=== PATIENT | female | born 1970 | race Caucasian/White ===

== ENCOUNTER 2017-06-21 05:43 | Inpatient (IN) | payer OTHER, SELFPAY ==
[2017-06-21] VITALS (49 sets, daily range): BP systolic 82–171; BP diastolic 50–74; PULSE 49–83; RESP 9–23; TEMP 34.2–38.3; O2SAT 79–100; BMI 31.5; BMI 29.4; BMI 29.5
[2017-06-21] MEDS: Etomidate 20 MG/10 ML Vial IV (05:49)
[2017-06-21] MEDS: Rocuronium Bromide 50 MG/5 ML Vial 100 MG IV (05:49)
[2017-06-21] MEDS: Atropine Sulfate 1 MG/10 ML Syringe 0.5 MG IV (05:58)
[2017-06-21] MEDS: 0.9% Normal Saline 1,000 ML 999 ML IV (06:02)
--- NOTE | 2017-06-21 06:03 | EKG12_ITS ---
Test Reason : BRADYCARDIA Blood Pressure : / mmHG Vent. Rate : 058 BPM Atrial Rate : 057 BPM P-R Int : 000 ms QRS Dur : 158 ms QT Int : 530 ms P-R-T Axes : 000 125 -02 degrees QTc Int : 520 ms Atrial fibrillation Right bundle branch block Left posterior fascicular block Bifascicular block Abnormal ECG Confirmed by ALONZO JEREZ, GERRY ([id number]), news video editor MARYAN AMBRIZ ([id number]) on 06/24/2017 3:31:26 PM Referred By: CLARENCE Confirmed By:GERRY ROSADO MD
[2017-06-21] MEDS: 0.9% Normal Saline 1,000 ML 1000 ML IV ×3 (06:17→06:57)
--- NOTE | 2017-06-21 06:20 | RAD_ITS ---
STUDY: X-RAY CHEST REASON FOR EXAM: Female, 47 years old. Endotracheal tube placement. Respiratory distress TECHNIQUE: Single AP portable view of the chest. COMPARISON: June 03, 2017 FINDINGS: Hemodialysis catheter is seen on the right side its tip is at the cavoatrial junction. Endotracheal tube is seen its tip is 4 cm superior to the suki. An NG tube is seen its tip is below the diaphragm is in good position. Patchy airspace opacities are seen in the right and left lungs are unchanged since the previous study suggesting pneumonia. There is no demonstrated pleural abnormality. Normal size heart. Normal mediastinum and demarcus. Normal visualized pulmonary arteries. Normal visualized aortic arch and descending thoracic aorta. Normal visualized thoracic spine. Normal visualized ribs, clavicles, and shoulders. There is no demonstrated abnormality of the visualized soft tissue structures of the upper abdomen. RAD/Chest 1 View (Portable) IMPRESSION: Stable bilateral patchy pneumonia. Electronically Signed: Jose Antonio Paredes MD at 7:23 EST Tel , Service support ,
[2017-06-21 06:36] LABS: Bedside Glucose > 500 mg/dL (70-110)
[2017-06-21 06:40] LABS: International Normalized Ratio 1.8; Prothrombin Time (Protime)PT. 19.9 SECONDS (11.7-14.9)
[2017-06-21 06:41] LABS: Partial Thromboplast Time 40.8 Seconds (24.1-36.2)
[2017-06-21 06:48] LABS: Hematocrit 31.4 % (37-47); Hemoglobin 9.3 g/dl (12.0-15.0); Mean Corp Hgb Conc 29.6 g/gl (32-36); Mean Corpuscular Hgb 31.1 pg (27.0-32.0); Mean Platelet Vol. 13.4 fl (6.2-12.0); Platelet Count 143 K/mm3 (150-450); Red Blood Count 2.99 M/mm3 (4.2-5.4); White Blood Count 11.9 K/mm3 (4.4-11.0)
[2017-06-21 06:49] LABS: Differential Indicated MANUAL DIFF; POSITIVE COUNT NO; POSITIVE DIFFERENTIAL NO; POSITIVE MORPHOLOGY YES
[2017-06-21 06:50] LABS: Base Excess -16 mmol/L (-2 to +2); Bicarbonate 13.6 mmol/L (22-26); Blood Gas Specimen Type ART; FI02 100; Mode A-C; O2 Delivery Device Vent; PEEP 5; PO2 155 mmHG (75-100); RR 14; SITE R Brachial; SO2 98 % (95-99); Time Given 630; Total Carbon Dioxide 15 mmol/L; Vt 450; pCO2 45.3 mmHg (35-45); pH 7.09 (7.35-7.45)
[2017-06-21] MEDS: Sodium Polystyrene Sulfonate 15 GM/60 ML UDC 30 GM PO (06:57)
[2017-06-21] MEDS: Calcium Chloride 1 GM/10 ML Syringe IV ×2 (06:57→07:19)
[2017-06-21] MEDS: Albuterol 2.5 MG/3 ML VIAL.NEB. INHALATION ×6 (07:01→23:17)
[2017-06-21 07:05] LABS: ALB/GLOB Ratio 0.5 RATIO (0.9-2.4); AST(SGOT) 127 U/L (15-37); Alanine Aminotransfer ALT/SGPT 73 U/L (13-56); Albumin, Serum 2.6 g/dL (3.2-5.0); Alkaline Phosphatase 535 U/L (45-117); Anion Gap 22 (5-15); BUN 50 mg/dL (7-18); BUN/Creat Ratio 6.8 RATIO (10-20); Chloride 91 mmol/L (98-107); Creatinine, Serum 7.39 mg/dL (0.55-1.02); EST Glomerular Filtration Rate 6 mL/min (>60); Est Glom Filt Rate - Afr Amer 8 mL/min (>60); Estimated Creatinine Clearance 9.49 ml/min; Globulin 4.9 g/dL (2.2-4.2); Glucose 694 mg/dL (70-110); Lactic Acid 12.6 mmol/L (0.4-2.0); Magnesium 3.5 mg/dL (1.6-2.6); Potassium 9.1 mmol/L (3.5-5.1); Protein, Total 7.5 g/dL (6.4-8.2); Sodium Level 128 mmol/L (136-145)
--- NOTE | 2017-06-21 07:06 | ED.RN ---
POTASSIUM 9.1 GLUCOSE 694 PHOS 13 [id number] CALL[address] LAB. DR LIMA AWARE
[2017-06-21] MEDS: 0.9% Normal Saline 1,000 ML 150 ML IV (07:19)
--- NOTE | 2017-06-21 07:20 | NURSING ---
VERSED STARTED AT 0637 AM. NOT COMING ACROSS IN THE COMPUTER TO SCAN.
--- NOTE | 2017-06-21 07:21 | ED.RN ---
Pacing stopped at 0711 by .
[2017-06-21 07:22] LABS: Anisocytosis 1+; Eosinophil 1 % (0-5); Hypochromasia 1+; Lymphocyte 16 % (19-41); Metamyelocyte 4 % (0-1); Monocyte 7 % (0-10); Neutrophil-Band 2 % (0-5); Neutrophil-Segmented 70 % (47-70); Nucleated Red Bld Cells,Manual 2 % (0-5); Polychromasia 1+; Total Cells Counted 100 (MANUAL DIFF)
[2017-06-21 07:23] LABS: Platelet Estimate SLT (ADEQ); Platelet Morphology LARGE
[2017-06-21 07:25] LABS: Absolute Neutrophil Count 8.6 X10^3/uL (2.0-7.7); Absolute Nucleated RBC Count 0.57 10^3/uL (0-5); NRBC Flagged by Analyzer 4.8 % (0-5)
--- NOTE | 2017-06-21 07:47 | ED.VISSUMM ---
- ER Visit Summary Date of Service: 06/21/17 Chief Complaint: Unresponsive History of Present Illness: The patient is a 47 F brought in by EMS for an unresponsive episode. The patient could not provide history, and so it was obtained from EMS and later her . The patient has a history of end-stage renal disease and is on hemodialysis Saturday, Saturday, and Saturday. Her last dialysis was Saturday. She had a fistula placed on Saturday. She missed dialysis on Saturday because she was not feeling well. was uneventful, but this morning she was very weak and had difficulty breathing. Her was unable to check her sugar. According to EMS, the patient's blood sugar read high. She had an altered mental status and was confused. She was hypoxic, and they had trouble obtaining an IV. They placed an IO and they were bagging the patient on arrival. The patient made some mumbling sounds, but I could not get any other information out of her on arrival. Physical Examination: Vital signs unremarkable except for hypothermia at 95? and bradycardia in the 50s with occasional pauses on the monitor. GCS was 10. Head and neck atraumatic. Airway intact. Coarse breath sounds bilaterally. Abdomen soft. Extremities grossly atraumatic. Skin appears slightly pale. Test Results: EKG showed signs of hyperkalemia with flattened T waves and wide QRS complexes. The rate was 58. White count 11.9, hemoglobin 9.3, and platelets 143. Sodium 128, potassium 9.1, chloride 91, CO2 15, anion gap 22, glucose 694, BUN 50, creatinine 7.93. Total bilirubin 1.1, alk phos 535, ALT 73, AST 127. INR 1.8 and PTT 40.8. Troponin normal. Lactate 12.6. Ketones negative. [place] 13. Mag 3.5. PH was 7.09, CO2 45.3, O2 155. Blood cultures and urine culture pending. Chest x-ray showed a patchy pneumonia and an endotracheal tube in good position. Emergency Department Course and Treatment: Patient arrived to the emergency department by EMS and immediately was taken to the resuscitation bay. She was hypoxic and had poor mentation. IV access was obtained. RSI was performed. She was treated with etomidate and rocuronium. She was intubated. First attempt with the Glidescope failed. Second attempt with direct visualization failed because the 7.5 tube was too big. Third attempt with the 7.0 tube was successful. She had good breath sounds and color change on capnography. Patient was placed on a ventilator. She did have some transient hypoxia. Her left lung was diminished, and so the endotracheal tube was removed about 3-4 cm. We had good breath sounds afterwards and a chest x-ray was taken that showed fluid overload and possible patchy infiltrates bilaterally. Endotracheal tube was in good position. Patient had IV access and fluid resuscitation was performed. She became hypotensive with a map in the mid 50s. Her heart rate was in the 50s as well with occasional pauses. The monitor appeared to show narrow complexes. She was given atropine with no effect. She was externally paced while awaiting results and while continuing resuscitation. A preliminary result from the lab was called and her potassium was 9. We obtained an EKG. This showed a wide QRS complex with flattened T waves, not quite sinusoidal. She was treated with calcium chloride, bicarb, Kayexalate, albuterol, insulin. I spoke with Dr. Jessica from nephrology. He is arranging for someone to come down to assess her for dialysis. I also spoke with Dr. Small, fiber technologist, and he is coming to evaluate the patient. We continued fluid resuscitation. She was started on cefepime. Blood cultures are pending. Her Versed sedation was changed to fentanyl. She was placed on an insulin drip. Dr. Small made some adjustments to her ventilator settings. Her blood pressure has improved to around 120 systolic. Heart rate about 60. She did not require further pacing. Her rhythm strip improved and showed sinus rhythm with a better QRS complex and T-wave morphology. According the sepsis guidelines, the patient had 30mL/kg normal saline. Cultures are pending. She was started on cefepime for pneumonia coverage. Hospitalist is at the bedside evaluating the patient for admission. is at the bedside. He was updated. The patient is full code. Treatment Plan: As above Disposition: Admission to ICU Impression: 1. Hypoxic respiratory failure 2. Hyperkalemia 3. Hyperglycemia 4. Pneumonia 5. Septic shock 6. End-stage renal disease This note was generated with ebridgeation software. It may contain incorrect words, spelling, and punctuation that were not noted in review of the chart prior to signing ED Disposition - Plan for ED Patient: Chief Complaint: Hyperglycemia Referrals: Town Doctor,Out of [Primary Care Provider] -
--- NOTE | 2017-06-21 08:00 | ED.DCSUM_ITS ---
- ER Visit Summary Date of Service: 06/21/17 Chief Complaint: Unresponsive History of Present Illness: The patient is a 47 F brought in by EMS for an unresponsive episode. The patient could not provide history, and so it was obtained from EMS and later her . The patient has a history of end- stage renal disease and is on hemodialysis Saturday, Saturday, and Saturday. Her last dialysis was Saturday. She had a fistula placed on Saturday. She missed dialysis on Saturday because she was not feeling well. was uneventful , but this morning she was very weak and had difficulty breathing. Her was unable to check her sugar. According to EMS, the patient's blood sugar read high. She had an altered mental status and was confused. She was hypoxic , and they had trouble obtaining an IV. They placed an IO and they were bagging the patient on arrival. The patient made some mumbling sounds, but I could not get any other information out of her on arrival. Physical Examination: Vital signs unremarkable except for hypothermia at 95? and bradycardia in the 50s with occasional pauses on the monitor. GCS was 10. Head and neck atraumatic. Airway intact. Coarse breath sounds bilaterally. Abdomen soft. Extremities grossly atraumatic. Skin appears slightly pale. Test Results: EKG showed signs of hyperkalemia with flattened T waves and wide QRS complexes. The rate was 58. White count 11.9, hemoglobin 9.3, and platelets 143. Sodium 128, potassium 9.1 , chloride 91, CO2 15, anion gap 22, glucose 694, BUN 50, creatinine 7.93. Total bilirubin 1.1, alk phos 535, ALT 73, AST 127. INR 1.8 and PTT 40.8. Troponin normal. Lactate 12.6. Ketones negative. [place] 13. Mag 3.5. PH was 7.09, CO2 45.3, O2 155. Blood cultures and urine culture pending. Chest x-ray showed a patchy pneumonia and an endotracheal tube in good position. Emergency Department Course and Treatment: Patient arrived to the emergency department by EMS and immediately was taken to the resuscitation bay. She was hypoxic and had poor mentation. IV access was obtained. RSI was performed. She was treated with etomidate and rocuronium. She was intubated. First attempt with the Glidescope failed. Second attempt with direct visualization failed because the 7.5 tube was too big. Third attempt with the 7.0 tube was successful. She had good breath sounds and color change on capnography. Patient was placed on a ventilator. She did have some transient hypoxia. Her left lung was diminished, and so the endotracheal tube was removed about 3-4 cm. We had good breath sounds afterwards and a chest x-ray was taken that showed fluid overload and possible patchy infiltrates bilaterally. Endotracheal tube was in good position. Patient had IV access and fluid resuscitation was performed. She became hypotensive with a map in the mid 50s. Her heart rate was in the 50s as well with occasional pauses. The monitor appeared to show narrow complexes. She was given atropine with no effect. She was externally paced while awaiting results and while continuing resuscitation. A preliminary result from the lab was called and her potassium was 9. We obtained an EKG. This showed a wide QRS complex with flattened T waves, not quite sinusoidal. She was treated with calcium chloride, bicarb, Kayexalate, albuterol, insulin. I spoke with Dr. Jessica from nephrology. He is arranging for someone to come down to assess her for dialysis. I also spoke with Dr. Small, drawer in [employer], and he is coming to evaluate the patient. We continued fluid resuscitation. She was started on cefepime. Blood cultures are pending. Her Versed sedation was changed to fentanyl. She was placed on an insulin drip. Dr. Small made some adjustments to her ventilator settings. Her blood pressure has improved to around 120 systolic. Heart rate about 60. She did not require further pacing. Her rhythm strip improved and showed sinus rhythm with a better QRS complex and T-wave morphology. According the sepsis guidelines, the patient had 30mL/kg normal saline. Cultures are pending. She was started on cefepime for pneumonia coverage. Hospitalist is at the bedside evaluating the patient for admission. is at the bedside. He was updated. The patient is full code. Treatment Plan: As above Disposition: Admission to ICU Impression: 1. Hypoxic respiratory failure 2. Hyperkalemia 3. Hyperglycemia 4. Pneumonia 5. Septic shock 6. End-stage renal disease This note was generated with DECAation software. It may contain incorrect words, spelling, and punctuation that were not noted in review of the chart prior to signing ED Disposition - Plan for ED Patient: Chief Complaint: Hyperglycemia Referrals: Town Doctor,Out of [Primary Care Provider] -
--- NOTE | 2017-06-21 08:01 | PCM.CON.CC ---
Reason for Consult Date of Consultation: 06/21/17 Reason for Consultation: Respiratory failure/metabolic encephalopathy History of Present Illness: The patient is a 47-year-old female, with a history as outlined below, who presented to the emergency department on the morning of June 21 after being found in an encephalopathic state by her . She does have a history of end-stage renal disease, for which she receives hemodialysis on Saturday/Saturday/Saturday. Her reports that this past Saturday she underwent fistula creation at [facility]. Shortly thereafter she began to feel ill and fatigued. She subsequently missed her Saturday dialysis session. He notes that upon awakening her this morning, she was quite lethargic and speaking in a nonsensical manner. The patient was recently admitted to the hospital May 17 through June 03 with DKA, respiratory failure and encephalopathy. On presentation to the emergency department, the patient was noted to be afebrile, bradycardic but hemodynamically stable. She was initially documented to be saturating 79% on room air. Initial laboratory evaluation revealed elevated white blood cell count to 12,000. INR was noted to be 1.8. Initial arterial blood gas revealed a pH of 7.09 with a corresponding PCO2 of 45. Chemistry profile was notable for a sodium of 128, potassium of 9.1, chloride of 91, serum bicarbonate of 15 and a creatinine of 7.39. The patient's glucose was significantly elevated to 694. Serum lactate was elevated to 12.6 and phosphorus was elevated to 13. Serum acetone level was negative. MRSA screen was negative. Initial plain film chest x-ray revealed patchy airspace opacities bilaterally. Given her an encephalopathic state on presentation to the ED, she was emergently intubated. The patient did receive supplemental IV fluids and was started on an insulin drip. The patient also became bradycardic. She did have EKG changes consisting of wide complex QRS. She was also started on antibiotics and subsequently transferred to the medical intensive care unit for ongoing management. Past Medical History Past Medical History (Chronic Problems): Chronic Problems End stage renal disease on dialysis (Chronic) Polyclonal gammopathy (Chronic) PAF (paroxysmal atrial fibrillation) (Chronic) Glaucoma (Chronic) Depression (Chronic) Hyperuricemia (Chronic) Hypertension (Chronic) DM type 1 (diabetes mellitus, type 1) (Chronic) Anemia (Chronic) Allergies Penicillins [PCN] Allergy (Verified 12/31/16 05:13) Hives Home Medications: Ambulatory Orders Medication Instructions Recorded Albuterol Inhaler [Ventolin Hfa] 2 puff INHALATION Q4H PRN PRN 10/28/16 Allopurinol [Zyloprim] 200 mg PO DAILY 10/28/16 Amlodipine [Norvasc] 10 mg PO DAILY 10/28/16 B Complex with Vitamin C 1 each PO DAILY 10/28/16 [B-Complex Plus Vitamin C] Calcium Acetate 667 mg PO TID 10/28/16 Docusate Sodium [Colace] 100 mg PO DAILY 10/28/16 Ergocalciferol [Vitamin D] 50,000 unit PO Q7D 10/28/16 Fluticasone 0.05% [Flonase Nasal 1 spray NASAL DAILY 10/28/16 [place]] Gabapentin [Neurontin] 100 mg PO QHS 10/28/16 Insulin Aspart [Novolog Flexpen] See Protocol SC TIDCM 10/28/16 Latanoprost 0.005% [Xalatan 1 drop EACH EYE QHS 10/28/16 Opthalmic] Levothyroxine [Synthroid] 50 mcg PO DAILY 10/28/16 Multivitamin/Iron/Folic Acid 1 each PO DAILY 10/28/16 [Centrum Adults Tablet] ProMETHAzine [Phenergan] 25 mg PO Q4H PRN PRN 10/28/16 Venlafaxine XR [Effexor Xr] 150 mg PO DAILY 10/28/16 Insulin Glargine [Lantus SoloStar 10 units SC QHS 05/17/17 Pen] Sevelamer Carbonate [Renvela] 800 mg PO TID 05/17/17 Metoprolol Tartrate [Lopressor 25 mg PO BID #60 tab 06/03/17 (beta dutch)] Vancomcyin 125 MG/ 5 ML Susp 125 mg PO Q6 #24 po.syringe 06/03/17 [Vancomycin 125mg/5mL Susp] Surgical History: hysterectomy, - - PD catheter placement, tunneled dialysis catheter placement Smoking Status: Never smoker - *Family History Maternal History Items: - - unable to obtain as pt is confused Review of Systems Unable to obtain accurate/complete ROS d/t: Due to current intubation and mechanical ventilation status Patient Problems: Active and Suspected Problems Hyperphosphatemia (Acute) Lactic acidosis (Acute) Abnormal LFTs (Acute) Metabolic acidosis (Acute) Objective: The patient's most recent lab work, culture data and imaging studies have all been personally reviewed. Blood cultures are pending. Rapid influenza screen was negative. Surface echocardiogram dated April 2017 revealed normal LV size and function with an ejection fraction of 50%. There was evidence of moderate pulmonary hypertension with a pulmonary artery systolic pressure estimated to be 64 mmHg. - Physical Exam General: - - Intubated and mechanically ventilated. Currently tolerating assist control without dyssynchrony noted. HEENT: Atraumatic, PERRLA, Normocephalic Oral: Moist Mucosa, No Gingival or Mucosal Lesions/ Ulcerations, - - Endotracheal and OG tubes in place Neck: Supple, No Nodes, Trachea Midline Lungs: No wheeze, Diminished, Rales, Rhonchi, - - Chest wall catheter in place. Cardiovascular: Normal S1, Normal S2, No murmurs, Irregular Rate Abdomen: Bowel Sounds Present, Soft, Non Tender, Obese Extremities: No clubbing, No cyanosis, No edema Skin: No rashes, No breakdown Musculoskeletal: No Muscle Wasting Lymphatic: No Cervical, Supraclavicular, or Inguinal Adenopathy Neurological: - - Nonfocal examination Vital Signs Temp Pulse Resp BP Pulse Ox 95.1 F L 68 18 128/65 H 100 06/21/17 07:39 06/21/17 07:40 06/21/17 07:40 06/21/17 07:39 06/21/17 07:40 Oxygen Delivery Method Mechanical Ventilator Weight: 207 lb 3.752 oz Body Mass Index (BMI) 31.5 Finger Stick Blood Glucose 600 Intake and Output for Last 24 Hours 06/19/17 06/20/17 06/21/17 23:59 23:59 23:59 Output Total 800 / 800 Balance -800 / -800 Microbiology Past 72 Hours 06/21/17 07:30 Influenza Types A,B Direct FA (BRIGIDO) - Final Mucosa - Nasopharyngeal Laboratory Tests Past 24 Hrs 06/21/17 06/21/17 06/21/17 06:00 06:00 06:00 WBC 11.9 H RBC 2.99 L Hgb 9.3 L Hct 31.4 L MCV 105.0 H MCH 31.1 MCHC 29.6 L RDW 19.0 H RDW Differential 72.0 H Plt Count 143 L MPV 13.4 H Neut % (Auto) Not Reportable Absolute Neuts (auto) 8.6 H Absolute Lymphs (auto) 1.90 Total Counted 100 Neutrophils % (Manual) 70 Band Neutrophils % 2 Lymphocytes % (Manual) 16 L Monocytes % (Manual) 7 Eosinophils % (Manual) 1 Metamyelocytes % 4 H Nucleated RBC % 4.8 Nucleated RBCs/100 WBC 2 Diff Path Review May foll Platelet Estimate SLT Plt Morphology Comment LARGE Polychromasia 1+ Hypochromasia 1+ Anisocytosis 1+ Absolute Retic 0.57 PT 19.9 H INR 1.8 APTT 40.8 H Specimen Type Sample Site pH Bicarbonate Actual POC Total CO2 Base Excess O2 Saturation O2 % ABG pCO2 ABG pO2 Respiration Rate O2 Delivery Device Vent Mode Tidal Volume POC PEEP Blood Gas Notified Whom Blood Gas Notified Time Sodium 128 L Potassium 9.1 H* Chloride 91 L Carbon Dioxide 15.0 L Anion Gap 22 H BUN 50 H Creatinine 7.39 H Estim Creat Clear Calc 9.49 Est GFR (MDRD) Af Amer 8 L Est GFR (MDRD) Non-Af 6 L BUN/Creatinine Ratio 6.8 L Glucose 694 H* Lactic Acid Calcium 9.0 Phosphorus 13.0 H* Magnesium 3.5 H Total Bilirubin 1.10 H AST 127 H ALT 73 H Alkaline Phosphatase 535 H Troponin I < 0.02 Total Protein 7.5 Albumin 2.6 L Globulin 4.9 H Albumin/Globulin Ratio 0.5 L Acetone Level 06/21/17 06/21/17 06/21/17 06:00 06:00 06:39 WBC RBC Hgb Hct MCV MCH MCHC RDW RDW Differential Plt Count MPV Neut % (Auto) Absolute Neuts (auto) Absolute Lymphs (auto) Total Counted Neutrophils % (Manual) Band Neutrophils % Lymphocytes % (Manual) Monocytes % (Manual) Eosinophils % (Manual) Metamyelocytes % Nucleated RBC % Nucleated RBCs/100 WBC Diff Path Review Platelet Estimate Plt Morphology Comment Polychromasia Hypochromasia Anisocytosis Absolute Retic PT INR APTT Specimen Type ART Sample Site R Brachial pH 7.09 L* Bicarbonate Actual 13.6 L POC Total CO2 15 Base Excess -16 L O2 Saturation 98 O2 % 100 ABG pCO2 45.3 H ABG pO2 155 H Respiration Rate 14 O2 Delivery Device Vent Vent Mode A-C Tidal Volume 450 POC PEEP 5 Blood Gas Notified Whom ED MD Blood Gas Notified Time 630 Sodium Potassium Chloride Carbon Dioxide Anion Gap BUN Creatinine Estim Creat Clear Calc Est GFR (MDRD) Af Amer Est GFR (MDRD) Non-Af BUN/Creatinine Ratio Glucose Lactic Acid 12.6 H* Calcium Phosphorus Magnesium Total Bilirubin AST ALT Alkaline Phosphatase Troponin I Total Protein Albumin Globulin Albumin/Globulin Ratio Acetone Level NEGATIVE POC Glucose 06/21/17 05:51 POC Glucose > 500 H* Clinical Impression(s) from Imaging Studies Chest X-Ray 06/21/17 06:20 IMPRESSION: Stable bilateral patchy pneumonia. Electronically Signed: Jose Antonio Paredes MD at 7:23 EST Tel , Service support , Assessment/Plan Active and Suspected Problems Hyperphosphatemia (Acute) Lactic acidosis (Acute) Abnormal LFTs (Acute) Metabolic acidosis (Acute) RECOMMENDATIONS: 1. Agree with broad-spectrum antibiotics pending infectious workup. 2. Discontinue serum bicarbonate infusion 3. Continue mechanical ventilatory support. Repeat arterial blood gas. 4. Check TSH and ammonia levels 5. Start subcutaneous heparin and Pepcid for prophylaxis 6. Continue insulin drip for now 7. Repeat serum lactate level 8. Nephrology consultation for emergent dialysis 9. Hold sedating medications IMPRESSIONS: 1. Acute hypoxemic and hypercarbic respiratory failure Concern for potential aspiration event in conjunction with #2 is likely inciting factors. Continue mechanical ventilatory support with augmentation of minute ventilation. Agree with broad-spectrum antibiotics, pending infectious workup. Wean FiO2 to maintain oxygen saturations at or above 90%. Limit sedating medications as tolerated. Plan for daily paired spontaneous awakening and breathing trials. 2. Encephalopathy likely metabolic in nature The patient did reportedly missed a dialysis session this week. In addition, she has a known history of hypothyroidism, so a TSH level will be checked. We will also plan to check serum ammonia level. 3. Severe sepsis As above, concern for aspiration event. Antibiotics will be continued. Trend serum lactate level. The patient has been adequately volume resuscitated. Continuous fluid infusion can be discontinued. 4. End-stage renal disease on hemodialysis/hyperkalemia Consultation placed to nephrology for emergent hemodialysis. Monitor metabolic derangements closely. 5. Severe hyperglycemia/uncontrolled type 1 diabetes mellitus The patient was started on an insulin drip in the emergency department. This will be continued, pending improvement in the patient's serum glucose levels. 6. Anion gap metabolic acidosis secondary to lactic acidemia Continue to trend serum lactate level. Anticipate improvement following hemodialysis and stabilization of the patient's hemodynamics. 7. Hyponatremia/hypochloremia/hyperphosphatemia Recheck BMP and phosphate levels status post hemodialysis completion. 8. Anemia/hypertension/hyperlipidemia/recurrent C. difficile colitis/hypothyroidism Complicates care, management, recovery and prognosis. Continue home Synthroid regimen. Will ask nutrition for tube feed recommendations. TIME: 50 minutes of critical care time, independent of procedures, was spent addressing the patient's acute respiratory failure, metabolic encephalopathy, severe sepsis, hyperkalemia due to end-stage renal disease, severe hyperglycemia, anion gap metabolic acidosis, hyponatremia, review of all data and collaboration with the care team. ([id number]) Code Visit [id number]: [id number] Critical care first hour
[2017-06-21 08:11] LABS: Bedside Glucose > 500 mg/dL (70-110)
--- NOTE | 2017-06-21 08:12 | RAD_ITS ---
STUDY: X-RAY CHEST REASON FOR EXAM: Female, 47 years old. Patient was found unresponsive. Elevated blood sugar. TECHNIQUE: Single AP portable view of the chest. COMPARISON: Comparison is made with prior examination of the liver and this morning at 6:32 AM. FINDINGS: A right sided temporary dialysis catheter is seen. The tip is in the right atrium. An endotracheal tube is in situ. The tip is at 3.5 cm proximal to the suki. An enteric gastric tube is seen with tip below the left hemidiaphragm. Since prior examination, there has been progressive airspace disease in the right hemithorax as well as in the left upper lobe. This may represent superimposed pulmonary edema on bilateral patchy infiltrates. There is no demonstrated pleural abnormality. There is borderline cardiomegaly. Normal mediastinum and demarcus. Normal visualized pulmonary arteries. Normal visualized aortic arch and descending thoracic aorta. Normal visualized thoracic spine. Normal visualized ribs, clavicles, and shoulders. There is no demonstrated abnormality of the visualized soft tissue structures of the upper abdomen. RAD/Chest 1 View (Portable) IMPRESSION: Progressive bilateral airspace disease worse in the right hemithorax. Follow-up is recommended. Electronically Signed: Thuan Benton MD at 8:58 EST Tel [phone], Service support ,
--- NOTE | 2017-06-21 08:35 | HP.PCM_ITS ---
Problem List (1) Acute respiratory failure with hypoxia Status: Acute (2) Anemia Status: Chronic (3) Hyperkalemia Status: Acute (4) Hyponatremia Status: Acute (5) Metabolic encephalopathy Status: Acute (6) PAF (paroxysmal atrial fibrillation) Status: Chronic (7) Polyclonal gammopathy Status: Chronic (8) Severe sepsis Status: Acute (9) DM type 1 (diabetes mellitus, type 1) Status: Chronic Qualifiers: Diabetes mellitus complication status: with ketoacidosis Diabetes mellitus complication detail: without coma Qualified Code(s): E10.10 - Type 1 diabetes mellitus with ketoacidosis without coma (10) Depression Status: Chronic (11) End stage renal disease on dialysis Status: Chronic (12) Glaucoma Status: Chronic (13) Hypertension Status: Chronic (14) Hyperuricemia Status: Chronic (15) Hyperphosphatemia Status: Acute (16) Lactic acidosis Status: Acute (17) Abnormal LFTs Status: Acute History of Present Illness Date of Admission: 06/21/17 Chief Complaint: lethargy/hypothermia/altered mental status The patient is a 47 year old F with a past medical history of diabetes mellitus type 1, end-stage renal disease on hemodialysis, hypertension, paroxysmal atrial fibrillation, 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 Her tell me that she had been doing well since DC and that she drove herself to dialysis on Saturday. She had an AV fistula placed this week and did not feel well after the procedure. She did not go to dialysis on Sat because she did not feel well. She laid in bed most of the day on Sat and except to get up and go to the BR. She had nausea on 06/20 and may have vomited. When he got up to go to work today she was very lethargic and he tried to help her get out of bed but she fell right back and mental status was altered. He called 911 and she was brought to the hospital. Vital signs at presentation to the hospital were temp 96.3, heart rate 49, blood pressure 122/62, respiratory rate 10 and she was 79% saturated on room air. She was intubated by Dr. Banegas in the ER. EKG showed wide QRS complexes with NS ST and T wave changes. She was treated with insulin, calcium and bicarb. Significant lab included potassium 9.1, serum bicarb 15, glucose 694, lactic acid 12.6, phosphorus 13, AST of 127, ALT of 73, alkaline phosphatase of 535 and a bilirubin of 1.1. She has had a prior cholecystectomy. Troponin was less than 0.02. ABG showed a pH of 7.09, PO2 of 155 and PCO2 of 453 on a 100% by 2. PT is 19.9 and Coumadin was not prescribed at her last DC from the hospital. White blood cell count was 11.9 with a hemoglobin of 9.3 and platelets of 143,000. There are 4 metamyelocytes and 70% neutrophils. Chest x-ray shows infiltrates but this may still be resolving from the recent admission. She is being admitted to the hospital with severe sepsis with lactic acidosis, respiratory failure with hypoxemia and metabolic encephalopathy likely due to PNA. She has a PCN allergy but tolerated Cefepime at the last admission. Past Medical History Past Medical History (Chronic Problems): Chronic Problems End stage renal disease on dialysis (Chronic) Polyclonal gammopathy (Chronic) PAF (paroxysmal atrial fibrillation) (Chronic) Glaucoma (Chronic) Depression (Chronic) Hyperuricemia (Chronic) Hypertension (Chronic) DM type 1 (diabetes mellitus, type 1) (Chronic) Anemia (Chronic) Allergies Penicillins [PCN] Allergy (Verified 12/31/16 05:13) Hives Home Medications: Ambulatory Orders Medication Instructions Recorded Albuterol Inhaler [Ventolin Hfa] 2 puff INHALATION Q4H PRN PRN 10/28/16 Allopurinol [Zyloprim] 200 mg PO DAILY 10/28/16 Amlodipine [Norvasc] 10 mg PO DAILY 10/28/16 B Complex with Vitamin C 1 each PO DAILY 10/28/16 [B-Complex Plus Vitamin C] Calcium Acetate 667 mg PO TID 10/28/16 Docusate Sodium [Colace] 100 mg PO DAILY 10/28/16 Ergocalciferol [Vitamin D] 50,000 unit PO Q7D 10/28/16 Fluticasone 0.05% [Flonase Nasal 1 spray NASAL DAILY 10/28/16 [place]] Gabapentin [Neurontin] 100 mg PO QHS 10/28/16 Insulin Aspart [Novolog Flexpen] See Protocol SC TIDCM 10/28/16 Latanoprost 0.005% [Xalatan 1 drop EACH EYE QHS 10/28/16 Opthalmic] Levothyroxine [Synthroid] 50 mcg PO DAILY 10/28/16 Multivitamin/Iron/Folic Acid 1 each PO DAILY 10/28/16 [Centrum Adults Tablet] ProMETHAzine [Phenergan] 25 mg PO Q4H PRN PRN 10/28/16 Venlafaxine XR [Effexor Xr] 150 mg PO DAILY 10/28/16 Insulin Glargine [Lantus SoloStar 10 units SC QHS 05/17/17 Pen] Sevelamer Carbonate [Renvela] 800 mg PO TID 05/17/17 Metoprolol Tartrate [Lopressor 25 mg PO BID #60 tab 06/03/17 (beta dutch)] Vancomcyin 125 MG/ 5 ML Susp 125 mg PO Q6 #24 po.syringe 06/03/17 [Vancomycin 125mg/5mL Susp] Surgical History: cholecystectomy, hysterectomy, - - PD catheter placement, tunneled dialysis catheter placement. AV fistula 06/08/17 Psychiatric History: Depression Lives: Spouse/ Significant Other Smoking Status: Never smoker Tobacco Use: Non-smoker Alcohol: None Drugs: None - *Family History Maternal History Items: - - unable to obtain as pt is confused Review of Systems Constitutional: Reports: Malaise, Weakness Gastrointestinal: Reports: Nausea Neurological: Reports: Confusion, - - somnolence Unable to obtain accurate/complete ROS d/t: intubated and sedated. VTE Information - Inpt Only VTE Present on Admission: No VTE Mechan Device Prophylaxis: SCD's, Knee High PRAVEEN Hose VTE Pharm Prophylaxis ordered?: Yes Patient Problems: Active and Suspected Problems Hyperphosphatemia (Acute) Lactic acidosis (Acute) Abnormal LFTs (Acute) Metabolic acidosis (Acute) - Physical Exam General: - - sedated on a ventilator HEENT: Atraumatic, PERRLA, Normocephalic, - - alopecia Oral: Dry Mucosa Neck: Supple, Trachea Midline Lungs: Clear to auscultation Cardiovascular: Regular rate, Regular Rhythm, Normal S1, Normal S2, No murmurs, No rub noted, No Gallop Abdomen: Soft, Non-Distended, Hypoactive Bowel Sounds, Obese Extremities: No clubbing, No cyanosis, No edema Skin: No rashes, No breakdown Vital Signs Temp Pulse Resp BP Pulse Ox 95.1 F L 68 18 128/65 H 100 06/21/17 07:39 06/21/17 07:40 06/21/17 07:40 06/21/17 07:39 06/21/17 07:40 Oxygen Delivery Method Mechanical Ventilator Weight: 207 lb 3.752 oz Body Mass Index (BMI) 31.5 Finger Stick Blood Glucose 600 Intake and Output for Last 24 Hours 06/19/17 06/20/17 06/21/17 23:59 23:59 23:59 Output Total 800 / 800 Balance -800 / -800 Microbiology Past 72 Hours 06/21/17 07:30 Influenza Types A,B Direct FA (BRIGIDO) - Final Mucosa - Nasopharyngeal Laboratory Tests Past 24 Hrs 06/21/17 06/21/17 06/21/17 06:00 06:00 06:00 WBC 11.9 H RBC 2.99 L Hgb 9.3 L Hct 31.4 L MCV 105.0 H MCH 31.1 MCHC 29.6 L RDW 19.0 H RDW Differential 72.0 H Plt Count 143 L MPV 13.4 H Neut % (Auto) Not Reportable Absolute Neuts (auto) 8.6 H Absolute Lymphs (auto) 1.90 Total Counted 100 Neutrophils % (Manual) 70 Band Neutrophils % 2 Lymphocytes % (Manual) 16 L Monocytes % (Manual) 7 Eosinophils % (Manual) 1 Metamyelocytes % 4 H Nucleated RBC % 4.8 Nucleated RBCs/100 WBC 2 Diff Path Review May foll Platelet Estimate SLT Plt Morphology Comment LARGE Polychromasia 1+ Hypochromasia 1+ Anisocytosis 1+ Absolute Retic 0.57 PT 19.9 H INR 1.8 APTT 40.8 H Specimen Type Sample Site pH Bicarbonate Actual POC Total CO2 Base Excess O2 Saturation O2 % ABG pCO2 ABG pO2 Respiration Rate O2 Delivery Device Vent Mode Tidal Volume POC PEEP Blood Gas Notified Whom Blood Gas Notified Time Sodium 128 L Potassium 9.1 H* Chloride 91 L Carbon Dioxide 15.0 L Anion Gap 22 H BUN 50 H Creatinine 7.39 H Estim Creat Clear Calc 9.49 Est GFR (MDRD) Af Amer 8 L Est GFR (MDRD) Non-Af 6 L BUN/Creatinine Ratio 6.8 L Glucose 694 H* Lactic Acid Calcium 9.0 Phosphorus 13.0 H* Magnesium 3.5 H Total Bilirubin 1.10 H AST 127 H ALT 73 H Alkaline Phosphatase 535 H Troponin I < 0.02 Total Protein 7.5 Albumin 2.6 L Globulin 4.9 H Albumin/Globulin Ratio 0.5 L Acetone Level 06/21/17 06/21/17 06/21/17 06:00 06:00 06:39 WBC RBC Hgb Hct MCV MCH MCHC RDW RDW Differential Plt Count MPV Neut % (Auto) Absolute Neuts (auto) Absolute Lymphs (auto) Total Counted Neutrophils % (Manual) Band Neutrophils % Lymphocytes % (Manual) Monocytes % (Manual) Eosinophils % (Manual) Metamyelocytes % Nucleated RBC % Nucleated RBCs/100 WBC Diff Path Review Platelet Estimate Plt Morphology Comment Polychromasia Hypochromasia Anisocytosis Absolute Retic PT INR APTT Specimen Type ART Sample Site R Brachial pH 7.09 L* Bicarbonate Actual 13.6 L POC Total CO2 15 Base Excess -16 L O2 Saturation 98 O2 % 100 ABG pCO2 45.3 H ABG pO2 155 H Respiration Rate 14 O2 Delivery Device Vent Vent Mode A-C Tidal Volume 450 POC PEEP 5 Blood Gas Notified Whom ED MD Blood Gas Notified Time 630 Sodium Potassium Chloride Carbon Dioxide Anion Gap BUN Creatinine Estim Creat Clear Calc Est GFR (MDRD) Af Amer Est GFR (MDRD) Non-Af BUN/Creatinine Ratio Glucose Lactic Acid 12.6 H* Calcium Phosphorus Magnesium Total Bilirubin AST ALT Alkaline Phosphatase Troponin I Total Protein Albumin Globulin Albumin/Globulin Ratio Acetone Level NEGATIVE POC Glucose 06/21/17 06/21/17 08:06 05:51 POC Glucose > 500 H* > 500 H* Assessment/Plan Active and Suspected Problems Hyperphosphatemia (Acute) Lactic acidosis (Acute) Abnormal LFTs (Acute) Metabolic acidosis (Acute) Impressions 1. acute respiratory failure with hypoxemia and borderline hypercarbia 2. severe sepsis - possible aspiration 3. severe lactic acidosis 4. hyperkalemia 5. Hyperphosphatemia 6. DM I with uncontrolled blood sugars 7. ESRD on HD 8. metabolic encephalopathy 9. anemia of CRF 10. hx HTN 11. HLD 12. hx of recurrent episodes of C DIFF admit to the ICU Cefepime and IV Flagyl for suspected aspiration Continuous insulin infusion BMP, MAG, Phos every 4 hours Recheck ABG at 0930 HD today - discussed with Dr. Andrade Has been non-compliant with diet at home, drinking large amounts of Edward D which is orange juice. Code Visit Inpatient E&M: 97561 Init Hosp L3
--- NOTE | 2017-06-21 08:50 | NURSING ---
Pt to ICU bed 3 from ER. Unable to hang IV ATB at this time d/t pt will be getting dialysis.
--- NOTE | 2017-06-21 09:30 | NURSING ---
Pacer pad from ED was placed underneath tunneled dialysis catheter drsg, right next to tunneled dialysis catheter insertion site. 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
[2017-06-21] MEDS: Chlorhexidine 15 ML PO ×2 (10:00→22:08)
[2017-06-21 10:28] LABS: Reflex Lactate? Y
[2017-06-21] MEDS: fentaNYL 100 MCG/2 ML Ampul 50 MCG IV ×2 (10:30→15:35)
[2017-06-21 10:37] LABS: Anion Gap 17 (5-15); BUN 48 mg/dL (7-18); BUN/Creat Ratio 7.1 RATIO (10-20); Chloride 98 mmol/L (98-107); Creatinine, Serum 6.78 mg/dL (0.55-1.02); EST Glomerular Filtration Rate 7 mL/min (>60); Est Glom Filt Rate - Afr Amer 8 mL/min (>60); Estimated Creatinine Clearance 10.35 ml/min; Glucose 484 mg/dL (70-110); Phosphorus 9.9 mg/dL (2.5-4.9); Potassium 6.4 mmol/L (3.5-5.1); Sodium Level 133 mmol/L (136-145)
[2017-06-21 10:37] LABS: Lactic Acid 8.5 mmol/L (0.4-2.0)
[2017-06-21 10:51] LABS: Bedside Glucose 479 mg/dL (70-110)
[2017-06-21 10:51] LABS: Bedside Glucose 256 mg/dL (70-110)
[2017-06-21 10:55] LABS: Allen Test POS; Base Excess 1 mmol/L (-2 to +2); Bicarbonate 26.4 mmol/L (22-26); Blood Gas Specimen Type ART; FI02 60; Mode A-C; O2 Delivery Device Vent; PEEP 5; PO2 153 mmHG (75-100); RR 16; SITE R Radial; SO2 99 % (95-99); Time Given 1049; Total Carbon Dioxide 28 mmol/L; Vt 500; pCO2 49.2 mmHg (35-45); pH 7.34 (7.35-7.45)
[2017-06-21 11:27] LABS: M R Staph aureus DNA By PCR Negative (Negative); Probe Check PASS; Specimen Processing Control PASS
--- NOTE | 2017-06-21 13:10 | PCM.CONS.R ---
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 Had her last session of dialysis Saturday. And to stay she had the AV fistula placed. Next day Saturday, she feels tired and she did go to her regular hemodialysis session. He spent Saturday and in bed. Patient woke up today confused and was not able to get out of bed. Patient husbands brought her here to the emergency room where she was found to have severe hyperkalemia potassium 9 along with a QRS widening EKG. also was found to have hypoxemia, hyperglycemia and metabolic acidosis with high lactic acid. Patient was intubated in the emergency room. I was called about this patient for urgent dialysis. Seen now during her hemodialysis session. Repeated potassium during dialysis showed potassium down to 6.4. Review of systems: Not obtainable due to the patient condition. Currently intubated] - Allergies Allergies: Allergies Penicillins [PCN] Allergy (Verified 12/31/16 05:13) Hives - Current Medications Current Medications: Current Medications Albuterol Sulfate (Ventolin Aerosols) 2.5 mg INHALATION Q2H PRN PRN PRN Reason: WHEEZING Albuterol Sulfate (Ventolin Aerosols) 2.5 mg INHALATION Q4H.RT [place] Allopurinol (Zyloprim) 200 mg NG DAILYCM [place] Calcium Acetate (Phoslo Gel Cap) 667 mg NG TIDCM [place] Chlorhexidine Gluconate () 15 ml PO BID [place] Cholecalciferol (Vitamin D) 1,000 unit NG DAILY [place] Dextrose (D50w Syringe) 0 gm IV X1 PRN; Protocol PRN Reason: Hypoglycemia Famotidine (Pepcid) 20 mg GT BID [place] Heparin Sodium (Porcine) () 5,000 units SC Q8 [place] Insulin Aspart 100 unit/ (Sodium Chloride) 100 mls @ 9.4 mls/hr CONT INF .[id number] [place]; 0.1 UNITS/KG/HR PRN Reason: Protocol Last Admin: 06/21/17 08:01 Dose: 9.4 mls/hr Fentanyl () 100 mls @ 2.5 mls/hr IV .Q40H [place] Last Admin: 06/21/17 08:01 Dose: 2.5 mls/hr Cefepime HCl 1 gm/ Sodium (Chloride) 50 mls @ 100 mls/hr IV X1 ONE Stop: 06/21/17 14:29 Metronidazole (Flagyl) 500 mg in 100 mls @ 100 mls/hr IV Q8 [place] Sodium Chloride () 250 mls @ 15 mls/hr IV .[id number] PRN PRN Reason: SALINE FLUSH Sodium Chloride () 250 mls @ 15 mls/hr IV .[id number] PRN PRN Reason: SALINE FLUSH Cefepime HCl 0.5 gm/ Sodium (Chloride) 50 mls @ 100 mls/hr IV Q24H [facility] Latanoprost (Xalatan Opthalmic) 1 drop EACH EYE QHS [facility] Levothyroxine Sodium (Synthroid) 50 mcg NG DAILY@0600 [place] Metoprolol Tartrate (Lopressor (Beta [place])) 25 mg NG BID [facility] Non-Formulary Medication (Sevelamer Carbonate) 800 mg NG TID [place] Ondansetron HCl (Zofran) 4 mg IV Q8H PRN PRN PRN Reason: Nausea Sodium Chloride () 5 - 30 ml IV UD PRN PRN Reason: SALINE FLUSH Venlafaxine HCl (Effexor) 75 mg NG BID [place] - Past Medical History Past Medical History (Chronic Problems): Chronic Problems End stage renal disease on dialysis (Chronic) Polyclonal gammopathy (Chronic) PAF (paroxysmal atrial fibrillation) (Chronic) Glaucoma (Chronic) Depression (Chronic) Hyperuricemia (Chronic) Hypertension (Chronic) DM type 1 (diabetes mellitus, type 1) (Chronic) Anemia (Chronic) - Past Surgical History Surgical History: hysterectomy, - - PD catheter placement, tunneled dialysis catheter placement - Social History Smoking Status: Never smoker Alcohol: None Drugs: None - Family History Maternal History Items: - - unable to obtain as pt is confused Patient Problems: Active and Suspected Problems Hyperphosphatemia (Acute) Lactic acidosis (Acute) Abnormal LFTs (Acute) Metabolic acidosis (Acute) - Physical Exam General: - - Intubated HEENT: Atraumatic Oral: Moist Mucosa Neck: Supple, No JVD, - - E-tube in place Lungs: Clear to auscultation, - - Equal air entry Cardiovascular: Regular rate, Regular Rhythm, Normal S1, Normal S2 Abdomen: Bowel Sounds Present, Soft Extremities: No clubbing, No cyanosis, No edema Skin: No rashes Lymphatic: No Cervical, Supraclavicular, or Inguinal Adenopathy Neurological: - - She is intubated. Pupils are reactive to light Psych/Mental Status: - - Intubated Vital Signs Temp Pulse Resp BP Pulse Ox 93.5 F L 64 19 H 121/66 H 100 06/21/17 08:38 06/21/17 10:12 06/21/17 10:12 06/21/17 08:38 06/21/17 10:12 Oxygen Delivery Method Mechanical Ventilator Weight: 94 kg Laboratory Tests Past 24 Hrs 06/21/17 06/21/17 06/21/17 09:20 09:20 09:20 Specimen Type Sample Site pH Bicarbonate Actual POC Total CO2 Base Excess O2 Saturation O2 % ABG pCO2 ABG pO2 Iam Test Respiration Rate O2 Delivery Device Vent Mode Tidal Volume POC PEEP Blood Gas Notified Whom Blood Gas Notified Time Sodium 133 L Potassium 6.4 H* Chloride 98 Carbon Dioxide 18.0 L Anion Gap 17 H BUN 48 H Creatinine 6.78 H Estim Creat Clear Calc 10.35 Est GFR (MDRD) Af Amer 8 L Est GFR (MDRD) Non-Af 7 L BUN/Creatinine Ratio 7.1 L Glucose 484 H* Lactic Acid Calcium 10.0 Phosphorus 9.9 H* Magnesium 3.0 H Troponin I 0.02 TSH 13.30 H MRSA (PCR) 06/21/17 06/21/17 06/21/17 09:30 09:40 10:48 Specimen Type ART Sample Site R Radial pH 7.34 L Bicarbonate Actual 26.4 H POC Total CO2 28 Base Excess 1 O2 Saturation 99 O2 % 60 ABG pCO2 49.2 H ABG pO2 153 H Iam Test POS Respiration Rate 16 O2 Delivery Device Vent Vent Mode A-C Tidal Volume 500 POC PEEP 5 Blood Gas Notified Whom ICU Blood Gas Notified Time 1049 Sodium Potassium Chloride Carbon Dioxide Anion Gap BUN Creatinine Estim Creat Clear Calc Est GFR (MDRD) Af Amer Est GFR (MDRD) Non-Af BUN/Creatinine Ratio Glucose Lactic Acid 8.5 H* Calcium Phosphorus Magnesium Troponin I TSH MRSA (PCR) Negative POC Glucose 06/21/17 06/21/17 06/21/17 10:34 09:19 08:06 POC Glucose 256 H 479 H* > 500 H* Assessment/Plan Active and Suspected Problems Hyperphosphatemia (Acute) Lactic acidosis (Acute) Abnormal LFTs (Acute) Metabolic acidosis (Acute) 1-end-stage renal disease patient. On Saturday hemodialysis schedule. Hemodialysis access right IJ tunneled catheter. Patient missed HD session on 06/19 Patient is being dialyzed this morning for hyperkalemia. Blood flow 400, dialysate flow 600, ultrafiltration 1.5 m I will reevaluate the patient for dialysis tomorrow. Please check BMP after dialysis Dose medications for GFR < 10 ml/min/1.7 m2 2-hyperkalemia: most probably due to hyperglycemia with shifting along with missing hemodialysis session. Patient presented with potassium 9 with EKG changes. Patient received calcium gluconate and insulin along with bicarb drip. patient is being dialyzed for one K bath for 1 hour and then 2K for the rest of treatment. Potassium is trending down. BMP after hemodialysis session. 3-gap metabolic acidosis with lactic acidosis. Should improve with hemodialysis. Patient is being dialyzed with bicarb 37. Check BMP after dialysis. 4-acute change in mental status. Multifactorial. This includes sepsis and missing hemodialysis session. Patient is being treated with antibiotics for pneumonia. Please dose cefepime for end-stage renal disease patient. 5-acute hypoxemic respiratory failure. Intubated. management as per the ICU team. 6-hyperglycemia. Patient is on insulin drip. Will defer the management to the ICU team I will continue to follow. Please do not hesitate to call me with any questions or concern Declan Tomas MD [phone]
[2017-06-21 13:16] LABS: Bedside Glucose 148 mg/dL (70-110)
[2017-06-21 13:16] LABS: Bedside Glucose 76 mg/dL (70-110)
--- NOTE | 2017-06-21 13:22 | CON.PCM_ITS ---
Problem List (1) Metabolic acidosis Status: Acute (2) Lactic acidosis Status: Acute (3) End stage renal disease on dialysis Status: Chronic (4) Hyperkalemia Status: Acute Consultation - Renal PCP/ Referring MD: Requesting physician: [] Primary care physician: Out [facility] - History of Present Illness History of Present Illness: The patient is a 47 year old F 47 year old F with a past medical history of diabetes mellitus type 1, end-stage renal disease on hemodialysis on Saturday hemodialysis schedule at [facility], hypertension, paroxysmal atrial fibrillation, 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 Had her last session of dialysis Saturday. And to stay she had the AV fistula placed. Next day Saturday, she feels tired and she did go to her regular hemodialysis session. He spent Saturday and in bed. Patient woke up today confused and was not able to get out of bed. Patient husbands brought her here to the emergency room where she was found to have severe hyperkalemia potassium 9 along with a QRS widening EKG. also was found to have hypoxemia, hyperglycemia and metabolic acidosis with high lactic acid. Patient was intubated in the emergency room. I was called about this patient for urgent dialysis. Seen now during her hemodialysis session. Repeated potassium during dialysis showed potassium down to 6.4. Review of systems: Not obtainable due to the patient condition. Currently intubated] - Allergies Allergies: Allergies Penicillins [PCN] Allergy (Verified 12/31/16 05:13) Hives - Current Medications Current Medications: Current Medications Albuterol Sulfate (Ventolin Aerosols) 2.5 mg INHALATION Q2H PRN PRN PRN Reason: WHEEZING Albuterol Sulfate (Ventolin Aerosols) 2.5 mg INHALATION Q4H.RT [place] Allopurinol (Zyloprim) 200 mg NG DAILYCM [place] Calcium Acetate (Phoslo Gel Cap) 667 mg NG TIDCM [place] Chlorhexidine Gluconate () 15 ml PO BID [place] Cholecalciferol (Vitamin D) 1,000 unit NG DAILY [place] Dextrose (D50w Syringe) 0 gm IV X1 PRN; Protocol PRN Reason: Hypoglycemia Famotidine (Pepcid) 20 mg GT BID [place] Heparin Sodium (Porcine) () 5,000 units SC Q8 [place] Insulin Aspart 100 unit/ (Sodium Chloride) 100 mls @ 9.4 mls/hr CONT INF .[id number] [place]; 0.1 UNITS/KG/HR PRN Reason: Protocol Last Admin: 06/21/17 08:01 Dose: 9.4 mls/hr Fentanyl () 100 mls @ 2.5 mls/hr IV .Q40H [place] Last Admin: 06/21/17 08:01 Dose: 2.5 mls/hr Cefepime HCl 1 gm/ Sodium (Chloride) 50 mls @ 100 mls/hr IV X1 ONE Stop: 06/21/17 14:29 Metronidazole (Flagyl) 500 mg in 100 mls @ 100 mls/hr IV Q8 [place] Sodium Chloride () 250 mls @ 15 mls/hr IV .[id number] PRN PRN Reason: SALINE FLUSH Sodium Chloride () 250 mls @ 15 mls/hr IV .[id number] PRN PRN Reason: SALINE FLUSH Cefepime HCl 0.5 gm/ Sodium (Chloride) 50 mls @ 100 mls/hr IV Q24H [facility] Latanoprost (Xalatan Opthalmic) 1 drop EACH EYE QHS [facility] Levothyroxine Sodium (Synthroid) 50 mcg NG DAILY@0600 [place] Metoprolol Tartrate (Lopressor (Beta Antony)) 25 mg NG BID [facility] Non-Formulary Medication (Sevelamer Carbonate) 800 mg NG TID [place] Ondansetron HCl (Zofran) 4 mg IV Q8H PRN PRN PRN Reason: Nausea Sodium Chloride () 5 - 30 ml IV UD PRN PRN Reason: SALINE FLUSH Venlafaxine HCl (Effexor) 75 mg NG BID [place] - Past Medical History Past Medical History (Chronic Problems): Chronic Problems End stage renal disease on dialysis (Chronic) Polyclonal gammopathy (Chronic) PAF (paroxysmal atrial fibrillation) (Chronic) Glaucoma (Chronic) Depression (Chronic) Hyperuricemia (Chronic) Hypertension (Chronic) DM type 1 (diabetes mellitus, type 1) (Chronic) Anemia (Chronic) - Past Surgical History Surgical History: hysterectomy, - - PD catheter placement, tunneled dialysis catheter placement - Social History Smoking Status: Never smoker Alcohol: None Drugs: None - Family History Maternal History Items: - - unable to obtain as pt is confused Patient Problems: Active and Suspected Problems Hyperphosphatemia (Acute) Lactic acidosis (Acute) Abnormal LFTs (Acute) Metabolic acidosis (Acute) - Physical Exam General: - - Intubated HEENT: Atraumatic Oral: Moist Mucosa Neck: Supple, No JVD, - - E-tube in place Lungs: Clear to auscultation, - - Equal air entry Cardiovascular: Regular rate, Regular Rhythm, Normal S1, Normal S2 Abdomen: Bowel Sounds Present, Soft Extremities: No clubbing, No cyanosis, No edema Skin: No rashes Lymphatic: No Cervical, Supraclavicular, or Inguinal Adenopathy Neurological: - - She is intubated. Pupils are reactive to light Psych/Mental Status: - - Intubated Vital Signs Temp Pulse Resp BP Pulse Ox 93.5 F L 64 19 H 121/66 H 100 06/21/17 08:38 06/21/17 10:12 06/21/17 10:12 06/21/17 08:38 06/21/17 10:12 Oxygen Delivery Method Mechanical Ventilator Weight: 94 kg Laboratory Tests Past 24 Hrs 06/21/17 06/21/17 06/21/17 09:20 09:20 09:20 Specimen Type Sample Site pH Bicarbonate Actual POC Total CO2 Base Excess O2 Saturation O2 % ABG pCO2 ABG pO2 Iam Test Respiration Rate O2 Delivery Device Vent Mode Tidal Volume POC PEEP Blood Gas Notified Whom Blood Gas Notified Time Sodium 133 L Potassium 6.4 H* Chloride 98 Carbon Dioxide 18.0 L Anion Gap 17 H BUN 48 H Creatinine 6.78 H Estim Creat Clear Calc 10.35 Est GFR (MDRD) Af Amer 8 L Est GFR (MDRD) Non-Af 7 L BUN/Creatinine Ratio 7.1 L Glucose 484 H* Lactic Acid Calcium 10.0 Phosphorus 9.9 H* Magnesium 3.0 H Troponin I 0.02 TSH 13.30 H MRSA (PCR) 06/21/17 06/21/17 06/21/17 09:30 09:40 10:48 Specimen Type ART Sample Site R Radial pH 7.34 L Bicarbonate Actual 26.4 H POC Total CO2 28 Base Excess 1 O2 Saturation 99 O2 % 60 ABG pCO2 49.2 H ABG pO2 153 H Iam Test POS Respiration Rate 16 O2 Delivery Device Vent Vent Mode A-C Tidal Volume 500 POC PEEP 5 Blood Gas Notified Whom ICU Blood Gas Notified Time 1049 Sodium Potassium Chloride Carbon Dioxide Anion Gap BUN Creatinine Estim Creat Clear Calc Est GFR (MDRD) Af Amer Est GFR (MDRD) Non-Af BUN/Creatinine Ratio Glucose Lactic Acid 8.5 H* Calcium Phosphorus Magnesium Troponin I TSH MRSA (PCR) Negative POC Glucose 06/21/17 06/21/17 06/21/17 10:34 09:19 08:06 POC Glucose 256 H 479 H* > 500 H* Assessment/Plan Active and Suspected Problems Hyperphosphatemia (Acute) Lactic acidosis (Acute) Abnormal LFTs (Acute) Metabolic acidosis (Acute) 1-end-stage renal disease patient. On Saturday hemodialysis schedule. Hemodialysis access right IJ tunneled catheter. Patient missed HD session on 06/19 Patient is being dialyzed this morning for hyperkalemia. Blood flow 400, dialysate flow 600, ultrafiltration 1.5 m I will reevaluate the patient for dialysis tomorrow. Please check BMP after dialysis Dose medications for GFR < 10 ml/min/1.7 m2 2-hyperkalemia: most probably due to hyperglycemia with shifting along with missing hemodialysis session. Patient presented with potassium 9 with EKG changes. Patient received calcium gluconate and insulin along with bicarb drip. patient is being dialyzed for one K bath for 1 hour and then 2K for the rest of treatment. Potassium is trending down. BMP after hemodialysis session. 3-gap metabolic acidosis with lactic acidosis. Should improve with hemodialysis. Patient is being dialyzed with bicarb 37. Check BMP after dialysis. 4-acute change in mental status. Multifactorial. This includes sepsis and missing hemodialysis session. Patient is being treated with antibiotics for pneumonia. Please dose cefepime for end-stage renal disease patient. 5-acute hypoxemic respiratory failure. Intubated. management as per the ICU team. 6-hyperglycemia. Patient is on insulin drip. Will defer the management to the ICU team I will continue to follow. Please do not hesitate to call me with any questions or concern Declan Tomas MD [phone]
[2017-06-21 13:39] LABS: Reflex Lactate? Y
--- NOTE | 2017-06-21 13:44 | DIALYSIS ---
Hemodialysis x 4 hours today. First hour of tx was with 1K+ bath and remainder was ran with a 2K+. Pt tolerated tx well. UF -1000mL. Report to ATUL Castelan
[2017-06-21] MEDS: Phytonadione (Vit K) 10 MG/ML Ampul SC (13:53)
[2017-06-21] MEDS: Venlafaxine HCl 75 MG Tablet NG ×2 (13:54→22:09)
[2017-06-21] MEDS: Famotidine 20 MG Tablet GT ×2 (13:55→22:11)
[2017-06-21] MEDS: Levothyroxine 50 MCG Tablet NG (13:55)
[2017-06-21] MEDS: Allopurinol 100 MG Tablet 200 MG NG (13:55)
[2017-06-21] MEDS: 0.9% NaCl Peripheral Flush Adult/Peds IV ×2 (13:59→14:00)
[2017-06-21] MEDS: Heparin Injection 5,000 UNITS/ML Syringe 5000 UNITS SC ×2 (14:21→22:10)
[2017-06-21 14:56] LABS: Bedside Glucose 75 mg/dL (70-110)
[2017-06-21 15:00] LABS: Bedside Glucose 92 mg/dL (70-110)
[2017-06-21 15:27] LABS: Pathologist Review Reviewed
[2017-06-21 15:35] LABS: GGTP 111 U/L (5-55)
[2017-06-21 15:43] LABS: T4 Free Direct 0.77 ng/dL (0.76-1.46)
[2017-06-21 16:06] LABS: Bedside Glucose 109 mg/dL (70-110)
[2017-06-21 16:36] LABS: Lactic Acid 2.3 mmol/L (0.4-2.0)
[2017-06-21 16:37] LABS: Anion Gap 9 (5-15); BUN 16 mg/dL (7-18); BUN/Creat Ratio 5.5 RATIO (10-20); Calcium,Total 7.8 mg/dL (8.5-10.1); Chloride 96 mmol/L (98-107); EST Glomerular Filtration Rate 19 mL/min (>60); Est Glom Filt Rate - Afr Amer 22 mL/min (>60); Estimated Creatinine Clearance 23.32 ml/min; Glucose 106 mg/dL (74-106); Potassium 4.4 mmol/L (3.5-5.1); Sodium Level 134 mmol/L (136-145)
[2017-06-21] MEDS: Calcium Acetate 667 MG Capsule NG (17:29)
[2017-06-21] MEDS: Propofol 10MG/Ml 1,000 MG/100 ML Bottle 2.559 MG CONT INF (17:32)
[2017-06-21 19:01] LABS: Bedside Glucose 154 mg/dL (70-110)
[2017-06-21 20:15] LABS: Bedside Glucose 164 mg/dL (70-110)
[2017-06-21 20:48] LABS: Magnesium 2.1 mg/dL (1.6-2.6); Phosphorus 4.7 mg/dL (2.5-4.9)
[2017-06-21 21:16] LABS: CPK Total, Creatine Kinase 28 U/L (26-192)
[2017-06-21 21:16] LABS: Anion Gap 11 (5-15); BUN 18 mg/dL (7-18); BUN/Creat Ratio 5.7 RATIO (10-20); Calcium,Total 7.8 mg/dL (8.5-10.1); Chloride 97 mmol/L (98-107); Creatinine, Serum 3.18 mg/dL (0.55-1.02); EST Glomerular Filtration Rate 17 mL/min (>60); Est Glom Filt Rate - Afr Amer 20 mL/min (>60); Estimated Creatinine Clearance 21.27 ml/min; Glucose 163 mg/dL (74-106); Phosphorus 4.3 mg/dL (2.5-4.9); Potassium 4.6 mmol/L (3.5-5.1); Sodium Level 134 mmol/L (136-145); Triglycerides 92 mg/dL
[2017-06-21] MEDS: Latanoprost 0.005% 1 Bottle 1 DRP EACH EYE (22:11)
[2017-06-21 22:46] LABS: Bedside Glucose 164 mg/dL (70-110)
[2017-06-22] VITALS (35 sets, daily range): BP systolic 135–164; BP diastolic 54–82; PULSE 65–86; RESP 12–20; TEMP 37.1–37.9; O2SAT 91–100
[2017-06-22] MEDS: 0.9% NaCl Peripheral Flush Adult/Peds IV ×2 (01:38→13:06)
[2017-06-22] MEDS: Propofol 10MG/Ml 1,000 MG/100 ML Bottle 2.559 MG CONT INF (01:38)
[2017-06-22 01:41] LABS: Bedside Glucose 141 mg/dL (70-110)
[2017-06-22] MEDS: Albuterol 2.5 MG/3 ML VIAL.NEB. INHALATION ×2 (02:52→06:58)
[2017-06-22] MEDS: CHLORHEXIDINE GLUC 2% CLOTH 1 EACH TOWELETTE TOPICAL (03:44)
--- NOTE | 2017-06-22 03:56 | NURSING ---
Left kendall I/O removed by this nurse 06/22/17, covered with 2x2 and tape. Karen Brock RN
[2017-06-22 04:55] LABS: International Normalized Ratio 1.6; Prothrombin Time (Protime)PT. 18.4 SECONDS (11.7-14.9)
--- NOTE | 2017-06-22 05:10 | PN_ITS ---
Subjective: The patient was seen and examined at the bedside this morning. Events from the last 24 hours have been reviewed. The patient is currently febrile. T-max has been 100.9?F. The patient is currently hemodynamically stable and tolerating CPAP with an FiO2 of 30%. She tolerated hemodialysis yesterday with 1 L of fluid removed. INR was noted be 1.6 this morning. Serum lactate has improved significantly. The patient continues to have elevated transaminases and alkaline phosphatase. GGT was checked yesterday and found to be elevated to 111. Ammonia was also increased to 59. Although TSH was increased to 13, free T4 level was normal. The patient did pass her spontaneous breathing trial this morning. She is currently alert and appropriately interactive. Objective: The patient's most recent lab work, culture data and imaging studies have all been personally reviewed. C. difficile and rapid influenza screens were both negative. Blood cultures are pending. Surface echocardiogram dated April 2017 revealed normal LV size and function with an ejection fraction of 50%. There was evidence of moderate pulmonary hypertension with a pulmonary artery systolic pressure estimated to be 64 mmHg. General: - - Remains intubated and mechanically ventilated. Currently tolerating CPAP without issue. HEENT: Atraumatic, PERRLA, Normocephalic Oral: Moist Mucosa, No Gingival or Mucosal Lesions/ Ulcerations, - - Endotracheal and OG tubes remain in place. Neck: Supple, No Nodes, Trachea Midline Lungs: No rhonchi, No wheeze, Diminished, Rales Cardiovascular: Regular rate, Regular Rhythm, Normal S1, Normal S2, Murmur Abdomen: Bowel Sounds Present, Soft, Non Tender Extremities: No clubbing, No cyanosis, No edema Skin: - - No significant change from previous. Musculoskeletal: No Tenderness to Palpation of Joints or Extremities, No Muscle Wasting Lymphatic: No Cervical, Supraclavicular, or Inguinal Adenopathy Neurological: - - No focal neurological deficits. Moves all extremities spontaneously. Alert and following commands appropriately. Vital Signs Temp Pulse Resp BP Pulse Ox 100.3 F H 69 16 151/63 H 98 06/22/17 04:00 06/22/17 04:00 06/22/17 04:00 06/22/17 04:00 06/22/17 04:00 Oxygen Delivery Method Mechanical Ventilator Weight: 188 lb 0.869 oz Body Mass Index (BMI) 29.4 Intake and Output for Last 24 Hours 06/20/17 06/21/17 06/22/17 23:59 23:59 23:59 Intake Total 561.2 / 561.2 346 / 346 Output Total 1000 / 1800 Balance -438.8 / -1238.8 321 / 321 Labs (Last 48 Hours) 06/21/17 06/21/17 06/21/17 08:06 09:19 09:20 WBC RBC Hgb Hct MCV MCH MCHC RDW RDW Differential Plt Count Neut % (Auto) Absolute Neuts (auto) Total Counted PT INR Specimen Type Sample Site pH Bicarbonate Actual POC Total CO2 Base Excess O2 Saturation O2 % ABG pCO2 ABG pO2 Iam Test Respiration Rate O2 Delivery Device Vent Mode Tidal Volume POC PEEP Blood Gas Notified Whom Blood Gas Notified Time Sodium 133 L Potassium 6.4 H* Chloride 98 Carbon Dioxide 18.0 L Anion Gap 17 H BUN 48 H Creatinine 6.78 H Estim Creat Clear Calc 10.35 Est GFR (MDRD) Af Amer 8 L Est GFR (MDRD) Non-Af 7 L BUN/Creatinine Ratio 7.1 L Glucose 484 H* Lactic Acid Calcium 10.0 Phosphorus 9.9 H* Magnesium 3.0 H Total Bilirubin GGT AST ALT Alkaline Phosphatase Ammonia Total Creatine Kinase Troponin I Total Protein Albumin Triglycerides TSH Free T4 MRSA (PCR) POC Glucose > 500 H* 479 H* 06/21/17 06/21/17 06/21/17 09:20 09:20 09:30 WBC RBC Hgb Hct MCV MCH MCHC RDW RDW Differential Plt Count Neut % (Auto) Absolute Neuts (auto) Total Counted PT INR Specimen Type Sample Site pH Bicarbonate Actual POC Total CO2 Base Excess O2 Saturation O2 % ABG pCO2 ABG pO2 Iam Test Respiration Rate O2 Delivery Device Vent Mode Tidal Volume POC PEEP Blood Gas Notified Whom Blood Gas Notified Time Sodium Potassium Chloride Carbon Dioxide Anion Gap BUN Creatinine Estim Creat Clear Calc Est GFR (MDRD) Af Amer Est GFR (MDRD) Non-Af BUN/Creatinine Ratio Glucose Lactic Acid 8.5 H* Calcium Phosphorus Magnesium Total Bilirubin GGT AST ALT Alkaline Phosphatase Ammonia Total Creatine Kinase Troponin I 0.02 Total Protein Albumin Triglycerides TSH 13.30 H Free T4 MRSA (PCR) POC Glucose 06/21/17 06/21/17 06/21/17 09:40 10:34 10:48 WBC RBC Hgb Hct MCV MCH MCHC RDW RDW Differential Plt Count Neut % (Auto) Absolute Neuts (auto) Total Counted PT INR Specimen Type ART Sample Site R Radial pH 7.34 L Bicarbonate Actual 26.4 H POC Total CO2 28 Base Excess 1 O2 Saturation 99 O2 % 60 ABG pCO2 49.2 H ABG pO2 153 H Iam Test POS Respiration Rate 16 O2 Delivery Device Vent Vent Mode A-C Tidal Volume 500 POC PEEP 5 Blood Gas Notified Whom ICU MD Blood Gas Notified Time 1049 Sodium Potassium Chloride Carbon Dioxide Anion Gap BUN Creatinine Estim Creat Clear Calc Est GFR (MDRD) Af Amer Est GFR (MDRD) Non-Af BUN/Creatinine Ratio Glucose Lactic Acid Calcium Phosphorus Magnesium Total Bilirubin GGT AST ALT Alkaline Phosphatase Ammonia Total Creatine Kinase Troponin I Total Protein Albumin Triglycerides TSH Free T4 MRSA (PCR) Negative POC Glucose 256 H 06/21/17 06/21/17 06/21/17 11:46 13:09 13:43 WBC RBC Hgb Hct MCV MCH MCHC RDW RDW Differential Plt Count Neut % (Auto) Absolute Neuts (auto) Total Counted PT INR Specimen Type Sample Site pH Bicarbonate Actual POC Total CO2 Base Excess O2 Saturation O2 % ABG pCO2 ABG pO2 Iam Test Respiration Rate O2 Delivery Device Vent Mode Tidal Volume POC PEEP Blood Gas Notified Whom Blood Gas Notified Time Sodium Potassium Chloride Carbon Dioxide Anion Gap BUN Creatinine Estim Creat Clear Calc Est GFR (MDRD) Af Amer Est GFR (MDRD) Non-Af BUN/Creatinine Ratio Glucose Lactic Acid Calcium Phosphorus Magnesium Total Bilirubin GGT AST ALT Alkaline Phosphatase Ammonia Total Creatine Kinase Troponin I Total Protein Albumin Triglycerides TSH Free T4 MRSA (PCR) POC Glucose 148 H 76 75 06/21/17 06/21/17 06/21/17 13:45 13:45 13:45 WBC RBC Hgb Hct MCV MCH MCHC RDW RDW Differential Plt Count Neut % (Auto) Absolute Neuts (auto) Total Counted PT INR Specimen Type Sample Site pH Bicarbonate Actual POC Total CO2 Base Excess O2 Saturation O2 % ABG pCO2 ABG pO2 Iam Test Respiration Rate O2 Delivery Device Vent Mode Tidal Volume POC PEEP Blood Gas Notified Whom Blood Gas Notified Time Sodium Potassium Chloride Carbon Dioxide Anion Gap BUN Creatinine Estim Creat Clear Calc Est GFR (MDRD) Af Amer Est GFR (MDRD) Non-Af BUN/Creatinine Ratio Glucose Lactic Acid Calcium Phosphorus Magnesium Total Bilirubin GGT AST ALT Alkaline Phosphatase Ammonia 59.0 H Total Creatine Kinase Troponin I 0.04 Total Protein Albumin Triglycerides TSH Free T4 0.77 MRSA (PCR) POC Glucose 06/21/17 06/21/17 06/21/17 13:45 14:53 15:40 WBC RBC Hgb Hct MCV MCH MCHC RDW RDW Differential Plt Count Neut % (Auto) Absolute Neuts (auto) Total Counted PT INR Specimen Type Sample Site pH Bicarbonate Actual POC Total CO2 Base Excess O2 Saturation O2 % ABG pCO2 ABG pO2 Iam Test Respiration Rate O2 Delivery Device Vent Mode Tidal Volume POC PEEP Blood Gas Notified Whom Blood Gas Notified Time Sodium Potassium Chloride Carbon Dioxide Anion Gap BUN Creatinine Estim Creat Clear Calc Est GFR (MDRD) Af Amer Est GFR (MDRD) Non-Af BUN/Creatinine Ratio Glucose Lactic Acid 2.3 H Calcium Phosphorus Magnesium Total Bilirubin GGT 111 H AST ALT Alkaline Phosphatase Ammonia Total Creatine Kinase Troponin I Total Protein Albumin Triglycerides TSH Free T4 MRSA (PCR) POC Glucose 92 06/21/17 06/21/17 06/21/17 15:45 15:45 15:48 WBC RBC Hgb Hct MCV MCH MCHC RDW RDW Differential Plt Count Neut % (Auto) Absolute Neuts (auto) Total Counted PT INR Specimen Type Sample Site pH Bicarbonate Actual POC Total CO2 Base Excess O2 Saturation O2 % ABG pCO2 ABG pO2 Iam Test Respiration Rate O2 Delivery Device Vent Mode Tidal Volume POC PEEP Blood Gas Notified Whom Blood Gas Notified Time Sodium 134 L Potassium 4.4 Chloride 96 L Carbon Dioxide 29.0 Anion Gap 9 BUN 16 Creatinine 2.90 H Estim Creat Clear Calc 23.32 Est GFR (MDRD) Af Amer 22 L Est GFR (MDRD) Non-Af 19 L BUN/Creatinine Ratio 5.5 L Glucose 106 Lactic Acid Calcium 7.8 L Phosphorus 4.7 Magnesium 2.1 Total Bilirubin GGT AST ALT Alkaline Phosphatase Ammonia Total Creatine Kinase Troponin I Total Protein Albumin Triglycerides TSH Free T4 MRSA (PCR) POC Glucose 109 06/21/17 06/21/17 06/21/17 17:32 19:25 20:20 WBC RBC Hgb Hct MCV MCH MCHC RDW RDW Differential Plt Count Neut % (Auto) Absolute Neuts (auto) Total Counted PT INR Specimen Type Sample Site pH Bicarbonate Actual POC Total CO2 Base Excess O2 Saturation O2 % ABG pCO2 ABG pO2 Iam Test Respiration Rate O2 Delivery Device Vent Mode Tidal Volume POC PEEP Blood Gas Notified Whom Blood Gas Notified Time Sodium Potassium Chloride Carbon Dioxide Anion Gap BUN Creatinine Estim Creat Clear Calc Est GFR (MDRD) Af Amer Est GFR (MDRD) Non-Af BUN/Creatinine Ratio Glucose Lactic Acid Calcium Phosphorus Magnesium Total Bilirubin GGT AST ALT Alkaline Phosphatase Ammonia Total Creatine Kinase 28 Troponin I Total Protein Albumin Triglycerides TSH Free T4 MRSA (PCR) POC Glucose 154 H 164 H 06/21/17 06/21/17 06/21/17 20:30 20:30 22:05 WBC RBC Hgb Hct MCV MCH MCHC RDW RDW Differential Plt Count Neut % (Auto) Absolute Neuts (auto) Total Counted PT INR Specimen Type Sample Site pH Bicarbonate Actual POC Total CO2 Base Excess O2 Saturation O2 % ABG pCO2 ABG pO2 Iam Test Respiration Rate O2 Delivery Device Vent Mode Tidal Volume POC PEEP Blood Gas Notified Whom Blood Gas Notified Time Sodium 134 L Potassium 4.6 Chloride 97 L Carbon Dioxide 26.0 Anion Gap 11 BUN 18 Creatinine 3.18 H Estim Creat Clear Calc 21.27 Est GFR (MDRD) Af Amer 20 L Est GFR (MDRD) Non-Af 17 L BUN/Creatinine Ratio 5.7 L Glucose 163 H Lactic Acid Calcium 7.8 L Phosphorus 4.3 Magnesium 2.0 Total Bilirubin GGT AST ALT Alkaline Phosphatase Ammonia Total Creatine Kinase Troponin I 0.07 H Total Protein Albumin Triglycerides 92 TSH Free T4 MRSA (PCR) POC Glucose 164 H 06/22/17 06/22/17 06/22/17 01:32 04:30 04:30 WBC Pending RBC Pending Hgb Pending Hct Pending MCV Pending MCH Pending MCHC Pending RDW Pending RDW Differential Pending Plt Count Pending Neut % (Auto) Pending Absolute Neuts (auto) Pending Total Counted Pending PT Pending INR Pending Specimen Type Sample Site pH Bicarbonate Actual POC Total CO2 Base Excess O2 Saturation O2 % ABG pCO2 ABG pO2 Iam Test Respiration Rate O2 Delivery Device Vent Mode Tidal Volume POC PEEP Blood Gas Notified Whom Blood Gas Notified Time Sodium Potassium Chloride Carbon Dioxide Anion Gap BUN Creatinine Estim Creat Clear Calc Est GFR (MDRD) Af Amer Est GFR (MDRD) Non-Af BUN/Creatinine Ratio Glucose Lactic Acid Calcium Phosphorus Magnesium Total Bilirubin GGT AST ALT Alkaline Phosphatase Ammonia Total Creatine Kinase Troponin I Total Protein Albumin Triglycerides TSH Free T4 MRSA (PCR) POC Glucose 141 H 06/22/17 04:30 WBC RBC Hgb Hct MCV MCH MCHC RDW RDW Differential Plt Count Neut % (Auto) Absolute Neuts (auto) Total Counted PT INR Specimen Type Sample Site pH Bicarbonate Actual POC Total CO2 Base Excess O2 Saturation O2 % ABG pCO2 ABG pO2 Iam Test Respiration Rate O2 Delivery Device Vent Mode Tidal Volume POC PEEP Blood Gas Notified Whom Blood Gas Notified Time Sodium Pending Potassium Pending Chloride Pending Carbon Dioxide Pending Anion Gap Pending BUN Pending Creatinine Pending Estim Creat Clear Calc Est GFR (MDRD) Af Amer Pending Est GFR (MDRD) Non-Af Pending BUN/Creatinine Ratio Pending Glucose Pending Lactic Acid Calcium Pending Phosphorus Magnesium Pending Total Bilirubin Pending GGT AST Pending ALT Pending Alkaline Phosphatase Pending Ammonia Total Creatine Kinase Troponin I Total Protein Pending Albumin Pending Triglycerides TSH Free T4 MRSA (PCR) POC Glucose Microbiology 06/21/17 21:25 Stool C. difficile DNA Amplification - Final Clinical Impression(s) from Imaging Studies Chest X-Ray 06/21/17 06:20 IMPRESSION: Stable bilateral patchy pneumonia. Electronically Signed: Jose Antonio Paredes MD at 7:23 EST Tel , Service support , Chest X-Ray 06/21/17 08:12 IMPRESSION: Progressive bilateral airspace disease worse in the right hemithorax. Follow-up is recommended. Electronically Signed: Thuan Benton MD at 8:58 EST Tel [phone], Service support , Assessment/Plan Active and Suspected Problems Hyperphosphatemia (Acute) Lactic acidosis (Acute) Abnormal LFTs (Acute) Metabolic acidosis (Acute) RECOMMENDATIONS: 1. Proceed with a trial of extubation this morning. Once extubated, wean supplemental oxygen to maintain saturations at or above 90%. 2. Following extubation, perform bedside swallow evaluation. 3. Patient continues to have low-grade fevers. MRSA screen was negative. Will continue broad antibiotics for now. 4. Continue subcutaneous heparin and Pepcid for prophylaxis 5. Continue Accu-Cheks and sliding scale insulin coverage 6. Ongoing hemodialysis per nephrology recommendations 7. Consider obtaining abdominal imaging, given elevated transaminases and GGT. IMPRESSIONS: 1. Acute hypoxemic and hypercarbic respiratory failure Concern for potential aspiration event in conjunction with #2 as likely inciting factors. She is a candidate for a trial of extubation this morning. Continue broad-spectrum antibiotics, pending infectious workup. Wean FiO2 to maintain oxygen saturations at or above 90%. Once extubated, encourage incentive spirometer use and mobilize patient as tolerated. 2. Encephalopathy likely metabolic in nature Improved. The patient did reportedly missed a dialysis session this week. In addition, she has a known history of hypothyroidism. Although TSH was elevated , free T4 level is within normal limits. 3. Severe sepsis As above, concern for aspiration event. Antibiotics will be continued. The patient has been adequately volume resuscitated. 4. End-stage renal disease on hemodialysis/hyperkalemia Ongoing hemodialysis per nephrology recommendations. 5. Severe hyperglycemia/uncontrolled type 1 diabetes mellitus Continue basal insulin and sliding scale coverage. 6. Anion gap metabolic acidosis secondary to lactic acidemia Resolved following hemodialysis and stabilization of the patient's hemodynamics. 7. Anemia/hypertension/hyperlipidemia/recurrent C. difficile colitis/ hypothyroidism Complicates care, management, recovery and prognosis. Continue home Synthroid regimen. Will ask nutrition for tube feed recommendations. TIME: 40 minutes of critical care time, independent of procedures, was spent addressing the patient's acute respiratory failure, metabolic encephalopathy, severe sepsis, hyperkalemia due to end-stage renal disease, severe hyperglycemia , anion gap metabolic acidosis, hyponatremia, review of all data and collaboration with the care team. ([id number]) Code Visit [id number]: [id number] Critical care first hour
[2017-06-22 05:11] LABS: ALB/GLOB Ratio 0.5 RATIO (0.9-2.4); AST(SGOT) 486 U/L (15-37); Alanine Aminotransfer ALT/SGPT 162 U/L (13-56); Alkaline Phosphatase 613 U/L (45-117); Anion Gap 9 (5-15); BUN 18 mg/dL (7-18); BUN/Creat Ratio 5.2 RATIO (10-20); Calcium,Total 7.7 mg/dL (8.5-10.1); Chloride 96 mmol/L (98-107); Creatinine, Serum 3.46 mg/dL (0.55-1.02); EST Glomerular Filtration Rate 15 mL/min (>60); Est Glom Filt Rate - Afr Amer 18 mL/min (>60); Estimated Creatinine Clearance 19.55 ml/min; Globulin 3.7 g/dL (2.2-4.2); Glucose 82 mg/dL (74-106); Protein, Total 5.7 g/dL (6.4-8.2); Sodium Level 133 mmol/L (136-145)
[2017-06-22 05:31] LABS: Absolute Lymphocyte Count 1.45 X10^3/ul (0.83-4.51); Basophil# 0.02 X10^3/uL; Basophil% 0.2 % (0-1); Eosinophils% 3.7 % (0-5); Hematocrit 25.4 % (37-47); Lymphocyte # 1.45 X10^3/ul (4.0); Lymphocyte % 17.7 % (19-41); Mean Corp Hgb Conc 31.5 g/gl (32-36); Mean Corpuscular Hgb 30.8 pg (27.0-32.0); Mean Corpuscular Volume 97.7 fL (81-99); Mean Platelet Vol. 11.6 fl (6.2-12.0); Monocyte# 0.44 X10^3/uL; Monocyte% 5.4 % (0-10); Neutrophil # 5.96 X10^3/uL (2.7-7.7); Neutrophil % 72.6 % (47-70); Platelet Count 107 K/mm3 (150-450); RBC Distribution Width CV 20.7 % (11.6-14.6); RBC Distribution Width SD 72.6 fl (35.1-43.9); White Blood Count 8.2 K/mm3 (4.4-11.0)
[2017-06-22 05:32] LABS: Differential Indicated SCAN CRITERIA MET; POSITIVE COUNT NO; POSITIVE DIFFERENTIAL NO; POSITIVE MORPHOLOGY YES
[2017-06-22 05:35] LABS: Anisocytosis 2+; Hypochromasia 1+
[2017-06-22 05:36] LABS: Macrocytosis 1+; Microcytosis 1+; Polychromasia RARE
[2017-06-22 05:38] LABS: Tear Drop Cell RARE
[2017-06-22] MEDS: Heparin Injection 5,000 UNITS/ML Syringe 5000 UNITS SC ×3 (06:09→21:21)
[2017-06-22] MEDS: Levothyroxine 50 MCG Tablet NG (06:09)
[2017-06-22 06:31] LABS: Bedside Glucose 81 mg/dL (70-110)
--- NOTE | 2017-06-22 07:35 | PN_ITS ---
Patient Problems: Active and Suspected Problems Hyperphosphatemia (Acute) Lactic acidosis (Acute) Abnormal LFTs (Acute) Metabolic acidosis (Acute) Subjective: Day #2 cefepime and Flagyl Admitted to the intensive care unit on 06/20/2017 with acute combined respiratory failure and marked electrolyte abnormalities secondary to noncompliance with diet and with follow-up in the dialysis unit. She was intubated and placed on mechanical ventilation in the emergency room. She was started on antibiotics for suspected aspiration. She underwent hemodialysis. T-max is 100.9?F. Current temp is 100.2. She was extubated this morning and is currently 99% on a 2 L nasal cannula. Fluid balance since admission is -671. White blood cell count is 8.2 with 73% neutrophils. Hemoglobin is 8.0 and the platelet count is 107,000. PT remains prolonged at 18.4 despite vitamin K on 06/20/2017. Potassium today is 4.0 with a serum sodium of 133. BUN is 18 with a creatinine of 3.46. Free T4 was within normal limits and TSH was increased. I suspect she is not taking her medications appropriately. AST is 486 today and the ALT is 162. Alkaline phosphatase is up to 613 and bilirubin is within normal limits. She has had cholecystectomy in the past. Blood sugars are well controlled and the continuous insulin infusion has been discontinued. She is now on a q. 4 hour sliding scale. She is alert and appropriate today. Recognizes me from her last admission. Wants to go home already. Stressed to her that we know to do a lot of education with her so this does not happen again. - Physical Exam General: Alert, Oriented x3, Cooperative, No apparent distress, Well developed, Well nourished HEENT: Atraumatic, PERRLA, EOMI Oral: Dry Mucosa Neck: Supple, Trachea Midline Lungs: Clear to auscultation Cardiovascular: Regular rate, Regular Rhythm, Normal S1, Normal S2, No murmurs, No rub noted, No Gallop Abdomen: Bowel Sounds Present, Soft, Non Tender, Non-Distended Extremities: No clubbing, No cyanosis, No edema Skin: No rashes, No breakdown Neurological: Cranial nerves II-XII grossly intact, Neuro grossly intact Psych/Mental Status: Normal Affect, Appropriate Vital Signs Temp Pulse Resp BP Pulse Ox 100.2 F H 81 14 146/63 H 99 06/22/17 05:42 02/03/18 06:59 06/22/17 06:59 06/22/17 05:42 06/22/17 06:59 Oxygen Flow Rate 2 Oxygen Delivery Method Nasal Cannula Weight: 188 lb 14.978 oz Body Mass Index (BMI) 29.4 Intake and Output for Last 24 Hours 06/20/17 06/21/17 06/22/17 23:59 23:59 23:59 Intake Total 561.2 / 561.2 613 / 613 Output Total 1000 / 1800 45 / 45 Balance -438.8 / -1238.8 568 / 568 Microbiology Past 72 Hours 06/21/17 21:25 C. difficile DNA Amplification - Final Stool Laboratory Tests Past 24 Hrs 06/21/17 06/21/17 06/21/17 09:20 09:20 09:20 WBC RBC Hgb Hct MCV MCH MCHC RDW RDW Differential Plt Count MPV Immature Gran % (Auto) Neut % (Auto) Lymph % (Auto) Hubbard % (Auto) Eos % (Auto) Baso % (Auto) Absolute Neuts (auto) Absolute Lymphs (auto) Total Counted Polychromasia Hypochromasia Anisocytosis Microcytosis Macrocytosis Tear Drop Cells PT INR Specimen Type Sample Site pH Bicarbonate Actual POC Total CO2 Base Excess O2 Saturation O2 % ABG pCO2 ABG pO2 Iam Test Respiration Rate O2 Delivery Device Vent Mode Tidal Volume POC PEEP Blood Gas Notified Whom Blood Gas Notified Time Sodium 133 L Potassium 6.4 H* Chloride 98 Carbon Dioxide 18.0 L Anion Gap 17 H BUN 48 H Creatinine 6.78 H Estim Creat Clear Calc 10.35 Est GFR (MDRD) Af Amer 8 L Est GFR (MDRD) Non-Af 7 L BUN/Creatinine Ratio 7.1 L Glucose 484 H* Lactic Acid Calcium 10.0 Phosphorus 9.9 H* Magnesium 3.0 H Total Bilirubin GGT AST ALT Alkaline Phosphatase Ammonia Total Creatine Kinase Troponin I 0.02 Total Protein Albumin Globulin Albumin/Globulin Ratio Triglycerides TSH 13.30 H Free T4 MRSA (PCR) 06/21/17 06/21/17 06/21/17 09:30 09:40 10:48 WBC RBC Hgb Hct MCV MCH MCHC RDW RDW Differential Plt Count MPV Immature Gran % (Auto) Neut % (Auto) Lymph % (Auto) Hubbard % (Auto) Eos % (Auto) Baso % (Auto) Absolute Neuts (auto) Absolute Lymphs (auto) Total Counted Polychromasia Hypochromasia Anisocytosis Microcytosis Macrocytosis Tear Drop Cells PT INR Specimen Type ART Sample Site R Radial pH 7.34 L Bicarbonate Actual 26.4 H POC Total CO2 28 Base Excess 1 O2 Saturation 99 O2 % 60 ABG pCO2 49.2 H ABG pO2 153 H Iam Test POS Respiration Rate 16 O2 Delivery Device Vent Vent Mode A-C Tidal Volume 500 POC PEEP 5 Blood Gas Notified Whom ICU MD Blood Gas Notified Time 1049 Sodium Potassium Chloride Carbon Dioxide Anion Gap BUN Creatinine Estim Creat Clear Calc Est GFR (MDRD) Af Amer Est GFR (MDRD) Non-Af BUN/Creatinine Ratio Glucose Lactic Acid 8.5 H* Calcium Phosphorus Magnesium Total Bilirubin GGT AST ALT Alkaline Phosphatase Ammonia Total Creatine Kinase Troponin I Total Protein Albumin Globulin Albumin/Globulin Ratio Triglycerides TSH Free T4 MRSA (PCR) Negative 06/21/17 06/21/17 06/21/17 13:45 13:45 13:45 WBC RBC Hgb Hct MCV MCH MCHC RDW RDW Differential Plt Count MPV Immature Gran % (Auto) Neut % (Auto) Lymph % (Auto) Hubbard % (Auto) Eos % (Auto) Baso % (Auto) Absolute Neuts (auto) Absolute Lymphs (auto) Total Counted Polychromasia Hypochromasia Anisocytosis Microcytosis Macrocytosis Tear Drop Cells PT INR Specimen Type Sample Site pH Bicarbonate Actual POC Total CO2 Base Excess O2 Saturation O2 % ABG pCO2 ABG pO2 Iam Test Respiration Rate O2 Delivery Device Vent Mode Tidal Volume POC PEEP Blood Gas Notified Whom Blood Gas Notified Time Sodium Potassium Chloride Carbon Dioxide Anion Gap BUN Creatinine Estim Creat Clear Calc Est GFR (MDRD) Af Amer Est GFR (MDRD) Non-Af BUN/Creatinine Ratio Glucose Lactic Acid Calcium Phosphorus Magnesium Total Bilirubin GGT AST ALT Alkaline Phosphatase Ammonia 59.0 H Total Creatine Kinase Troponin I 0.04 Total Protein Albumin Globulin Albumin/Globulin Ratio Triglycerides TSH Free T4 0.77 MRSA (PCR) 06/21/17 06/21/17 06/21/17 13:45 15:40 15:45 WBC RBC Hgb Hct MCV MCH MCHC RDW RDW Differential Plt Count MPV Immature Gran % (Auto) Neut % (Auto) Lymph % (Auto) Hubbard % (Auto) Eos % (Auto) Baso % (Auto) Absolute Neuts (auto) Absolute Lymphs (auto) Total Counted Polychromasia Hypochromasia Anisocytosis Microcytosis Macrocytosis Tear Drop Cells PT INR Specimen Type Sample Site pH Bicarbonate Actual POC Total CO2 Base Excess O2 Saturation O2 % ABG pCO2 ABG pO2 Iam Test Respiration Rate O2 Delivery Device Vent Mode Tidal Volume POC PEEP Blood Gas Notified Whom Blood Gas Notified Time Sodium Potassium Chloride Carbon Dioxide Anion Gap BUN Creatinine Estim Creat Clear Calc Est GFR (MDRD) Af Amer Est GFR (MDRD) Non-Af BUN/Creatinine Ratio Glucose Lactic Acid 2.3 H Calcium Phosphorus 4.7 Magnesium 2.1 Total Bilirubin GGT 111 H AST ALT Alkaline Phosphatase Ammonia Total Creatine Kinase Troponin I Total Protein Albumin Globulin Albumin/Globulin Ratio Triglycerides TSH Free T4 MRSA (PCR) 06/21/17 06/21/17 06/21/17 15:45 20:20 20:30 WBC RBC Hgb Hct MCV MCH MCHC RDW RDW Differential Plt Count MPV Immature Gran % (Auto) Neut % (Auto) Lymph % (Auto) Hubbard % (Auto) Eos % (Auto) Baso % (Auto) Absolute Neuts (auto) Absolute Lymphs (auto) Total Counted Polychromasia Hypochromasia Anisocytosis Microcytosis Macrocytosis Tear Drop Cells PT INR Specimen Type Sample Site pH Bicarbonate Actual POC Total CO2 Base Excess O2 Saturation O2 % ABG pCO2 ABG pO2 Iam Test Respiration Rate O2 Delivery Device Vent Mode Tidal Volume POC PEEP Blood Gas Notified Whom Blood Gas Notified Time Sodium 134 L 134 L Potassium 4.4 4.6 Chloride 96 L 97 L Carbon Dioxide 29.0 26.0 Anion Gap 9 11 BUN 16 18 Creatinine 2.90 H 3.18 H Estim Creat Clear Calc 23.32 21.27 Est GFR (MDRD) Af Amer 22 L 20 L Est GFR (MDRD) Non-Af 19 L 17 L BUN/Creatinine Ratio 5.5 L 5.7 L Glucose 106 163 H Lactic Acid Calcium 7.8 L 7.8 L Phosphorus 4.3 Magnesium 2.0 Total Bilirubin GGT AST ALT Alkaline Phosphatase Ammonia Total Creatine Kinase 28 Troponin I Total Protein Albumin Globulin Albumin/Globulin Ratio Triglycerides 92 TSH Free T4 MRSA (PCR) 06/21/17 06/22/17 06/22/17 20:30 04:30 04:30 WBC 8.2 RBC 2.60 L Hgb 8.0 L Hct 25.4 L MCV 97.7 MCH 30.8 MCHC 31.5 L RDW 20.7 H RDW Differential 72.6 H Plt Count 107 L MPV 11.6 Immature Gran % (Auto) 0.400 Neut % (Auto) 72.6 H Lymph % (Auto) 17.7 L Hubbard % (Auto) 5.4 Eos % (Auto) 3.7 Baso % (Auto) 0.2 Absolute Neuts (auto) 6.0 Absolute Lymphs (auto) 1.45 Total Counted Not Reportable Polychromasia RARE Hypochromasia 1+ Anisocytosis 2+ Microcytosis 1+ Macrocytosis 1+ Tear Drop Cells RARE PT 18.4 H INR 1.6 Specimen Type Sample Site pH Bicarbonate Actual POC Total CO2 Base Excess O2 Saturation O2 % ABG pCO2 ABG pO2 Iam Test Respiration Rate O2 Delivery Device Vent Mode Tidal Volume POC PEEP Blood Gas Notified Whom Blood Gas Notified Time Sodium Potassium Chloride Carbon Dioxide Anion Gap BUN Creatinine Estim Creat Clear Calc Est GFR (MDRD) Af Amer Est GFR (MDRD) Non-Af BUN/Creatinine Ratio Glucose Lactic Acid Calcium Phosphorus Magnesium Total Bilirubin GGT AST ALT Alkaline Phosphatase Ammonia Total Creatine Kinase Troponin I 0.07 H Total Protein Albumin Globulin Albumin/Globulin Ratio Triglycerides TSH Free T4 MRSA (PCR) 06/22/17 04:30 WBC RBC Hgb Hct MCV MCH MCHC RDW RDW Differential Plt Count MPV Immature Gran % (Auto) Neut % (Auto) Lymph % (Auto) Hubbard % (Auto) Eos % (Auto) Baso % (Auto) Absolute Neuts (auto) Absolute Lymphs (auto) Total Counted Polychromasia Hypochromasia Anisocytosis Microcytosis Macrocytosis Tear Drop Cells PT INR Specimen Type Sample Site pH Bicarbonate Actual POC Total CO2 Base Excess O2 Saturation O2 % ABG pCO2 ABG pO2 Iam Test Respiration Rate O2 Delivery Device Vent Mode Tidal Volume POC PEEP Blood Gas Notified Whom Blood Gas Notified Time Sodium 133 L Potassium 4.0 Chloride 96 L Carbon Dioxide 28.0 Anion Gap 9 BUN 18 Creatinine 3.46 H Estim Creat Clear Calc 19.55 Est GFR (MDRD) Af Amer 18 L Est GFR (MDRD) Non-Af 15 L BUN/Creatinine Ratio 5.2 L Glucose 82 Lactic Acid Calcium 7.7 L Phosphorus Magnesium 2.0 Total Bilirubin 0.90 GGT AST 486 H ALT 162 H Alkaline Phosphatase 613 H Ammonia Total Creatine Kinase Troponin I Total Protein 5.7 L Albumin 2.0 L Globulin 3.7 Albumin/Globulin Ratio 0.5 L Triglycerides TSH Free T4 MRSA (PCR) POC Glucose 06/22/17 06/22/17 06/21/17 06:18 01:32 22:05 POC Glucose 81 141 H 164 H 06/21/17 06/21/17 06/21/17 19:25 17:32 15:48 POC Glucose 164 H 154 H 109 06/21/17 06/21/17 06/21/17 14:53 13:43 13:09 POC Glucose 92 75 76 06/21/17 06/21/17 06/21/17 11:46 10:34 09:19 POC Glucose 148 H 256 H 479 H* 06/21/17 08:06 POC Glucose > 500 H* Assessment/Plan Active and Suspected Problems Hyperphosphatemia (Acute) Lactic acidosis (Acute) Abnormal LFTs (Acute) Metabolic acidosis (Acute) Impressions 1. acute respiratory failure with hypoxemia and borderline hypercarbia 2. severe sepsis - possible aspiration 3. severe lactic acidosis 4. hyperkalemia 5. Hyperphosphatemia 6. DM I with uncontrolled blood sugars 7. ESRD on HD 8. metabolic encephalopathy 9. anemia of CRF 10. hx HTN 11. HLD 12. hx of recurrent episodes of C DIFF 13. Abnormal LFTs - etiology Continue cefepime and await the results of the sputum culture Extubated this a.m. No dialysis scheduled for today, will likely resume her regular dialysis schedule of Saturday If she passes her swallowing evaluation will start a diet. Continue to monitor blood sugars and adjust insulin as needed CT scan of the abd and pelvis with oral contrast only to better evaluate the liver - it is odd that the GGTP is unremarkable? Recheck CMP in the AM and a PT/INR Could she have R heart failure? Pulmonary HTN? Discussed on rounds with Dr. Small If the BS's remain stable and she passes the swallowing eval will DC to PCU this evening or in the AM Code Visit Inpatient E&M: [id number] [facility] Hosp L3
[2017-06-22 08:12] LABS: Phosphorus 4.1 mg/dL (2.5-4.9)
--- NOTE | 2017-06-22 09:42 | CASEMGMT ---
Readmit Note: DC'd on 06/03/17 after tx fpr DKA, resp failure. Pt was going to SNF, then changed mind and was dc'd home. Presently continuing dialysis @ [facility] MWF 1st shift. Call to [facility] notified of admission to hospital. Pt states she was using walker at home, but was independent in ADL. Pharm: MARJAN Arriola. was in room- voiced concerns that pt drives herself to dialysis [facility] while he works. Recommended pt and contact [facility] social media assistant for information on transportation assistance. Will continue to follow and assist with dc planning. Keiko HOPEN RN ACM
[2017-06-22] MEDS: Venlafaxine HCl 75 MG Tablet NG (10:24)
[2017-06-22] MEDS: Metoprolol Tartrate 25 MG Tablet NG (10:24)
[2017-06-22] MEDS: Allopurinol 100 MG Tablet 200 MG NG (10:24)
[2017-06-22] MEDS: Calcium Acetate 667 MG Capsule NG ×3 (10:24→18:05)
[2017-06-22] MEDS: Famotidine 20 MG Tablet GT (10:25)
[2017-06-22 10:31] LABS: Bedside Glucose 135 mg/dL (70-110)
[2017-06-22 16:31] LABS: Bedside Glucose 188 mg/dL (70-110)
--- NOTE | 2017-06-22 16:41 | CT_ITS ---
STUDY: CT ABDOMEN AND PELVIS WITHOUT CONTRAST REASON FOR EXAM: Female, 47 years old. Abnormal LFTs RADIATION DOSAGE (If Supplied By Facility): CTDIvol = ( ) mGy, DLP = ( 832.38 ) mGycm TECHNIQUE: Transaxial images were obtained from the dome of the diaphragm to the symphysis pubis with oral contrast, and without intravenous contrast. Sagittal and coronal images were reconstructed. Individualized dose optimization techniques were used for this CT. COMPARISON: Previous study of October 28, 2016 FINDINGS: There is right lower lobe and right middle lobe atelectasis. There is a pleural-based focus of consolidation of the right lower lobe measuring 3.9 x 2.8 cm. There is a small right-sided effusion. Cardiomegaly is present. There is no pericardial effusion. Normal liver. There are surgical clips in the gallbladder fossa consistent with a prior cholecystectomy. There is mild splenomegaly. Normal pancreas. Normal bilateral adrenal glands. Bilateral renal vascular calcifications are present. Normal visualized stomach. Normal small intestine. There is diffuse colonic wall thickening. There is non-visualization of the appendix. There are calcified plaques of the abdominal aorta and iliac arteries. Normal inferior vena cava. There are numerous scattered retroperitoneal/periaortic nodes measuring up to 1.1 cm in short axis. A Gresham catheter is present within a decompressed urinary bladder. There is absence of the uterus consistent with a prior hysterectomy. There is diffuse subcutaneous edema consistent with anasarca. There are severe degenerative changes with disc space narrowing and reactive sclerosis of the endplates at the L5-S1 level. CT/Abdomen/Pel W ORAL Cont Only IMPRESSION: 1. Right middle and lower lobe atelectasis. Pleural-based consolidation of the right lower lobe measuring 3.9 x 2.8 cm. 2. Small right-sided pleural effusion. 3. Cardiomegaly. 4. Status post cholecystectomy and hysterectomy. 5. Mild splenomegaly. 6. There is diffuse colonic wall thickening which may represent colitis. 7. Retroperitoneal/periaortic adenopathy. 8. Gresham catheter present within a decompressed urinary bladder. 9. Diffuse subcutaneous edema consistent with anasarca. Electronically Signed: Wilfredo Srinivasan MD at 21:38 EST , Service support ,
--- NOTE | 2017-06-22 20:45 | NURSING ---
Pt leaving floor with this RN to CT
--- NOTE | 2017-06-22 21:10 | NURSING ---
Pt returning to floor with this RN from CT
[2017-06-22] MEDS: Venlafaxine HCl 75 MG Tablet PO (21:21)
[2017-06-22] MEDS: Metoprolol Tartrate 25 MG Tablet PO (21:21)
[2017-06-22] MEDS: Latanoprost 0.005% 1 Bottle 1 DRP EACH EYE (21:22)
[2017-06-22] MEDS: SEVELAMER CARBONATE 800 MG TABLET PO (21:22)
[2017-06-22] MEDS: Famotidine 20 MG Tablet PO (21:22)
[2017-06-22 21:56] LABS: Bedside Glucose 181 mg/dL (70-110)
[2017-06-23] VITALS (20 sets, daily range): BP systolic 132–162; BP diastolic 58–72; PULSE 61–80; RESP 12–18; TEMP 36.4–37.1; O2SAT 91–99
--- NOTE | 2017-06-23 05:07 | PN_ITS ---
Subjective: The patient was seen and examined at the bedside this morning. Events from the last 24 hours have been reviewed. The patient is currently afebrile, hemodynamically stable and maintaining appropriate oxygen saturations on 1 L/ min via nasal cannula. She has done remarkably well following extubation yesterday. She denies the presence of shortness of breath. She has been tolerant of a diet thus far. She is in good spirits this morning. Objective: The patient's most recent lab work, culture data and imaging studies have all been personally reviewed. C. difficile and rapid influenza screens were both negative. Blood cultures are pending. Surface echocardiogram dated April 2017 revealed normal LV size and function with an ejection fraction of 50%. There was evidence of moderate pulmonary hypertension with a pulmonary artery systolic pressure estimated to be [address] abdomen obtained yesterday revealed evidence of a pleural-based consolidation in the right lower lobe. There was an associated small pleural effusion. General: Alert, Oriented x3, Cooperative, No apparent distress HEENT: Atraumatic, PERRLA, Normocephalic Oral: Moist Mucosa, No Gingival or Mucosal Lesions/ Ulcerations Neck: Supple, No Nodes, Trachea Midline Lungs: No rhonchi, No wheeze, Diminished, Rales Cardiovascular: Regular rate, Regular Rhythm, Normal S1, Normal S2, No murmurs, No rub noted, No Gallop Abdomen: Bowel Sounds Present, Soft, Non Tender, Non-Distended Extremities: No clubbing, No cyanosis, No edema, - - Left upper extremity fistula in place Skin: - - No significant change from previous Musculoskeletal: No Tenderness to Palpation of Joints or Extremities Lymphatic: No Cervical, Supraclavicular, or Inguinal Adenopathy Neurological: Neuro grossly intact Psych/Mental Status: Normal Affect, Appropriate Vital Signs Temp Pulse Resp BP Pulse Ox 98.8 F 68 18 143/63 H 97 06/23/17 04:00 06/23/17 04:00 06/23/17 04:00 06/23/17 04:00 06/23/17 04:00 Oxygen Flow Rate 2 Oxygen Delivery Method Nasal Cannula Weight: 188 lb 14.978 oz Body Mass Index (BMI) 29.4 Intake and Output for Last 24 Hours 06/21/17 06/22/17 06/23/17 23:59 23:59 23:59 Intake Total 561.2 / 561.2 1666 / 1666 Output Total 1000 / 1800 105 / 105 Balance -438.8 / -1238.8 1561 / 1561 Labs (Last 48 Hours) 06/21/17 06/21/17 06/21/17 08:06 09:19 09:20 WBC RBC Hgb Hct MCV MCH MCHC RDW RDW Differential Plt Count MPV Immature Gran % (Auto) Neut % (Auto) Lymph % (Auto) Cameron % (Auto) Eos % (Auto) Baso % (Auto) Absolute Neuts (auto) Absolute Lymphs (auto) Total Counted Polychromasia Hypochromasia Anisocytosis Microcytosis Macrocytosis Tear Drop Cells PT INR Specimen Type Sample Site pH Bicarbonate Actual POC Total CO2 Base Excess O2 Saturation O2 % ABG pCO2 ABG pO2 Iam Test Respiration Rate O2 Delivery Device Vent Mode Tidal Volume POC PEEP Blood Gas Notified Whom Blood Gas Notified Time Sodium 133 L Potassium 6.4 H* Chloride 98 Carbon Dioxide 18.0 L Anion Gap 17 H BUN 48 H Creatinine 6.78 H Estim Creat Clear Calc 10.35 Est GFR (MDRD) Af Amer 8 L Est GFR (MDRD) Non-Af 7 L BUN/Creatinine Ratio 7.1 L Glucose 484 H* Lactic Acid Calcium 10.0 Phosphorus 9.9 H* Magnesium 3.0 H Total Bilirubin GGT AST ALT Alkaline Phosphatase Ammonia Total Creatine Kinase Troponin I Total Protein Albumin Globulin Albumin/Globulin Ratio Triglycerides TSH Free T4 MRSA (PCR) POC Glucose > 500 H* 479 H* 06/21/17 06/21/17 06/21/17 09:20 09:20 09:30 WBC RBC Hgb Hct MCV MCH MCHC RDW RDW Differential Plt Count MPV Immature Gran % (Auto) Neut % (Auto) Lymph % (Auto) Cameron % (Auto) Eos % (Auto) Baso % (Auto) Absolute Neuts (auto) Absolute Lymphs (auto) Total Counted Polychromasia Hypochromasia Anisocytosis Microcytosis Macrocytosis Tear Drop Cells PT INR Specimen Type Sample Site pH Bicarbonate Actual POC Total CO2 Base Excess O2 Saturation O2 % ABG pCO2 ABG pO2 Iam Test Respiration Rate O2 Delivery Device Vent Mode Tidal Volume POC PEEP Blood Gas Notified Whom Blood Gas Notified Time Sodium Potassium Chloride Carbon Dioxide Anion Gap BUN Creatinine Estim Creat Clear Calc Est GFR (MDRD) Af Amer Est GFR (MDRD) Non-Af BUN/Creatinine Ratio Glucose Lactic Acid 8.5 H* Calcium Phosphorus Magnesium Total Bilirubin GGT AST ALT Alkaline Phosphatase Ammonia Total Creatine Kinase Troponin I 0.02 Total Protein Albumin Globulin Albumin/Globulin Ratio Triglycerides TSH 13.30 H Free T4 MRSA (PCR) POC Glucose 06/21/17 06/21/17 06/21/17 09:40 10:34 10:48 WBC RBC Hgb Hct MCV MCH MCHC RDW RDW Differential Plt Count MPV Immature Gran % (Auto) Neut % (Auto) Lymph % (Auto) Cameron % (Auto) Eos % (Auto) Baso % (Auto) Absolute Neuts (auto) Absolute Lymphs (auto) Total Counted Polychromasia Hypochromasia Anisocytosis Microcytosis Macrocytosis Tear Drop Cells PT INR Specimen Type ART Sample Site R Radial pH 7.34 L Bicarbonate Actual 26.4 H POC Total CO2 28 Base Excess 1 O2 Saturation 99 O2 % 60 ABG pCO2 49.2 H ABG pO2 153 H Iam Test POS Respiration Rate 16 O2 Delivery Device Vent Vent Mode A-C Tidal Volume 500 POC PEEP 5 Blood Gas Notified Whom ICU MD Blood Gas Notified Time 1049 Sodium Potassium Chloride Carbon Dioxide Anion Gap BUN Creatinine Estim Creat Clear Calc Est GFR (MDRD) Af Amer Est GFR (MDRD) Non-Af BUN/Creatinine Ratio Glucose Lactic Acid Calcium Phosphorus Magnesium Total Bilirubin GGT AST ALT Alkaline Phosphatase Ammonia Total Creatine Kinase Troponin I Total Protein Albumin Globulin Albumin/Globulin Ratio Triglycerides TSH Free T4 MRSA (PCR) Negative POC Glucose 256 H 06/21/17 06/21/17 06/21/17 11:46 13:09 13:43 WBC RBC Hgb Hct MCV MCH MCHC RDW RDW Differential Plt Count MPV Immature Gran % (Auto) Neut % (Auto) Lymph % (Auto) Cameron % (Auto) Eos % (Auto) Baso % (Auto) Absolute Neuts (auto) Absolute Lymphs (auto) Total Counted Polychromasia Hypochromasia Anisocytosis Microcytosis Macrocytosis Tear Drop Cells PT INR Specimen Type Sample Site pH Bicarbonate Actual POC Total CO2 Base Excess O2 Saturation O2 % ABG pCO2 ABG pO2 Iam Test Respiration Rate O2 Delivery Device Vent Mode Tidal Volume POC PEEP Blood Gas Notified Whom Blood Gas Notified Time Sodium Potassium Chloride Carbon Dioxide Anion Gap BUN Creatinine Estim Creat Clear Calc Est GFR (MDRD) Af Amer Est GFR (MDRD) Non-Af BUN/Creatinine Ratio Glucose Lactic Acid Calcium Phosphorus Magnesium Total Bilirubin GGT AST ALT Alkaline Phosphatase Ammonia Total Creatine Kinase Troponin I Total Protein Albumin Globulin Albumin/Globulin Ratio Triglycerides TSH Free T4 MRSA (PCR) POC Glucose 148 H 76 75 06/21/17 06/21/17 06/21/17 13:45 13:45 13:45 WBC RBC Hgb Hct MCV MCH MCHC RDW RDW Differential Plt Count MPV Immature Gran % (Auto) Neut % (Auto) Lymph % (Auto) Cameron % (Auto) Eos % (Auto) Baso % (Auto) Absolute Neuts (auto) Absolute Lymphs (auto) Total Counted Polychromasia Hypochromasia Anisocytosis Microcytosis Macrocytosis Tear Drop Cells PT INR Specimen Type Sample Site pH Bicarbonate Actual POC Total CO2 Base Excess O2 Saturation O2 % ABG pCO2 ABG pO2 Iam Test Respiration Rate O2 Delivery Device Vent Mode Tidal Volume POC PEEP Blood Gas Notified Whom Blood Gas Notified Time Sodium Potassium Chloride Carbon Dioxide Anion Gap BUN Creatinine Estim Creat Clear Calc Est GFR (MDRD) Af Amer Est GFR (MDRD) Non-Af BUN/Creatinine Ratio Glucose Lactic Acid Calcium Phosphorus Magnesium Total Bilirubin GGT AST ALT Alkaline Phosphatase Ammonia 59.0 H Total Creatine Kinase Troponin I 0.04 Total Protein Albumin Globulin Albumin/Globulin Ratio Triglycerides TSH Free T4 0.77 MRSA (PCR) POC Glucose 06/21/17 06/21/17 06/21/17 13:45 14:53 15:40 WBC RBC Hgb Hct MCV MCH MCHC RDW RDW Differential Plt Count MPV Immature Gran % (Auto) Neut % (Auto) Lymph % (Auto) Cameron % (Auto) Eos % (Auto) Baso % (Auto) Absolute Neuts (auto) Absolute Lymphs (auto) Total Counted Polychromasia Hypochromasia Anisocytosis Microcytosis Macrocytosis Tear Drop Cells PT INR Specimen Type Sample Site pH Bicarbonate Actual POC Total CO2 Base Excess O2 Saturation O2 % ABG pCO2 ABG pO2 Iam Test Respiration Rate O2 Delivery Device Vent Mode Tidal Volume POC PEEP Blood Gas Notified Whom Blood Gas Notified Time Sodium Potassium Chloride Carbon Dioxide Anion Gap BUN Creatinine Estim Creat Clear Calc Est GFR (MDRD) Af Amer Est GFR (MDRD) Non-Af BUN/Creatinine Ratio Glucose Lactic Acid 2.3 H Calcium Phosphorus Magnesium Total Bilirubin GGT 111 H AST ALT Alkaline Phosphatase Ammonia Total Creatine Kinase Troponin I Total Protein Albumin Globulin Albumin/Globulin Ratio Triglycerides TSH Free T4 MRSA (PCR) POC Glucose 92 06/21/17 06/21/17 06/21/17 15:45 15:45 15:48 WBC RBC Hgb Hct MCV MCH MCHC RDW RDW Differential Plt Count MPV Immature Gran % (Auto) Neut % (Auto) Lymph % (Auto) Cameron % (Auto) Eos % (Auto) Baso % (Auto) Absolute Neuts (auto) Absolute Lymphs (auto) Total Counted Polychromasia Hypochromasia Anisocytosis Microcytosis Macrocytosis Tear Drop Cells PT INR Specimen Type Sample Site pH Bicarbonate Actual POC Total CO2 Base Excess O2 Saturation O2 % ABG pCO2 ABG pO2 Iam Test Respiration Rate O2 Delivery Device Vent Mode Tidal Volume POC PEEP Blood Gas Notified Whom Blood Gas Notified Time Sodium 134 L Potassium 4.4 Chloride 96 L Carbon Dioxide 29.0 Anion Gap 9 BUN 16 Creatinine 2.90 H Estim Creat Clear Calc 23.32 Est GFR (MDRD) Af Amer 22 L Est GFR (MDRD) Non-Af 19 L BUN/Creatinine Ratio 5.5 L Glucose 106 Lactic Acid Calcium 7.8 L Phosphorus 4.7 Magnesium 2.1 Total Bilirubin GGT AST ALT Alkaline Phosphatase Ammonia Total Creatine Kinase Troponin I Total Protein Albumin Globulin Albumin/Globulin Ratio Triglycerides TSH Free T4 MRSA (PCR) POC Glucose 109 06/21/17 06/21/17 06/21/17 17:32 19:25 20:20 WBC RBC Hgb Hct MCV MCH MCHC RDW RDW Differential Plt Count MPV Immature Gran % (Auto) Neut % (Auto) Lymph % (Auto) Cameron % (Auto) Eos % (Auto) Baso % (Auto) Absolute Neuts (auto) Absolute Lymphs (auto) Total Counted Polychromasia Hypochromasia Anisocytosis Microcytosis Macrocytosis Tear Drop Cells PT INR Specimen Type Sample Site pH Bicarbonate Actual POC Total CO2 Base Excess O2 Saturation O2 % ABG pCO2 ABG pO2 Iam Test Respiration Rate O2 Delivery Device Vent Mode Tidal Volume POC PEEP Blood Gas Notified Whom Blood Gas Notified Time Sodium Potassium Chloride Carbon Dioxide Anion Gap BUN Creatinine Estim Creat Clear Calc Est GFR (MDRD) Af Amer Est GFR (MDRD) Non-Af BUN/Creatinine Ratio Glucose Lactic Acid Calcium Phosphorus Magnesium Total Bilirubin GGT AST ALT Alkaline Phosphatase Ammonia Total Creatine Kinase 28 Troponin I Total Protein Albumin Globulin Albumin/Globulin Ratio Triglycerides TSH Free T4 MRSA (PCR) POC Glucose 154 H 164 H 06/21/17 06/21/17 06/21/17 20:30 20:30 22:05 WBC RBC Hgb Hct MCV MCH MCHC RDW RDW Differential Plt Count MPV Immature Gran % (Auto) Neut % (Auto) Lymph % (Auto) Cameron % (Auto) Eos % (Auto) Baso % (Auto) Absolute Neuts (auto) Absolute Lymphs (auto) Total Counted Polychromasia Hypochromasia Anisocytosis Microcytosis Macrocytosis Tear Drop Cells PT INR Specimen Type Sample Site pH Bicarbonate Actual POC Total CO2 Base Excess O2 Saturation O2 % ABG pCO2 ABG pO2 Iam Test Respiration Rate O2 Delivery Device Vent Mode Tidal Volume POC PEEP Blood Gas Notified Whom Blood Gas Notified Time Sodium 134 L Potassium 4.6 Chloride 97 L Carbon Dioxide 26.0 Anion Gap 11 BUN 18 Creatinine 3.18 H Estim Creat Clear Calc 21.27 Est GFR (MDRD) Af Amer 20 L Est GFR (MDRD) Non-Af 17 L BUN/Creatinine Ratio 5.7 L Glucose 163 H Lactic Acid Calcium 7.8 L Phosphorus 4.3 Magnesium 2.0 Total Bilirubin GGT AST ALT Alkaline Phosphatase Ammonia Total Creatine Kinase Troponin I 0.07 H Total Protein Albumin Globulin Albumin/Globulin Ratio Triglycerides 92 TSH Free T4 MRSA (PCR) POC Glucose 164 H 06/22/17 06/22/17 06/22/17 01:32 04:30 04:30 WBC 8.2 RBC 2.60 L Hgb 8.0 L Hct 25.4 L MCV 97.7 MCH 30.8 MCHC 31.5 L RDW 20.7 H RDW Differential 72.6 H Plt Count 107 L MPV 11.6 Immature Gran % (Auto) 0.400 Neut % (Auto) 72.6 H Lymph % (Auto) 17.7 L Cameron % (Auto) 5.4 Eos % (Auto) 3.7 Baso % (Auto) 0.2 Absolute Neuts (auto) 6.0 Absolute Lymphs (auto) 1.45 Total Counted Not Reportable Polychromasia RARE Hypochromasia 1+ Anisocytosis 2+ Microcytosis 1+ Macrocytosis 1+ Tear Drop Cells RARE PT 18.4 H INR 1.6 Specimen Type Sample Site pH Bicarbonate Actual POC Total CO2 Base Excess O2 Saturation O2 % ABG pCO2 ABG pO2 Iam Test Respiration Rate O2 Delivery Device Vent Mode Tidal Volume POC PEEP Blood Gas Notified Whom Blood Gas Notified Time Sodium Potassium Chloride Carbon Dioxide Anion Gap BUN Creatinine Estim Creat Clear Calc Est GFR (MDRD) Af Amer Est GFR (MDRD) Non-Af BUN/Creatinine Ratio Glucose Lactic Acid Calcium Phosphorus Magnesium Total Bilirubin GGT AST ALT Alkaline Phosphatase Ammonia Total Creatine Kinase Troponin I Total Protein Albumin Globulin Albumin/Globulin Ratio Triglycerides TSH Free T4 MRSA (PCR) POC Glucose 141 H 06/22/17 06/22/17 06/22/17 04:30 04:30 06:18 WBC RBC Hgb Hct MCV MCH MCHC RDW RDW Differential Plt Count MPV Immature Gran % (Auto) Neut % (Auto) Lymph % (Auto) Cameron % (Auto) Eos % (Auto) Baso % (Auto) Absolute Neuts (auto) Absolute Lymphs (auto) Total Counted Polychromasia Hypochromasia Anisocytosis Microcytosis Macrocytosis Tear Drop Cells PT INR Specimen Type Sample Site pH Bicarbonate Actual POC Total CO2 Base Excess O2 Saturation O2 % ABG pCO2 ABG pO2 Iam Test Respiration Rate O2 Delivery Device Vent Mode Tidal Volume POC PEEP Blood Gas Notified Whom Blood Gas Notified Time Sodium 133 L Potassium 4.0 Chloride 96 L Carbon Dioxide 28.0 Anion Gap 9 BUN 18 Creatinine 3.46 H Estim Creat Clear Calc 19.55 Est GFR (MDRD) Af Amer 18 L Est GFR (MDRD) Non-Af 15 L BUN/Creatinine Ratio 5.2 L Glucose 82 Lactic Acid Calcium 7.7 L Phosphorus 4.1 Magnesium 2.0 Total Bilirubin 0.90 GGT AST 486 H ALT 162 H Alkaline Phosphatase 613 H Ammonia Total Creatine Kinase Troponin I Total Protein 5.7 L Albumin 2.0 L Globulin 3.7 Albumin/Globulin Ratio 0.5 L Triglycerides TSH Free T4 MRSA (PCR) POC Glucose 81 06/22/17 06/22/17 06/22/17 10:27 16:07 21:18 WBC RBC Hgb Hct MCV MCH MCHC RDW RDW Differential Plt Count MPV Immature Gran % (Auto) Neut % (Auto) Lymph % (Auto) Cameron % (Auto) Eos % (Auto) Baso % (Auto) Absolute Neuts (auto) Absolute Lymphs (auto) Total Counted Polychromasia Hypochromasia Anisocytosis Microcytosis Macrocytosis Tear Drop Cells PT INR Specimen Type Sample Site pH Bicarbonate Actual POC Total CO2 Base Excess O2 Saturation O2 % ABG pCO2 ABG pO2 Iam Test Respiration Rate O2 Delivery Device Vent Mode Tidal Volume POC PEEP Blood Gas Notified Whom Blood Gas Notified Time Sodium Potassium Chloride Carbon Dioxide Anion Gap BUN Creatinine Estim Creat Clear Calc Est GFR (MDRD) Af Amer Est GFR (MDRD) Non-Af BUN/Creatinine Ratio Glucose Lactic Acid Calcium Phosphorus Magnesium Total Bilirubin GGT AST ALT Alkaline Phosphatase Ammonia Total Creatine Kinase Troponin I Total Protein Albumin Globulin Albumin/Globulin Ratio Triglycerides TSH Free T4 MRSA (PCR) POC Glucose 135 H 188 H 181 H Microbiology 06/21/17 21:25 Stool C. difficile DNA Amplification - Final Clinical Impression(s) from Imaging Studies Chest X-Ray 06/21/17 06:20 IMPRESSION: Stable bilateral patchy pneumonia. Electronically Signed: Jose Antonio Paredes MD at 7:23 EST Tel , Service support , Chest X-Ray 06/21/17 08:12 IMPRESSION: Progressive bilateral airspace disease worse in the right hemithorax. Follow-up is recommended. Electronically Signed: Thuan Benton MD at 8:58 EST Tel [phone], Service support , Abdomen CT 06/22/17 16:41 IMPRESSION: 1. Right middle and lower lobe atelectasis. Pleural-based consolidation of the right lower lobe measuring 3.9 x 2.8 cm. 2. Small right-sided pleural effusion. 3. Cardiomegaly. 4. Status post cholecystectomy and hysterectomy. 5. Mild splenomegaly. 6. There is diffuse colonic wall thickening which may represent colitis. 7. Retroperitoneal/periaortic adenopathy. 8. [place] catheter present within a decompressed urinary bladder. 9. Diffuse subcutaneous edema consistent with anasarca. Electronically Signed: Wilfredo Srinivasan MD at 21:38 EST , Service support , Assessment/Plan Active and Suspected Problems Hyperphosphatemia (Acute) Lactic acidosis (Acute) Abnormal LFTs (Acute) Metabolic acidosis (Acute) RECOMMENDATIONS: 1. Wean supplemental oxygen to maintain saturations at or above 90%. 2. Recommend completing an empiric 7 day course of antibiotics given consolidation noted on CT scan 3. Continue subcutaneous heparin and Pepcid for prophylaxis 4. Continue Accu-Cheks and sliding scale insulin coverage 5. Ongoing hemodialysis per nephrology recommendations 6. Recommended the patient follow-up in the pulmonary medicine clinic so that a repeat CT can be obtained in 6-8 weeks to document resolution of the consolidative process noted on CT abdomen/pelvis. IMPRESSIONS: 1. Acute hypoxemic and hypercarbic respiratory failure Concern for potential aspiration event in conjunction with #2 as likely inciting factors. The patient has done well following extubation. We will continue to wean supplemental oxygen to maintain saturations at or above 90%. Continue to encourage aggressive incentive spirometer use and mobilize patient as tolerated. Follow-up in the pulmonary medicine clinic with plans to repeat chest imaging in 6-8 weeks to document resolution of the right lower lobe consolidation. 2. Encephalopathy likely metabolic in nature Resolved. The patient did reportedly missed a dialysis session this week. In addition, she has a known history of hypothyroidism. Although her TSH was elevated, her free T4 level was within normal limits. 3. Severe sepsis As above, concern for aspiration event. Antibiotics will be continued with plans to complete an empiric 7 day treatment course. Plan for follow-up chest imaging as noted above. 4. End-stage renal disease on hemodialysis Ongoing hemodialysis per nephrology recommendations. 5. Severe hyperglycemia/uncontrolled type 1 diabetes mellitus Continue basal plus sliding scale insulin coverage. 6. Anion gap metabolic acidosis secondary to lactic acidemia Resolved following hemodialysis and stabilization of the patient's hemodynamics. 7. Anemia/hypertension/hyperlipidemia/recurrent C. difficile colitis/ hypothyroidism Complicates care, management, recovery and prognosis. Continue home Synthroid regimen. This note was generated with [employer] software. It may contain incorrect words, spelling, and punctuation that were not noted in checking the note before signing. DISPOSITION: The patient is medically stable for transfer out of the intensive care unit. Code Visit Inpatient E&M: [id number] [facility] Hosp L3
[2017-06-23] MEDS: Heparin Injection 5,000 UNITS/ML Syringe 5000 UNITS SC ×3 (05:22→21:56)
[2017-06-23] MEDS: SEVELAMER CARBONATE 800 MG TABLET PO ×3 (05:23→22:02)
[2017-06-23] MEDS: CHLORHEXIDINE GLUC 2% CLOTH 1 EACH TOWELETTE TOPICAL (05:23)
[2017-06-23] MEDS: Levothyroxine 50 MCG Tablet PO (05:23)
[2017-06-23] MEDS: Calcium Acetate 667 MG Capsule PO ×3 (07:40→16:56)
[2017-06-23] MEDS: Allopurinol 100 MG Tablet 200 MG PO (07:41)
[2017-06-23 07:51] LABS: Bedside Glucose 192 mg/dL (70-110)
--- NOTE | 2017-06-23 08:51 | PN_ITS ---
Patient Problems: Active and Suspected Problems Hyperphosphatemia (Acute) Lactic acidosis (Acute) Abnormal LFTs (Acute) Metabolic acidosis (Acute) Subjective: Cefepime Day #3 47-year-old female with past medical history of diabetes mellitus type 1, end- stage renal disease currently on hemodialysis, hypertension, history of C. difficile enterocolitis and one episode of paroxysmal atrial fibrillation when she was in the hospital and critically ill with no recurrence. She was admitted to the hospital with acute combined respiratory failure due to severe hypocalcemia, hyperphosphatemia and hyperkalemia. She underwent dialysis on Wednesday 06/21 and has been significantly improved. She was extubated 06/22. She had missed dialysis on 06/19 because she was too ill....likely due to the extreme ELYTE abnormalities. She had been drinking large amounts of OJ. LFT's are increased with the exception of the Bili and she has had a cholecystecomy ion the past. She is doing very well. Tells me she really does not know how to read labels and does not know what she should be avoiding. Her BS's are labile.....even in the hospital but she told me they have been mostly controlled at home with an occasional 300. She did not see [facility] because she did not know that she was supposed to call for an appt so [facility] tomorrow will have an appt scheduled for her so that she knows when to show up. She is afebrile. Systolic blood pressures are mildly increased but the diastolics are well within normal limits. She is 91-93% saturated on a 1 L nasal cannula. Blood sugars have all been less than 200 since admission. Clostridium difficile is negative and the influenza swab was negative. Blood cultures have no growth so far and the urine culture is still pending. - Physical Exam General: Alert, Oriented x3, Cooperative, No apparent distress HEENT: Atraumatic, PERRLA, EOMI, Normocephalic Oral: Moist Mucosa Neck: Supple, No JVD, Negative Carotid Bruits, No Nodes, Trachea Midline Lungs: Rales - she had coarse rales in the bases that mostly resolved after a few deep breaths. Encouraged to hit the IS hard today. Cardiovascular: Regular rate, Regular Rhythm, Normal S1, Normal S2, No Gallop Abdomen: Bowel Sounds Present, Soft, Non Tender, Non-Distended Extremities: No clubbing, No cyanosis, No edema Skin: No rashes, No breakdown Neurological: Cranial nerves II-XII grossly intact, Neuro grossly intact Psych/Mental Status: Normal Affect, Appropriate Vital Signs Temp Pulse Resp BP Pulse Ox 98.4 F 77 17 156/59 H 93 06/23/17 07:51 06/23/17 07:51 06/23/17 07:51 06/23/17 07:51 06/23/17 07:54 Oxygen Flow Rate 1 Oxygen Delivery Method Nasal Cannula Weight: 186 lb 15.232 oz Body Mass Index (BMI) 29.4 Intake and Output for Last 24 Hours 06/21/17 06/22/17 06/23/17 23:59 23:59 23:59 Intake Total 561.2 / 561.2 1666 / 1666 66 / 66 Output Total 1000 / 1800 105 / 105 20 Balance -438.8 / -1238.8 1561 / 1561 46 / 46 Microbiology Past 72 Hours 06/21/17 21:25 C. difficile DNA Amplification - Final Stool POC Glucose 06/23/17 06/22/17 06/22/17 07:39 21:18 16:07 POC Glucose 192 H 181 H 188 H 06/22/17 10:27 POC Glucose 135 H Assessment/Plan Active and Suspected Problems Hyperphosphatemia (Acute) Lactic acidosis (Acute) Abnormal LFTs (Acute) Metabolic acidosis (Acute) Impressions 1. acute respiratory failure with hypoxemia and borderline hypercarbia 2. severe sepsis - possible aspiration 3. severe lactic acidosis 4. hyperkalemia 5. Hyperphosphatemia 6. DM I with uncontrolled blood sugars 7. ESRD on HD 8. metabolic encephalopathy 9. anemia of CRF 10. hx HTN 11. HLD 12. hx of recurrent episodes of C DIFF 13. Abnormal LFTs - etiology? CT of the abdomen and the pelvis on 06/22 showed atelectasis in the right lower lobe and right middle lobe. There is a right lower lobe area of consolidation measuring 3.9 x 2.8 cm in the right lower lobe and a small right pleural effusion is noted. Liver appeared normal and there is mild splenomegaly and a normal pancreas. There was diffuse thickening of the colonic wall. There are calcified plaques in the abdominal aorta and iliac arteries. There was diffuse subcutaneous edema consistent with anasarca of the abdominal wall. Etiology of the elevated AST, ALT and AP is still unclear....may have been due to R heart failure with the slow sinusoidal rhythm at admission. Transfer to PCU. HD tomorrow continue teaching regarding appropriate diet Has been c/o of chest pain which sounds musculoskeletal but she is a type I diabetic with neuropathy. will get a EKG now and schedule for an ECHO and a chemical nuclear stress in the AM Probable DC after HD on Saturday Code Visit Inpatient E&M: 13595 [facility] Hosp L2
[2017-06-23] MEDS: Famotidine 20 MG Tablet PO ×2 (09:33→22:03)
[2017-06-23] MEDS: Metoprolol Tartrate 25 MG Tablet PO ×2 (09:33→21:57)
[2017-06-23] MEDS: Venlafaxine HCl 75 MG Tablet PO (09:33)
[2017-06-23] MEDS: Fluticasone 0.05% 1 SPRAY NASAL.SRY NASAL (10:52)
[2017-06-23] MEDS: Vitamin B Comp W-C Capsule 1 CAP PO (10:53)
[2017-06-23] MEDS: amLODIPine 10 MG Tablet PO (10:53)
[2017-06-23] MEDS: Levothyroxine 25 MCG TABLET PO (10:55)
[2017-06-23 12:11] LABS: Bedside Glucose 285 mg/dL (70-110)
[2017-06-23] MEDS: Nepro Liquid 120 ML LIQUID PO ×2 (13:15→17:01)
[2017-06-23] MEDS: 0.9% NaCl Peripheral Flush Adult/Peds IV (13:22)
[2017-06-23 17:26] LABS: Bedside Glucose 211 mg/dL (70-110)
[2017-06-23] MEDS: Gabapentin 100 MG Capsule PO ×2 (22:01→22:24)
[2017-06-23] MEDS: Latanoprost 0.005% 1 Bottle 1 DRP EACH EYE (22:04)
--- NOTE | 2017-06-23 22:14 | ECHOD_ITS ---
Reason For Study: Chest Pain Procedure This was a 2D Doppler, Color Flow transthoracic echocardiogram. Exam performed in department. Left Ventricle Normal LV size. Mild concentric left ventricular hypertrophy. Left ventricular systolic function is normal. The estimated ejection fraction is 60 %. No regional wall motion abnormalities noted. Right Ventricle Normal RV size. Normal systolic function. Atria The left atrium is moderately enlarged. Normal right atrium. Catheter in R atrium. Mitral Valve There is moderate mitral annular calcification. Mild (1+) eccentric mitral valve insufficiency. Tricuspid Valve Normal tricuspid valve. Mild to moderate (1-2+) tricuspid valve insufficiency. Pulmonary artery systolic pressure is 60 mmHg. Moderate pulmonary hypertension. Aortic Valve Trisinus/trileaflet aortic valve. Mild focal aortic valve calcification. Trivial aortic valve insufficiency. Pulmonic Valve Normal pulmonic valve. Mild (1+) pulmonic valve insufficiency. Great Vessels Normal aortic root. The pulmonary artery is normal size. Normal inferior vena cava. Pericardium/Pleural No pericardial effusion. MMode/2D Measurements & Calculations LVIDd: 4.3 cm IVSd: 1.4 cm LVOT diam: 2.0 cm LVIDs: 3.0 cm LVPWd: 1.3 cm LVOT area: 3.3 cm2 RVDd: 4.2 cm FS: 29.4 % Ao root diam: 3.1 cm LAV(MOD-bp): 105.3 ml LA A4 area: 30.6 cm2 LA dimension: 5.1 cm LAV(MOD-bp) Indexed: 53.7 ml/m2 LAV(MOD-sp2): 104.8 ml LAV(MOD-sp4): 105.2 ml RA A4 area: 18.0 cm2 Time Measurements MV dec time: 0.23 sec Doppler Measurements & Calculations MV E max rico: 172.6 cm/sec Lat Peak E' Rico: 12.9 cm/sec Med Peak E' Rico: 7.4 cm/sec MV A max rico: 111.6 cm/sec E/E' lat: 13.4 E/E' med: 23.2 MV E/A: 1.5 MV V2 max: 187.5 cm/sec MV P1/2t max rico: 187.5 cm/sec Ao V2 max: 200.6 cm/sec MV max P.1 mmHg MV P1/2t: 86.4 msec Ao max P.1 mmHg MV V2 mean: 113.9 cm/sec MV dec slope: 635.2 cm/sec2 Ao V2 mean: 127.6 cm/sec MV mean P.8 mmHg MVA(P1/2t): 2.5 cm2 Ao mean P.6 mmHg MV V2 VTI: 50.6 cm Ao V2 VTI: 39.9 cm MVA(VTI): 2.0 cm2 MIRA(I,D): 2.5 cm2 MIRA(V,D): 2.3 cm2 AI max rico: 364.0 cm/sec LV V1 max: 141.0 cm/sec SV(LVOT): 99.3 ml AI max P.0 mmHg LV V1 max P.0 mmHg AI dec slope: 323.6 cm/sec2 LV V1 mean P.6 mmHg AI P1/2t: 329.5 msec LV V1 mean: 86.1 cm/sec LV V1 VTI: 30.5 cm PA V2 max: 134.8 cm/sec TR max rico: 369.2 cm/sec TR max P.6 mmHg Interpretation Summary Normal LV size. Mild concentric left ventricular hypertrophy. Left ventricular systolic function is normal. The estimated ejection fraction is 60 %. There is moderate mitral annular calcification. Mild (1+) eccentric mitral valve insufficiency. Pulmonary artery systolic pressure is 60 mmHg. Moderate pulmonary hypertension. Ordering Physician: Crow Hays Referring Physician: FLORIN MCMANUS DR Performed By: Grupo Blake RCS
[2017-06-23 22:17] LABS: Bedside Glucose 417 mg/dL (70-110)
[2017-06-23 23:36] LABS: Bedside Glucose 419 mg/dL (70-110)
[2017-06-24] VITALS (12 sets, daily range): BP systolic 155–173; BP diastolic 75–85; PULSE 64–78; RESP 16–18; TEMP 36.6–36.7; O2SAT 94–99
[2017-06-24 02:21] LABS: Bedside Glucose 227 mg/dL (70-110)
--- NOTE | 2017-06-24 05:00 | EKG12_ITS ---
Test Reason : MORNING EKG Blood Pressure : / mmHG Vent. Rate : 066 BPM Atrial Rate : 066 BPM P-R Int : 184 ms QRS Dur : 098 ms QT Int : 444 ms P-R-T Axes : 049 010 062 degrees QTc Int : 465 ms Normal sinus rhythm Low voltage QRS (limb leads) Confirmed by ABIMBOLA JEREZ, SID ([id number]), digital editor MARYAN AMBRIZ ([id number]) on 06/26/2017 2:59:57 PM Referred By: ROLANDO Confirmed By:SID DAILY MD
[2017-06-24 05:40] LABS: Absolute Lymphocyte Count 0.98 X10^3/ul (0.83-4.51); Absolute Neutrophil Count 4.1 X10^3/uL (2.0-7.7); Basophil# 0.04 X10^3/uL; Basophil% 0.6 % (0-1); Hematocrit 25.5 % (37-47); Hemoglobin 8.2 g/dl (12.0-15.0); Lymphocyte # 0.98 X10^3/ul (4.0); Lymphocyte % 15.7 % (19-41); Mean Corp Hgb Conc 32.2 g/gl (32-36); Mean Corpuscular Hgb 31.5 pg (27.0-32.0); Mean Corpuscular Volume 98.1 fL (81-99); Mean Platelet Vol. 11.1 fl (6.2-12.0); Monocyte# 0.57 X10^3/uL; Monocyte% 9.1 % (0-10); Neutrophil # 4.14 X10^3/uL (2.7-7.7); Neutrophil % 66.3 % (47-70); Platelet Count 117 K/mm3 (150-450); RBC Distribution Width CV 17.8 % (11.6-14.6); RBC Distribution Width SD 60.3 fl (35.1-43.9); White Blood Count 6.3 K/mm3 (4.4-11.0)
[2017-06-24 05:49] LABS: International Normalized Ratio 1.2; Prothrombin Time (Protime)PT. 14.8 SECONDS (11.7-14.9)
[2017-06-24 05:57] LABS: ALB/GLOB Ratio 0.6 RATIO (0.9-2.4); AST(SGOT) 85 U/L (15-37); Alanine Aminotransfer ALT/SGPT 90 U/L (13-56); Albumin, Serum 2.4 g/dL (3.2-5.0); Alkaline Phosphatase 531 U/L (45-117); Anion Gap 11 (5-15); BUN 34 mg/dL (7-18); BUN/Creat Ratio 5.9 RATIO (10-20); Calcium,Total 8.5 mg/dL (8.5-10.1); Chloride 96 mmol/L (98-107); Cholesterol 61 mg/dL (200); Creatinine, Serum 5.72 mg/dL (0.55-1.02); EST Glomerular Filtration Rate 8 mL/min (>60); Est Glom Filt Rate - Afr Amer 10 mL/min (>60); Estimated Creatinine Clearance 11.82 ml/min; Globulin 4.3 g/dL (2.2-4.2); Glucose 80 mg/dL (74-106); High Density Lipoprotein 30 mg/dL; Phosphorus 6.7 mg/dL (2.5-4.9); Potassium 3.7 mmol/L (3.5-5.1); Protein, Total 6.7 g/dL (6.4-8.2); Sodium Level 135 mmol/L (136-145); Triglycerides 37 mg/dL; Very Low Density Lipoprotein 7 mg/dL (5-40)
[2017-06-24] MEDS: Levothyroxine 75 MCG Tablet PO (06:04)
[2017-06-24 06:07] LABS: POSITIVE COUNT NO; POSITIVE DIFFERENTIAL NO; POSITIVE MORPHOLOGY NO
[2017-06-24] MEDS: Dextrose 50%-Water 25 GM/50 ML DISP.SYRIN IV ×2 (06:26→07:52)
[2017-06-24] MEDS: 0.9% NaCl Peripheral Flush Adult/Peds IV ×3 (06:27→15:36)
[2017-06-24 06:51] LABS: Bedside Glucose 55 mg/dL (70-110)
[2017-06-24 06:51] LABS: Bedside Glucose 123 mg/dL (70-110)
[2017-06-24 06:51] LABS: Bedside Glucose 55 mg/dL (70-110)
[2017-06-24 07:51] LABS: Bedside Glucose 89 mg/dL (70-110)
--- NOTE | 2017-06-24 09:16 | PN_ITS ---
Patient Problems: Active and Suspected Problems Hyperphosphatemia (Acute) Lactic acidosis (Acute) Abnormal LFTs (Acute) Metabolic acidosis (Acute) Subjective: Patient was seen and examined. Patient was extubated on 23 a.m. She is currently afebrile and maintaining oxygen saturations on room air. She remains hemodynamically stable. Patient was NPO after midnight for upcoming stress test /echocardiogram and blood sugar this morning was 55. An amp of D50 was given with recovery of her blood sugar. Objective: Lab work reviewed, hemoglobin is stable and no leukocytosis. BUN is 34 and creatinine 5.72, plans for dialysis later today as patient is on a Saturday schedule. C. difficile and influenza both negative. Blood cultures from 06/21 with NG. Urine culture is pending. CT the abdomen 06/22 revealed evidence of pleural-based consolidation in the right lower lobe and associated small pleural effusion. - Physical Exam General: Alert, Oriented x3, Cooperative, No apparent distress HEENT: Atraumatic, Normocephalic Oral: Moist Mucosa, No Gingival or Mucosal Lesions/ Ulcerations Neck: Supple, No Nodes, Trachea Midline Lungs: No rhonchi, No wheeze, No rales, Diminished Cardiovascular: Regular rate, Regular Rhythm, Normal S1, Normal S2, No murmurs Abdomen: Bowel Sounds Present, Soft, Non Tender, Non-Distended, Obese Extremities: No clubbing, No cyanosis, No edema, - - fistula LUE, dialysis port R chest Skin: No rashes, - - L kendall IO site intact Musculoskeletal: No Tenderness to Palpation of Joints or Extremities Lymphatic: No Cervical, Supraclavicular, or Inguinal Adenopathy Neurological: Cranial nerves II-XII grossly intact, Neuro grossly intact, Motor Exam 5/5 strength throughout Psych/Mental Status: Alert and oriented to time, place, person, mood and affect Vital Signs Temp Pulse Resp BP Pulse Ox 97.9 F 71 16 155/75 H 94 06/24/17 04:14 06/24/17 06:54 06/24/17 04:14 06/24/17 04:14 06/24/17 07:46 Oxygen Flow Rate 1 Oxygen Delivery Method Room Air Weight: 187 lb 9.814 oz Body Mass Index (BMI) 29.4 Intake and Output for Last 24 Hours 06/22/17 06/23/17 06/24/17 23:59 23:59 23:59 Intake Total 1666 / 1666 966 / 966 300 / 300 Output Total 105 / 105 20 / 20 Balance 1561 / 1561 946 / 946 300 / 300 Microbiology Past 72 Hours 06/21/17 21:25 C. difficile DNA Amplification - Final Stool Laboratory Tests Past 24 Hrs 06/24/17 06/24/17 06/24/17 05:10 05:10 05:10 WBC 6.3 RBC 2.60 L Hgb 8.2 L Hct 25.5 L MCV 98.1 MCH 31.5 MCHC 32.2 RDW 17.8 H RDW Differential 60.3 H Plt Count 117 L MPV 11.1 Immature Gran % (Auto) 0.300 Neut % (Auto) 66.3 Lymph % (Auto) 15.7 L [place] % (Auto) 9.1 Eos % (Auto) 8.0 H Baso % (Auto) 0.6 Absolute Neuts (auto) 4.1 Absolute Lymphs (auto) 0.98 Total Counted Not Reportable PT 14.8 INR 1.2 Sodium 135 L Potassium 3.7 Chloride 96 L Carbon Dioxide 28.0 Anion Gap 11 BUN 34 H Creatinine 5.72 H Estim Creat Clear Calc 11.82 Est GFR (MDRD) Af Amer 10 L Est GFR (MDRD) Non-Af 8 L BUN/Creatinine Ratio 5.9 L Glucose 80 Calcium 8.5 Phosphorus 6.7 H Total Bilirubin 0.70 AST 85 H ALT 90 H Alkaline Phosphatase 531 H Total Protein 6.7 Albumin 2.4 L Globulin 4.3 H Albumin/Globulin Ratio 0.6 L Triglycerides 37 Cholesterol 61 LDL Cholesterol 24 VLDL Cholesterol 7 HDL Cholesterol 30 L POC Glucose 06/24/17 06/24/17 06/24/17 07:40 06:42 06:24 POC Glucose 89 123 H 55 L 06/24/17 06/24/17 06/23/17 05:57 02:12 23:30 POC Glucose 55 L 227 H 419 H 06/23/17 06/23/17 06/23/17 21:52 16:49 12:01 POC Glucose 417 H 211 H 285 H Assessment/Plan Active and Suspected Problems Hyperphosphatemia (Acute) Lactic acidosis (Acute) Abnormal LFTs (Acute) Metabolic acidosis (Acute) RECOMMENDATIONS: 1. Wean supplemental oxygen to maintain saturations at or above 90%. 2. Continue empiric antibiotics to complete 7 day course given consolidation noted on CT scan 3. Continue Accu-Cheks and sliding scale insulin coverage, adjust as indicated 4. Ongoing hemodialysis per nephrology recommendations 5. Await stress test/echocardiogram results today 6. Recommended the patient follow-up in the pulmonary medicine clinic so that a repeat CT can be obtained in 6-8 weeks to document resolution of the consolidative process noted on CT abdomen/pelvis. 7. Okay to discharge from pulmonary standpoint, please obtain walking oximetry prior to d/c IMPRESSIONS: 1. Acute hypoxemic and hypercarbic respiratory failure Concern for potential aspiration event in conjunction with #2 as likely inciting factors. The patient has done well following extubation. We will continue to wean supplemental oxygen to maintain saturations at or above 90%. She is doing well on room air. Continue to encourage aggressive incentive spirometer use and mobilize patient as tolerated. Await stress/echo and patient okay to be discharged from pulmonary standpoint today. Follow-up in the pulmonary medicine clinic with plans to repeat chest imaging in 6-8 weeks to document resolution of the right lower lobe consolidation. 2. Encephalopathy likely metabolic in nature Resolved. The patient did reportedly missed a dialysis session this week. In addition, she has a known history of hypothyroidism. Although her TSH was elevated, her free T4 level was within normal limits. 3. Severe sepsis As above, concern for aspiration event. Antibiotics will be continued with plans to complete an empiric 7 day treatment course. Plan for follow-up chest imaging as noted above. 4. End-stage renal disease on hemodialysis Ongoing hemodialysis per nephrology recommendations. 5. Severe hyperglycemia/uncontrolled type 1 diabetes mellitus Continue basal plus sliding scale insulin coverage and adjust as indicated. Patient did have some hypoglycemia this morning, blood sugar was 55 and an amp of D50 was given. The patient was n.p.o. for her nuclear stress test. Continue to closely monitor. 6. Anion gap metabolic acidosis secondary to lactic acidemia Resolved following hemodialysis and stabilization of the patient's hemodynamics. 7. Anemia/hypertension/hyperlipidemia/recurrent C. difficile colitis/ hypothyroidism Complicates care, management, recovery and prognosis. Continue home Synthroid regimen. This note was generated with [employer] software. It may contain incorrect words, spelling, and punctuation that were not noted in checking the note before signing.
[2017-06-24 11:41] LABS: Bedside Glucose 83 mg/dL (70-110)
--- NOTE | 2017-06-24 12:35 | PCM.PN.BLA ---
Progress Note seen on dialysis Access is RIJ TDC BP 125/65 UF 3-4 L as tolerated Breathing appears back to normal stress test this am K levels are on lower side now, using 3 K bath
--- NOTE | 2017-06-24 14:29 | STRESSREP ---
Stress Test Report Pharmacologic myocardial perfusion stress test. 47 year old lady with a history of chest pain. Chronic renal insufficiency and anemia. Stress protocol: Normal sinus rhythm with rate of 71 bpm. Normal intervals and noted resting blood pressure is 130/78 mmHg. 0.4 mg of regadenoson was infused per usual protocol followed by rapid intravenous saline flush injection. Continuous EKG monitoring was performed. The patient maintained sinus rhythm throughout the recording. At rest there were no ST or T-wave changes noted suggest abnormal flow reserve at peak infusion no ST or T-wave changes were noted suggest abnormal flow reserve. No clinical angina was noted. The maximum heart rate attained was 94 bpm which was 54% of maximum predicted heart rate the maximum workload attained was 1 metabolic equivalent. Resting blood pressure is 130/78 with a final blood pressure 132/68. Myocardial perfusion protocol: 11.0 mCi of technetium 99m sestamibi was injected at rest. 0.4 mg regadenoson was infused per usual protocol peak infusion 32.0 mCi of technetium 99m sestamibi was injected. Stress images were obtained. Stress and rest images were reconstructed and compared in the short axis vertical long and horizontal long axis. Gated images were also obtained. Perfusion SPECT analysis: Review of the stress images demonstrate normal uptake of tracer noted in all areas of the myocardium. The resting images similarly demonstrate normal uptake of tracer noted in all areas of the myocardium. No areas of reversibility are noted suggest ischemia no previous infarct is noted. There is mild apical thinning present. Gated SPECT analysis: The gated ejection fraction is 60%. Conclusion: Normal pharmacologic myocardial perfusion stress test. Preserved ejection fraction.
--- NOTE | 2017-06-24 15:17 | PCM.DC ---
- Discharge Diagnoses Current Active Problems: Current Active and Chronic Problems Hyperphosphatemia (Acute) Lactic acidosis (Acute) Abnormal LFTs (Acute) Metabolic acidosis (Acute) Reason(s) for Visit for Discharge Instructions: Lethargy, Shortness of breath You will use the following diet at home:: Calorie/Carbohydrate Controlled (specify 1200, 1400, etc), Cardiac, Renal (restricted protein/sodium) Your food should be the consistency of: Regular Your liquids should be the consistency of: Regular/Thin Discharge Activity: Return to Normal Activity Additional Instructions: No changes to your medications. Keep a log of your blood sugars and try to follow-up with the nurse practitioner in Endocrinology within 2 weeks. Allergies/Adverse Reactions: Allergies Penicillins [PCN] Allergy (Verified 12/31/16 05:13) Hives Medications to take at Discharge Albuterol Inhaler [Ventolin Hfa] 2 puff INHALATION Q4H PRN PRN 10/28/16 Allopurinol [Zyloprim] 200 mg PO DAILY 10/28/16 Amlodipine [Norvasc] 10 mg PO DAILY 10/28/16 B Complex with Vitamin C [B-Complex Plus Vitamin C] 1 each PO DAILY 10/28/16 Calcium Acetate 667 mg PO TID 10/28/16 Docusate Sodium [Colace] 100 mg PO DAILY 10/28/16 Ergocalciferol [Vitamin D] 50,000 unit PO Q7D 10/28/16 Fluticasone 0.05% [Flonase Nasal [place]] 1 spray NASAL DAILY 10/28/16 Gabapentin [Neurontin] 100 mg PO QHS 10/28/16 Latanoprost 0.005% [Xalatan Opthalmic] 1 drop EACH EYE QHS 10/28/16 Levothyroxine [Synthroid] 50 mcg PO DAILY 10/28/16 Multivitamin/Iron/Folic Acid [Centrum Adults Tablet] 1 each PO DAILY 10/28/16 ProMETHAzine [Phenergan] 25 mg PO Q4H PRN PRN 10/28/16 Venlafaxine XR [Effexor Xr] 150 mg PO DAILY 10/28/16 Insulin Glargine [Lantus SoloStar Pen] 10 units SC QHS 05/17/17 Sevelamer Carbonate [Renvela] 800 mg PO TID 05/17/17 Metoprolol Tartrate [Lopressor (beta dutch)] 25 mg PO BID #60 tab 06/03/17 Levofloxacin [Levaquin] 750 mg PO QODAY #3 tab 06/24/17 Levothyroxine [Synthroid] 75 mcg PO DAILY@0600 #30 tab 06/24/17 The following prescriptions were given: Levofloxacin [Levaquin] 750 mg PO QODAY #3 tab Levothyroxine [Synthroid] 75 mcg PO DAILY@0600 #30 tab Primary Care Physician: Jasper Ovalles,Out of [Primary Care Provider] - Please follow up with your Primary Care Physician in: within 2 weeks Please Follow Up With: Nia Cannon MD When: as scheduled for dialysis Please Follow Up With: Iftikhar Miller MD When: 4 weeks Please Follow Up With: Brooklyn Crews, MILLING/POLISHING OPERATOR-C When: within 2 weeks with blood sugar log Proposed Discharge Date: 06/24/17
--- NOTE | 2017-06-24 15:20 | DS.PCM_ITS ---
Discharge Date and Diagnosis Date of Admission: 06/21/17 Date of Discharge: 06/24/17 - Primary Discharge Diagnosis Active and Suspected Problems Hyperphosphatemia (Acute) Lactic acidosis (Acute) Abnormal LFTs (Acute) Metabolic acidosis (Acute) - Secondary Discharge Diagnosis Chronic Problems End stage renal disease on dialysis (Chronic) Polyclonal gammopathy (Chronic) PAF (paroxysmal atrial fibrillation) (Chronic) Glaucoma (Chronic) Depression (Chronic) Hyperuricemia (Chronic) Hypertension (Chronic) DM type 1 (diabetes mellitus, type 1) (Chronic) Anemia (Chronic) Hospital Course and Treatment Imaging Results: 06/24/17 22:16 Nuclear Stress Test - Chemical [NM] Routine Senior Manufacturing Supervisor Senior Health Consultant Operations: None Procedures: 2-D Echocardiogram, Intubation Summary of Care Provided: 47-year-old female with past medical history of diabetes mellitus type 1, end- stage renal disease currently on hemodialysis, hypertension, history of C. difficile enterocolitis admitted to the hospital with acute combined respiratory failure due to severe hypocalcemia, hyperphosphatemia and hyperkalemia. She was inubated and managed in ICU as acute hypoxic/hypercapneic respiratory failure secondary to pneumonia with severe sepsis. Patient was started on antibiotics and discharged to complete 7 days total antibiotics. She underwent dialysis on Wednesday 06/21 and has been significantly improved. She was extubated 06/22/17. She had missed dialysis on 06/19 because she was unwell. LFT's were noted to be increased, history of cholecystecomy. Workup was unrevealing. Blod sugars were fluctuating in the hospital. She was referred to follow-up with endocrinology in the outpatient. At the time of discharge, her BS were around 80s. Patient was off her premeal insulin and she knows to follow- up with a log of her blood sugars Discharge Diet: Low fat/ Low Cholesterol, 2000 Calorie Control Diet, 2000 mg Sodium Diet, Renal Diet Discharge Activity: Return to Normal Activity Home Medications: Medications to take at Discharge Albuterol Inhaler [Ventolin Hfa] 2 puff INHALATION Q4H PRN PRN 10/28/16 Allopurinol [Zyloprim] 200 mg PO DAILY 10/28/16 Amlodipine [Norvasc] 10 mg PO DAILY 10/28/16 B Complex with Vitamin C [B-Complex Plus Vitamin C] 1 each PO DAILY 10/28/16 Calcium Acetate 667 mg PO TID 10/28/16 Docusate Sodium [Colace] 100 mg PO DAILY 10/28/16 Ergocalciferol [Vitamin D] 50,000 unit PO Q7D 10/28/16 Fluticasone 0.05% [Flonase Nasal [place]] 1 spray NASAL DAILY 10/28/16 Gabapentin [Neurontin] 100 mg PO QHS 10/28/16 Latanoprost 0.005% [Xalatan Opthalmic] 1 drop EACH EYE QHS 10/28/16 Levothyroxine [Synthroid] 50 mcg PO DAILY 10/28/16 Multivitamin/Iron/Folic Acid [Centrum Adults Tablet] 1 each PO DAILY 10/28/16 ProMETHAzine [Phenergan] 25 mg PO Q4H PRN PRN 10/28/16 Venlafaxine XR [Effexor Xr] 150 mg PO DAILY 10/28/16 Insulin Glargine [Lantus SoloStar Pen] 10 units SC QHS 05/17/17 Sevelamer Carbonate [Renvela] 800 mg PO TID 05/17/17 Metoprolol Tartrate [Lopressor (beta dutch)] 25 mg PO BID #60 tab 06/03/17 Levofloxacin [Levaquin] 750 mg PO QODAY #3 tab 06/24/17 Levothyroxine [Synthroid] 75 mcg PO DAILY@0600 #30 tab 06/24/17 Following Prescrptions Were Given to Patient: Levofloxacin [Levaquin] 750 mg PO QODAY #3 tab Levothyroxine [Synthroid] 75 mcg PO DAILY@0600 #30 tab Primary Care Physician: Jasper Ovalles,Out of [Primary Care Provider] - Please follow up with your Primary Care Physician in: within 2 weeks Please Follow Up With: Nia Cannon MD When: as scheduled for dialysis Please Follow Up With: Iftikhar Miller MD When: 4 weeks Please Follow Up With: Brooklyn Crews, LIN-C When: within 2 weeks with blood sugar log Disposition: Home Minutes spent on discharge:: 25 Patient Condition:: Stable Meaningful Use Info Meaningful Use Diagnoses (Choose all that apply): None applicable Code Visit Inpatient E&M: 91108 Disch Hosp
--- NOTE | 2017-06-24 15:20 | DCINST_ITS ---
- Discharge Diagnoses Current Active Problems: Current Active and Chronic Problems Hyperphosphatemia (Acute) Lactic acidosis (Acute) Abnormal LFTs (Acute) Metabolic acidosis (Acute) Reason(s) for Visit for Discharge Instructions: Lethargy, Shortness of breath You will use the following diet at home:: Calorie/Carbohydrate Controlled ( specify 1200, 1400, etc), Cardiac, Renal (restricted protein/sodium) Your food should be the consistency of: Regular Your liquids should be the consistency of: Regular/Thin Discharge Activity: Return to Normal Activity Additional Instructions: No changes to your medications. Keep a log of your blood sugars and try to follow-up with the nurse practitioner in Endocrinology within 2 weeks. Allergies/Adverse Reactions: Allergies Penicillins [PCN] Allergy (Verified 12/31/16 05:13) Hives Medications to take at Discharge Albuterol Inhaler [Ventolin Hfa] 2 puff INHALATION Q4H PRN PRN 10/28/16 Allopurinol [Zyloprim] 200 mg PO DAILY 10/28/16 Amlodipine [Norvasc] 10 mg PO DAILY 10/28/16 B Complex with Vitamin C [B-Complex Plus Vitamin C] 1 each PO DAILY 10/28/16 Calcium Acetate 667 mg PO TID 10/28/16 Docusate Sodium [Colace] 100 mg PO DAILY 10/28/16 Ergocalciferol [Vitamin D] 50,000 unit PO Q7D 10/28/16 Fluticasone 0.05% [Flonase Nasal [place]] 1 spray NASAL DAILY 10/28/16 Gabapentin [Neurontin] 100 mg PO QHS 10/28/16 Latanoprost 0.005% [Xalatan Opthalmic] 1 drop EACH EYE QHS 10/28/16 Levothyroxine [Synthroid] 50 mcg PO DAILY 10/28/16 Multivitamin/Iron/Folic Acid [Centrum Adults Tablet] 1 each PO DAILY 10/28/16 ProMETHAzine [Phenergan] 25 mg PO Q4H PRN PRN 10/28/16 Venlafaxine XR [Effexor Xr] 150 mg PO DAILY 10/28/16 Insulin Glargine [Lantus SoloStar Pen] 10 units SC QHS 05/17/17 Sevelamer Carbonate [Renvela] 800 mg PO TID 05/17/17 Metoprolol Tartrate [Lopressor (beta dutch)] 25 mg PO BID #60 tab 06/03/17 Levofloxacin [Levaquin] 750 mg PO QODAY #3 tab 06/24/17 Levothyroxine [Synthroid] 75 mcg PO DAILY@0600 #30 tab 06/24/17 The following prescriptions were given: Levofloxacin [Levaquin] 750 mg PO QODAY #3 tab Levothyroxine [Synthroid] 75 mcg PO DAILY@0600 #30 tab Primary Care Physician: Jasper Ovalles,Out of [Primary Care Provider] - Please follow up with your Primary Care Physician in: within 2 weeks Please Follow Up With: Nia Cannon MD When: as scheduled for dialysis Please Follow Up With: Iftikhar Miller MD When: 4 weeks Please Follow Up With: Brooklyn Crews, ACCOUNTS SPECIALIST-C When: within 2 weeks with blood sugar log Proposed Discharge Date: 06/24/17
[2017-06-24] MEDS: Fluticasone 0.05% 1 SPRAY NASAL.SRY NASAL (15:30)
[2017-06-24] MEDS: Allopurinol 100 MG Tablet 200 MG PO (15:32)
[2017-06-24] MEDS: Venlafaxine XR 150 MG Capsule PO (15:32)
[2017-06-24] MEDS: Metoprolol Tartrate 25 MG Tablet PO (15:33)
[2017-06-24] MEDS: amLODIPine 10 MG Tablet PO (15:34)
[2017-06-24] MEDS: Heparin Injection 5,000 UNITS/ML Syringe 5000 UNITS SC (15:34)
[2017-06-24] MEDS: Multivitamins,Ther W-Minerals Tablet 1 TABLET PO (15:34)
[2017-06-24] MEDS: Heparin 10,000 UNITS/10 ML Vial IV (15:35)
[2017-06-24] MEDS: Famotidine 20 MG Tablet PO (15:36)
[2017-06-24] MEDS: Vitamin B Comp W-C Capsule 1 CAP PO (15:37)
--- NOTE | 2017-06-24 15:54 | DIALYSIS ---
HD x 4.5 hours complete. Tolerated tx well. UF of 3500ml. Used right chest wall catheter. Catheter closed with heparin per fill volume. See tx sheet for more details. Report was given to ATUL Crenshaw.
== END 2017-06-24 16:38 | disposition home or self-care (01) | DRG 871 ==
LOC: ED 07:48 → ICU 08:32 → PCU 06-23 12:45
PROVIDERS: Internal Medicine Critical Care Medicine; Admitting Provider Internal Medicine; Emergency Provider Emergency Medicine; Visit Provider Internal Medicine
DX: A41.9 Sepsis, unspecified organism (principal); J96.01 Acute respiratory failure with hypoxia; G93.41 Metabolic encephalopathy; J18.9 Pneumonia, unspecified organism; J96.02 Acute respiratory failure with hypercapnia; E87.2 Acidosis; I12.0 Hypertensive chronic kidney disease with stage 5 chronic kidney disease or end stage renal disease; N18.6 End stage renal disease; D89.0 Polyclonal hypergammaglobulinemia; E10.22 Type 1 diabetes mellitus with diabetic chronic kidney disease; R65.20 Severe sepsis without septic shock; I48.0 Paroxysmal atrial fibrillation; E87.5 Hyperkalemia; Z99.2 Dependence on renal dialysis; D63.1 Anemia in chronic kidney disease; E78.5 Hyperlipidemia, unspecified; E83.39 Other disorders of phosphorus metabolism; F32.9 Major depressive disorder, single episode, unspecified; H40.9 Unspecified glaucoma; E79.0 Hyperuricemia without signs of inflammatory arthritis and tophaceous disease; R94.5 Abnormal results of liver function studies; E83.51 Hypocalcemia; E03.9 Hypothyroidism, unspecified; E10.65 Type 1 diabetes mellitus with hyperglycemia; Z79.4 Long term (current) use of insulin
CPT/HCPCS: 31500; 31720; 36415; 36600; 51702; 71045; 74176; 78452; 80048; 80053; 80061; 82009; 82140; 82550; 82803; 82962; 82977; 83605; 83735; 84100; 84439; 84443; 84478; 84484; 85025; 85610; 85730; 87040; 87077; 87086; 87088; 87493; 87641; 87804; 90937; 92953; 93005; 93017; 93306; 94002; 94003; 94640; 94660; 95831; 97110; 97116; 97162; 97166; 97802; 99251; 99285; A9500; J7030; J7050; A4216; G0257; G0463; J2785; J3490

== ENCOUNTER 2017-10-16 19:53 | Inpatient (IN) | payer OTHER, SELFPAY ==
[2017-10-16] VITALS (9 sets, daily range): BP systolic 138–193; BP diastolic 82–102; PULSE 60–89; RESP 12–20; TEMP 36.6–36.7; O2SAT 93–100; BMI 29.4; BMI 29.5
[2017-10-16 20:01] LABS: Bedside Glucose 283 mg/dL (70-110)
--- NOTE | 2017-10-16 20:19 | EKG12_ITS ---
Test Reason : CONFUSION/WEAKNESS Blood Pressure : / mmHG Vent. Rate : 077 BPM Atrial Rate : 077 BPM P-R Int : 000 ms QRS Dur : 158 ms QT Int : 484 ms P-R-T Axes : 000 118 030 degrees QTc Int : 547 ms Atrial flutter with variable conduction Right bundle branch block Abnormal ECG Confirmed by MARIAH DIXON ([id number]), editor news MARYAN AMBRIZ ([id number]) on 10/28/2017 5:33:06 PM Referred By: JOSE Confirmed By:MARIAH DIXON
--- NOTE | 2017-10-16 20:19 | CT_ITS ---
STUDY: CT BRAIN WITHOUT CONTRAST REASON FOR EXAM: Female, 47 years old. Altered mental status and weakness. RADIATION DOSAGE (If Supplied By Facility): CTDIvol = ( 44.99 ) mGy, DLP = ( 846.73 ) mGycm TECHNIQUE: Transaxial CT imaging of the brain was performed without administration of intravenous contrast material. Individualized dose optimization techniques were used for this CT. COMPARISON: May 26, 2017 FINDINGS: Normal soft tissue structures. Normal calvarium. Normal size ventricles and extra-axial spaces for the patient's age. Normal white matter tracts of the cerebral hemispheres. Normal basal ganglia and thalami. Normal brainstem. Normal cerebellum. There is no intracranial hemorrhage. There are no findings of an acute ischemic infarction. There is opacification of the left maxillary sinus system with a history of chronic sinusitis. CT/Brain/Head without Contrast IMPRESSION: No acute intracranial process. Electronically Signed: Juanita Freedman MD at 21:50 EDT Tel , Service support ,
--- NOTE | 2017-10-16 20:35 | RAD_ITS ---
STUDY: X-RAY CHEST REASON FOR EXAM: Female, 47 years old. Unable to follow directions. Weakness. TECHNIQUE: AP portable COMPARISON: June 21, 2017 FINDINGS: There is a right-sided dialysis catheter in place with its tip within the expected region of the cavoatrial junction. There is no new focal consolidation visualized. Normal size heart. Normal mediastinum and demarcus. Normal visualized pulmonary arteries. Normal visualized aortic arch and descending thoracic aorta. Normal visualized thoracic spine. Normal visualized ribs, clavicles, and shoulders. There is no demonstrated abnormality of the visualized soft tissue structures of the upper abdomen. RAD/Chest 1 View (Portable) IMPRESSION: No acute cardiopulmonary process. Electronically Signed: Juanita Freedman MD at 21:00 EDT Tel , Service support ,
[2017-10-16 20:45] LABS: Partial Thromboplast Time 45.7 Seconds (24.1-36.2); Prothrombin Time (Protime)PT. 36.1 SECONDS (11.7-14.9)
[2017-10-16 20:46] LABS: Allen Test POS; Base Excess -14 mmol/L (-2 to +2); Bicarbonate 11.9 mmol/L (22-26); Blood Gas Specimen Type ART; O2 Delivery Device Room Air; PO2 82 mmHG (75-100); SITE L Radial; SO2 95 % (95-99); Time Given 2036; Total Carbon Dioxide 13 mmol/L; pCO2 24.1 mmHg (35-45)
[2017-10-16 20:52] LABS: Absolute Lymphocyte Count 1.07 X10^3/ul (0.83-4.51); Basophil# 0.01 X10^3/uL; Basophil% 0.1 % (0-1); Hematocrit 33.7 % (37-47); Hemoglobin 11.3 g/dl (12.0-15.0); Lymphocyte # 1.07 X10^3/ul (4.0); Lymphocyte % 7.9 % (19-41); Mean Corp Hgb Conc 33.5 g/gl (32-36); Mean Corpuscular Hgb 30.5 pg (27.0-32.0); Mean Corpuscular Volume 90.8 fL (81-99); Monocyte# 0.49 X10^3/uL; Monocyte% 3.6 % (0-10); Neutrophil # 12.01 X10^3/uL (2.7-7.7); Neutrophil % 88.2 % (47-70); Platelet Count 154 K/mm3 (150-450); RBC Distribution Width CV 17.1 % (11.6-14.6); RBC Distribution Width SD 56.3 fl (35.1-43.9); Red Blood Count 3.71 M/mm3 (4.2-5.4); White Blood Count 13.6 K/mm3 (4.4-11.0)
[2017-10-16 20:53] LABS: International Normalized Ratio 3.6
[2017-10-16 20:56] LABS: ALB/GLOB Ratio 0.9 RATIO (0.9-2.4); AST(SGOT) 183 U/L (15-37); Alanine Aminotransfer ALT/SGPT 130 U/L (13-56); Albumin, Serum 4.1 g/dL (3.2-5.0); Alkaline Phosphatase 338 U/L (45-117); Anion Gap 25 (5-15); BUN 130 mg/dL (7-18); BUN/Creat Ratio 13.3 RATIO (10-20); Calcium,Total 9.2 mg/dL (8.5-10.1); Chloride 86 mmol/L (98-107); Creatinine, Serum 9.79 mg/dL (0.55-1.02); EST Glomerular Filtration Rate 5 mL/min (>60); Est Glom Filt Rate - Afr Amer 6 mL/min (>60); Estimated Creatinine Clearance 7.17 ml/min; Globulin 4.8 g/dL (2.2-4.2); Glucose 270 mg/dL (74-106); Potassium 7.4 mmol/L (3.5-5.1); Protein, Total 8.9 g/dL (6.4-8.2); Sodium Level 123 mmol/L (136-145)
[2017-10-16 20:58] LABS: Lactic Acid 3.3 mmol/L (0.4-2.0)
[2017-10-16] MEDS: Dextrose 50%-Water 25 GM/50 ML DISP.SYRIN IV (21:01)
[2017-10-16 21:02] LABS: Differential Indicated SCAN CRITERIA MET; POSITIVE COUNT NO; POSITIVE DIFFERENTIAL NO; POSITIVE MORPHOLOGY YES
[2017-10-16] MEDS: Sodium Bicarbonate 8.4% 50 ML Syringe 50 MEQ IV (21:03)
--- NOTE | 2017-10-16 21:04 | ED.RN ---
CRITICAL LAB RESULTS GIVEN TO ATUL JEREZ AWARE.
--- NOTE | 2017-10-16 21:50 | ED.RN ---
PT HAS MULTIPLE BRUISING TO BODY LEFT SHOULDER, ARMS, LEFT BREAST, LEFT FOOT 5TH DIGIT, RIGHT FOOT, ABRASIONS TO RIGHT SIDE OF BODY. PT HAS DARK RED/PURPLE AREA TO RIGHT BUTTOCKS. PT'S SPOUSE REPORTED THAT HE FELT COMFORTABLE LEAVING PT AT HOME AND GOING TO WORK TODAY AFTER PT WAS HAVING PERIODS OF CONFUSION SINCE SATURDAY;AND MISSED DIALYSIS LAST SATURDAY AND THIS Saturday10/14/17. PT'S SPOUSE REPORTED THAT PT WAS FOUND ON THE FLOOR TODAY AFTER HE GOT OFF OF WORK SHE ONLY FELL TWO FEET PER SPOUSE. SPOUSE THEN REPORTED THAT HE PICKED PT UP FROM THE FLOOR AND DRESSED HER BEFORE SQUAD ARRIVED SO SHE WAS PRESENTABLE.
[2017-10-16 21:54] LABS: Bacteria 0 SEEN /hpf (None Seen); Mucous, Urine 0 SEEN /hpf (<or=2+); Red Blood Cells-Urine 0 SEEN /hpf (0-5); Squamous Epithelial Cells - UA 0 SEEN /hpf (5-10); White Blood Cells 0 SEEN /hpf (0-5)
[2017-10-16 22:17] LABS: Color, Urine Yellow (Yellow); Glucose, Dipstick 250 mg/dl (Normal); Ketone-Dipstick 5 mg/dl (Negative); Leukocyte Esterase-Dipstick 25 /ul (Negative); Nitrite-Dipstick Negative (Negative); Occult Blood-Urine 50 /ul (Negative); Protein-Dipstick 500 mg/dl (Negative); Specific Gravity, Urine 1.015 (1.002-1.030); Urine Bilirubin Dipstick 1 mg/dL (Negative); Urine Clarity Sl. Cloudy (Clear); Urine Urobilinogen Normal (Normal)
[2017-10-16 22:24] LABS: Amorphous Sediment 1+
--- NOTE | 2017-10-16 22:28 | HP.PCM_ITS ---
Problem List (1) Metabolic encephalopathy Status: Acute (2) Metabolic acidosis Status: Acute (3) Abnormal LFTs Status: Acute (4) Lactic acidosis Status: Acute (5) End stage renal disease on dialysis Status: Chronic (6) Polyclonal gammopathy Status: Chronic (7) PAF (paroxysmal atrial fibrillation) Status: Chronic (8) Glaucoma Status: Chronic Qualifiers: Glaucoma type: unspecified Laterality: unspecified laterality Qualified Code(s): H40.9 - Unspecified glaucoma (9) Depression Status: Chronic Qualifiers: Depression Type: unspecified Qualified Code(s): F32.9 - Major depressive disorder, single episode, unspecified (10) Hypertension Status: Chronic Qualifiers: Hypertension type: essential hypertension Qualified Code(s): I10 - Essential (primary) hypertension (11) Hyperkalemia Status: Acute (12) DM type 1 (diabetes mellitus, type 1) Status: Chronic Qualifiers: Diabetes mellitus complication status: with unspecified complications Qualified Code(s): E10.8 - Type 1 diabetes mellitus with unspecified complications (13) Anemia Status: Chronic Qualifiers: Chronic kidney disease stage: on chronic dialysis History of Present Illness Date of Admission: 10/16/17 Chief Complaint: Missed HD, Weak, Confused The patient is a 47 y/o F w/ PMHx: ESRD on HD following w/ Dr. Tomas, HTN, HLD , Hypothyroidism, Hx Polyclonal gammopathy, PAF on chronic coumadin therapy, Depression and Anxiety, Diabetes mellitus type I, AOCD, History of Clostridium Difficile Colitis who presents to the [facility] ED on 10/16/17 with history per family present of missing dialysis secondary to the holiday and possibly oversleeping and again on day of ED presentation secondary to worsening status with ongoing lethargy, confusion. Family notes that she reported on Saturday generally feeling fatigued and unwell but no specific cough, congestion, dyspnea, nausea, emesis, abdominal pain or diarrhea at that time in the ED work-up included T 97.8, heart rate 77, BP 199/98, respiratory rate 15, 98% on room air, CBC with W BC 13.6, hemoglobin 11.3, platelet 154 with left shift, INR 3.6, ABG with pH 7.3, bicarb 11.9, PCO2 24.1, PO2 82, CMP with sodium 123, potassium 7.4, chloride 86, carbon dioxide 12, anion gap 25, BUN/creatinine 130/9.79, glucose 270, lactic acid 3.3, total bilirubin 3.70, AST/ALT 183/130, alk phos 338, troponin 0 0.020, UA pending upon admission, blood culture ?2 pending per ED, CT brain with no acute intracranial process, chest x-ray with visualized right- sided dialysis catheter with no new focal consolidation, unremarkable. In the emergency room patient administered normal saline, sodium bicarbonate 50 mEq IV ?1, insulin 5 unit IV ?1, dextrose amp 25 g IV ?1, calcium gluconate 1 g IV ?1, aztreonam 2 g IV ?1, vancomycin 1250 mg IV ?1, kayexelate. ED physician contacted Dr. Miller ICU physician and Dr. Purdy, Nephrology. Past Medical History Past Medical History (Chronic Problems): Chronic Problems End stage renal disease on dialysis (Chronic) Polyclonal gammopathy (Chronic) PAF (paroxysmal atrial fibrillation) (Chronic) Glaucoma (Chronic) Depression (Chronic) Hyperuricemia (Chronic) Hypertension (Chronic) DM type 1 (diabetes mellitus, type 1) (Chronic) Anemia (Chronic) Medical History: Medical History End stage renal disease on dialysis (Chronic) N18.6, Z99.2 Polyclonal gammopathy (Chronic) D89.0 Severe sepsis (Acute) A41.9, R65.20 PAF (paroxysmal atrial fibrillation) (Chronic) I48.0 Glaucoma (Chronic) H40.9 Depression (Chronic) F32.9 Hyperuricemia (Chronic) E79.0 Hypertension (Chronic) I10 Metabolic encephalopathy (Acute) G93.41 Hyperkalemia (Acute) E87.5 Acute respiratory failure with hypoxia (Acute) J96.01 DM type 1 (diabetes mellitus, type 1) (Chronic) E10.9 Hyponatremia (Acute) E87.1 Anemia (Chronic) D64.9 CAP (community acquired pneumonia) (Resolved) J18.9 Clostridium difficile enterocolitis (Resolved) A04.72 DKA (diabetic ketoacidoses) (Resolved) E13.10 Human metapneumovirus pneumonia (Resolved) J12.3 Hypercalcemia (Resolved) E83.52 Hypoglycemia (Resolved) E16.2 Malnutrition (Resolved) E46 Pulmonary edema (Resolved) J81.1 Seizure (Resolved) R56.9 ddue to hypoglycemia Warfarin-induced coagulopathy (Resolved) D68.32, T45.515A Allergies Penicillins [PCN] Allergy (Verified 12/31/16 05:13) Hives Home Medications: Ambulatory Orders Medication Instructions Recorded Albuterol Inhaler [Ventolin Hfa] 2 puff INHALATION Q4H PRN PRN 10/28/16 Allopurinol [Zyloprim] 200 mg PO DAILY 10/28/16 Amlodipine [Norvasc] 10 mg PO DAILY 10/28/16 Calcium Acetate 667 mg PO TID 10/28/16 Docusate Sodium [Colace] 100 mg PO DAILY 10/28/16 Ergocalciferol [Vitamin D] 50,000 unit PO Q7D 10/28/16 Fluticasone 0.05% [Flonase Nasal 1 spray NASAL DAILY 10/28/16 [place]] Gabapentin [Neurontin] 100 mg PO QHS 10/28/16 Latanoprost 0.005% [Xalatan 1 drop EACH EYE QHS 10/28/16 Opthalmic] Levothyroxine [Synthroid] 50 mcg PO DAILY 10/28/16 Multivitamin/Iron/Folic Acid 1 each PO DAILY 10/28/16 [Centrum Adults Tablet] Venlafaxine XR [Effexor Xr] 150 mg PO DAILY 10/28/16 proMETHazine tablet [Phenergan 25 mg PO Q4H PRN PRN 10/28/16 tablet] Insulin Glargine [Lantus SoloStar 10 units SC QHS 05/17/17 Pen] Sevelamer Carbonate [Renvela] 800 mg PO TID 05/17/17 Metoprolol Tartrate [Lopressor 25 mg PO BID #60 tab 06/03/17 (beta dutch)] Levothyroxine [Synthroid] 75 mcg PO DAILY@0600 #30 tab 06/24/17 Surgical History: hysterectomy, - - PD catheter placement, tunneled dialysis catheter placement, AVF 06/08/17. Psychiatric History: Anxiety, Depression [employer] History: No pertinent [employer] history Lives: Spouse/ Significant Other, With Family Smoking Status: Former smoker Tobacco Use: Non-smoker Alcohol: None Drugs: None - *Family History Maternal History Items: No pertinent history Paternal History Items: No pertinent history Review of Systems Constitutional: Reports: Anorexia, Malaise, Weakness, Fatigue. Denies: Chills, Fever, Weight Change HEENT: Denies: Head Aches, Sinus Congestion, Sinus Drainage Cardiovascular: Denies: Chest Pain, Palpitations Respiratory: Denies: Cough, Shortness of breath at rest, Sputum production Gastrointestinal: Denies: Abdominal Pain, Nausea, Vomiting Genitourinary: Denies: Dysuria Musculoskeletal: Denies: Joint Pain, Joint Tenderness Skin: Reports: Skin Changes - ROS given per patient altough confused so additionally given per family present.. Denies: Rash, Wounds Neurological: Reports: Confusion. Denies: Focal weakness, Numbness, Tingling Psychiatric: Reports: Anxiety, Depression. Denies: Homicidal Ideations, Suicidal Ideations Hematologic/ Lymphatic: Reports: Anemia, Easy Bruising, Easy Bleeding VTE Information - Inpt Only VTE Present on Admission: No VTE Mechan Device Prophylaxis: SCD's VTE Pharm Prophylaxis ordered?: Yes Subjective: Seated upright in the ED bed, fatigued, anxious, not oriented. Objective: Physical Examination: General: awake, alert, not oriented, confused, intermittently cooperative, seated upright in the ED bed, mildly agitated. Skin: normal color, turgor, no icterus, cyanosis except occasional very staged ecchymoses to the extremities, posterior coccyx region stage I decubitus ulcer. HEENT: AT/NC, EOM difficult to assess secondary to intermittently following exams but suspect intact, PERRLA, severely dry MM, no carotid bruits or JVD noted. Lungs: Diminished breath sounds bilaterally, greater bilateral bases, poor effort, anxious thus not following inspiratory expiratory effort requests, no rales, ronchi or wheezing. Heart: Regular rate and rhythm; no gallop, rub audible, right upper chest dialysis access in place, no marked erythema. Abdomen: soft, NTTP, ND, mildly hyperactive BS, no HSM. Extremities: no cyanosis, clubbing, or edema. Neurological: patient awake, alert, oriented as noted; cognitive function not baseline intact; pupils equally reactive to light and accomodation; cranial nerves II-XII grossly normal, moving all 4 extremities but extremely limited secondary to generalized complaints of discomfort, weakness, lethargy and anxious, strength severely globally decreased secondary to acute presentation. Psychiatric: affect appears anxious, no acute evidence of depressive feelings. - Physical Exam Vital Signs Temp Pulse Resp BP Pulse Ox 97.8 F 89 16 157/102 H 97 10/16/17 19:55 10/16/17 21:19 10/16/17 21:19 10/16/17 21:19 10/16/17 21:19 Oxygen Delivery Method Room Air Weight: 193 lb 9.054 oz Body Mass Index (BMI) 29.4 Finger Stick Blood Glucose 283 Laboratory Tests Past 24 Hrs 10/16/17 10/16/17 10/16/17 20:10 20:10 20:10 WBC 13.6 H RBC 3.71 L Hgb 11.3 L Hct 33.7 L MCV 90.8 MCH 30.5 MCHC 33.5 RDW 17.1 H RDW Differential 56.3 H Plt Count 154 Immature Gran % (Auto) 0.200 Neut % (Auto) 88.2 H Lymph % (Auto) 7.9 L [place] % (Auto) 3.6 Eos % (Auto) 0.0 Baso % (Auto) 0.1 Absolute Neuts (auto) 12.0 H Absolute Lymphs (auto) 1.07 Total Counted Not Reportable Differential Comment PT 36.1 H INR 3.6 H* APTT 45.7 H Specimen Type Sample Site pH Bicarbonate Actual POC Total CO2 Base Excess O2 Saturation ABG pCO2 ABG pO2 Iam Test O2 Delivery Device Blood Gas Notified Whom Blood Gas Notified Time Sodium 123 L Potassium 7.4 H* Chloride 86 L Carbon Dioxide 12.0 L Anion Gap 25 H BUN 130 H* Creatinine 9.79 H* Estim Creat Clear Calc 7.17 Est GFR (MDRD) Af Amer 6 L Est GFR (MDRD) Non-Af 5 L BUN/Creatinine Ratio 13.3 Glucose 270 H Lactic Acid Calcium 9.2 Total Bilirubin 3.70 H AST 183 H ALT 130 H Alkaline Phosphatase 338 H Troponin I 0.020 Total Protein 8.9 H Albumin 4.1 Globulin 4.8 H Albumin/Globulin Ratio 0.9 Urine Color Urine Clarity Urine pH Ur Specific [place] Urine Protein Urine Glucose (UA) Urine Ketones Urine Occult Blood Urine Nitrite Urine Bilirubin Urine Urobilinogen Ur Leukocyte Esterase Urine RBC Urine WBC Ur Squamous Epith Cells Urine Bacteria Urine Mucus 10/16/17 10/16/17 10/16/17 20:10 20:37 21:50 WBC RBC Hgb Hct MCV MCH MCHC RDW RDW Differential Plt Count Immature Gran % (Auto) Neut % (Auto) Lymph % (Auto) [place] % (Auto) Eos % (Auto) Baso % (Auto) Absolute Neuts (auto) Absolute Lymphs (auto) Total Counted Differential Comment PT INR APTT Specimen Type ART Sample Site L Radial pH 7.30 L Bicarbonate Actual 11.9 L POC Total CO2 13 Base Excess -14 L O2 Saturation 95 ABG pCO2 24.1 L ABG pO2 82 Iam Test POS O2 Delivery Device Room Air Blood Gas Notified Whom ED Blood Gas Notified Time 2035 Sodium Potassium Chloride Carbon Dioxide Anion Gap BUN Creatinine Estim Creat Clear Calc Est GFR (MDRD) Af Amer Est GFR (MDRD) Non-Af BUN/Creatinine Ratio Glucose Lactic Acid 3.3 H Calcium Total Bilirubin AST ALT Alkaline Phosphatase Troponin I Total Protein Albumin Globulin Albumin/Globulin Ratio Urine Color Pending Urine Clarity Pending Urine pH Pending Ur Specific [place] Pending Urine Protein Pending Urine Glucose (UA) Pending Urine Ketones Pending Urine Occult Blood Pending Urine Nitrite Pending Urine Bilirubin Pending Urine Urobilinogen Pending Ur Leukocyte Esterase Pending Urine RBC Pending Urine WBC Pending Ur Squamous Epith Cells Pending Urine Bacteria Pending Urine Mucus Pending POC Glucose 10/16/17 19:58 POC Glucose 283 H Assessment/Plan All Active Problems Metabolic acidosis (Acute) Abnormal LFTs (Acute) Lactic acidosis (Acute) Hyperphosphatemia (Acute) Severe sepsis (Acute) Metabolic encephalopathy (Acute) Hyperkalemia (Acute) Acute respiratory failure with hypoxia (Acute) Hyponatremia (Acute) CAP (community acquired pneumonia) (Resolved) Clostridium difficile enterocolitis (Resolved) DKA (diabetic ketoacidoses) (Resolved) Human metapneumovirus pneumonia (Resolved) Hypercalcemia (Resolved) Hypoglycemia (Resolved) Malnutrition (Resolved) Pulmonary edema (Resolved) Seizure (Resolved) Warfarin-induced coagulopathy (Resolved) The patient is a 47 y/o F w/ PMHx: ESRD on HD following w/ Dr. Tomas, HTN, HLD , Hypothyroidism, Hx Polyclonal gammopathy, PAF on chronic coumadin therapy, Depression and Anxiety, Diabetes mellitus type I, AOCD, History of Clostridium Difficile Colitis who presents to the [facility] ED on 10/16/17 with history per family present of missing dialysis secondary to the holiday and possibly oversleeping and again on day of ED presentation secondary to worsening status with ongoing lethargy, confusion. (1) General malaise, lethargy, lactic acidosis with concern for severe sepsis, Possible Aspiration: Unclear etiology, given lethargy and unsafe oral intake, possible aspiration, current ED chest x-ray with no acute process, urinalysis obtained although HD status with no acute findings, did have loose stool in the emergency room prior to Kayexalate administration with history of Clostridium difficile therefore will obtain stool cultures and C. difficile assay, maintain on IV cefepime and IV Flagyl for possible aspiration, trend lactic acid, repeat CBC in a.m., repeat chest x-ray PA and lateral in a.m. if correction following dialysis would consider de-escalation off antibiotic therapy. ICU physician consulted, pending. (2) Hyperkalemia: Admission potassium 7.4, administered calcium gluconate, dextrose amp, insulin 5 units IV ?1, sodium bicarbonate 50 mg 1 IV ?1 in the emergency room, will repeat serial BMP to assure improvement with pending HD upon admission with the ED physician contacted directly to nephrology to arrange upon admission. (3) Hyponatremia, Hypovolemic, Acute: Patient with recent generalized illness, decreased intake for several days per family report with also missed dialysis, admission sodium 123, will gently hydrate and awaiting dialysis to be arranged upon admission per nephrology who is aware. Repeat BMP in a.m. (4) Supratherapeutic INR: Admission INR 3.6, holding Coumadin, repeat INR in a.m. (5) Elevated liver enzymes, bilirubin: Likely secondary to acute presentation with metabolic encephalopathy, acidosis, missed dialysis, total bilirubin 3.70, AST/ALT 183/130, alk phos 338, will continue hydration, pending dialysis, repeat CMP in a.m. Hepatitis panel pending, if remains elevated consider liver ultrasound if appropriate. (6) Encephalopathy, multifactorial: Patient w/ metabolic with anion gap metabolic acidosis, lactic acidemia, as noted end-stage renal disease on dialysis with Ms. sessions, hyperkalemia, hyponatremia with recent poor oral intake. Continue treatment as noted above #1, #2, #3, #4, (7) ESRD: Admission BUN/Cr 130/9.79, missed MD x 2 sessions, Saturday and Saturday, progressively worsening status, similar to prior presentations, misses HD despite strong recommendation otherwise which has also been portrayed several times to family as well. Nephrology consulted, aware of current acute presentation with pending dialysis upon admission per ED discussion with nephrology. (8) Diabetes mellitus type II: Admission glucose 270, family notes was hypoglycemic at home, given lethargy will maintain n.p.o. status, hold home insulin regimen, Accu checks w/ ISS. (9) AOCD: Admission Hgb 11.3, stable, repeat CBC in AM. (10) Hypothyroidism: Continue home synthroid regimen once oral intake safe. (11) Hypertension: Hold oral regimen until mental status improved, PRN hydralazine in the interim. (12) Hyperlipidemia: Not on agent. (13) Anxiety and Depression: Hold home Effexor regimen given acute presentation and unsafe oral intake, restart once appropriate. (14) DVT Prophylaxis: SCDs, holding coumadin w/ supratherapeutic INR. Code Visit Inpatient E&M: 77802 Init Hosp L3
[2017-10-16] MEDS: Sodium Polystyrene Sulfonate 15 GM/60 ML UDC 30 GM PO (22:53)
[2017-10-17] VITALS (41 sets, daily range): BP systolic 156–201; BP diastolic 65–101; PULSE 60–80; RESP 12–25; TEMP 36.4–36.9; O2SAT 91–100
[2017-10-17] MEDS: 0.9% Normal Saline 1,000 ML 100 ML IV ×2 (00:23→09:42)
[2017-10-17 00:26] LABS: Reflex Lactate? Y
[2017-10-17 00:35] LABS: Bedside Glucose 230 mg/dL (70-110)
[2017-10-17 00:45] LABS: Anion Gap 22 (5-15); BUN 131 mg/dL (7-18); Calcium,Total 8.9 mg/dL (8.5-10.1); Chloride 88 mmol/L (98-107); EST Glomerular Filtration Rate 4 mL/min (>60); Est Glom Filt Rate - Afr Amer 5 mL/min (>60); Estimated Creatinine Clearance 6.95 ml/min; Glucose 228 mg/dL (74-106); Magnesium 2.7 mg/dL (1.6-2.6); Phosphorus 9.9 mg/dL (2.5-4.9); Potassium 6.4 mmol/L (3.5-5.1); Sodium Level 127 mmol/L (136-145)
[2017-10-17 00:48] LABS: Lactic Acid 4.7 mmol/L (0.4-2.0)
[2017-10-17] MEDS: Insulin Lispro 100 UNIT/ML INSULN.PEN SC ×4 (01:01→22:06)
[2017-10-17 01:17] LABS: M R Staph aureus DNA By PCR Negative (Negative); Probe Check PASS; Specimen Processing Control PASS
--- NOTE | 2017-10-17 01:32 | NURSING ---
Unable to adequately complete admission assessment and teaching due to patient's confusion and being unable to comprehend.
[2017-10-17] MEDS: Heparin 10,000 UNITS/10 ML Vial IV (02:20)
[2017-10-17] MEDS: CHLORHEXIDINE GLUC 2% CLOTH 1 EACH TOWELETTE TOPICAL (02:26)
--- NOTE | 2017-10-17 02:34 | DIALYSIS ---
Hd x 2 hours complete. Tolerated tx well. UF of 1000ml. Used right chest wall catheter. Catheter closed with heparin per fill volume. See tx sheet for more details. Report was given to ATUL Connor.
[2017-10-17] MEDS: hydrALAZINE 20 MG/ML Vial 10 MG IV ×3 (02:41→23:45)
[2017-10-17] MEDS: 0.9% NaCl Peripheral Flush Adult/Peds IV ×2 (02:42→23:46)
[2017-10-17 03:33] LABS: Lactic Acid 2.9 mmol/L (0.4-2.0)
[2017-10-17 03:57] LABS: Reflex Lactate? Y
[2017-10-17 04:24] LABS: Absolute Lymphocyte Count 1.44 X10^3/ul (0.83-4.51); Absolute Neutrophil Count 9.3 X10^3/uL (2.0-7.7); Absolute Nucleated RBC Count 0.17 10^3/uL (0-5); Basophil# 0.01 X10^3/uL; Basophil% 0.1 % (0-1); Eosinophil# 0.05 X10^3/uL; Eosinophils% 0.4 % (0-5); Hematocrit 29.2 % (37-47); International Normalized Ratio 3.3; Lymphocyte # 1.44 X10^3/ul (4.0); Lymphocyte % 12.8 % (19-41); Mean Corp Hgb Conc 34.2 g/gl (32-36); Mean Corpuscular Hgb 30.4 pg (27.0-32.0); Mean Corpuscular Volume 88.8 fL (81-99); Mean Platelet Vol. 10.9 fl (6.2-12.0); Monocyte# 0.46 X10^3/uL; Monocyte% 4.1 % (0-10); NRBC Flagged by Analyzer 1.5 % (0-5); Neutrophil # 9.27 X10^3/uL (2.7-7.7); Neutrophil % 82.3 % (47-70); POSITIVE COUNT NO; POSITIVE DIFFERENTIAL NO; POSITIVE MORPHOLOGY NO; Platelet Count 130 K/mm3 (150-450); Prothrombin Time (Protime)PT. 33.4 SECONDS (11.7-14.9); RBC Distribution Width SD 54.6 fl (35.1-43.9); Red Blood Count 3.29 M/mm3 (4.2-5.4); White Blood Count 11.3 K/mm3 (4.4-11.0)
[2017-10-17 04:31] LABS: ALB/GLOB Ratio 0.8 RATIO (0.9-2.4); AST(SGOT) 208 U/L (15-37); Alanine Aminotransfer ALT/SGPT 149 U/L (13-56); Albumin, Serum 3.5 g/dL (3.2-5.0); Alkaline Phosphatase 295 U/L (45-117); Anion Gap 21 (5-15); BUN 85 mg/dL (7-18); BUN/Creat Ratio 12.2 RATIO (10-20); Calcium,Total 8.3 mg/dL (8.5-10.1); Chloride 95 mmol/L (98-107); Creatinine, Serum 6.98 mg/dL (0.55-1.02); EST Glomerular Filtration Rate 7 mL/min (>60); Est Glom Filt Rate - Afr Amer 8 mL/min (>60); Estimated Creatinine Clearance 10.05 ml/min; Globulin 4.4 g/dL (2.2-4.2); Glucose 168 mg/dL (74-106); Potassium 4.5 mmol/L (3.5-5.1); Protein, Total 7.9 g/dL (6.4-8.2); Sodium Level 136 mmol/L (136-145)
[2017-10-17 04:48] LABS: Lactic Acid 2.9 mmol/L (0.4-2.0)
[2017-10-17] MEDS: Heparin Injection (Vial) 5,000 UNIT/ML VIAL 5000 UNIT SC (05:11)
[2017-10-17 05:26] LABS: Bedside Glucose 172 mg/dL (70-110)
--- NOTE | 2017-10-17 05:55 | RAD_ITS ---
STUDY: X-RAY CHEST REASON FOR EXAM: Female, 47 years old. Fever. TECHNIQUE: Single AP portable view of the chest. COMPARISON: Comparison is made with prior examination dated October 16, 2017. FINDINGS: A right-sided double-lumen catheter is seen with the tip in the right atrium. EKG electrodes are seen. Limited inspiratory effort. Increased markings at the right lung base suggestive of a right basilar atelectasis and/or early infiltrate. Follow-up is recommended. There is no demonstrated pleural abnormality. There is mild cardiac enlargement. Normal mediastinum and demarcus. Normal visualized pulmonary arteries. Normal visualized aortic arch and descending thoracic aorta. Normal visualized thoracic spine. Normal visualized ribs, clavicles, and shoulders. There is no demonstrated abnormality of the visualized soft tissue structures of the upper abdomen. RAD/Chest 1 View (Portable) IMPRESSION: Limited inspiratory effort. Increased markings at the right lung base suggesting atelectasis and/or early infiltrate. Follow-up is recommended. Electronically Signed: Thuan Benton MD at 8:19 EDT Tel [phone], Service support ,
[2017-10-17 06:50] LABS: Reflex Lactate? Y
[2017-10-17] MEDS: Ipratropium/Albuterol Sulfate 3 ML AMPUL.NEB INHALATION ×3 (06:58→19:05)
--- NOTE | 2017-10-17 07:02 | CPS ---
Pt not able to perform IS or PEP at this time.
--- NOTE | 2017-10-17 07:33 | PCM.CON.CC ---
Problem List (1) Metabolic acidosis Status: Acute (2) Abnormal LFTs Status: Acute (3) Lactic acidosis Status: Acute (4) End stage renal disease on dialysis Status: Chronic (5) Polyclonal gammopathy Status: Chronic (6) Severe sepsis Status: Acute (7) PAF (paroxysmal atrial fibrillation) Status: Chronic (8) Glaucoma Status: Chronic Qualifiers: Glaucoma type: unspecified Laterality: unspecified laterality Qualified Code(s): H40.9 - Unspecified glaucoma (9) Depression Status: Chronic Qualifiers: Depression Type: unspecified Qualified Code(s): F32.9 - Major depressive disorder, single episode, unspecified (10) Hypertension Status: Chronic Qualifiers: Hypertension type: essential hypertension Qualified Code(s): I10 - Essential (primary) hypertension (11) DM type 1 (diabetes mellitus, type 1) Status: Chronic Qualifiers: Diabetes mellitus complication status: with unspecified complications Qualified Code(s): E10.8 - Type 1 diabetes mellitus with unspecified complications (12) Anemia Status: Chronic Qualifiers: Chronic kidney disease stage: on chronic dialysis Reason for Consult Date of Consultation: 10/17/17 Reason for Consultation: Severe sepsis History of Present Illness: The patient is a 47 year old F with past medical history listed below, who presented to [facility] on 10/16/2017 secondary to worsening lethargy and confusion. History is very limited at this time as patient is not able to answer questions and no family is at the bedside. Reportedly, patient has missed the last 3 hemodialysis sessions and presented with confusion. Patient had reportedly not reported any particular symptoms such as cough, congestion, dyspnea, nausea, vomiting, diarrhea or constipation. In the emergency room, patient was noted to be hypertensive. Patient is on anticoagulation secondary to paroxysmal A. fib and INR was therapeutic at 3.6. Significant hyperkalemia was also noted along with lactic acidosis on presentation. Chest x-ray showed no significant infiltrates. In the emergency room, patient was given a hyperglycemic protocol and empiric antibiotics. Patient was then admitted to the intensive care unit for further monitoring. After arrival to the intensive care unit, patient was noted to have C. difficile positive stools. Patient was given IV Flagyl and CO vancomycin. Patient has remained hypertensive, but no fevers or other hemodynamic instability has been noted. Patient is saturating well on room air. Patient did receive 2 hours of hemodialysis overnight out significant improvement in mental status. Further history is unclear at this time. Past Medical History Past Medical History (Chronic Problems): Chronic Problems End stage renal disease on dialysis (Chronic) Polyclonal gammopathy (Chronic) PAF (paroxysmal atrial fibrillation) (Chronic) Glaucoma (Chronic) Depression (Chronic) Hyperuricemia (Chronic) Hypertension (Chronic) DM type 1 (diabetes mellitus, type 1) (Chronic) Anemia (Chronic) Medical History: Medical History End stage renal disease on dialysis (Chronic) N18.6, Z99.2 Polyclonal gammopathy (Chronic) D89.0 Severe sepsis (Acute) A41.9, R65.20 PAF (paroxysmal atrial fibrillation) (Chronic) I48.0 Glaucoma (Chronic) H40.9 Depression (Chronic) F32.9 Hyperuricemia (Chronic) E79.0 Hypertension (Chronic) I10 Metabolic encephalopathy (Acute) G93.41 Hyperkalemia (Acute) E87.5 Acute respiratory failure with hypoxia (Acute) J96.01 DM type 1 (diabetes mellitus, type 1) (Chronic) E10.9 Hyponatremia (Acute) E87.1 Anemia (Chronic) D64.9 CAP (community acquired pneumonia) (Resolved) J18.9 Clostridium difficile enterocolitis (Resolved) A04.72 DKA (diabetic ketoacidoses) (Resolved) E13.10 Human metapneumovirus pneumonia (Resolved) J12.3 Hypercalcemia (Resolved) E83.52 Hypoglycemia (Resolved) E16.2 Malnutrition (Resolved) E46 Pulmonary edema (Resolved) J81.1 Seizure (Resolved) R56.9 ddue to hypoglycemia Warfarin-induced coagulopathy (Resolved) D68.32, T45.515A Allergies Penicillins [PCN] Allergy (Verified 12/31/16 05:13) Hives Home Medications: Ambulatory Orders Medication Instructions Recorded Albuterol Inhaler [Ventolin Hfa] 2 puff INHALATION Q4H PRN PRN 10/28/16 Allopurinol [Zyloprim] 200 mg PO DAILY 10/28/16 Amlodipine [Norvasc] 10 mg PO DAILY 10/28/16 Calcium Acetate 667 mg PO TID 10/28/16 Docusate Sodium [Colace] 100 mg PO DAILY 10/28/16 Ergocalciferol [Vitamin D] 50,000 unit PO Q7D 10/28/16 Fluticasone 0.05% [Flonase Nasal 1 spray NASAL DAILY 10/28/16 [place]] Gabapentin [Neurontin] 100 mg PO QHS 10/28/16 Latanoprost 0.005% [Xalatan 1 drop EACH EYE QHS 10/28/16 Opthalmic] Levothyroxine [Synthroid] 50 mcg PO DAILY 10/28/16 Multivitamin/Iron/Folic Acid 1 each PO DAILY 10/28/16 [Centrum Adults Tablet] Venlafaxine XR [Effexor Xr] 150 mg PO DAILY 10/28/16 proMETHazine tablet [Phenergan 25 mg PO Q4H PRN PRN 10/28/16 tablet] Insulin Glargine [Lantus SoloStar 10 units SC QHS 05/17/17 Pen] Sevelamer Carbonate [Renvela] 800 mg PO TID 05/17/17 Metoprolol Tartrate [Lopressor 25 mg PO BID #60 tab 06/03/17 (beta dutch)] Levothyroxine [Synthroid] 75 mcg PO DAILY@0600 #30 tab 06/24/17 Surgical History: hysterectomy, - - PD catheter placement, tunneled dialysis catheter placement, AVF 06/08/17. Psychiatric History: Anxiety, Depression GLOVE PAIRER History: No pertinent GLOVE PAIRER history Lives: Spouse/ Significant Other, With Family Smoking Status: Former smoker Tobacco Use: Non-smoker Alcohol: None Drugs: None - *Family History Maternal History Items: No pertinent history Paternal History Items: No pertinent history Review of Systems Unable to obtain accurate/complete ROS d/t: Mental status Objective: All imaging was personally reviewed. Chest x-ray this morning does show a possible right middle lobe infiltrate. Initial chest x-ray was within normal limits. Hemodialysis catheter appears to be in appropriate position. - Physical Exam General: No apparent distress, Confused, Disoriented, Lethargic HEENT: Atraumatic, PERRLA, EOMI, Normocephalic, - - No scleral icterus or injection Oral: Moist Mucosa, No Gingival or Mucosal Lesions/ Ulcerations Neck: Supple, No JVD, No Nodes, Trachea Midline Lungs: No rhonchi, No wheeze, No rales, Diminished, - - Symmetric expansion. No dullness to percussion. Cardiovascular: Normal S1, Normal S2, Irregular Rate, Murmur - 3 out of 6 systolic ejection murmur at left sternal border, No rub noted, No Gallop Abdomen: Bowel Sounds Present, Soft, Non Tender, Non-Distended, Obese Extremities: No clubbing, No cyanosis, Capillary Refill Less than 3 Seconds, Edema Skin: No rashes, No breakdown, - - HD cath is clean, dry and intact. Musculoskeletal: No Tenderness to Palpation of Joints or Extremities Lymphatic: No Cervical, Supraclavicular, or Inguinal Adenopathy Neurological: Cranial nerves II-XII grossly intact, Neuro grossly intact, Motor Exam 5/5 strength throughout Psych/Mental Status: Flat Affect, Depressed Vital Signs Temp Pulse Resp BP Pulse Ox 36.8 C 71 15 176/70 H 94 10/17/17 02:33 10/17/17 07:10 10/17/17 06:59 10/17/17 06:00 10/17/17 06:59 Oxygen Delivery Method Room Air Weight: 85.6 kg Intake and Output for Last 24 Hours 10/15/17 10/16/17 10/17/17 23:59 23:59 23:59 Intake Total 1763 / 1763 Output Total 1000 / 1000 Balance 763 / 763 Microbiology Past 72 Hours 10/17/17 00:48 C. difficile DNA Amplification - Final Stool Toxigenic C. difficile DNA Laboratory Tests Past 24 Hrs 10/16/17 10/16/17 10/16/17 23:45 23:55 23:55 WBC RBC Hgb Hct MCV MCH MCHC RDW RDW Differential Plt Count MPV Immature Gran % (Auto) Neut % (Auto) Lymph % (Auto) [place] % (Auto) Eos % (Auto) Baso % (Auto) Absolute Neuts (auto) Absolute Lymphs (auto) Total Counted Nucleated RBC % Diff Path Review Absolute Retic PT INR Sodium 127 L Potassium 6.4 H* Chloride 88 L Carbon Dioxide 17.0 L Anion Gap 22 H BUN 131 H* Creatinine 10.10 H* Estim Creat Clear Calc 6.95 Est GFR (MDRD) Af Amer 5 L Est GFR (MDRD) Non-Af 4 L BUN/Creatinine Ratio 13.0 Glucose 228 H Lactic Acid 4.7 H* Calcium 8.9 Phosphorus 9.9 H* Magnesium 2.7 H Total Bilirubin AST ALT Alkaline Phosphatase Total Protein Albumin Globulin Albumin/Globulin Ratio Hepatitis A IgM Ab Hepatitis A Ab Total Hep Bs Antigen Hep B Core Total Ab Hep B Core IgM Ab Hepatitis C Comment MRSA (PCR) Negative 10/16/17 10/17/17 10/17/17 23:55 02:45 03:50 WBC RBC Hgb Hct MCV MCH MCHC RDW RDW Differential Plt Count MPV Immature Gran % (Auto) Neut % (Auto) Lymph % (Auto) Valley % (Auto) Eos % (Auto) Baso % (Auto) Absolute Neuts (auto) Absolute Lymphs (auto) Total Counted Nucleated RBC % Diff Path Review Absolute Retic PT 33.4 H INR 3.3 Sodium Potassium Chloride Carbon Dioxide Anion Gap BUN Creatinine Estim Creat Clear Calc Est GFR (MDRD) Af Amer Est GFR (MDRD) Non-Af BUN/Creatinine Ratio Glucose Lactic Acid 2.9 H Calcium Phosphorus Magnesium Total Bilirubin AST ALT Alkaline Phosphatase Total Protein Albumin Globulin Albumin/Globulin Ratio Hepatitis A IgM Ab Pending Hepatitis A Ab Total Pending Hep Bs Antigen Pending Hep B Core Total Ab Pending Hep B Core IgM Ab Pending Hepatitis C Comment Pending MRSA (PCR) 10/17/17 10/17/17 10/17/17 03:50 03:50 04:15 WBC 11.3 H RBC 3.29 L Hgb 10.0 L Hct 29.2 L MCV 88.8 MCH 30.4 MCHC 34.2 RDW 17.0 H RDW Differential 54.6 H Plt Count 130 L MPV 10.9 Immature Gran % (Auto) 0.300 Neut % (Auto) 82.3 H Lymph % (Auto) 12.8 L Valley % (Auto) 4.1 Eos % (Auto) 0.4 Baso % (Auto) 0.1 Absolute Neuts (auto) 9.3 H Absolute Lymphs (auto) 1.44 Total Counted Not Reportable Nucleated RBC % 1.5 Diff Path Review May foll Absolute Retic 0.17 PT INR Sodium 136 Potassium 4.5 Chloride 95 L Carbon Dioxide 20.0 L Anion Gap 21 H BUN 85 H Creatinine 6.98 H Estim Creat Clear Calc 10.05 Est GFR (MDRD) Af Amer 8 L Est GFR (MDRD) Non-Af 7 L BUN/Creatinine Ratio 12.2 Glucose 168 H Lactic Acid 2.9 H Calcium 8.3 L Phosphorus Magnesium Total Bilirubin 2.70 H AST 208 H ALT 149 H Alkaline Phosphatase 295 H Total Protein 7.9 Albumin 3.5 Globulin 4.4 H Albumin/Globulin Ratio 0.8 L Hepatitis A IgM Ab Hepatitis A Ab Total Hep Bs Antigen Hep B Core Total Ab Hep B Core IgM Ab Hepatitis C Comment MRSA (PCR) POC Glucose 10/17/17 10/17/17 05:09 00:19 POC Glucose 172 H 230 H Clinical Impression(s) from Imaging Studies Brain CT 10/16/17 20:19 IMPRESSION: No acute intracranial process. Electronically Signed: Juanita Freedman MD at 21:50 EDT Tel , Service support , Chest X-Ray 10/16/17 20:35 IMPRESSION: No acute cardiopulmonary process. Electronically Signed: Juanita Freedman MD at 21:00 EDT Tel , Service support , Assessment/Plan RECOMMENDATIONS: 1. Continue with C. difficile therapy 2. Dialysis per nephrology 3. Hydralazine and labetalol can be used if blood pressure not improved after hemodialysis 4. Delirium protocol IMPRESSIONS: 1. Severe sepsis secondary to C. difficile colitis Patient presented with severe sepsis and is now found to have C. difficile colitis. Patient has had C. difficile in the past. Some concern for mental status as patient cannot take p.o. vancomycin. Patient is on IV Flagyl and CO vancomycin. Will transition to p.o. vancomycin if patient able to tolerate p.o. in the near future. Continue to monitor for complications. 2. Metabolic encephalopathy secondary to uncontrolled end-stage renal disease With multiple electrolyte abnormalities secondary to missing hemodialysis. Patient did have hemodialysis last night without significant improvement in mental status. Patient is on appropriate antibiotics for severe sepsis. Patient likely to have hemodialysis today, but deferred to nephrology. Continue with delirium protocol. 3. Hyponatremia/hyperkalemia/end-stage renal disease with noncompliance Reportedly to have hemodialysis today. Labs are much improved from her hesitation. Patient does have some elevation of liver enzymes, but this may be secondary to hepatic congestion. We will continue to monitor. 4. Diabetes mellitus type 2 Once sugars are elevated at this time. Will continue to use sliding scale insulin for now given n.p.o. status. 5. Hypertensive urgency She with noncompliance with therapy for end-stage renal disease. High clinical suspicion for volume overload leading to elevated blood pressures. Nephrology is consulted. If patient continues to have difficulties following a full hemodialysis session, initiation of antihypertensives would be indicated. No indication of complications of elevated blood pressure at this time to indicate need for more aggressive therapy. 6. Hyperlipidemia/anxiety/depression/history of noncompliance/paroxysmal A. fib/moderate pulmonary hypertension Complicates care, management, recovery and prognosis. Patient is anticoagulated. Would hold on further Coumadin therapy as patient will likely have decreased clearance given antibiotic therapy. Patient is currently rate controlled. Code Visit Inpatient E&M: 63833 Init Hosp L3
--- NOTE | 2017-10-17 09:25 | CASEMGMT ---
SW participated in ICU rounds this morning. As per Dr. Miller, pt has missed the last three dialysis treatments. As per RN, pt has bruising all over her body. Pt is not able to speak w/SW today, as she is lethargic. SW will speak w/pt when pt is able. SHARLA Aguilar, CUSTOMER ENERGY SPECIALIST
[2017-10-17] MEDS: Menthol/Lanolin/Calamine/Znox 113 GM Tube 1 APPLIC TOPICAL ×4 (09:42→22:06)
--- NOTE | 2017-10-17 10:31 | PCM.PN.HOSP ---
Subjective: CC: Acute mental status change, metabolic derangement Objective: This is a 47-year-old female who missed dialysis and presented with acute encephalopathy from uremia, hyperkalemia , hyperglycemia and diarrhea from C. difficile. She Underwent hemodialysis last night, she is now alert and oriented. Vitals/I&O's: Vital Signs Temp Pulse Resp BP Pulse Ox 98.2 F 68 16 164/78 H 91 10/17/17 08:00 10/17/17 09:00 10/17/17 09:00 10/17/17 09:00 10/17/17 09:00 Oxygen Delivery Method Room Air Weight: 85.6 kg Intake and Output for Last 24 Hours 10/15/17 10/16/17 10/17/17 23:59 23:59 23:59 Intake Total 1763 / 1763 Output Total 1000 / 1000 Balance 763 / 763 General: Alert, Oriented x3 Oral: Moist Mucosa Neck: Supple, No JVD Lungs: Clear to auscultation, No rhonchi, No wheeze, No rales Cardiovascular: Regular rate, Regular Rhythm, Normal S1, Normal S2 Abdomen: Bowel Sounds Present, Soft, Non Tender Extremities: No edema Neurological: Cranial nerves II-XII grossly intact, Motor Exam 5/5 strength throughout Microbiology Past 72 Hours 10/17/17 00:48 Stool Enteric Bacteriology - Final 10/17/17 00:48 Stool C. difficile DNA Amplification - Final Toxigenic C. difficile DNA Laboratory Results 10/16/17 23:45: MRSA (PCR) Negative 10/16/17 23:55: Sodium 127 L, Potassium 6.4 H*, Chloride 88 L, Carbon Dioxide 17.0 L, Anion Gap 22 H, BUN 131 H*, Creatinine 10.10 H*, Estim Creat Clear Calc 6.95, Est GFR (MDRD) Af Amer 5 L, Est GFR (MDRD) Non-Af 4 L, BUN/Creatinine Ratio 13.0, Glucose 228 H, Calcium 8.9, Phosphorus 9.9 H*, Magnesium 2.7 H 10/16/17 23:55: Lactic Acid 4.7 H* 10/16/17 23:55: Hepatitis A IgM Ab Pending, Hepatitis A Ab Total Pending, Hep Bs Antigen Pending, Hep B Core Total Ab Pending, Hep B Core IgM Ab Pending, Hepatitis C Comment Pending 10/17/17 00:19: POC Glucose 230 H 10/17/17 02:45: Lactic Acid 2.9 H 10/17/17 03:50: PT 33.4 H, INR 3.3 10/17/17 03:50: Sodium 136, Potassium 4.5, Chloride 95 L, Carbon Dioxide 20.0 L, Anion Gap 21 H, BUN 85 H, Creatinine 6.98 H, Estim Creat Clear Calc 10.05, Est GFR (MDRD) Af Amer 8 L, Est GFR (MDRD) Non-Af 7 L, BUN/Creatinine Ratio 12.2, Glucose 168 H, Calcium 8.3 L, Total Bilirubin 2.70 H, AST 208 H, ALT 149 H, Alkaline Phosphatase 295 H, Total Protein 7.9, Albumin 3.5, Globulin 4.4 H, Albumin/Globulin Ratio 0.8 L 10/17/17 03:50: WBC 11.3 H, RBC 3.29 L, Hgb 10.0 L, Hct 29.2 L, MCV 88.8, MCH 30.4, MCHC 34.2, RDW 17.0 H, RDW Differential 54.6 H, Plt Count 130 L, MPV 10.9, Immature Gran % (Auto) 0.300, Neut % (Auto) 82.3 H, Lymph % (Auto) 12.8 L, [place] % (Auto) 4.1, Eos % (Auto) 0.4, Baso % (Auto) 0.1, Absolute Neuts (auto) 9.3 H, Absolute Lymphs (auto) 1.44, Total Counted Not Reportable, Nucleated RBC % 1.5, Diff Path Review September foll, Absolute Retic 0.17 10/17/17 04:15: Lactic Acid 2.9 H 10/17/17 05:09: POC Glucose 172 H Current Medications Acetaminophen (Tylenol) 650 mg RECTAL Q4H PRN PRN PRN Reason: fever, pain Al Hydroxide/Mg Hydroxide (Mylanta Ii) 30 ml PO Q6H PRN PRN PRN Reason: Gastric burning Albuterol Sulfate (Ventolin Aerosols) 2.5 mg INHALATION Q2H PRN PRN PRN Reason: dyspnea, wheezing Albuterol/Ipratropium (Duoneb) 3 ml INHALATION Q6HWA.RT [place] Last Admin: 10/17/17 06:58 Dose: 3 ml Calamine/Phenol (Calmoseptine Ointment) 1 applic TOPICAL 4X/DAY [place] PRN Reason: Protocol Last Admin: 10/17/17 09:42 Dose: 1 applicatio Chlorhexidine Gluconate () 1 each TOPICAL DAILY [facility] Last Admin: 10/17/17 02:26 Dose: 1 each Fluticasone Propionate (Flonase Nasal [place]) 1 spray NASAL DAILY [facility] Last Admin: 10/17/17 09:47 Dose: Not Given Heparin Sodium (Porcine) (Heparin Na) 5,000 unit SC Q8 [facility] Last Admin: 10/17/17 05:11 Dose: 5,000 units Heparin Sodium (Porcine) () 2,500 units IV UD PRN PRN Reason: HEPARIN FLUSH Hydralazine HCl (Apresoline Iv) 10 mg IV Q4H PRN PRN PRN Reason: SBP > 160 Last Admin: 10/17/17 07:10 Dose: 10 mg Sodium Chloride () 1,000 mls @ 100 mls/hr IV .Q10H [facility] Last Admin: 10/17/17 09:42 Dose: 100 mls/hr Pantoprazole Sodium 40 mg/ (Sodium Chloride) 110 mls @ 330 mls/hr IV Q12 [facility] Last Admin: 10/17/17 09:43 Dose: 330 mls/hr Sodium Chloride () 250 mls @ 15 mls/hr IV .[id number] PRN PRN Reason: SALINE FLUSH Metronidazole (Flagyl) 500 mg in 100 mls @ 100 mls/hr IV Q12 [facility] Last Admin: 10/17/17 10:13 Dose: 100 mls/hr Vancomycin HCl 500 mg/ Sodium (Chloride) 110 mls @ 440 mls/hr RECTAL Q6H [facility] Last Admin: 10/17/17 05:12 Dose: 440 mls/hr Insulin Human Lispro (Humalog Kwikpen (Bkc)) 0 unit SC Q6 [facility] PRN Reason: Protocol Last Admin: 10/17/17 05:11 Dose: 1 u Latanoprost (Xalatan Opthalmic) 1 drop EACH EYE QHS [facility] Magnesium Hydroxide (Milk Of Magnesia) 30 ml PO DAILY PRN PRN PRN Reason: Constipation Ondansetron HCl (Zofran) 4 mg IV Q8H PRN PRN PRN Reason: NAUSEA Pharmacy Profile Note () 1 each NOTE X1 PRN PRN Reason: NOT SPECIFIED Sodium Chloride () 5 - 30 ml IV UD PRN PRN Reason: SALINE FLUSH Last Admin: 10/17/17 02:42 Dose: 20 ml Sodium Chloride () 10 ml IV UD PRN PRN Reason: Dialysis Catheter Flush Medical Necessity - Tobacco Use Smoking Status: Former smoker Tobacco Use: Non-smoker Assessment/Plan All Active Problems Metabolic acidosis (Acute) Abnormal LFTs (Acute) Lactic acidosis (Acute) Hyperphosphatemia (Acute) Severe sepsis (Acute) Metabolic encephalopathy (Acute) Hyperkalemia (Acute) Acute respiratory failure with hypoxia (Acute) Hyponatremia (Acute) CAP (community acquired pneumonia) (Resolved) Clostridium difficile enterocolitis (Resolved) DKA (diabetic ketoacidoses) (Resolved) Human metapneumovirus pneumonia (Resolved) Hypercalcemia (Resolved) Hypoglycemia (Resolved) Malnutrition (Resolved) Pulmonary edema (Resolved) Seizure (Resolved) Warfarin-induced coagulopathy (Resolved) 1. Acute encephalopathy, metabolic; improving. 2. Severe hyperkalemia due to end-stage renal disease with missed dialysis; has been treated. 3. End-stage renal disease; nephrology consulted for inpatient hemodialysis. 4. DM type II with hyperglycemia 5. acute Hepatitis; vital hepatitis profile was ordered and is pending, would avoid potential hepatotoxic agents. 6. Recurrent C. difficile infection; we will continue on oral vancomycin and discontinue Flagyl for now. 7. Metabolic acidosis secondary to #3, improved with hemodialysis. 8. Hypothyroidism; she is on Synthroid. 9. PAF on chronic Coumadin , INR is 3.3 today, we will dose Coumadin accordingly. Code Visit Inpatient E&M: 18785 Subs Hosp L3
[2017-10-17 11:35] LABS: Bedside Glucose 138 mg/dL (70-110)
--- NOTE | 2017-10-17 14:21 | NURSING ---
HD in progress
[2017-10-17 14:29] LABS: Pathologist Review Reviewed
--- NOTE | 2017-10-17 16:07 | ED.VISSUMM ---
- ER Visit Summary Date of Service: 10/16/17 Chief Complaint: Sick History of Present Illness: The patient is a 47 F who skipped dialysis over the last 2 sessions. Her is with her and provides the history. She was not feeling well and missed dialysis. Today she is very tired and minimally responsive. She has a history of diabetes, hypertension, end-stage renal disease, sepsis, encephalopathy, and acute respiratory failure secondary to hypoxia. Physical Examination: Vital signs unremarkable. Afebrile. GCS is 14. Head and neck atraumatic. Heart regular. Lungs clear. Abdomen soft. Skin appears normal except for sacral decubitus ulcer. She is alert but not oriented. Test Results: EKG showed sinus rhythm at a rate of 77. Chest x-ray unremarkable. CT head unremarkable. White count 13.6. Chemistry panel reflects her end-stage renal disease. Hepatic enzymes elevated. Troponin normal and lactate 3.3. Cultures pending. Potassium was 7.4. Emergency Department Course and Treatment: Patient was placed on a monitor. She was given calcium, dextrose, insulin, bicarb for EKG Is consistent with hyperkalemia. Patient was covered for sepsis with Azactam and vancomycin. Patient had gradual and continuous improvement throughout her stay. I discussed her case with nephrology, critical care, and the hospitalist and she will be admitted to the ICU. Treatment Plan: As above Disposition: Admission Impression: 1. Encephalopathy 2. Hyperkalemia 3. Severe sepsis 4. End-stage renal disease ED summary was not dictated during the patient's stay and it was completed on November 02. This note was generated with Smart [employer] dictation software. It may contain incorrect words, spelling, and punctuation that were not noted in review of the chart prior to signing ED Disposition - Plan for ED Patient: Disposition: Acute Care Hospital [facility] Chief Complaint: Weakness
--- NOTE | 2017-10-17 16:44 | PCM.CONS.R ---
Problem List (1) End stage renal disease on dialysis Status: Chronic Consultation - Renal 10/17/17 PCP/ Referring MD: Requesting physician: ESRD Primary care physician: Out of Town Doctor Reason for Consultation:: ESRD - History of Present Illness History of Present Illness: The patient is a 47 year old F well known to us ESRD on HD MWF schedule last HD was saturday last week access is right IJ TDC. had a left arm AVF which is not ready yet apparently missed dialysis for 5 days in a row came in fairly azotemic and hyperkalemic was dialyzed emergently last night currently she is alert and awake diagnosed with C Diff colitis - Allergies Allergies: Allergies Penicillins [PCN] Allergy (Verified 12/31/16 05:13) Hives - Current Medications Current Medications: Current Medications Acetaminophen (Tylenol) 650 mg RECTAL Q4H PRN PRN PRN Reason: fever, pain Al Hydroxide/Mg Hydroxide (Mylanta Ii) 30 ml PO Q6H PRN PRN PRN Reason: Gastric burning Albuterol Sulfate (Ventolin Aerosols) 2.5 mg INHALATION Q2H PRN PRN PRN Reason: dyspnea, wheezing Albuterol/Ipratropium (Duoneb) 3 ml INHALATION Q6HWA.RT [place] Last Admin: 10/17/17 14:01 Dose: 3 ml Allopurinol (Zyloprim) 200 mg PO DAILYCM [place] Amlodipine Besylate (Norvasc) 10 mg PO DAILY [place] Calamine/Phenol (Calmoseptine Ointment) 1 applic TOPICAL 4X/DAY [place] PRN Reason: Protocol Last Admin: 10/17/17 13:03 Dose: 1 applicatio Calcium Acetate (Phoslo Gel Cap) 667 mg PO TIDCM [facility] Chlorhexidine Gluconate () 1 each TOPICAL DAILY [facility] Last Admin: 10/17/17 02:26 Dose: 1 each Ergocalciferol (Vitamin D) 50,000 unit PO Q7D [facility] Fluticasone Propionate (Flonase Nasal [place]) 1 spray NASAL DAILY [facility] Last Admin: 10/17/17 09:47 Dose: Not Given Gabapentin (Neurontin) 100 mg PO QHS [facility] Heparin Sodium (Porcine) () 2,500 units IV UD PRN PRN Reason: HEPARIN FLUSH Hydralazine HCl (Apresoline Iv) 10 mg IV Q4H PRN PRN PRN Reason: SBP > 160 Last Admin: 10/17/17 07:10 Dose: 10 mg Sodium Chloride () 1,000 mls @ 100 mls/hr IV .Q10H [facility] Last Admin: 10/17/17 09:42 Dose: 100 mls/hr Pantoprazole Sodium 40 mg/ (Sodium Chloride) 110 mls @ 330 mls/hr IV Q12 [facility] Last Admin: 10/17/17 09:43 Dose: 330 mls/hr Sodium Chloride () 250 mls @ 15 mls/hr IV .[id number] PRN PRN Reason: SALINE FLUSH Insulin Detemir (Levemir (Bkc)) 10 units SC QHS [place] Insulin Human Lispro (Humalog Kwikpen (Bkc)) 0 unit SC ACHS [place] PRN Reason: Protocol Latanoprost (Xalatan Opthalmic) 1 drop EACH EYE QHS [facility] Levothyroxine Sodium (Synthroid) 75 mcg PO DAILY@0600 [facility] Magnesium Hydroxide (Milk Of Magnesia) 30 ml PO DAILY PRN PRN PRN Reason: Constipation Metoprolol Tartrate (Lopressor (Beta Antony)) 25 mg PO BID [facility] Ondansetron HCl (Zofran) 4 mg IV Q8H PRN PRN PRN Reason: NAUSEA Sevelamer Carbonate (Renvela) 800 mg PO TIDCM [facility] Sodium Chloride () 5 - 30 ml IV UD PRN PRN Reason: SALINE FLUSH Last Admin: 10/17/17 02:42 Dose: 20 ml Sodium Chloride () 10 ml IV UD PRN PRN Reason: Dialysis Catheter Flush Vancomycin HCl (Vancomycin 125mg/5ml Susp) 125 mg PO Q6 [facility] Last Admin: 10/17/17 13:03 Dose: 125 mg Venlafaxine HCl (Effexor Xr) 150 mg PO DAILY [facility] - Past Medical History Past Medical History (Chronic Problems): Chronic Problems End stage renal disease on dialysis (Chronic) Polyclonal gammopathy (Chronic) PAF (paroxysmal atrial fibrillation) (Chronic) Glaucoma (Chronic) Depression (Chronic) Hyperuricemia (Chronic) Hypertension (Chronic) DM type 1 (diabetes mellitus, type 1) (Chronic) Anemia (Chronic) - Past Surgical History Surgical History: hysterectomy, - - PD catheter placement, tunneled dialysis catheter placement, AVF 06/08/17. - Social History Smoking Status: Former smoker Alcohol: None Drugs: None - Family History Maternal History Items: No pertinent history Paternal History Items: No pertinent history Review of Systems Constitutional: Denies: Chills, Fever, Weight Change HEENT: Denies: Head Aches, Sinus Congestion, Sinus Drainage Cardiovascular: Denies: Chest Pain, Palpitations Respiratory: Denies: Cough, Shortness of breath at rest, Sputum production Gastrointestinal: Denies: Abdominal Pain, Nausea, Vomiting Genitourinary: Denies: Dysuria Musculoskeletal: Denies: Joint Pain, Joint Tenderness Skin: Denies: Rash, Wounds Neurological: Denies: Numbness, Tingling, Focal weakness Psychiatric: Denies: Anxiety, Depression, Homicidal Ideations, Suicidal Ideations Hematologic/ Lymphatic: Denies: Easy Bruising, Easy Bleeding - Physical Exam General: Alert, Oriented x3, Cooperative HEENT: Atraumatic, PERRLA, EOMI, Normocephalic Neck: Supple, No JVD, Negative Carotid Bruits Lungs: Clear to auscultation, Normal air movement Cardiovascular: Regular rate, No murmurs Abdomen: Bowel Sounds Present, Soft, Non Tender Extremities: No edema, Capillary Refill Less than 3 Seconds Skin: No rashes, No breakdown Musculoskeletal: No Tenderness to Palpation of Joints or Extremities Neurological: Cranial nerves II-XII grossly intact Psych/Mental Status: Normal Affect, Appropriate Vital Signs Temp Pulse Resp BP Pulse Ox 98.5 F 68 19 H 186/84 H 96 10/17/17 14:15 10/17/17 15:13 10/17/17 15:00 10/17/17 15:00 10/17/17 15:00 Oxygen Delivery Method Room Air Weight: 85.6 kg Intake and Output for Last 24 Hours 10/15/17 10/16/17 10/17/17 23:59 23:59 23:59 Intake Total 2617 / 2617 Output Total 1000 / 1000 Balance 1617 / 1617 Microbiology Past 72 Hours 10/17/17 00:48 Enteric Bacteriology - Final Stool 10/17/17 00:48 C. difficile DNA Amplification - Final Stool Toxigenic C. difficile DNA Laboratory Tests Past 24 Hrs 10/16/17 10/16/17 10/16/17 23:45 23:55 23:55 WBC RBC Hgb Hct MCV MCH MCHC RDW RDW Differential Plt Count MPV Immature Gran % (Auto) Neut % (Auto) Lymph % (Auto) [place] % (Auto) Eos % (Auto) Baso % (Auto) Absolute Neuts (auto) Absolute Lymphs (auto) Total Counted Nucleated RBC % Diff Path Review Absolute Retic PT INR Sodium 127 L Potassium 6.4 H* Chloride 88 L Carbon Dioxide 17.0 L Anion Gap 22 H BUN 131 H* Creatinine 10.10 H* Estim Creat Clear Calc 6.95 Est GFR (MDRD) Af Amer 5 L Est GFR (MDRD) Non-Af 4 L BUN/Creatinine Ratio 13.0 Glucose 228 H Lactic Acid 4.7 H* Calcium 8.9 Phosphorus 9.9 H* Magnesium 2.7 H Total Bilirubin AST ALT Alkaline Phosphatase Total Protein Albumin Globulin Albumin/Globulin Ratio Hepatitis A IgM Ab Hepatitis A Ab Total Hep Bs Antigen Hep B Core Total Ab Hep B Core IgM Ab Hepatitis C Comment MRSA (PCR) Negative 10/16/17 10/17/17 10/17/17 23:55 02:45 03:50 WBC RBC Hgb Hct MCV MCH MCHC RDW RDW Differential Plt Count MPV Immature Gran % (Auto) Neut % (Auto) Lymph % (Auto) [place] % (Auto) Eos % (Auto) Baso % (Auto) Absolute Neuts (auto) Absolute Lymphs (auto) Total Counted Nucleated RBC % Diff Path Review Absolute Retic PT 33.4 H INR 3.3 Sodium Potassium Chloride Carbon Dioxide Anion Gap BUN Creatinine Estim Creat Clear Calc Est GFR (MDRD) Af Amer Est GFR (MDRD) Non-Af BUN/Creatinine Ratio Glucose Lactic Acid 2.9 H Calcium Phosphorus Magnesium Total Bilirubin AST ALT Alkaline Phosphatase Total Protein Albumin Globulin Albumin/Globulin Ratio Hepatitis A IgM Ab Pending Hepatitis A Ab Total Pending Hep Bs Antigen Pending Hep B Core Total Ab Pending Hep B Core IgM Ab Pending Hepatitis C Comment Pending MRSA (PCR) 10/17/17 10/17/17 10/17/17 03:50 03:50 04:15 WBC 11.3 H RBC 3.29 L Hgb 10.0 L Hct 29.2 L MCV 88.8 MCH 30.4 MCHC 34.2 RDW 17.0 H RDW Differential 54.6 H Plt Count 130 L MPV 10.9 Immature Gran % (Auto) 0.300 Neut % (Auto) 82.3 H Lymph % (Auto) 12.8 L [place] % (Auto) 4.1 Eos % (Auto) 0.4 Baso % (Auto) 0.1 Absolute Neuts (auto) 9.3 H Absolute Lymphs (auto) 1.44 Total Counted Not Reportable Nucleated RBC % 1.5 Diff Path Review Reviewed Absolute Retic 0.17 PT INR Sodium 136 Potassium 4.5 Chloride 95 L Carbon Dioxide 20.0 L Anion Gap 21 H BUN 85 H Creatinine 6.98 H Estim Creat Clear Calc 10.05 Est GFR (MDRD) Af Amer 8 L Est GFR (MDRD) Non-Af 7 L BUN/Creatinine Ratio 12.2 Glucose 168 H Lactic Acid 2.9 H Calcium 8.3 L Phosphorus Magnesium Total Bilirubin 2.70 H AST 208 H ALT 149 H Alkaline Phosphatase 295 H Total Protein 7.9 Albumin 3.5 Globulin 4.4 H Albumin/Globulin Ratio 0.8 L Hepatitis A IgM Ab Hepatitis A Ab Total Hep Bs Antigen Hep B Core Total Ab Hep B Core IgM Ab Hepatitis C Comment MRSA (PCR) POC Glucose 10/17/17 10/17/17 10/17/17 11:15 05:09 00:19 POC Glucose 138 H 172 H 230 H Assessment/Plan All Active Problems Metabolic acidosis (Acute) Abnormal LFTs (Acute) Lactic acidosis (Acute) Hyperphosphatemia (Acute) Severe sepsis (Acute) Metabolic encephalopathy (Acute) Hyperkalemia (Acute) Acute respiratory failure with hypoxia (Acute) Hyponatremia (Acute) CAP (community acquired pneumonia) (Resolved) Clostridium difficile enterocolitis (Resolved) DKA (diabetic ketoacidoses) (Resolved) Human metapneumovirus pneumonia (Resolved) Hypercalcemia (Resolved) Hypoglycemia (Resolved) Malnutrition (Resolved) Pulmonary edema (Resolved) Seizure (Resolved) Warfarin-induced coagulopathy (Resolved) ESRD . HD today. seen on HD. see orders/flowsheets Hyperkalemia. HD as above HTN. usually improved with fluids removal. currently around 165 systolic discussed with staff
--- NOTE | 2017-10-17 16:47 | CON.PCM_ITS ---
Problem List (1) End stage renal disease on dialysis Status: Chronic Consultation - Renal 10/17/17 PCP/ Referring MD: Requesting physician: ESRD Primary care physician: Out of Town Doctor Reason for Consultation:: ESRD - History of Present Illness History of Present Illness: The patient is a 47 year old F well known to us ESRD on HD MWF schedule last HD was saturday last week access is right IJ TDC. had a left arm AVF which is not ready yet apparently missed dialysis for 5 days in a row came in fairly azotemic and hyperkalemic was dialyzed emergently last night currently she is alert and awake diagnosed with C Diff colitis - Allergies Allergies: Allergies Penicillins [PCN] Allergy (Verified 12/31/16 05:13) Hives - Current Medications Current Medications: Current Medications Acetaminophen (Tylenol) 650 mg RECTAL Q4H PRN PRN PRN Reason: fever, pain Al Hydroxide/Mg Hydroxide (Mylanta Ii) 30 ml PO Q6H PRN PRN PRN Reason: Gastric burning Albuterol Sulfate (Ventolin Aerosols) 2.5 mg INHALATION Q2H PRN PRN PRN Reason: dyspnea, wheezing Albuterol/Ipratropium (Duoneb) 3 ml INHALATION Q6HWA.RT [place] Last Admin: 10/17/17 14:01 Dose: 3 ml Allopurinol (Zyloprim) 200 mg PO DAILYCM [place] Amlodipine Besylate (Norvasc) 10 mg PO DAILY [place] Calamine/Phenol (Calmoseptine Ointment) 1 applic TOPICAL 4X/DAY [place] PRN Reason: Protocol Last Admin: 10/17/17 13:03 Dose: 1 applicatio Calcium Acetate (Phoslo Gel Cap) 667 mg PO TIDCM [facility] Chlorhexidine Gluconate () 1 each TOPICAL DAILY [facility] Last Admin: 10/17/17 02:26 Dose: 1 each Ergocalciferol (Vitamin D) 50,000 unit PO Q7D [facility] Fluticasone Propionate (Flonase Nasal [place]) 1 spray NASAL DAILY [facility] Last Admin: 10/17/17 09:47 Dose: Not Given Gabapentin (Neurontin) 100 mg PO QHS [facility] Heparin Sodium (Porcine) () 2,500 units IV UD PRN PRN Reason: HEPARIN FLUSH Hydralazine HCl (Apresoline Iv) 10 mg IV Q4H PRN PRN PRN Reason: SBP > 160 Last Admin: 10/17/17 07:10 Dose: 10 mg Sodium Chloride () 1,000 mls @ 100 mls/hr IV .Q10H [facility] Last Admin: 10/17/17 09:42 Dose: 100 mls/hr Pantoprazole Sodium 40 mg/ (Sodium Chloride) 110 mls @ 330 mls/hr IV Q12 [facility] Last Admin: 10/17/17 09:43 Dose: 330 mls/hr Sodium Chloride () 250 mls @ 15 mls/hr IV .[id number] PRN PRN Reason: SALINE FLUSH Insulin Detemir (Levemir (Bkc)) 10 units SC QHS [place] Insulin Human Lispro (Humalog Kwikpen (Bkc)) 0 unit SC ACHS [place] PRN Reason: Protocol Latanoprost (Xalatan Opthalmic) 1 drop EACH EYE QHS [facility] Levothyroxine Sodium (Synthroid) 75 mcg PO DAILY@0600 [facility] Magnesium Hydroxide (Milk Of Magnesia) 30 ml PO DAILY PRN PRN PRN Reason: Constipation Metoprolol Tartrate (Lopressor (Beta [place])) 25 mg PO BID [facility] Ondansetron HCl (Zofran) 4 mg IV Q8H PRN PRN PRN Reason: NAUSEA Sevelamer Carbonate (Renvela) 800 mg PO TIDCM [facility] Sodium Chloride () 5 - 30 ml IV UD PRN PRN Reason: SALINE FLUSH Last Admin: 10/17/17 02:42 Dose: 20 ml Sodium Chloride () 10 ml IV UD PRN PRN Reason: Dialysis Catheter Flush Vancomycin HCl (Vancomycin 125mg/5ml Susp) 125 mg PO Q6 [facility] Last Admin: 10/17/17 13:03 Dose: 125 mg Venlafaxine HCl (Effexor Xr) 150 mg PO DAILY [facility] - Past Medical History Past Medical History (Chronic Problems): Chronic Problems End stage renal disease on dialysis (Chronic) Polyclonal gammopathy (Chronic) PAF (paroxysmal atrial fibrillation) (Chronic) Glaucoma (Chronic) Depression (Chronic) Hyperuricemia (Chronic) Hypertension (Chronic) DM type 1 (diabetes mellitus, type 1) (Chronic) Anemia (Chronic) - Past Surgical History Surgical History: hysterectomy, - - PD catheter placement, tunneled dialysis catheter placement, AVF 06/08/17. - Social History Smoking Status: Former smoker Alcohol: None Drugs: None - Family History Maternal History Items: No pertinent history Paternal History Items: No pertinent history Review of Systems Constitutional: Denies: Chills, Fever, Weight Change HEENT: Denies: Head Aches, Sinus Congestion, Sinus Drainage Cardiovascular: Denies: Chest Pain, Palpitations Respiratory: Denies: Cough, Shortness of breath at rest, Sputum production Gastrointestinal: Denies: Abdominal Pain, Nausea, Vomiting Genitourinary: Denies: Dysuria Musculoskeletal: Denies: Joint Pain, Joint Tenderness Skin: Denies: Rash, Wounds Neurological: Denies: Numbness, Tingling, Focal weakness Psychiatric: Denies: Anxiety, Depression, Homicidal Ideations, Suicidal Ideations Hematologic/ Lymphatic: Denies: Easy Bruising, Easy Bleeding - Physical Exam General: Alert, Oriented x3, Cooperative HEENT: Atraumatic, PERRLA, EOMI, Normocephalic Neck: Supple, No JVD, Negative Carotid Bruits Lungs: Clear to auscultation, Normal air movement Cardiovascular: Regular rate, No murmurs Abdomen: Bowel Sounds Present, Soft, Non Tender Extremities: No edema, Capillary Refill Less than 3 Seconds Skin: No rashes, No breakdown Musculoskeletal: No Tenderness to Palpation of Joints or Extremities Neurological: Cranial nerves II-XII grossly intact Psych/Mental Status: Normal Affect, Appropriate Vital Signs Temp Pulse Resp BP Pulse Ox 98.5 F 68 19 H 186/84 H 96 10/17/17 14:15 10/17/17 15:13 10/17/17 15:00 10/17/17 15:00 10/17/17 15:00 Oxygen Delivery Method Room Air Weight: 85.6 kg Intake and Output for Last 24 Hours 10/15/17 10/16/17 10/17/17 23:59 23:59 23:59 Intake Total 2617 / 2617 Output Total 1000 / 1000 Balance 1617 / 1617 Microbiology Past 72 Hours 10/17/17 00:48 Enteric Bacteriology - Final Stool 10/17/17 00:48 C. difficile DNA Amplification - Final Stool Toxigenic C. difficile DNA Laboratory Tests Past 24 Hrs 10/16/17 10/16/17 10/16/17 23:45 23:55 23:55 WBC RBC Hgb Hct MCV MCH MCHC RDW RDW Differential Plt Count MPV Immature Gran % (Auto) Neut % (Auto) Lymph % (Auto) [place] % (Auto) Eos % (Auto) Baso % (Auto) Absolute Neuts (auto) Absolute Lymphs (auto) Total Counted Nucleated RBC % Diff Path Review Absolute Retic PT INR Sodium 127 L Potassium 6.4 H* Chloride 88 L Carbon Dioxide 17.0 L Anion Gap 22 H BUN 131 H* Creatinine 10.10 H* Estim Creat Clear Calc 6.95 Est GFR (MDRD) Af Amer 5 L Est GFR (MDRD) Non-Af 4 L BUN/Creatinine Ratio 13.0 Glucose 228 H Lactic Acid 4.7 H* Calcium 8.9 Phosphorus 9.9 H* Magnesium 2.7 H Total Bilirubin AST ALT Alkaline Phosphatase Total Protein Albumin Globulin Albumin/Globulin Ratio Hepatitis A IgM Ab Hepatitis A Ab Total Hep Bs Antigen Hep B Core Total Ab Hep B Core IgM Ab Hepatitis C Comment MRSA (PCR) Negative 10/16/17 10/17/17 10/17/17 23:55 02:45 03:50 WBC RBC Hgb Hct MCV MCH MCHC RDW RDW Differential Plt Count MPV Immature Gran % (Auto) Neut % (Auto) Lymph % (Auto) [place] % (Auto) Eos % (Auto) Baso % (Auto) Absolute Neuts (auto) Absolute Lymphs (auto) Total Counted Nucleated RBC % Diff Path Review Absolute Retic PT 33.4 H INR 3.3 Sodium Potassium Chloride Carbon Dioxide Anion Gap BUN Creatinine Estim Creat Clear Calc Est GFR (MDRD) Af Amer Est GFR (MDRD) Non-Af BUN/Creatinine Ratio Glucose Lactic Acid 2.9 H Calcium Phosphorus Magnesium Total Bilirubin AST ALT Alkaline Phosphatase Total Protein Albumin Globulin Albumin/Globulin Ratio Hepatitis A IgM Ab Pending Hepatitis A Ab Total Pending Hep Bs Antigen Pending Hep B Core Total Ab Pending Hep B Core IgM Ab Pending Hepatitis C Comment Pending MRSA (PCR) 10/17/17 10/17/17 10/17/17 03:50 03:50 04:15 WBC 11.3 H RBC 3.29 L Hgb 10.0 L Hct 29.2 L MCV 88.8 MCH 30.4 MCHC 34.2 RDW 17.0 H RDW Differential 54.6 H Plt Count 130 L MPV 10.9 Immature Gran % (Auto) 0.300 Neut % (Auto) 82.3 H Lymph % (Auto) 12.8 L [place] % (Auto) 4.1 Eos % (Auto) 0.4 Baso % (Auto) 0.1 Absolute Neuts (auto) 9.3 H Absolute Lymphs (auto) 1.44 Total Counted Not Reportable Nucleated RBC % 1.5 Diff Path Review Reviewed Absolute Retic 0.17 PT INR Sodium 136 Potassium 4.5 Chloride 95 L Carbon Dioxide 20.0 L Anion Gap 21 H BUN 85 H Creatinine 6.98 H Estim Creat Clear Calc 10.05 Est GFR (MDRD) Af Amer 8 L Est GFR (MDRD) Non-Af 7 L BUN/Creatinine Ratio 12.2 Glucose 168 H Lactic Acid 2.9 H Calcium 8.3 L Phosphorus Magnesium Total Bilirubin 2.70 H AST 208 H ALT 149 H Alkaline Phosphatase 295 H Total Protein 7.9 Albumin 3.5 Globulin 4.4 H Albumin/Globulin Ratio 0.8 L Hepatitis A IgM Ab Hepatitis A Ab Total Hep Bs Antigen Hep B Core Total Ab Hep B Core IgM Ab Hepatitis C Comment MRSA (PCR) POC Glucose 10/17/17 10/17/17 10/17/17 11:15 05:09 00:19 POC Glucose 138 H 172 H 230 H Assessment/Plan All Active Problems Metabolic acidosis (Acute) Abnormal LFTs (Acute) Lactic acidosis (Acute) Hyperphosphatemia (Acute) Severe sepsis (Acute) Metabolic encephalopathy (Acute) Hyperkalemia (Acute) Acute respiratory failure with hypoxia (Acute) Hyponatremia (Acute) CAP (community acquired pneumonia) (Resolved) Clostridium difficile enterocolitis (Resolved) DKA (diabetic ketoacidoses) (Resolved) Human metapneumovirus pneumonia (Resolved) Hypercalcemia (Resolved) Hypoglycemia (Resolved) Malnutrition (Resolved) Pulmonary edema (Resolved) Seizure (Resolved) Warfarin-induced coagulopathy (Resolved) ESRD . HD today. seen on HD. see orders/flowsheets Hyperkalemia. HD as above HTN. usually improved with fluids removal. currently around 165 systolic discussed with staff
[2017-10-17] MEDS: Acetaminophen 325 MG Tablet 650 MG PO ×2 (17:28→23:45)
[2017-10-17] MEDS: SEVELAMER CARBONATE 800 MG TABLET PO (20:04)
[2017-10-17] MEDS: Gabapentin 100 MG Capsule PO (20:04)
[2017-10-17] MEDS: Calcium Acetate 667 MG Capsule PO (20:04)
[2017-10-17] MEDS: Metoprolol Tartrate 25 MG Tablet PO (20:04)
[2017-10-17] MEDS: Latanoprost 0.005% 1 Bottle 1 DRP EACH EYE (20:05)
[2017-10-17 21:15] LABS: Bedside Glucose 173 mg/dL (70-110)
[2017-10-17 22:21] LABS: Bedside Glucose 220 mg/dL (70-110)
[2017-10-18] VITALS (24 sets, daily range): BP systolic 140–187; BP diastolic 61–80; PULSE 63–79; RESP 16–23; TEMP 36.6–37.1; O2SAT 91–100
[2017-10-18] MEDS: Metoprolol Tartrate 5 MG/5 ML Vial IV (02:38)
[2017-10-18] MEDS: 0.9% NaCl Peripheral Flush Adult/Peds IV ×2 (02:40→04:27)
[2017-10-18] MEDS: hydrALAZINE 20 MG/ML Vial IV (04:26)
[2017-10-18 04:42] LABS: Absolute Lymphocyte Count 0.79 X10^3/ul (0.83-4.51); Absolute Neutrophil Count 6.6 X10^3/uL (2.0-7.7); Basophil# 0.01 X10^3/uL; Basophil% 0.1 % (0-1); Differential Indicated SCAN CRITERIA MET; Eosinophil# 0.04 X10^3/uL; Eosinophils% 0.5 % (0-5); Hematocrit 29.9 % (37-47); Hemoglobin 10.2 g/dl (12.0-15.0); Lymphocyte # 0.79 X10^3/ul (4.0); Lymphocyte % 9.7 % (19-41); Mean Corp Hgb Conc 34.1 g/gl (32-36); Mean Corpuscular Hgb 30.8 pg (27.0-32.0); Mean Corpuscular Volume 90.3 fL (81-99); Monocyte# 0.67 X10^3/uL; Monocyte% 8.2 % (0-10); Neutrophil % 81.3 % (47-70); POSITIVE COUNT NO; POSITIVE DIFFERENTIAL NO; POSITIVE MORPHOLOGY YES; Platelet Count 105 K/mm3 (150-450); RBC Distribution Width CV 18.3 % (11.6-14.6); RBC Distribution Width SD 57.8 fl (35.1-43.9); Red Blood Count 3.31 M/mm3 (4.2-5.4); White Blood Count 8.1 K/mm3 (4.4-11.0)
[2017-10-18 04:43] LABS: Absolute Nucleated RBC Count 0.19 10^3/uL (0-5); NRBC Flagged by Analyzer 2.4 % (0-5)
[2017-10-18 05:04] LABS: Anion Gap 14 (5-15); BUN 41 mg/dL (7-18); BUN/Creat Ratio 9.2 RATIO (10-20); Calcium,Total 8.3 mg/dL (8.5-10.1); Chloride 96 mmol/L (98-107); Creatinine, Serum 4.46 mg/dL (0.55-1.02); EST Glomerular Filtration Rate 11 mL/min (>60); Est Glom Filt Rate - Afr Amer 14 mL/min (>60); Estimated Creatinine Clearance 15.73 ml/min; Glucose 258 mg/dL (74-106); Magnesium 2.2 mg/dL (1.6-2.6); Phosphorus 4.8 mg/dL (2.5-4.9); Potassium 3.7 mmol/L (3.5-5.1); Sodium Level 135 mmol/L (136-145)
[2017-10-18 05:07] LABS: HEPATITIS B SURFACE AG Negative (Negative); Hepatitis A AB, Total Negative (Negative); Hepatitis A IgM Antibody Negative (Negative); Hepatitis B Core AB IgM Negative (Negative); Hepatitis B Core Ab Total Negative (Negative); Hepatitis C Ab <0.1 s/co ratio (0.0-0.9)
[2017-10-18 05:09] LABS: Anisocytosis 1+; Differential Comment SCANNED; Hypochromasia 2+; Target Cells 1+
[2017-10-18] MEDS: Levothyroxine 75 MCG Tablet PO (06:03)
[2017-10-18] MEDS: Acetaminophen 325 MG Tablet 650 MG PO ×2 (06:03→13:17)
--- NOTE | 2017-10-18 06:59 | PCM.PROGNOTE ---
Subjective: Patient reports she has no recollection past last Saturday. Patient is back to her baseline at this point. Nursing reports 1 bowel movement overnight. Patient denies any abdominal pain. - Physical Exam General: Alert, Oriented x3, Cooperative, No apparent distress, Well developed, Well nourished, - - Speaks in full sentences. HEENT: Atraumatic, PERRLA, EOMI, Normocephalic Oral: Moist Mucosa, No Gingival or Mucosal Lesions/ Ulcerations Neck: Supple, No JVD, No Nodes, Trachea Midline Lungs: Clear to auscultation, Normal air movement, No rhonchi, No wheeze, No rales Cardiovascular: Regular rate, Regular Rhythm, Normal S1, Normal S2, Murmur, No rub noted, No Gallop Abdomen: Bowel Sounds Present, Soft, Non Tender, Non-Distended Extremities: No clubbing, No cyanosis, No edema, Capillary Refill Less than 3 Seconds Skin: No rashes, No breakdown Musculoskeletal: No Tenderness to Palpation of Joints or Extremities, No Muscle Wasting Lymphatic: No Cervical, Supraclavicular, or Inguinal Adenopathy Neurological: Cranial nerves II-XII grossly intact, Neuro grossly intact, Motor Exam 5/5 strength throughout Psych/Mental Status: Alert and oriented to time, place, person, mood and affect Vital Signs Temp Pulse Resp BP Pulse Ox 37.1 C 68 20 H 145/66 H 93 10/18/17 04:00 10/18/17 06:00 10/18/17 06:00 10/18/17 06:00 10/18/17 06:00 Oxygen Delivery Method Room Air Weight: 85.8 kg Intake and Output for Last 24 Hours 10/16/17 10/17/17 10/18/17 23:59 23:59 23:59 Intake Total 2617 / 2617 1080 / 1080 Output Total 4200 / 4200 Balance -1583 / -1583 1080 / 1080 Microbiology Past 72 Hours 10/17/17 00:48 Enteric Bacteriology - Final Stool 10/17/17 00:48 C. difficile DNA Amplification - Final Stool Toxigenic C. difficile DNA Laboratory Tests Past 24 Hrs 10/17/17 10/18/17 10/18/17 03:50 04:15 04:15 WBC 8.1 RBC 3.31 L Hgb 10.2 L Hct 29.9 L MCV 90.3 MCH 30.8 MCHC 34.1 RDW 18.3 H RDW Differential 57.8 H Plt Count 105 L Immature Gran % (Auto) 0.200 Neut % (Auto) 81.3 H Lymph % (Auto) 9.7 L [place] % (Auto) 8.2 Eos % (Auto) 0.5 Baso % (Auto) 0.1 Absolute Neuts (auto) 6.6 Absolute Lymphs (auto) 0.79 L Total Counted Not Reportable Nucleated RBC % 2.4 Differential Comment SCANNED Diff Path Review Reviewed September foll Hypochromasia 2+ Anisocytosis 1+ Target Cells 1+ Absolute Retic 0.19 Sodium 135 L Potassium 3.7 Chloride 96 L Carbon Dioxide 25.0 Anion Gap 14 BUN 41 H Creatinine 4.46 H Estim Creat Clear Calc 15.73 Est GFR (MDRD) Af Amer 14 L Est GFR (MDRD) Non-Af 11 L BUN/Creatinine Ratio 9.2 L Glucose 258 H Calcium 8.3 L Phosphorus 4.8 Magnesium 2.2 POC Glucose 10/17/17 10/17/17 10/17/17 22:04 19:57 11:15 POC Glucose 220 H 173 H 138 H Clinical Impression(s) from Imaging Studies Chest X-Ray 10/17/17 05:55 IMPRESSION: Limited inspiratory effort. Increased markings at the right lung base suggesting atelectasis and/or early infiltrate. Follow-up is recommended. Electronically Signed: Thuan Benton MD at 8:19 EDT Tel [phone], Service support , Medical Necessity - Tobacco Use Smoking Status: Former smoker Tobacco Use: Non-smoker Assessment/Plan All Active Problems Metabolic acidosis (Acute) Abnormal LFTs (Acute) Lactic acidosis (Acute) Hyperphosphatemia (Acute) Severe sepsis (Acute) Metabolic encephalopathy (Acute) Hyperkalemia (Acute) Acute respiratory failure with hypoxia (Acute) Hyponatremia (Acute) CAP (community acquired pneumonia) (Resolved) Clostridium difficile enterocolitis (Resolved) DKA (diabetic ketoacidoses) (Resolved) Human metapneumovirus pneumonia (Resolved) Hypercalcemia (Resolved) Hypoglycemia (Resolved) Malnutrition (Resolved) Pulmonary edema (Resolved) Seizure (Resolved) Warfarin-induced coagulopathy (Resolved) RECOMMENDATIONS: 1. Continue with C. difficile therapy 2. Dialysis per nephrology 3. All blood pressure medications have been reinitiated 4. Hemodynamically stable on room air. Will sign off from a critical care perspective IMPRESSIONS: 1. Severe sepsis secondary to C. difficile colitis Patient appears to be responding to therapy for C. difficile colitis. No hemodynamic instability has been noted. Bowel movements are much improved compared to previous. 2. Metabolic encephalopathy secondary to uncontrolled end-stage renal disease RESOLVED > With multiple electrolyte abnormalities secondary to missing hemodialysis. Patient is on appropriate antibiotics for severe sepsis. Patient likely not to have hemodialysis today, but deferred to nephrology. Continue with delirium protocol. 3. Hyponatremia/hyperkalemia/end-stage renal disease with noncompliance Improved after 2 days of hemodialysis. We will continue to monitor. 4. Diabetes mellitus type 2 Once sugars are elevated at this time. Will continue to use sliding scale insulin for now given n.p.o. status. 5. Hypertensive urgency She with noncompliance with therapy for end-stage renal disease. High clinical suspicion for volume overload leading to elevated blood pressures. Nephrology is consulted. If patient continues to have difficulties following a full hemodialysis session, initiation of antihypertensives would be indicated. No indication of complications of elevated blood pressure at this time to indicate need for more aggressive therapy. 6. Hyperlipidemia/anxiety/depression/history of noncompliance/paroxysmal A. fib/moderate pulmonary hypertension Complicates care, management, recovery and prognosis. Patient is anticoagulated. Patient is currently rate controlled. Code Visit Inpatient E&M: 25887 Subs Hosp L2
[2017-10-18] MEDS: Ipratropium/Albuterol Sulfate 3 ML AMPUL.NEB INHALATION (07:09)
[2017-10-18] MEDS: Calcium Acetate 667 MG Capsule PO ×3 (08:12→16:58)
[2017-10-18] MEDS: Insulin Lispro 100 UNIT/ML INSULN.PEN SC ×4 (08:12→22:10)
[2017-10-18] MEDS: SEVELAMER CARBONATE 800 MG TABLET PO ×3 (08:12→16:58)
[2017-10-18] MEDS: Allopurinol 100 MG Tablet 200 MG PO (08:12)
[2017-10-18] MEDS: CHLORHEXIDINE GLUC 2% CLOTH 1 EACH TOWELETTE TOPICAL (08:13)
[2017-10-18] MEDS: Heparin Injection (Vial) 5,000 UNIT/ML VIAL 5000 UNIT IV (08:25)
--- NOTE | 2017-10-18 08:30 | NURSING ---
solar installer pv present in pt room, run begun
--- NOTE | 2017-10-18 11:29 | CASEMGMT ---
Social Work Assessment Referral Date: 10/16/17 Date of Assessment: 10/18/17 Reason for Consult: Compliancy concerns, bruising at various stages of healing Informant: Sylvia Gomez RN Personal Status: Pt presents with pleasant affect as evidenced by smiling and willingness to participate throughout assessment. Pt is alert and oriented x4 and able to participate in completion of assessment. Introduced self and role at [facility]. Pt reports that she lives with her spouse in a two-story home. Bathroom and bedroom are on the second floor. Flight of stair does have two handrails on either side for support. Pt denies recent falls or access issues and claims to be independent with ADL's. Pt does still drive. DME consists of a bsc and walker. Pt reports that she will be using walker at discharge for home going as she will feel more weak, but does not typically use at her baseline. Claims to have dialysis M,W,F at [facility] at [address] She drives herself on [address], but her spouse drives her on [address] as they have one vehicle and have to share. Transportation is a concern. Pt is unemployed and has been for 17-18 years. States that her spouse works FT and claims that they are financially stable. Pt denies having ever applied for disability and denies any additional assistance received. Provided pt with Disability information as well as Medicaid application to see if she and her spouse qualify as pt was not sure of her spouse's monthly income upon questioning. Address concern of bruising and pt states she does not know where they came from, but she must bruise easily. Again, denies falls or injury. States that she does have a little dog who sometimes can play rough with Mommy. Denies any abuse or neglect in the home from spouse and claims to feel safe to return home. Substance Use Hx: Pt denies substance use/abuse hx. Mental Health: Diagnoses: Anxiety Stressors: Transportation, Disease Process SI or HI? No Active Plan? Denies Medications: Xanax Prescribed by: PCP Pt reports hx of anxiety attacks. Was in counseling in the past, but is not presently. States that she takes Xanax PRN if she begins to have a Panic Attack. She utilizes deep breathing techniques with exacerbation of these symptoms and claims that her anxiety is well managed. Declines establishment with counseling at this time, but is made aware of area resources. Resources: Denies utilization of community resources. Intervention: Educated to Medicaid application and transportation assistance if pt and spouse were to qualify. Educated to Disability Benefits and application process for additional assistance. Plan: Home at discharge. EH Miranda, JUNIOR SALES ASSISTANT
[2017-10-18] MEDS: Heparin 10,000 UNITS/10 ML Vial IV (12:20)
[2017-10-18 12:22] LABS: International Normalized Ratio 2.3; Prothrombin Time (Protime)PT. 25.5 SECONDS (11.7-14.9)
--- NOTE | 2017-10-18 12:33 | DIALYSIS ---
HD X 4 HRS ON A 3K BATH. -2600 ML REMOVED C/L OF SOME CRAMPING IN TOES. EPOGEN AND VENOFER GIVEN DURING TREATMENT. DR BHATTI HERE AND SEEN PT. VITALS STABLE POST TREATMENT . REPORT TO SEBASTIÁN POLLARD
[2017-10-18 12:34] LABS: Hep B Surface Antibodies Reactive (.)
--- NOTE | 2017-10-18 12:46 | PCM.PN.REN ---
Subjective: Following for ESRD. I supervised the dialysis. Pt did have some toe cramping towards the end of HD> No CP, SOB or nausea. - Physical Exam General: Alert, Oriented x3 HEENT: Atraumatic Oral: Moist Mucosa Neck: Supple Lungs: Clear to auscultation Cardiovascular: Normal S1, Normal S2, No murmurs Abdomen: Bowel Sounds Present, Soft, Non Tender Extremities: No edema Vital Signs Temp Pulse Resp BP Pulse Ox 98.7 F 74 16 145/66 H 95 10/18/17 04:00 10/18/17 07:09 10/18/17 07:09 10/18/17 06:00 10/18/17 07:09 Oxygen Delivery Method Room Air Weight: 85.8 kg Intake and Output for Last 24 Hours 10/16/17 10/17/17 10/18/17 23:59 23:59 23:59 Intake Total 2617 / 2617 1080 / 1080 Output Total 4200 / 4200 Balance -1583 / -1583 1080 / 1080 Microbiology Past 72 Hours 10/17/17 00:48 Enteric Bacteriology - Final Stool 10/17/17 00:48 C. difficile DNA Amplification - Final Stool Toxigenic C. difficile DNA Laboratory Tests Past 24 Hrs 10/16/17 10/17/17 10/18/17 23:55 03:50 04:15 WBC 8.1 RBC 3.31 L Hgb 10.2 L Hct 29.9 L MCV 90.3 MCH 30.8 MCHC 34.1 RDW 18.3 H RDW Differential 57.8 H Plt Count 105 L Immature Gran % (Auto) 0.200 Neut % (Auto) 81.3 H Lymph % (Auto) 9.7 L [place] % (Auto) 8.2 Eos % (Auto) 0.5 Baso % (Auto) 0.1 Absolute Neuts (auto) 6.6 Absolute Lymphs (auto) 0.79 L Total Counted Not Reportable Nucleated RBC % 2.4 Differential Comment SCANNED Diff Path Review Reviewed May foll Hypochromasia 2+ Anisocytosis 1+ Target Cells 1+ Absolute Retic 0.19 PT INR Sodium Potassium Chloride Carbon Dioxide Anion Gap BUN Creatinine Estim Creat Clear Calc Est GFR (MDRD) Af Amer Est GFR (MDRD) Non-Af BUN/Creatinine Ratio Glucose Calcium Phosphorus Magnesium Hepatitis A IgM Ab Negative Hepatitis A Ab Total Negative Hep Bs Antigen Negative Hep B Core Total Ab Negative Hep B Core IgM Ab Negative Hepatitis C Ab Confirm <0.1 Hepatitis C Comment Comment 10/18/17 10/18/17 04:15 12:00 WBC RBC Hgb Hct MCV MCH MCHC RDW RDW Differential Plt Count Immature Gran % (Auto) Neut % (Auto) Lymph % (Auto) [place] % (Auto) Eos % (Auto) Baso % (Auto) Absolute Neuts (auto) Absolute Lymphs (auto) Total Counted Nucleated RBC % Differential Comment Diff Path Review Hypochromasia Anisocytosis Target Cells Absolute Retic PT 25.5 H INR 2.3 Sodium 135 L Potassium 3.7 Chloride 96 L Carbon Dioxide 25.0 Anion Gap 14 BUN 41 H Creatinine 4.46 H Estim Creat Clear Calc 15.73 Est GFR (MDRD) Af Amer 14 L Est GFR (MDRD) Non-Af 11 L BUN/Creatinine Ratio 9.2 L Glucose 258 H Calcium 8.3 L Phosphorus 4.8 Magnesium 2.2 Hepatitis A IgM Ab Hepatitis A Ab Total Hep Bs Antigen Hep B Core Total Ab Hep B Core IgM Ab Hepatitis C Ab Confirm Hepatitis C Comment POC Glucose 10/17/17 10/17/17 22:04 19:57 POC Glucose 220 H 173 H Medical Necessity - Tobacco Use Smoking Status: Former smoker Tobacco Use: Non-smoker Assessment/Plan All Active Problems Metabolic acidosis (Acute) Abnormal LFTs (Acute) Lactic acidosis (Acute) Hyperphosphatemia (Acute) Severe sepsis (Acute) Metabolic encephalopathy (Acute) Hyperkalemia (Acute) Acute respiratory failure with hypoxia (Acute) Hyponatremia (Acute) CAP (community acquired pneumonia) (Resolved) Clostridium difficile enterocolitis (Resolved) DKA (diabetic ketoacidoses) (Resolved) Human metapneumovirus pneumonia (Resolved) Hypercalcemia (Resolved) Hypoglycemia (Resolved) Malnutrition (Resolved) Pulmonary edema (Resolved) Seizure (Resolved) Warfarin-induced coagulopathy (Resolved) 1. ESRD . HD today. seen on HD. see orders/flowsheets 2. Hyperkalemia. K is back to normal. Continue HD MWF to prevent hyperkalemia. Importance of adhering to dialysis was reemphasized to the patient. 3. HTN. Improved with fluids removal. Continue current BP meds. 4. CKD-mineral bone disease. Continue Phoslo with meals. Check ca/phos and PTH as outpt. 5. Encephalopathy. Clearing. Maybe libertarian from uremia. Better after dialysis. Importance of adhering to dialysis was reemphasized to the patient. 6. C.diff colitis. Treatment as per hospitalist. No current diarrhea. Dispo: OK from renal standpoint to discharged. The pt was instructed to follow up at [facility] after discharge.
[2017-10-18] MEDS: Menthol/Lanolin/Calamine/Znox 113 GM Tube 1 APPLIC TOPICAL ×2 (13:16→22:09)
[2017-10-18] MEDS: Venlafaxine XR 150 MG Capsule PO (13:16)
[2017-10-18] MEDS: Metoprolol Tartrate 25 MG Tablet PO ×2 (13:16→22:15)
[2017-10-18] MEDS: amLODIPine 10 MG Tablet PO (13:16)
[2017-10-18] MEDS: Nepro Liquid 120 ML LIQUID PO ×3 (13:18→22:10)
[2017-10-18 13:46] LABS: Bedside Glucose 229 mg/dL (70-110)
--- NOTE | 2017-10-18 16:15 | PCM.PN.HOSP ---
Subjective: CC: Acute encephalopathy Objective: He is alert and oriented to time place and person, her diarrhea has improved. Vitals/I&O's: Vital Signs Temp Pulse Resp BP Pulse Ox 97.8 F 72 19 H 171/74 H 92 10/18/17 12:00 10/18/17 15:00 10/18/17 12:00 10/18/17 13:16 10/18/17 12:00 Oxygen Delivery Method Room Air Weight: 85.8 kg Intake and Output for Last 24 Hours 10/16/17 10/17/17 10/18/17 23:59 23:59 23:59 Intake Total 2617 / 2617 1280 / 1280 Output Total 4200 / 4200 2600 / 2600 Balance -1583 / -1583 -1320 / -1320 General: Alert, Oriented x3 Oral: Moist Mucosa Neck: Supple, No JVD Lungs: Clear to auscultation Cardiovascular: Regular rate, Normal S1 Abdomen: Bowel Sounds Present, Soft, Non Tender Extremities: No clubbing Neurological: Motor Exam 5/5 strength throughout Microbiology Past 72 Hours 10/17/17 00:48 Stool Enteric Bacteriology - Final 10/17/17 00:48 Stool C. difficile DNA Amplification - Final Toxigenic C. difficile DNA Laboratory Results 10/16/17 23:55: Hepatitis A IgM Ab Negative, Hepatitis A Ab Total Negative, Hep Bs Antigen Negative, Hep B Core Total Ab Negative, Hep B Core IgM Ab Negative, Hepatitis C Ab Confirm <0.1, Hepatitis C Comment Comment 10/17/17 19:57: POC Glucose 173 H 10/17/17 22:04: POC Glucose 220 H 10/18/17 04:15: WBC 8.1, RBC 3.31 L, Hgb 10.2 L, Hct 29.9 L, MCV 90.3, MCH 30.8, MCHC 34.1, RDW 18.3 H, RDW Differential 57.8 H, Plt Count 105 L, Immature Gran % (Auto) 0.200, Neut % (Auto) 81.3 H, Lymph % (Auto) 9.7 L, [place] % (Auto) 8.2, Eos % (Auto) 0.5, Baso % (Auto) 0.1, Absolute Neuts (auto) 6.6, Absolute Lymphs (auto) 0.79 L, Total Counted Not Reportable, Nucleated RBC % 2.4, Differential Comment SCANNED, Diff Path Review May foll, Hypochromasia 2+, Anisocytosis 1+, Target Cells 1+, Absolute Retic 0.19 10/18/17 04:15: Sodium 135 L, Potassium 3.7, Chloride 96 L, Carbon Dioxide 25.0, Anion Gap 14, BUN 41 H, Creatinine 4.46 H, Estim Creat Clear Calc 15.73, Est GFR (MDRD) Af Amer 14 L, Est GFR (MDRD) Non-Af 11 L, BUN/Creatinine Ratio 9.2 L, Glucose 258 H, Calcium 8.3 L, Phosphorus 4.8, Magnesium 2.2 10/18/17 12:00: PT 25.5 H, INR 2.3 10/18/17 13:09: POC Glucose 229 H Current Medications Acetaminophen (Tylenol) 650 mg PO Q6H PRN PRN PRN Reason: PAIN Last Admin: 10/18/17 13:17 Dose: 650 mg Al Hydroxide/Mg Hydroxide (Mylanta Ii) 30 ml PO Q6H PRN PRN PRN Reason: Gastric burning Albuterol Sulfate (Ventolin Aerosols) 2.5 mg INHALATION Q2H PRN PRN PRN Reason: dyspnea, wheezing [facility] Last Admin: 10/18/17 08:12 Dose: 200 mg Amlodipine Besylate (Norvasc) 10 mg PO DAILY [facility] Last Admin: 10/18/17 13:16 Dose: 10 mg Calamine/Phenol (Calmoseptine Ointment) 1 applic TOPICAL 4X/DAY [facility] PRN Reason: Protocol Last Admin: 10/18/17 13:20 Dose: Not Given Calcium Acetate (Phoslo Gel Cap) 667 mg PO TIDCM [facility] Last Admin: 10/18/17 13:28 Dose: 667 mg Ergocalciferol (Vitamin D) 50,000 unit PO Barrett@1000 [facility] Fluticasone Propionate (Flonase Nasal [place]) 1 spray NASAL DAILY [facility] Last Admin: 10/18/17 13:20 Dose: Not Given Gabapentin (Neurontin) 100 mg PO QHS [facility] Last Admin: 10/17/17 20:04 Dose: 100 mg Heparin Sodium (Porcine) () 2,500 units IV UD PRN PRN Reason: HEPARIN FLUSH Hydralazine HCl (Apresoline Iv) 10 mg IV Q4H PRN PRN PRN Reason: SBP > 160 Last Admin: 10/17/17 23:45 Dose: 10 mg Sodium Chloride () 250 mls @ 15 mls/hr IV .[id number] PRN PRN Reason: SALINE FLUSH Insulin Detemir (Levemir (Bk)) 10 units SC QHS [facility] Last Admin: 10/17/17 20:14 Dose: Not Given Insulin Human Lispro (Humalog Kwikpen ([facility])) 0 unit SC ACHS [facility] PRN Reason: Protocol Last Admin: 10/18/17 13:13 Dose: 4 u Latanoprost (Xalatan Opthalmic) 1 drop EACH EYE QHS [facility] Last Admin: 10/17/17 20:05 Dose: 1 drop Levothyroxine Sodium (Synthroid) 75 mcg PO DAILY@0600 [facility] Last Admin: 10/18/17 06:03 Dose: 75 mcg Magnesium Hydroxide (Milk Of Magnesia) 30 ml PO DAILY PRN PRN PRN Reason: Constipation Metoprolol Tartrate (Lopressor (Beta [place])) 25 mg PO BID [facility] Last Admin: 10/18/17 13:16 Dose: 25 mg Nutritional Formula (Nepro Carb Steady) 120 ml PO 4X/DAY [facility] Last Admin: 10/18/17 13:20 Dose: Not Given Ondansetron HCl (Zofran) 4 mg IV Q8H PRN PRN PRN Reason: NAUSEA Pantoprazole Sodium (Protonix) 40 mg PO DAILY [facility] Sevelamer Carbonate (Renvela) 800 mg PO TIDCM [facility] Last Admin: 10/18/17 13:28 Dose: 800 mg Sodium Chloride () 5 - 30 ml IV UD PRN PRN Reason: SALINE FLUSH Last Admin: 10/18/17 04:27 Dose: 10 ml Sodium Chloride () 10 ml IV UD PRN PRN Reason: Dialysis Catheter Flush Vancomycin HCl (Vancomycin 125mg/5ml Susp) 125 mg PO Q6 [facility] Venlafaxine HCl (Effexor Xr) 150 mg PO DAILY [facility] Last Admin: 10/18/17 13:16 Dose: 150 mg Medical Necessity - Tobacco Use Smoking Status: Former smoker Tobacco Use: Non-smoker Assessment/Plan All Active Problems Metabolic acidosis (Acute) Abnormal LFTs (Acute) Lactic acidosis (Acute) Hyperphosphatemia (Acute) Severe sepsis (Acute) Metabolic encephalopathy (Acute) Hyperkalemia (Acute) Acute respiratory failure with hypoxia (Acute) Hyponatremia (Acute) CAP (community acquired pneumonia) (Resolved) Clostridium difficile enterocolitis (Resolved) DKA (diabetic ketoacidoses) (Resolved) Human metapneumovirus pneumonia (Resolved) Hypercalcemia (Resolved) Hypoglycemia (Resolved) Malnutrition (Resolved) Pulmonary edema (Resolved) Seizure (Resolved) Warfarin-induced coagulopathy (Resolved) 1. Acute encephalopathy, metabolic; this has resolved. 2. Severe hyperkalemia due to end-stage renal disease with missed dialysis; it has been treated. 3. End-stage renal disease; she is advised to adhere to her dialysis schedule on [facility]. 4. DM type II with hyperglycemia; increase Levemir to 20 units. 5. acute Hepatitis; vital hepatitis profile was ordered and is pending, would avoid potential hepatotoxic agents. 6. Recurrent C. difficile infection; we will continue on oral vancomycin and discontinue Flagyl for now. 7. Metabolic acidosis secondary to #3, improved with hemodialysis. 8. Hypothyroidism; she is on Synthroid. 9. PAF on chronic Coumadin , INR is 2.3 today, we will restart Coumadin today. Code Visit Inpatient E&M: 38812 Subs Hosp L2
[2017-10-18] MEDS: hydrALAZINE 20 MG/ML Vial 10 MG IV (16:58)
[2017-10-18 17:27] LABS: Bedside Glucose 239 mg/dL (70-110)
[2017-10-18] MEDS: Latanoprost 0.005% 1 Bottle 1 DRP EACH EYE (22:10)
[2017-10-18] MEDS: Gabapentin 100 MG Capsule PO (22:15)
[2017-10-18 22:21] LABS: Bedside Glucose 365 mg/dL (70-110)
[2017-10-19] VITALS (9 sets, daily range): BP systolic 157–179; BP diastolic 74–84; PULSE 67–77; RESP 14–19; TEMP 36.6–37.2; O2SAT 93–95
[2017-10-19] MEDS: hydrALAZINE 20 MG/ML Vial 10 MG IV (04:28)
[2017-10-19] MEDS: 0.9% NaCl Peripheral Flush Adult/Peds IV ×2 (04:28→06:39)
[2017-10-19] MEDS: Levothyroxine 75 MCG Tablet PO (04:31)
[2017-10-19 04:54] LABS: International Normalized Ratio 1.7; Prothrombin Time (Protime)PT. 19.9 SECONDS (11.7-14.9)
[2017-10-19 05:07] LABS: AST(SGOT) 393 U/L (15-37); Alanine Aminotransfer ALT/SGPT 380 U/L (13-56); Alkaline Phosphatase 284 U/L (45-117); Bilirubin, Direct 0.79 mg/dL (0.00-0.30); Globulin 4.3 g/dL (2.2-4.2); Protein, Total 7.3 g/dL (6.4-8.2)
[2017-10-19] MEDS: Dextrose 50%-Water 25 GM/50 ML DISP.SYRIN IV (05:55)
[2017-10-19 06:21] LABS: Bedside Glucose 40 mg/dL (70-110)
[2017-10-19 06:21] LABS: Bedside Glucose 106 mg/dL (70-110)
[2017-10-19] MEDS: SEVELAMER CARBONATE 800 MG TABLET PO ×2 (08:04→11:52)
[2017-10-19] MEDS: Calcium Acetate 667 MG Capsule PO ×2 (08:04→11:52)
[2017-10-19] MEDS: Allopurinol 100 MG Tablet 200 MG PO (08:04)
[2017-10-19] MEDS: Metoprolol Tartrate 25 MG Tablet PO (09:19)
[2017-10-19] MEDS: Pantoprazole Sodium 40 MG Tablet PO (09:19)
[2017-10-19] MEDS: amLODIPine 10 MG Tablet PO (09:19)
[2017-10-19] MEDS: Nepro Liquid 120 ML LIQUID PO (09:19)
[2017-10-19] MEDS: Venlafaxine XR 150 MG Capsule PO (09:19)
--- NOTE | 2017-10-19 09:19 | DS.PCM_ITS ---
Discharge Date and Diagnosis Date of Admission: 10/16/17 Date of Discharge: 10/19/17 - Secondary Discharge Diagnosis Chronic Problems End stage renal disease on dialysis (Chronic) Polyclonal gammopathy (Chronic) PAF (paroxysmal atrial fibrillation) (Chronic) Glaucoma (Chronic) Depression (Chronic) Hyperuricemia (Chronic) Hypertension (Chronic) DM type 1 (diabetes mellitus, type 1) (Chronic) Anemia (Chronic) Hospital Course and Treatment Imaging Results: 10/19/17 07:50 US Gallbladder [Gallbladder] [US] Urgent 10/19/17 08:33 Abdomen Single View [RAD] Stat Chest 1 View [RAD] Stat Skull less than 4 Views [RAD] Stat MRCP Abdomen without Contrast [MRI] Urgent Summary of Care Provided: This is a 47 y/o F past medical history of ESRD on HD ,HTN, HLD, Hypothyroidism , Hx Polyclonal gammopathy, PAF on chronic coumadin therapy, Depression , Anxiety, Diabetes mellitus typeII, History of Clostridium Difficile Colitis who presents to the [facility] ED on 10/16/17 with mental status changes after missing dialysis She was also reported to have watery stools. Found to have severe hyperkalemia that has now resolved after dialysis. Her stool is positive for C. difficile and she was started on oral Vancocin. She has elevated transaminases- cholestatic pattern, she is status post cholecystectomy and MRCP was ordered to evaluate the common bile duct rule out stones or strictures, but patient declined this procedure and states she was to follow with her primary care doctor for this. 1. Acute encephalopathy, metabolic; this has resolved. She is alert and oriented to time place and person at the time of her discharge. 2. Severe hyperkalemia due to end-stage renal disease with missed dialysis; it has been treated. 3. End-stage renal disease; she is advised to adhere to her dialysis schedule on [facility]. 4. DM type II with hyperglycemia; continue on Levemir. 5. acute Hepatitis; viral hepatitis profile is nonreactive. 6. Recurrent C. difficile infection; start on oral Vancocin to complete 14 days of therapy. 7. Metabolic acidosis secondary to #3, improved with hemodialysis. 8. Hypothyroidism; she is on Synthroid. 9. PAF; is in sinus rhythm. 10. Coagulopathy INR is 1.7 today , she reports she does not take any Coumadin at home. This is most likely due to her liver disease, she is to avoid potential hepatotoxic medications. Discharge Activity: Return to Normal Activity Home Medications: Medications to take at Discharge Albuterol Inhaler [Ventolin Hfa] 2 puff INHALATION Q4H PRN PRN 10/28/16 Allopurinol [Zyloprim] 200 mg PO DAILY 10/28/16 Amlodipine [Norvasc] 10 mg PO DAILY 10/28/16 Calcium Acetate 667 mg PO TID 10/28/16 Docusate Sodium [Colace] 100 mg PO DAILY 10/28/16 Ergocalciferol [Vitamin D] 50,000 unit PO Q7D 10/28/16 Fluticasone 0.05% [Flonase Nasal [place]] 1 spray NASAL DAILY 10/28/16 Gabapentin [Neurontin] 100 mg PO QHS 10/28/16 Latanoprost 0.005% [Xalatan Opthalmic] 1 drop EACH EYE QHS 10/28/16 Levothyroxine [Synthroid] 50 mcg PO DAILY 10/28/16 Multivitamin/Iron/Folic Acid [Centrum Adults Tablet] 1 each PO DAILY 10/28/16 Venlafaxine XR [Effexor Xr] 150 mg PO DAILY 10/28/16 proMETHazine tablet [Phenergan tablet] 25 mg PO Q4H PRN PRN 10/28/16 Insulin Glargine [Lantus SoloStar Pen] 10 units SC QHS 05/17/17 Sevelamer Carbonate [Renvela] 800 mg PO TID 05/17/17 Metoprolol Tartrate [Lopressor (beta dutch)] 25 mg PO BID #60 tab 06/03/17 Levothyroxine [Synthroid] 75 mcg PO DAILY@0600 #30 tab 06/24/17 Vancomcyin 125 MG/ 5 ML Susp [Vancomycin 125mg/5mL Susp] 125 mg PO Q6 10 Days po.syringe 10/19/17 Following Prescrptions Were Given to Patient: Vancomcyin 125 MG/ 5 ML Susp [Vancomycin 125mg/5mL Susp] 125 mg PO Q6 10 Days po.syringe Primary Care Physician: J[place] Doctor,Out of [Primary Care Provider] - In 1 Week Medical Necessity - Tobacco Use Smoking Status: Former smoker Tobacco Use: Non-smoker Meaningful Use Info Meaningful Use Diagnoses (Choose all that apply): None applicable Code Visit Inpatient E&M: 21444 Disch Hosp
[2017-10-19] MEDS: Menthol/Lanolin/Calamine/Znox 113 GM Tube 1 APPLIC TOPICAL (09:23)
[2017-10-19 11:15] LABS: Bedside Glucose 213 mg/dL (70-110)
[2017-10-19] MEDS: Insulin Lispro 100 UNIT/ML INSULN.PEN SC (11:52)
[2017-10-30 10:55] LABS: Pathologist Review Reviewed
--- NOTE | 2017-11-02 16:01 | ED.VISSUMM ---
- ER Visit Summary Date of Service: 10/16/17 Chief Complaint: Sick History of Present Illness: The patient is a 47 F who skipped dialysis over the last 2 sessions. Her is with her and provides the history. She was not feeling well and missed dialysis. Today she is very tired and minimally responsive. She has a history of diabetes, hypertension, end-stage renal disease, sepsis, encephalopathy, and acute respiratory failure secondary to hypoxia. Physical Examination: Vital signs unremarkable. Afebrile. GCS is 14. Head and neck atraumatic. Heart regular. Lungs clear. Abdomen soft. Skin appears normal except for sacral decubitus ulcer. She is alert but not oriented. Test Results: EKG showed sinus rhythm at a rate of 77. Chest x-ray unremarkable. CT head unremarkable. White count 13.6. Chemistry panel reflects her end-stage renal disease. Hepatic enzymes elevated. Troponin normal and lactate 3.3. Cultures pending. Potassium was 7.4. Emergency Department Course and Treatment: Patient was placed on a monitor. She was given calcium, dextrose, insulin, bicarb for EKG Is consistent with hyperkalemia. Patient was covered for sepsis with Azactam and vancomycin. Patient had gradual and continuous improvement throughout her stay. I discussed her case with nephrology, critical care, and the hospitalist and she will be admitted to the ICU. Treatment Plan: As above Disposition: Admission Impression: 1. Encephalopathy 2. Hyperkalemia 3. Severe sepsis 4. End-stage renal disease ED summary was not dictated during the patient's stay and it was completed on November 02. This note was generated with [employer] dictation software. It may contain incorrect words, spelling, and punctuation that were not noted in review of the chart prior to signing ED Disposition - Plan for ED Patient: Disposition: Acute Care Hospital [facility] Chief Complaint: Weakness
== END 2017-10-19 12:30 | disposition home or self-care (01) | DRG 871 ==
LOC: ED 21:32 → ICU 22:35
PROVIDERS: Internal Medicine Critical Care Medicine; Admitting Provider Family Medicine; Emergency Provider Emergency Medicine; Visit Provider Internal Medicine
DX: A41.9 Sepsis, unspecified organism (principal); G93.41 Metabolic encephalopathy; N18.6 End stage renal disease; K72.00 Acute and subacute hepatic failure without coma; E87.1 Hypo-osmolality and hyponatremia; A04.71 Enterocolitis due to Clostridium difficile, recurrent; I12.0 Hypertensive chronic kidney disease with stage 5 chronic kidney disease or end stage renal disease; R65.20 Severe sepsis without septic shock; E10.22 Type 1 diabetes mellitus with diabetic chronic kidney disease; I48.0 Paroxysmal atrial fibrillation; D89.0 Polyclonal hypergammaglobulinemia; Z99.2 Dependence on renal dialysis; Z79.4 Long term (current) use of insulin; Z79.899 Other long term (current) drug therapy; Z87.891 Personal history of nicotine dependence; E87.5 Hyperkalemia; E03.9 Hypothyroidism, unspecified; D64.9 Anemia, unspecified; H40.9 Unspecified glaucoma; E79.0 Hyperuricemia without signs of inflammatory arthritis and tophaceous disease; F32.9 Major depressive disorder, single episode, unspecified; I16.0 Hypertensive urgency
CPT/HCPCS: 36600; 70450; 71045; 80048; 80053; 80076; 81001; 82803; 82962; 83605; 83735; 84100; 84484; 85025; 85610; 85730; 86704; 86705; 86706; 86708; 86709; 86803; 87040; 87340; 87449; 87493; 87506; 87641; 90937; 92526; 93005; 94640; 94667; 97162; 97165; 97530; 97802; 99285; J0885; J1756; J7030; J7040; J7050; A4216; G0257; J0610

== ENCOUNTER → 2017-12-20 10:24 | Outpatient (CLI) | payer OTHER, SELFPAY ==
[2017-12-20 11:33] LABS: White Blood Count 4.8 K/mm3 (4.4-11.0)
== END ==
PROVIDERS: Visit Provider Internal Medicine Nephrology
DX: R78.81 Bacteremia (principal); B96.89 Other specified bacterial agents as the cause of diseases classified elsewhere
CPT/HCPCS: 85048

== ENCOUNTER 2018-11-22 13:32 | Inpatient (IN) | payer MEDICARE, OTHER, MEDICAID, SELFPAY ==
[2017-10-16 19:55] VITALS: BMI 29.4
[2018-11-22] VITALS (17 sets, daily range): BP systolic 105–138; BP diastolic 56–81; PULSE 16–54; RESP 12–20; TEMP 35.8–36.7; O2SAT 80–98; BMI 31.3; BMI 29.8; BMI 29.9
--- NOTE | 2018-11-22 13:54 | EKG12_ITS ---
Test Reason : WEAKNESS Blood Pressure : / mmHG Vent. Rate : 049 BPM Atrial Rate : 049 BPM P-R Int : 264 ms QRS Dur : 106 ms QT Int : 494 ms P-R-T Axes : 033 008 020 degrees QTc Int : 446 ms Sinus bradycardia with 1st degree A-V block Otherwise normal ECG Confirmed by ALONZO JEREZ, GERRY ([id number]), food editor ADRIENNE ROACH ([id number]) on 11/25/2018 1:54:48 PM Referred By: DYLAN Confirmed By:GERRY ROSADO MD
--- NOTE | 2018-11-22 13:54 | RAD_ITS ---
STUDY: X-RAY CHEST REASON FOR EXAM: Female, 48 years old. Dyspnea and weakness TECHNIQUE: AP COMPARISON: 10/17/2017 FINDINGS: EKG leads project over the chest. Dialysis catheter has been removed. Lungs are hypoinflated but no airspace consolidation. Mild residual scarring in the left lower lobe. There is no demonstrated pleural abnormality. Normal size heart. Normal mediastinum and demarcus. Normal visualized pulmonary arteries. Normal visualized aortic arch and descending thoracic aorta. No acute bony process. There is no demonstrated abnormality of the visualized soft tissue structures of the upper abdomen. RAD/Chest 1 View (Portable) IMPRESSION: 1. Hypoinflation. No airspace consolidation. Electronically Signed: Virgilio Triplett MD at 14:23 EDT , Service support ,
[2018-11-22 14:17] LABS: Absolute Lymphocyte Count 1.04 X10^3/ul (0.83-4.51); Absolute Neutrophil Count 4.2 X10^3/uL (2.0-7.7); Basophil# 0.02 X10^3/uL; Basophil% 0.3 % (0-1); Eosinophil# 0.12 X10^3/uL; Hematocrit 30.5 % (37-47); Hemoglobin 10.1 g/dl (12.0-15.0); Lymphocyte # 1.04 X10^3/ul (4.0); Lymphocyte % 17.6 % (19-41); Mean Corp Hgb Conc 33.1 g/gl (32-36); Mean Corpuscular Hgb 32.5 pg (27.0-32.0); Mean Corpuscular Volume 98.1 fL (81-99); Mean Platelet Vol. 11.9 fl (6.2-12.0); Monocyte# 0.53 X10^3/uL; Neutrophil # 4.17 X10^3/uL (2.7-7.7); Neutrophil % 70.8 % (47-70); Platelet Count 127 K/mm3 (150-450); RBC Distribution Width CV 14.1 % (11.6-14.6); RBC Distribution Width SD 47.5 fl (35.1-43.9); Red Blood Count 3.11 M/mm3 (4.2-5.4); White Blood Count 5.9 K/mm3 (4.4-11.0)
[2018-11-22 14:19] LABS: POSITIVE COUNT NO; POSITIVE DIFFERENTIAL NO; POSITIVE MORPHOLOGY NO
[2018-11-22 14:35] LABS: Anion Gap 13 (5-15); BUN 77 mg/dL (7-18); Calcium,Total 8.6 mg/dL (8.5-10.1); Chloride 94 mmol/L (98-107); Creatinine, Serum 8.57 mg/dL (0.55-1.02); EST Glomerular Filtration Rate 5 mL/min (>60); Est Glom Filt Rate - Afr Amer 6 mL/min (>60); Estimated Creatinine Clearance 7.22 ml/min; Glucose 73 mg/dL (74-106); Potassium 6.9 mmol/L (3.5-5.1); Sodium Level 130 mmol/L (136-145)
--- NOTE | 2018-11-22 14:57 | NURSING ---
DR BOATENG FOR DR STANLEY PAGEYolanda [id number]
--- NOTE | 2018-11-22 15:06 | PCM.HP.STD ---
Problem List (1) Metabolic acidosis Status: Resolved (2) Abnormal LFTs Status: Resolved (3) Lactic acidosis Status: Resolved (4) Hyperphosphatemia Status: Resolved (5) End stage renal disease on dialysis Status: Chronic (6) Polyclonal gammopathy Status: Chronic (7) Severe sepsis Status: Resolved (8) PAF (paroxysmal atrial fibrillation) Status: Chronic (9) Glaucoma Status: Chronic Qualifiers: Glaucoma type: unspecified Laterality: unspecified laterality Qualified Code(s): H40.9 - Unspecified glaucoma (10) Depression Status: Chronic Qualifiers: Depression Type: unspecified Qualified Code(s): F32.9 - Major depressive disorder, single episode, unspecified (11) Hyperuricemia Status: Chronic (12) Hypertension Status: Chronic Qualifiers: Hypertension type: essential hypertension Qualified Code(s): I10 - Essential (primary) hypertension (13) Metabolic encephalopathy Status: Acute (14) Hyperkalemia Status: Acute (15) Acute respiratory failure with hypoxia Status: Acute (16) DM type 1 (diabetes mellitus, type 1) Status: Chronic Qualifiers: Diabetes mellitus complication status: with unspecified complications (17) Hyponatremia Status: Acute (18) Anemia Status: Chronic Qualifiers: Chronic kidney disease stage: on chronic dialysis History of Present Illness Date of Admission: 11/22/18 Chief Complaint: Shortness of breath The patient is a 48 year old F with past medical history significant end-stage renal disease on hemodialysis on Wednesdays and Fridays who presented with shortness of breath. Patient apparently missed his dialysis on 11/21/2018. She states that she was sick and she was hypoglycemic did not have a good recollection of the events leading to her missing dialysis. She was seen by his sister on the morning of her admission who felt patient looks sick patient was subsequently brought to the emergency department found to be hypokalemic with potassium of 6.9. EGD demonstrated sinus bradycardia with first degree AV block. Patient did receive Kayexalate insulin calcium gluconate in the ED and subsequently admitted to the intensive care unit. Did speak with patient's suppression crew leader for emergency dialysis prior to patient being admitted Past Medical History Past Medical History (Chronic Problems): Chronic Problems End stage renal disease on dialysis (Chronic) Polyclonal gammopathy (Chronic) PAF (paroxysmal atrial fibrillation) (Chronic) Glaucoma (Chronic) Depression (Chronic) Hyperuricemia (Chronic) Hypertension (Chronic) DM type 1 (diabetes mellitus, type 1) (Chronic) Anemia (Chronic) Medical History: Medical History (Last Reviewed 11/22/18 @ 15:53 by Daniel Lawson MD) End stage renal disease on dialysis (Chronic) N18.6, Z99.2 Polyclonal gammopathy (Chronic) D89.0 Severe sepsis (Acute) A41.9, R65.20 PAF (paroxysmal atrial fibrillation) (Chronic) I48.0 Glaucoma (Chronic) H40.9 Depression (Chronic) F32.9 Hyperuricemia (Chronic) E79.0 Hypertension (Chronic) I10 Metabolic encephalopathy (Acute) G93.41 Hyperkalemia (Acute) E87.5 Acute respiratory failure with hypoxia (Acute) J96.01 DM type 1 (diabetes mellitus, type 1) (Chronic) E10.9 Hyponatremia (Acute) E87.1 Anemia (Chronic) D64.9 CAP (community acquired pneumonia) (Resolved) J18.9 Clostridium difficile enterocolitis (Resolved) A04.72 DKA (diabetic ketoacidoses) (Resolved) E13.10 Human metapneumovirus pneumonia (Resolved) J12.3 Hypercalcemia (Resolved) E83.52 Hypoglycemia (Resolved) E16.2 Malnutrition (Resolved) E46 Pulmonary edema (Resolved) J81.1 Seizure (Resolved) R56.9 ddue to hypoglycemia Warfarin-induced coagulopathy (Resolved) D68.32, T45.515A Allergies Penicillins [PCN] Allergy (Verified 11/22/18 13:36) Hives Home Medications: Ambulatory Orders Medication Instructions Recorded Albuterol Inhaler [Ventolin Hfa] 2 puff INHALATION Q4H PRN PRN 10/28/16 Allopurinol [Zyloprim] 200 mg PO DAILY 10/28/16 Amlodipine [Norvasc] 10 mg PO DAILY 10/28/16 Ergocalciferol [Vitamin D] 50,000 unit PO MO 10/28/16 Fluticasone 0.05% [Flonase Nasal 1 spray NASAL DAILY 10/28/16 [place]] Gabapentin [Neurontin] 300 mg PO QHS 10/28/16 Latanoprost 0.005% [Xalatan 1 drop EACH EYE QHS 10/28/16 Opthalmic] Venlafaxine XR [Effexor Xr] 150 mg PO DAILY 10/28/16 Insulin Glargine [Lantus SoloStar 10 units SC QHS 05/17/17 Pen] Sevelamer Carbonate [Renvela] 800 mg PO TID 05/17/17 ALPRAZolam [Xanax] 0.5 mg PO TID PRN PRN 11/22/18 Ascorbic Acid [Vitamin C] 500 mg PO DAILY 11/22/18 Insulin Aspart [Novolog Flexpen 0 units SUBCUT TID 11/22/18 ([facility])] Lisinopril [Prinivil] 10 mg PO DAILY 11/22/18 Ropinirole HCl [Requip] 0.5 mg PO QHS 11/22/18 Vit B Comp No.3/Folic/C/Biotin 1 ea PO DAILY 11/22/18 [Nephro-Reggie Rx Tablet] Surgical History: hysterectomy, - - PD catheter placement, tunneled dialysis catheter placement, AVF 06/08/17. Psychiatric History: Anxiety, Depression PURCHASING/RECEIVING History: No pertinent PURCHASING/RECEIVING history Smoking Status: Current every day smoker - *Family History Paternal History Items: Heart Disease Review of Systems Constitutional: Reports: Anorexia, Malaise, Weakness HEENT: Denies: Head Aches, Sinus Congestion, Sinus Drainage Respiratory: Reports: Shortness of Breath Gastrointestinal: Denies: Abdominal Pain, Hematemesis, Hematochezia, Nausea, Melena, Vomiting Genitourinary: Denies: Dysuria, Frequency, Hematuria, Urgency Musculoskeletal: Denies: Joint Pain, Joint Tenderness Skin: Denies: Rash Neurological: Denies: Focal weakness, Numbness, Tingling Psychiatric: Denies: Homicidal Ideations, Suicidal Ideations Hematologic/ Lymphatic: Denies: Easy Bruising, Easy Bleeding VTE Information - Inpt Only VTE Present on Admission: No VTE Mechan Device Prophylaxis: None VTE Pharm Prophylaxis ordered?: Yes Objective: GENERAL: Patient appears ill looking HEENT: Atraumatic; EYES; Anicteric, Normal Conjunctiva NECK; supple, normal thyroid, . RESPIRATORY: Diminished to auscultation bilaterally, CARDIOVASCULAR: Regular S1 S2, GI: soft, non-tender, normoactive bowel sounds, : No Renal angle tenderness; EXTREMITIES: No edema, no clubbing, MUSCULOSKELETAL: No Joint Tenderness; NEURO: Awake; no lateralizing signs. SKIN: No Rash PSYCH; Normal affect - Physical Exam Vital Signs Temp Pulse Resp BP Pulse Ox 97.7 F L 48 L 20 H 111/56 L 80 11/22/18 13:33 11/22/18 13:33 11/22/18 13:33 11/22/18 13:33 11/22/18 13:33 Oxygen Delivery Method Room Air Weight: 86.6 kg Body Mass Index (BMI) 31.3 Finger Stick Blood Glucose 283 Laboratory Tests Past 24 Hrs 11/22/18 11/22/18 14:00 14:00 WBC 5.9 RBC 3.11 L Hgb 10.1 L Hct 30.5 L MCV 98.1 MCH 32.5 H MCHC 33.1 RDW 14.1 RDW Differential 47.5 H Plt Count 127 L MPV 11.9 Immature Gran % (Auto) 0.300 Neut % (Auto) 70.8 H Lymph % (Auto) 17.6 L [place] % (Auto) 9.0 Eos % (Auto) 2.0 Baso % (Auto) 0.3 Absolute Neuts (auto) 4.2 Absolute Lymphs (auto) 1.04 Total Counted Not Reportable Sodium 130 L Potassium 6.9 H* Chloride 94 L Carbon Dioxide 23.0 Anion Gap 13 BUN 77 H Creatinine 8.57 H* Estim Creat Clear Calc 7.22 Est GFR (MDRD) Af Amer 6 L Est GFR (MDRD) Non-Af 5 L BUN/Creatinine Ratio 9.0 L Glucose 73 L Calcium 8.6 Troponin I < 0.015 Assessment/Plan All Active Problems Metabolic acidosis (Resolved) Abnormal LFTs (Resolved) Lactic acidosis (Resolved) Hyperphosphatemia (Resolved) Severe sepsis (Resolved) Metabolic encephalopathy (Acute) Hyperkalemia (Acute) Acute respiratory failure with hypoxia (Acute) Hyponatremia (Acute) CAP (community acquired pneumonia) (Resolved) Clostridium difficile enterocolitis (Resolved) DKA (diabetic ketoacidoses) (Resolved) Human metapneumovirus pneumonia (Resolved) Hypercalcemia (Resolved) Hypoglycemia (Resolved) Malnutrition (Resolved) Pulmonary edema (Resolved) Seizure (Resolved) Warfarin-induced coagulopathy (Resolved) Patient is a 48-year-old lady with end-stage renal disease secondary to diabetes mellitus type 1 presented with progressive generalized weakness, shortness of breath. Patient was found to be hyperkalemic with potassium of 6.9 1. Hyperkalemia secondary to end-stage renal disease patient did miss her last dialysis. With patient having EKG changes emergency treatment was initiated in the emergency department with calcium gluconate, insulin as well as Kayexalate. Consultation was placed to patient's suppression crew leader Dr. Tomas did speak to him plan is for patient undergo emergency dialysis 2. Diabetes mellitus type 1 with complications including ESRD ; Patient is long-acting insulin as well as her scheduled pre-meal insulin continued in addition to Accu-Cheks before meals and at bedtime with sliding scale coverage 3. End-stage renal disease on hemodialysis schedule Wednesdays and Fridays as stated above she did miss a dialysis on 11/21/2018. Consult has been placed to patient's suppression crew leader for dialysis orders 4. Acute hypoxic respiratory failure secondary to fluid overload patient was placed on supplemental oxygen 5. Anemia secondary to anemia of chronic kidney disease hemoglobin on admission 10.1 monitoring H&H with plans to transfuse if patient becomes symptomatic or hemoglobin falls below 7 6. Hypertension blood pressure stable 7. Hypothyroidism-patient is on levothyroxine home dose continued 8. Depression with anxiety patient is on Effexor in as well as Xanax 9. Peripheral neuropathy patient is on gabapentin 10. Obesity with BMI of 31.3 11. DVT prophylaxis Lovenox Code Visit Inpatient E&M: [id number] Init Hosp L3
--- NOTE | 2018-11-22 15:07 | NURSING ---
ICU HYPERKALEMIA KITTOE
--- NOTE | 2018-11-22 15:12 | NURSING ---
DR CASTANO IN ROOM
--- NOTE | 2018-11-22 15:18 | ED.DCSUM_ITS ---
- ER Visit Summary Date of Service: 11/22/18 Chief Complaint: [Has weakness and nausea and patient missed last 2 dialysis appointments] History of Present Illness: The patient is a 48 F [presents to the emergency department complaint of not feeling well. Patient is not been feeling well for several days. Patient's not sure why she missed her last 2 dialysis appointments. Patient's had intermittent episodes of nausea and vomiting. She denies any diarrhea. Patient denies chest pain or shortness of breath. Per her sister patient's been somewhat more confused. She has history of diabetes, hypertension, and end-stage renal disease.] Physical Examination: [HEENT-PERRLA, EOMI. Cranial nerves II through XII grossly intact. TMs clear. Mucous membranes are dry. No adenopathy. Cardiovascular-regular rate and rhythm without murmur or ectopy Lungs-clear to auscultation, chest wall stable without crepitus or subcu emphysema Abdomen-normoactive bowel sounds, soft, nontender, no rebound or rigidity, no peritoneal signs. Extremities-intact ?4, normal range of motion, normal pulses, atraumatic] Test Results: [EKG obtained on arrival showed a sinus bradycardia with a ventricular rate of 49 bpm with a first-degree AV block. CBC with differential 5.9, hemoglobin 10, hematocrit 30, place 1.7. Chemistry shows sodium 130, potassium 6.9, chloride 94, BUN 77 creatinine 8.57. Troponin is less than 1015. Chest x-ray showed hypoinflation otherwise nothing acute.] Emergency Department Course and Treatment: [Patient was ordered calcium chloride as well as sodium bicarb as well as dextrose and insulin and Kayexalate. I will contact nephrology tape controlled machine stitcher for emergent dialysis.] Treatment Plan: [Admit for emergent dialysis] Disposition: [Admit] Impression: [Acute on chronic renal failure -Hyperkalemia] This note was generated with [employer] dictation software. It may contain incorrect words, spelling, and punctuation that were not noted in review of the chart prior to signing ED Disposition - Plan for ED Patient: Referrals: Elijah Curtis MD [Primary Care Provider] -
--- NOTE | 2018-11-22 15:19 | NURSING ---
PAGED DR BOATENG FOR DR RICHARDSON
--- NOTE | 2018-11-22 15:20 | NURSING ---
ICU 4
[2018-11-22] MEDS: Sodium Polystyrene Sulfonate 15 GM/60 ML UDC 30 GM PO (15:24)
[2018-11-22] MEDS: Dextrose 50%-Water 25 GM/50 ML DISP.SYRIN IV ×2 (15:25→17:20)
--- NOTE | 2018-11-22 15:30 | NURSING ---
DR OSBORNE FOR DR RICHARDSON
[2018-11-22] MEDS: Calcium Chloride 1 GM/10 ML Syringe IV (15:31)
[2018-11-22] MEDS: Sodium Bicarbonate 8.4% 50 ML Syringe 50 MEQ IV (15:38)
[2018-11-22 17:15] LABS: Bedside Glucose 53 mg/dL (70-110)
[2018-11-22 18:01] LABS: Bedside Glucose 147 mg/dL (70-110)
--- NOTE | 2018-11-22 18:26 | PCM.CONS.R ---
Problem List (1) End stage renal disease on dialysis Status: Chronic (2) Hyperkalemia Status: Acute Consultation - Renal PCP/ Referring MD: Requesting physician: [] Primary care physician: Elijah Curtis MD - History of Present Illness History of Present Illness: The patient is a 48 year old F h/o ESRD on MWF. Pt missed Saturday HD session due to low blood sugar. Pt was brought in today for SOB. In ED she was found to have hyperkalemia and bradycardic with HR is 40's. Pt was given kayexalate and IV calcium . Pt was then admitted to ICU I was contacted for urgent HD HD session was arranged. Pt seen during HD session today ROS: 12 systems review is negative[] - Allergies Allergies: Allergies Penicillins [PCN] Allergy (Verified 11/22/18 13:36) Hives - Current Medications Current Medications: Current Medications Acetaminophen (Tylenol) 650 mg PO Q6H PRN PRN PRN Reason: Mild Pain (1-3)/Temp > 100.7 F Al Hydroxide/Mg Hydroxide (Mylanta Ii) 30 ml PO Q6H PRN PRN PRN Reason: Gastric Burning Albuterol Sulfate (Ventolin Aerosols) 2.5 mg INHALATION Q2H PRN PRN PRN Reason: SOB/Wheezing Allopurinol (Zyloprim) 200 mg PO DAILY@0800 [place] Alprazolam (Xanax) 0.5 mg PO TID PRN PRN PRN Reason: ANXIETY Amlodipine Besylate (Norvasc) 10 mg PO DAILY [place] Ascorbic Acid (Vitamin C) 500 mg PO DAILY@0800 [place] Dextrose (D50w Syringe) 0 gm IV X1 PRN; Protocol PRN Reason: Hypoglycemia Last Admin: 11/22/18 17:20 Dose: 50 gm Documented by: Ergocalciferol (Vitamin D) 50,000 unit PO Mo@1000 [place] Fluticasone Propionate (Flonase Nasal [place]) 1 spray NASAL DAILY [place] Gabapentin (Neurontin) 300 mg PO QHS [place] Glucagon () 1 mg IM .X1 PRN PRN Reason: Hypoglycemia Heparin Sodium (Porcine) (Heparin Na) 5,000 unit SC Q8 [place] Sodium Chloride () 250 mls @ 15 mls/hr IV .[id number] PRN PRN Reason: SALINE FLUSH Sodium Chloride () 500 mls @ 15 mls/hr IV .[id number] PRN PRN Reason: SALINE FLUSH Insulin Glargine (Lantus (Bkc)) 10 units SC QHS [facility] Insulin Human Lispro (Humalog Kwikpen ([facility])) 0 unit SC ACHS [facility]; Protocol Last Admin: 11/22/18 17:04 Dose: Not Given Documented by: Latanoprost (Xalatan Opthalmic) 1 drop EACH EYE QHS [facility] Melatonin (Melatonin) 3 mg PO QHS PRN PRN PRN Reason: INSOMNIA Multivit/Ca Carb/B Cmplx/FA/Prenat (Nephrocaps, Renaphro) 1 capsule PO DAILY [facility] Ondansetron HCl (Zofran) 4 mg IV Q8H PRN PRN PRN Reason: NAUSEA/VOMITING Oxycodone HCl (Oxyir) 5 mg PO Q4H PRN PRN PRN Reason: Moderate pain (4-6/10) Pramipexole Dihydrochloride (Mirapex) 0.25 mg PO QHS [facility] Promethazine HCl (Phenergan) 25 mg IM Q6H PRN PRN PRN Reason: Breakthrough Nausea/Vomiting Senna/Docusate Sodium (Senokot-S, [place]-Colace) 2 tablet PO BID PRN PRN PRN Reason: Constipation Sevelamer Carbonate (Renvela) 800 mg PO TIDCM [facility] Sodium Chloride () 10 - 40 ml IV UD PRN PRN Reason: SALINE FLUSH Venlafaxine HCl (Effexor Xr) 150 mg PO DAILY [facility] - Past Medical History Past Medical History (Chronic Problems): Chronic Problems (Last Reviewed 11/22/18 @ 15:53 by Daniel Lawson MD) End stage renal disease on dialysis (Chronic) Polyclonal gammopathy (Chronic) PAF (paroxysmal atrial fibrillation) (Chronic) Glaucoma (Chronic) Depression (Chronic) Hyperuricemia (Chronic) Hypertension (Chronic) DM type 1 (diabetes mellitus, type 1) (Chronic) Anemia (Chronic) - Past Surgical History Surgical History: hysterectomy, - - PD catheter placement, tunneled dialysis catheter placement, AVF 06/08/17. - Social History Smoking Status: Current every day smoker - Family History Maternal History Items: No pertinent history Paternal History Items: Heart Disease - Physical Exam General: Alert, Oriented x3 HEENT: Atraumatic Oral: Moist Mucosa Neck: Supple, No JVD Lungs: Clear to auscultation, Normal air movement, No rhonchi, No wheeze Cardiovascular: Regular rate, Regular Rhythm, Normal S1, Normal S2 Abdomen: Bowel Sounds Present, Soft, Non Tender, Non-Distended Extremities: No clubbing, No cyanosis, No edema Skin: No rashes Musculoskeletal: No Tenderness to Palpation of Joints or Extremities Lymphatic: No Cervical, Supraclavicular, or Inguinal Adenopathy Neurological: Cranial nerves II-XII grossly intact, Neuro grossly intact Psych/Mental Status: Appropriate Vital Signs Temp Pulse Resp BP Pulse Ox 97.0 F L 53 L 12 116/63 96 11/22/18 16:30 11/22/18 16:30 11/22/18 16:30 11/22/18 16:30 11/22/18 16:50 Oxygen Flow Rate (L/min) 2 Oxygen Delivery Method Mechanical Ventilator Weight: 83.9 kg Body Mass Index (BMI) 29.8 Finger Stick Blood Glucose 283 Intake and Output for Last 24 Hours 11/20/18 11/21/18 11/22/18 23:59 23:59 23:59 Intake Total 360 / 360 Balance 360 / 360 Laboratory Tests Past 24 Hrs 11/22/18 11/22/18 14:00 14:00 WBC 5.9 RBC 3.11 L Hgb 10.1 L Hct 30.5 L MCV 98.1 MCH 32.5 H MCHC 33.1 RDW 14.1 RDW Differential 47.5 H Plt Count 127 L MPV 11.9 Immature Gran % (Auto) 0.300 Neut % (Auto) 70.8 H Lymph % (Auto) 17.6 L [place] % (Auto) 9.0 Eos % (Auto) 2.0 Baso % (Auto) 0.3 Absolute Neuts (auto) 4.2 Absolute Lymphs (auto) 1.04 Total Counted Not Reportable Sodium 130 L Potassium 6.9 H* Chloride 94 L Carbon Dioxide 23.0 Anion Gap 13 BUN 77 H Creatinine 8.57 H* Estim Creat Clear Calc 7.22 Est GFR (MDRD) Af Amer 6 L Est GFR (MDRD) Non-Af 5 L BUN/Creatinine Ratio 9.0 L Glucose 73 L Calcium 8.6 Troponin I < 0.015 POC Glucose 11/22/18 11/22/18 17:56 17:09 POC Glucose 147 H 53 L Assessment/Plan All Active Problems (Last Reviewed 11/22/18 @ 15:53 by Daniel Lawson MD) Metabolic acidosis (Resolved) Abnormal LFTs (Resolved) Lactic acidosis (Resolved) Hyperphosphatemia (Resolved) Severe sepsis (Resolved) Metabolic encephalopathy (Acute) Hyperkalemia (Acute) Acute respiratory failure with hypoxia (Acute) Hyponatremia (Acute) CAP (community acquired pneumonia) (Resolved) Clostridium difficile enterocolitis (Resolved) DKA (diabetic ketoacidoses) (Resolved) Human metapneumovirus pneumonia (Resolved) Hypercalcemia (Resolved) Hypoglycemia (Resolved) Malnutrition (Resolved) Pulmonary edema (Resolved) Seizure (Resolved) Warfarin-induced coagulopathy (Resolved) 1- ESRD on MWF HD schedule Pt missed Tuesday 11/21 HD session. Pt presented with hyperkalemia Pt was seen during HD session today in ICU: BQ 400 DQ 600 UF 2L Next HD session 11/24 2- Hyperkalemia: due to missing HD session HD session today with 2 K dialysate check K today after HD Renal team will continue to follow
--- NOTE | 2018-11-22 18:58 | DIALYSIS ---
Hemodialysis x 2 hours with 2K bath; tolerated well. Removed = -2500; pt having liquid diarrhea last hour of treatment. LUAVF needles pulled; stasis complete; DSD applied; +bruit +thrill. Report given.
[2018-11-22] MEDS: SEVELAMER CARBONATE 800 MG TABLET PO (20:04)
[2018-11-22] MEDS: Pramipexole Di-HCl 0.25 MG Tablet PO (21:23)
[2018-11-22] MEDS: Gabapentin 300 MG Capsule PO (21:23)
[2018-11-22] MEDS: Latanoprost 0.005% 1 Bottle 1 DRP EACH EYE (21:24)
[2018-11-22] MEDS: Heparin Injection (Vial) 5,000 UNIT/ML VIAL 5000 UNIT SC (21:24)
[2018-11-22] MEDS: MELATONIN 3 MG TABLET PO (21:25)
[2018-11-22] MEDS: 0.9% NaCl Peripheral Flush Adult/Peds IV (21:27)
[2018-11-22 21:31] LABS: Bedside Glucose 140 mg/dL (70-110)
[2018-11-22 21:50] LABS: Anion Gap 11 (5-15); BUN 50 mg/dL (7-18); BUN/Creat Ratio 8.3 RATIO (10-20); Calcium,Total 8.1 mg/dL (8.5-10.1); Chloride 97 mmol/L (98-107); Creatinine, Serum 6.06 mg/dL (0.55-1.02); EST Glomerular Filtration Rate 8 mL/min (>60); Est Glom Filt Rate - Afr Amer 10 mL/min (>60); Estimated Creatinine Clearance 10.63 ml/min; Glucose 136 mg/dL (74-106); Potassium 4.9 mmol/L (3.5-5.1); Sodium Level 138 mmol/L (136-145)
[2018-11-23] VITALS (18 sets, daily range): BP systolic 110–163; BP diastolic 58–79; PULSE 48–63; RESP 13–20; TEMP 35.8–36.6; O2SAT 92–100
[2018-11-23 04:28] LABS: Absolute Neutrophil Count 4.1 X10^3/uL (2.0-7.7); Basophil# 0.02 X10^3/uL; Basophil% 0.3 % (0-1); Eosinophil# 0.25 X10^3/uL; Eosinophils% 4.2 % (0-5); Hematocrit 28.2 % (37-47); Hemoglobin 9.4 g/dl (12.0-15.0); Lymphocyte % 18.5 % (19-41); Mean Corp Hgb Conc 33.3 g/gl (32-36); Mean Corpuscular Hgb 32.5 pg (27.0-32.0); Mean Corpuscular Volume 97.6 fL (81-99); Mean Platelet Vol. 11.3 fl (6.2-12.0); Monocyte# 0.53 X10^3/uL; Monocyte% 8.9 % (0-10); Neutrophil # 4.05 X10^3/uL (2.7-7.7); Neutrophil % 67.9 % (47-70); Platelet Count 120 K/mm3 (150-450); RBC Distribution Width CV 14.1 % (11.6-14.6); RBC Distribution Width SD 47.2 fl (35.1-43.9); Red Blood Count 2.89 M/mm3 (4.2-5.4)
[2018-11-23 04:31] LABS: POSITIVE COUNT NO; POSITIVE DIFFERENTIAL NO; POSITIVE MORPHOLOGY NO
[2018-11-23 04:37] LABS: Anion Gap 12 (5-15); BUN 55 mg/dL (7-18); BUN/Creat Ratio 8.3 RATIO (10-20); Chloride 97 mmol/L (98-107); Creatinine, Serum 6.62 mg/dL (0.55-1.02); EST Glomerular Filtration Rate 7 mL/min (>60); Est Glom Filt Rate - Afr Amer 9 mL/min (>60); Estimated Creatinine Clearance 9.73 ml/min; Glucose 128 mg/dL (74-106); Magnesium 2.6 mg/dL (1.6-2.6); Potassium 4.5 mmol/L (3.5-5.1); Sodium Level 137 mmol/L (136-145)
[2018-11-23] MEDS: Heparin Injection (Vial) 5,000 UNIT/ML VIAL 5000 UNIT SC ×3 (05:43→22:05)
[2018-11-23 07:00] LABS: Bedside Glucose 101 mg/dL (70-110)
--- NOTE | 2018-11-23 07:07 | PCM.PN.HOSP ---
Subjective: Stool for C. difficile obtained as a result of persistent diarrhea came back positive patient started on p.o. vancomycin. Patient also underwent emergency dialysis Objective: GENERAL: Patient appears ill looking HEENT: Atraumatic; EYES; Anicteric, Normal Conjunctiva NECK; supple, normal thyroid, . RESPIRATORY: Diminished to auscultation bilaterally, CARDIOVASCULAR: Regular S1 S2, GI: soft, non-tender, distended : No Renal angle tenderness; EXTREMITIES: No edema, no clubbing, MUSCULOSKELETAL: No Joint Tenderness; NEURO: Awake; no lateralizing signs. SKIN: No Rash PSYCH; Normal affect Vitals/I&O's: Vital Signs Temp Pulse Resp BP Pulse Ox 97.4 F L 50 L 13 153/79 H 99 11/23/18 04:00 11/23/18 06:00 11/23/18 06:00 11/23/18 06:00 11/23/18 06:00 Oxygen Flow Rate (L/min) 2 Oxygen Delivery Method Nasal Cannula Weight: 80.1 kg Body Mass Index (BMI) 29.8 Finger Stick Blood Glucose 283 Intake and Output for Last 24 Hours 11/21/18 11/22/18 11/23/18 23:59 23:59 23:59 Intake Total 480 / 480 0 / 0 Output Total 5600 / 5600 0 / 0 Balance -5120 / -5120 0 / 0 Microbiology Past 72 Hours 11/22/18 18:15 Stool C. difficile DNA Amplification - Final Toxigenic C. difficile DNA Laboratory Results 11/22/18 14:00: WBC 5.9, RBC 3.11 L, Hgb 10.1 L, Hct 30.5 L, MCV 98.1, MCH 32.5 H, MCHC 33.1, RDW 14.1, RDW Differential 47.5 H, Plt Count 127 L, MPV 11.9, Immature Gran % (Auto) 0.300, Neut % (Auto) 70.8 H, Lymph % (Auto) 17.6 L, [place] % (Auto) 9.0, Eos % (Auto) 2.0, Baso % (Auto) 0.3, Absolute Neuts (auto) 4.2, Absolute Lymphs (auto) 1.04, Total Counted Not Reportable 11/22/18 14:00: Sodium 130 L, Potassium 6.9 H*, Chloride 94 L, Carbon Dioxide 23.0, Anion Gap 13, BUN 77 H, Creatinine 8.57 H*, Estim Creat Clear Calc 7.22, Est GFR (MDRD) Af Amer 6 L, Est GFR (MDRD) Non-Af 5 L, BUN/Creatinine Ratio 9.0 L, Glucose 73 L, Calcium 8.6, Troponin I < 0.015 11/22/18 17:09: POC Glucose 53 L 11/22/18 17:56: POC Glucose 147 H 11/22/18 21:19: POC Glucose 140 H 11/22/18 21:20: Sodium 138, Potassium 4.9, Chloride 97 L, Carbon Dioxide 30.0, Anion Gap 11, BUN 50 H, Creatinine 6.06 H, Estim Creat Clear Calc 10.63, Est GFR (MDRD) Af Amer 10 L, Est GFR (MDRD) Non-Af 8 L, BUN/Creatinine Ratio 8.3 L, Glucose 136 H, Calcium 8.1 L 11/23/18 04:00: Sodium 137, Potassium 4.5, Chloride 97 L, Carbon Dioxide 28.0, Anion Gap 12, BUN 55 H, Creatinine 6.62 H, Estim Creat Clear Calc 9.73, Est GFR (MDRD) Af Amer 9 L, Est GFR (MDRD) Non-Af 7 L, BUN/Creatinine Ratio 8.3 L, Glucose 128 H, Calcium 8.0 L, Magnesium 2.6 11/23/18 04:00: WBC 6.0, RBC 2.89 L, Hgb 9.4 L, Hct 28.2 L, MCV 97.6, MCH 32.5 H, MCHC 33.3, RDW 14.1, RDW Differential 47.2 H, Plt Count 120 L, MPV 11.3, Immature Gran % (Auto) 0.200, Neut % (Auto) 67.9, Lymph % (Auto) 18.5 L, [place] % (Auto) 8.9, Eos % (Auto) 4.2, Baso % (Auto) 0.3, Absolute Neuts (auto) 4.1, Absolute Lymphs (auto) 1.10, Total Counted Not Reportable 11/23/18 06:54: POC Glucose 101 Current Medications Acetaminophen (Tylenol) 650 mg PO Q6H PRN PRN PRN Reason: Mild Pain (1-3)/Temp > 100.7 F Al Hydroxide/Mg Hydroxide (Mylanta Ii) 30 ml PO Q6H PRN PRN PRN Reason: Gastric Burning Albuterol Sulfate (Ventolin Aerosols) 2.5 mg INHALATION Q2H PRN PRN PRN Reason: SOB/Wheezing Allopurinol (Zyloprim) 200 mg PO DAILY@0800 [facility] Alprazolam (Xanax) 0.5 mg PO TID PRN PRN PRN Reason: ANXIETY Amlodipine Besylate (Norvasc) 10 mg PO DAILY [facility] Ascorbic Acid (Vitamin C) 500 mg PO DAILY@0800 [facility] Dextrose (D50w Syringe) 0 gm IV X1 PRN; Protocol PRN Reason: Hypoglycemia Last Admin: 11/22/18 17:20 Dose: 50 gm Documented by: Ergocalciferol (Vitamin D) 50,000 unit PO Mo@1000 [facility] Fluticasone Propionate (Flonase Nasal [place]) 1 spray NASAL DAILY [facility] Gabapentin (Neurontin) 300 mg PO QHS [facility] Last Admin: 11/22/18 21:23 Dose: 300 mg Documented by: Glucagon () 1 mg IM .X1 PRN PRN Reason: Hypoglycemia Heparin Sodium (Porcine) (Heparin Na) 5,000 unit SC Q8 [facility] Last Admin: 11/23/18 05:43 Dose: 5,000 unit Documented by: Sodium Chloride () 250 mls @ 15 mls/hr IV .[id number] PRN PRN Reason: SALINE FLUSH Sodium Chloride () 500 mls @ 15 mls/hr IV .[id number] PRN PRN Reason: SALINE FLUSH Insulin Glargine (Lantus (Bkc)) 10 units SC QHS [facility] Last Admin: 11/22/18 21:24 Dose: Not Given Documented by: Insulin Human Lispro (Humalog Kwikpen (Bk)) 0 unit SC ACHS [facility]; Protocol Last Admin: 11/22/18 21:24 Dose: Not Given Documented by: Latanoprost (Xalatan Opthalmic) 1 drop EACH EYE QHS [facility] Last Admin: 11/22/18 21:24 Dose: 1 drop Documented by: Melatonin (Melatonin) 3 mg PO QHS PRN PRN PRN Reason: INSOMNIA Last Admin: 11/22/18 21:25 Dose: 3 mg Documented by: Multivit/Ca Carb/B Cmplx/FA/Prenat (Nephrocaps, Renaphro) 1 capsule PO DAILY [facility] Ondansetron HCl (Zofran) 4 mg IV Q8H PRN PRN PRN Reason: NAUSEA/VOMITING Oxycodone HCl (Oxyir) 5 mg PO Q4H PRN PRN PRN Reason: Moderate pain (4-6/10) Pramipexole Dihydrochloride (Mirapex) 0.25 mg PO QHS [facility] Last Admin: 11/22/18 21:23 Dose: 0.25 mg Documented by: Promethazine HCl (Phenergan) 25 mg IM Q6H PRN PRN PRN Reason: Breakthrough Nausea/Vomiting Senna/Docusate Sodium (Senokot-S, [place]-Colace) 2 tablet PO BID PRN PRN PRN Reason: Constipation Sevelamer Carbonate (Renvela) 800 mg PO TIDCM [facility] Last Admin: 11/22/18 20:04 Dose: 800 mg Documented by: Sodium Chloride () 10 - 40 ml IV UD PRN PRN Reason: SALINE FLUSH Last Admin: 11/22/18 21:27 Dose: 10 ml Documented by: Vancomycin HCl () 125 mg PO Q6 [facility] Last Admin: 11/23/18 05:43 Dose: 125 mg Documented by: Venlafaxine HCl (Effexor Xr) 150 mg PO DAILY [facility] Medical Necessity - Tobacco Use Smoking Status: Current every day smoker Assessment/Plan All Active Problems (Last Reviewed 11/22/18 @ 15:53 by Daniel Lawson MD) Metabolic acidosis (Resolved) Abnormal LFTs (Resolved) Lactic acidosis (Resolved) Hyperphosphatemia (Resolved) Severe sepsis (Resolved) Metabolic encephalopathy (Acute) Hyperkalemia (Acute) Acute respiratory failure with hypoxia (Acute) Hyponatremia (Acute) CAP (community acquired pneumonia) (Resolved) Clostridium difficile enterocolitis (Resolved) DKA (diabetic ketoacidoses) (Resolved) Human metapneumovirus pneumonia (Resolved) Hypercalcemia (Resolved) Hypoglycemia (Resolved) Malnutrition (Resolved) Pulmonary edema (Resolved) Seizure (Resolved) Warfarin-induced coagulopathy (Resolved) Patient is a 48-year-old lady with end-stage renal disease secondary to diabetes mellitus type 1 presented with progressive generalized weakness, shortness of breath. Patient was found to be hyperkalemic with potassium of 6.9 1. Hyperkalemia secondary to end-stage renal disease patient did miss her last dialysis. With patient having EKG changes emergency treatment was initiated in the emergency department with calcium gluconate, insulin as well as Kayexalate. Consultation was placed to patient's concession worker Dr. Tomas did speak to him plan is for patient undergo emergency dialysis 11/23/2018: Potassium after emergency dialysis 4.5 2. Acute C. difficile colitis patient started on p.o. vancomycin 3. Diabetes mellitus type 1 with complications including ESRD ; Patient is long-acting insulin as well as her scheduled pre-meal insulin continued in addition to Accu-Cheks before meals and at bedtime with sliding scale coverage 4. End-stage renal disease on hemodialysis schedule Wednesdays and Fridays as stated above she did miss a dialysis on 11/21/2018. Consult has been placed to patient's concession worker for dialysis orders 5. Acute hypoxic respiratory failure secondary to fluid overload patient was placed on supplemental oxygen 6. Anemia secondary to anemia of chronic kidney disease hemoglobin on admission 10.1 monitoring H&H with plans to transfuse if patient becomes symptomatic or hemoglobin falls below 7 7. Hypertension blood pressure stable 8. Hypothyroidism-patient is on levothyroxine home dose continued 9. Depression with anxiety patient is on Effexor in as well as Xanax 10. Peripheral neuropathy patient is on gabapentin 11. Obesity with BMI of 31.3 12. DVT prophylaxis brain Code Visit Inpatient E&M: 68224 [facility] L[facility]
--- NOTE | 2018-11-23 07:41 | NURSING ---
report called to MS 3RN, to MS 320 per bed w/ICU staff in attendance
[2018-11-23] MEDS: Allopurinol 100 MG Tablet 200 MG PO (09:40)
[2018-11-23] MEDS: Folic Acid/Vitamin B Comp W-C 1 Capsule 1 CAP PO (09:40)
[2018-11-23] MEDS: Ascorbic Acid 500 MG Tablet PO (09:40)
[2018-11-23] MEDS: SEVELAMER CARBONATE 800 MG TABLET PO ×3 (09:41→16:42)
[2018-11-23] MEDS: Venlafaxine XR 150 MG Capsule PO (09:41)
[2018-11-23] MEDS: Insulin Lispro 100 UNIT/ML INSULN.PEN SC ×3 (11:46→23:08)
[2018-11-23 12:26] LABS: Bedside Glucose 248 mg/dL (70-110)
--- NOTE | 2018-11-23 15:52 | NURSING ---
Telelmonitor alerting on the monitor. HR on Telemonitor states 242. This nurse went back to assess pt, pt up at sink at bathroom washing hands. Pt asymptomatic. This nurse obtained vS including apical Hr at 49 and Hr via Monitor 57. BP 144/72. Sp02 was 88% on RA. Pt had taken her oxygen off. Extension tubing applied to oxygen and educated importance of keeping on continously even going to the bathroom.
--- NOTE | 2018-11-23 16:19 | PCM.PN.REN ---
Subjective: Doing well. No nausea No vomiting. No SOB - Physical Exam General: Alert, Oriented x3 HEENT: Atraumatic Oral: Moist Mucosa Neck: Supple, No JVD Lungs: Clear to auscultation, Normal air movement, No rhonchi, No wheeze Cardiovascular: Regular rate, Regular Rhythm, Normal S1, Normal S2 Abdomen: Bowel Sounds Present, Soft, Non Tender, Non-Distended Extremities: No clubbing, No cyanosis, No edema Skin: No rashes Musculoskeletal: No Tenderness to Palpation of Joints or Extremities Lymphatic: No Cervical, Supraclavicular, or Inguinal Adenopathy Neurological: Cranial nerves II-XII grossly intact, Neuro grossly intact Psych/Mental Status: Normal Affect Vital Signs Temp Pulse Resp BP Pulse Ox 97.9 F 49 L 16 135/78 H 100 11/23/18 09:45 11/23/18 11:35 11/23/18 09:45 11/23/18 09:45 11/23/18 09:45 Oxygen Flow Rate (L/min) 2 Oxygen Delivery Method Nasal Cannula Weight: 80.1 kg Body Mass Index (BMI) 29.8 Finger Stick Blood Glucose 283 Intake and Output for Last 24 Hours 11/21/18 11/22/18 11/23/18 23:59 23:59 23:59 Intake Total 480 / 480 240 / 240 Output Total 5600 / 5600 0 / 0 Balance -5120 / -5120 240 / 240 Microbiology Past 72 Hours 11/22/18 18:15 C. difficile DNA Amplification - Final Stool Toxigenic C. difficile DNA Laboratory Tests Past 24 Hrs 11/22/18 11/23/18 11/23/18 21:20 04:00 04:00 WBC 6.0 RBC 2.89 L Hgb 9.4 L Hct 28.2 L MCV 97.6 MCH 32.5 H MCHC 33.3 RDW 14.1 RDW Differential 47.2 H Plt Count 120 L MPV 11.3 Immature Gran % (Auto) 0.200 Neut % (Auto) 67.9 Lymph % (Auto) 18.5 L [place] % (Auto) 8.9 Eos % (Auto) 4.2 Baso % (Auto) 0.3 Absolute Neuts (auto) 4.1 Absolute Lymphs (auto) 1.10 Total Counted Not Reportable Sodium 138 137 Potassium 4.9 4.5 Chloride 97 L 97 L Carbon Dioxide 30.0 28.0 Anion Gap 11 12 BUN 50 H 55 H Creatinine 6.06 H 6.62 H Estim Creat Clear Calc 10.63 9.73 Est GFR (MDRD) Af Amer 10 L 9 L Est GFR (MDRD) Non-Af 8 L 7 L BUN/Creatinine Ratio 8.3 L 8.3 L Glucose 136 H 128 H Calcium 8.1 L 8.0 L Magnesium 2.6 POC Glucose 11/23/18 11/23/18 11/22/18 11:44 06:54 21:19 POC Glucose 248 H 101 140 H 11/22/18 11/22/18 17:56 17:09 POC Glucose 147 H 53 L Medical Necessity - Tobacco Use Smoking Status: Current every day smoker Assessment/Plan All Active Problems (Last Reviewed 11/22/18 @ 15:53 by Daniel Lawson MD) Metabolic acidosis (Resolved) Abnormal LFTs (Resolved) Lactic acidosis (Resolved) Hyperphosphatemia (Resolved) Severe sepsis (Resolved) Metabolic encephalopathy (Acute) Hyperkalemia (Acute) Acute respiratory failure with hypoxia (Acute) Hyponatremia (Acute) CAP (community acquired pneumonia) (Resolved) Clostridium difficile enterocolitis (Resolved) DKA (diabetic ketoacidoses) (Resolved) Human metapneumovirus pneumonia (Resolved) Hypercalcemia (Resolved) Hypoglycemia (Resolved) Malnutrition (Resolved) Pulmonary edema (Resolved) Seizure (Resolved) Warfarin-induced coagulopathy (Resolved) 1- ESRD on MWF HD schedule Pt missed Tuesday 11/21 HD session. Pt presented with hyperkalemia had HD session 11/22. Next HD session tomorrow Next HD session 11/24 2- Hyperkalemia: due to missing HD session resolved with HD Renal team will continue to follow
[2018-11-23 16:51] LABS: Bedside Glucose 267 mg/dL (70-110)
[2018-11-23 21:56] LABS: Bedside Glucose 478 mg/dL (70-110)
[2018-11-23] MEDS: Latanoprost 0.005% 1 Bottle 1 DRP EACH EYE (22:05)
[2018-11-23] MEDS: Gabapentin 300 MG Capsule PO (22:05)
[2018-11-23] MEDS: Pramipexole Di-HCl 0.25 MG Tablet PO (22:05)
[2018-11-23 22:40] LABS: Glucose 546 mg/dL (74-106)
[2018-11-23] MEDS: Insulin Lispro 100 UNIT/ML INSULN.PEN 7 UNIT SC (23:08)
[2018-11-24] VITALS (7 sets, daily range): BP systolic 132–155; BP diastolic 70–76; PULSE 56–99; RESP 16–18; TEMP 35.9–36.8; O2SAT 95–100
[2018-11-24 01:46] LABS: Bedside Glucose 346 mg/dL (70-110)
[2018-11-24] MEDS: Heparin Injection (Vial) 5,000 UNIT/ML VIAL 5000 UNIT SC (05:17)
[2018-11-24 07:01] LABS: Bedside Glucose 54 mg/dL (70-110)
[2018-11-24 07:20] LABS: Bedside Glucose 89 mg/dL (70-110)
--- NOTE | 2018-11-24 07:24 | NURSING ---
PT'S BLOOD GLUCOSE 54 THIS AM. ASYMPTOMATIC. 4 OZ OF ORANGE JUICE PROVIDED. PT ORDERED BREAKFAST. RECHECKED AFTER 15 MIN. BG 89.
--- NOTE | 2018-11-24 11:28 | PCM.PN.REN ---
Subjective: No new complaints - Physical Exam General: Alert, Oriented x3, Cooperative HEENT: Atraumatic, PERRLA, EOMI, Normocephalic Neck: Supple, No JVD, Negative Carotid Bruits Lungs: Clear to auscultation, Normal air movement Cardiovascular: Regular rate, No murmurs Abdomen: Bowel Sounds Present, Soft, Non Tender Extremities: No edema, Capillary Refill Less than 3 Seconds Skin: No rashes, No breakdown Musculoskeletal: No Tenderness to Palpation of Joints or Extremities Neurological: Cranial nerves II-XII grossly intact Psych/Mental Status: Normal Affect, Appropriate Vital Signs Temp Pulse Resp BP Pulse Ox 96.6 F L 99 18 155/76 H 96 11/24/18 10:40 11/24/18 10:40 11/24/18 10:40 11/24/18 10:40 11/24/18 10:40 Oxygen Flow Rate (L/min) 1 Oxygen Delivery Method Nasal Cannula Weight: 81.6 kg Body Mass Index (BMI) 29.8 Finger Stick Blood Glucose 283 Intake and Output for Last 24 Hours 11/22/18 11/23/18 11/24/18 23:59 23:59 23:59 Intake Total 480 / 480 540 / 1064 748 / 748 Output Total 5600 / 5600 0 / 0 Balance -5120 / -5120 540 / 1064 748 / 748 Microbiology Past 72 Hours 11/22/18 18:15 C. difficile DNA Amplification - Final Stool Toxigenic C. difficile DNA Laboratory Tests Past 24 Hrs 11/23/18 22:05 Glucose 546 H* POC Glucose 11/24/18 11/24/18 11/24/18 07:15 06:47 01:37 POC Glucose 89 54 L 346 H 11/23/18 11/23/18 11/23/18 21:46 16:31 11:44 POC Glucose 478 H* 267 H 248 H Medical Necessity - Tobacco Use Smoking Status: Current every day smoker Assessment/Plan All Active Problems (Last Reviewed 11/22/18 @ 15:53 by Daniel Lawson MD) Metabolic acidosis (Resolved) Abnormal LFTs (Resolved) Lactic acidosis (Resolved) Hyperphosphatemia (Resolved) Severe sepsis (Resolved) Metabolic encephalopathy (Acute) Hyperkalemia (Acute) Acute respiratory failure with hypoxia (Acute) Hyponatremia (Acute) CAP (community acquired pneumonia) (Resolved) Clostridium difficile enterocolitis (Resolved) DKA (diabetic ketoacidoses) (Resolved) Human metapneumovirus pneumonia (Resolved) Hypercalcemia (Resolved) Hypoglycemia (Resolved) Malnutrition (Resolved) Pulmonary edema (Resolved) Seizure (Resolved) Warfarin-induced coagulopathy (Resolved) 1- ESRD on MWF HD schedule Pt missed Tuesday 11/21 HD session. Pt presented with hyperkalemia had HD session 11/22. Seen on dialysis today. See orders/flow sheets. 2- Hyperkalemia: due to missing HD session hyperglycemia resolved with HD Okay to DC home today.
[2018-11-24 11:55] LABS: Bedside Glucose 230 mg/dL (70-110)
--- NOTE | 2018-11-24 12:02 | DCINST_ITS ---
You will use the following diet at home:: Calorie/Carbohydrate Controlled (specify 1200, 1400, etc) - 1800 KENYA Your food should be the consistency of: Regular Your liquids should be the consistency of: Regular/Thin Discharge Activity: Return to Normal Activity Weight Bearing Status: Full weight bearing Allergies/Adverse Reactions: Allergies Penicillins [PCN] Allergy (Verified 11/22/18 13:36) Hives Medications to take at Discharge Albuterol Inhaler [Ventolin Hfa] 2 puff INHALATION Q4H PRN PRN 10/28/16 Allopurinol [Zyloprim] 200 mg PO DAILY 10/28/16 Amlodipine [Norvasc] 10 mg PO DAILY 10/28/16 Ergocalciferol [Vitamin D] 50,000 unit PO MO 10/28/16 Fluticasone 0.05% [Flonase Nasal [place]] 1 spray NASAL DAILY 10/28/16 Gabapentin [Neurontin] 300 mg PO QHS 10/28/16 Latanoprost 0.005% [Xalatan Opthalmic] 1 drop EACH EYE QHS 10/28/16 Venlafaxine XR [Effexor Xr] 187.5 mg PO DAILY 10/28/16 Insulin Glargine [Lantus SoloStar Pen] 7 units SC QHS 05/17/17 Sevelamer Carbonate [Renvela] 800 mg PO TID 05/17/17 ALPRAZolam [Xanax] 0.5 mg PO TID PRN PRN 11/22/18 Ascorbic Acid [Vitamin C] 500 mg PO DAILY 11/22/18 Insulin Aspart [Novolog Flexpen] 0 units SUBCUT TID 11/22/18 Lisinopril [Prinivil] 10 mg PO DAILY 11/22/18 Ropinirole HCl [Requip] 0.5 mg PO QHS 11/22/18 Vit B Comp No.3/Folic/C/Biotin [Nephro-Reggie Rx Tablet] 1 ea PO DAILY 11/22/18 Vancomcyin 125mg/5mL PO Liquid 125 mg PO Q6 #56 po.syringe 11/24/18 The following prescriptions were given: Vancomcyin 125mg/5mL PO Liquid 125 mg PO Q6 #56 po.syringe Transmission Status: Pending to [facility] Primary Care Physician: Curtis,Elijah, MD [Primary Care Provider] - Please follow up with your Primary Care Physician in: IN 2 WEEKS Test Results: Test results from this visit will be discussed in further detail at your follow- up appointment, if applicable.
--- NOTE | 2018-11-24 13:22 | CASEMGMT ---
ATUL CAMPO Assessment. Intro role of CM to patient. Receiving hemodialysis at this time. Pt reticent to answer questions fully. States doesn't need anything for home. PCP: Dr. Elijah Curtis [facility]: [facility] Living Arrangements: pt did not wish to answer DME: walker, raised toilet seat. Pt states there is more, but I've got what I need Hemodialysis: [facility] MWF 6:10 am. Pt states i get a ride but would not state who takes her. DC PLAN: Home. ATUL CAMPO requested pt contact her if concerns re: dc arise. Keiko HOPEN RN ACM
--- NOTE | 2018-11-24 14:18 | CASEMGMT ---
Social Work Note SW received referral for advanced directives. SW met with pt and pt's sister Mulu present in room. Pt gave this worker permission to talk to her in front of her guest and for Mulu to fill out documents while pt tells Mulu what to write. Pt completed advanced directives documents. Original provided to pt, copy provided to Mulu and copy placed on pt's chart. Fe Matta SPOOLER OPERATOR [employer]AT[employer], FAMILY INTERVENTION SPECIALIST
--- NOTE | 2018-11-24 14:20 | DIALYSIS ---
Hemodialysis completed, 4 hours on a 2 K bath. Fluid removed was 5 liters. Patient tolerated well. BP stable throughout. Next HD will be at outpatient center [facility] See dialysis flow sheet for details.
[2018-11-24] MEDS: amLODIPine 10 MG Tablet PO (14:24)
[2018-11-24] MEDS: Folic Acid/Vitamin B Comp W-C 1 Capsule 1 CAP PO (14:25)
[2018-11-24] MEDS: Allopurinol 100 MG Tablet 200 MG PO (14:25)
[2018-11-24] MEDS: Ascorbic Acid 500 MG Tablet PO (14:25)
[2018-11-24] MEDS: SEVELAMER CARBONATE 800 MG TABLET PO (14:25)
[2018-11-24] MEDS: Venlafaxine XR 150 MG Capsule PO (14:25)
[2018-11-24] MEDS: Fluticasone 0.05% 1 SPRAY NASAL.SRY NASAL (14:25)
[2018-11-25 07:21] LABS: Bedside Glucose 37 mg/dL (70-110)
[2018-11-25 07:21] LABS: Bedside Glucose 39 mg/dL (70-110)
--- NOTE | 2018-11-25 14:34 | CASEMGMT ---
Case Management DC F/U Call: DC Date: 11/24/18 DC Dx: Acute C. difficile colitis DC Disposition: Home LACE/STRATA: 02/19 Attempted to call patient cell phone, No answer, VM box not set up yet. Tavia Rodriguez RNCM
--- NOTE | 2018-11-26 18:17 | PCM.DC.SUM ---
Discharge Date and Diagnosis Date of Admission: 11/22/18 Date of Discharge: 11/24/18 - Primary Discharge Diagnosis #1 hyperkalemia secondary to end-stage renal disease with noncompliance with dialysis #2 acute C. difficile colitis #3 diabetes mellitus type 1 #4 end-stage renal disease on hemodialysis secondary to type 1 diabetes #5 acute hypoxia secondary to fluid overload #6 anemia of chronic renal disease #7 essential hypertension - Secondary Discharge Diagnosis Chronic Problems (Last Reviewed 11/22/18 @ 15:53 by Daniel Lawson MD) End stage renal disease on dialysis (Chronic) Polyclonal gammopathy (Chronic) PAF (paroxysmal atrial fibrillation) (Chronic) Glaucoma (Chronic) Depression (Chronic) Hyperuricemia (Chronic) Hypertension (Chronic) DM type 1 (diabetes mellitus, type 1) (Chronic) Anemia (Chronic) Hospital Course and Treatment Operations: None Procedures: Dialysis Summary of Care Provided: The patient is a 48 year old F who was seen in the emergency room at [facility] with a chief complaint of malaise and fatigue. She missed 2 dialysis appointments, work-up in the emergency room included a chemistry profile which showed a sodium of 130, potassium of 6.9, BUN of 77, and a creatinine of 8.57. Chest x-ray showed hypoinflation but no acute disease, CBC showed hemoglobin of 10. Patient required low flow oxygen to maintain her pulse ox above 90. Patient was given calcium chloride, sodium bicarb, dextrose, insulin, and Kayexalate in the emergency room. Patient was admitted to [place] [address] for hyperkalemia, she was seen in consultation by nephrology and underwent dialysis. Patient had diarrhea during her admission and her stool was checked and it resulted positive for C. difficile and she was treated with oral vancomycin. On 11/24/2018, patient was seen and examined: On examination she appeared in good health and spirits. Vital signs as documented. Skin warm and dry and without overt rashes. Neck without JVD. Lungs clear. Heart exam notable for regular rhythm, normal sounds and absence of murmurs, rubs or gallops. Abdomen unremarkable and without evidence of organomegaly, masses, or abdominal aortic enlargement. Extremities nonedematous. Neuro: Cranial nerves II through XII are grossly intact, no focal motor deficits were noted, sensation to light touch and pinprick is intact. Psych: Patient is alert and oriented x3, she does not appear anxious or depressed On 11/24/2018, patient was seen and examined felt to be in stable condition for discharge home - Physical Exam Vital Signs Temp Pulse Resp BP Pulse Ox 98.2 F 64 18 152/76 H 95 11/24/18 14:21 11/24/18 14:21 11/24/18 14:21 11/24/18 14:21 11/24/18 14:21 Oxygen Flow Rate (L/min) 2 Oxygen Delivery Method Room Air Weight: 81.6 kg Body Mass Index (BMI) 29.8 Finger Stick Blood Glucose 283 Intake and Output for Last 24 Hours 11/24/18 11/25/18 11/26/18 23:59 23:59 23:59 Intake Total 748 / 748 Output Total 5000 / 5000 Balance -4252 / -4252 Discharge Activity: Return to Normal Activity Weight Bearing Status: Full weight bearing Home Medications: Medications to take at Discharge Albuterol Inhaler [Ventolin Hfa] 2 puff INHALATION Q4H PRN PRN 10/28/16 Allopurinol [Zyloprim] 200 mg PO DAILY 10/28/16 Amlodipine [Norvasc] 10 mg PO DAILY 10/28/16 Ergocalciferol [Vitamin D] 50,000 unit PO MO 10/28/16 Fluticasone 0.05% [Flonase Nasal [place]] 1 spray NASAL DAILY 10/28/16 Gabapentin [Neurontin] 300 mg PO QHS 10/28/16 Latanoprost 0.005% [Xalatan Opthalmic] 1 drop EACH EYE QHS 10/28/16 Venlafaxine XR [Effexor Xr] 187.5 mg PO DAILY 10/28/16 Insulin Glargine [Lantus SoloStar Pen] 7 units SC QHS 05/17/17 Sevelamer Carbonate [Renvela] 800 mg PO TID 05/17/17 ALPRAZolam [Xanax] 0.5 mg PO TID PRN PRN 11/22/18 Ascorbic Acid [Vitamin C] 500 mg PO DAILY 11/22/18 Insulin Aspart [Novolog Flexpen] 0 units SUBCUT TID 11/22/18 Lisinopril [Prinivil] 10 mg PO DAILY 11/22/18 Ropinirole HCl [Requip] 0.5 mg PO QHS 11/22/18 Vit B Comp No.3/Folic/C/Biotin [Nephro-Reggie Rx Tablet] 1 ea PO DAILY 11/22/18 Vancomcyin 125mg/5mL PO Liquid 125 mg PO Q6 #56 po.syringe 11/24/18 Following Prescrptions Were Given to Patient: Vancomcyin 125mg/5mL PO Liquid 125 mg PO Q6 #56 po.syringe Transmission Status: Received by [facility] Primary Care Physician: Elijah Curtis MD [Primary Care Provider] - Please follow up with your Primary Care Physician in: IN 2 WEEKS Please Follow Up With: Elijah Curtis MD When: 2 weeks Disposition: Home Minutes spent on discharge:: 31 Patient Condition:: Stable Medical Necessity - Tobacco Use Smoking Status: Current every day smoker Meaningful Use Info Meaningful Use Diagnoses (Choose all that apply): None applicable Code Visit Inpatient E&M: 66265 [facility]
== END 2018-11-24 15:21 | disposition home or self-care (01) | DRG 640 ==
LOC: ED 14:58 → ICU 15:26 → MS3 11-23 08:07
PROVIDERS: Hospitalist; Internal Medicine Critical Care Medicine; Admitting Provider Internal Medicine; Emergency Provider Emergency Medicine; Family Provider Family Medicine; PCP Family Medicine; Visit Provider Internal Medicine
DX: E87.5 Hyperkalemia (principal); N18.6 End stage renal disease; A04.72 Enterocolitis due to Clostridium difficile, not specified as recurrent; I12.0 Hypertensive chronic kidney disease with stage 5 chronic kidney disease or end stage renal disease; E87.70 Fluid overload, unspecified; E10.22 Type 1 diabetes mellitus with diabetic chronic kidney disease; D63.1 Anemia in chronic kidney disease; E03.9 Hypothyroidism, unspecified; F41.8 Other specified anxiety disorders; Z99.2 Dependence on renal dialysis; Z79.4 Long term (current) use of insulin; E66.9 Obesity, unspecified; Z68.31 Body mass index [BMI] 31.0-31.9, adult; Z91.15 Patient's noncompliance with renal dialysis; G62.9 Polyneuropathy, unspecified; R09.02 Hypoxemia; D89.0 Polyclonal hypergammaglobulinemia; H40.9 Unspecified glaucoma
CPT/HCPCS: 71045; 80048; 82947; 82962; 83735; 84484; 85025; 87493; 90937; 93005; 97802; 99285; A4216; G0257

== ENCOUNTER 2019-01-05 10:10 | Emergency (ER) | payer MEDICARE, OTHER, MEDICAID, SELFPAY ==
[2018-11-22 16:02] VITALS: BMI 29.8
[2019-01-05 10:15] VITALS: BP 156/78; PULSE 87; RESP 17; TEMP 37.2; O2SAT 94; BMI 33.6
--- NOTE | 2019-01-05 10:16 | ED.DCSUM_ITS ---
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 Narrative: Patient is a 48-year-old type I diabetic who states she took her normal dose of insulin this morning and ate her normal amount of food prior to dialysis. During dialysis she had decreased level conscious. Blood sugar was 41. She was given oral glucose and glucagon. Upon arrival she is arousable. She does admit to falling. She denies hitting her head. She denies headache. She states she does not feel well. Prior similar symptoms: Yes Recent Illness/Hospitalization: Yes - Past Medical History (1) Metabolic encephalopathy Status: Acute (2) DM type 1 (diabetes mellitus, type 1) Status: Chronic (3) Depression Status: Chronic (4) End stage renal disease on dialysis Status: Chronic (5) Hypertension Status: Chronic (6) PAF (paroxysmal atrial fibrillation) Status: Chronic (7) Polyclonal gammopathy Status: Chronic (8) Hyperphosphatemia Status: Resolved Past Medical History - Allergies and Home Meds Allergies/Adverse Reactions: Allergies Penicillins [PCN] Allergy (Verified 01/05/19 10:19) Hives Primary Care Physician: Elijah Curtis MD [Primary Care Provider] - Prior records reviewed: Yes Surgical History: hysterectomy, - - PD catheter placement, tunneled dialysis catheter placement, AVF 06/08/17. Lives: Alone Smoking Status: Current every day smoker Alcohol: None Drugs: None - Family History Paternal Family History: Reports: Heart Disease Maternal Family History: Reports: No pertinent history Review of Systems ROS: Unable to Obtain - Patient requires repeated stimulus. Blood sugar is 62. General: Reports: Malaise Eyes: Denies: Visual changes - bilaterally, Blurred Vision - bilaterally, Diplopia Cardiovascular: Denies: Chest pain Respiratory: Denies: Dyspnea Gastrointestinal: Reports: Nausea Neurological: Reports: Weakness. Denies: Headache, Parasthesia, Numbness Allergy: Denies: Swelling of the mouth, Swelling of the tongue Physical Exam Inital Vital Signs reviewed: Yes General: Well nourished, Well developed, Obese, No Acute Distress, - - Patient is somnolent Head: Normocephalic, Atraumatic. Negative for: Trauma, Tenderness Eyes: Perrl, EOMI, Pale conjunctiva. Negative for: Scleral icterus ENT: Negative for: Moist mucous membranes, No rhinorrhea, TM's clear, Dry mucous membranes, Nasal congestion, Sinus tenderness, - - No clinical evidence of head trauma or basilar skull fracture. Neck: Supple, Nontender, No lymphadenopathy, No JVD Cardiovascular: Regular rate, Regular rhythm, No murmurs, Normal S1, Normal S2 Respiratory: No distress, CTA bilaterally, Chest nontender Abdomen: Soft, Nontender, Nondistended, Normal bowel sounds Skin: Normal color, No rash, No Trauma. Negative for: Cyanosis, Diaphoresis, Jaundice Neurological: Oriented x3, Cranial nerves II-XII grossly intact, Normal Strength, Normal Sensation, Normal DTR. Negative for: Alert Psychological: Normal affect Diagnostic/Tx/Re-eval - Medical Decision Making Suspect patient's change in mental status secondary to hypoglycemia. If her blood sugar improves after D50 and there is no improvement in her mental status will obtain CT of the head with history of fall this past weekend. Patient was reassessed at 1040. She is alert oriented. Since she responded appropriately to D50 will discharge after she eats. Furthermore imaging of her head is not indicated since her level of conscious improved with treatment for hypoglycemia. ED Disposition - Plan for ED Patient: Disposition: Home or Assisted Living Diagnosis: Hypoglycemia due to type 1 diabetes mellitus, Mental status change resolved Instructions: Diabetic Insulin Reaction Referrals: Elijah Curtis MD [Primary Care Provider] - As Needed
[2019-01-05] MEDS: Dextrose 50%-Water 25 GM/50 ML DISP.SYRIN IV (10:27)
[2019-01-05 10:34] VITALS: BP 118/79; PULSE 63; RESP 18; O2SAT 100
[2019-01-05 10:55] VITALS: BP 121/76; PULSE 63; RESP 18; O2SAT 100
[2019-01-05 11:19] VITALS: BP 132/86; PULSE 87; RESP 16; O2SAT 97
[2019-01-05 11:45] LABS: Bedside Glucose 181 mg/dL (70-110)
[2019-01-05 11:45] LABS: Bedside Glucose 62 mg/dL (70-110)
[2019-01-05 12:18] VITALS: BP 140/86; PULSE 76; RESP 18; O2SAT 96
--- NOTE | 2019-01-05 12:20 | NURSING ---
before d/c took the pt's glucose again-180. pt called sister for a ride. pt was a&ox4. able to answer my questions. able to walk to the waiting room. pt was able to eat snacks and drink water. pt able to move all extremities. pt waiting in the waiting room for a ride and let anastasia doss know to keep an eye on her.
[2019-01-05 12:31] LABS: Bedside Glucose 180 mg/dL (70-110)
== END 2019-01-05 12:22 | disposition home or self-care (01) ==
PROVIDERS: Emergency Provider Emergency Medicine; Family Provider Family Medicine; PCP Family Medicine
DX: E10.649 Type 1 diabetes mellitus with hypoglycemia without coma (principal); F32.9 Major depressive disorder, single episode, unspecified; I12.0 Hypertensive chronic kidney disease with stage 5 chronic kidney disease or end stage renal disease; E10.22 Type 1 diabetes mellitus with diabetic chronic kidney disease; N18.6 End stage renal disease; I48.0 Paroxysmal atrial fibrillation; D89.0 Polyclonal hypergammaglobulinemia; E66.9 Obesity, unspecified; F17.200 Nicotine dependence, unspecified, uncomplicated; Z68.33 Body mass index [BMI] 33.0-33.9, adult; Z99.2 Dependence on renal dialysis; Z79.4 Long term (current) use of insulin; Z79.899 Other long term (current) drug therapy
CPT/HCPCS: 82962; 96374; 99285; A4216; J1610

== ENCOUNTER 2019-01-07 07:28 | Observation (INO) | payer MEDICARE, OTHER, MEDICAID, SELFPAY ==
[2019-01-07] VITALS (11 sets, daily range): BP systolic 106–144; BP diastolic 63–86; PULSE 51–99; RESP 14–19; TEMP 35.2–36.8; O2SAT 93–99; BMI 32.4; BMI 30.3
--- NOTE | 2019-01-07 07:42 | ED.VIS.GEN ---
History of Present Illness Chief Complaint: Hypoglycemia Narrative: Patient presenting for evaluation due to altered mental status. EMS was contacted for this patient due to the fact that she missed a dialysis appointment. A family member checked on the patient, and she was noted to have altered mental status. Upon arrival of EMS they did take a blood glucose on the patient and she was noted to have a GGT in the 30s. Patient was given a dose of glucagon as well as oral glucose and was brought immediately to the emergency department. She had minimal improvement in that time. Additional history is somewhat limited due to the fact that the patient is currently still altered. Past Medical History - Allergies and Home Meds Allergies/Adverse Reactions: Allergies Penicillins [PCN] Allergy (Verified 01/05/19 10:19) Fernandez Primary Care Physician: Elijah Curtis MD [Primary Care Provider] - Past Medical History: - - Type 1 diabetes and end-stage renal disease with dialysis Surgical History: hysterectomy, - - PD catheter placement, tunneled dialysis catheter placement, AVF 06/08/17. Smoking Status: Never smoker - Family History Paternal Family History: Reports: Heart Disease Maternal Family History: Reports: No pertinent history Review of Systems ROS: Unable to Obtain - due to AMS Physical Exam Vital Signs/Narrative: Vital Signs Temp Pulse Resp BP Pulse Ox 01/07/19 07:29 95.4 F L 51 L 15 134/63 H 95 Inital Vital Signs reviewed: Yes General: Well nourished, Well developed Head: Normocephalic, Atraumatic Eyes: Perrl, EOMI ENT: Moist mucous membranes Neck: Supple Cardiovascular: Regular rate, Regular rhythm, Murmur - 2/6 systolic Respiratory: No distress, CTA bilaterally Abdomen: Soft, Nontender Extremities: - - multiple superficial abrasions of the legs noted. trace edema. left arm palpable thrill Skin: Normal color, - - cold Neurological: - - Somewhat sedate and confused. Oriented times 1. No apparent lateralizing defecits. Diagnostic/Tx/Re-eval - Medical Decision Making Patient presented for evaluation secondary to altered mental status. She was found to have a blood sugar in the 30s prior to arrival and was given glucagon as well as oral glucose. She was still hypoglycemic upon arrival to the emergency department in the 50s and was given D50, and then was given a meal. She did wake up somewhat while she was in the emergency department, but still is reasonably sedate. Patient had a fall on Saturday, so there was some at least concern for the possibility of intracranial pathology CT brain was obtained which was found to be negative. Patient CBC does not demonstrate evidence of leukocytosis that would indicate infection. Chemistry shows stigmata of her renal disease with elevated BUN and creatinine but no significant electrolyte dyscrasias and no evidence of acidosis or elevated anion gap. I discussed with the patient's daughter who is her power of defense attorney who states that the patient really has been acting abnormally over the course of at least the last week and she is suspicious that she is not taking her medications appropriately. I believe that the patient likely would benefit from admission due to the fact that she has had recurrent hypoglycemic episodes and is still somewhat encephalopathic and we do not have a specific reason for it. Patient was discussed with the hospitalist, the patient will be admitted. ED Disposition - Plan for ED Patient: Disposition: Acute [facility] Diagnosis: Hypoglycemia, Encephalopathy acute
[2019-01-07] MEDS: Dextrose 50%-Water 25 GM/50 ML DISP.SYRIN IV (07:46)
[2019-01-07 07:51] LABS: Absolute Lymphocyte Count 0.84 X10^3/uL (0.83-4.51); Absolute Neutrophil Count 6.8 X10^3/uL (2.0-7.7); Basophil# 0.04 X10^3/uL; Basophil% 0.5 % (0-1); Eosinophil# 0.22 X10^3/uL; Eosinophils% 2.5 % (0-5); Hematocrit 37.9 % (37-47); Hemoglobin 12.6 g/dL (12.0-15.0); Lymphocyte # 0.84 X10^3/ul (4.0); Lymphocyte % 9.7 % (19-41); Mean Corp Hgb Conc 33.2 g/dL (32-36); Mean Corpuscular Hgb 32.4 pg (27.0-32.0); Mean Corpuscular Volume 97.4 fL (81-99); Mean Platelet Vol. 11.7 fl (6.2-12.0); Monocyte# 0.69 X10^3/uL; Monocyte% 7.9 % (0-10); NRBC Flagged by Analyzer 0 % (0-5); Neutrophil # 6.84 X10^3/uL (2.7-7.7); Neutrophil % 78.8 % (47-70); Platelet Count 160 K/mm3 (150-450); RBC Distribution Width CV 13.2 % (11.6-14.6); RBC Distribution Width SD 47.7 fl (35.1-43.9); Red Blood Count 3.89 M/mm3 (4.2-5.4); White Blood Count 8.7 K/mm3 (4.4-11.0)
--- NOTE | 2019-01-07 07:59 | CT_ITS ---
STUDY: CT BRAIN WITHOUT CONTRAST REASON FOR EXAM: Female, 48 years old. Confusion RADIATION DOSAGE (If Supplied By Facility): CTDIvol = ( 44.99 ) mGy, DLP = ( 779.24 ) mGycm TECHNIQUE: Transaxial CT imaging of the brain was performed without administration of intravenous contrast material. Individualized dose optimization techniques were used for this CT. COMPARISON: 10/16/2017 FINDINGS: Normal soft tissue structures. Normal calvarium. Normal size ventricles and extra-axial spaces for the patient's age. Normal white matter tracts of the cerebral hemispheres. Normal basal ganglia and thalami. Normal brainstem. Normal cerebellum. There is no intracranial hemorrhage. There are no findings of an acute ischemic infarction. 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 CT/Brain/Head without Contrast IMPRESSION: No acute intracranial process. 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 Electronically Signed: Dk Parham MD at 9:23 EDT Tel [phone], Service support ,
[2019-01-07 08:03] LABS: Anion Gap 11 (5-15); BUN 53 mg/dL (7-18); BUN/Creat Ratio 7.5 RATIO (10-20); Calcium,Total 8.9 mg/dL (8.5-10.1); Chloride 96 mmol/L (98-107); Creatinine, Serum 7.03 mg/dL (0.55-1.02); EST Glomerular Filtration Rate 7 mL/min (>60); Est Glom Filt Rate - Afr Amer 8 mL/min (>60); Estimated Creatinine Clearance 8.45 ml/min; Glucose 64 mg/dL (74-106); Potassium 4.9 mmol/L (3.5-5.1); Sodium Level 132 mmol/L (136-145)
--- NOTE | 2019-01-07 08:45 | ED.RN ---
MEAL PROVIDED FOR PATIENT.
[2019-01-07 09:55] LABS: Bedside Glucose 250 mg/dL (70-110)
--- NOTE | 2019-01-07 09:57 | NURSING ---
MED SURG KATIE ENCEPHALOPATHY, HYPOGLYCEMIA, ESRD
--- NOTE | 2019-01-07 10:19 | ED.RN ---
UNABLE TO OBTAIN URINE VIA STRAIGHT CATH
--- NOTE | 2019-01-07 10:33 | CM.ED ---
Social Work Consult: Resources Informant: Dr. Guillaume Chief Complaint: Limited resources, patient needing assistance within the home and patient Mulu corrigan lives 30mins from patient and works full-time. Living Situation: Patient lives alone as of 2017 when patient spouse left patient. Patient is now . DME: Walker, that patient sometimes used. ADLs: Patient reporting to be able to care for self most days. Mulu stating that patient falls some at home. Resources: [place] transportation. Supports: Patient Mulu corrigan is main support and Health care POA. Mental Health: Patient with a diagnosis of anxiety. Patient denies any current counseling services. SI or HI: Patient denies. Assessment: Patient lives in a 2-story home and unable to have a 1st floor set up. Mulu voicing concern of patient being able to live alone as patient has been falling more and not been taking medication. Patient in and out of sleep during assessment and stating that it is okay for this social welfare research worker to speak with Mulu. Mulu stating to be interested in helping patient in the home but to also need to work and have an income. Mulu stating to have contact [facility] in the past but was not aware of the [place] Waiver program. This social welfare research worker educating Mulu on the [place] Waiver Program. Patient agreeable to applying for services. Patient/Mulu updated that the Waiver program is through [facility]. This social welfare research worker broaching topic of counseling services, patient stating to not be active. Mulu believes that patient would benefit from counseling services. Patient to be admitted to acute unit. This social welfare research worker communicating that social work will follow up with patient on the unit. Handoff provided to [facility] LISW. Jenelle to follow up with patient on Waiver application as well as possible counseling referral. ALINE Peterson
--- NOTE | 2019-01-07 11:56 | HP.PCM_ITS ---
Problem List (1) Encephalopathy acute Status: Acute History of Present Illness Date of Admission: 01/07/19 Chief Complaint: Confusion The patient is a 48 year old F who was found confused at home today by family. Today is patient's dialysis today and patient did not respond and her sister came in and found the patient confused. EMS contacted blood sugar was noted to be 31. She was given a dose of glucagon as well as oral glucose which did improve her blood sugars. Patient remained to be confused despite that and the hospital service was contacted for admission given the prolonged confusion despite treatment of the hypoglycemia. By the time I saw the patient, the patient was awake and alert x3. States that she is taking her insulin and is currently on Lantus 70 units at night and then 4 units of prandial insulin with meals. Denies taking more insulin then she is told to. Despite her diabetes patient is able to see the numbers and is able to [place] into the insulin pens. Denies having taking any NovoLog this morning. Patient's sister took me aside and states that the patient is not taking her Lantus at home and checks her blood sugar very infrequently at home. The patient sister is also concerned that she is telling her, sister, different things and when she is telling physicians. Patient was also seen in the emergency room on the with confusion and had a blood sugar of 41 at that time. [] Past Medical History Past Medical History (Chronic Problems): Chronic Problems (Last Reviewed 11/22/18 @ 15:53 by Daniel Lawson MD) End stage renal disease on dialysis (Chronic) Polyclonal gammopathy (Chronic) PAF (paroxysmal atrial fibrillation) (Chronic) Glaucoma (Chronic) Depression (Chronic) Hyperuricemia (Chronic) Hypertension (Chronic) DM type 1 (diabetes mellitus, type 1) (Chronic) Anemia (Chronic) Medical History: Medical History (Last Updated 01/07/19 @ 12:03 by Misha Scott DO) End stage renal disease on dialysis (Chronic) N18.6, Z99.2 Polyclonal gammopathy (Chronic) D89.0 PAF (paroxysmal atrial fibrillation) (Chronic) I48.0 Glaucoma (Chronic) H40.9 Depression (Chronic) F32.9 Hyperuricemia (Chronic) E79.0 Hypertension (Chronic) I10 DM type 1 (diabetes mellitus, type 1) (Chronic) E10.9 Hyponatremia (Acute) E87.1 Anemia (Chronic) D64.9 Metabolic encephalopathy G93.41 DKA (diabetic ketoacidoses) E13.10 Hypoglycemia (Resolved) E16.2 Malnutrition (Resolved) E46 Pulmonary edema (Resolved) J81.1 Seizure (Resolved) R56.9 ddue to hypoglycemia Warfarin-induced coagulopathy (Resolved) D68.32, T45.515A Allergies Penicillins [PCN] Allergy (Verified 01/05/19 10:19) Hives Home Medications: Ambulatory Orders Medication Instructions Recorded Albuterol Inhaler [Ventolin Hfa] 2 puff INHALATION Q4H PRN PRN 10/28/16 Allopurinol [Zyloprim] 200 mg PO DAILY 10/28/16 Ergocalciferol [Vitamin D] 50,000 unit PO MO 10/28/16 Fluticasone 0.05% [Flonase Nasal 1 spray NASAL DAILY PRN 10/28/16 [place]] Gabapentin [Neurontin] 300 mg PO QHS 10/28/16 Latanoprost 0.005% [Xalatan 1 drop EACH EYE QHS 10/28/16 Opthalmic] Venlafaxine XR [Effexor Xr] 187.5 mg PO DAILY 10/28/16 Insulin Glargine [Lantus SoloStar 7 units SC QHS 05/17/17 Pen] Sevelamer Carbonate [Renvela] 800 mg PO TID 05/17/17 ALPRAZolam [Xanax] 0.5 mg PO TID PRN PRN 11/22/18 Ascorbic Acid [Vitamin C] 500 mg PO DAILY 11/22/18 Insulin Aspart [Novolog Flexpen] 0 units SUBCUT TID 11/22/18 Ropinirole HCl [Requip] 0.5 mg PO QHS 11/22/18 Vit B Comp No.3/Folic/C/Biotin 1 ea PO DAILY 11/22/18 [Nephro-Reggie Rx Tablet] Surgical History: hysterectomy, - - PD catheter placement, tunneled dialysis catheter placement, AVF 06/08/17. 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 Denies: Abdominal Pain, Nausea, Vomiting Genitourinary: Denies: Dysuria Musculoskeletal: Denies: Joint Pain, Joint Tenderness Skin: Denies: Dryness, Jaundice Neurological: Reports: Confusion. Denies: Focal weakness, Numbness, Tingling Psychiatric: Denies: Anxiety, Depression Endocrine: Denies: Change in Body Habitus, Heat/ Cold Intolerance Hematologic/ Lymphatic: Denies: Easy Bruising, Easy Bleeding, Hx of blood clot Comment: A 10 point review of systems were negative except as mentioned in the history of present illness and the other review of systems. VTE Information - Inpt Only VTE Present on Admission: No VTE Mechan Device Prophylaxis: None VTE Pharm Prophylaxis ordered?: No Reason prophylaxis not ordered:: Procedure Not Indicated Patient Problems: Active and Suspected Problems (Last Reviewed 11/22/18 @ 15:53 by Daniel Lawson MD) Hypoglycemia (Acute) Encephalopathy acute (Acute) - Physical Exam General: Alert, Oriented x3, Cooperative, No apparent distress, - - Appears older than stated age. Afebrile. HEENT: Atraumatic, PERRLA, EOMI, Normocephalic Oral: Moist Mucosa, No Gingival or Mucosal Lesions/ Ulcerations Neck: No Nodes, Thyroid Normal Size and Texture Lungs: Clear to auscultation, Normal air movement, No rhonchi, No wheeze, No rales, Diminished Cardiovascular: Regular rate, Regular Rhythm, Normal S1, Normal S2, No murmurs Abdomen: Bowel Sounds Present, Soft, Non Tender, Non-Distended, No Hepato- splenomegaly Extremities: No edema, No Calf Tenderness Skin: No rashes, - - Abrasion on the philtrum of her lip Musculoskeletal: No Tenderness to Palpation of Joints or Extremities, No Muscle Wasting Neurological: Cranial nerves II-XII grossly intact, Neuro grossly intact, Coordination normal Psych/Mental Status: Normal Affect, Appropriate Vital Signs Temp Pulse Resp BP Pulse Ox 36.6 C 52 L 14 123/66 H 93 01/07/19 11:19 01/07/19 11:31 01/07/19 11:19 01/07/19 11:19 01/07/19 11:19 Oxygen Delivery Method Room Air Weight: 82.7 kg Body Mass Index (BMI) 30.3 Finger Stick Blood Glucose 250 Intake and Output for Last 24 Hours 01/05/19 01/06/19 01/07/19 23:59 23:59 23:59 Intake Total 120 / 120 Balance 120 / 120 Laboratory Tests Past 24 Hrs 01/07/19 01/07/19 07:35 07:35 WBC 8.7 RBC 3.89 L Hgb 12.6 Hct 37.9 MCV 97.4 MCH 32.4 H MCHC 33.2 RDW Std Deviation 47.7 H RDW Coeff of Tegan 13.2 Plt Count 160 MPV 11.7 Immature Gran % (Auto) 0.600 Neut % (Auto) 78.8 H Lymph % (Auto) 9.7 L [place] % (Auto) 7.9 Eos % (Auto) 2.5 Baso % (Auto) 0.5 Absolute Neuts (auto) 6.8 Absolute Lymphs (auto) 0.84 Nucleated RBC % 0 Sodium 132 L Potassium 4.9 Chloride 96 L Carbon Dioxide 25.0 Anion Gap 11 BUN 53 H Creatinine 7.03 H Estim Creat Clear Calc 8.45 Est GFR (MDRD) Af Amer 8 L Est GFR (MDRD) Non-Af 7 L BUN/Creatinine Ratio 7.5 L Glucose 64 L Calcium 8.9 POC Glucose 01/07/19 09:47 POC Glucose 250 H Clinical Impression(s) from Imaging Studies Brain CT 01/07/19 07:59 IMPRESSION: No acute intracranial process. 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 Electronically Signed: Dk Parham MD at 9:23 EDT Tel [phone], Service support , Assessment/Plan All Active Problems (Last Reviewed 11/22/18 @ 15:53 by Daniel Lawson MD) Hypoglycemia (Acute) Encephalopathy acute (Acute) Metabolic acidosis (Resolved) Abnormal LFTs (Resolved) Lactic acidosis (Resolved) Hyperphosphatemia (Resolved) Severe sepsis (Resolved) Metabolic encephalopathy (Acute) Hyperkalemia (Acute) Acute respiratory failure with hypoxia (Acute) Hyponatremia (Acute) CAP (community acquired pneumonia) (Resolved) Clostridium difficile enterocolitis (Resolved) DKA (diabetic ketoacidoses) (Resolved) Human metapneumovirus pneumonia (Resolved) Hypercalcemia (Resolved) Hypoglycemia (Resolved) Malnutrition (Resolved) Pulmonary edema (Resolved) Seizure (Resolved) Warfarin-induced coagulopathy (Resolved) 1. Metabolic encephalopathy * Secondary to hypoglycemia * Delay in complete recovery after proper treatment of hypoglycemia but back to baseline at this time. 2. Hypoglycemia * Iatrogenic in a type I diabetic * Patient denies taking more insulin that she is instructed to do so and states that she is able to see the numbers properly on her pen * Told the patient that we ought to cut back her prandial basal insulin to 4 units rather than 7 and to continue her prandial insulin at the 4 units with meals for now * Recommend patient follow-up with her rubber moulding machine operator in [place] 3. End-stage renal disease * On hemodialysis every Saturday * Discussed with Dr. Tomas about getting dialysis today Patient's sister pulled me outside to discuss concerned that she has. Expressive that the patient will tell her different things which ~positions she is consider the patient is not taking her insulin at home and is concerned that her not doing so seem to hypoglycemia. I started her that the patient is not taking her should actually lead to hyperglycemia and diabetic ketoacidosis and type I diabetic. She has concerns about her competency. I explained to the patient's sister that I have to take the patient's word in regards to what she is doing less we have objective evidence to indicate otherwise. I told her that she is looking to team the patient incompetent and would require different avenues but I do not have anything at this time to to remotely suggest that the patient is incompetent. I did tell her that the patient is certainly permitted to make bad decisions as long as she is not a direct threat to herself or others. Code Visit OBSV E&M: [id number] Initial observation care L3
[2019-01-07 12:11] LABS: Bedside Glucose 289 mg/dL (70-110)
[2019-01-07 12:45] LABS: Hemoglobin A1c 10.1 % (4.2-6.3)
--- NOTE | 2019-01-07 13:33 | CASEMGMT ---
Addendum entered by Matt Pedro 01/07/19 13:48: Pt states she is in the process of moving d/t concerns/issues with the stairs. Addendum entered by Matt Pedro 01/07/19 13:40: Pt gets Dialysis @ [facility]. Chair time is [id number]. Called placed to Alec @ [facility] and referral made. Alec made aware of sister's concerns of medication compliance. Order placed. Original Note: RN CM UTILITY SPRAY OPERATOR CM to room to meet with patient for initial transition planning/care coordination assessment. RN JAHAIRA introduced self and role at [facility]. Pt voices understanding and consents to assessment at this time. Pt resting in bed in no distress at this time. Pt is A/O at this time and answers all questions appropriately. Care providers, pharmacy, and demographics verified/updated at this time. PCP: Dr Elijah Curtis Specialists: Dr Canonn--shield installer, Dr Carlos--Toll Gate Tender in [place]. Preferred Pharmacy: [facility] Retail Insurance: [employer], [employer], [place] [employer] Prescription Benefit: yes Living Will/HPOA: Has both LW and HCPOA, who is her sister, Mulu LNOK: sister, Mulu/AMY, Mother and brother who live in [place] Living Arrangements: Lives alone in 2-story home. has 20 steps to go up to 2nd floor where the bedroom and bathroom is. has been sleeping on the couch recently b/c of having difficulty with the stairs. Has a BSC available that she uses on the ground floor when she is not feeling well. States she is independent with ADL's and home mgmt tasks. Transportation: Gets transportation through [employer]. also helps provide transportation when needed. DME: has the following DME: BSC, grab bar, hand-held shower, walker, and glucometer. States the glucometer works properly and she has all the needed supplies for it. Pt states no need for further DME at this time. HHC/SNF: Has been to [facility] in the past and then had HHC after leaving [facility] but does not remember the name of the agency. Pt declines need for SNF or HHC at discharge. Discussed CCN with pt and pt given [facility] Card. Pt states is agreeable to referral to [facility] and voices appreciation of information. Pt wishes to return home and states has no concerns with going home at time of discharge. Pt states does not smoke or drink ETOH. CM to follow for any discharge planning/needs. Pt voices no further concerns/needs at this time. Advised pt to ask for CM if any further questions/concerns/needs arise. Voices understanding. PLAN: Home w/discharge plans in place. CCN Referral made. Domi RODRIGUEZ RN CM
--- NOTE | 2019-01-07 14:05 | CASEMGMT ---
LW/POA in Summary tab in echart, Mulu Hassan is pt's POA. SHARLA Aguilar
[2019-01-07] MEDS: SEVELAMER CARBONATE 800 MG TABLET PO (16:54)
[2019-01-07] MEDS: Allopurinol 100 MG Tablet 200 MG PO (16:55)
[2019-01-07] MEDS: Folic Acid/Vitamin B Comp W-C 1 Capsule 1 CAP PO (16:55)
[2019-01-07] MEDS: Insulin Lispro 100 UNIT/ML INSULN.PEN SC ×2 (16:58→16:59)
[2019-01-07 17:06] LABS: Bedside Glucose 373 mg/dL (70-110)
--- NOTE | 2019-01-07 21:43 | DIALYSIS ---
Hemodialysis x 4 hours complete. 4 liters fluid removal. Patient tolerated treatment well, stable.
[2019-01-07 23:11] LABS: Bedside Glucose 39 mg/dL (70-110)
[2019-01-07 23:11] LABS: Bedside Glucose 45 mg/dL (70-110)
[2019-01-07] MEDS: Latanoprost 0.005% 1 Bottle 1 DRP EACH EYE (23:18)
[2019-01-07] MEDS: Pramipexole Di-HCl 0.25 MG Tablet PO (23:18)
[2019-01-07] MEDS: Gabapentin 300 MG Capsule PO (23:18)
[2019-01-08] LABS: Bedside Glucose 116 mg/dL (70-110)
[2019-01-08 04:29] VITALS: BP 143/72; PULSE 65; RESP 16; TEMP 36.8; O2SAT 94
[2019-01-08 06:36] LABS: Bedside Glucose 203 mg/dL (70-110)
[2019-01-08] MEDS: 0.9% NaCl Peripheral Flush Adult/Peds IV (07:33)
[2019-01-08 07:46] LABS: Bedside Glucose 255 mg/dL (70-110)
[2019-01-08 08:05] LABS: Bedside Glucose 50 mg/dL (70-110)
[2019-01-08] MEDS: Insulin Lispro 100 UNIT/ML INSULN.PEN SC ×2 (09:06→09:07)
[2019-01-08] MEDS: Ascorbic Acid 500 MG Tablet PO (09:11)
[2019-01-08] MEDS: SEVELAMER CARBONATE 800 MG TABLET PO (09:11)
[2019-01-08] MEDS: Allopurinol 100 MG Tablet 200 MG PO (09:12)
--- NOTE | 2019-01-08 09:31 | PCM.DC ---
- Discharge Diagnoses Current Active Problems: Current Active and Chronic Problems (Last Updated 01/07/19 @ 12:03 by Misha Scott DO) Hypoglycemia (Acute) Encephalopathy acute (Acute) You will use the following diet at home:: Calorie/Carbohydrate Controlled (specify 1200, 1400, etc) - 1800 Your food should be the consistency of: Regular Your liquids should be the consistency of: Regular/Thin Discharge Activity: Return to Normal Activity Allergies/Adverse Reactions: Allergies Penicillins [PCN] Allergy (Verified 01/05/19 10:19) Hives Medications to take at Discharge Albuterol Inhaler [Ventolin Hfa] 2 puff INHALATION Q4H PRN PRN 10/28/16 Allopurinol [Zyloprim] 200 mg PO DAILY 10/28/16 Ergocalciferol [Vitamin D] 50,000 unit PO MO 10/28/16 Fluticasone 0.05% [Flonase Nasal [place]] 1 spray NASAL DAILY PRN 10/28/16 Gabapentin [Neurontin] 300 mg PO QHS 10/28/16 Latanoprost 0.005% [Xalatan Opthalmic] 1 drop EACH EYE QHS 10/28/16 Venlafaxine XR [Effexor Xr] 187.5 mg PO DAILY 10/28/16 Sevelamer Carbonate [Renvela] 800 mg PO TID 05/17/17 ALPRAZolam [Xanax] 0.5 mg PO TID PRN PRN 11/22/18 Ascorbic Acid [Vitamin C] 500 mg PO DAILY 11/22/18 Insulin Aspart [Novolog Flexpen] 0 units SUBCUT TID 11/22/18 Ropinirole HCl [Requip] 0.5 mg PO QHS 11/22/18 Vit B Comp No.3/Folic/C/Biotin [Nephro-Reggie Rx Tablet] 1 ea PO DAILY 11/22/18 Insulin Glargine [Lantus SoloStar Pen] 4 units SUBCUT QHS #0 01/08/19 Primary Care Physician: Elijah Curtis MD [Primary Care Provider] - Within 2 Weeks Test Results: Test results from this visit will be discussed in further detail at your follow-up appointment, if applicable. [facility] When: Every Saturday, Saturday, Saturday Proposed Discharge Date: 01/08/19
--- NOTE | 2019-01-08 09:41 | PCM.DC.SUM ---
Discharge Date and Diagnosis - Problem List Patient Problems: Active and Suspected Problems (Last Updated 01/07/19 @ 12:03 by Misha Scott DO) Hypoglycemia (Acute) Encephalopathy acute (Acute) Date of Admission: 01/07/19 Date of Discharge: 01/08/19 - Primary Discharge Diagnosis Active and Suspected Problems (Last Updated 01/07/19 @ 12:03 by Misha Scott DO) Hypoglycemia (Acute) Encephalopathy acute (Acute) - Secondary Discharge Diagnosis Chronic Problems (Last Updated 01/07/19 @ 12:03 by Misha Scott DO) End stage renal disease on dialysis (Chronic) Polyclonal gammopathy (Chronic) PAF (paroxysmal atrial fibrillation) (Chronic) Glaucoma (Chronic) Depression (Chronic) Hyperuricemia (Chronic) Hypertension (Chronic) DM type 1 (diabetes mellitus, type 1) (Chronic) Anemia (Chronic) Hospital Course and Treatment Imaging Results: Clinical Impression(s) from Imaging Studies Brain CT 01/07/19 07:59 IMPRESSION: No acute intracranial process. 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 Electronically Signed: Dk Parham MD at 9:23 EDT Tel [phone], Service support , Declan Tomas: nephrology Operations: None Procedures: None Summary of Care Provided: The patient is a 48 year old F presents with a change in mental status from home. Patient was to be picked up to go to dialysis by her sister and I was not answering the door. Her sister was able to get in and found patient unresponsive. EMS was called patient was noted to be hypoglycemic. Patient did receive glucagon as well dextrose and blood sugars improved, however mental status did lag behind. By the time the patient was actually brought up to the floor, patient was alert and oriented x3 and was otherwise feeling well. Patient states that she has been compliant with her insulins and is taking 70 units of Lantus and then sliding scale of NovoLog with meals. States that she has not been compliant not taking more than the allotted dose and states that also, she is able to see the numbers on her insulin pens is not having any difficulty reading the numbers. The patient was monitored started on Lantus at 40 units and otherwise did well during her hospitalization. Patient's sister took me out of her room and stated that she is worried that the patient is not taking her insulin though the patient continues to state that she is checking her glucose multiple times per day is giving her insulin as instructed. Patient will be following up with a tape fastener machine operator up in [facility] and but has yet to set up an appointment. Patient is end-stage renal disease and did undergo dialysis on the evening of the . Patient will resume her normal dialysis sessions every Saturday. [] Patient Problems: Active and Suspected Problems (Last Updated 01/07/19 @ 12:03 by Misha Scott DO) Hypoglycemia (Acute) Encephalopathy acute (Acute) - Physical Exam General: Alert, No apparent distress HEENT: Atraumatic, Normocephalic Oral: Moist Mucosa, Ulcerations Present Neck: No Nodes, Thyroid Normal Size and Texture Lungs: Clear to auscultation, Normal air movement, No rhonchi, No wheeze, No rales Cardiovascular: Regular rate, Regular Rhythm, Normal S1, Normal S2, No murmurs Abdomen: Bowel Sounds Present, Soft, Non Tender, Non-Distended, No Hepato-splenomegaly Extremities: No edema, No Calf Tenderness Psych/Mental Status: Normal Affect, Appropriate Vital Signs Temp Pulse Resp BP Pulse Ox 36.8 C 65 16 143/72 H 94 01/08/19 04:29 01/08/19 04:29 01/08/19 04:29 01/08/19 04:29 01/08/19 04:29 Oxygen Delivery Method Room Air Weight: 82.7 kg Body Mass Index (BMI) 30.3 Finger Stick Blood Glucose 250 Intake and Output for Last 24 Hours 01/06/19 01/07/19 01/08/19 23:59 23:59 23:59 Intake Total 600 / 960 420 / 420 Output Total 4000 / 4000 Balance -3400 / -3040 420 / 420 Laboratory Tests Past 24 Hrs 01/07/19 07:35 Hemoglobin A1c 10.1 H POC Glucose 01/08/19 01/08/19 01/07/19 07:42 04:33 23:10 POC Glucose 255 H 203 H 116 H 01/07/19 01/07/19 01/07/19 22:21 21:57 16:52 POC Glucose 45 L 39 L* 373 H 01/07/19 01/07/19 01/07/19 11:47 09:47 07:31 POC Glucose 289 H 250 H 50 L Discharge Diet: 1800 Calorie Control Diet, Renal Diet Discharge Activity: Return to Normal Activity Call your doctor if you observe: - - low blood sugar. Home Medications: Medications to take at Discharge Albuterol Inhaler [Ventolin Hfa] 2 puff INHALATION Q4H PRN PRN 10/28/16 Allopurinol [Zyloprim] 200 mg PO DAILY 10/28/16 Ergocalciferol [Vitamin D] 50,000 unit PO MO 10/28/16 Fluticasone 0.05% [Flonase Nasal [place]] 1 spray NASAL DAILY PRN 10/28/16 Gabapentin [Neurontin] 300 mg PO QHS 10/28/16 Latanoprost 0.005% [Xalatan Opthalmic] 1 drop EACH EYE QHS 10/28/16 Venlafaxine XR [Effexor Xr] 187.5 mg PO DAILY 10/28/16 Sevelamer Carbonate [Renvela] 800 mg PO TID 05/17/17 ALPRAZolam [Xanax] 0.5 mg PO TID PRN PRN 11/22/18 Ascorbic Acid [Vitamin C] 500 mg PO DAILY 11/22/18 Insulin Aspart [Novolog Flexpen] 0 units SUBCUT TID 11/22/18 Ropinirole HCl [Requip] 0.5 mg PO QHS 11/22/18 Vit B Comp No.3/Folic/C/Biotin [Nephro-Reggie Rx Tablet] 1 ea PO DAILY 11/22/18 Insulin Glargine [Lantus SoloStar Pen] 4 units SUBCUT QHS #0 01/08/19 Primary Care Physician: Elijah Curtis MD [Primary Care Provider] - Within 2 Weeks Please Follow Up With: [facility] When: Every Saturday, Saturday, Saturday Disposition: Home Minutes spent on discharge:: 28 Patient Condition:: Good Medical Necessity - Tobacco Use Smoking Status: Never smoker Meaningful Use Info Meaningful Use Diagnoses (Choose all that apply): None applicable Code Visit OBSV E&M: 59474 Observation care discharge
[2019-01-08 10:06] VITALS: BP 142/71; PULSE 74; RESP 18; TEMP 36.7; O2SAT 99
[2019-01-08 11:15] VITALS: BP 142/71; PULSE 74; RESP 18; TEMP 36.7; O2SAT 99
--- NOTE | 2019-01-23 10:07 | CCN.REFER ---
Multiple phone calls made to home and next of Kin [place] with no returned calls. CCN information left on all voicemails.
== END 2019-01-08 09:41 | disposition home or self-care (01) ==
LOC: ED 09:53 → PCU 14:17
PROVIDERS: Emergency Provider Emergency Medicine; Family Provider Family Medicine; PCP Family Medicine
DX: E10.649 Type 1 diabetes mellitus with hypoglycemia without coma (principal); G93.41 Metabolic encephalopathy; Z79.4 Long term (current) use of insulin; I12.0 Hypertensive chronic kidney disease with stage 5 chronic kidney disease or end stage renal disease; E10.22 Type 1 diabetes mellitus with diabetic chronic kidney disease; N18.6 End stage renal disease; Z99.2 Dependence on renal dialysis; D47.2 Monoclonal gammopathy; I48.0 Paroxysmal atrial fibrillation; H40.9 Unspecified glaucoma; F32.9 Major depressive disorder, single episode, unspecified; F41.9 Anxiety disorder, unspecified; D64.89 Other specified anemias; Z79.899 Other long term (current) drug therapy
CPT/HCPCS: 70450; 80048; 82962; 83036; 85025; 90937; 99218; 99285; J7030; A4216; G0257; G0378; J1610

== ENCOUNTER 2019-01-19 06:53 | Emergency (ER) | payer MEDICARE, OTHER, MEDICAID, SELFPAY ==
[2019-01-07 10:55] VITALS: BMI 30.3
[2019-01-19 06:54] VITALS: BP 109/59; PULSE 56; RESP 12; TEMP 36.4; O2SAT 85; BMI 30.7
[2019-01-19 06:57] VITALS: O2SAT 999
--- NOTE | 2019-01-19 07:29 | ED.VISSUMM ---
- ER Visit Summary Date of Service: 01/19/19 Chief Complaint: Lower back pain History of Present Illness: The patient is a 48 F with stage renal disease with dialysis Saturday, Saturday and Saturday. Last run on Saturday was abbreviated. She is supposed to have dialysis today. Patient states the last 3 weeks she has had lower back pain at times it radiates to her legs. She denies any numbness or weakness. She is never had back surgery. Physical Examination: Middle-aged female no acute distress. Vital signs are stable and afebrile. H EENT exam unremarkable. Neck nontender. Lungs clear to auscultation. Heart regular rhythm no murmur. Abdomen is soft. No peritoneal signs. Patient is moving all 4 extremities. They are neurovascularly intact. She has both equal symmetrical director of intelligence strength. Dorsi and plantar flexion are intact. She can lift either leg off the bed. Has negative straight leg raise. No cauda equina. No saddle anesthesia. Normal medial thigh sensation. Back she has no reproducible tenderness to her back. The spine is nontender. There is no signs of trauma. Neurologically she is awake and alert with no focal motor deficits. No loss of sensation in her lower extremities. Test Results: None Emergency Department Course and Treatment: Patient has lower back pain but no physical findings at this time. She complains of leg pain but there is negative straight leg raise bilaterally. There is no weakness or numbness. She will be treated with 2 [place] here. Treatment Plan: Follow-up with her primary care physician. If back pain continues she may need imaging. Disposition: Discharge Impression: Acute musculoskeletal low back pain History of end-stage renal disease dialysis History of type 1 diabetes and hypertension This note was generated with [employer]gle dictation software. It may contain incorrect words, spelling, and punctuation that were not noted in review of the chart prior to signing ED Disposition - Plan for ED Patient: Referrals: Elijah Curtis MD [Primary Care Provider] -
--- NOTE | 2019-01-19 07:32 | ED.DEP ---
ED Disposition - Plan for ED Patient: Disposition: Home or Assisted Living Instructions: BACK PAIN (Acute or Chronic) Referrals: Elijah Curtis MD [Primary Care Provider] - 3-5 Days if not improving Additional Instructions: Follow-up with your primary care physician. If back pain not improving you may need imaging.
[2019-01-19] MEDS: HYDROcodone Bitartrate/Apap 5/325 Tablet PO (07:47)
[2019-01-19 07:55] VITALS: BP 107/68; PULSE 57; RESP 18; O2SAT 95
== END 2019-01-19 07:56 | disposition home or self-care (01) ==
PROVIDERS: Emergency Provider Emergency Medicine; Family Provider Family Medicine; PCP Family Medicine
DX: M54.5 Low back pain (principal); Z99.2 Dependence on renal dialysis; N18.6 End stage renal disease; I12.0 Hypertensive chronic kidney disease with stage 5 chronic kidney disease or end stage renal disease; E10.22 Type 1 diabetes mellitus with diabetic chronic kidney disease; Z79.4 Long term (current) use of insulin; Z79.899 Other long term (current) drug therapy
CPT/HCPCS: 99283

== ENCOUNTER 2019-01-23 18:12 | Inpatient (IN) | payer MEDICARE, OTHER, MEDICAID, SELFPAY ==
[2019-01-23 18:13] VITALS: BP 93/60; PULSE 58; RESP 19; TEMP 36.1; O2SAT 100; BMI 29.2
--- NOTE | 2019-01-23 18:51 | CT_ITS ---
STUDY: CT ABDOMEN AND PELVIS WITHOUT CONTRAST REASON FOR EXAM: Female, 48 years old. Abdominal pain with swelling. Missed dialysis. End-stage renal disease. TECHNIQUE: Transaxial images were obtained from the dome of the diaphragm to the symphysis pubis without oral contrast, and without intravenous contrast. Sagittal and coronal images were reconstructed. Individualized dose optimization techniques were used for this CT. COMPARISON: 06/22/2017 CT abdomen pelvis. FINDINGS: Partially visualized lower chest: faint ground glass attenuation bilateral lung bases. Upper normal heart size. Liver: [No concerning lesions.] Gallbladder and biliary tree: Status post cholecystectomy. No biliary ductal dilation. Pancreas: No pancreatic lesions or inflammation. Spleen: Normal size, no splenic lesions. Adrenal glands: No concerning masses. Kidneys and ureters: Atrophic kidneys bilaterally again demonstrated. No suspicious masses. Bilateral renal cortical calcifications. No hydronephrosis. Bowel: [Noninflamed appendix.] No obstruction or inflammation of the bowel. Urinary bladder: No stones or wall thickening. Decompressed. Reproductive: Status post hysterectomy. No concerning pelvic masses. Ovaries unremarkable. Vascular: No abdominal aortic aneurysm. Dense calcific atherosclerosis. Retroperitoneal and peritoneal spaces: Very large amount of ascites fills and expands the peritoneal cavity, surrounding bowel loops. 2 large compartments are seen, the larger in the left abdomen 26 x 22 x 34 cm TRV X AP X craniocaudad, and the smaller right-sided compartment 11 x 20 x 19 cm. These communicate anteriorly. Only trace fluid layers in the pelvis. No free air or extraluminal air. Osseous: No acute osseous abnormality. Chronic L5-S1 discitis unchanged. Abdominal and pelvic wall: Moderate anasarca. CT/Abdomen/Pelvis without Cont IMPRESSION: Very large amount of ascites fills and expands the peritoneal cavity, most of the fluid is within 2 large compartments as described above. The compartmentalization of the fluid suggests that it could potentially be loculated. Mild interstitial prominence lung bases likely mild edema. Evidence of chronic renal failure. Electronically Signed: Wilfredo Crowe, at 20:20 EDT Tel , Service support ,
--- NOTE | 2019-01-23 18:51 | EKG12_ITS ---
Test Reason : ABD PAIN Blood Pressure : / mmHG Vent. Rate : 055 BPM Atrial Rate : 055 BPM P-R Int : 208 ms QRS Dur : 106 ms QT Int : 492 ms P-R-T Axes : 029 019 076 degrees QTc Int : 470 ms Sinus bradycardia Lateral infarct , age undetermined Abnormal ECG Confirmed by MARIAH DIXON ([id number]), web content editor ADRIENNE ROACH ([id number]) on 01/26/2019 2:19:25 PM Referred By: Roberth Nguyen Confirmed By:MARIAH DIXON
--- NOTE | 2019-01-23 18:52 | RAD_ITS ---
STUDY: X-RAY CHEST REASON FOR EXAM: Female, 48 years old. Short of breath. TECHNIQUE: AP portable upright CXR COMPARISON: 11/22/2018 CXR FINDINGS: No apparent pneumothorax, pneumonia, pleural effusion, or edema. Mild elevation right hemidiaphragm, slightly low lung volumes unchanged. Cardiac silhouette, demarcus and mediastinal contours are within normal limits. No acute osseous abnormality. No evidence of free air under the diaphragm. RAD/Chest 1 View (Portable) IMPRESSION: Negative chest radiograph. Electronically Signed: Wilfredo Crowe, at 19:09 EDT Tel , Service support ,
[2019-01-23] MEDS: Morphine 4 MG/ML Syringe IV (19:33)
[2019-01-23] MEDS: Ondansetron 4 MG/2 ML Vial IV (19:33)
[2019-01-23 19:47] LABS: Absolute Neutrophil Count 5.7 X10^3/uL (2.0-7.7); Basophil# 0.02 X10^3/uL; Basophil% 0.3 % (0-1); Eosinophil# 0.19 X10^3/uL; Eosinophils% 2.6 % (0-5); Hematocrit 39.9 % (37-47); Hemoglobin 13.3 g/dL (12.0-15.0); Lymphocyte % 10.9 % (19-41); Mean Corp Hgb Conc 33.3 g/dL (32-36); Mean Corpuscular Hgb 32.8 pg (27.0-32.0); Mean Corpuscular Volume 98.3 fL (81-99); Mean Platelet Vol. 12.3 fl (6.2-12.0); Monocyte# 0.59 X10^3/uL; NRBC Flagged by Analyzer 0 % (0-5); Neutrophil # 5.72 X10^3/uL (2.7-7.7); Neutrophil % 77.8 % (47-70); Platelet Count 221 K/mm3 (150-450); RBC Distribution Width CV 13.8 % (11.6-14.6); RBC Distribution Width SD 49.8 fl (35.1-43.9); Red Blood Count 4.06 M/mm3 (4.2-5.4); White Blood Count 7.4 K/mm3 (4.4-11.0)
[2019-01-23 20:31] LABS: ALB/GLOB Ratio 0.5 RATIO (0.9-2.4); AST(SGOT) 254 U/L (15-37); Alanine Aminotransfer ALT/SGPT 146 U/L (13-56); Albumin, Serum 2.5 g/dL (3.2-5.0); Alkaline Phosphatase 1476 U/L (45-117); Anion Gap 12 (5-15); BUN 53 mg/dL (7-18); BUN/Creat Ratio 6.2 RATIO (10-20); Calcium,Total 9.2 mg/dL (8.5-10.1); Chloride 96 mmol/L (98-107); Creatinine, Serum 8.57 mg/dL (0.55-1.02); EST Glomerular Filtration Rate 5 mL/min (>60); Est Glom Filt Rate - Afr Amer 6 mL/min (>60); Estimated Creatinine Clearance 7.22 ml/min; Globulin 5.5 g/dL (2.2-4.2); Glucose 211 mg/dL (74-106); Lipase 31 U/L (73-393); Potassium 5.2 mmol/L (3.5-5.1); Sodium Level 133 mmol/L (136-145)
--- NOTE | 2019-01-23 21:15 | ED.DCSUM_ITS ---
- ER Visit Summary Date of Service: 01/23/19 Chief Complaint: Abdominal pain] History of Present Illness: The patient is a 48 F [resents to the emergency room with complaint of abdominal pain that started 2 days ago. Patient states that she is had continuous pain that somewhat diffuse and she complains of abdominal distention. Patient had some dry heaves. She denies any diarrhea. She denies any blood in her stool or black tarry stool. She denies urinary symptoms. She is never had pain like this before. Patient has history of diabetes, hypertension, high cholesterol and end-stage renal disease. Patient missed her dialysis today. Patient states she did not feel well enough to go to dialysis. Patient was called today and told that her potassium was elevated from 2 days ago. She denies any chest pain or shortness of breath. She has had prior cholecystectomy and hysterectomy.] Physical Examination: [HEENT-PERRLA, EOMI. Cranial nerves II through XII grossly intact. TMs clear. Mucous membranes moist. No adenopathy. Cardiovascular-regular rate and rhythm without murmur or ectopy Lungs-clear to auscultation, chest wall stable without crepitus or subcu emphysema Abdomen-normoactive bowel sounds. Patient has diffuse abdominal distention. Patient has diffuse tenderness on palpation. There is no rebound, rigidity,. Signs. Extremities-intact ?4, normal range of motion, normal pulses, atraumatic]. Patient has trace edema both lower extremities but symmetric. Test Results: [CBC with differential obtained showing a 7.4, hemoglobin 13, hematocrit 40, platelets 221. Chemistries unremarkable other than a slightly elevated potassium of 5.2 and a creatinine of 8.57. Total bilirubin was 2.2. Alk phos was 1476. ALT was 146, AST 254, lipase 31. Troponin was less than 0.15. Chest x-ray showed nothing acute. CT scan of the M pelvis showed very large amount of ascites that feels expand the peritoneal cavity most of the fluids within 2 large compartments in the compartmentalization of the fluid suggested could potentially be loculated. Patient also had mild interstitial prominence lung bases likely mild edema. Patient also with some evidence of some chronic renal failure.] Emergency Department Course and Treatment: [She was medicated with morphine and Zofran.] Treatment Plan: [Plan will be to admit patient to hospital for further management of her ascites and to manage her pain. Patient will require dialysis.] Disposition: [Admit] Impression: [Abdominal Elevated liver enzymes pain Ascites Chronic renal failure] This note was generated with [employer] Track dictation software. It may contain incorrect words, spelling, and punctuation that were not noted in review of the chart prior to signing ED Disposition - Plan for ED Patient: Referrals: Elijah Curtis MD [Primary Care Provider] -
--- NOTE | 2019-01-23 21:22 | HP.PCM_ITS ---
Problem List (1) Ascites Status: Acute (2) Hypoglycemia Status: Inactive History of Present Illness Date of Admission: 01/23/19 Chief Complaint: abdominal pain The patient is a 48 year old F with a significant history of end-stage renal disease from diabetes; hypertension; diabetes mellitus who presents emergency department with 2-day history of constant diffuse abdominal pain. Per patient at his last dialysis she began to have abdominal pain. Her abdominal pain is achy type of pain. Her pain is constant. Reportedly in the last week her belly has been distended. Associated with her symptoms is nausea and dry heaving without vomiting. Because of pain in her abdomen patient missed her dialysis. Her dialysis group called and notify her her potassium on her last dialysis was elevated and a repeat potassium should be done. Abdomen and pelvis CT at the emergency department showed very large amount of ascites in 2 compartments and mild interstitial prominence of lung bases. Patient PCP is Dr. Elijah Curtis at [facility]. Past Medical History Past Medical History (Chronic Problems): Chronic Problems (Last Reviewed 01/24/19 @ 02:43 by Roberth Nguyen MD) End stage renal disease on dialysis (Chronic) Polyclonal gammopathy (Chronic) PAF (paroxysmal atrial fibrillation) (Chronic) Glaucoma (Chronic) Depression (Chronic) Hyperuricemia (Chronic) Hypertension (Chronic) DM type 1 (diabetes mellitus, type 1) (Chronic) Anemia (Chronic) Medical History: Medical History (Last Reviewed 01/24/19 @ 02:43 by Roberth Nguyen MD) End stage renal disease on dialysis (Chronic) N18.6, Z99.2 Polyclonal gammopathy (Chronic) D89.0 PAF (paroxysmal atrial fibrillation) (Chronic) I48.0 Glaucoma (Chronic) H40.9 Depression (Chronic) F32.9 Hyperuricemia (Chronic) E79.0 Hypertension (Chronic) I10 DM type 1 (diabetes mellitus, type 1) (Chronic) E10.9 Hyponatremia (Acute) E87.1 Anemia (Chronic) D64.9 Metabolic encephalopathy G93.41 DKA (diabetic ketoacidoses) E13.10 Hypoglycemia (Resolved) E16.2 Malnutrition (Resolved) E46 Pulmonary edema (Resolved) J81.1 Seizure (Resolved) R56.9 ddue to hypoglycemia Warfarin-induced coagulopathy (Resolved) D68.32, T45.515A Allergies Penicillins [PCN] Allergy (Verified 01/23/19 18:12) Hives Home Medications: Ambulatory Orders Medication Instructions Recorded Albuterol Inhaler [Ventolin Hfa] 2 puff INHALATION Q4H PRN PRN 10/28/16 Allopurinol [Zyloprim] 200 mg PO DAILY 10/28/16 Ergocalciferol [Vitamin D] 50,000 unit PO MO 10/28/16 Fluticasone 0.05% [Flonase Nasal 1 spray NASAL DAILY PRN 10/28/16 [place]] Gabapentin [Neurontin] 300 mg PO QHS 10/28/16 Latanoprost 0.005% [Xalatan 1 drop EACH EYE QHS 10/28/16 Opthalmic] Venlafaxine XR [Effexor Xr] 187.5 mg PO DAILY 10/28/16 Sevelamer Carbonate [Renvela] 800 mg PO TID 05/17/17 ALPRAZolam [Xanax] 0.5 mg PO TID PRN PRN 11/22/18 Ascorbic Acid [Vitamin C] 500 mg PO DAILY 11/22/18 Insulin Aspart [Novolog Flexpen] 0 units SUBCUT TID 11/22/18 Ropinirole HCl [Requip] 0.5 mg PO QHS 11/22/18 Vit B Comp No.3/Folic/C/Biotin 1 ea PO DAILY 11/22/18 [Nephro-Reggie Rx Tablet] Insulin Glargine [Lantus SoloStar 4 units SUBCUT QHS #0 01/08/19 Pen] Surgical History: cholecystectomy, hysterectomy, tonsillectomy, - - PD catheter placement, tunneled dialysis catheter placement, AVF 06/08/17. Psychiatric History: Anxiety, Depression [employer] History: No pertinent [employer] history Smoking Status: Former smoker Alcohol: None - *Family History Paternal History Items: Diabetes, Heart Disease Maternal History Items: Cancer - Thyroid cancer and lung cancer, Diabetes, Heart Disease Review of Systems Constitutional: Denies: Chills, Fever HEENT: Denies: Head Aches, Sinus Congestion, Sinus Drainage Cardiovascular: Denies: Chest Pain, Palpitations Respiratory: Denies: Cough, Shortness of breath at rest, Sputum production Gastrointestinal: Reports: Abdominal Pain, Nausea. Denies: Vomiting Genitourinary: Denies: Dysuria Musculoskeletal: Denies: Joint Pain, Joint Tenderness Skin: Denies: Rash, Wounds Neurological: Denies: Numbness, Tingling, Focal weakness Psychiatric: Denies: Anxiety, Depression, Homicidal Ideations, Suicidal Ideations Hematologic/ Lymphatic: Denies: Easy Bruising, Easy Bleeding VTE Information - Inpt Only VTE Present on Admission: No VTE Mechan Device Prophylaxis: SCD's VTE Pharm Prophylaxis ordered?: No Patient Problems: Active and Suspected Problems (Last Reviewed 01/24/19 @ 02:43 by Roberth Nguyen MD) Ascites (Acute) - Physical Exam General: Alert, Oriented x3, Cooperative HEENT: Atraumatic, PERRLA, EOMI, Normocephalic Neck: Supple, No JVD, Negative Carotid Bruits Lungs: Clear to auscultation, Normal air movement Cardiovascular: Regular rate, No murmurs Abdomen: Bowel Sounds Present, Soft, Distended, - - With fluid wave Extremities: No edema, Capillary Refill Less than 3 Seconds Skin: No rashes, No breakdown Musculoskeletal: No Tenderness to Palpation of Joints or Extremities Neurological: Cranial nerves II-XII grossly intact Psych/Mental Status: Normal Affect, Appropriate Vital Signs Temp Pulse Resp BP Pulse Ox 97.0 F L 58 L 19 H 93/60 100 01/23/19 18:13 01/23/19 18:13 01/23/19 18:13 01/23/19 18:13 01/23/19 18:13 Oxygen Delivery Method Room Air Weight: 81 kg Body Mass Index (BMI) 29.2 Finger Stick Blood Glucose 250 Laboratory Tests Past 24 Hrs 01/23/19 01/23/19 19:30 19:30 WBC 7.4 RBC 4.06 L Hgb 13.3 Hct 39.9 MCV 98.3 MCH 32.8 H MCHC 33.3 RDW Std Deviation 49.8 H RDW Coeff of Tegan 13.8 Plt Count 221 MPV 12.3 H Immature Gran % (Auto) 0.400 Neut % (Auto) 77.8 H Lymph % (Auto) 10.9 L [place] % (Auto) 8.0 Eos % (Auto) 2.6 Baso % (Auto) 0.3 Absolute Neuts (auto) 5.7 Absolute Lymphs (auto) 0.80 L Nucleated RBC % 0 Sodium 133 L Potassium 5.2 H Chloride 96 L Carbon Dioxide 25.0 Anion Gap 12 BUN 53 H Creatinine 8.57 H* Estim Creat Clear Calc 7.22 Est GFR (MDRD) Af Amer 6 L Est GFR (MDRD) Non-Af 5 L BUN/Creatinine Ratio 6.2 L Glucose 211 H Calcium 9.2 Total Bilirubin 2.20 H AST 254 H ALT 146 H Alkaline Phosphatase 1476 H Troponin I 0.026 Total Protein 8.0 Albumin 2.5 L Globulin 5.5 H Albumin/Globulin Ratio 0.5 L Lipase 31 L Assessment/Plan All Active Problems (Last Reviewed 01/24/19 @ 02:43 by Roberth Nguyen MD) Hyperphosphatemia (Resolved) Lactic acidosis (Resolved) Abnormal LFTs (Resolved) Metabolic acidosis (Resolved) Encephalopathy acute (Acute) Ascites (Acute) Hyperkalemia (Acute) Acute respiratory failure with hypoxia (Acute) Hyponatremia (Acute) Hypoglycemia (Resolved) Malnutrition (Resolved) Pulmonary edema (Resolved) Seizure (Resolved) Warfarin-induced coagulopathy (Resolved) The patient is a 48 year old F with a significant history of end-stage renal disease from diabetes (dialysis Wednesdays and Fridays); hypertension; diabetes mellitus who presents emergency department with 2-day history of constant diffuse abdominal pain with radiographic findings of ascites and severely elevated liver enzymes. Ascites Etiology is unclear at this time. Abdomen and pelvis CT showed very large amount of ascites in 2 compartments and mild interstitial prominence of lung bases. Will order ultrasound paracentesis with fluid studies including cytology. We will get acute hepatitis panel. Reportedly patient reported that hepatitis B done at that visit this year was unremarkable. Check PT INR Elevated liver enzymes Acute hepatitis panel as above. Consider other studies like CMV and EBV if necessary. Get GGT End-stage renal disease Dialysis Saturday Nephrology consult Calorie controlled and renal diet Home sevelamer continued Diabetes mellitus Presentation her blood glucose was not within goal. She reports taking Lantus as needed at home and not all the time because of episodes of hypoglycemia with Lantus. Hold Lantus for now. On correction scale insulin; continue. Accu-Chek q. before meals and at bedtime. DVT Prophylaxis SCD. Code Visit Inpatient E&M: 17358 Init Hosp L3
[2019-01-23 21:36] VITALS: BP 100/58; PULSE 55; RESP 12; O2SAT 93
--- NOTE | 2019-01-23 22:34 | US_ITS ---
PROCEDURE: Ultrasound guided paracentesis. DATE OF EXAMINATION: January 26, 2019. INDICATION: Female, 48 years old. Ascites. PHYSICIAN: Thuan Benton M.D. TECHNIQUE: The risks, benefits, and alternatives to the procedure were explained to the patient. The specific risks of bleeding, infection, and damage to bowel were detailed and accepted. Witnessed informed consent was obtained. The abdomen was ultrasonographically surveyed. An appropriate pocket of fluid was identified at the right lower quadrant. The skin were cleaned and prepped in the usual sterile fashion. Using ultrasound guidance, the peritoneal cavity was accessed with a 5-Filipino paracentesis needle/catheter system. The trocar was removed. A total of 6020 ml of brown-colored fluid were removed from the peritoneal cavity. A 120 mL sample was sent to the laboratory for analysis. The catheter was removed and a sterile dressing was applied. The procedure was well tolerated. US/Paracentesis with US IMPRESSION: Ultrasound guided paracentesis. Electronically Signed: Thuan Benton, at 11:21 EDT , Service support ,
[2019-01-23 22:53] VITALS: BMI 30.1; BMI 30.2
[2019-01-23 23:17] LABS: GGTP 266 U/L (5-55)
[2019-01-23 23:20] VITALS: BP 90/60; PULSE 60; RESP 16; TEMP 36.6; O2SAT 95
[2019-01-23] MEDS: Insulin Lispro 100 UNIT/ML INSULN.PEN SC (23:23)
[2019-01-23] MEDS: Gabapentin 300 MG Capsule PO (23:25)
[2019-01-23] MEDS: Latanoprost 0.005% 1 Bottle 1 DRP EACH EYE (23:25)
[2019-01-23] MEDS: Pramipexole Di-HCl 0.25 MG Tablet PO (23:25)
[2019-01-23 23:28] VITALS: PULSE 59
[2019-01-23 23:35] LABS: Bedside Glucose 192 mg/dL (70-110)
[2019-01-24] VITALS (13 sets, daily range): BP systolic 92–129; BP diastolic 54–64; PULSE 55–90; RESP 16–20; TEMP 36.4–36.8; O2SAT 94–99
[2019-01-24] MEDS: Ondansetron 4 MG/2 ML Vial IV (04:43)
[2019-01-24] MEDS: 0.9% NaCl Peripheral Flush Adult/Peds IV ×3 (04:44→06:58)
--- NOTE | 2019-01-24 04:45 | NURSING ---
RN CALLED TO ROOM, PATIENT HAVING EMESIS LIGHT BROWN IN COLOR. STATES THROAT IS BURNING . RN GAVE PATIENT JOAQUIM PER JUL. PATIENT STATES SHE HAS BEEN VOMITING LIKE THIS FOR WEEKS AT HOME. WILL MONITOR.
[2019-01-24] MEDS: Morphine 2 MG/ML Syringe IV (05:44)
[2019-01-24 06:13] LABS: Anion Gap 20 (5-15); BUN 58 mg/dL (7-18); BUN/Creat Ratio 6.6 RATIO (10-20); Calcium,Total 9.2 mg/dL (8.5-10.1); Chloride 96 mmol/L (98-107); Creatinine, Serum 8.79 mg/dL (0.55-1.02); EST Glomerular Filtration Rate 5 mL/min (>60); Est Glom Filt Rate - Afr Amer 6 mL/min (>60); Estimated Creatinine Clearance 7.04 ml/min; Glucose 155 mg/dL (74-106); Potassium 5.4 mmol/L (3.5-5.1); Sodium Level 136 mmol/L (136-145)
[2019-01-24 06:42] LABS: International Normalized Ratio 1.3
[2019-01-24] MEDS: proCHLORPERazine 10 MG/2 ML Vial 5 MG IV (06:58)
[2019-01-24 07:10] LABS: Bedside Glucose 203 mg/dL (70-110)
[2019-01-24] MEDS: Allopurinol 100 MG Tablet 200 MG PO (10:32)
[2019-01-24] MEDS: SEVELAMER CARBONATE 800 MG TABLET PO (10:32)
[2019-01-24 11:26] LABS: Bedside Glucose 260 mg/dL (70-110)
[2019-01-24] MEDS: Ondansetron 8 MG Tablet PO ×2 (12:23→21:57)
--- NOTE | 2019-01-24 13:11 | PCM.PROGNOTE ---
<Alex Roberts - Last Filed: 01/24/19 13:11> Patient Problems: Active and Suspected Problems (Last Updated 01/24/19 @ 09:28 by Daniella Donald MD) Ascites (Acute) Subjective: Pt has severe abdominal distention and mild abdominal pain. Currently no nausea. Did have an episode of vomiting this AM. She denies a hx of liver problems. She has never had ascites like this before. She did not have dialysis Saturday because she was not feeling well. Last full dialysis Saturday. Dr. Cannon is her svp marketing. No LE edema. No SOB. - Physical Exam General: Alert, Oriented x3, Cooperative HEENT: Atraumatic, PERRLA, EOMI, Normocephalic Neck: Supple, No JVD, Negative Carotid Bruits Lungs: Clear to auscultation, Normal air movement Cardiovascular: Regular rate, No murmurs Abdomen: Soft, Hypoactive Bowel Sounds, Distended, Tender - diffuse no guarding or rigidity Extremities: No edema, Capillary Refill Less than 3 Seconds Skin: No rashes, No breakdown Musculoskeletal: No Tenderness to Palpation of Joints or Extremities Neurological: Cranial nerves II-XII grossly intact Psych/Mental Status: Normal Affect, Appropriate Vital Signs Temp Pulse Resp BP Pulse Ox 98.1 F 77 18 106/64 97 01/24/19 12:18 01/24/19 12:18 01/24/19 12:18 01/24/19 12:18 01/24/19 12:18 Oxygen Delivery Method Room Air Weight: 181 lb 3.52 oz Body Mass Index (BMI) 30.1 Finger Stick Blood Glucose 250 Intake and Output for Last 24 Hours 01/22/19 01/23/19 01/24/19 23:59 23:59 23:59 Intake Total 200 / 200 Balance 200 / 200 Laboratory Tests Past 24 Hrs 01/23/19 01/23/19 01/23/19 19:30 19:30 19:30 WBC 7.4 RBC 4.06 L Hgb 13.3 Hct 39.9 MCV 98.3 MCH 32.8 H MCHC 33.3 RDW Std Deviation 49.8 H RDW Coeff of Tegan 13.8 Plt Count 221 MPV 12.3 H Immature Gran % (Auto) 0.400 Neut % (Auto) 77.8 H Lymph % (Auto) 10.9 L [place] % (Auto) 8.0 Eos % (Auto) 2.6 Baso % (Auto) 0.3 Absolute Neuts (auto) 5.7 Absolute Lymphs (auto) 0.80 L Nucleated RBC % 0 PT INR Sodium 133 L Potassium 5.2 H Chloride 96 L Carbon Dioxide 25.0 Anion Gap 12 BUN 53 H Creatinine 8.57 H* Estim Creat Clear Calc 7.22 Est GFR (MDRD) Af Amer 6 L Est GFR (MDRD) Non-Af 5 L BUN/Creatinine Ratio 6.2 L Glucose 211 H Calcium 9.2 Total Bilirubin 2.20 H GGT 266 H AST 254 H ALT 146 H Alkaline Phosphatase 1476 H Ammonia Troponin I 0.026 Total Protein 8.0 Albumin 2.5 L Globulin 5.5 H Albumin/Globulin Ratio 0.5 L Lipase 31 L 01/24/19 01/24/19 01/24/19 05:10 06:28 10:26 WBC RBC Hgb Hct MCV MCH MCHC RDW Std Deviation RDW Coeff of Tegan Plt Count MPV Immature Gran % (Auto) Neut % (Auto) Lymph % (Auto) [place] % (Auto) Eos % (Auto) Baso % (Auto) Absolute Neuts (auto) Absolute Lymphs (auto) Nucleated RBC % PT 16.0 H INR 1.3 Sodium 136 Potassium 5.4 H Chloride 96 L Carbon Dioxide 20.0 L Anion Gap 20 H BUN 58 H Creatinine 8.79 H* Estim Creat Clear Calc 7.04 Est GFR (MDRD) Af Amer 6 L Est GFR (MDRD) Non-Af 5 L BUN/Creatinine Ratio 6.6 L Glucose 155 H Calcium 9.2 Total Bilirubin GGT AST ALT Alkaline Phosphatase Ammonia 15.0 Troponin I Total Protein Albumin Globulin Albumin/Globulin Ratio Lipase POC Glucose 01/24/19 01/24/19 01/23/19 11:19 06:57 23:10 POC Glucose 260 H 203 H 192 H Medical Necessity - Tobacco Use Smoking Status: Former smoker Assessment/Plan All Active Problems (Last Updated 01/24/19 @ 09:28 by Daniella Donald MD) Ascites (Acute) 1. Ascites unclear etiology - Large ascites on CT 2 compartments possibly loculated. LFTs abnormal, GGT elevated, unclear why. Hepatitis panel ordered. Also she missed hemodialysis Saturday. Dr. Kassandra Consulted. Cannot have paracentesis until Saturday - fluids ordered. Needs dialysis. Ammonia normal. Recheck CMP in AM. CXR neg. 2. ESRD - as above - last full session Saturday. K elevated. Kayex x 1. Continue renvela. 3. Dmt1 - SSI. Resume lantus at 4. Depression/Anx - venlafaxine, xanax. 5. RLS - mirapex DVT ppx:SCDs DC planning: paracentesis Saturday. This patient was seen by Alex Roberts PA-C under the supervision of Doctor Shabana. <Daniella Donald E - Last Filed: 01/24/19 13:40> - Physical Exam Vital Signs Temp Pulse Resp BP Pulse Ox 98.1 F 77 18 106/64 97 01/24/19 12:18 01/24/19 12:18 01/24/19 12:18 01/24/19 12:18 01/24/19 12:18 Oxygen Delivery Method Room Air Weight: 181 lb 3.52 oz Body Mass Index (BMI) 30.1 Finger Stick Blood Glucose 250 Intake and Output for Last 24 Hours 01/22/19 01/23/19 01/24/19 23:59 23:59 23:59 Intake Total 200 / 200 Balance 200 / 200 Laboratory Tests Past 24 Hrs 01/23/19 01/23/19 01/23/19 19:30 19:30 19:30 WBC 7.4 RBC 4.06 L Hgb 13.3 Hct 39.9 MCV 98.3 MCH 32.8 H MCHC 33.3 RDW Std Deviation 49.8 H RDW Coeff of Tegan 13.8 Plt Count 221 MPV 12.3 H Immature Gran % (Auto) 0.400 Neut % (Auto) 77.8 H Lymph % (Auto) 10.9 L [place] % (Auto) 8.0 Eos % (Auto) 2.6 Baso % (Auto) 0.3 Absolute Neuts (auto) 5.7 Absolute Lymphs (auto) 0.80 L Nucleated RBC % 0 PT INR Sodium 133 L Potassium 5.2 H Chloride 96 L Carbon Dioxide 25.0 Anion Gap 12 BUN 53 H Creatinine 8.57 H* Estim Creat Clear Calc 7.22 Est GFR (MDRD) Af Amer 6 L Est GFR (MDRD) Non-Af 5 L BUN/Creatinine Ratio 6.2 L Glucose 211 H Calcium 9.2 Total Bilirubin 2.20 H GGT 266 H AST 254 H ALT 146 H Alkaline Phosphatase 1476 H Ammonia Troponin I 0.026 Total Protein 8.0 Albumin 2.5 L Globulin 5.5 H Albumin/Globulin Ratio 0.5 L Lipase 31 L 01/24/19 01/24/19 01/24/19 05:10 06:28 10:26 WBC RBC Hgb Hct MCV MCH MCHC RDW Std Deviation RDW Coeff of Tegan Plt Count MPV Immature Gran % (Auto) Neut % (Auto) Lymph % (Auto) [place] % (Auto) Eos % (Auto) Baso % (Auto) Absolute Neuts (auto) Absolute Lymphs (auto) Nucleated RBC % PT 16.0 H INR 1.3 Sodium 136 Potassium 5.4 H Chloride 96 L Carbon Dioxide 20.0 L Anion Gap 20 H BUN 58 H Creatinine 8.79 H* Estim Creat Clear Calc 7.04 Est GFR (MDRD) Af Amer 6 L Est GFR (MDRD) Non-Af 5 L BUN/Creatinine Ratio 6.6 L Glucose 155 H Calcium 9.2 Total Bilirubin GGT AST ALT Alkaline Phosphatase Ammonia 15.0 Troponin I Total Protein Albumin Globulin Albumin/Globulin Ratio Lipase POC Glucose 01/24/19 01/24/19 01/23/19 11:19 06:57 23:10 POC Glucose 260 H 203 H 192 H Assessment/Plan Hospitalist note: I am seeing this patient in conjunction with Alex Roberts. I independently seen and examined the patient. Progress note above, laboratory data and imaging studies reviewed and I concur with the above work-up and treatment plan. This morning, patient mentioned that her abdominal pain improved compared to yesterday but still there and it is mild. She still having significant abdominal distention. She denied drinking alcohol and she denies any past history of liver disease. She was admitted for ascites and this is a new diagnosis and never had a problem like this before. She missed her dialysis yesterday because she was sick. He denied any heart disease, congestive heart failure or history of cancer. She is afebrile, heart rate stable, blood pressure is borderline, pulse ox is 96% on room air. - Physical Exam General: Alert, Oriented x3, Cooperative, No apparent distress, about to fall asleep while talking to the patient. HEENT: Atraumatic, PERRLA, EOMI. Neck: Supple, No JVD, Negative Carotid Bruits, Trachea Midline, Thyroid Normal. Lungs: Diminished breath sounds bilateral, otherwise clear, No rhonchi, No wheeze, No rales. Cardiovascular: Regular rate, Regular Rhythm, Normal S1, Normal S2, PMI Normal. Abdomen: Soft, hypoactive bowel sounds, he usually distended, ascites, no tenderness, no guarding or rigidity. Extremities: No clubbing, No cyanosis, No edema Skin: No rashes, No breakdown Neurological: Cranial nerves are intact, neuro grossly intact Assessment and plan: #1 newly diagnosed ascites: Unclear etiology. She denies history of CHF, liver disease or drinking alcohol. It could be due to ESRD or hepatorenal syndrome. She does have a history of end-stage renal disease and she is on hemodialysis. Her LFTs are abnormal. On the CT scan abdomen, liver size looks normal but no comment on the liver size on the official report but no concerning lesions. Her bilirubin, liver transaminases, alkaline phosphatase and GGT are elevated and they have been elevated in the past as well. Ammonia level is normal. Lipase was normal. Her pro time is 16 and INR was 1.3. Probable early hepatic failure is possible. Plan: Diagnostic and therapeutic paracentesis, ascitic fluid analysis for cell count with differential, glucose, protein, LDH, Gram stain, culture, cytology. #2 elevated LFT: Unclear etiology. All bilirubin, GGT, liver transaminases and alkaline phosphatase are elevated and they were elevated in the past as well. Liver size on the CAT scan looked normal. Patient denied drinking alcohol. Plan for diagnostic paracentesis as above. #3 ESRD: On hemodialysis, she missed her dialysis yesterday because she felt sick. She goes on dialysis on Mondays, Wednesdays and Fridays. Today's potassium is 5.4. 1 dose of Kayexalate given. Nephrology consulted. #4 other chronic medical problems: Stable, continue current medication as above. This note was generated with [employer] dictation software. It may contain incorrect words, spelling, and punctuation that were not noted in checking the note before signing. Code Visit Inpatient E&M: 14825 [facility] Hosp L3
[2019-01-24] MEDS: Sodium Polystyrene Sulfonate 15 GM/60 ML UDC PO (14:05)
[2019-01-24] MEDS: oxyCODONE 5 MG Tablet PO ×2 (16:32→22:55)
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
[2019-01-24 16:41] LABS: Bedside Glucose 234 mg/dL (70-110)
[2019-01-24] MEDS: Lidocaine 5% Patch 1 PATCH TOPICAL (18:51)
--- NOTE | 2019-01-24 19:25 | DIALYSIS ---
Pt tolerated 2hr HD tx with very labile bp's, reolved with NS rinse and no UF. UF Even. See flow record for tx data.
[2019-01-24] MEDS: Latanoprost 0.005% 1 Bottle 1 DRP EACH EYE (22:55)
[2019-01-24] MEDS: Gabapentin 300 MG Capsule PO (22:55)
[2019-01-24] MEDS: Pramipexole Di-HCl 0.25 MG Tablet PO (22:55)
[2019-01-24 23:10] LABS: Bedside Glucose 162 mg/dL (70-110)
[2019-01-25] VITALS (9 sets, daily range): BP systolic 105–123; BP diastolic 65–70; PULSE 88–98; RESP 14–18; TEMP 36.3–36.7; O2SAT 94–100
--- NOTE | 2019-01-25 04:45 | NURSING ---
This RN has assessed patient numerous times throughout night due to nausea and vomiting. Patient refuses to have an IV started to help with nausea. This RN explained to patient how it would allow for nausea medication to be given through IV. This would help alleviate nausea better than by mouth medication she is not able to keep down. This RN explained different types of nausea medication and their routes. This RN explained she could call the Doctor to see if any other routes were an option. Patient refused IV or injection at this time.
[2019-01-25 05:55] LABS: Absolute Lymphocyte Count 0.68 X10^3/uL (0.83-4.51); Absolute Neutrophil Count 7.9 X10^3/uL (2.0-7.7); Basophil# 0.03 X10^3/uL; Basophil% 0.3 % (0-1); Eosinophil# 0.06 X10^3/uL; Eosinophils% 0.6 % (0-5); Hematocrit 39.6 % (37-47); Hemoglobin 13.1 g/dL (12.0-15.0); Lymphocyte # 0.68 X10^3/ul (4.0); Lymphocyte % 7.2 % (19-41); Mean Corp Hgb Conc 33.1 g/dL (32-36); Mean Corpuscular Hgb 31.9 pg (27.0-32.0); Mean Corpuscular Volume 96.4 fL (81-99); Mean Platelet Vol. 11.7 fl (6.2-12.0); Monocyte# 0.71 X10^3/uL; Monocyte% 7.6 % (0-10); NRBC Flagged by Analyzer 0 % (0-5); Neutrophil # 7.86 X10^3/uL (2.7-7.7); Neutrophil % 83.8 % (47-70); Platelet Count 208 K/mm3 (150-450); RBC Distribution Width CV 14.6 % (11.6-14.6); RBC Distribution Width SD 50.3 fl (35.1-43.9); Red Blood Count 4.11 M/mm3 (4.2-5.4); White Blood Count 9.4 K/mm3 (4.4-11.0)
[2019-01-25 06:26] LABS: ALB/GLOB Ratio 0.5 RATIO (0.9-2.4); AST(SGOT) 64 U/L (15-37); Alanine Aminotransfer ALT/SGPT 95 U/L (13-56); Albumin, Serum 2.3 g/dL (3.2-5.0); Alkaline Phosphatase 1430 U/L (45-117); Anion Gap 17 (5-15); BUN 45 mg/dL (7-18); BUN/Creat Ratio 6.1 RATIO (10-20); Calcium,Total 8.7 mg/dL (8.5-10.1); Chloride 93 mmol/L (98-107); Creatinine, Serum 7.41 mg/dL (0.55-1.02); EST Glomerular Filtration Rate 6 mL/min (>60); Est Glom Filt Rate - Afr Amer 8 mL/min (>60); Estimated Creatinine Clearance 8.35 ml/min; Glucose 182 mg/dL (74-106); Potassium 4.7 mmol/L (3.5-5.1); Protein, Total 7.3 g/dL (6.4-8.2); Sodium Level 137 mmol/L (136-145)
[2019-01-25 07:06] LABS: Bedside Glucose 171 mg/dL (70-110)
[2019-01-25] MEDS: proMETHazine 25 MG/ML Syringe 12.5 MG IM (10:11)
[2019-01-25] MEDS: Lidocaine 5% Patch 1 PATCH TOPICAL (10:12)
[2019-01-25 11:09] LABS: International Normalized Ratio 1.4; Prothrombin Time (Protime)PT. 16.7 SECONDS (11.7-14.9)
--- NOTE | 2019-01-25 11:14 | PCM.PROGNOTE ---
<Alex Roberts - Last Filed: 01/25/19 11:14> Patient Problems: Active and Suspected Problems (Last Updated 01/24/19 @ 13:27 by Daniella Donald MD) Ascites (Acute) Subjective: Patient complains of worsening nausea, abdominal distention, abdominal pain, and back pain. She also has some mild SOB, no hypoxia or O2 needs. No cough. No diarrhea. + BM yesterday. No LH/dizziness. - Physical Exam General: Alert, Oriented x3, Cooperative HEENT: Atraumatic, PERRLA, EOMI, Normocephalic Neck: Supple, No JVD, Negative Carotid Bruits Lungs: Clear to auscultation, Normal air movement Cardiovascular: Regular rate, No murmurs Abdomen: Hypoactive Bowel Sounds, Distended, Tender - diffusely tender to light palpation. Extremities: No edema, Capillary Refill Less than 3 Seconds Skin: No rashes, No breakdown Musculoskeletal: No Tenderness to Palpation of Joints or Extremities Neurological: Cranial nerves II-XII grossly intact Psych/Mental Status: Normal Affect, Appropriate, Alert and oriented to time, place, person, mood and affect Vital Signs Temp Pulse Resp BP Pulse Ox 97.4 F L 96 18 123/65 H 100 01/25/19 10:06 01/25/19 10:06 01/25/19 10:06 01/25/19 10:06 01/25/19 10:06 Oxygen Delivery Method Room Air Weight: 181 lb 3.52 oz Body Mass Index (BMI) 30.1 Finger Stick Blood Glucose 250 Intake and Output for Last 24 Hours 01/23/19 01/24/19 01/25/19 23:59 23:59 23:59 Intake Total 540 / 540 30 / 30 Output Total 0 / 0 Balance 540 / 540 30 / 30 Laboratory Tests Past 24 Hrs 01/25/19 01/25/19 01/25/19 05:05 05:05 10:45 WBC 9.4 RBC 4.11 L Hgb 13.1 Hct 39.6 MCV 96.4 MCH 31.9 MCHC 33.1 RDW Std Deviation 50.3 H RDW Coeff of Tegan 14.6 Plt Count 208 MPV 11.7 Immature Gran % (Auto) 0.500 Neut % (Auto) 83.8 H Lymph % (Auto) 7.2 L [place] % (Auto) 7.6 Eos % (Auto) 0.6 Baso % (Auto) 0.3 Absolute Neuts (auto) 7.9 H Absolute Lymphs (auto) 0.68 L Nucleated RBC % 0 PT 16.7 H INR 1.4 Sodium 137 Potassium 4.7 Chloride 93 L Carbon Dioxide 27.0 Anion Gap 17 H BUN 45 H Creatinine 7.41 H* Estim Creat Clear Calc 8.35 Est GFR (MDRD) Af Amer 8 L Est GFR (MDRD) Non-Af 6 L BUN/Creatinine Ratio 6.1 L Glucose 182 H Calcium 8.7 Total Bilirubin 1.40 H AST 64 H ALT 95 H Alkaline Phosphatase 1430 H Total Protein 7.3 Albumin 2.3 L Globulin 5.0 H Albumin/Globulin Ratio 0.5 L POC Glucose 01/25/19 01/24/19 01/24/19 06:58 22:57 16:24 POC Glucose 171 H 162 H 234 H 01/24/19 11:19 POC Glucose 260 H Medical Necessity - Tobacco Use Smoking Status: Former smoker Assessment/Plan All Active Problems (Last Updated 01/24/19 @ 13:27 by Daniella Donald MD) Ascites (Acute) 1. Ascites unclear etiology - ascites is progressing, as are her associated symptoms. Large ascites on CT 2 compartments possibly loculated. LFTs abnormal, GGT elevated, unclear why. Hepatitis panel pending. Also she missed hemodialysis Saturday. Dr. Cannon Consulted. Cannot have paracentesis until Saturday. Partial dialysis last night. BP was low during dialysis. Trend INR prior to paracentesis. LFTs improving. 2. ESRD - as above - continue per direction by Nephrology. 3. Dmt1 - SSI, lantus 4. Depression/Anx - venlafaxine, xanax. 5. RLS - mirapex DVT ppx: SCDs DC planning: paracentesis Saturday. This patient was seen by Alex Roberts PA-C under the supervision of Doctor Shabana. <Daniella Donald - Last Filed: 01/25/19 11:29> - Physical Exam Vital Signs Temp Pulse Resp BP Pulse Ox 97.4 F L 96 18 123/65 H 100 01/25/19 10:06 01/25/19 10:06 01/25/19 10:01/25/19 10:06 01/25/19 10:06 Oxygen Delivery Method Room Air Weight: 181 lb 3.52 oz Body Mass Index (BMI) 30.1 Finger Stick Blood Glucose 250 Intake and Output for Last 24 Hours 01/23/19 01/24/19 01/25/19 23:59 23:59 23:59 Intake Total 540 / 540 30 / 30 Output Total 0 / 0 Balance 540 / 540 30 / 30 Laboratory Tests Past 24 Hrs 01/25/19 01/25/19 01/25/19 05:05 05:05 10:45 WBC 9.4 RBC 4.11 L Hgb 13.1 Hct 39.6 MCV 96.4 MCH 31.9 MCHC 33.1 RDW Std Deviation 50.3 H RDW Coeff of Tegan 14.6 Plt Count 208 MPV 11.7 Immature Gran % (Auto) 0.500 Neut % (Auto) 83.8 H Lymph % (Auto) 7.2 L [place] % (Auto) 7.6 Eos % (Auto) 0.6 Baso % (Auto) 0.3 Absolute Neuts (auto) 7.9 H Absolute Lymphs (auto) 0.68 L Nucleated RBC % 0 PT 16.7 H INR 1.4 Sodium 137 Potassium 4.7 Chloride 93 L Carbon Dioxide 27.0 Anion Gap 17 H BUN 45 H Creatinine 7.41 H* Estim Creat Clear Calc 8.35 Est GFR (MDRD) Af Amer 8 L Est GFR (MDRD) Non-Af 6 L BUN/Creatinine Ratio 6.1 L Glucose 182 H Calcium 8.7 Total Bilirubin 1.40 H AST 64 H ALT 95 H Alkaline Phosphatase 1430 H Total Protein 7.3 Albumin 2.3 L Globulin 5.0 H Albumin/Globulin Ratio 0.5 L POC Glucose 01/25/19 01/24/19 01/24/19 06:58 22:57 16:24 POC Glucose 171 H 162 H 234 H 01/24/19 11:19 POC Glucose 260 H Assessment/Plan Hospitalist note: I am seeing this patient in conjunction with Alex Roberts. I independently seen and examined the patient. Progress note above and laboratory data reviewed and I concur with the above work-up and treatment plan. Today, patient complained of increasing abdominal pain and persistent nausea. She could not sleep last night because of persistent nausea. She reported mild shortness of breath as well but remained on room air. Her vital signs are stable. - Physical Exam General: Alert, Oriented x3, Cooperative, No apparent distress, about to fall asleep while talking to the patient. HEENT: Atraumatic, PERRLA, EOMI. Neck: Supple, No JVD, Negative Carotid Bruits, Trachea Midline, Thyroid Normal. Lungs: Diminished breath sounds bilateral, otherwise clear, No rhonchi, No wheeze, No rales. Cardiovascular: Regular rate, Regular Rhythm, Normal S1, Normal S2, PMI Normal. Abdomen: Soft, hypoactive bowel sounds, hugely distended, ascites, minimal tenderness tenderness, no guarding or rigidity. Extremities: No clubbing, No cyanosis, No edema Skin: No rashes, No breakdown Neurological: Cranial nerves are intact, neuro grossly intact Assessment and plan: #1 newly diagnosed ascites: Unclear etiology. Today, she complained of nausea, abdominal pain and decreased distention. This is likely because of use ascites compressing her intra-abdominal organs. She did not receive any IV pain medications or IV antiemetics because of difficult IV access. She denies history of CHF, liver disease or drinking alcohol. It could be due to ESRD or hepatorenal syndrome. She does have a history of end-stage renal disease and she is on hemodialysis. Her LFTs are abnormal. On the CT scan abdomen, liver size looks normal but no comment on the liver size on the official report but no concerning lesions. Her bilirubin, liver transaminases, alkaline phosphatase and GGT are elevated and they have been elevated in the past as well. Ammonia level is normal. Lipase was normal. Her pro time is 16 and INR was 1.4. Probable early hepatic failure is possible. Plan for diagnostic and therapeutic paracentesis tomorrow. We will try to get peripheral IV access, start IV pain medications and IV antiemetics. #2 elevated LFT: Unclear etiology. All bilirubin, GGT, liver transaminases and alkaline phosphatase are elevated and they were elevated in the past as well. Liver size on the CAT scan looked normal. Patient denied drinking alcohol. Plan for diagnostic paracentesis as above. #3 ESRD: On hemodialysis, she missed her dialysis yesterday because she felt sick. She goes on dialysis on Mondays, Wednesdays and Fridays. Today's potassium is 4.7, improved. 1 dose of Kayexalate given yesterday. Nephrology consulted. #4 other chronic medical problems: Stable, continue current medication as above. This note was generated with [employer] dictation software. It may contain incorrect words, spelling, and punctuation that were not noted in checking the note before signing. Code Visit Inpatient E&M: 97959 Subs Hosp L2
[2019-01-25] MEDS: Morphine 2 MG/ML Syringe IV ×3 (11:20→20:43)
[2019-01-25] MEDS: Ondansetron 4 MG/2 ML Vial IV (11:20)
[2019-01-25] MEDS: 0.9% NaCl Peripheral Flush Adult/Peds IV ×2 (11:23→20:43)
[2019-01-25 11:40] LABS: Bedside Glucose 205 mg/dL (70-110)
[2019-01-25 16:45] LABS: Bedside Glucose 198 mg/dL (70-110)
--- NOTE | 2019-01-25 16:46 | PCM.CONS.R ---
Problem List (1) End stage renal disease on dialysis Status: Chronic Consultation - Renal 01/25/19 PCP/ Referring MD: Requesting physician: ESRD Primary care physician: Elijah Curtis MD Reason for Consultation:: esrd - History of Present Illness History of Present Illness: The patient is a 48 year old F well-known to us. Known history of ESRD on hemodialysis 3 times a week schedule. Admitted to the hospital with nausea, vomiting, abdominal distention. Found to have significant ascites. Scheduled for a ascitic tap tomorrow. I actually saw her on dialysis last week. Clinically she looks significantly worse today compared to last week. Did get dialysis yesterday. - Allergies Allergies: Allergies Penicillins [PCN] Allergy (Verified 01/23/19 18:12) Hives - Current Medications Current Medications: Current Medications Acetaminophen (Tylenol) 650 mg PO Q6H PRN PRN PRN Reason: PAIN Albuterol Sulfate (Ventolin Aerosols) 2.5 mg INHALATION Q2H PRN PRN PRN Reason: sob/wheezing Allopurinol (Zyloprim) 200 mg PO DAILYCM [facility] [place] Last Admin: 01/25/19 10:10 Dose: Not Given Documented by: Alprazolam (Xanax) 0.5 mg PO TID PRN PRN PRN Reason: ANXIETY Dextrose (D50w Syringe) 0 gm IV X1 PRN; Protocol PRN Reason: Hypoglycemia Ergocalciferol (Vitamin D) 50,000 unit PO MO [place] Fluticasone Propionate (Flonase Nasal [place]) 1 spray NASAL DAILY PRN PRN PRN Reason: ALLERGIES Gabapentin (Neurontin) 300 mg PO QHS [facility] [place] Last Admin: 01/24/19 22:55 Dose: 300 mg Documented by: Glucagon () 1 mg IM .X1 PRN PRN Reason: Hypoglycemia Sodium Chloride () 250 mls @ 15 mls/hr IV .[id number] PRN PRN Reason: SALINE FLUSH Insulin Glargine (Lantus (Bkc)) 5 units SC DAILY [facility] [place] Last Admin: 01/25/19 10:10 Dose: Not Given Documented by: Insulin Human Lispro (Humalog Kwikpen (Bkc)) 0 unit SC ACHS [facility] [place]; Protocol Last Admin: 01/25/19 16:17 Dose: Not Given Documented by: Latanoprost (Xalatan Opthalmic) 1 drop EACH EYE QHS [facility] [place] Last Admin: 01/24/19 22:55 Dose: 1 drop Documented by: Lidocaine (Lidoderm Patch) 1 patch TOPICAL DAILY [facility] [place] [place]; Protocol Last Admin: 01/25/19 10:12 Dose: 1 patch Documented by: Morphine Sulfate () 2 mg IV Q3H PRN PRN PRN Reason: Severe Pain (7-10/10) Last Admin: 01/25/19 16:03 Dose: 2 mg Documented by: Ondansetron HCl (Zofran) 4 mg IV Q8H PRN PRN PRN Reason: NAUSEA/VOMITING Last Admin: 01/25/19 11:20 Dose: 4 mg Documented by: Ondansetron HCl (Zofran) 8 mg PO Q8H PRN PRN PRN Reason: NAUSEA/VOMITING Last Admin: 01/24/19 21:57 Dose: 8 mg Documented by: Oxycodone HCl (Oxyir) 5 - 10 mg PO Q6H PRN PRN PRN Reason: SEVERE PAIN (6-10/10) Last Admin: 01/24/19 22:55 Dose: 10 mg Documented by: Pramipexole Dihydrochloride (Mirapex) 0.25 mg PO QHS [facility] [place] Last Admin: 01/24/19 22:55 Dose: 0.25 mg Documented by: Prochlorperazine Edisylate (Compazine Iv) 5 mg IV Q6H PRN PRN PRN Reason: NAUSEA/VOMITING Last Admin: 01/24/19 06:58 Dose: 5 mg Documented by: Sevelamer Carbonate (Renvela) 800 mg PO TIDCM [facility] [place] Last Admin: 01/25/19 16:18 Dose: Not Given Documented by: Sodium Chloride () 10 - 40 ml IV UD PRN PRN Reason: SALINE FLUSH Last Admin: 01/25/19 11:23 Dose: 20 ml Documented by: Venlafaxine HCl 150 mg/ (Venlafaxine HCl 37.5 mg) 187.5 mg PO DAILY [facility] Last Admin: 01/25/19 10:10 Dose: Not Given Documented by: - Past Medical History Past Medical History (Chronic Problems): Chronic Problems (Last Updated 01/24/19 @ 13:27 by Daniella Donald MD) Abnormal LFTs (Chronic) End stage renal disease on dialysis (Chronic) Polyclonal gammopathy (Chronic) PAF (paroxysmal atrial fibrillation) (Chronic) Glaucoma (Chronic) Depression (Chronic) Hyperuricemia (Chronic) Hypertension (Chronic) DM type 1 (diabetes mellitus, type 1) (Chronic) Anemia (Chronic) - Past Surgical History Surgical History: cholecystectomy, hysterectomy, tonsillectomy, - - PD catheter placement, tunneled dialysis catheter placement, AVF 06/08/17. - Social History Smoking Status: Former smoker Alcohol: None - Family History Maternal History Items: Cancer - Thyroid cancer and lung cancer, Diabetes, Heart Disease Paternal History Items: Diabetes, Heart Disease Review of Systems Constitutional: Denies: Chills, Fever, Weight Change HEENT: Denies: Head Aches, Sinus Congestion, Sinus Drainage Cardiovascular: Denies: Chest Pain, Palpitations Respiratory: Denies: Cough, Shortness of breath at rest, Sputum production Gastrointestinal: Reports: Abdominal Pain, Vomiting. Denies: Nausea Genitourinary: Denies: Dysuria Musculoskeletal: Denies: Joint Pain, Joint Tenderness Skin: Denies: Rash, Wounds Neurological: Denies: Numbness, Tingling, Focal weakness Psychiatric: Denies: Anxiety, Depression, Homicidal Ideations, Suicidal Ideations Hematologic/ Lymphatic: Denies: Easy Bruising, Easy Bleeding Patient Problems: Active and Suspected Problems (Last Updated 01/24/19 @ 13:27 by Daniella Donald MD) Ascites (Acute) - Physical Exam General: Alert, Oriented x3, Cooperative HEENT: Atraumatic, PERRLA, EOMI, Normocephalic Neck: Supple, No JVD, Negative Carotid Bruits Lungs: Clear to auscultation, Normal air movement Cardiovascular: Regular rate, No murmurs Abdomen: Distended Extremities: No edema, Capillary Refill Less than 3 Seconds Skin: No rashes, No breakdown Musculoskeletal: No Tenderness to Palpation of Joints or Extremities Neurological: Cranial nerves II-XII grossly intact Psych/Mental Status: Normal Affect, Appropriate Vital Signs Temp Pulse Resp BP Pulse Ox 97.8 F 98 14 107/66 99 01/25/19 15:55 01/25/19 15:55 01/25/19 15:55 01/25/19 15:55 01/25/19 15:55 Oxygen Delivery Method Room Air Weight: 82.2 kg Body Mass Index (BMI) 30.1 Finger Stick Blood Glucose 250 Intake and Output for Last 24 Hours 01/23/19 01/24/19 01/25/19 23:59 23:59 23:59 Intake Total 540 / 540 30 / 30 Output Total 0 / 0 0 / 0 Balance 540 / 540 30 / Laboratory Tests Past 24 Hrs 01/25/19 01/25/19 01/25/19 05:05 05:05 10:45 WBC 9.4 RBC 4.11 L Hgb 13.1 Hct 39.6 MCV 96.4 MCH 31.9 MCHC 33.1 RDW Std Deviation 50.3 H RDW Coeff of Tegan 14.6 Plt Count 208 MPV 11.7 Immature Gran % (Auto) 0.500 Neut % (Auto) 83.8 H Lymph % (Auto) 7.2 L [place] % (Auto) 7.6 Eos % (Auto) 0.6 Baso % (Auto) 0.3 Absolute Neuts (auto) 7.9 H Absolute Lymphs (auto) 0.68 L Nucleated RBC % 0 PT 16.7 H INR 1.4 Sodium 137 Potassium 4.7 Chloride 93 L Carbon Dioxide 27.0 Anion Gap 17 H BUN 45 H Creatinine 7.41 H* Estim Creat Clear Calc 8.35 Est GFR (MDRD) Af Amer 8 L Est GFR (MDRD) Non-Af 6 L BUN/Creatinine Ratio 6.1 L Glucose 182 H Calcium 8.7 Total Bilirubin 1.40 H AST 64 H ALT 95 H Alkaline Phosphatase 1430 H Total Protein 7.3 Albumin 2.3 L Globulin 5.0 H Albumin/Globulin Ratio 0.5 L POC Glucose 01/25/19 01/25/19 01/25/19 16:13 11:33 06:58 POC Glucose 198 H 205 H 171 H 01/24/19 22:57 POC Glucose 162 H Assessment/Plan All Active Problems (Last Updated 01/24/19 @ 13:27 by Daniella Donald MD) Ascites (Acute) ESRD. Hemodialysis tomorrow Hyperkalemia. Improved. Ascites. For ascitic tap tomorrow
[2019-01-25] MEDS: Latanoprost 0.005% 1 Bottle 1 DRP EACH EYE (22:06)
[2019-01-25] MEDS: Gabapentin 300 MG Capsule PO (22:06)
[2019-01-25] MEDS: Pramipexole Di-HCl 0.25 MG Tablet PO (22:06)
[2019-01-25 22:55] LABS: Bedside Glucose 238 mg/dL (70-110)
[2019-01-26] VITALS (13 sets, daily range): BP systolic 85–118; BP diastolic 41–61; PULSE 77–97; RESP 16–18; TEMP 36.6–36.9; O2SAT 90–100
--- NOTE | 2019-01-26 | FLU_PTH ---
PATIENT: KATIUSKA FRAIRE LOC: PCU U#:[id number] AGE/SX: 48/F ROOM: [facility] RE01/23/[address]: Dr. Ariane Manuel MD : 1970 BED: 1 DIS: 01/28/2019 SPEC #: [id number] RECD: 01/26/19 10:23 STATUS: LASHON RECarmelo #: [id number] SOWMYA: 01/26/19 00:[address]: Ariane Manuel DEPT: CYTOLOGY RECD BY: Vinh Valles ENTERED: 01/26/19 11:00 SP TYPE: Fluid OTHR DR: MD Dr. Nia Monahan MD Dr. Timothy Miller, MD Tissues: PARACENTESIS FLUID Procedures: Special Stain Group II Surgery Specimen Level IV Cytospin Fluid HEADER OPERATION: Ultrasound guided right paracentesis PRE-OP DIAGNOSIS: Ascites TISSUE SUBMITTED: Paracentesis fluid for cytology DIAGNOSIS CYTOLOGY Paracentesis fluid for cytology (cytospin and cell block): Negative for malignant cells. AM:donta 01/27/19 CYTOLOGY STUDY Slides are reviewed. CYTOLOGY GROSS Received is 9 ml of brown cloudy fluid labeled with the patient's name and and designated per the requisition as paracentesis. Submitted for cytology preparation including cell block. / CC:cc 01/26/19 TC:5 CPT: 27631, 95817
[2019-01-26 05:45] LABS: Absolute Lymphocyte Count 0.87 X10^3/uL (0.83-4.51); Absolute Neutrophil Count 9.7 X10^3/uL (2.0-7.7); Basophil# 0.03 X10^3/uL; Basophil% 0.3 % (0-1); Eosinophil# 0.08 X10^3/uL; Eosinophils% 0.7 % (0-5); Hematocrit 37.5 % (37-47); Hemoglobin 11.9 g/dL (12.0-15.0); Lymphocyte # 0.87 X10^3/ul (4.0); Lymphocyte % 7.5 % (19-41); Mean Corp Hgb Conc 31.7 g/dL (32-36); Mean Corpuscular Hgb 32.2 pg (27.0-32.0); Mean Corpuscular Volume 101.4 fL (81-99); Mean Platelet Vol. 11.4 fl (6.2-12.0); Monocyte# 0.76 X10^3/uL; Monocyte% 6.6 % (0-10); NRBC Flagged by Analyzer 0.3 % (0-5); Neutrophil # 9.73 X10^3/uL (2.7-7.7); Neutrophil % 84.2 % (47-70); Platelet Count 205 K/mm3 (150-450); RBC Distribution Width CV 14.7 % (11.6-14.6); RBC Distribution Width SD 54.6 fl (35.1-43.9); White Blood Count 11.6 K/mm3 (4.4-11.0)
[2019-01-26 05:54] LABS: International Normalized Ratio 1.5; Prothrombin Time (Protime)PT. 17.8 SECONDS (11.7-14.9)
[2019-01-26 05:55] LABS: Partial Thromboplast Time 45.8 Seconds (24.1-36.2)
[2019-01-26 06:33] LABS: ALB/GLOB Ratio 0.4 RATIO (0.9-2.4); AST(SGOT) 28 U/L (15-37); Alanine Aminotransfer ALT/SGPT 64 U/L (13-56); Albumin, Serum 2.2 g/dL (3.2-5.0); Alkaline Phosphatase 1155 U/L (45-117); Anion Gap 23 (5-15); BUN 64 mg/dL (7-18); BUN/Creat Ratio 7.3 RATIO (10-20); Calcium,Total 9.1 mg/dL (8.5-10.1); Chloride 93 mmol/L (98-107); Creatinine, Serum 8.78 mg/dL (0.55-1.02); EST Glomerular Filtration Rate 5 mL/min (>60); Est Glom Filt Rate - Afr Amer 6 mL/min (>60); Estimated Creatinine Clearance 7.05 ml/min; Globulin 5.1 g/dL (2.2-4.2); Glucose 264 mg/dL (74-106); Potassium 5.4 mmol/L (3.5-5.1); Protein, Total 7.3 g/dL (6.4-8.2); Sodium Level 138 mmol/L (136-145)
[2019-01-26] MEDS: Insulin Lispro 100 UNIT/ML INSULN.PEN SC ×2 (06:49→21:47)
[2019-01-26 06:55] LABS: Bedside Glucose 265 mg/dL (70-110)
[2019-01-26] MEDS: oxyCODONE 5 MG Tablet PO ×2 (08:16→19:19)
[2019-01-26 10:27] LABS: Cytology, Body Fluid / CSF SEE PATHOLOGY REPORT
[2019-01-26 11:00] LABS: Body Fluid Mononuclear WBC # 0.118 10^3/uL; Body Fluid Mononuclear WBC % 4.8 %; Body Fluid Polynuclear WBC % 95.2 %; Body Fluid Total Cells Counted 2.459 10^3/ul (0.000-0.000); Red Cell Count/Body Fluid 0.067 10^6/ul; White Blood Count/Body Fluid 2.458 10^3/uL
[2019-01-26 11:06] LABS: Glucose, Body Fluid 196 mg/dL (40-70)
[2019-01-26 11:09] LABS: LDH,Body Fluid 534 Units/l (Not Establ.); Protein, Body Fluid 5.4 g/dL (Not Establ.)
[2019-01-26 11:20] LABS: Bedside Glucose 80 mg/dL (70-110)
[2019-01-26 11:33] LABS: Auto B Fluid Analyzer BKGD Ct COUNTS W/IN LIMITS (W/IN LIMITS); Source- Body Fluid OTHER
[2019-01-26 11:34] LABS: Appearance/Body Fluid TURBID; Color/Body Fluid YELLOW
--- NOTE | 2019-01-26 12:02 | PN.RENAL_ITS ---
Patient Problems: Active and Suspected Problems (Last Updated 01/24/19 @ 13:27 by Daniella Donald MD) Ascites (Acute) Subjective: Patient is feeling well this morning. She denied nausea vomiting or shortness of breath. Patient had paracentesis earlier today with 6 L of fluid removal - Physical Exam General: Alert, Oriented x3 HEENT: Atraumatic Oral: Moist Mucosa Neck: Supple, No JVD Lungs: Clear to auscultation, Normal air movement, No rhonchi Cardiovascular: Regular rate, Regular Rhythm, Normal S1, Normal S2 Abdomen: Non Tender, Distended Extremities: No clubbing, No cyanosis, Edema - +1 edema of lower extremity Skin: No rashes Musculoskeletal: No Tenderness to Palpation of Joints or Extremities, Muscle Wasting Neurological: Cranial nerves II-XII grossly intact, Neuro grossly intact Psych/Mental Status: Appropriate Vital Signs Temp Pulse Resp BP Pulse Ox 97.9 F 79 18 102/60 92 01/26/19 11:45 01/26/19 11:45 01/26/19 11:45 01/26/19 11:45 01/26/19 11:45 Oxygen Flow Rate (L/min) [9] 3 Oxygen Flow Rate (L/min) [8] 3 Oxygen Flow Rate (L/min) [7] 3 Oxygen Flow Rate (L/min) [6] 3 Oxygen Flow Rate (L/min) [5] 3 Oxygen Flow Rate (L/min) [4] 3 Oxygen Flow Rate (L/min) [3] 3 Oxygen Flow Rate (L/min) [2] 3 Oxygen Delivery Method [10] Room Air Oxygen Delivery Method [9] Nasal Cannula Oxygen Delivery Method [8] Nasal Cannula Oxygen Delivery Method [7] Nasal Cannula Oxygen Delivery Method [6] Nasal Cannula Oxygen Delivery Method [5] Nasal Cannula Oxygen Delivery Method [4] Nasal Cannula Oxygen Delivery Method [3] Nasal Cannula Oxygen Delivery Method [2] Nasal Cannula Oxygen Delivery Method [1 ( Room Air Initial Baseline)] Oxygen Delivery Method Room Air Weight: 82.2 kg Body Mass Index (BMI) 30.1 Finger Stick Blood Glucose 250 Intake and Output for Last 24 Hours 01/24/19 01/25/19 01/26/19 23:59 23:59 23:59 Intake Total 540 / 540 30 / 30 50 / 50 Output Total 0 / 0 0 / 0 6020 / 6020 Balance 540 / 540 30 / 30 -5970 / -5970 Microbiology Past 72 Hours 01/26/19 10:05 Gram Stain - Final Aspirate - Other Laboratory Tests Past 24 Hrs 01/26/19 01/26/19 01/26/19 05:15 05:15 05:15 WBC 11.6 H RBC 3.70 L Hgb 11.9 L Hct 37.5 MCV 101.4 H D MCH 32.2 H MCHC 31.7 L RDW Std Deviation 54.6 H RDW Coeff of Tegan 14.7 H Plt Count 205 MPV 11.4 Immature Gran % (Auto) 0.700 Neut % (Auto) 84.2 H Lymph % (Auto) 7.5 L [place] % (Auto) 6.6 Eos % (Auto) 0.7 Baso % (Auto) 0.3 Absolute Neuts (auto) 9.7 H Absolute Lymphs (auto) 0.87 Nucleated RBC % 0.3 PT 17.8 H INR 1.5 APTT 45.8 H Sodium Potassium Chloride Carbon Dioxide Anion Gap BUN Creatinine Estim Creat Clear Calc Est GFR (MDRD) Af Amer Est GFR (MDRD) Non-Af BUN/Creatinine Ratio Glucose Calcium Total Bilirubin AST ALT Alkaline Phosphatase Total Protein Albumin Globulin Albumin/Globulin Ratio Fluid Source Fluid Color Fluid Appearance Fluid WBC Fluid RBC Fluid Tot Cell Count Fld Polynuclear WBCs # Fld Polynuclear WBCs % Fluid Mononuclear WBCs Fld Mononuclear WBCs % Fl Pathologist Comment Fluid Glucose Fluid Total Protein Fluid LDH Fluid Comment 2 Hepatitis A IgM Ab Pending Hep Bs Antigen Pending Hep B Core IgM Ab Pending Hepatitis C Ab (EIA) Pending Miscellaneous Cytology Miscellaneous Test 01/26/19 01/26/19 01/26/19 05:15 10:05 10:05 WBC RBC Hgb Hct MCV MCH MCHC RDW Std Deviation RDW Coeff of Tegan Plt Count MPV Immature Gran % (Auto) Neut % (Auto) Lymph % (Auto) [place] % (Auto) Eos % (Auto) Baso % (Auto) Absolute Neuts (auto) Absolute Lymphs (auto) Nucleated RBC % PT INR APTT Sodium 138 Potassium 5.4 H Chloride 93 L Carbon Dioxide 22.0 Anion Gap 23 H BUN 64 H Creatinine 8.78 H* Estim Creat Clear Calc 7.05 Est GFR (MDRD) Af Amer 6 L Est GFR (MDRD) Non-Af 5 L BUN/Creatinine Ratio 7.3 L Glucose 264 H Calcium 9.1 Total Bilirubin 1.00 AST 28 ALT 64 H Alkaline Phosphatase 1155 H Total Protein 7.3 Albumin 2.2 L Globulin 5.1 H Albumin/Globulin Ratio 0.4 L Fluid Source Fluid Color Fluid Appearance Fluid WBC Fluid RBC Fluid Tot Cell Count Fld Polynuclear WBCs # Fld Polynuclear WBCs % Fluid Mononuclear WBCs Fld Mononuclear WBCs % Fl Pathologist Comment Fluid Glucose Fluid Total Protein 5.4 Fluid LDH 534 Fluid Comment 2 Hepatitis A IgM Ab Hep Bs Antigen Hep B Core IgM Ab Hepatitis C Ab (EIA) Miscellaneous Cytology Miscellaneous Test Pending 01/26/19 01/26/19 01/26/19 10:05 10:05 10:05 WBC RBC Hgb Hct MCV MCH MCHC RDW Std Deviation RDW Coeff of Tegan Plt Count MPV Immature Gran % (Auto) Neut % (Auto) Lymph % (Auto) [place] % (Auto) Eos % (Auto) Baso % (Auto) Absolute Neuts (auto) Absolute Lymphs (auto) Nucleated RBC % PT INR APTT Sodium Potassium Chloride Carbon Dioxide Anion Gap BUN Creatinine Estim Creat Clear Calc Est GFR (MDRD) Af Amer Est GFR (MDRD) Non-Af BUN/Creatinine Ratio Glucose Calcium Total Bilirubin AST ALT Alkaline Phosphatase Total Protein Albumin Globulin Albumin/Globulin Ratio Fluid Source OTHER Fluid Color YELLOW Fluid Appearance TURBID Fluid WBC 2.458 Fluid RBC 0.067 Fluid Tot Cell Count 2.459 H Fld Polynuclear WBCs # 2.340 Fld Polynuclear WBCs % 95.2 Fluid Mononuclear WBCs 0.118 Fld Mononuclear WBCs % 4.8 Fl Pathologist Comment May follow Fluid Glucose 196 H Fluid Total Protein Fluid LDH Fluid Comment 2 Pending Hepatitis A IgM Ab Hep Bs Antigen Hep B Core IgM Ab Hepatitis C Ab (EIA) Miscellaneous Cytology Pending Miscellaneous Test POC Glucose 01/26/19 01/26/19 01/25/19 11:13 06:38 22:04 POC Glucose 80 265 H 238 H 01/25/19 16:13 POC Glucose 198 H Medical Necessity - Tobacco Use Smoking Status: Former smoker Assessment/Plan All Active Problems (Last Updated 01/24/19 @ 13:27 by Daniella Donald MD) Ascites (Acute) 1-end-stage renal disease on Saturday hemodialysis schedule. Patient goes to [facility]. 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 Last hemodialysis session was last Saturday. Hemodialysis session is arranged for today. Please see order. Hemodialysis access is left upper extremity AV fistula. 2-anemia: Hemoglobin more than 11. No need for KEM. 3-bone mineral disease. Patient is on sevelamer. Will check phosphorus level. Patient has elevated alk phos. we will check PTH and SPEP. 4-hypotension: Patient's blood pressure is relatively low. We will start the patient Midodrine 10 mg 3 times daily to help removing fluid. 5-ascites. New onset. Unclear etiology. Could be from end-stage renal disease and inability to remove fluid due to relatively low blood pressure. We will start Midodrine to help removing fluid and maintaining good blood pressure. Thank you for allowing me to participate in Ms. Galdamez's care. Please call if any question concern at [phone]. Plan of care was discussed with nurse practitioner Alex Roberts. NANNETTE DURHAM MD
[2019-01-26 12:06] LABS: Lymphocytes 5 %; Monocytes 4 %; Neutrophil (Segs) 91 %
[2019-01-26 12:07] LABS: Body Fluid QC Type(s) BF1Q
--- NOTE | 2019-01-26 13:16 | PCM.PROGNOTE ---
<Alex Roberts - Last Filed: 01/26/19 13:16> Patient Problems: Active and Suspected Problems (Last Updated 01/24/19 @ 13:27 by Daniella Donald MD) Ascites (Acute) Subjective: Pt has improvement in nausea and abdominal pain since 6 L paracentesis this AM. No hypotension, no dizziness/LH, or SOB. No fever or chills. - Physical Exam General: Alert, Oriented x3, Cooperative HEENT: Atraumatic, PERRLA, EOMI, Normocephalic Neck: Supple, No JVD, Negative Carotid Bruits Lungs: Clear to auscultation, Normal air movement Cardiovascular: Regular rate, No murmurs Abdomen: Bowel Sounds Present, Soft, Non Tender, Distended, - - + fluid wave shift. Extremities: No edema, Capillary Refill Less than 3 Seconds Skin: No rashes, No breakdown Musculoskeletal: No Tenderness to Palpation of Joints or Extremities Neurological: Cranial nerves II-XII grossly intact Psych/Mental Status: Normal Affect, Appropriate, Alert and oriented to time, place, person, mood and affect Vital Signs Temp Pulse Resp BP Pulse Ox 97.8 F 77 18 105/54 L 94 01/26/19 12:00 01/26/19 12:00 01/26/19 12:00 01/26/19 12:00 01/26/19 12:00 Oxygen Flow Rate (L/min) [9] 3 Oxygen Flow Rate (L/min) [8] 3 Oxygen Flow Rate (L/min) [7] 3 Oxygen Flow Rate (L/min) [6] 3 Oxygen Flow Rate (L/min) [5] 3 Oxygen Flow Rate (L/min) [4] 3 Oxygen Flow Rate (L/min) [3] 3 Oxygen Flow Rate (L/min) [2] 3 Oxygen Delivery Method [10] Room Air Oxygen Delivery Method [9] Nasal Cannula Oxygen Delivery Method [8] Nasal Cannula Oxygen Delivery Method [7] Nasal Cannula Oxygen Delivery Method [6] Nasal Cannula Oxygen Delivery Method [5] Nasal Cannula Oxygen Delivery Method [4] Nasal Cannula Oxygen Delivery Method [3] Nasal Cannula Oxygen Delivery Method [2] Nasal Cannula Oxygen Delivery Method [1 ( Room Air Initial Baseline)] Oxygen Delivery Method Room Air Weight: 181 lb 3.52 oz Body Mass Index (BMI) 30.1 Finger Stick Blood Glucose 250 Intake and Output for Last 24 Hours 01/24/19 01/25/19 01/26/19 23:59 23:59 23:59 Intake Total 540 / 540 30 / 30 50 / 50 Output Total 0 / 0 0 / 0 6020 / 6020 Balance 540 / 540 30 / 30 -5970 / -5970 Microbiology Past 72 Hours 01/26/19 10:05 Gram Stain - Final Aspirate - Other Laboratory Tests Past 24 Hrs 01/26/19 01/26/19 01/26/19 05:15 05:15 05:15 WBC 11.6 H RBC 3.70 L Hgb 11.9 L Hct 37.5 MCV 101.4 H D MCH 32.2 H MCHC 31.7 L RDW Std Deviation 54.6 H RDW Coeff of Tegan 14.7 H Plt Count 205 MPV 11.4 Immature Gran % (Auto) 0.700 Neut % (Auto) 84.2 H Lymph % (Auto) 7.5 L Cowley % (Auto) 6.6 Eos % (Auto) 0.7 Baso % (Auto) 0.3 Absolute Neuts (auto) 9.7 H Absolute Lymphs (auto) 0.87 Nucleated RBC % 0.3 PT 17.8 H INR 1.5 APTT 45.8 H Sodium Potassium Chloride Carbon Dioxide Anion Gap BUN Creatinine Estim Creat Clear Calc Est GFR (MDRD) Af Amer Est GFR (MDRD) Non-Af BUN/Creatinine Ratio Glucose Calcium Total Bilirubin AST ALT Alkaline Phosphatase Total Protein Albumin Globulin Albumin/Globulin Ratio Fluid Source Fluid Color Fluid Appearance Fluid WBC Fluid RBC Fluid Tot Cell Count Fld Polynuclear WBCs # Fld Polynuclear WBCs % Fluid Mononuclear WBCs Fld Mononuclear WBCs % Fluid Neutrophils Fluid Lymphocytes Fluid Monocytes Fl Pathologist Comment Fluid Glucose Fluid Total Protein Fluid LDH Fluid Comment 2 Hepatitis A IgM Ab Pending Hep Bs Antigen Pending Hep B Core IgM Ab Pending Hepatitis C Ab (EIA) Pending Miscellaneous Cytology Miscellaneous Test 01/26/19 01/26/19 01/26/19 05:15 10:05 10:05 WBC RBC Hgb Hct MCV MCH MCHC RDW Std Deviation RDW Coeff of Tegan Plt Count MPV Immature Gran % (Auto) Neut % (Auto) Lymph % (Auto) Cowley % (Auto) Eos % (Auto) Baso % (Auto) Absolute Neuts (auto) Absolute Lymphs (auto) Nucleated RBC % PT INR APTT Sodium 138 Potassium 5.4 H Chloride 93 L Carbon Dioxide 22.0 Anion Gap 23 H BUN 64 H Creatinine 8.78 H* Estim Creat Clear Calc 7.05 Est GFR (MDRD) Af Amer 6 L Est GFR (MDRD) Non-Af 5 L BUN/Creatinine Ratio 7.3 L Glucose 264 H Calcium 9.1 Total Bilirubin 1.00 AST 28 ALT 64 H Alkaline Phosphatase 1155 H Total Protein 7.3 Albumin 2.2 L Globulin 5.1 H Albumin/Globulin Ratio 0.4 L Fluid Source Fluid Color Fluid Appearance Fluid WBC Fluid RBC Fluid Tot Cell Count Fld Polynuclear WBCs # Fld Polynuclear WBCs % Fluid Mononuclear WBCs Fld Mononuclear WBCs % Fluid Neutrophils Fluid Lymphocytes Fluid Monocytes Fl Pathologist Comment Fluid Glucose Fluid Total Protein 5.4 Fluid LDH 534 Fluid Comment 2 Hepatitis A IgM Ab Hep Bs Antigen Hep B Core IgM Ab Hepatitis C Ab (EIA) Miscellaneous Cytology Miscellaneous Test Pending 01/26/19 01/26/19 01/26/19 10:05 10:05 10:05 WBC RBC Hgb Hct MCV MCH MCHC RDW Std Deviation RDW Coeff of Tegan Plt Count MPV Immature Gran % (Auto) Neut % (Auto) Lymph % (Auto) Cowley % (Auto) Eos % (Auto) Baso % (Auto) Absolute Neuts (auto) Absolute Lymphs (auto) Nucleated RBC % PT INR APTT Sodium Potassium Chloride Carbon Dioxide Anion Gap BUN Creatinine Estim Creat Clear Calc Est GFR (MDRD) Af Amer Est GFR (MDRD) Non-Af BUN/Creatinine Ratio Glucose Calcium Total Bilirubin AST ALT Alkaline Phosphatase Total Protein Albumin Globulin Albumin/Globulin Ratio Fluid Source OTHER Fluid Color YELLOW Fluid Appearance TURBID Fluid WBC 2.458 Fluid RBC 0.067 Fluid Tot Cell Count 2.459 H Fld Polynuclear WBCs # 2.340 Fld Polynuclear WBCs % 95.2 Fluid Mononuclear WBCs 0.118 Fld Mononuclear WBCs % 4.8 Fluid Neutrophils 91 Fluid Lymphocytes 5 Fluid Monocytes 4 Fl Pathologist Comment May follow Fluid Glucose 196 H Fluid Total Protein Fluid LDH Fluid Comment 2 SEE COMMENT Hepatitis A IgM Ab Hep Bs Antigen Hep B Core IgM Ab Hepatitis C Ab (EIA) Miscellaneous Cytology Pending Miscellaneous Test POC Glucose 01/26/19 01/26/19 01/25/19 11:13 06:38 22:04 POC Glucose 80 265 H 238 H 01/25/19 16:13 POC Glucose 198 H Medical Necessity - Tobacco Use Smoking Status: Former smoker Assessment/Plan All Active Problems (Last Updated 01/24/19 @ 13:27 by Daniella Donald MD) Ascites (Acute) 1. Ascites unclear etiology - 6L paracentesis, brown fluid. Labs sent. Symptoms improved since. She still has significant ascies. -DCd venlafaxine as it is hepatotoxic -Check PTH -check serum electrophoresis -Corrected calcium mildly elevated at 10.5 (normal 10.1) -Check Phos. -alk phos may be elevated to bone degredation. -hepatitis panel pending. -she has not used any tylenol and has no hx of alcohol use. -differential: CHOW, hepatorenal syndrome, drug induced hepatotoxicity 2. ESRD - as above - continue per direction by Nephrology. 3. Dmt1 - SSI, lantus 4. Depression/Anx - venlafaxine (STOP), xanax. 5. RLS - mirapex DVT ppx: SCDs DC planning: reassess in AM. This patient was seen by Alex Roberts PA-C under the supervision of Doctor Kaleb <Ariane Manuel - Last Filed: 01/26/19 15:13> - Physical Exam Vital Signs Temp Pulse Resp BP Pulse Ox 97.8 F 77 18 105/54 L 94 01/26/19 12:00 01/26/19 12:00 01/26/19 12:00 01/26/19 12:00 01/26/19 12:00 Oxygen Flow Rate (L/min) [9] 3 Oxygen Flow Rate (L/min) [8] 3 Oxygen Flow Rate (L/min) [7] 3 Oxygen Flow Rate (L/min) [6] 3 Oxygen Flow Rate (L/min) [5] 3 Oxygen Flow Rate (L/min) [4] 3 Oxygen Flow Rate (L/min) [3] 3 Oxygen Flow Rate (L/min) [2] 3 Oxygen Delivery Method [10] Room Air Oxygen Delivery Method [9] Nasal Cannula Oxygen Delivery Method [8] Nasal Cannula Oxygen Delivery Method [7] Nasal Cannula Oxygen Delivery Method [6] Nasal Cannula Oxygen Delivery Method [5] Nasal Cannula Oxygen Delivery Method [4] Nasal Cannula Oxygen Delivery Method [3] Nasal Cannula Oxygen Delivery Method [2] Nasal Cannula Oxygen Delivery Method [1 ( Room Air Initial Baseline)] Oxygen Delivery Method Room Air Weight: 181 lb 3.52 oz Body Mass Index (BMI) 30.1 Finger Stick Blood Glucose 250 Intake and Output for Last 24 Hours 01/24/19 01/25/19 01/26/19 23:59 23:59 23:59 Intake Total 540 / 540 30 / 30 50 / 50 Output Total 0 / 0 0 / 0 6020 / 6020 Balance 540 / 540 30 / 30 -5970 / -5970 Microbiology Past 72 Hours 01/26/19 10:05 Gram Stain - Final Aspirate - Other Laboratory Tests Past 24 Hrs 01/26/19 01/26/19 01/26/19 05:15 05:15 05:15 WBC 11.6 H RBC 3.70 L Hgb 11.9 L Hct 37.5 MCV 101.4 H D MCH 32.2 H MCHC 31.7 L RDW Std Deviation 54.6 H RDW Coeff of Tegan 14.7 H Plt Count 205 MPV 11.4 Immature Gran % (Auto) 0.700 Neut % (Auto) 84.2 H Lymph % (Auto) 7.5 L Cowley % (Auto) 6.6 Eos % (Auto) 0.7 Baso % (Auto) 0.3 Absolute Neuts (auto) 9.7 H Absolute Lymphs (auto) 0.87 Nucleated RBC % 0.3 PT 17.8 H INR 1.5 APTT 45.8 H Sodium Potassium Chloride Carbon Dioxide Anion Gap BUN Creatinine Estim Creat Clear Calc Est GFR (MDRD) Af Amer Est GFR (MDRD) Non-Af BUN/Creatinine Ratio Glucose Calcium Total Bilirubin AST ALT Alkaline Phosphatase Total Protein Albumin Globulin Albumin/Globulin Ratio Fluid Source Fluid Color Fluid Appearance Fluid WBC Fluid RBC Fluid Tot Cell Count Fld Polynuclear WBCs # Fld Polynuclear WBCs % Fluid Mononuclear WBCs Fld Mononuclear WBCs % Fluid Neutrophils Fluid Lymphocytes Fluid Monocytes Fl Pathologist Comment Fluid Glucose Fluid Total Protein Fluid LDH Fluid Comment 2 Hepatitis A IgM Ab Pending Hep Bs Antigen Pending Hep B Core IgM Ab Pending Hepatitis C Ab (EIA) Pending Miscellaneous Cytology Miscellaneous Test 01/26/19 01/26/19 01/26/19 05:15 10:05 10:05 WBC RBC Hgb Hct MCV MCH MCHC RDW Std Deviation RDW Coeff of Tegan Plt Count MPV Immature Gran % (Auto) Neut % (Auto) Lymph % (Auto) Cowley % (Auto) Eos % (Auto) Baso % (Auto) Absolute Neuts (auto) Absolute Lymphs (auto) Nucleated RBC % PT INR APTT Sodium 138 Potassium 5.4 H Chloride 93 L Carbon Dioxide 22.0 Anion Gap 23 H BUN 64 H Creatinine 8.78 H* Estim Creat Clear Calc 7.05 Est GFR (MDRD) Af Amer 6 L Est GFR (MDRD) Non-Af 5 L BUN/Creatinine Ratio 7.3 L Glucose 264 H Calcium 9.1 Total Bilirubin 1.00 AST 28 ALT 64 H Alkaline Phosphatase 1155 H Total Protein 7.3 Albumin 2.2 L Globulin 5.1 H Albumin/Globulin Ratio 0.4 L Fluid Source Fluid Color Fluid Appearance Fluid WBC Fluid RBC Fluid Tot Cell Count Fld Polynuclear WBCs # Fld Polynuclear WBCs % Fluid Mononuclear WBCs Fld Mononuclear WBCs % Fluid Neutrophils Fluid Lymphocytes Fluid Monocytes Fl Pathologist Comment Fluid Glucose Fluid Total Protein 5.4 Fluid LDH 534 Fluid Comment 2 Hepatitis A IgM Ab Hep Bs Antigen Hep B Core IgM Ab Hepatitis C Ab (EIA) Miscellaneous Cytology Miscellaneous Test Pending 01/26/19 01/26/19 01/26/19 10:05 10:05 10:05 WBC RBC Hgb Hct MCV MCH MCHC RDW Std Deviation RDW Coeff of Tegan Plt Count MPV Immature Gran % (Auto) Neut % (Auto) Lymph % (Auto) Cowley % (Auto) Eos % (Auto) Baso % (Auto) Absolute Neuts (auto) Absolute Lymphs (auto) Nucleated RBC % PT INR APTT Sodium Potassium Chloride Carbon Dioxide Anion Gap BUN Creatinine Estim Creat Clear Calc Est GFR (MDRD) Af Amer Est GFR (MDRD) Non-Af BUN/Creatinine Ratio Glucose Calcium Total Bilirubin AST ALT Alkaline Phosphatase Total Protein Albumin Globulin Albumin/Globulin Ratio Fluid Source OTHER Fluid Color YELLOW Fluid Appearance TURBID Fluid WBC 2.458 Fluid RBC 0.067 Fluid Tot Cell Count 2.459 H Fld Polynuclear WBCs # 2.340 Fld Polynuclear WBCs % 95.2 Fluid Mononuclear WBCs 0.118 Fld Mononuclear WBCs % 4.8 Fluid Neutrophils 91 Fluid Lymphocytes 5 Fluid Monocytes 4 Fl Pathologist Comment May follow Fluid Glucose 196 H Fluid Total Protein Fluid LDH Fluid Comment 2 SEE COMMENT Hepatitis A IgM Ab Hep Bs Antigen Hep B Core IgM Ab Hepatitis C Ab (EIA) Miscellaneous Cytology Pending Miscellaneous Test POC Glucose 01/26/19 01/26/19 01/26/19 13:52 13:24 11:13 POC Glucose 141 H 43 L* 80 01/26/19 01/25/19 01/25/19 06:38 22:04 16:13 POC Glucose 265 H 238 H 198 H Assessment/Plan Patient seen by Alex Roberts PA-C under my supervision Patient is a 48 y/o female admitted with a complaint of abdominal pain and sudden, worsening abdominal distension. She was found to have massive ascites which was loculated. Patient also noted to have elevated liver enzymes since 2017 which is gradually worsened. No clear cause of elevated liver enzymes has been elucidated. Patient seen and examined. She still complained of abdominal pain. She looked very frail.She denied any fever or chills, nausea or vomiting. Patient again denied ever having used any alcohol, and denies any history of liver problems in her family. She doesn't think her liver enzymes have ever been worked up. REview of systems otherwise negative. o/e: Vital Signs Height 5 ft 5 in Weight: 181 lb 3.52 oz Weight in Pounds 181.2 lbs Pulse Ox 94 Temperature 97.8 F Pulse Rate [10] 81 Pulse Rate [9] 81 Pulse Rate [8] 79 Pulse Rate [7] 79 Pulse Rate [6] 80 Pulse Rate [5] 81 Pulse Rate [4] 81 Pulse Rate [3] 81 Pulse Rate [2] 82 Pulse Rate [1 (Initial 82 Baseline)] Pulse Rate 77 Respiratory Rate [10] 18 Respiratory Rate [9] 16 Respiratory Rate [8] 16 Respiratory Rate [7] 18 Respiratory Rate [6] 18 Respiratory Rate [5] 18 Respiratory Rate [4] 16 Respiratory Rate [3] 18 Respiratory Rate [2] 18 Respiratory Rate [1 (Initial 18 Baseline)] Respiratory Rate 18 Blood Pressure [10] 112/55 Blood Pressure [9] 107/60 Blood Pressure [8] 99/51 Blood Pressure [7] 88/43 Blood Pressure [6] 97/55 Blood Pressure [5] 88/55 Blood Pressure [4] 96/55 Blood Pressure [3] 100/55 Blood Pressure [2] 85/52 Blood Pressure [1 (Initial 89/52 Baseline)] Blood Pressure 105/54 Blood Pressure Position Semi-Fowlers General: Alert, Oriented x3, Cooperative, looks frail HEENT: Atraumatic, PERRLA, EOMI, Normocephalic Neck: Supple, No JVD, Negative Carotid Bruits Lungs: Clear to auscultation, Normal air movement Cardiovascular: Regular rate, No murmurs Abdomen: Bowel Sounds Present, massively distended abdomen, positive fluid thrill Extremities: No edema, Capillary Refill Less than 3 Seconds Skin: No rashes, No breakdown Musculoskeletal: No Tenderness to Palpation of Joints or Extremities Neurological: Cranial nerves II-XII grossly intact Psych/Mental Status: Normal Affect, Appropriate, Alert and oriented to time, place, person, mood and affect Patient is being managed for ascites of unknown etiology. She had paracentesis with drainage of 6L of turbid fluid today. Gram stain of fluid showed 3+ rbcs with 3+ red cell stroma, and no organisms seen. Fluid analysis showed total cell count of 2,459 cells, with 2340 polymorphonuclear cells, and 91% neutrophils and 5% lymphocytes. Fluid albumin is a send out test and is pending; will check SAAG after results are available. Fluid cytology is pending. O/a of elevated neutrophil count, will start IV levaquin (patient allergic to penicillins, so cannot give ceftriaxone); will give IV albumin 25gram once o/a of patient having 6L of fluid removed, to maintain hemodynamic status. Will consult general surgery for their input o/a of the elevated liver enzymes and ascites. Will consider getting a transvaginal USG based on ascitic fluid pathology results. Liver Hepatitis screen results are pending. Will get 2D echo to assess cardiac function. Nephrology consulted for hemodialysis. Rest of management as per Alex Roberts PA-C's note, which I have reviewed and endorsed. Code Visit Inpatient E&M: 08116 Subs Hosp L3
[2019-01-26] MEDS: Dextrose 50%-Water 25 GM/50 ML DISP.SYRIN IV (13:34)
[2019-01-26] MEDS: Midodrine HCl 5 MG Tablet 10 MG PO ×2 (13:41→21:49)
[2019-01-26 14:00] LABS: Bedside Glucose 43 mg/dL (70-110)
[2019-01-26 14:00] LABS: Bedside Glucose 141 mg/dL (70-110)
--- NOTE | 2019-01-26 14:20 | CASEMGMT ---
Patient has a Healthcare POA and Healthcare LW on file at [facility]. Her sister Mulu Patiño is her Healthcare POA. Jenelle MIRELES MSW
--- NOTE | 2019-01-26 14:27 | ECHOD_ITS ---
Reason For Study: DYSPNEA/SOB Procedure This was a 2D Doppler, Color Flow transthoracic echocardiogram. Exam performed portable in patient room. Left Ventricle Normal LV size. Left ventricular systolic function is normal. The estimated ejection fraction is 60 %. Stage 1 diastolic dysfunction. No regional wall motion abnormalities noted. Atria The left atrium is moderately enlarged. Normal right atrium. Mitral Valve There is moderate mitral annular calcification. Mild (1+) eccentric mitral valve insufficiency. Tricuspid Valve Normal tricuspid valve. Aortic Valve Trisinus/trileaflet aortic valve. Mild focal aortic valve calcification. Mild aortic stenosis. Pulmonic Valve Normal pulmonic valve. Great Vessels Normal aortic root. The pulmonary artery is normal size. Normal inferior vena cava. Pericardium/Pleural No pericardial effusion. MMode/2D Measurements & Calculations LVIDd: 4.4 cm IVSd: 0.99 cm LVOT diam: 2.0 cm LVIDs: 2.6 cm LVPWd: 0.96 cm LVOT area: 3.2 cm2 RVDd: 3.6 cm FS: 40.6 % LAV(MOD-bp): 87.2 ml LA A4 area: 26.5 cm2 LA dimension(2D): 4.2 cm LAV(MOD-bp) Indexed: 46.1 ml/m2 LAV(MOD-sp2): 78.7 ml LAV(MOD-sp4): 95.8 ml RA A4 area: 15.0 cm2 Time Measurements MV dec time: 0.38 sec Doppler Measurements & Calculations MV E max rico: 116.7 cm/sec Lat Peak E' Rico: 7.7 cm/sec Med Peak E' Rico: 5.2 cm/sec MV A max rico: 134.7 cm/sec E/E' lat: 15.2 E/E' med: 22.2 MV E/A: 0.87 Ao V2 max: 216.2 cm/sec LV V1 max: 117.0 cm/sec SV(LVOT): 67.6 ml Ao max P.7 mmHg LV V1 max P.5 mmHg Ao V2 mean: 166.2 cm/sec LV V1 mean P.6 mmHg Ao mean P.7 mmHg LV V1 mean: 93.0 cm/sec Ao V2 VTI: 37.8 cm LV V1 VTI: 21.1 cm MIRA(I,D): 1.8 cm2 MIRA(V,D): 1.7 cm2 PA V2 max: 138.6 cm/sec TR max rico: 283.3 cm/sec TR max P.1 mmHg Interpretation Summary Normal LV size. Left ventricular systolic function is normal. The estimated ejection fraction is 60 %. Stage 1 diastolic dysfunction. There is moderate mitral annular calcification. Mild (1+) eccentric mitral valve insufficiency. Ordering Physician: Ariane Manuel Referring Physician: Elijah Curtis Performed By: Lynette Delarosa, LUCÍA, RVT
[2019-01-26] MEDS: Albumin Human 25% (100 mL) 25 GM/100 ML BAG IV (15:52)
[2019-01-26 18:01] LABS: Bedside Glucose 110 mg/dL (70-110)
[2019-01-26] MEDS: 0.9% NaCl IVPB Med Flush (250 mL) 15 ML IV (18:25)
[2019-01-26] MEDS: 0.9% NaCl Peripheral Flush Adult/Peds IV (18:30)
[2019-01-26] MEDS: levoFLOXacin IV 750 MG/150 ML BAG 100 MG IV (18:30)
--- NOTE | 2019-01-26 18:45 | DIALYSIS ---
Hemodialysis x 4 hours complete. UF 2 liters fluid removal. Patient was lethargic prior to treatment and also the beginning of the treatment. With approximately 1.5 hours left in the treatment the patient was awake and alert. Pt tolerated treatment well, stable.
[2019-01-26] MEDS: Pramipexole Di-HCl 0.25 MG Tablet PO (21:49)
[2019-01-26] MEDS: Gabapentin 300 MG Capsule PO (21:50)
[2019-01-26] MEDS: Latanoprost 0.005% 1 Bottle 1 DRP EACH EYE (21:50)
[2019-01-26 22:21] LABS: Bedside Glucose 336 mg/dL (70-110)
[2019-01-26 23:31] LABS: Bedside Glucose 250 mg/dL (70-110)
[2019-01-27] VITALS (10 sets, daily range): BP systolic 110–156; BP diastolic 49–80; PULSE 80–95; RESP 14–20; TEMP 36.6–37.3; O2SAT 87–99
[2019-01-27 02:41] LABS: Bedside Glucose 57 mg/dL (70-110)
[2019-01-27 03:06] LABS: Bedside Glucose 100 mg/dL (70-110)
[2019-01-27 04:07] LABS: HEPATITIS B SURFACE AG Negative (Negative); Hepatitis A IgM Antibody Negative (Negative); Hepatitis B Core AB IgM Negative (Negative)
[2019-01-27 04:41] LABS: Bedside Glucose 133 mg/dL (70-110)
--- NOTE | 2019-01-27 05:55 | US_ITS ---
STUDY: ABDOMINAL ULTRASOUND - RIGHT UPPER QUADRANT REASON FOR VISIT: Female, 48 years old. Hepatomegaly. TECHNIQUE: Ultrasound evaluation of the right upper quadrant was performed with real-time and static treadwell-scale imaging. TECHNICAL QUALITY: Adequate. COMPARISON: None. FINDINGS: Ascites. Liver: The liver measures 14.1 cm. There is normal echogenicity of the liver. The bile ducts are within normal limits. There is hepatic color flow. The direction of portal flow is hepatopetal. There is no demonstrated mass lesion. Gallbladder: The patient is status post cholecystectomy. Common Bile Duct (C.B.D.): The common bile duct measures 1.5 mm. Pancreas: There is nonvisualization of the pancreas due to overlying bowel gas. Right Kidney: There is atrophy of the right kidney. Increased cortical echotexture. The right kidney measures 8.3 cm x 3.9 cm x 4.4 cm. There is thinning of the renal cortex. The right cortex measures 0.7 cm. There is no demonstrated renal mass or cyst. There is no right hydronephrosis. US/Liver IMPRESSION: Right renal atrophy. Ascites. Electronically Signed: Thuan Benton, at 12:54 EDT , Service support ,
[2019-01-27 06:06] LABS: Absolute Lymphocyte Count 0.62 X10^3/uL (0.83-4.51); Absolute Neutrophil Count 6.8 X10^3/uL (2.0-7.7); Basophil# 0.03 X10^3/uL; Basophil% 0.4 % (0-1); Eosinophil# 0.21 X10^3/uL; Eosinophils% 2.5 % (0-5); Hematocrit 35.6 % (37-47); Hemoglobin 11.2 g/dL (12.0-15.0); Lymphocyte # 0.62 X10^3/ul (4.0); Lymphocyte % 7.3 % (19-41); Mean Corp Hgb Conc 31.5 g/dL (32-36); Mean Corpuscular Hgb 32.3 pg (27.0-32.0); Mean Corpuscular Volume 102.6 fL (81-99); Mean Platelet Vol. 11.2 fl (6.2-12.0); Monocyte# 0.76 X10^3/uL; NRBC Flagged by Analyzer 0.4 % (0-5); Neutrophil # 6.82 X10^3/uL (2.7-7.7); Neutrophil % 80.2 % (47-70); Platelet Count 172 K/mm3 (150-450); RBC Distribution Width CV 14.8 % (11.6-14.6); RBC Distribution Width SD 55.1 fl (35.1-43.9); Red Blood Count 3.47 M/mm3 (4.2-5.4); White Blood Count 8.5 K/mm3 (4.4-11.0)
[2019-01-27] MEDS: Midodrine HCl 5 MG Tablet 10 MG PO ×3 (06:31→22:04)
[2019-01-27 06:40] LABS: Bedside Glucose 194 mg/dL (70-110)
[2019-01-27 07:03] LABS: ALB/GLOB Ratio 0.5 RATIO (0.9-2.4); AST(SGOT) 26 U/L (15-37); Alanine Aminotransfer ALT/SGPT 41 U/L (13-56); Albumin, Serum 2.2 g/dL (3.2-5.0); Alkaline Phosphatase 1008 U/L (45-117); Anion Gap 13 (5-15); BUN 38 mg/dL (7-18); BUN/Creat Ratio 6.9 RATIO (10-20); Calcium,Total 8.7 mg/dL (8.5-10.1); Chloride 96 mmol/L (98-107); EST Glomerular Filtration Rate 9 mL/min (>60); Est Glom Filt Rate - Afr Amer 11 mL/min (>60); Estimated Creatinine Clearance 11.26 ml/min; Globulin 4.5 g/dL (2.2-4.2); Glucose 167 mg/dL (74-106); Phosphorus 6.4 mg/dL (2.5-4.9); Potassium 4.3 mmol/L (3.5-5.1); Protein, Total 6.7 g/dL (6.4-8.2); Sodium Level 137 mmol/L (136-145)
--- NOTE | 2019-01-27 07:58 | NURSING ---
spoke with Susana POLLARDcharge lpn nurse- states Dr. Manuel is on PCU seeing pts- updated to clarify am coags since MD order for liver biopsy this am. States she will notify .
[2019-01-27 08:28] LABS: PTHIN 442.2 pg/mL (18.4-80.1)
[2019-01-27 08:33] LABS: International Normalized Ratio 1.5; Prothrombin Time (Protime)PT. 17.8 SECONDS (11.7-14.9)
--- NOTE | 2019-01-27 08:47 | US_ITS ---
STUDY: ULTRASOUND OF THE FEMALE PELVIS - COMPLETE REASON FOR EXAM: Female, 48 years old. Ascites. LMP: The patient is status post hysterectomy. TECHNIQUE: Transvaginal TECHNICAL QUALITY: Adequate. COMPARISON: None. FINDINGS: The patient is status post hysterectomy. The right ovary is non-visualized. The left ovary is non-visualized. Large amount of ascites is seen in the lower abdomen and pelvis. US/Transvaginal Non- IMPRESSION: Large amount of ascites is seen in the lower abdomen and pelvis. Electronically Signed: Thuan Benton, at 15:49 EDT , Service support ,
--- NOTE | 2019-01-27 08:48 | US_ITS ---
PROCEDURE: Ultrasound guided paracentesis. DATE OF EXAMINATION: January 27, 2019. INDICATION: Female, 48 years old. Ascites. PHYSICIAN: Thuan Benton M.D. TECHNIQUE: The risks, benefits, and alternatives to the procedure were explained to the patient. The specific risks of bleeding, infection, and damage to bowel were detailed and accepted. Witnessed informed consent was obtained. The abdomen was ultrasonographically surveyed. An appropriate pocket of fluid was identified at the right and left lower quadrants. The skin were cleaned and prepped in the usual sterile fashion. Using ultrasound guidance, the peritoneal cavity was accessed with a 5-Danish paracentesis needle/catheter system. The trocar was removed. A total of 7600 ml of brown-colored fluid were removed from the peritoneal cavity. The catheter was removed and a sterile dressing was applied. The procedure was well tolerated. US/Paracentesis with US IMPRESSION: Ultrasound guided paracentesis. Electronically Signed: Thuan Benton, at 11:05 EDT , Service support ,
--- NOTE | 2019-01-27 09:09 | PCM.CONS.GEN ---
Reason for Consult Date of Consultation: 01/27/19 Reason for Consultation: Ascites etiology History of Present Illness: The patient is a 48 year old F presented to hospital due to not feeling well since Saturday. Patient did miss her dialysis on Saturday as well. Patient states her she is also had a decreased appetite since Saturday. And her abdomen has been getting larger. Patient had a CT abdomen pelvis which showed mass amount of ascites that was loculated. Patient denies ever having ascites in the past. Dr. Manuel asked me to see the patient to try to help with the etiology of her ascites. Patient has had a history of elevated liver functions which have never been worked up. Patient did have a paracentesis for 6 L of brownish fluid. Patient is currently getting ultrasound of her liver. Initial plan was to do a liver biopsy today. However after talking with Dr. Benton the radiologist he is suspicious for ovarian mass due to the loculated ascites. We will plan for a transvaginal ultrasound today and postpone the liver biopsy. Patient currently denies abdominal pain. Patient cytology from her paracentesis is pending, LDH was 536. Past Medical History Past Medical History (Chronic Problems): Chronic Problems (Last Updated 01/24/19 @ 13:27 by Daniella Donald MD) Abnormal LFTs (Chronic) End stage renal disease on dialysis (Chronic) Polyclonal gammopathy (Chronic) PAF (paroxysmal atrial fibrillation) (Chronic) Glaucoma (Chronic) Depression (Chronic) Hyperuricemia (Chronic) Hypertension (Chronic) DM type 1 (diabetes mellitus, type 1) (Chronic) Anemia (Chronic) Medical History: Medical History (Last Updated 01/24/19 @ 13:27 by Daniella Donald MD) End stage renal disease on dialysis (Chronic) N18.6, Z99.2 Polyclonal gammopathy (Chronic) D89.0 PAF (paroxysmal atrial fibrillation) (Chronic) I48.0 Glaucoma (Chronic) H40.9 Depression (Chronic) F32.9 Hyperuricemia (Chronic) E79.0 Hypertension (Chronic) I10 DM type 1 (diabetes mellitus, type 1) (Chronic) E10.9 Anemia (Chronic) D64.9 Metabolic encephalopathy G93.41 DKA (diabetic ketoacidoses) E13.10 Seizure (Inactive) R56.9 ddue to hypoglycemia Allergies Penicillins [PCN] Allergy (Verified 01/23/19 18:12) Hives Home Medications: Ambulatory Orders Medication Instructions Recorded Albuterol Inhaler [Ventolin Hfa] 2 puff INHALATION Q4H PRN PRN 10/28/16 Allopurinol [Zyloprim] 200 mg PO DAILY 10/28/16 Ergocalciferol [Vitamin D] 50,000 unit PO MO 10/28/16 Fluticasone 0.05% [Flonase Nasal 1 spray NASAL DAILY PRN 10/28/16 [place]] Gabapentin [Neurontin] 300 mg PO QHS 10/28/16 Latanoprost 0.005% [Xalatan 1 drop EACH EYE QHS 10/28/16 Opthalmic] Venlafaxine XR [Effexor Xr] 187.5 mg PO DAILY 10/28/16 Sevelamer Carbonate [Renvela] 800 mg PO TID 05/17/17 ALPRAZolam [Xanax] 0.5 mg PO TID PRN PRN 11/22/18 Ascorbic Acid [Vitamin C] 500 mg PO DAILY 11/22/18 Insulin Aspart [Novolog Flexpen] 0 units SUBCUT TID 11/22/18 Ropinirole HCl [Requip] 0.5 mg PO QHS 11/22/18 Vit B Comp No.3/Folic/C/Biotin 1 ea PO DAILY 11/22/18 [Nephro-Reggie Rx Tablet] Insulin Glargine [Lantus SoloStar 4 units SUBCUT QHS #0 01/08/19 Pen] Surgical History: cholecystectomy, hysterectomy, tonsillectomy, - - PD catheter placement, tunneled dialysis catheter placement, AVF 06/08/17. Psychiatric History: Anxiety, Depression ABSENCE MANAGEMENT CONSULTANT History: No pertinent ABSENCE MANAGEMENT CONSULTANT history Smoking Status: Former smoker Alcohol: None - *Family History Maternal History Items: Cancer - Thyroid cancer and lung cancer, Diabetes, Heart Disease Paternal History Items: Diabetes, Heart Disease Review of Systems Constitutional: Denies: Fever HEENT: Denies: Difficulty Swallowing Cardiovascular: Denies: Chest Pain Gastrointestinal: Denies: Abdominal Pain Patient Problems: Active and Suspected Problems (Last Updated 01/24/19 @ 13:27 by Daniella Donald MD) Ascites (Acute) - Physical Exam General: Alert, Oriented x3, Cooperative, No apparent distress Lungs: Normal air movement Cardiovascular: Regular rate Abdomen: Soft, Distended - Moderate, Tender - Minimal tenderness palpation on the right side of the abdomen, no peritoneal signs Vital Signs Temp Pulse Resp BP Pulse Ox 99.1 F 90 18 110/68 91 01/27/19 03:16 01/27/19 06:54 01/27/19 03:16 01/27/19 03:16 01/27/19 07:04 Oxygen Flow Rate (L/min) [9] 3 Oxygen Flow Rate (L/min) [8] 3 Oxygen Flow Rate (L/min) [7] 3 Oxygen Flow Rate (L/min) [6] 3 Oxygen Flow Rate (L/min) [5] 3 Oxygen Flow Rate (L/min) [4] 3 Oxygen Flow Rate (L/min) [3] 3 Oxygen Flow Rate (L/min) [2] 3 Oxygen Delivery Method [10] Room Air Oxygen Delivery Method [9] Nasal Cannula Oxygen Delivery Method [8] Nasal Cannula Oxygen Delivery Method [7] Nasal Cannula Oxygen Delivery Method [6] Nasal Cannula Oxygen Delivery Method [5] Nasal Cannula Oxygen Delivery Method [4] Nasal Cannula Oxygen Delivery Method [3] Nasal Cannula Oxygen Delivery Method [2] Nasal Cannula Oxygen Delivery Method [1 ( Room Air Initial Baseline)] Oxygen Delivery Method Room Air Weight: 156 lb 8.451 oz Body Mass Index (BMI) 30.1 Finger Stick Blood Glucose 250 Intake and Output for Last 24 Hours 01/25/19 01/26/19 01/27/19 23:59 23:59 23:59 Intake Total 387.25 / 387.25 120 / 120 Output Total 0 / 0 8020 / 8020 0 / 0 Balance -7632.75 / -7632.75 120 / 120 Microbiology Past 72 Hours 01/26/19 10:05 Gram Stain - Final Aspirate - Other Laboratory Tests Past 24 Hrs 01/26/19 01/26/19 01/26/19 10:05 10:05 10:05 WBC RBC Hgb Hct MCV MCH MCHC RDW Std Deviation RDW Coeff of Tegan Plt Count MPV Immature Gran % (Auto) Neut % (Auto) Lymph % (Auto) [place] % (Auto) Eos % (Auto) Baso % (Auto) Absolute Neuts (auto) Absolute Lymphs (auto) Nucleated RBC % PT INR APTT Sodium Potassium Chloride Carbon Dioxide Anion Gap BUN Creatinine Estim Creat Clear Calc Est GFR (MDRD) Af Amer Est GFR (MDRD) Non-Af BUN/Creatinine Ratio Glucose Calcium Phosphorus Total Bilirubin AST ALT Alkaline Phosphatase Total Protein Total Protein (PEP) Albumin Globulin Albumin/Globulin Ratio PTH Intact Fluid Source Fluid Color Fluid Appearance Fluid WBC Fluid RBC Fluid Tot Cell Count Fld Polynuclear WBCs # Fld Polynuclear WBCs % Fluid Mononuclear WBCs Fld Mononuclear WBCs % Fluid Neutrophils Fluid Lymphocytes Fluid Monocytes Fl Pathologist Comment Fluid Glucose 196 H Fluid Total Protein 5.4 Fluid LDH 534 Fluid Comment 2 IgG IgA IgM Albumin (HECTOR) Albumin/Globulin (HECTOR) Dnord-8-Jwmcdoqgp HECTOR Gorbl-8-Epkfrdyip HECTOR Beta-Globulins (HECTOR) Gamma Globulins (HECTOR) HECTOR M-Jermaine RYLAN Screen JUN-1 Antibody SS-A/Ro IgG Antibody SS-B/La IgG Antibody Sm (Stern) Antibody DEVELOPER ADVOCATE Antibody Scl-70 Scleroderma Ab Double Strand DNA Ab Centromere B Antibody Anti-Mitochondrial Ab Anti-Smooth Muscle Ab Miscellaneous Cytology Miscellaneous Test Pending 01/26/19 01/26/19 01/27/19 10:05 10:05 05:35 WBC 8.5 RBC 3.47 L Hgb 11.2 L Hct 35.6 L MCV 102.6 H MCH 32.3 H MCHC 31.5 L RDW Std Deviation 55.1 H RDW Coeff of Tegan 14.8 H Plt Count 172 MPV 11.2 Immature Gran % (Auto) 0.600 Neut % (Auto) 80.2 H Lymph % (Auto) 7.3 L [place] % (Auto) 9.0 Eos % (Auto) 2.5 Baso % (Auto) 0.4 Absolute Neuts (auto) 6.8 Absolute Lymphs (auto) 0.62 L Nucleated RBC % 0.4 PT INR APTT Sodium Potassium Chloride Carbon Dioxide Anion Gap BUN Creatinine Estim Creat Clear Calc Est GFR (MDRD) Af Amer Est GFR (MDRD) Non-Af BUN/Creatinine Ratio Glucose Calcium Phosphorus Total Bilirubin AST ALT Alkaline Phosphatase Total Protein Total Protein (PEP) Albumin Globulin Albumin/Globulin Ratio PTH Intact Fluid Source OTHER Fluid Color YELLOW Fluid Appearance TURBID Fluid WBC 2.458 Fluid RBC 0.067 Fluid Tot Cell Count 2.459 H Fld Polynuclear WBCs # 2.340 Fld Polynuclear WBCs % 95.2 Fluid Mononuclear WBCs 0.118 Fld Mononuclear WBCs % 4.8 Fluid Neutrophils 91 Fluid Lymphocytes 5 Fluid Monocytes 4 Fl Pathologist Comment May follow Fluid Glucose Fluid Total Protein Fluid LDH Fluid Comment 2 SEE COMMENT IgG IgA IgM Albumin (HECTOR) Albumin/Globulin (HECTOR) Upvrx-7-Idrhzlwnq HECTOR Fpghd-1-Nknqrfcgh HECTOR Beta-Globulins (HECTOR) Gamma Globulins (HECTOR) HECTOR M-Jermaine RYLAN Screen JUN-1 Antibody SS-A/Ro IgG Antibody SS-B/La IgG Antibody Sm (Stern) Antibody DEVELOPER ADVOCATE Antibody Scl-70 Scleroderma Ab Double Strand DNA Ab Centromere B Antibody Anti-Mitochondrial Ab Anti-Smooth Muscle Ab Miscellaneous Cytology Pending Miscellaneous Test 01/27/19 01/27/19 01/27/19 05:35 05:35 05:35 WBC RBC Hgb Hct MCV MCH MCHC RDW Std Deviation RDW Coeff of Tegan Plt Count MPV Immature Gran % (Auto) Neut % (Auto) Lymph % (Auto) [place] % (Auto) Eos % (Auto) Baso % (Auto) Absolute Neuts (auto) Absolute Lymphs (auto) Nucleated RBC % PT INR APTT Sodium 137 Potassium 4.3 Chloride 96 L Carbon Dioxide 28.0 Anion Gap 13 BUN 38 H Creatinine 5.50 H Estim Creat Clear Calc 11.26 Est GFR (MDRD) Af Amer 11 L Est GFR (MDRD) Non-Af 9 L BUN/Creatinine Ratio 6.9 L Glucose 167 H Calcium 8.7 Phosphorus 6.4 H Total Bilirubin 0.80 AST 26 ALT 41 Alkaline Phosphatase 1008 H Total Protein 6.7 Total Protein (PEP) Pending Albumin 2.2 L Globulin 4.5 H Albumin/Globulin Ratio 0.5 L PTH Intact 442.2 H Fluid Source Fluid Color Fluid Appearance Fluid WBC Fluid RBC Fluid Tot Cell Count Fld Polynuclear WBCs # Fld Polynuclear WBCs % Fluid Mononuclear WBCs Fld Mononuclear WBCs % Fluid Neutrophils Fluid Lymphocytes Fluid Monocytes Fl Pathologist Comment Fluid Glucose Fluid Total Protein Fluid LDH Fluid Comment 2 IgG Pending IgA Pending IgM Pending Albumin (HECTOR) Pending Albumin/Globulin (HECTOR) Pending Qftkk-0-Cruwykfjx HECTOR Pending Xrpgz-4-Rpopvgomr HECTOR Pending Beta-Globulins (HECTOR) Pending Gamma Globulins (HECTOR) Pending HECTOR M-Jermaine Pending RYLAN Screen JUN-1 Antibody SS-A/Ro IgG Antibody SS-B/La IgG Antibody Sm (Stern) Antibody DEVELOPER ADVOCATE Antibody Scl-70 Scleroderma Ab Double Strand DNA Ab Centromere B Antibody Anti-Mitochondrial Ab Anti-Smooth Muscle Ab Pending Miscellaneous Cytology Miscellaneous Test 01/27/19 01/27/19 05:35 08:12 WBC RBC Hgb Hct MCV MCH MCHC RDW Std Deviation RDW Coeff of Tegan Plt Count MPV Immature Gran % (Auto) Neut % (Auto) Lymph % (Auto) [place] % (Auto) Eos % (Auto) Baso % (Auto) Absolute Neuts (auto) Absolute Lymphs (auto) Nucleated RBC % PT 17.8 H INR 1.5 APTT 48.0 H Sodium Potassium Chloride Carbon Dioxide Anion Gap BUN Creatinine Estim Creat Clear Calc Est GFR (MDRD) Af Amer Est GFR (MDRD) Non-Af BUN/Creatinine Ratio Glucose Calcium Phosphorus Total Bilirubin AST ALT Alkaline Phosphatase Total Protein Total Protein (PEP) Albumin Globulin Albumin/Globulin Ratio PTH Intact Fluid Source Fluid Color Fluid Appearance Fluid WBC Fluid RBC Fluid Tot Cell Count Fld Polynuclear WBCs # Fld Polynuclear WBCs % Fluid Mononuclear WBCs Fld Mononuclear WBCs % Fluid Neutrophils Fluid Lymphocytes Fluid Monocytes Fl Pathologist Comment Fluid Glucose Fluid Total Protein Fluid LDH Fluid Comment 2 IgG IgA IgM Albumin (HECTOR) Albumin/Globulin (HECTOR) Nxkna-0-Zclhmdnhi HECTOR Xcdvk-5-Fowodyjsh HECTOR Beta-Globulins (HECTOR) Gamma Globulins (HECTOR) HECTOR M-Jermaine RYLAN Screen Pending JUN-1 Antibody Pending SS-A/Ro IgG Antibody Pending SS-B/La IgG Antibody Pending Sm (Stern) Antibody Pending DEVELOPER ADVOCATE Antibody Pending Scl-70 Scleroderma Ab Pending Double Strand DNA Ab Pending Centromere B Antibody Pending Anti-Mitochondrial Ab Pending Anti-Smooth Muscle Ab Miscellaneous Cytology Miscellaneous Test POC Glucose 01/27/19 01/27/19 01/27/19 06:35 04:38 03:03 POC Glucose 194 H 133 H 100 01/27/19 01/26/19 01/26/19 02:30 23:23 21:45 POC Glucose 57 L 250 H 336 H 01/26/19 01/26/19 01/26/19 17:56 13:52 13:24 POC Glucose 110 141 H 43 L* 01/26/19 11:13 POC Glucose 80 Assessment/Plan All Active Problems (Last Updated 01/24/19 @ 13:27 by Daniella Donald MD) Ascites (Acute) 48-year-old female with new onset abdominal ascites, unknown etiology 1. Discussed with Dr. Manuel and the patient will plan to get the transvaginal ultrasound, check Ca125, will cancel the liver biopsy for now. Await cytology and labs. Nazia Staples M.D. Pager: [phone] [facility] [address] [place] [address], [facility], [address] [place] [address] Office: [phone] Code Visit Inpatient E&M: 10287 Init Hosp L2
[2019-01-27 09:53] LABS: Hep C Antibodies <0.1 s/co ratio (0.0-0.9)
[2019-01-27] MEDS: Allopurinol 100 MG Tablet 200 MG PO (10:49)
[2019-01-27] MEDS: Lidocaine 5% Patch 1 PATCH TOPICAL (10:49)
--- NOTE | 2019-01-27 11:00 | NURSING ---
[facility] late d/t pt being off unit @ MRI
[2019-01-27 11:45] LABS: Bedside Glucose 266 mg/dL (70-110)
[2019-01-27] MEDS: Insulin Lispro 100 UNIT/ML INSULN.PEN SC ×2 (12:11→22:04)
[2019-01-27] MEDS: Albumin Human 25% (100 mL) 25 GM/100 ML BAG IV (12:12)
[2019-01-27 12:17] LABS: Pathologist Comment/Body Fluid Reviewed
[2019-01-27] MEDS: SEVELAMER CARBONATE 800 MG TABLET PO (12:19)
--- NOTE | 2019-01-27 13:38 | PCM.PN.REN ---
Patient Problems: Active and Suspected Problems (Last Updated 01/24/19 @ 13:27 by Daniella Donald MD) Ascites (Acute) Subjective: Pt tolerated HD session well yesterday Pt had another paracentesis today with 7 L fluid removal Pt has poor appetite No SOB No N/V - Physical Exam General: Alert, Oriented x3 HEENT: Atraumatic Oral: Moist Mucosa Neck: Supple, No JVD Lungs: Clear to auscultation, Normal air movement, No rhonchi, No wheeze Cardiovascular: Regular rate, Regular Rhythm, Normal S1, Normal S2 Abdomen: Bowel Sounds Present, Soft, Non Tender, Non-Distended Extremities: No clubbing, No cyanosis, No edema Musculoskeletal: Cachexia Lymphatic: No Cervical, Supraclavicular, or Inguinal Adenopathy Neurological: Cranial nerves II-XII grossly intact, Neuro grossly intact Psych/Mental Status: Appropriate Vital Signs Temp Pulse Resp BP Pulse Ox 97.9 F 86 20 H 126/49 H 98 01/27/19 10:30 01/27/19 10:30 01/27/19 10:30 01/27/19 10:30 01/27/19 10:30 Oxygen Flow Rate (L/min) [10] 2 Oxygen Flow Rate (L/min) [9] 2 Oxygen Flow Rate (L/min) [8] 2 Oxygen Flow Rate (L/min) [7] 2 Oxygen Flow Rate (L/min) [6] 2 Oxygen Flow Rate (L/min) [5] 2 Oxygen Flow Rate (L/min) [4] 2 Oxygen Flow Rate (L/min) [3] 3 Oxygen Flow Rate (L/min) [2] 2 Oxygen Delivery Method [10] Nasal Cannula Oxygen Delivery Method [9] Nasal Cannula Oxygen Delivery Method [8] Nasal Cannula Oxygen Delivery Method [7] Nasal Cannula Oxygen Delivery Method [6] Nasal Cannula Oxygen Delivery Method [5] Nasal Cannula Oxygen Delivery Method [4] Nasal Cannula Oxygen Delivery Method [3] Nasal Cannula Oxygen Delivery Method [2] Nasal Cannula Oxygen Delivery Method [1 ( Room Air Initial Baseline)] Oxygen Delivery Method Room Air Weight: 71 kg Body Mass Index (BMI) 30.1 Finger Stick Blood Glucose 250 Intake and Output for Last 24 Hours 01/25/19 01/26/19 01/27/19 23:59 23:59 23:59 Intake Total 387.25 / 387.25 460 / 460 Output Total 0 / 0 8020 / 8020 7550 / 7550 Balance -7632.75 / -7632.75 -7090 / -7090 Microbiology Past 72 Hours 01/26/19 10:05 Gram Stain - Final Aspirate - Other Laboratory Tests Past 24 Hrs 01/26/19 01/26/19 01/27/19 05:15 10:05 05:35 WBC 8.5 RBC 3.47 L Hgb 11.2 L Hct 35.6 L MCV 102.6 H MCH 32.3 H MCHC 31.5 L RDW Std Deviation 55.1 H RDW Coeff of Tegan 14.8 H Plt Count 172 MPV 11.2 Immature Gran % (Auto) 0.600 Neut % (Auto) 80.2 H Lymph % (Auto) 7.3 L [place] % (Auto) 9.0 Eos % (Auto) 2.5 Baso % (Auto) 0.4 Absolute Neuts (auto) 6.8 Absolute Lymphs (auto) 0.62 L Nucleated RBC % 0.4 PT INR APTT Sodium Potassium Chloride Carbon Dioxide Anion Gap BUN Creatinine Estim Creat Clear Calc Est GFR (MDRD) Af Amer Est GFR (MDRD) Non-Af BUN/Creatinine Ratio Glucose Calcium Phosphorus Total Bilirubin AST ALT Alkaline Phosphatase Total Protein Total Protein (PEP) Albumin Globulin Albumin/Globulin Ratio CA 125 Antigen PTH Intact Fl Pathologist Comment Reviewed IgG IgA IgM Albumin (HECTOR) Albumin/Globulin (HECTOR) Exikp-9-Irgcjirfg HECTOR Cszch-5-[place]isc HECTOR Beta-Globulins (HECTOR) Gamma Globulins (HECTOR) HECTOR M-Jermaine RYLAN Screen JUN-1 Antibody SS-A/Ro IgG Antibody SS-B/La IgG Antibody Sm (Stern) Antibody ROUTER OPERATOR RADIAL Antibody Scl-70 Scleroderma Ab Double Strand DNA Ab Centromere B Antibody Anti-Mitochondrial Ab Anti-Smooth Muscle Ab Hepatitis A IgM Ab Negative Hep Bs Antigen Negative Hep B Core IgM Ab Negative Hepatitis C Ab (EIA) <0.1 01/27/19 01/27/19 01/27/19 05:35 05:35 05:35 WBC RBC Hgb Hct MCV MCH MCHC RDW Std Deviation RDW Coeff of Tegan Plt Count MPV Immature Gran % (Auto) Neut % (Auto) Lymph % (Auto) [place] % (Auto) Eos % (Auto) Baso % (Auto) Absolute Neuts (auto) Absolute Lymphs (auto) Nucleated RBC % PT INR APTT Sodium 137 Potassium 4.3 Chloride 96 L Carbon Dioxide 28.0 Anion Gap 13 BUN 38 H Creatinine 5.50 H Estim Creat Clear Calc 11.26 Est GFR (MDRD) Af Amer 11 L Est GFR (MDRD) Non-Af 9 L BUN/Creatinine Ratio 6.9 L Glucose 167 H Calcium 8.7 Phosphorus 6.4 H Total Bilirubin 0.80 AST 26 ALT 41 Alkaline Phosphatase 1008 H Total Protein 6.7 Total Protein (PEP) Pending Albumin 2.2 L Globulin 4.5 H Albumin/Globulin Ratio 0.5 L CA 125 Antigen PTH Intact 442.2 H Fl Pathologist Comment IgG Pending IgA Pending IgM Pending Albumin (HECTOR) Pending Albumin/Globulin (HECTOR) Pending Gigbe-8-Bqqqmzlyx HECTOR Pending Lmqwl-8-Kcorluvti HECTOR Pending Beta-Globulins (HECTOR) Pending Gamma Globulins (HECTOR) Pending HECTOR M-Jermaine Pending RYLAN Screen JUN-1 Antibody SS-A/Ro IgG Antibody SS-B/La IgG Antibody Sm (Stern) Antibody ROUTER OPERATOR RADIAL Antibody Scl-70 Scleroderma Ab Double Strand DNA Ab Centromere B Antibody Anti-Mitochondrial Ab Anti-Smooth Muscle Ab Pending Hepatitis A IgM Ab Hep Bs Antigen Hep B Core IgM Ab Hepatitis C Ab (EIA) 01/27/19 01/27/19 01/27/19 05:35 05:35 08:12 WBC RBC Hgb Hct MCV MCH MCHC RDW Std Deviation RDW Coeff of Tegan Plt Count MPV Immature Gran % (Auto) Neut % (Auto) Lymph % (Auto) [place] % (Auto) Eos % (Auto) Baso % (Auto) Absolute Neuts (auto) Absolute Lymphs (auto) Nucleated RBC % PT 17.8 H INR 1.5 APTT 48.0 H Sodium Potassium Chloride Carbon Dioxide Anion Gap BUN Creatinine Estim Creat Clear Calc Est GFR (MDRD) Af Amer Est GFR (MDRD) Non-Af BUN/Creatinine Ratio Glucose Calcium Phosphorus Total Bilirubin AST ALT Alkaline Phosphatase Total Protein Total Protein (PEP) Albumin Globulin Albumin/Globulin Ratio CA 125 Antigen Pending PTH Intact Fl Pathologist Comment IgG IgA IgM Albumin (HECTOR) Albumin/Globulin (HECTOR) Vhnjo-7-Dtplrmusg HECTOR Nvxwi-3-Clduircea HECTOR Beta-Globulins (HECTOR) Gamma Globulins (HECTOR) HECTOR M-Jermaine RYLAN Screen Pending JUN-1 Antibody Pending SS-A/Ro IgG Antibody Pending SS-B/La IgG Antibody Pending Sm (Stern) Antibody Pending ROUTER OPERATOR RADIAL Antibody Pending Scl-70 Scleroderma Ab Pending Double Strand DNA Ab Pending Centromere B Antibody Pending Anti-Mitochondrial Ab Pending Anti-Smooth Muscle Ab Hepatitis A IgM Ab Hep Bs Antigen Hep B Core IgM Ab Hepatitis C Ab (EIA) POC Glucose 01/27/19 01/27/19 01/27/19 11:40 06:35 04:38 POC Glucose 266 H 194 H 133 H 01/27/19 01/27/19 01/26/19 03:03 02:30 23:23 POC Glucose 100 57 L 250 H 01/26/19 01/26/19 01/26/19 21:45 17:56 13:52 POC Glucose 336 H 110 141 H 01/26/19 13:24 POC Glucose 43 L* Medical Necessity - Tobacco Use Smoking Status: Former smoker Assessment/Plan All Active Problems (Last Updated 01/24/19 @ 13:27 by Daniella Donald MD) Ascites (Acute) 1-end-stage renal disease on Saturday hemodialysis schedule. Patient goes to [facility]. is her primary desktop support manager. Last HD session 01/26. No need for HD session today Will arrange for HD session tomorrow if remains inpatient Hemodialysis access is left upper extremity AV fistula. 2-anemia: Hemoglobin more than 11. No need for KEM. 3-bone mineral disease. Patient is on sevelamer. P is 6.4. Will increase sevelamer dose PTH is elevated > 400. Will start calcitriol 0.5 mcg PO daily 4-hypotension:Better with Midodrine. Continue Midodrine 10 mg 3 times daily to help removing fluid. 5-ascites. New onset. Unclear etiology.Pt could have ovarian mass. waiting on transvaginal US Pt had paracentesis X 2 with 13 L fluid removal. follow result of fluid analysis Thank you for allowing me to participate in Ms. Galdamez's care. Please call if any question concern at [phone]. Plan of care was discussed with nurse practitioner Alex Roberts. NANNETTE DURHAM MD
--- NOTE | 2019-01-27 14:43 | PCM.PROGNOTE ---
<Alex Roberts - Last Filed: 01/27/19 14:43> Patient Problems: Active and Suspected Problems (Last Updated 01/24/19 @ 13:27 by Daniella Donald MD) Ascites (Acute) Subjective: Patient underwent a second paracentesis today, which removed 7600 cc of ascites. Since she has a hoarse throat and weak voice. No SOB, abdominal pain, No LH/Dizziness, no increased weakness, no nausea or vomiting. - Physical Exam General: Alert, Oriented x3, Cooperative HEENT: Atraumatic, PERRLA, EOMI, Normocephalic Neck: Supple, No JVD, Negative Carotid Bruits Lungs: Clear to auscultation, Normal air movement Cardiovascular: Regular rate, No murmurs Abdomen: Bowel Sounds Present, Soft, Non Tender Extremities: No edema, Capillary Refill Less than 3 Seconds Skin: No rashes, No breakdown Musculoskeletal: No Tenderness to Palpation of Joints or Extremities Neurological: Cranial nerves II-XII grossly intact Psych/Mental Status: Normal Affect, Appropriate, Alert and oriented to time, place, person, mood and affect Vital Signs Temp Pulse Resp BP Pulse Ox 97.9 F 86 20 H 126/49 H 98 01/27/19 10:30 01/27/19 10:30 01/27/19 10:30 01/27/19 10:30 01/27/19 10:30 Oxygen Flow Rate (L/min) [10] 2 Oxygen Flow Rate (L/min) [9] 2 Oxygen Flow Rate (L/min) [8] 2 Oxygen Flow Rate (L/min) [7] 2 Oxygen Flow Rate (L/min) [6] 2 Oxygen Flow Rate (L/min) [5] 2 Oxygen Flow Rate (L/min) [4] 2 Oxygen Flow Rate (L/min) [3] 3 Oxygen Flow Rate (L/min) [2] 2 Oxygen Delivery Method [10] Nasal Cannula Oxygen Delivery Method [9] Nasal Cannula Oxygen Delivery Method [8] Nasal Cannula Oxygen Delivery Method [7] Nasal Cannula Oxygen Delivery Method [6] Nasal Cannula Oxygen Delivery Method [5] Nasal Cannula Oxygen Delivery Method [4] Nasal Cannula Oxygen Delivery Method [3] Nasal Cannula Oxygen Delivery Method [2] Nasal Cannula Oxygen Delivery Method [1 ( Room Air Initial Baseline)] Oxygen Delivery Method Room Air Weight: 156 lb 8.451 oz Body Mass Index (BMI) 30.1 Finger Stick Blood Glucose 250 Intake and Output for Last 24 Hours 01/25/19 01/26/19 01/27/19 23:59 23:59 23:59 Intake Total 387.25 / 387.25 560 / 560 Output Total 0 / 0 8020 / 8020 7550 / 7550 Balance -7632.75 / -7632.75 -6990 / -6990 Microbiology Past 72 Hours 01/26/19 10:05 Gram Stain - Final Aspirate - Other Laboratory Tests Past 24 Hrs 01/26/19 01/26/19 01/26/19 05:15 10:05 10:05 WBC RBC Hgb Hct MCV MCH MCHC RDW Std Deviation RDW Coeff of Tegan Plt Count MPV Immature Gran % (Auto) Neut % (Auto) Lymph % (Auto) Lassen % (Auto) Eos % (Auto) Baso % (Auto) Absolute Neuts (auto) Absolute Lymphs (auto) Nucleated RBC % PT INR APTT Sodium Potassium Chloride Carbon Dioxide Anion Gap BUN Creatinine Estim Creat Clear Calc Est GFR (MDRD) Af Amer Est GFR (MDRD) Non-Af BUN/Creatinine Ratio Glucose Calcium Phosphorus Total Bilirubin AST ALT Alkaline Phosphatase Total Protein Total Protein (PEP) Albumin Globulin Albumin/Globulin Ratio CA 125 Antigen PTH Intact Fl Pathologist Comment Reviewed IgG IgA IgM Albumin (HECTOR) Albumin/Globulin (HECTOR) Kuytl-5-Mfxqmjrfg HECTOR Jxqbc-3-Grfunrakz HECTOR Beta-Globulins (HECTOR) Gamma Globulins (HECTOR) HECTOR M-Jermaine RYLAN Screen JUN-1 Antibody SS-A/Ro IgG Antibody SS-B/La IgG Antibody Sm (Stern) Antibody MASH FILTER PRESS OPERATOR Antibody Scl-70 Scleroderma Ab Double Strand DNA Ab Centromere B Antibody Anti-Mitochondrial Ab Anti-Smooth Muscle Ab Hepatitis A IgM Ab Negative Hep Bs Antigen Negative Hep B Core IgM Ab Negative Hepatitis C Ab (EIA) <0.1 Miscellaneous Cytology SEE PATHOLOGY REPORT 01/27/19 01/27/19 01/27/19 05:35 05:35 05:35 WBC 8.5 RBC 3.47 L Hgb 11.2 L Hct 35.6 L MCV 102.6 H MCH 32.3 H MCHC 31.5 L RDW Std Deviation 55.1 H RDW Coeff of Tegan 14.8 H Plt Count 172 MPV 11.2 Immature Gran % (Auto) 0.600 Neut % (Auto) 80.2 H Lymph % (Auto) 7.3 L Lassen % (Auto) 9.0 Eos % (Auto) 2.5 Baso % (Auto) 0.4 Absolute Neuts (auto) 6.8 Absolute Lymphs (auto) 0.62 L Nucleated RBC % 0.4 PT INR APTT Sodium 137 Potassium 4.3 Chloride 96 L Carbon Dioxide 28.0 Anion Gap 13 BUN 38 H Creatinine 5.50 H Estim Creat Clear Calc 11.26 Est GFR (MDRD) Af Amer 11 L Est GFR (MDRD) Non-Af 9 L BUN/Creatinine Ratio 6.9 L Glucose 167 H Calcium 8.7 Phosphorus 6.4 H Total Bilirubin 0.80 AST 26 ALT 41 Alkaline Phosphatase 1008 H Total Protein 6.7 Total Protein (PEP) Albumin 2.2 L Globulin 4.5 H Albumin/Globulin Ratio 0.5 L CA 125 Antigen PTH Intact 442.2 H Fl Pathologist Comment IgG IgA IgM Albumin (HECTOR) Albumin/Globulin (HECTOR) Amhlu-9-Wugkqgkuw HECTOR Pjhjw-3-Kvigbgzzf HECTOR Beta-Globulins (HECTOR) Gamma Globulins (HECTOR) HECTOR M-Jermaine RYLAN Screen JUN-1 Antibody SS-A/Ro IgG Antibody SS-B/La IgG Antibody Sm (Stern) Antibody MASH FILTER PRESS OPERATOR Antibody Scl-70 Scleroderma Ab Double Strand DNA Ab Centromere B Antibody Anti-Mitochondrial Ab Anti-Smooth Muscle Ab Hepatitis A IgM Ab Hep Bs Antigen Hep B Core IgM Ab Hepatitis C Ab (EIA) Miscellaneous Cytology 01/27/19 01/27/19 01/27/19 05:35 05:35 05:35 WBC RBC Hgb Hct MCV MCH MCHC RDW Std Deviation RDW Coeff of Tegan Plt Count MPV Immature Gran % (Auto) Neut % (Auto) Lymph % (Auto) Lassen % (Auto) Eos % (Auto) Baso % (Auto) Absolute Neuts (auto) Absolute Lymphs (auto) Nucleated RBC % PT INR APTT Sodium Potassium Chloride Carbon Dioxide Anion Gap BUN Creatinine Estim Creat Clear Calc Est GFR (MDRD) Af Amer Est GFR (MDRD) Non-Af BUN/Creatinine Ratio Glucose Calcium Phosphorus Total Bilirubin AST ALT Alkaline Phosphatase Total Protein Total Protein (PEP) Pending Albumin Globulin Albumin/Globulin Ratio CA 125 Antigen Pending PTH Intact Fl Pathologist Comment IgG Pending IgA Pending IgM Pending Albumin (HECTOR) Pending Albumin/Globulin (HECTOR) Pending Ypzum-0-Kcopihqxk HECTOR Pending Vulpm-3-Rwnosgoqh HECTOR Pending Beta-Globulins (HECTOR) Pending Gamma Globulins (HECTOR) Pending HECTOR M-Jermaine Pending RYLAN Screen Pending JUN-1 Antibody Pending SS-A/Ro IgG Antibody Pending SS-B/La IgG Antibody Pending Sm (Stern) Antibody Pending MASH FILTER PRESS OPERATOR Antibody Pending Scl-70 Scleroderma Ab Pending Double Strand DNA Ab Pending Centromere B Antibody Pending Anti-Mitochondrial Ab Pending Anti-Smooth Muscle Ab Pending Hepatitis A IgM Ab Hep Bs Antigen Hep B Core IgM Ab Hepatitis C Ab (EIA) Miscellaneous Cytology 01/27/19 08:12 WBC RBC Hgb Hct MCV MCH MCHC RDW Std Deviation RDW Coeff of Tegan Plt Count MPV Immature Gran % (Auto) Neut % (Auto) Lymph % (Auto) Lassen % (Auto) Eos % (Auto) Baso % (Auto) Absolute Neuts (auto) Absolute Lymphs (auto) Nucleated RBC % PT 17.8 H INR 1.5 APTT 48.0 H Sodium Potassium Chloride Carbon Dioxide Anion Gap BUN Creatinine Estim Creat Clear Calc Est GFR (MDRD) Af Amer Est GFR (MDRD) Non-Af BUN/Creatinine Ratio Glucose Calcium Phosphorus Total Bilirubin AST ALT Alkaline Phosphatase Total Protein Total Protein (PEP) Albumin Globulin Albumin/Globulin Ratio CA 125 Antigen PTH Intact Fl Pathologist Comment IgG IgA IgM Albumin (HECTOR) Albumin/Globulin (HECTOR) Cxlia-6-Kugrhrevk HECTOR Fbalh-6-Nklwhqrir HECTOR Beta-Globulins (HECTOR) Gamma Globulins (HECTOR) HECTOR M-Jermaine RYLAN Screen JUN-1 Antibody SS-A/Ro IgG Antibody SS-B/La IgG Antibody Sm (Stern) Antibody MASH FILTER PRESS OPERATOR Antibody Scl-70 Scleroderma Ab Double Strand DNA Ab Centromere B Antibody Anti-Mitochondrial Ab Anti-Smooth Muscle Ab Hepatitis A IgM Ab Hep Bs Antigen Hep B Core IgM Ab Hepatitis C Ab (EIA) Miscellaneous Cytology POC Glucose 01/27/19 01/27/19 01/27/19 11:40 06:35 04:38 POC Glucose 266 H 194 H 133 H 01/27/19 01/27/19 01/26/19 03:03 02:30 23:23 POC Glucose 100 57 L 250 H 01/26/19 01/26/19 21:45 17:56 POC Glucose 336 H 110 Medical Necessity - Tobacco Use Smoking Status: Former smoker Assessment/Plan All Active Problems (Last Updated 01/24/19 @ 13:27 by Daniella Donald MD) Ascites (Acute) 1. Ascites unclear etiology - additional 7600cc pulled today after repeat paracentesis. Transvaginal US done - pending. Surgery consulted. Nephrology following. LFTs continue to improve. CA125 ordered. Significantly elevated LDH in fluid. Liver US with right renal atrophy and ascites. Liver bx on hold. Further labs pending. 2. ESRD - as above - continue per direction by Nephrology. 3. Dmt1 - SSI, lantus 4. Depression/Anx - venlafaxine (STOP), xanax. 5. RLS - mirapex DVT ppx: SCDs DC planning: reassess in AM. This patient was seen by Alex Roberts PA-C under the supervision of Doctor Kaleb <Ariane Manuel - Last Filed: 01/27/19 15:22> - Physical Exam Vital Signs Temp Pulse Resp BP Pulse Ox 97.9 F 86 20 H 126/49 H 98 01/27/19 10:30 01/27/19 10:30 01/27/19 10:30 01/27/19 10:30 01/27/19 10:30 Oxygen Flow Rate (L/min) [10] 2 Oxygen Flow Rate (L/min) [9] 2 Oxygen Flow Rate (L/min) [8] 2 Oxygen Flow Rate (L/min) [7] 2 Oxygen Flow Rate (L/min) [6] 2 Oxygen Flow Rate (L/min) [5] 2 Oxygen Flow Rate (L/min) [4] 2 Oxygen Flow Rate (L/min) [3] 3 Oxygen Flow Rate (L/min) [2] 2 Oxygen Delivery Method [10] Nasal Cannula Oxygen Delivery Method [9] Nasal Cannula Oxygen Delivery Method [8] Nasal Cannula Oxygen Delivery Method [7] Nasal Cannula Oxygen Delivery Method [6] Nasal Cannula Oxygen Delivery Method [5] Nasal Cannula Oxygen Delivery Method [4] Nasal Cannula Oxygen Delivery Method [3] Nasal Cannula Oxygen Delivery Method [2] Nasal Cannula Oxygen Delivery Method [1 ( Room Air Initial Baseline)] Oxygen Delivery Method Room Air Weight: 156 lb 8.451 oz Body Mass Index (BMI) 30.1 Finger Stick Blood Glucose 250 Intake and Output for Last 24 Hours 01/25/19 01/26/19 01/27/19 23:59 23:59 23:59 Intake Total 387.25 / 387.25 560 / 560 Output Total 0 / 0 8020 / 8020 7550 / 7550 Balance -7632.75 / -7632.75 -6990 / -6990 Microbiology Past 72 Hours 01/26/19 10:05 Gram Stain - Final Aspirate - Other Laboratory Tests Past 24 Hrs 01/26/19 01/26/19 01/26/19 05:15 10:05 10:05 WBC RBC Hgb Hct MCV MCH MCHC RDW Std Deviation RDW Coeff of Tegan Plt Count MPV Immature Gran % (Auto) Neut % (Auto) Lymph % (Auto) Lassen % (Auto) Eos % (Auto) Baso % (Auto) Absolute Neuts (auto) Absolute Lymphs (auto) Nucleated RBC % PT INR APTT Sodium Potassium Chloride Carbon Dioxide Anion Gap BUN Creatinine Estim Creat Clear Calc Est GFR (MDRD) Af Amer Est GFR (MDRD) Non-Af BUN/Creatinine Ratio Glucose Calcium Phosphorus Total Bilirubin AST ALT Alkaline Phosphatase Total Protein Total Protein (PEP) Albumin Globulin Albumin/Globulin Ratio CA 125 Antigen PTH Intact Fl Pathologist Comment Reviewed IgG IgA IgM Albumin (HECTOR) Albumin/Globulin (HECTOR) Liegq-1-Rdmzzaulp HECTOR Yawxu-6-Sjdnjddtl HECTOR Beta-Globulins (HECTOR) Gamma Globulins (HECTOR) HECTOR M-Jermaine RYLAN Screen JUN-1 Antibody SS-A/Ro IgG Antibody SS-B/La IgG Antibody Sm (Stern) Antibody MASH FILTER PRESS OPERATOR Antibody Scl-70 Scleroderma Ab Double Strand DNA Ab Centromere B Antibody Anti-Mitochondrial Ab Anti-Smooth Muscle Ab Hepatitis A IgM Ab Negative Hep Bs Antigen Negative Hep B Core IgM Ab Negative Hepatitis C Ab (EIA) <0.1 Miscellaneous Cytology SEE PATHOLOGY REPORT 01/27/19 01/27/19 01/27/19 05:35 05:35 05:35 WBC 8.5 RBC 3.47 L Hgb 11.2 L Hct 35.6 L MCV 102.6 H MCH 32.3 H MCHC 31.5 L RDW Std Deviation 55.1 H RDW Coeff of Tegan 14.8 H Plt Count 172 MPV 11.2 Immature Gran % (Auto) 0.600 Neut % (Auto) 80.2 H Lymph % (Auto) 7.3 L Lassen % (Auto) 9.0 Eos % (Auto) 2.5 Baso % (Auto) 0.4 Absolute Neuts (auto) 6.8 Absolute Lymphs (auto) 0.62 L Nucleated RBC % 0.4 PT INR APTT Sodium 137 Potassium 4.3 Chloride 96 L Carbon Dioxide 28.0 Anion Gap 13 BUN 38 H Creatinine 5.50 H Estim Creat Clear Calc 11.26 Est GFR (MDRD) Af Amer 11 L Est GFR (MDRD) Non-Af 9 L BUN/Creatinine Ratio 6.9 L Glucose 167 H Calcium 8.7 Phosphorus 6.4 H Total Bilirubin 0.80 AST 26 ALT 41 Alkaline Phosphatase 1008 H Total Protein 6.7 Total Protein (PEP) Albumin 2.2 L Globulin 4.5 H Albumin/Globulin Ratio 0.5 L CA 125 Antigen PTH Intact 442.2 H Fl Pathologist Comment IgG IgA IgM Albumin (HECTOR) Albumin/Globulin (HECTOR) Lohty-7-Gpdmnzfmc HECTOR Vbpne-0-Jwimancpa HECTOR Beta-Globulins (HECTOR) Gamma Globulins (HECTOR) HECTOR M-Jermaine RYLAN Screen JUN-1 Antibody SS-A/Ro IgG Antibody SS-B/La IgG Antibody Sm (Stern) Antibody MASH FILTER PRESS OPERATOR Antibody Scl-70 Scleroderma Ab Double Strand DNA Ab Centromere B Antibody Anti-Mitochondrial Ab Anti-Smooth Muscle Ab Hepatitis A IgM Ab Hep Bs Antigen Hep B Core IgM Ab Hepatitis C Ab (EIA) Miscellaneous Cytology 01/27/19 01/27/19 01/27/19 05:35 05:35 05:35 WBC RBC Hgb Hct MCV MCH MCHC RDW Std Deviation RDW Coeff of Tegan Plt Count MPV Immature Gran % (Auto) Neut % (Auto) Lymph % (Auto) Lassen % (Auto) Eos % (Auto) Baso % (Auto) Absolute Neuts (auto) Absolute Lymphs (auto) Nucleated RBC % PT INR APTT Sodium Potassium Chloride Carbon Dioxide Anion Gap BUN Creatinine Estim Creat Clear Calc Est GFR (MDRD) Af Amer Est GFR (MDRD) Non-Af BUN/Creatinine Ratio Glucose Calcium Phosphorus Total Bilirubin AST ALT Alkaline Phosphatase Total Protein Total Protein (PEP) Pending Albumin Globulin Albumin/Globulin Ratio CA 125 Antigen Pending PTH Intact Fl Pathologist Comment IgG Pending IgA Pending IgM Pending Albumin (HECTOR) Pending Albumin/Globulin (HECTOR) Pending Mjwxq-4-Wpjgkbmba HECTOR Pending Sxflk-1-Pgpvvbktp HECTOR Pending Beta-Globulins (HECTOR) Pending Gamma Globulins (HECTOR) Pending HECTOR M-Jermaine Pending RYLAN Screen Pending JUN-1 Antibody Pending SS-A/Ro IgG Antibody Pending SS-B/La IgG Antibody Pending Sm (Stern) Antibody Pending MASH FILTER PRESS OPERATOR Antibody Pending Scl-70 Scleroderma Ab Pending Double Strand DNA Ab Pending Centromere B Antibody Pending Anti-Mitochondrial Ab Pending Anti-Smooth Muscle Ab Pending Hepatitis A IgM Ab Hep Bs Antigen Hep B Core IgM Ab Hepatitis C Ab (EIA) Miscellaneous Cytology 01/27/19 08:12 WBC RBC Hgb Hct MCV MCH MCHC RDW Std Deviation RDW Coeff of Tegan Plt Count MPV Immature Gran % (Auto) Neut % (Auto) Lymph % (Auto) Lassen % (Auto) Eos % (Auto) Baso % (Auto) Absolute Neuts (auto) Absolute Lymphs (auto) Nucleated RBC % PT 17.8 H INR 1.5 APTT 48.0 H Sodium Potassium Chloride Carbon Dioxide Anion Gap BUN Creatinine Estim Creat Clear Calc Est GFR (MDRD) Af Amer Est GFR (MDRD) Non-Af BUN/Creatinine Ratio Glucose Calcium Phosphorus Total Bilirubin AST ALT Alkaline Phosphatase Total Protein Total Protein (PEP) Albumin Globulin Albumin/Globulin Ratio CA 125 Antigen PTH Intact Fl Pathologist Comment IgG IgA IgM Albumin (HECTOR) Albumin/Globulin (HECTOR) Xvjai-6-Otcgcpkxl HECTOR Syire-2-Qrswbbeuf HECTOR Beta-Globulins (HECTOR) Gamma Globulins (HECTOR) HECTOR M-Jermaine RYLAN Screen JUN-1 Antibody SS-A/Ro IgG Antibody SS-B/La IgG Antibody Sm (Stern) Antibody MASH FILTER PRESS OPERATOR Antibody Scl-70 Scleroderma Ab Double Strand DNA Ab Centromere B Antibody Anti-Mitochondrial Ab Anti-Smooth Muscle Ab Hepatitis A IgM Ab Hep Bs Antigen Hep B Core IgM Ab Hepatitis C Ab (EIA) Miscellaneous Cytology POC Glucose 01/27/19 01/27/19 01/27/19 11:40 06:35 04:38 POC Glucose 266 H 194 H 133 H 01/27/19 01/27/19 01/26/19 03:03 02:30 23:23 POC Glucose 100 57 L 250 H 01/26/19 01/26/19 21:45 17:56 POC Glucose 336 H 110 Assessment/Plan Patient seen and examined. She was seen after having repeat paracentesis today. Patient went off her liver ultrasound was noted to have reaccumulation of ascitic fluid. She therefore had thoracentesis with drainage of 7.6L. She had no complaints afterwards. Review of systems otherwise negative. She had a transvaginal ultrasound done on account of suspicion of possible ovarian mass. General surgery is on board and nephrology is also on board. Ca1 25 was ordered and is pending. Hepatitis be antigen and hep C antibody are negative. o/e: Vital Signs Height 5 ft 5 in Weight: 156 lb 8.451 oz Weight in Pounds 156.5 lbs Pulse Ox 98 Temperature 97.9 F Pulse Rate [10] 84 Pulse Rate [9] 82 Pulse Rate [8] 82 Pulse Rate [7] 81 Pulse Rate [6] 82 Pulse Rate [5] 81 Pulse Rate [4] 80 Pulse Rate [3] 81 Pulse Rate [2] 81 Pulse Rate [1 (Initial 83 Baseline)] Pulse Rate 86 Respiratory Rate [10] 20 Respiratory Rate [9] 20 Respiratory Rate [8] 18 Respiratory Rate [7] 18 Respiratory Rate [6] 18 Respiratory Rate [5] 16 Respiratory Rate [4] 18 Respiratory Rate [3] 14 Respiratory Rate [2] 16 Respiratory Rate [1 (Initial 18 Baseline)] Respiratory Rate 20 Blood Pressure [10] 133/69 Blood Pressure [9] 133/74 Blood Pressure [8] 136/72 Blood Pressure [7] 142/73 Blood Pressure [6] 132/68 Blood Pressure [5] 127/67 Blood Pressure [4] 132/70 Blood Pressure [3] 127/68 Blood Pressure [2] 131/70 Blood Pressure [1 (Initial 131/68 Baseline)] Blood Pressure 126/49 Blood Pressure Position Semi-Fowlers General: Alert, Oriented x3, Cooperative, looks frail HEENT: Atraumatic, PERRLA, EOMI, Normocephalic Neck: Supple, No JVD, Negative Carotid Bruits Lungs: Clear to auscultation, Normal air movement Cardiovascular: Regular rate, No murmurs Abdomen: Bowel Sounds Present, minimal tenderness, no organomegaly Extremities: No edema, Capillary Refill Less than 3 Seconds Skin: No rashes, No breakdown Musculoskeletal: No Tenderness to Palpation of Joints or Extremities Neurological: Cranial nerves II-XII grossly intact Psych/Mental Status: Normal Affect, Appropriate, Alert and oriented to time, place, person, mood and affect Patient had an additional 7 L of ascitic fluid drained today, making a total of 13.6 L drained since yesterday. Will give another dose of albumin 25 g IV today. Still on IV Levaquin every 48 hours with dialysis. Liver ultrasound done today showed ascites and right renal atrophy. Transvaginal ultrasound ordered and report pending. Ca1 25 antigen ordered and also pending. Work-up for suspected primary biliary cholangitis ordered and is pending. As at now, etiology of ascites is still not clear. WIll await transvaginal USG results. Ascitic album is still pending. Rest of management as per Alex Roberts PA-C's note, which I have reviewed and endorsed. Code Visit Inpatient E&M: 02906 Subs Hosp L3
[2019-01-27] MEDS: Mag Hydrox/Al Hydrox/Simeth 30 ML UDC PO (14:59)
[2019-01-27] MEDS: Pantoprazole Sodium 40 MG Tablet PO (14:59)
[2019-01-27] MEDS: 0.9% NaCl Peripheral Flush Adult/Peds IV ×2 (14:59→17:03)
[2019-01-27] MEDS: Ondansetron 4 MG/2 ML Vial IV (17:03)
[2019-01-27 17:16] LABS: Bedside Glucose 185 mg/dL (70-110)
[2019-01-27] MEDS: Pramipexole Di-HCl 0.25 MG Tablet PO (22:04)
[2019-01-27] MEDS: Latanoprost 0.005% 1 Bottle 1 DRP EACH EYE (22:04)
[2019-01-27] MEDS: Gabapentin 300 MG Capsule PO (22:04)
[2019-01-27 22:15] LABS: Bedside Glucose 329 mg/dL (70-110)
[2019-01-28] VITALS (8 sets, daily range): BP systolic 114–135; BP diastolic 58–72; PULSE 71–98; RESP 15–20; TEMP 36.1–36.7; O2SAT 89–96
[2019-01-28 06:22] LABS: Absolute Neutrophil Count 5.8 X10^3/uL (2.0-7.7); Basophil# 0.04 X10^3/uL; Basophil% 0.5 % (0-1); Eosinophil# 0.26 X10^3/uL; Eosinophils% 3.5 % (0-5); Hematocrit 41.8 % (37-47); Hemoglobin 13.4 g/dL (12.0-15.0); Lymphocyte % 9.3 % (19-41); Mean Corp Hgb Conc 32.1 g/dL (32-36); Mean Corpuscular Hgb 32.5 pg (27.0-32.0); Mean Corpuscular Volume 101.5 fL (81-99); Mean Platelet Vol. 10.1 fl (6.2-12.0); Monocyte# 0.65 X10^3/uL; Monocyte% 8.6 % (0-10); NRBC Flagged by Analyzer 0.4 % (0-5); Neutrophil # 5.82 X10^3/uL (2.7-7.7); Neutrophil % 77.3 % (47-70); Platelet Count 153 K/mm3 (150-450); RBC Distribution Width CV 13.7 % (11.6-14.6); Red Blood Count 4.12 M/mm3 (4.2-5.4); White Blood Count 7.5 K/mm3 (4.4-11.0)
[2019-01-28 06:30] LABS: International Normalized Ratio 1.3; Prothrombin Time (Protime)PT. 15.5 SECONDS (11.7-14.9)
[2019-01-28] MEDS: Ondansetron 4 MG/2 ML Vial IV ×2 (06:38→14:15)
--- NOTE | 2019-01-28 06:42 | PCA ---
01/28/19 0642 weight change discussed with Ai POLLARD
[2019-01-28 06:45] LABS: ALB/GLOB Ratio 0.5 RATIO (0.9-2.4); AST(SGOT) 16 U/L (15-37); Alanine Aminotransfer ALT/SGPT 28 U/L (13-56); Albumin, Serum 2.4 g/dL (3.2-5.0); Alkaline Phosphatase 860 U/L (45-117); Anion Gap 10 (5-15); BUN 50 mg/dL (7-18); BUN/Creat Ratio 6.8 RATIO (10-20); Chloride 97 mmol/L (98-107); Creatinine, Serum 7.38 mg/dL (0.55-1.02); EST Glomerular Filtration Rate 6 mL/min (>60); Est Glom Filt Rate - Afr Amer 8 mL/min (>60); Estimated Creatinine Clearance 8.39 ml/min; Globulin 4.6 g/dL (2.2-4.2); Glucose 104 mg/dL (74-106); Potassium 4.2 mmol/L (3.5-5.1); Sodium Level 137 mmol/L (136-145)
[2019-01-28 06:51] LABS: Bedside Glucose 114 mg/dL (70-110)
[2019-01-28] MEDS: Midodrine HCl 5 MG Tablet 10 MG PO ×2 (06:51→15:19)
[2019-01-28] MEDS: oxyCODONE 5 MG Tablet PO ×2 (09:10→15:21)
[2019-01-28] MEDS: Allopurinol 100 MG Tablet 200 MG PO (09:11)
[2019-01-28] MEDS: Calcitriol 0.25 MCG Capsule 0.5 MCG PO (09:11)
[2019-01-28] MEDS: SEVELAMER CARBONATE 800 MG TABLET 1600 MG PO (09:11)
[2019-01-28] MEDS: Pantoprazole Sodium 40 MG Tablet PO (09:11)
[2019-01-28] MEDS: levoFLOXacin IV 500 MG/100 ML BAG 100 MG IV (09:12)
[2019-01-28] MEDS: Lidocaine 5% Patch 1 PATCH TOPICAL (09:15)
--- NOTE | 2019-01-28 10:19 | DCINST_ITS ---
- Discharge Diagnoses Current Active Problems: Current Active and Chronic Problems (Last Updated 01/24/19 @ 13:27 by Daniella Donald MD) Ascites (Acute) You will use the following diet at home:: Renal (restricted protein/sodium) Your food should be the consistency of: Regular Your liquids should be the consistency of: Regular/Thin Discharge Activity: Return to Normal Activity Instructions: Paracentesis, Understanding Liver Biopsy, Liver Biopsy Allergies/Adverse Reactions: Allergies Penicillins [PCN] Allergy (Verified 01/23/19 18:12) Hives Medications to take at Discharge Albuterol Inhaler [Ventolin Hfa] 2 puff INHALATION Q4H PRN PRN 10/28/16 Allopurinol [Zyloprim] 200 mg PO DAILY 10/28/16 Ergocalciferol [Vitamin D] 50,000 unit PO MO 10/28/16 Fluticasone 0.05% [Flonase Nasal [place]] 1 spray NASAL DAILY PRN 10/28/16 Gabapentin [Neurontin] 300 mg PO QHS 10/28/16 Latanoprost 0.005% [Xalatan Opthalmic] 1 drop EACH EYE QHS 10/28/16 Sevelamer Carbonate [Renvela] 800 mg PO TID 05/17/17 ALPRAZolam [Xanax] 0.5 mg PO TID PRN PRN 11/22/18 Ascorbic Acid [Vitamin C] 500 mg PO DAILY 11/22/18 Insulin Aspart [Novolog Flexpen] 0 units SUBCUT TID 11/22/18 Ropinirole HCl [Requip] 0.5 mg PO QHS 11/22/18 Vit B Comp No.3/Folic/C/Biotin [Nephro-Reggie Rx Tablet] 1 ea PO DAILY 11/22/18 Insulin Glargine [Lantus SoloStar Pen] 4 units SUBCUT QHS #0 01/08/19 Levofloxacin [Levaquin] 500 mg PO Q48H #2 tab 01/28/19 Midodrine HCl [Proamatine] 10 mg PO TID #90 tab 01/28/19 Ondansetron HCl [Zofran] 4 mg PO Q6H PRN PRN #20 tab 01/28/19 Pantoprazole Sodium [Protonix] 40 mg PO DAILY #30 tab 01/28/19 The following prescriptions were given: Levofloxacin [Levaquin] 500 mg PO Q48H #2 tab Transmission Status: Pending to [facility] Midodrine HCl [Proamatine] 10 mg PO TID #90 tab Transmission Status: Pending to [facility] Pantoprazole Sodium [Protonix] 40 mg PO DAILY #30 tab Transmission Status: Pending to [facility] Ondansetron HCl [Zofran] 4 mg PO Q6H PRN PRN #20 tab PRN Reason: Nausea Transmission Status: Pending to [facility] Primary Care Physician: Elijah Curtis MD [Primary Care Provider] - Please follow up with your Primary Care Physician in: 1-2 weeks Test Results: Test results from this visit will be discussed in further detail at your follow- up appointment, if applicable. Please Follow Up With: Bandar Dupree MD When: 1-2 weeks Please Follow Up With: Nia Cannon MD When: as directed Proposed Discharge Date: 01/28/19
--- NOTE | 2019-01-28 12:12 | CASEMGMT ---
This RN CM to room to discuss discharge plan with pt at this time. Pt states no concerns with going home at time of discharge and pt states no further concerns/needs at this time. Pt is currently getting dialysis and states does not have a ride until later today, Anastasiya POLLARD is aware. Klaus POLLARD CM
[2019-01-28 12:17] LABS: Cancer Antigen 125 27.7 U/mL (0.0-38.1)
--- NOTE | 2019-01-28 14:15 | DS.PCM_ITS ---
<Alex Roberts - Last Filed: 01/28/19 14:15> Discharge Date and Diagnosis - Problem List Patient Problems: Active and Suspected Problems (Last Updated 01/24/19 @ 13:27 by Daniella Donald MD) Ascites (Acute) Date of Admission: 01/23/19 Date of Discharge: 01/28/19 - Primary Discharge Diagnosis Active and Suspected Problems (Last Updated 01/24/19 @ 13:27 by Daniella Donald MD) Ascites unclear etiology Abnormal LFTs, unclear etiology ESRD DMt1 Depression and anxiety RLS - Secondary Discharge Diagnosis Chronic Problems (Last Updated 01/24/19 @ 13:27 by Daniella Donald MD) Abnormal LFTs (Chronic) End stage renal disease on dialysis (Chronic) Polyclonal gammopathy (Chronic) PAF (paroxysmal atrial fibrillation) (Chronic) Glaucoma (Chronic) Depression (Chronic) Hyperuricemia (Chronic) Hypertension (Chronic) DM type 1 (diabetes mellitus, type 1) (Chronic) Anemia (Chronic) Hospital Course and Treatment Imaging Results: DIAGNOSTICS: CT/Abdomen/Pelvis without Cont IMPRESSION: Very large amount of ascites fills and expands the peritoneal cavity, most of the fluid is within 2 large compartments as described above. The compartmentalization of the fluid suggests that it could potentially be loculated. Mild interstitial prominence lung bases likely mild edema. Evidence of chronic renal failure. RAD/Chest 1 View (Portable) IMPRESSION: Negative chest radiograph. Echo: Interpretation Summary Normal LV size. Left ventricular systolic function is normal. The estimated ejection fraction is 60 %. Stage 1 diastolic dysfunction. There is moderate mitral annular calcification. Mild (1+) eccentric mitral valve insufficiency. US/Paracentesis with US IMPRESSION: Ultrasound guided paracentesis. 6020 cc of brown fluid removed. Paracentesis #2 7600 cc of brown fluid removed. US/Liver IMPRESSION: Right renal atrophy. Ascites. US/Transvaginal Non- IMPRESSION: Large amount of ascites is seen in the lower abdomen and pelvis. Paracentesis - Path report - no malignant cells Operations: None Procedures: Paracentesis Summary of Care Provided: Hospital Course: The patient is a 48 year old F with pmhx of ESRD, anxiety/depression, RLS, who presented to the ER with c/o diffuse abdominal pain and distention. She had missed her last dialysis due to the pain. She had a CT abdomen showing a large amount of ascites. Her LFTs were markedly elevated, particularly her Alk phos, and GGT was elevated. This was noted to have been present on a prior lab in [facility] 2018, She had no history of any tylenol or alcohol use, she had no hx of hepatitis. There was no liver abnormality reported on the CT. She was admitted for ascites of unclear etiology. Venlafaxine was discontinued as a possible offending agent. Dialysis was partially performed but could not be completed due to hypotension. Midodrine was started. She underwent an initial paracentesis of over 6L of brown fluid. She was given albumin. BP remained controlled. Cytology showed elevated LDH. No malignant cells were seen on path. PTH was also elevated. Ca125 was normal. Albumin was low, Phos was elevated. Protein electrophoresis was sent and is pending. Rheumatic antibodies were sent - pending. Repeat Hepatitis panel sent - pending. She underwent a 2nd paracentesis with >7L removed. Transvaginal US and Liver US were obtained both showing ascites with no other reported abnormalities. Gen surgery did not recommend a liver bx at this time. We advised close follow up with GI - Dr. Dupree 1-2 weeks. She will also need to follow up with nephrology as directed, and with her PCP in 1-2 weeks. She was discharged home in stable condition. She will need to follow up with the results of the above pending labs with her PCP. This patient was seen by Alex Roberts PA-C under the supervision of Dr. Manuel [] Patient Problems: Active and Suspected Problems (Last Updated 01/24/19 @ 13:27 by Daniella Donald MD) Ascites (Acute) - Physical Exam General: Alert, Oriented x3, Cooperative HEENT: Atraumatic, PERRLA, EOMI, Normocephalic Neck: Supple, No JVD, Negative Carotid Bruits Lungs: Clear to auscultation, Normal air movement Cardiovascular: Regular rate, No murmurs Abdomen: Bowel Sounds Present, Soft, Non Tender, Distended - distention markedly decreased Extremities: No edema, Capillary Refill Less than 3 Seconds Skin: No rashes, No breakdown Musculoskeletal: No Tenderness to Palpation of Joints or Extremities Neurological: Cranial nerves II-XII grossly intact Psych/Mental Status: Normal Affect, Appropriate, Alert and oriented to time, place, person, mood and affect Vital Signs Temp Pulse Resp BP Pulse Ox 97.0 F L 93 18 114/67 96 01/28/19 09:15 01/28/19 09:15 01/28/19 09:15 01/28/19 09:15 01/28/19 09:15 Oxygen Flow Rate (L/min) [10] 2 Oxygen Flow Rate (L/min) [9] 2 Oxygen Flow Rate (L/min) [8] 2 Oxygen Flow Rate (L/min) [7] 2 Oxygen Flow Rate (L/min) [6] 2 Oxygen Flow Rate (L/min) [5] 2 Oxygen Flow Rate (L/min) [4] 2 Oxygen Flow Rate (L/min) [3] 3 Oxygen Flow Rate (L/min) [2] 2 Oxygen Delivery Method [10] Nasal Cannula Oxygen Delivery Method [9] Nasal Cannula Oxygen Delivery Method [8] Nasal Cannula Oxygen Delivery Method [7] Nasal Cannula Oxygen Delivery Method [6] Nasal Cannula Oxygen Delivery Method [5] Nasal Cannula Oxygen Delivery Method [4] Nasal Cannula Oxygen Delivery Method [3] Nasal Cannula Oxygen Delivery Method [2] Nasal Cannula Oxygen Delivery Method [1 ( Room Air Initial Baseline)] Oxygen Delivery Method Room Air Weight: 145 lb 4.554 oz Body Mass Index (BMI) 30.1 Finger Stick Blood Glucose 250 Intake and Output for Last 24 Hours 01/26/19 01/27/19 01/28/19 23:59 23:59 23:59 Intake Total 387.25 / 387.25 1240 / 1240 220 / 220 Output Total 8020 / 8020 7550 / 7550 Balance -7632.75 / -7632.75 -6310 / -6310 220 / 220 Microbiology Past 72 Hours 01/26/19 10:05 Gram Stain - Final Fluid - Peritoneal 01/26/19 10:05 Gram Stain - Final Aspirate - Other Laboratory Tests Past 24 Hrs 01/26/19 01/27/19 01/28/19 10:05 05:35 06:00 WBC 7.5 RBC 4.12 L Hgb 13.4 Hct 41.8 MCV 101.5 H MCH 32.5 H MCHC 32.1 RDW Std Deviation 51.0 H RDW Coeff of Tegan 13.7 Plt Count 153 MPV 10.1 Immature Gran % (Auto) 0.800 Neut % (Auto) 77.3 H Lymph % (Auto) 9.3 L [place] % (Auto) 8.6 Eos % (Auto) 3.5 Baso % (Auto) 0.5 Absolute Neuts (auto) 5.8 Absolute Lymphs (auto) 0.70 L Nucleated RBC % 0.4 PT INR Sodium Potassium Chloride Carbon Dioxide Anion Gap BUN Creatinine Estim Creat Clear Calc Est GFR (MDRD) Af Amer Est GFR (MDRD) Non-Af BUN/Creatinine Ratio Glucose Calcium Total Bilirubin AST ALT Alkaline Phosphatase Total Protein Albumin Globulin Albumin/Globulin Ratio CA 125 Antigen 27.7 Miscellaneous Test 01/28/19 01/28/19 06:00 06:00 WBC RBC Hgb Hct MCV MCH MCHC RDW Std Deviation RDW Coeff of Tegan Plt Count MPV Immature Gran % (Auto) Neut % (Auto) Lymph % (Auto) [place] % (Auto) Eos % (Auto) Baso % (Auto) Absolute Neuts (auto) Absolute Lymphs (auto) Nucleated RBC % PT 15.5 H INR 1.3 Sodium 137 Potassium 4.2 Chloride 97 L Carbon Dioxide 30.0 Anion Gap 10 BUN 50 H Creatinine 7.38 H Estim Creat Clear Calc 8.39 Est GFR (MDRD) Af Amer 8 L Est GFR (MDRD) Non-Af 6 L BUN/Creatinine Ratio 6.8 L Glucose 104 Calcium 9.0 Total Bilirubin 0.80 AST 16 ALT 28 Alkaline Phosphatase 860 H Total Protein 7.0 Albumin 2.4 L Globulin 4.6 H Albumin/Globulin Ratio 0.5 L CA 125 Antigen Miscellaneous Test POC Glucose 01/28/19 01/27/19 01/27/19 06:37 21:58 17:08 POC Glucose 114 H 329 H 185 H Discharge Diet: Renal Diet Discharge Activity: Return to Normal Activity Home Medications: Medications to take at Discharge Albuterol Inhaler [Ventolin Hfa] 2 puff INHALATION Q4H PRN PRN 10/28/16 Allopurinol [Zyloprim] 200 mg PO DAILY 10/28/16 Ergocalciferol [Vitamin D] 50,000 unit PO MO 10/28/16 Fluticasone 0.05% [Flonase Nasal [place]] 1 spray NASAL DAILY PRN 10/28/16 Gabapentin [Neurontin] 300 mg PO QHS 10/28/16 Latanoprost 0.005% [Xalatan Opthalmic] 1 drop EACH EYE QHS 10/28/16 Sevelamer Carbonate [Renvela] 800 mg PO TID 05/17/17 ALPRAZolam [Xanax] 0.5 mg PO TID PRN PRN 11/22/18 Ascorbic Acid [Vitamin C] 500 mg PO DAILY 11/22/18 Insulin Aspart [Novolog Flexpen] 0 units SUBCUT TID 11/22/18 Ropinirole HCl [Requip] 0.5 mg PO QHS 11/22/18 Vit B Comp No.3/Folic/C/Biotin [Nephro-Reggie Rx Tablet] 1 ea PO DAILY 11/22/18 Insulin Glargine [Lantus SoloStar Pen] 4 units SUBCUT QHS #0 01/08/19 Levofloxacin [Levaquin] 500 mg PO Q48H #2 tab 01/28/19 Midodrine HCl [Proamatine] 10 mg PO TID #90 tab 01/28/19 Ondansetron HCl [Zofran] 4 mg PO Q6H PRN PRN #20 tab 01/28/19 Pantoprazole Sodium [Protonix] 40 mg PO DAILY #30 tab 01/28/19 Following Prescrptions Were Given to Patient: Levofloxacin [Levaquin] 500 mg PO Q48H #2 tab Transmission Status: Received by [facility] Midodrine HCl [Proamatine] 10 mg PO TID #90 tab Transmission Status: Received by [facility] Pantoprazole Sodium [Protonix] 40 mg PO DAILY #30 tab Transmission Status: Received by [facility] Ondansetron HCl [Zofran] 4 mg PO Q6H PRN PRN #20 tab PRN Reason: Nausea Transmission Status: Received by [facility] Primary Care Physician: Elijah Curtis MD [Primary Care Provider] - Please follow up with your Primary Care Physician in: 1-2 weeks Please Follow Up With: Bandar Dupree MD When: 1-2 weeks Please Follow Up With: Nia Cannon MD When: as directed Please Follow Up With: Elijah Curtis MD Patient Instructions: Paracentesis, Understanding Liver Biopsy, Liver Biopsy Disposition: Home Minutes spent on discharge:: 35 Patient Condition:: Stable Medical Necessity - Tobacco Use Smoking Status: Former smoker Meaningful Use Info Meaningful Use Diagnoses (Choose all that apply): None applicable <Ariane Manuel - Last Filed: 01/28/19 17:05> Discharge Date and Diagnosis - Primary Discharge Diagnosis Active and Suspected Problems (Last Updated 01/24/19 @ 13:27 by Daniella Donald MD) Ascites (Acute) - Secondary Discharge Diagnosis Chronic Problems (Last Updated 01/24/19 @ 13:27 by Daniella Donald MD) Abnormal LFTs (Chronic) End stage renal disease on dialysis (Chronic) Polyclonal gammopathy (Chronic) PAF (paroxysmal atrial fibrillation) (Chronic) Glaucoma (Chronic) Depression (Chronic) Hyperuricemia (Chronic) Hypertension (Chronic) DM type 1 (diabetes mellitus, type 1) (Chronic) Anemia (Chronic) Hospital Course and Treatment Summary of Care Provided: Patient seen by Alex Roberts PA-C under my supervision. The patient is a 48 year old F with a PMH as listed above. She was admitted through the ED on 01/23/2019 with a complaint of constant diffuse abdominal pain for 2 days prior to admission. Symptoms started at her last dialysis. She also noted that her abdomen had become more distended and this worsened. Abdominal distention advocated over just a few days prior to admission. She missed dialysis on account of the abdominal pain. On admission, abdominopelvic CT showed very large amount of ascites which are loculated and mild interstitial prominence of lung bases. She was admitted and managed for massive ascites of unknown etiology. On admission, her LFTs were markedly elevated bili her alkaline phosphatase and GGT with alkaline phosphatase pain over thousand. Initial bilirubin was also elevated at 2.2 but gradually trended down as well as the AST and ALT which were mildly elevated. Review of labs show that patient had elevated LFTs especially the ALP and GGT since 2017. She denied any history of alcohol Tylenol abuse and had no history of hepatitis. Hepatitis screen done was negative. She was started on dialysis but could not complete on account of hypotension and therefore had to be started on Midodrin. Patient had initial paracentesis with drainage of 6 L of turbid fluid on 01/26/2019. She received 25 g of albumin after removal of the 6 L. Ascitic fluid cytology was negative for any malignant cells. However total cell count was over 2400 with polymorphonuclear cell count around 95% and neutrophils are 91%. She was therefore started on IV Levaquin. Of note, patient was allergic to penicillins and so could not take ceftriaxone. SAAG could not be calculated as ascitic albumin was a send out test and this was still pending at time of discharge. Ca1 to 5 was checked and was normal. Liver ultrasound done showed no pathology in the liver was negative for cirrhosis and transvaginal ultrasound done also showed nonvisualized ovaries. Of note, CT abdomen showed normal ovaries. Patient had had an abdominal hysterectomy on account of excessive bleeding and suspicion for endometrial cancer but states that her ovaries were left intact. General surgery was consulted but recommended conservative management for now and did not recommend a liver biopsy at this time. Patient had a repeat thoracentesis on 01/27/2019 with removal of 7.6 L of fluid. Based on persistently elevated ALP and GGT, and absence of any liver pathology, there was a suspicion of primary biliary cholangitis. Rheumatologic panel was sent as well as anti-smooth muscle antibody and night antimitochondrial antibodies. Th abdoulaye were still pending at time of discharge. Patient did improve significantly and wanted to go home. He was discharged home on 01/28/2019. She was given a prescription for p.o. Levaquin every 48 hours with dialysis for 2 more doses. Ascitic fluid culture was done and was pending at time of discharge. She was referred to Dr Huy PINEDO, and advised on close follow up. She is to follow-up with her primary care doctor within 1 week and also to follow-up with GI within 1 to 2 weeks. Patient counseled that she would likely need repeat therapeutic paracentesis if ascites re-accumulates. Patient seen and examined prior to discharge. She had no complaints and felt much better. Review of systems otherwise negative. Labs and vitals reviewed. Home medication reviewed and reconciled. o/e: Vital Signs Height 5 ft 5 in Weight: 145 lb 4.554 oz Weight in Pounds 145.3 lbs Pulse Ox 94 Temperature 97.6 F Pulse Rate [10] 84 Pulse Rate [9] 82 Pulse Rate [8] 82 Pulse Rate [7] 81 Pulse Rate [6] 82 Pulse Rate [5] 81 Pulse Rate [4] 80 Pulse Rate [3] 81 Pulse Rate [2] 81 Pulse Rate [1 (Initial 83 Baseline)] Pulse Rate 87 Respiratory Rate [10] 20 Respiratory Rate [9] 20 Respiratory Rate [8] 18 Respiratory Rate [7] 18 Respiratory Rate [6] 18 Respiratory Rate [5] 16 Respiratory Rate [4] 18 Respiratory Rate [3] 14 Respiratory Rate [2] 16 Respiratory Rate [1 (Initial 18 Baseline)] Respiratory Rate 18 Blood Pressure [10] 133/69 Blood Pressure [9] 133/74 Blood Pressure [8] 136/72 Blood Pressure [7] 142/73 Blood Pressure [6] 132/68 Blood Pressure [5] 127/67 Blood Pressure [4] 132/70 Blood Pressure [3] 127/68 Blood Pressure [2] 131/70 Blood Pressure [1 (Initial 131/68 Baseline)] Blood Pressure 121/64 Blood Pressure Position Sitting []General: Alert, Oriented x3, Cooperative, looks frail HEENT: Atraumatic, PERRLA, EOMI, Normocephalic Neck: Supple, No JVD, Negative Carotid Bruits Lungs: Clear to auscultation, Normal air movement Cardiovascular: Regular rate, No murmurs Abdomen: Bowel Sounds Present, minimal tenderness, no organomegaly; soft, Extremities: No edema, Capillary Refill Less than 3 Seconds Skin: No rashes, No breakdown Musculoskeletal: No Tenderness to Palpation of Joints or Extremities Neurological: Cranial nerves II-XII grossly intact Psych/Mental Status: Normal Affect, Appropriate, Alert and oriented to time, place, person, mood and affect REst of management as per Alex Roberts's note, which I have reviewed and endorsed. - Physical Exam Vital Signs Temp Pulse Resp BP Pulse Ox 97.6 F L 87 18 121/64 H 94 01/28/19 15:15 01/28/19 15:16 01/28/19 15:15 01/28/19 15:15 01/28/19 15:15 Oxygen Flow Rate (L/min) [10] 2 Oxygen Flow Rate (L/min) [9] 2 Oxygen Flow Rate (L/min) [8] 2 Oxygen Flow Rate (L/min) [7] 2 Oxygen Flow Rate (L/min) [6] 2 Oxygen Flow Rate (L/min) [5] 2 Oxygen Flow Rate (L/min) [4] 2 Oxygen Flow Rate (L/min) [3] 3 Oxygen Flow Rate (L/min) [2] 2 Oxygen Delivery Method [10] Nasal Cannula Oxygen Delivery Method [9] Nasal Cannula Oxygen Delivery Method [8] Nasal Cannula Oxygen Delivery Method [7] Nasal Cannula Oxygen Delivery Method [6] Nasal Cannula Oxygen Delivery Method [5] Nasal Cannula Oxygen Delivery Method [4] Nasal Cannula Oxygen Delivery Method [3] Nasal Cannula Oxygen Delivery Method [2] Nasal Cannula Oxygen Delivery Method [1 ( Room Air Initial Baseline)] Oxygen Delivery Method Room Air Weight: 145 lb 4.554 oz Body Mass Index (BMI) 30.1 Finger Stick Blood Glucose 250 Intake and Output for Last 24 Hours 01/26/19 01/27/19 01/28/19 23:59 23:59 23:59 Intake Total 387.25 / 387.25 1240 / 1240 220 / 220 Output Total 8020 / 8020 7550 / 7550 Balance -7632.75 / -7632.75 -6310 / -6310 220 / 220 Microbiology Past 72 Hours 01/26/19 10:05 Gram Stain - Final Fluid - Peritoneal 01/26/19 10:05 Gram Stain - Final Aspirate - Other Laboratory Tests Past 24 Hrs 01/26/19 01/27/19 01/28/19 10:05 05:35 06:00 WBC 7.5 RBC 4.12 L Hgb 13.4 Hct 41.8 MCV 101.5 H MCH 32.5 H MCHC 32.1 RDW Std Deviation 51.0 H RDW Coeff of Tegan 13.7 Plt Count 153 MPV 10.1 Immature Gran % (Auto) 0.800 Neut % (Auto) 77.3 H Lymph % (Auto) 9.3 L [place] % (Auto) 8.6 Eos % (Auto) 3.5 Baso % (Auto) 0.5 Absolute Neuts (auto) 5.8 Absolute Lymphs (auto) 0.70 L Nucleated RBC % 0.4 PT INR Sodium Potassium Chloride Carbon Dioxide Anion Gap BUN Creatinine Estim Creat Clear Calc Est GFR (MDRD) Af Amer Est GFR (MDRD) Non-Af BUN/Creatinine Ratio Glucose Calcium Total Bilirubin AST ALT Alkaline Phosphatase Total Protein Albumin Globulin Albumin/Globulin Ratio CA 125 Antigen 27.7 Miscellaneous Test 01/28/19 01/28/19 06:00 06:00 WBC RBC Hgb Hct MCV MCH MCHC RDW Std Deviation RDW Coeff of Tegan Plt Count MPV Immature Gran % (Auto) Neut % (Auto) Lymph % (Auto) [place] % (Auto) Eos % (Auto) Baso % (Auto) Absolute Neuts (auto) Absolute Lymphs (auto) Nucleated RBC % PT 15.5 H INR 1.3 Sodium 137 Potassium 4.2 Chloride 97 L Carbon Dioxide 30.0 Anion Gap 10 BUN 50 H Creatinine 7.38 H Estim Creat Clear Calc 8.39 Est GFR (MDRD) Af Amer 8 L Est GFR (MDRD) Non-Af 6 L BUN/Creatinine Ratio 6.8 L Glucose 104 Calcium 9.0 Total Bilirubin 0.80 AST 16 ALT 28 Alkaline Phosphatase 860 H Total Protein 7.0 Albumin 2.4 L Globulin 4.6 H Albumin/Globulin Ratio 0.5 L CA 125 Antigen Miscellaneous Test POC Glucose 01/28/19 01/28/19 01/27/19 16:22 06:37 21:58 POC Glucose 180 H 114 H 329 H 01/27/19 17:08 POC Glucose 185 H Code Visit Inpatient E&M: 04382 Disch Hosp
[2019-01-28] MEDS: Morphine 2 MG/ML Syringe IV (14:23)
[2019-01-28] MEDS: 0.9% NaCl Peripheral Flush Adult/Peds IV (14:23)
--- NOTE | 2019-01-28 14:29 | NURSING ---
Read and reviewed SN documentation
--- NOTE | 2019-01-28 15:01 | PN.RENAL_ITS ---
Patient Problems: Active and Suspected Problems (Last Updated 01/24/19 @ 13:27 by Daniella Donald MD) Ascites (Acute) Subjective: Pt had HD session earlier today . she tolerated it well No nausea No vomiting. No SOB - Physical Exam General: Alert, Oriented x3 HEENT: Atraumatic Oral: Moist Mucosa Neck: Supple, No JVD Lungs: Clear to auscultation, Normal air movement, No rhonchi, No wheeze Cardiovascular: Regular rate, Regular Rhythm, Normal S1, Normal S2 Abdomen: Bowel Sounds Present, Soft, Non Tender, Non-Distended Extremities: No clubbing, No cyanosis, No edema Skin: No rashes Musculoskeletal: No Tenderness to Palpation of Joints or Extremities Lymphatic: No Cervical, Supraclavicular, or Inguinal Adenopathy Neurological: Cranial nerves II-XII grossly intact, Neuro grossly intact Psych/Mental Status: Appropriate Vital Signs Temp Pulse Resp BP Pulse Ox 97.0 F L 93 18 114/67 96 01/28/19 09:15 01/28/19 09:15 01/28/19 09:15 01/28/19 09:15 01/28/19 09:15 Oxygen Flow Rate (L/min) [10] 2 Oxygen Flow Rate (L/min) [9] 2 Oxygen Flow Rate (L/min) [8] 2 Oxygen Flow Rate (L/min) [7] 2 Oxygen Flow Rate (L/min) [6] 2 Oxygen Flow Rate (L/min) [5] 2 Oxygen Flow Rate (L/min) [4] 2 Oxygen Flow Rate (L/min) [3] 3 Oxygen Flow Rate (L/min) [2] 2 Oxygen Delivery Method [10] Nasal Cannula Oxygen Delivery Method [9] Nasal Cannula Oxygen Delivery Method [8] Nasal Cannula Oxygen Delivery Method [7] Nasal Cannula Oxygen Delivery Method [6] Nasal Cannula Oxygen Delivery Method [5] Nasal Cannula Oxygen Delivery Method [4] Nasal Cannula Oxygen Delivery Method [3] Nasal Cannula Oxygen Delivery Method [2] Nasal Cannula Oxygen Delivery Method [1 ( Room Air Initial Baseline)] Oxygen Delivery Method Room Air Weight: 65.9 kg Body Mass Index (BMI) 30.1 Finger Stick Blood Glucose 250 Intake and Output for Last 24 Hours 01/26/19 01/27/19 01/28/19 23:59 23:59 23:59 Intake Total 387.25 / 387.25 1240 / 1240 220 / 220 Output Total 8020 / 8020 7550 / 7550 Balance -7632.75 / -7632.75 -6310 / -6310 220 / 220 Microbiology Past 72 Hours 01/26/19 10:05 Gram Stain - Final Fluid - Peritoneal 01/26/19 10:05 Gram Stain - Final Aspirate - Other Laboratory Tests Past 24 Hrs 01/26/19 01/27/19 01/28/19 10:05 05:35 06:00 WBC 7.5 RBC 4.12 L Hgb 13.4 Hct 41.8 MCV 101.5 H MCH 32.5 H MCHC 32.1 RDW Std Deviation 51.0 H RDW Coeff of Tegan 13.7 Plt Count 153 MPV 10.1 Immature Gran % (Auto) 0.800 Neut % (Auto) 77.3 H Lymph % (Auto) 9.3 L [place] % (Auto) 8.6 Eos % (Auto) 3.5 Baso % (Auto) 0.5 Absolute Neuts (auto) 5.8 Absolute Lymphs (auto) 0.70 L Nucleated RBC % 0.4 PT INR Sodium Potassium Chloride Carbon Dioxide Anion Gap BUN Creatinine Estim Creat Clear Calc Est GFR (MDRD) Af Amer Est GFR (MDRD) Non-Af BUN/Creatinine Ratio Glucose Calcium Total Bilirubin AST ALT Alkaline Phosphatase Total Protein Albumin Globulin Albumin/Globulin Ratio CA 125 Antigen 27.7 Miscellaneous Test 01/28/19 01/28/19 06:00 06:00 WBC RBC Hgb Hct MCV MCH MCHC RDW Std Deviation RDW Coeff of Tegan Plt Count MPV Immature Gran % (Auto) Neut % (Auto) Lymph % (Auto) [place] % (Auto) Eos % (Auto) Baso % (Auto) Absolute Neuts (auto) Absolute Lymphs (auto) Nucleated RBC % PT 15.5 H INR 1.3 Sodium 137 Potassium 4.2 Chloride 97 L Carbon Dioxide 30.0 Anion Gap 10 BUN 50 H Creatinine 7.38 H Estim Creat Clear Calc 8.39 Est GFR (MDRD) Af Amer 8 L Est GFR (MDRD) Non-Af 6 L BUN/Creatinine Ratio 6.8 L Glucose 104 Calcium 9.0 Total Bilirubin 0.80 AST 16 ALT 28 Alkaline Phosphatase 860 H Total Protein 7.0 Albumin 2.4 L Globulin 4.6 H Albumin/Globulin Ratio 0.5 L CA 125 Antigen Miscellaneous Test POC Glucose 01/28/19 01/27/19 01/27/19 06:37 21:58 17:08 POC Glucose 114 H 329 H 185 H Medical Necessity - Tobacco Use Smoking Status: Former smoker Assessment/Plan All Active Problems (Last Updated 01/24/19 @ 13:27 by Daniella Donald MD) Ascites (Acute) 1-end-stage renal disease on Saturday hemodialysis schedule. Patient goes to [facility]. 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 Had HD session today. tolerated well Hemodialysis access is left upper extremity AV fistula. 2-anemia: Hemoglobin more than 11. No need for KME. 3-bone mineral disease. Patient is on sevelamer. P is 6.4. Will increase sevelamer dose PTH is elevated > 400. Will start calcitriol 0.5 mcg PO daily 4-hypotension:Better with Midodrine. Continue Midodrine 10 mg 3 times daily to help removing fluid. 5-ascites. New onset. Unclear etiology. Pt had paracentesis X 2 with 13 L fluid removal. Thank you for allowing me to participate in Ms. Galdamez's care. Please call if any question concern at [phone]. Plan of care was discussed with nurse practitioner Alex Roberts. NANNETTE DURHAM MD
[2019-01-28 16:26] LABS: Bedside Glucose 180 mg/dL (70-110)
--- NOTE | 2019-01-28 17:21 | DIALYSIS ---
Pt tolerated 4hr HD tx well, w/ some drop in SBP with UF, resolved w/ NS rinse and 12.5gms albumin IVPB. Net UF even. See flow record for tx data.
--- NOTE | 2019-01-29 13:51 | CASEMGMT ---
Case Management DC F/u Call: DC Date: 01/28/19 DC Diagnosis: Ascites unclear etiology, Abnormal LFTs, unclear etiology, ESRD, DMt1, Depression and anxiety, RLS DC Disposition: Home LACE/STRATA: 01/09 Attempted to call patient Cell number listed in Demographics, no answer and VM box has not been set up yet. Tavia Rodriguez RNCM
[2019-01-29 14:08] LABS: Albumin 2.8 g/dL (2.9-4.4); Alpha-1-Globulins 0.4 g/dL (0.0-0.4); Alpha-2-Globulins 0.8 g/dL (0.4-1.0); Gamma Globulin 1.2 g/dL (0.4-1.8); Immunoglobulin A 283 mg/dL (87-352); Immunoglobulin G 1235 mg/dL (700-1600); Immunoglobulin M 34 mg/dL (26-217); PROEL- TOTAL PROTEIN 5.9 g/dL (6.0-8.5)
[2019-02-02 12:37] LABS: Anti-Smooth Muscle ABS 6 Units (0-19)
[2019-02-02 12:38] LABS: IMMUNOFIXATION RESULT,S Comment: (.)
[2019-02-02 12:55] LABS: ANTINUCLEAR ANTIBODIES DIRECT Negative (Negative); Anti-Mitochondrial AB <20.0 Units (0.0-20.0)
== END 2019-01-28 17:45 | disposition home or self-care (01) | DRG 947 ==
LOC: ED 19:14 → PCU 22:33
PROVIDERS: Hospitalist; Internal Medicine Nephrology; Physician Assistant; Surgery; Admitting Provider Hospitalist; Emergency Provider Emergency Medicine; Family Provider Family Medicine; PCP Family Medicine; Referring Provider Hospitalist; Visit Provider Student in an Organized Health Care Education/Training Program
DX: R18.8 Other ascites (principal); N18.6 End stage renal disease; I12.0 Hypertensive chronic kidney disease with stage 5 chronic kidney disease or end stage renal disease; E10.22 Type 1 diabetes mellitus with diabetic chronic kidney disease; I48.0 Paroxysmal atrial fibrillation; R74.8 Abnormal levels of other serum enzymes; H40.9 Unspecified glaucoma; F32.9 Major depressive disorder, single episode, unspecified; E79.0 Hyperuricemia without signs of inflammatory arthritis and tophaceous disease; F41.9 Anxiety disorder, unspecified; G25.81 Restless legs syndrome; E87.5 Hyperkalemia; D89.0 Polyclonal hypergammaglobulinemia; I95.9 Hypotension, unspecified; D64.9 Anemia, unspecified; Z99.2 Dependence on renal dialysis; Z79.4 Long term (current) use of insulin; Z88.0 Allergy status to penicillin; Z90.710 Acquired absence of both cervix and uterus; Z90.49 Acquired absence of other specified parts of digestive tract
CPT/HCPCS: 36415; 49083; 71045; 74176; 76705; 76830; 80048; 80053; 80074; 82140; 82784; 82945; 82962; 82977; 83516; 83615; 83690; 83970; 84100; 84157; 84165; 84484; 85025; 85610; 85730; 86038; 86225; 86235; 86304; 86334; 87070; 87075; 87205; 88108; 88305; 88313; 89050; 90937; 93005; 93306; 97162; 97165; 97535; 99285; J7030; J7050; P9047; Q9957; A4216; G0257; J2405

== ENCOUNTER 2019-02-16 14:39 | Inpatient (IN) | payer MEDICARE, OTHER, MEDICAID, SELFPAY ==
[2019-01-23 22:53] VITALS: BMI 30.1
[2019-02-16] VITALS (11 sets, daily range): BP systolic 131–199; BP diastolic 79–114; PULSE 86–96; RESP 16–21; TEMP 36.6; O2SAT 92–99; BMI 24.6; BMI 32.1
--- NOTE | 2019-02-16 14:52 | RAD_ITS ---
STUDY: X-RAY CHEST REASON FOR EXAM: Female, 48 years old. Edema TECHNIQUE: Frontal view of the chest COMPARISON: 01/23/2019 FINDINGS: The lungs are clear. There are no pleural effusions. There is no pneumothorax. The heart is normal in size. The visualized osseous structures are within normal limits. RAD/Chest 1 View (Portable) IMPRESSION: No acute thoracic pathology. Electronically Signed: Attila Swartz, at 15:15 EDT Tel , Service support ,
--- NOTE | 2019-02-16 14:53 | EKG12_ITS ---
Test Reason : EDEMA Blood Pressure : / mmHG Vent. Rate : 086 BPM Atrial Rate : 086 BPM P-R Int : 218 ms QRS Dur : 102 ms QT Int : 418 ms P-R-T Axes : 041 -16 108 degrees QTc Int : 500 ms Sinus rhythm with 1st degree A-V block Cannot rule out Anterior infarct (cited on or before 23-JAN-2019) T wave abnormality, consider lateral ischemia Prolonged QT Abnormal ECG Confirmed by ABIMBOLA JEREZ, SID ([id number]), editor school photograph ADRIENNE ROACH ([id number]) on 02/18/2019 12:29:17 PM Referred By: Quynh Diaz Confirmed By:SID DAILY MD
--- NOTE | 2019-02-16 15:15 | ED.DCSUM_ITS ---
History of Present Illness Narrative: 38-year-old female with past medical history of end-stage renal disease, type 1 diabetes, hypertension presents with concern for malaise and edema. Patient states that she has had worsening abdominal edema over the past 2 weeks. States that she was seen at this hospital as well as at [facility]. She is to follow-up with a diamond sawer to have her liver further examined. States that she has missed 2 dialysis appointments. Patient gets dialysis on Saturday and Saturday. Denies any chest pain or shortness of breath. Denies any nausea, vomiting. Patient states that when she was admitted at [facility] her sugar was over 1000. <Rahul Funes - Last Filed: 02/16/19 19:29> <Sacha Banegas - Last Filed: 02/16/19 22:10> Chief Complaint: Edema Past Medical History Prior records reviewed: Yes Past Medical History: - - End-stage renal disease, type 1 diabetes, hypertension Surgical History: cholecystectomy, hysterectomy, tonsillectomy, - - PD catheter placement, tunneled dialysis catheter placement, AVF 06/08/17. Smoking Status: Former smoker - Family History Maternal Family History: Reports: Cancer - Thyroid cancer and lung cancer, Diabetes, Heart Disease Paternal Family History: Reports: Diabetes, Heart Disease <Rahul Funes - Last Filed: 02/16/19 19:29> <Sacha Banegas - Last Filed: 02/16/19 22:10> - Allergies and Home Meds Allergies/Adverse Reactions: Allergies levothyroxine sodium [From Synthroid] Allergy (Verified 02/16/19 15:14) Swelling Penicillins [PCN] Allergy (Verified 02/16/19 14:42) Hives Review of Systems General: Reports: Malaise. Denies: Chills, Fever, Sweats Eyes: Denies: Visual changes - bilaterally, Diplopia ENT: Denies: Rhinorrhea, Sore throat Cardiovascular: Denies: Chest pain, Palpitations Respiratory: Denies: Dyspnea, Cough, Dyspnea on exertion Gastrointestinal: Reports: - - Abdominal swelling. Denies: Abdominal pain, Nausea, Vomiting, Diarrhea, Melena, Hematochezia Genitourinary: Denies: Dysuria, Hematuria, Frequency Musculoskeletal: Denies: Back pain, Extremity Pain Skin: Denies: Rash, Wounds Neurological: Denies: Headache, Weakness, Numbness <Rahul Funes - Last Filed: 02/16/19 19:29> Physical Exam Vital Signs/Narrative: Vital Signs Temp Pulse Resp BP Pulse Ox 02/16/19 14:40 98 F 88 16 154/79 H 96 Inital Vital Signs reviewed: Yes General: Well nourished, Well developed, No Acute Distress Head: Normocephalic, Atraumatic Eyes: Perrl, EOMI ENT: Moist mucous membranes, No rhinorrhea Neck: Supple, Nontender Cardiovascular: Regular rate, Regular rhythm, No murmurs Respiratory: No distress, CTA bilaterally, Chest nontender Abdomen: Soft, Nontender, Nondistended, Normal bowel sounds Back: Nontender, Normal Inspection Extremities: Nontender, No edema Skin: Normal color, No rash, - - Left upper extremity AV fistula with palpable thrill. Neurological: Alert, Oriented x3, Cranial nerves II-XII grossly intact, Normal Strength, Normal Sensation Psychological: Normal affect, Normal Mood <Rahul Funes - Last Filed: 02/16/19 19:29> Diagnostic/Tx/Re-eval Chest X-Ray - ED: 1 View, No Acute Disease - Rhythm Strip Rhythm Strip: Sinus Rhythm Rate: 86 - EKG Initial EKG Interpretation: - - Normal sinus rhythm at 86 bpm. First-degree AV block with ME interval 218 ms. QTc of 500 ms. T wave inversion in lead I, aVL. No evidence of ST elevation or depression. - Medical Decision Making Patient appears well and nontoxic. Vital signs within normal limits. Patient's abdomen is fairly benign on exam. Lab work shows significant hyperkalemia as well as hyperglycemia. Patient was given Kayexalate, insulin, bicarbonate, and calcium gluconate. EKG shows no significant changes. Indeterminate troponin which is at baseline. Spoke with hospitalist who is agreeable with admission. Patient subsequently lost IV access and right femoral triple-lumen central line was placed without difficulty. Patient admitted in stable condition. - Critical Care Time Critical care time (excluding procedures): 30-74 minutes, Discussing w/Patient &/or Family/Martial Arts Instructor, Discussing w/Consultants, Arranging Admission or Transfer, Performing Direct Patient Care at Bedside <Rahul Funes - Last Filed: 02/16/19 19:29> - Medical Decision Making Patient has end-stage renal disease. She has missed her last 2 dialysis sessions. She is being evaluated for abdominal swelling. No other associated symptoms. Patient is resting on exam. Awakens to voice. No acute distress. Lungs clear. Heart regular. Abdomen slightly distended but nontender. Moves all extremities. EKG, labs, chest x-ray, discussed with hospitalist and nephrology. Admit. <Sacha Banegas - Last Filed: 02/16/19 22:10> Procedures Procedure(s): Right femoral triple-lumen placed without difficulty. Sterile procedure followed. Anesthetization done locally with lidocaine. Blood return all ports. Sterile dressing applied. Done under ultrasound guidance. <Rahul Funes - Last Filed: 02/16/19 19:29> ED Disposition <Rahul Funes - Last Filed: 02/16/19 19:29> <Sacha Banegas - Last Filed: 02/16/19 22:10> - Plan for ED Patient: Disposition: Home or Assisted Living Diagnosis: Hyperkalemia, Hyperglycemia, Ascites
--- NOTE | 2019-02-16 15:24 | ED.RN ---
attempt x 2 by this nurse. unsuccessful
[2019-02-16 15:41] LABS: Absolute Lymphocyte Count 0.57 X10^3/uL (0.83-4.51); Absolute Neutrophil Count 4.2 X10^3/uL (2.0-7.7); Basophil# 0.03 X10^3/uL; Basophil% 0.5 % (0-1); Eosinophil# 0.26 X10^3/uL; Eosinophils% 4.7 % (0-5); Hemoglobin 9.1 g/dL (12.0-15.0); Lymphocyte # 0.57 X10^3/ul (4.0); Lymphocyte % 10.3 % (19-41); Mean Corp Hgb Conc 31.4 g/dL (32-36); Mean Corpuscular Hgb 31.4 pg (27.0-32.0); Mean Platelet Vol. 11.4 fl (6.2-12.0); Monocyte% 7.3 % (0-10); NRBC Flagged by Analyzer 0 % (0-5); Neutrophil # 4.21 X10^3/uL (2.7-7.7); Neutrophil % 76.5 % (47-70); POSITIVE DIFFERENTIAL YES; Platelet Count 152 K/mm3 (150-450); RBC Distribution Width CV 12.8 % (11.6-14.6); RBC Distribution Width SD 46.4 fl (35.1-43.9); White Blood Count 5.5 K/mm3 (4.4-11.0)
[2019-02-16 15:42] LABS: Differential Indicated SCAN CRITERIA MET
[2019-02-16 15:57] LABS: Differential Comment SCANNED
[2019-02-16 16:25] LABS: ALB/GLOB Ratio 0.5 RATIO (0.9-2.4); AST(SGOT) 34 U/L (15-37); Alanine Aminotransfer ALT/SGPT 19 U/L (13-56); Albumin, Serum 2.4 g/dL (3.2-5.0); Alkaline Phosphatase 262 U/L (45-117); Anion Gap 11 (5-15); BUN 67 mg/dL (7-18); BUN/Creat Ratio 8.7 RATIO (10-20); Calcium,Total 7.5 mg/dL (8.5-10.1); Chloride 92 mmol/L (98-107); Creatinine, Serum 7.68 mg/dL (0.55-1.02); EST Glomerular Filtration Rate 6 mL/min (>60); Est Glom Filt Rate - Afr Amer 7 mL/min (>60); Estimated Creatinine Clearance 8.06 ml/min; Globulin 4.6 g/dL (2.2-4.2); Glucose 636 mg/dL (74-106); Lipase 211 U/L (73-393); Potassium 7.5 mmol/L (3.5-5.1); Sodium Level 125 mmol/L (136-145)
--- NOTE | 2019-02-16 16:25 | ED.RN ---
CRITICAL LABS PER LAB CALL, MD AND PRIMARY RN AWARE.
--- NOTE | 2019-02-16 16:39 | ED.RN ---
PT WAS RESTING IN BED, PLACED ON KILN FURNITURE CASTER, PULSE OX 71-76% PLACED ON 4L NASAL CANULA, PULSE IMPROVED TO 97%.
[2019-02-16] MEDS: Sodium Polystyrene Sulfonate 15 GM/60 ML UDC 45 GM PO (17:40)
[2019-02-16] MEDS: Calcium Gluconate 1 GM/10 ML Vial IV (17:40)
[2019-02-16] MEDS: Sodium Bicarbonate 8.4% 50 ML Syringe 50 MEQ IV (17:40)
[2019-02-16] MEDS: Insulin Lispro 5 UNIT in Syringe 0 ML 3 UNIT IV (17:40)
[2019-02-16] MEDS: Morphine 2 MG/ML Syringe IV (18:04)
--- NOTE | 2019-02-16 18:07 | PCM.HP.STD ---
Problem List (1) Hyperkalemia Status: Acute (2) Hyperglycemia Status: Acute (3) Ascites Status: Acute Qualifiers: Ascites type: malignant Qualified Code(s): R18.0 - Malignant ascites (4) End stage renal disease on dialysis Status: Chronic (5) PAF (paroxysmal atrial fibrillation) Status: Chronic History of Present Illness Date of Admission: 02/16/19 Chief Complaint: Shortness of breath - 3 days. Abdominal pain- 3 days The patient is a 48 year old F with past medical history of ESRD on hemodialysis, recently admitted and discharged with ascites at the time of unclear etiology on 01/28/19. Since her discharge, patient has been admitted in the [facility] and work-up has shown malignant ascites. We will ask for records from the [facility]. Patient was discharged from the [facility] 5 days ago and her work-up had included ascites and hyperglycemia. Her blood glucose at that time was more than 1000. She missed a dialysis on Saturday because she did not feel well. She comes in with progressive shortness of breath as well as increased abdominal girth. She denied any chest pain but admits to dizziness but no palpitations. Denied any fever or chills. She admits to abdominal pain. Vitals in the ED showed temperature of 98F, heart rate 88, blood pressure 154/79, respiratory rate was 16, SPO2 was 96% on room air. Admitting blood work showed WBC count of 5.5, hemoglobin 9.1, down from 13.4, platelet count was 152, sodium 125, potassium 7.5, chloride 92, bicarbonate 22, BUN 67, creatinine 7.68, glucose 636, AST and ALT is unremarkable, ALP is 262. Ammonia is 17, troponin 0.051, Lipase 211. Admitting chest x-ray showed no acute thoracic pathology. Past Medical History Past Medical History (Chronic Problems): Chronic Problems (Last Updated 01/24/19 @ 13:27 by Daniella Donald MD) Abnormal LFTs (Chronic) End stage renal disease on dialysis (Chronic) Polyclonal gammopathy (Chronic) PAF (paroxysmal atrial fibrillation) (Chronic) Glaucoma (Chronic) Depression (Chronic) Hyperuricemia (Chronic) Hypertension (Chronic) DM type 1 (diabetes mellitus, type 1) (Chronic) Anemia (Chronic) Medical History: Medical History (Last Updated 01/24/19 @ 13:27 by Daniella Donald MD) End stage renal disease on dialysis (Chronic) N18.6, Z99.2 Polyclonal gammopathy (Chronic) D89.0 PAF (paroxysmal atrial fibrillation) (Chronic) I48.0 Glaucoma (Chronic) H40.9 Depression (Chronic) F32.9 Hyperuricemia (Chronic) E79.0 Hypertension (Chronic) I10 DM type 1 (diabetes mellitus, type 1) (Chronic) E10.9 Anemia (Chronic) D64.9 Metabolic encephalopathy G93.41 DKA (diabetic ketoacidoses) E13.10 Seizure (Inactive) R56.9 ddue to hypoglycemia Allergies levothyroxine sodium [From Synthroid] Allergy (Verified 02/16/19 15:14) Swelling Penicillins [PCN] Allergy (Verified 02/16/19 14:42) Hives Home Medications: Ambulatory Orders Medication Instructions Recorded Albuterol Inhaler [Ventolin Hfa] 2 puff INHALATION Q4H PRN PRN 10/28/16 Allopurinol [Zyloprim] 200 mg PO DAILY 10/28/16 Ergocalciferol [Vitamin D] 50,000 unit PO MOWEFR 10/28/16 Fluticasone 0.05% [Flonase Nasal 1 spray NASAL DAILY PRN PRN 10/28/16 Panaca] Gabapentin [Neurontin] 300 mg PO DAILY 10/28/16 Latanoprost 0.005% [Xalatan 1 drop EACH EYE QHS 10/28/16 Opthalmic] Sevelamer Carbonate [Renvela] 3,200 mg PO TID 05/17/17 ALPRAZolam [Xanax] 0.5 mg PO TID PRN PRN 11/22/18 Ascorbic Acid [Vitamin C] 500 mg PO UD 11/22/18 Ropinirole HCl [Requip] 0.5 mg PO QHS 11/22/18 Vit B Comp No.3/Folic/C/Biotin 1 ea PO DAILY 11/22/18 [Nephro-Reggie Rx Tablet] Ondansetron HCl [Zofran] 4 mg PO Q6H PRN PRN #20 tab 01/28/19 Pantoprazole Sodium [Protonix] 40 mg PO DAILY #30 tab 01/28/19 Insulin Glargine [Lantus SoloStar 3 units SUBCUT QHS 02/16/19 Pen] Insulin Lispro [Humalog KwikPen] 2 units SQ TID 02/16/19 Surgical History: cholecystectomy, hysterectomy, tonsillectomy, - - PD catheter placement, tunneled dialysis catheter placement, AVF 06/08/17. Psychiatric History: Anxiety, Depression ORACLE APPLICATION CONSULTANT History: No pertinent ORACLE APPLICATION CONSULTANT history Lives: With Family Smoking Status: Former smoker Tobacco Use: Non-smoker Alcohol: None Drugs: None - *Family History Maternal History Items: Cancer - Thyroid cancer and lung cancer, Diabetes, Heart Disease Paternal History Items: Diabetes, Heart Disease Review of Systems Constitutional: Reports: Anorexia, Malaise, Weakness, Fatigue. Denies: Chills, Fever, Weight Change Eyes: Denies: Blurred vision, Cataracts, Conjunctivae Inflammation, Pain, Redness, Vision Change HEENT: Denies: Difficulty Hearing, Difficulty Swallowing, Head Aches, Hearing Changes, Sinus Congestion, Sinus Drainage, Sore Throat Cardiovascular: Denies: Chest Pain, Claudication, Orthopnea, Palpitations, Paroxysmal Noc. Dyspnea Respiratory: Reports: Shortness of Breath, Shortness of breath upon exertion. Denies: Cough, Hemoptysis, Pleuritic Pain, Shortness of breath at rest, Sputum production Gastrointestinal: Reports: Nausea. Denies: Abdominal Pain, Hematemesis, Hematochezia, Vomiting Genitourinary: Denies: Dysuria, Frequency, Incontinence Gynecological: Denies: Breast symptoms, Excessively long or heavy periods, Vaginal discharge, Vaginal itching Musculoskeletal: Denies: Joint Pain, Joint stiffness, Joint swelling, Joint Tenderness Skin: Denies: Pruritis, Rash, Wounds Neurological: Denies: Difficulty swallowing, Focal weakness, Numbness, Tingling Psychiatric: Denies: Anxiety, Depression, Homicidal Ideations, Suicidal Ideations Hematologic/ Lymphatic: Denies: Easy Bruising, Easy Bleeding VTE Information - Inpt Only VTE Present on Admission: No VTE Pharm Prophylaxis ordered?: Yes Patient Problems: Active and Suspected Problems (Last Updated 01/24/19 @ 13:27 by Daniella Donald MD) Hyperkalemia (Acute) Hyperglycemia (Acute) Ascites (Acute) - Physical Exam General: Alert, Oriented x3, Cooperative, - - Looks fatigued, pale, moderately dehydrated HEENT: Atraumatic, PERRLA, EOMI, Normocephalic Neck: Supple Lungs: Clear to auscultation, Normal air movement Cardiovascular: Regular rate, Regular Rhythm, Normal S1, Normal S2, No murmurs Abdomen: Bowel Sounds Present, Soft, Non Tender, Non-Distended, No Hepato-splenomegaly Extremities: Edema - Bilateral +2 pedal edema Skin: No rashes, - - Dry skin Musculoskeletal: No Tenderness to Palpation of Joints or Extremities Lymphatic: No Cervical, Supraclavicular, or Inguinal Adenopathy Neurological: Cranial nerves II-XII grossly intact, Neuro grossly intact Psych/Mental Status: Normal Affect, Appropriate Vital Signs Temp Pulse Resp BP Pulse Ox 98 F 91 17 154/79 H 97 02/16/19 14:40 02/16/19 16:39 02/16/19 16:39 02/16/19 14:40 02/16/19 16:39 Oxygen Flow Rate (L/min) 2 Oxygen Delivery Method Nasal Cannula Weight: 67.132 kg Body Mass Index (BMI) 24.6 Finger Stick Blood Glucose 250 Laboratory Tests Past 24 Hrs 02/16/19 02/16/19 02/16/19 15:30 15:30 17:25 WBC 5.5 RBC 2.90 L Hgb 9.1 L Hct 29.0 L MCV 100.0 H MCH 31.4 MCHC 31.4 L RDW Std Deviation 46.4 H RDW Coeff of Tegan 12.8 Plt Count 152 MPV 11.4 Immature Gran % (Auto) 0.700 Neut % (Auto) 76.5 H Lymph % (Auto) 10.3 L Fillmore % (Auto) 7.3 Eos % (Auto) 4.7 Baso % (Auto) 0.5 Absolute Neuts (auto) 4.2 Absolute Lymphs (auto) 0.57 L Nucleated RBC % 0 Differential Comment SCANNED Sodium 125 L Potassium 7.5 H* Chloride 92 L Carbon Dioxide 22.0 Anion Gap 11 BUN 67 H Creatinine 7.68 H* Estim Creat Clear Calc 8.06 Est GFR (MDRD) Af Amer 7 L Est GFR (MDRD) Non-Af 6 L BUN/Creatinine Ratio 8.7 L Glucose 636 H* Calcium 7.5 L Total Bilirubin 0.50 AST 34 ALT 19 Alkaline Phosphatase 262 H Ammonia 17.0 Troponin I 0.051 H Total Protein 7.0 Albumin 2.4 L Globulin 4.6 H Albumin/Globulin Ratio 0.5 L Lipase 211 TSH 7.40 H Assessment/Plan All Active Problems (Last Updated 01/24/19 @ 13:27 by Daniella Donald MD) Hyperkalemia (Acute) Hyperglycemia (Acute) Ascites (Acute) 48-year-old female with past medical history of ESRD on hemodialysis, M-W-F, newly diagnosed malignant ascites who comes in with progressive weakness shortness of breath having missed 2 dialysis sessions( Saturday and Saturday). 1. Hyperkalemia secondary to missed dialysis, potassium is 7.5 EKG showed peaked T waves status post calcium gluconate, Kayexalate, bicarbonate in the ED Nephrology consulted, patient will be dialyzed tonight Plan: Admit to ICU, monitor per protocol, repeat BMP after dialysis 2. HHS, DKA in the known type II diabetic We will continue on insulin drip per protocol 3. Possible SBP, patient with penicillin allergy Will give aztreonam 1 g x 1 as she is a dialysis patient Will need to be re-evaluated 4. Newly diagnosed malignant ascites, likely secondary to ovarian CA Recent admission in the hospital showed negative fluid cytology Discharge from [facility] 5 days ago, work-up was positive for malignant ascites Plan: Oncology and gynecology consults, patient may need therapeutic paracentesis on reevaluation in a.m. 5. Hypertension, uncontrolled secondary to missed dialysis, continue to monitor with PRN hydralazine 6. Anxiety disorder, on PRN Xanax 7. Anemia, macrocytic, dropping hemoglobin from 13.4-9.1, Will check FOBT, vitamin B12 and folic acid 8. Elevated TSH, no history of hypothyroidism will check for free T3 and free T4 9. Mild elevation in troponin likely secondary to ESRD, will trend cardiac enzymes 10. DVT prophylaxis with heparin subcu Code Visit Inpatient E&M: [id number] Init Hosp L3
[2019-02-16 18:40] LABS: Bedside Glucose > 500 mg/dL (70-110)
[2019-02-16 20:06] LABS: Anion Gap 10 (5-15); BUN 61 mg/dL (7-18); BUN/Creat Ratio 9.1 RATIO (10-20); Calcium,Total 7.3 mg/dL (8.5-10.1); Chloride 96 mmol/L (98-107); Creatinine, Serum 6.72 mg/dL (0.55-1.02); EST Glomerular Filtration Rate 7 mL/min (>60); Est Glom Filt Rate - Afr Amer 8 mL/min (>60); Estimated Creatinine Clearance 9.21 ml/min; Glucose 592 mg/dL (74-106); Potassium 5.7 mmol/L (3.5-5.1); Sodium Level 129 mmol/L (136-145)
[2019-02-16] MEDS: 0.9% Normal Saline 1,000 ML 75 ML IV (20:10)
[2019-02-16 20:21] LABS: Bedside Glucose > 500 mg/dL (70-110)
[2019-02-16 20:21] LABS: Bedside Glucose 414 mg/dL (70-110)
[2019-02-16 20:59] LABS: Free T3 0.9 pg/mL (2.18-3.98); T4 Free Direct 0.53 ng/dL (0.76-1.46)
[2019-02-16 21:01] LABS: Bedside Glucose 247 mg/dL (70-110)
[2019-02-16 21:27] LABS: Vitamin B12 363 pg/mL (211-911)
[2019-02-16 22:05] LABS: Bedside Glucose 118 mg/dL (70-110)
--- NOTE | 2019-02-16 22:08 | DIALYSIS ---
HD X 3 HRS ON 1K BATH. [id number]. TOLERATED WELL. STASIS AT [facility] +BRUIT AND THRILL DSG AT [facility]. REPORT TO MAGDALENA POLLARD
[2019-02-16] MEDS: Latanoprost 0.005% 1 Bottle 1 DRP EACH EYE (23:26)
[2019-02-16] MEDS: Heparin Injection (Vial) 5,000 UNIT/ML VIAL 5000 UNIT SC (23:26)
[2019-02-16] MEDS: Pramipexole Di-HCl 0.25 MG Tablet PO (23:26)
[2019-02-16 23:34] LABS: Anion Gap 7 (5-15); BUN 35 mg/dL (7-18); BUN/Creat Ratio 7.8 RATIO (10-20); Calcium,Total 7.7 mg/dL (8.5-10.1); Chloride 100 mmol/L (98-107); Creatinine, Serum 4.46 mg/dL (0.55-1.02); EST Glomerular Filtration Rate 11 mL/min (>60); Est Glom Filt Rate - Afr Amer 14 mL/min (>60); Estimated Creatinine Clearance 13.32 ml/min; Glucose 93 mg/dL (74-106); Potassium 4.2 mmol/L (3.5-5.1); Sodium Level 134 mmol/L (136-145)
[2019-02-17] VITALS (20 sets, daily range): BP systolic 103–188; BP diastolic 66–101; PULSE 67–96; RESP 13–17; TEMP 36.6–37.1; O2SAT 93–100
[2019-02-17 02:11] LABS: Bedside Glucose 141 mg/dL (70-110)
[2019-02-17 04:42] LABS: Absolute Lymphocyte Count 0.71 X10^3/uL (0.83-4.51); Absolute Neutrophil Count 3.9 X10^3/uL (2.0-7.7); Basophil# 0.03 X10^3/uL; Basophil% 0.5 % (0-1); Eosinophil# 0.26 X10^3/uL; Eosinophils% 4.7 % (0-5); Hematocrit 24.4 % (37-47); Hemoglobin 8.1 g/dL (12.0-15.0); Lymphocyte # 0.71 X10^3/ul (4.0); Lymphocyte % 12.9 % (19-41); Mean Corp Hgb Conc 33.2 g/dL (32-36); Mean Corpuscular Hgb 31.9 pg (27.0-32.0); Mean Corpuscular Volume 96.1 fL (81-99); Mean Platelet Vol. 11.4 fl (6.2-12.0); Monocyte# 0.53 X10^3/uL; Monocyte% 9.7 % (0-10); NRBC Flagged by Analyzer 0 % (0-5); Neutrophil % 71.1 % (47-70); Platelet Count 160 K/mm3 (150-450); RBC Distribution Width CV 12.8 % (11.6-14.6); RBC Distribution Width SD 44.6 fl (35.1-43.9); Red Blood Count 2.54 M/mm3 (4.2-5.4); White Blood Count 5.5 K/mm3 (4.4-11.0)
[2019-02-17 04:51] LABS: ALB/GLOB Ratio 0.6 RATIO (0.9-2.4); AST(SGOT) 33 U/L (15-37); Alanine Aminotransfer ALT/SGPT 18 U/L (13-56); Albumin, Serum 2.2 g/dL (3.2-5.0); Alkaline Phosphatase 205 U/L (45-117); Anion Gap 8 (5-15); BUN 38 mg/dL (7-18); Calcium,Total 7.3 mg/dL (8.5-10.1); Chloride 100 mmol/L (98-107); Creatinine, Serum 4.76 mg/dL (0.55-1.02); EST Glomerular Filtration Rate 10 mL/min (>60); Est Glom Filt Rate - Afr Amer 13 mL/min (>60); Estimated Creatinine Clearance 12.48 ml/min; Globulin 3.7 g/dL (2.2-4.2); Glucose 165 mg/dL (74-106); Phosphorus 6.8 mg/dL (2.5-4.9); Potassium 5.4 mmol/L (3.5-5.1); Protein, Total 5.9 g/dL (6.4-8.2); Sodium Level 136 mmol/L (136-145)
[2019-02-17] MEDS: Heparin Injection (Vial) 5,000 UNIT/ML VIAL 5000 UNIT SC ×2 (06:23→13:41)
[2019-02-17 07:01] LABS: Bedside Glucose 154 mg/dL (70-110)
--- NOTE | 2019-02-17 07:18 | PN_ITS ---
Patient Problems: Active and Suspected Problems (Last Updated 01/24/19 @ 13:27 by Daniella Donald MD) Hyperkalemia (Acute) Hyperglycemia (Acute) Ascites (Acute) Not verified from [facility] yet Subjective: Patient was seen and examined. She feels much better. She underwent emergent dialysis yesterday with 3.5 L of fluid removed. She denied any dizziness or chest pain or palpitations. Record request from the [facility] is still pending, upon discussion with Dr. Brito and nephrology and retake of history again from patient; Patient apparently did not undergo a second paracentesis in [facility]. Her work-up today included CT scans. No formal diagnosis of malignant ascites. Objective: Physical Exam General: Alert, Oriented x3, Cooperative, - - Looks fatigued but improved from yesterday, pale, moderately dehydrated HEENT: Atraumatic, PERRLA, EOMI, Normocephalic Neck: Supple Lungs: Clear to auscultation, Normal air movement Cardiovascular: Regular rate, Regular Rhythm, Normal S1, Normal S2, No murmurs Abdomen: Bowel Sounds Present, Soft, Non Tender, Non-Distended, No Hepato- splenomegaly Extremities: Edema - Bilateral +1 pedal edema Skin: No rashes, - - Dry skin Musculoskeletal: No Tenderness to Palpation of Joints or Extremities Lymphatic: No Cervical, Supraclavicular, or Inguinal Adenopathy Neurological: Cranial nerves II-XII grossly intact, Neuro grossly intact Psych/Mental Status: Normal Affect, Appropriate Vitals/I&O's: Vital Signs Temp Pulse Resp BP Pulse Ox 98.5 F 88 17 167/86 H 99 02/17/19 00:00 02/17/19 06:00 02/17/19 06:00 02/17/19 06:00 02/17/19 06:00 Oxygen Flow Rate (L/min) 2 Oxygen Delivery Method Nasal Cannula Weight: 84.2 kg Body Mass Index (BMI) 32.1 Finger Stick Blood Glucose 250 Intake and Output for Last 24 Hours 02/15/19 02/16/19 02/17/19 23:59 23:59 23:59 Intake Total 12.21 / 252.21 1365 / 1365 Output Total 3500 / 3500 Balance -3487.79 / -3247.79 1365 / 1365 Laboratory Results 02/16/19 15:30: WBC 5.5, RBC 2.90 L, Hgb 9.1 L, Hct 29.0 L, MCV 100.0 H, MCH 31.4, MCHC 31.4 L, RDW Std Deviation 46.4 H, RDW Coeff of Tegan 12.8, Plt Count 152, MPV 11.4, Immature Gran % (Auto) 0.700, Neut % (Auto) 76.5 H, Lymph % (Auto) 10.3 L, [place] % (Auto) 7.3, Eos % (Auto) 4.7, Baso % (Auto) 0.5, Absolute Neuts (auto) 4.2, Absolute Lymphs (auto) 0.57 L, Nucleated RBC % 0, Differential Comment SCANNED 02/16/19 15:30: Sodium 125 L, Potassium 7.5 H*, Chloride 92 L, Carbon Dioxide 22.0, Anion Gap 11, BUN 67 H, Creatinine 7.68 H*, Estim Creat Clear Calc 8.06, Est GFR (MDRD) Af Amer 7 L, Est GFR (MDRD) Non-Af 6 L, BUN/Creatinine Ratio 8.7 L, Glucose 636 H*, Calcium 7.5 L, Total Bilirubin 0.50, AST 34, ALT 19, Alkaline Phosphatase 262 H, Troponin I 0.051 H, Total Protein 7.0, Albumin 2.4 L, Globulin 4.6 H, Albumin/Globulin Ratio 0.5 L, Lipase 211, TSH 7.40 H 02/16/19 15:30: Vitamin B12 363 02/16/19 17:25: Ammonia 17.0 02/16/19 18:31: POC Glucose > 500 H* 02/16/19 19:09: POC Glucose > 500 H* 02/16/19 19:30: Glucose Cancelled 02/16/19 19:30: Sodium 129 L, Potassium 5.7 H, Chloride 96 L, Carbon Dioxide 23.0, Anion Gap 10, BUN 61 H, Creatinine 6.72 H, Estim Creat Clear Calc 9.21, Est GFR (MDRD) Af Amer 8 L, Est GFR (MDRD) Non-Af 7 L, BUN/Creatinine Ratio 9.1 L, Glucose 592 H*, Calcium 7.3 L 02/16/19 19:30: Folate 12.00, Free T4 0.53 L, Free T3 pg/dL 0.9 L 02/16/19 20:04: POC Glucose 414 H 02/16/19 20:55: POC Glucose 247 H 02/16/19 22:02: POC Glucose 118 H 02/16/19 23:10: Sodium 134 L, Potassium 4.2, Chloride 100, Carbon Dioxide 27.0, Anion Gap 7, BUN 35 H, Creatinine 4.46 H, Estim Creat Clear Calc 13.32, Est GFR (MDRD) Af Amer 14 L, Est GFR (MDRD) Non-Af 11 L, BUN/Creatinine Ratio 7.8 L, Glucose 93, Calcium 7.7 L 02/17/19 02:05: POC Glucose 141 H 02/17/19 04:20: WBC 5.5, RBC 2.54 L, Hgb 8.1 L, Hct 24.4 L, MCV 96.1, MCH 31.9, MCHC 33.2, RDW Std Deviation 44.6 H, RDW Coeff of Tegan 12.8, Plt Count 160, MPV 11.4, Immature Gran % (Auto) 1.100 H, Neut % (Auto) 71.1 H, Lymph % (Auto) 12.9 L, [place] % (Auto) 9.7, Eos % (Auto) 4.7, Baso % (Auto) 0.5, Absolute Neuts (auto) 3.9, Absolute Lymphs (auto) 0.71 L, Nucleated RBC % 0 02/17/19 04:20: Sodium 136, Potassium 5.4 H, Chloride 100, Carbon Dioxide 28.0, Anion Gap 8, BUN 38 H, Creatinine 4.76 H, Estim Creat Clear Calc 12.48, Est GFR (MDRD) Af Amer 13 L, Est GFR (MDRD) Non-Af 10 L, BUN/Creatinine Ratio 8.0 L, Glucose 165 H, Calcium 7.3 L, Total Bilirubin 0.30, AST 33, ALT 18, Alkaline Phosphatase 205 H, Total Protein 5.9 L, Albumin 2.2 L, Globulin 3.7, Albumin/Globulin Ratio 0.6 L 02/17/19 04:20: Phosphorus 6.8 H 02/17/19 06:55: POC Glucose 154 H Current Medications Acetaminophen (Tylenol) 650 mg PO Q6H PRN PRN PRN Reason: Mild Pain (1-3)/Temp > 100.7 F Allopurinol (Zyloprim) 200 mg PO DAILY COUNT INCLUDES THE [facility] Alprazolam (Xanax) 0.5 mg PO TID PRN PRN PRN Reason: ANXIETY Ascorbic Acid (Vitamin C) 500 mg PO UD COUNT INCLUDES THE [facility] Last Admin: 02/16/19 23:50 Dose: Not Given Documented by: Dextrose (D50w Syringe) 0 gm IV X1 PRN; Protocol PRN Reason: Hypoglycemia Fluticasone Propionate (Flonase Nasal [place]) 1 spray NASAL DAILY PRN PRN PRN Reason: ALLERGIES Gabapentin (Neurontin) 300 mg PO DAILY COUNT INCLUDES THE [facility] Glucagon () 1 mg IM .X1 PRN PRN Reason: Hypoglycemia Heparin Sodium (Porcine) (Heparin Na) 5,000 unit SC Q8 COUNT INCLUDES THE [facility] Last Admin: 02/17/19 06:23 Dose: 5,000 unit Documented by: Hydralazine HCl (Apresoline Iv) 5 mg IV Q6H PRN PRN PRN Reason: BLOOD PRESSURE Insulin Human Lispro (Humalog Kwikpen (Bkc)) 0 unit SC ACHS & 3AM COUNT INCLUDES THE [facility]; Protocol Last Admin: 02/17/19 05:26 Dose: Not Given Documented by: Latanoprost (Xalatan Opthalmic) 1 drop EACH EYE QHS COUNT INCLUDES THE [facility] Last Admin: 02/16/19 23:26 Dose: 1 drop Documented by: Multivit/Ca Carb/B Cmplx/FA/Prenat (Nephrocaps, Renaphro) 1 capsule PO DAILY COUNT INCLUDES THE [facility] Ondansetron HCl (Zofran) 4 mg IV Q8H PRN PRN PRN Reason: NAUSEA/VOMITING Pramipexole Dihydrochloride (Mirapex) 0.25 mg PO QHS COUNT INCLUDES THE [facility] Last Admin: 02/16/19 23:26 Dose: 0.25 mg Documented by: Sevelamer Carbonate (Renvela) 3,200 mg PO TIDCM COUNT INCLUDES THE [facility] Sodium Chloride () 5 - 15 ml IV UD PRN PRN Reason: SALINE FLUSH Medical Necessity - Tobacco Use Smoking Status: Former smoker Tobacco Use: Non-smoker Assessment/Plan All Active Problems (Last Updated 01/24/19 @ 13:27 by Daniella Donald MD) Hyperkalemia (Acute) Hyperglycemia (Acute) Ascites (Acute) 48-year-old female with past medical history of ESRD on hemodialysis, M-W-F, ascites of unclear etiology who comes in with progressive weakness shortness of breath having missed 2 dialysis sessions( Saturday and Saturday). 1. Hyperkalemia secondary to missed dialysis, resolved Admitting potassium was 7.5 with EKG changes status post calcium gluconate, Kayexalate, bicarbonate in the ED Status post emergent dialysis, potassium this morning is 5.4 Nephrology consulted Plan: Continue to monitor on the renal diet, repeat blood work in a.m. 2. HHS, DKA in the known type II diabetic, resolved Recent HbA1c was 10.1 on 12/19 Patient with reported brittle blood sugars Plan: We will start patient on Lantus 5 units nightly and continue with medium - high dose insulin sliding scale with blood glucose checks 3. Possible spontaneous bacterial peritonitis, tenderness improved today History of penicillin allergy Received aztreonam 1 g x 1 yesterday Will start on oral cipro from tomorrow(renal dose) for a total of 5 days 4. Ascites, unclear etiology, NO newly diagnosed malignant ascites per discussion with oncology. Formal records from [facility] is still pending. Appreciate gynecology consult. CA-125 ordered, pending results Recent admission in this hospital showed negative fluid cytology Plan: Patient needs urgent GI evaluation, will continue to re-evaluate patient 5. ESRD on HD, catch-up dialysis today, resuming schedule tomorrow 6. Hypertension, remains uncontrolled, will start on metoprolol XL 12.5 mg daily, continue with PRN hydralazine Will continue to monitor blood pressure and up-titrate metoprolol if needed 7. Anxiety disorder, on PRN Xanax 8. Anemia, macrocytic, drop in Hb from 13.4 to 8.1, FOBT is pending, folic acid is normal, vitamin B12 levels are pending, will check iron stores 9. Elevated TSH, low free T3 and free T4 suggestive of hypothyroidism but patient is without symptoms Patient also has reported allergy to levothyroxine, suggest repeating blood work in 4-6 weeks. Will need endocrinology evaluation 10 Mild elevation in troponin likely secondary to ESRD, 11. DVT prophylaxis with heparin subcu Code Visit Inpatient E&M: 88864 Subs Hosp L2
--- NOTE | 2019-02-17 07:46 | CON.PCM_ITS ---
Problem List (1) Hyperkalemia Status: Acute (2) Hyperglycemia Status: Acute (3) Ascites Status: Acute Qualifiers: Ascites type: malignant Qualified Code(s): R18.0 - Malignant ascites Comment: Not verified from [facility] yet (4) End stage renal disease on dialysis Status: Chronic (5) Polyclonal gammopathy Status: Chronic (6) PAF (paroxysmal atrial fibrillation) Status: Chronic (7) Glaucoma Status: Chronic Qualifiers: Glaucoma type: unspecified Laterality: unspecified laterality Qualified Code(s): H40.9 - Unspecified glaucoma (8) Depression Status: Chronic Qualifiers: Depression Type: unspecified Qualified Code(s): F32.9 - Major depressive disorder, single episode, unspecified (9) Hypertension Status: Chronic Qualifiers: Hypertension type: essential hypertension Qualified Code(s): I10 - Essential (primary) hypertension (10) DM type 1 (diabetes mellitus, type 1) Status: Chronic Qualifiers: Diabetes mellitus complication status: with unspecified complications (11) Anemia Status: Chronic Qualifiers: Chronic kidney disease stage: on chronic dialysis Reason for Consult Date of Consultation: 02/17/19 Reason for Consultation: Hyperglycemia, hyperkalemia History of Present Illness: The patient is a 48 year old F, with past medical history listed below, who presented [facility] on 02/16/2019 secondary to worsening abdominal edema and elevated blood sugars. Patient reportedly was recently admitted to [facility] with similar type presentation. Patient reportedly had seen a [employer] operations staff officer and had a paracentesis. There is a variable history on whether ascites was malignant or not. Patient states that she has not heard anything of malignancy. Patient states that she was not feeling well, so administer last 2 hemodialysis appointments. In the ER, patient's physical exam and initial work-up was relatively unremarkable except for an elevated potassium. Patient was given Kayexalate, insulin, bicarbonate and calcium gluconate. Patient did have a right femoral triple-lumen placed secondary to access issues. Patient was admitted to the intensive care unit and did receive hemodialysis overnight. This morning, patient reports that she is much improved compared to previous. Patient feels that she is almost normal. Patient continues to report some abdominal sensation of swelling, but states that she feels better now that her sugars are better controlled. Patient is asking to eat. Patient is a relatively poor historian. Patient is unable to provide much history about the [facility] hospitalization. Patient does follow with Dr. Sevilla at baseline. Patient admits that she does have some difficulty in making it to hemodialysis intermittently. Patient does not make significant amount of urine. Patient is stating that she is completely unaware of any diagnosis of malignancy following tap of her abdomen. Review of systems otherwise negative from a constitutional, HEENT, respiratory, cardiovascular, GI, genitourinary, musculoskeletal, skin, neurologic, psychiatric and hematologic system unless stated above. Past Medical History Past Medical History (Chronic Problems): Chronic Problems (Last Updated 01/24/19 @ 13:27 by Daniella Donald MD) Abnormal LFTs (Chronic) End stage renal disease on dialysis (Chronic) Polyclonal gammopathy (Chronic) PAF (paroxysmal atrial fibrillation) (Chronic) Glaucoma (Chronic) Depression (Chronic) Hyperuricemia (Chronic) Hypertension (Chronic) DM type 1 (diabetes mellitus, type 1) (Chronic) Anemia (Chronic) Medical History: Medical History (Last Updated 01/24/19 @ 13:27 by Daniella Donald MD) End stage renal disease on dialysis (Chronic) N18.6, Z99.2 Polyclonal gammopathy (Chronic) D89.0 PAF (paroxysmal atrial fibrillation) (Chronic) I48.0 Glaucoma (Chronic) H40.9 Depression (Chronic) F32.9 Hyperuricemia (Chronic) E79.0 Hypertension (Chronic) I10 DM type 1 (diabetes mellitus, type 1) (Chronic) E10.9 Anemia (Chronic) D64.9 Metabolic encephalopathy G93.41 DKA (diabetic ketoacidoses) E13.10 Seizure (Inactive) R56.9 ddue to hypoglycemia Allergies levothyroxine sodium [From Synthroid] Allergy (Verified 02/16/19 15:14) Swelling Penicillins [PCN] Allergy (Verified 02/16/19 14:42) Hives Home Medications: Ambulatory Orders Medication Instructions Recorded Albuterol Inhaler [Ventolin Hfa] 2 puff INHALATION Q4H PRN PRN 10/28/16 Allopurinol [Zyloprim] 200 mg PO DAILY 10/28/16 Ergocalciferol [Vitamin D] 50,000 unit PO MOWEFR 10/28/16 Fluticasone 0.05% [Flonase Nasal 1 spray NASAL DAILY PRN PRN 10/28/16 [place]] Gabapentin [Neurontin] 300 mg PO DAILY 10/28/16 Latanoprost 0.005% [Xalatan 1 drop EACH EYE QHS 10/28/16 Opthalmic] Sevelamer Carbonate [Renvela] 3,200 mg PO TID 05/17/17 ALPRAZolam [Xanax] 0.5 mg PO TID PRN PRN 11/22/18 Ascorbic Acid [Vitamin C] 500 mg PO UD 11/22/18 Ropinirole HCl [Requip] 0.5 mg PO QHS 11/22/18 Vit B Comp No.3/Folic/C/Biotin 1 ea PO DAILY 11/22/18 [Nephro-Reggie Rx Tablet] Ondansetron HCl [Zofran] 4 mg PO Q6H PRN PRN #20 tab 01/28/19 Pantoprazole Sodium [Protonix] 40 mg PO DAILY #30 tab 01/28/19 Insulin Glargine [Lantus SoloStar 3 units SUBCUT QHS 02/16/19 Pen] Insulin Lispro [Humalog KwikPen] 2 units SQ TID 02/16/19 Surgical History: cholecystectomy, hysterectomy, tonsillectomy, - - PD catheter placement, tunneled dialysis catheter placement, AVF 06/08/17. 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 AND SAFETY MANAGER History: No pertinent HEALTH AND SAFETY MANAGER history Lives: With Family Smoking Status: Former smoker Tobacco Use: Non-smoker Alcohol: None Drugs: None - *Family History Maternal History Items: Cancer - Thyroid cancer and lung cancer, Diabetes, Heart Disease Paternal History Items: Diabetes, Heart Disease Review of Systems Comment: See HPI Patient Problems: Active and Suspected Problems (Last Updated 01/24/19 @ 13:27 by Daniella Donald MD) Hyperkalemia (Acute) Hyperglycemia (Acute) Ascites (Acute) Not verified from [facility] yet Objective: Chest x-ray was personally reviewed and shows no acute pathology. There is some prominent hilar vasculature noted. - Physical Exam General: Alert, Oriented x3, Cooperative, No apparent distress, Well developed, Well nourished, - - Obese. Slightly pale in appearance. No conversational dyspnea. HEENT: Atraumatic, PERRLA, EOMI, Normocephalic, - - No scleral icterus or injection noted Oral: Moist Mucosa, No Gingival or Mucosal Lesions/ Ulcerations Neck: Supple, No JVD, No Nodes, Trachea Midline Lungs: Clear to auscultation, Normal air movement, No rhonchi, No wheeze, No rales Cardiovascular: Regular rate, Regular Rhythm, Normal S1, Normal S2, No murmurs, No rub noted, No Gallop, - - Propagation of fistular murmur noted at left upper sternal border Abdomen: Bowel Sounds Present, Soft, Non Tender, Distended - Slightly, Obese Extremities: No clubbing, No cyanosis, Edema Skin: No rashes, No breakdown Musculoskeletal: No Tenderness to Palpation of Joints or Extremities, - - Fistula palpated in left upper extremity Lymphatic: No Cervical, Supraclavicular, or Inguinal Adenopathy Neurological: Cranial nerves II-XII grossly intact, Neuro grossly intact, Motor Exam 5/5 strength throughout Psych/Mental Status: Alert and oriented to time, place, person, mood and affect Vital Signs Temp Pulse Resp BP Pulse Ox 36.9 C 88 17 167/86 H 99 02/17/19 00:00 02/17/19 06:00 02/17/19 06:00 02/17/19 06:00 02/17/19 06:00 Oxygen Flow Rate (L/min) 2 Oxygen Delivery Method Nasal Cannula Weight: 84.2 kg Body Mass Index (BMI) 32.1 Finger Stick Blood Glucose 250 Intake and Output for Last 24 Hours 02/15/19 02/16/19 02/17/19 23:59 23:59 23:59 Intake Total 12.21 / 252.21 1365 / 1365 Output Total 3500 / 3500 Balance -3487.79 / -3247.79 1365 / 1365 Laboratory Tests Past 24 Hrs 02/16/19 02/16/19 02/16/19 15:30 15:30 15:30 WBC 5.5 RBC 2.90 L Hgb 9.1 L Hct 29.0 L MCV 100.0 H MCH 31.4 MCHC 31.4 L RDW Std Deviation 46.4 H RDW Coeff of Tegan 12.8 Plt Count 152 MPV 11.4 Immature Gran % (Auto) 0.700 Neut % (Auto) 76.5 H Lymph % (Auto) 10.3 L [place] % (Auto) 7.3 Eos % (Auto) 4.7 Baso % (Auto) 0.5 Absolute Neuts (auto) 4.2 Absolute Lymphs (auto) 0.57 L Nucleated RBC % 0 Differential Comment SCANNED Sodium 125 L Potassium 7.5 H* Chloride 92 L Carbon Dioxide 22.0 Anion Gap 11 BUN 67 H Creatinine 7.68 H* Estim Creat Clear Calc 8.06 Est GFR (MDRD) Af Amer 7 L Est GFR (MDRD) Non-Af 6 L BUN/Creatinine Ratio 8.7 L Glucose 636 H* Calcium 7.5 L Phosphorus Total Bilirubin 0.50 AST 34 ALT 19 Alkaline Phosphatase 262 H Ammonia Troponin I 0.051 H Total Protein 7.0 Albumin 2.4 L Globulin 4.6 H Albumin/Globulin Ratio 0.5 L Lipase 211 Vitamin B12 363 Folate TSH 7.40 H Free T4 Free T3 pg/dL 02/16/19 02/16/19 02/16/19 17:25 19:30 19:30 WBC RBC Hgb Hct MCV MCH MCHC RDW Std Deviation RDW Coeff of Tegan Plt Count MPV Immature Gran % (Auto) Neut % (Auto) Lymph % (Auto) [place] % (Auto) Eos % (Auto) Baso % (Auto) Absolute Neuts (auto) Absolute Lymphs (auto) Nucleated RBC % Differential Comment Sodium 129 L Potassium 5.7 H Chloride 96 L Carbon Dioxide 23.0 Anion Gap 10 BUN 61 H Creatinine 6.72 H Estim Creat Clear Calc 9.21 Est GFR (MDRD) Af Amer 8 L Est GFR (MDRD) Non-Af 7 L BUN/Creatinine Ratio 9.1 L Glucose Cancelled 592 H* Calcium 7.3 L Phosphorus Total Bilirubin AST ALT Alkaline Phosphatase Ammonia 17.0 Troponin I Total Protein Albumin Globulin Albumin/Globulin Ratio Lipase Vitamin B12 Folate TSH Free T4 Free T3 pg/dL 02/16/19 02/16/19 02/17/19 19:30 23:10 04:20 WBC 5.5 RBC 2.54 L Hgb 8.1 L Hct 24.4 L MCV 96.1 MCH 31.9 MCHC 33.2 RDW Std Deviation 44.6 H RDW Coeff of Tegan 12.8 Plt Count 160 MPV 11.4 Immature Gran % (Auto) 1.100 H Neut % (Auto) 71.1 H Lymph % (Auto) 12.9 L [place] % (Auto) 9.7 Eos % (Auto) 4.7 Baso % (Auto) 0.5 Absolute Neuts (auto) 3.9 Absolute Lymphs (auto) 0.71 L Nucleated RBC % 0 Differential Comment Sodium 134 L Potassium 4.2 Chloride 100 Carbon Dioxide 27.0 Anion Gap 7 BUN 35 H Creatinine 4.46 H Estim Creat Clear Calc 13.32 Est GFR (MDRD) Af Amer 14 L Est GFR (MDRD) Non-Af 11 L BUN/Creatinine Ratio 7.8 L Glucose 93 Calcium 7.7 L Phosphorus Total Bilirubin AST ALT Alkaline Phosphatase Ammonia Troponin I Total Protein Albumin Globulin Albumin/Globulin Ratio Lipase Vitamin B12 Folate 12.00 TSH Free T4 0.53 L Free T3 pg/dL 0.9 L 02/17/19 02/17/19 04:20 04:20 WBC RBC Hgb Hct MCV MCH MCHC RDW Std Deviation RDW Coeff of Tegan Plt Count MPV Immature Gran % (Auto) Neut % (Auto) Lymph % (Auto) [place] % (Auto) Eos % (Auto) Baso % (Auto) Absolute Neuts (auto) Absolute Lymphs (auto) Nucleated RBC % Differential Comment Sodium 136 Potassium 5.4 H Chloride 100 Carbon Dioxide 28.0 Anion Gap 8 BUN 38 H Creatinine 4.76 H Estim Creat Clear Calc 12.48 Est GFR (MDRD) Af Amer 13 L Est GFR (MDRD) Non-Af 10 L BUN/Creatinine Ratio 8.0 L Glucose 165 H Calcium 7.3 L Phosphorus 6.8 H Total Bilirubin 0.30 AST 33 ALT 18 Alkaline Phosphatase 205 H Ammonia Troponin I Total Protein 5.9 L Albumin 2.2 L Globulin 3.7 Albumin/Globulin Ratio 0.6 L Lipase Vitamin B12 Folate TSH Free T4 Free T3 pg/dL POC Glucose 02/17/19 02/17/19 02/16/19 06:55 02:05 22:02 POC Glucose 154 H 141 H 118 H 02/16/19 02/16/19 02/16/19 20:55 20:04 19:09 POC Glucose 247 H 414 H > 500 H* 02/16/19 18:31 POC Glucose > 500 H* Clinical Impression(s) from Imaging Studies Chest X-Ray 02/16/19 14:52 IMPRESSION: No acute thoracic pathology. Electronically Signed: Attila Swartz, at 15:15 EDT Tel , Service support , Assessment/Plan Active and Suspected Problems (Last Updated 01/24/19 @ 13:27 by Daniella Donald MD) Hyperkalemia (Acute) Hyperglycemia (Acute) Ascites (Acute) Not verified from [facility] yet RECOMMENDATIONS: 1. Defer to renal on repeat hemodialysis 2. Transition to baseline insulin therapy and p.o. diet 3. Await records from [facility] concerning ascites 4. Likely okay to defer from the intensive care unit from my perspective IMPRESSIONS: 1. Hyperkalemia secondary to end-stage renal disease secondary to missed dialysis Patient did have hemodialysis overnight with improvement in potassium. Patient is somewhat elevated this morning. Would defer to renal on whether repeat hemodialysis would be indicated today. Patient's glucose is much improved. Patient appears to be mentating at baseline. No significant ectopy noted on telemetry. Patient's oxygen status has significantly improved after ablation of hemodialysis indicating probable fluid etiology, possible acute on chronic diastolic CHF. Echocardiogram from 01/26/2019 did show diastolic dysfunction with mild aortic stenosis. 2. HHS and uncontrolled type 2 diabetes mellitus His blood sugars are much controlled at this time. Patient likely had an element of acidosis adding to hyperglycemia. Okay to resume baseline medications from my perspective. Patient can be initiated on a p.o. diet with phosphate binders given end-stage renal disease. 3. Ascites Unclear if patient has malignant ascites versus SBP. Patient just had a paracentesis while admitted at [facility] 5 days ago. Need to confirm test results. Patient does not have any significant leukocytosis, fever or acute abdomen signs or symptoms. Likely okay to discontinue antibiotics from my perspective unless patient develops constitutional symptoms. 4. Hypertension/anxiety/probable anemia of chronic disease/elevated TSH/poor historian Complicates care, management, recovery and prognosis. Likely okay to continue with baseline medications at this time. Clinical suspicion for euthyroid sick syndrome. Would recommend thyroid work-up as an outpatient. Unclear if patient is aware of reported diagnosis from recent hospitalization. Code Visit Inpatient E&M: 83745 Init Hosp L3
--- NOTE | 2019-02-17 08:02 | CON.PCM_ITS ---
Reason for Consult Date of Consultation: 02/17/19 Reason for Consultation: Ascites- rule out ICT SYSTEMS TEST ENGINEER malignancy History of Present Illness: The patient is a 48 year old male G0, P0 who was admitted to [facility] pole medical conditions including end-stage renal disease on dialysis, abnormal electrolytes, anemia, anasarca request was made for ICT SYSTEMS TEST ENGINEER consultation by Dr. Diaz due to abdominal ascites she wanted to rule out ICT SYSTEMS TEST ENGINEER malignancy. Patient reports she had a history of a hysterectomy performed by Dr. Pastora Lopez in 2012 due to heavy bleeding. Patient states she has never had an abnormal Pap smear nor any concerns with ovarian cysts or other gynecological conditions. Patient reports has never had children. Was following up for routine ICT SYSTEMS TEST ENGINEER care until her hysterectomy. Patient denies ever being told that she had ovarian cysts or ovarian cancer or other ICT SYSTEMS TEST ENGINEER malignancies. Patient states she had fluid removed from her abdomen and denies ever being told that it was malignant in nature. Offers no other gynecological concerns today. Past Medical History Past Medical History (Chronic Problems): Chronic Problems (Last Updated 01/24/19 @ 13:27 by Daniella Donald MD) Abnormal LFTs (Chronic) End stage renal disease on dialysis (Chronic) Polyclonal gammopathy (Chronic) PAF (paroxysmal atrial fibrillation) (Chronic) Glaucoma (Chronic) Depression (Chronic) Hyperuricemia (Chronic) Hypertension (Chronic) DM type 1 (diabetes mellitus, type 1) (Chronic) Anemia (Chronic) Medical History: Medical History (Last Updated 01/24/19 @ 13:27 by Daniella Donald MD) End stage renal disease on dialysis (Chronic) N18.6, Z99.2 Polyclonal gammopathy (Chronic) D89.0 PAF (paroxysmal atrial fibrillation) (Chronic) I48.0 Glaucoma (Chronic) H40.9 Depression (Chronic) F32.9 Hyperuricemia (Chronic) E79.0 Hypertension (Chronic) I10 DM type 1 (diabetes mellitus, type 1) (Chronic) E10.9 Anemia (Chronic) D64.9 Metabolic encephalopathy G93.41 DKA (diabetic ketoacidoses) E13.10 Seizure (Inactive) R56.9 ddue to hypoglycemia Allergies levothyroxine sodium [From Synthroid] Allergy (Verified 02/16/19 15:14) Swelling Penicillins [PCN] Allergy (Verified 02/16/19 14:42) Hives Home Medications: Ambulatory Orders Medication Instructions Recorded Albuterol Inhaler [Ventolin Hfa] 2 puff INHALATION Q4H PRN PRN 10/28/16 Allopurinol [Zyloprim] 200 mg PO DAILY 10/28/16 Ergocalciferol [Vitamin D] 50,000 unit PO MOWEFR 10/28/16 Fluticasone 0.05% [Flonase Nasal 1 spray NASAL DAILY PRN PRN 10/28/16 [facility]] Gabapentin [Neurontin] 300 mg PO DAILY 10/28/16 Latanoprost 0.005% [Xalatan 1 drop EACH EYE QHS 10/28/16 Opthalmic] Sevelamer Carbonate [Renvela] 3,200 mg PO TID 05/17/17 ALPRAZolam [Xanax] 0.5 mg PO TID PRN PRN 11/22/18 Ascorbic Acid [Vitamin C] 500 mg PO UD 11/22/18 Ropinirole HCl [Requip] 0.5 mg PO QHS 11/22/18 Vit B Comp No.3/Folic/C/Biotin 1 ea PO DAILY 11/22/18 [Nephro-Reggie Rx Tablet] Ondansetron HCl [Zofran] 4 mg PO Q6H PRN PRN #20 tab 01/28/19 Pantoprazole Sodium [Protonix] 40 mg PO DAILY #30 tab 01/28/19 Insulin Glargine [Lantus SoloStar 3 units SUBCUT QHS 02/16/19 Pen] Insulin Lispro [Humalog KwikPen] 2 units SQ TID 02/16/19 Surgical History: cholecystectomy, hysterectomy, tonsillectomy, - - PD catheter placement, tunneled dialysis catheter placement, AVF 06/08/17. Psychiatric History: Anxiety, Depression ICT SYSTEMS TEST ENGINEER History: No pertinent ICT SYSTEMS TEST ENGINEER history Lives: With Family Smoking Status: Former smoker Tobacco Use: Non-smoker Alcohol: None Drugs: None - *Family History Maternal History Items: Cancer - Thyroid cancer and lung cancer, Diabetes, Heart Disease Paternal History Items: Diabetes, Heart Disease Patient Problems: Active and Suspected Problems (Last Updated 01/24/19 @ 13:27 by Daniella Donald MD) Hyperkalemia (Acute) Hyperglycemia (Acute) Ascites (Acute) Not verified from [facility] yet Subjective: 48-year-old female sitting in bed does not appear to be in any acute distress. - Physical Exam General: Alert, Oriented x3 HEENT: Atraumatic Abdomen: Soft, Non Tender, Obese, - - No guarding, no rebound Vital Signs Temp Pulse Resp BP Pulse Ox 98.5 F 88 17 167/86 H 99 02/17/19 00:00 02/17/19 06:00 02/17/19 06:00 02/17/19 06:00 02/17/19 07:48 Oxygen Flow Rate (L/min) 2 Oxygen Delivery Method Nasal Cannula Weight: 84.2 kg Body Mass Index (BMI) 32.1 Finger Stick Blood Glucose 250 Intake and Output for Last 24 Hours 02/15/19 02/16/19 02/17/19 23:59 23:59 23:59 Intake Total 12.21 / 252.21 1365 / 1365 Output Total 3500 / 3500 Balance -3487.79 / -3247.79 1365 / 1365 Laboratory Tests Past 24 Hrs 02/16/19 02/16/19 02/16/19 15:30 15:30 15:30 WBC 5.5 RBC 2.90 L Hgb 9.1 L Hct 29.0 L MCV 100.0 H MCH 31.4 MCHC 31.4 L RDW Std Deviation 46.4 H RDW Coeff of Tegan 12.8 Plt Count 152 MPV 11.4 Immature Gran % (Auto) 0.700 Neut % (Auto) 76.5 H Lymph % (Auto) 10.3 L Ter[place] % (Auto) 7.3 Eos % (Auto) 4.7 Baso % (Auto) 0.5 Absolute Neuts (auto) 4.2 Absolute Lymphs (auto) 0.57 L Nucleated RBC % 0 Differential Comment SCANNED Sodium 125 L Potassium 7.5 H* Chloride 92 L Carbon Dioxide 22.0 Anion Gap 11 BUN 67 H Creatinine 7.68 H* Estim Creat Clear Calc 8.06 Est GFR (MDRD) Af Amer 7 L Est GFR (MDRD) Non-Af 6 L BUN/Creatinine Ratio 8.7 L Glucose 636 H* Calcium 7.5 L Phosphorus Total Bilirubin 0.50 AST 34 ALT 19 Alkaline Phosphatase 262 H Ammonia Troponin I 0.051 H Total Protein 7.0 Albumin 2.4 L Globulin 4.6 H Albumin/Globulin Ratio 0.5 L Lipase 211 Vitamin B12 363 Folate TSH 7.40 H Free T4 Free T3 pg/dL POC Glucose 02/16/19 02/16/19 02/16/19 17:25 18:31 19:09 WBC RBC Hgb Hct MCV MCH MCHC RDW Std Deviation RDW Coeff of Tegan Plt Count MPV Immature Gran % (Auto) Neut % (Auto) Lymph % (Auto) Terrell % (Auto) Eos % (Auto) Baso % (Auto) Absolute Neuts (auto) Absolute Lymphs (auto) Nucleated RBC % Differential Comment Sodium Potassium Chloride Carbon Dioxide Anion Gap BUN Creatinine Estim Creat Clear Calc Est GFR (MDRD) Af Amer Est GFR (MDRD) Non-Af BUN/Creatinine Ratio Glucose Calcium Phosphorus Total Bilirubin AST ALT Alkaline Phosphatase Ammonia 17.0 Troponin I Total Protein Albumin Globulin Albumin/Globulin Ratio Lipase Vitamin B12 Folate TSH Free T4 Free T3 pg/dL POC Glucose > 500 H* > 500 H* 02/16/19 02/16/19 02/16/19 19:30 19:30 19:30 WBC RBC Hgb Hct MCV MCH MCHC RDW Std Deviation RDW Coeff of Tegan Plt Count MPV Immature Gran % (Auto) Neut % (Auto) Lymph % (Auto) Terrell % (Auto) Eos % (Auto) Baso % (Auto) Absolute Neuts (auto) Absolute Lymphs (auto) Nucleated RBC % Differential Comment Sodium 129 L Potassium 5.7 H Chloride 96 L Carbon Dioxide 23.0 Anion Gap 10 BUN 61 H Creatinine 6.72 H Estim Creat Clear Calc 9.21 Est GFR (MDRD) Af Amer 8 L Est GFR (MDRD) Non-Af 7 L BUN/Creatinine Ratio 9.1 L Glucose Cancelled 592 H* Calcium 7.3 L Phosphorus Total Bilirubin AST ALT Alkaline Phosphatase Ammonia Troponin I Total Protein Albumin Globulin Albumin/Globulin Ratio Lipase Vitamin B12 Folate 12.00 TSH Free T4 0.53 L Free T3 pg/dL 0.9 L POC Glucose 02/16/19 02/16/19 02/16/19 20:04 20:55 22:02 WBC RBC Hgb Hct MCV MCH MCHC RDW Std Deviation RDW Coeff of Tegan Plt Count MPV Immature Gran % (Auto) Neut % (Auto) Lymph % (Auto) Ter[place] % (Auto) Eos % (Auto) Baso % (Auto) Absolute Neuts (auto) Absolute Lymphs (auto) Nucleated RBC % Differential Comment Sodium Potassium Chloride Carbon Dioxide Anion Gap BUN Creatinine Estim Creat Clear Calc Est GFR (MDRD) Af Amer Est GFR (MDRD) Non-Af BUN/Creatinine Ratio Glucose Calcium Phosphorus Total Bilirubin AST ALT Alkaline Phosphatase Ammonia Troponin I Total Protein Albumin Globulin Albumin/Globulin Ratio Lipase Vitamin B12 Folate TSH Free T4 Free T3 pg/dL POC Glucose 414 H 247 H 118 H 02/16/19 02/17/19 02/17/19 23:10 02:05 04:20 WBC 5.5 RBC 2.54 L Hgb 8.1 L Hct 24.4 L MCV 96.1 MCH 31.9 MCHC 33.2 RDW Std Deviation 44.6 H RDW Coeff of Tegan 12.8 Plt Count 160 MPV 11.4 Immature Gran % (Auto) 1.100 H Neut % (Auto) 71.1 H Lymph % (Auto) 12.9 L Terrell % (Auto) 9.7 Eos % (Auto) 4.7 Baso % (Auto) 0.5 Absolute Neuts (auto) 3.9 Absolute Lymphs (auto) 0.71 L Nucleated RBC % 0 Differential Comment Sodium 134 L Potassium 4.2 Chloride 100 Carbon Dioxide 27.0 Anion Gap 7 BUN 35 H Creatinine 4.46 H Estim Creat Clear Calc 13.32 Est GFR (MDRD) Af Amer 14 L Est GFR (MDRD) Non-Af 11 L BUN/Creatinine Ratio 7.8 L Glucose 93 Calcium 7.7 L Phosphorus Total Bilirubin AST ALT Alkaline Phosphatase Ammonia Troponin I Total Protein Albumin Globulin Albumin/Globulin Ratio Lipase Vitamin B12 Folate TSH Free T4 Free T3 pg/dL POC Glucose 141 H 02/17/19 02/17/19 02/17/19 04:20 04:20 06:55 WBC RBC Hgb Hct MCV MCH MCHC RDW Std Deviation RDW Coeff of Tegan Plt Count MPV Immature Gran % (Auto) Neut % (Auto) Lymph % (Auto) [place] % (Auto) Eos % (Auto) Baso % (Auto) Absolute Neuts (auto) Absolute Lymphs (auto) Nucleated RBC % Differential Comment Sodium 136 Potassium 5.4 H Chloride 100 Carbon Dioxide 28.0 Anion Gap 8 BUN 38 H Creatinine 4.76 H Estim Creat Clear Calc 12.48 Est GFR (MDRD) Af Amer 13 L Est GFR (MDRD) Non-Af 10 L BUN/Creatinine Ratio 8.0 L Glucose 165 H Calcium 7.3 L Phosphorus 6.8 H Total Bilirubin 0.30 AST 33 ALT 18 Alkaline Phosphatase 205 H Ammonia Troponin I Total Protein 5.9 L Albumin 2.2 L Globulin 3.7 Albumin/Globulin Ratio 0.6 L Lipase Vitamin B12 Folate TSH Free T4 Free T3 pg/dL POC Glucose 154 H POC Glucose 02/17/19 02/17/19 02/16/19 06:55 02:05 22:02 POC Glucose 154 H 141 H 118 H 02/16/19 02/16/19 02/16/19 20:55 20:04 19:09 POC Glucose 247 H 414 H > 500 H* 02/16/19 18:31 POC Glucose > 500 H* Assessment/Plan All Active Problems (Last Updated 01/24/19 @ 13:27 by Daniella Donald MD) Hyperkalemia (Acute) Hyperglycemia (Acute) Ascites (Acute) 48-year-old female G0, P0 with ascites-rotation for rule out ICT SYSTEMS TEST ENGINEER malignancy 1) reviewing previous imaging. Ultrasound performed on 01/27/2019 shows neither ovary was visualized. Ascites present. CT of the abdomen pelvis performed at [facility] on 01/23/2019 shows moderate anasarca and bilateral ovaries unremarkable. CT Scan done at [facility] on 02/10/2019 which does not make mention of any ovarian abnormalities. 2) unlikely ICT SYSTEMS TEST ENGINEER malignancy based on these findings but will order a Ca125 level. Value below 200u/ml in a premenopausal female is considered normal. 3) follow-up as needed with ICT SYSTEMS TEST ENGINEER as an outpatient 4) anasarca likely not caused by ICT SYSTEMS TEST ENGINEER malignancy-her other medical comorbidities that are likely the cause
[2019-02-17] MEDS: SEVELAMER CARBONATE 800 MG TABLET 3200 MG PO ×3 (08:11→17:30)
[2019-02-17] MEDS: Folic Acid/Vitamin B Comp W-C 1 Capsule 1 CAP PO ×2 (08:12→08:13)
[2019-02-17] MEDS: Allopurinol 100 MG Tablet 200 MG PO (08:12)
[2019-02-17] MEDS: Gabapentin 300 MG Capsule PO (08:13)
[2019-02-17] MEDS: Insulin Lispro 100 UNIT/ML INSULN.PEN SC ×5 (08:17→17:32)
--- NOTE | 2019-02-17 09:44 | CON.PCM_ITS ---
Problem List (1) Hyperkalemia Status: Acute (2) End stage renal disease on dialysis Status: Chronic Consultation - Renal 02/17/19 PCP/ Referring MD: Requesting physician: Dr Diaz Primary care physician: Elijah Curtis MD Reason for Consultation:: ESRD - History of Present Illness History of Present Illness: The patient is a 48 year old F who was admitted with hyperglycemia and hyperkalemia ESRD on HD MWF schedule recently admitted at [facility]. was discharged on . reviewed records from over there. basically got treated for DKA s/p HD overnight has moderate amount of LE edema and abdomen distention - Allergies Allergies: Allergies levothyroxine sodium [From Synthroid] Allergy (Verified 02/16/19 15:14) Swelling Penicillins [PCN] Allergy (Verified 02/16/19 14:42) Hives - Current Medications Current Medications: Current Medications Acetaminophen (Tylenol) 650 mg PO Q6H PRN PRN PRN Reason: Mild Pain (1-3)/Temp > 100.7 F Allopurinol (Zyloprim) 200 mg PO DAILY [facility] Last Admin: 02/17/19 08:12 Dose: 200 mg Documented by: Alprazolam (Xanax) 0.5 mg PO TID PRN PRN PRN Reason: ANXIETY Ascorbic Acid (Vitamin C) 500 mg PO UD [facility] Last Admin: 02/16/19 23:50 Dose: Not Given Documented by: Dextrose (D50w Syringe) 0 gm IV X1 PRN; Protocol PRN Reason: Hypoglycemia Fluticasone Propionate (Flonase Nasal [place]) 1 spray NASAL DAILY PRN PRN PRN Reason: ALLERGIES Gabapentin (Neurontin) 300 mg PO DAILY [facility] Last Admin: 02/17/19 08:13 Dose: 300 mg Documented by: Glucagon () 1 mg IM .X1 PRN PRN Reason: Hypoglycemia Heparin Sodium (Porcine) (Heparin Na) 5,000 unit SC Q8 [facility] Last Admin: 02/17/19 06:23 Dose: 5,000 unit Documented by: Hydralazine HCl (Apresoline Iv) 5 mg IV Q6H PRN PRN PRN Reason: BLOOD PRESSURE Insulin Glargine (Lantus (Bkc)) 5 units SC QHS [place] Insulin Human Lispro (Humalog Kwikpen (Bkc)) 0 unit SC ACHS [facility]; Protocol Insulin Human Lispro (Humalog Kwikpen (Bkc)) 2 unit SC BREAKFAST [place] Insulin Human Lispro (Humalog Kwikpen (Bkc)) 2 unit SC DINNER [place] Insulin Human Lispro (Humalog Kwikpen (Bkc)) 2 unit SC LUNCH [facility] Latanoprost (Xalatan Opthalmic) 1 drop EACH EYE QHS [facility] Last Admin: 02/16/19 23:26 Dose: 1 drop Documented by: Multivit/Ca Carb/B Cmplx/FA/Prenat (Nephrocaps, Renaphro) 1 capsule PO DAILY [facility] Last Admin: 02/17/19 08:13 Dose: 1 capsule Documented by: Ondansetron HCl (Zofran) 4 mg IV Q8H PRN PRN PRN Reason: NAUSEA/VOMITING Pramipexole Dihydrochloride (Mirapex) 0.25 mg PO QHS [facility] Last Admin: 02/16/19 23:26 Dose: 0.25 mg Documented by: Sevelamer Carbonate (Renvela) 3,200 mg PO TIDCM [facility] Last Admin: 02/17/19 08:11 Dose: 3,200 mg Documented by: Sodium Chloride () 5 - 15 ml IV UD PRN PRN Reason: SALINE FLUSH - Past Medical History Past Medical History (Chronic Problems): Chronic Problems (Last Updated 01/24/19 @ 13:27 by Daniella Donald MD) Abnormal LFTs (Chronic) End stage renal disease on dialysis (Chronic) Polyclonal gammopathy (Chronic) PAF (paroxysmal atrial fibrillation) (Chronic) Glaucoma (Chronic) Depression (Chronic) Hyperuricemia (Chronic) Hypertension (Chronic) DM type 1 (diabetes mellitus, type 1) (Chronic) Anemia (Chronic) - Past Surgical History Surgical History: cholecystectomy, hysterectomy, tonsillectomy, - - PD catheter placement, tunneled dialysis catheter placement, AVF 06/08/17. - Social History Smoking Status: Former smoker Alcohol: None Drugs: None - Family History Maternal History Items: Cancer - Thyroid cancer and lung cancer, Diabetes, Heart Disease Paternal History Items: Diabetes, Heart Disease Review of Systems Constitutional: Denies: Chills, Fever, Weight Change HEENT: Denies: Head Aches, Sinus Congestion, Sinus Drainage Cardiovascular: Denies: Chest Pain, Palpitations Respiratory: Denies: Cough, Shortness of breath at rest, Sputum production Gastrointestinal: Denies: Abdominal Pain, Nausea, Vomiting Genitourinary: Denies: Dysuria Musculoskeletal: Denies: Joint Pain, Joint Tenderness Skin: Denies: Rash, Wounds Neurological: Denies: Numbness, Tingling, Focal weakness Psychiatric: Denies: Anxiety, Depression, Homicidal Ideations, Suicidal Ideations Hematologic/ Lymphatic: Denies: Easy Bruising, Easy Bleeding Patient Problems: Active and Suspected Problems (Last Updated 01/24/19 @ 13:27 by Daniella Donald MD) Hyperkalemia (Acute) Hyperglycemia (Acute) Ascites (Acute) Not verified from [facility] yet - Physical Exam General: Alert, Oriented x3, Cooperative HEENT: Atraumatic, PERRLA, EOMI, Normocephalic Neck: Supple, No JVD, Negative Carotid Bruits Lungs: Clear to auscultation, Normal air movement Cardiovascular: Regular rate, No murmurs Abdomen: Soft Extremities: Capillary Refill Less than 3 Seconds, Edema Skin: No rashes, No breakdown Musculoskeletal: No Tenderness to Palpation of Joints or Extremities Neurological: Cranial nerves II-XII grossly intact Psych/Mental Status: Normal Affect, Appropriate Vital Signs Temp Pulse Resp BP Pulse Ox 98.8 F 94 17 153/97 H 100 02/17/19 08:00 02/17/19 09:00 02/17/19 09:00 02/17/19 09:00 02/17/19 09:00 Oxygen Flow Rate (L/min) 2 Oxygen Delivery Method Room Air Weight: 84.2 kg Body Mass Index (BMI) 32.1 Finger Stick Blood Glucose 250 Intake and Output for Last 24 Hours 02/15/19 02/16/19 02/17/19 23:59 23:59 23:59 Intake Total 12.21 / 252.21 1365 / 1365 Output Total 3500 / 3500 Balance -3487.79 / -3247.79 1365 / 1365 Laboratory Tests Past 24 Hrs 02/16/19 02/16/19 02/16/19 15:30 15:30 15:30 WBC 5.5 RBC 2.90 L Hgb 9.1 L Hct 29.0 L MCV 100.0 H MCH 31.4 MCHC 31.4 L RDW Std Deviation 46.4 H RDW Coeff of Tegan 12.8 Plt Count 152 MPV 11.4 Immature Gran % (Auto) 0.700 Neut % (Auto) 76.5 H Lymph % (Auto) 10.3 L [place] % (Auto) 7.3 Eos % (Auto) 4.7 Baso % (Auto) 0.5 Absolute Neuts (auto) 4.2 Absolute Lymphs (auto) 0.57 L Nucleated RBC % 0 Differential Comment SCANNED Sodium 125 L Potassium 7.5 H* Chloride 92 L Carbon Dioxide 22.0 Anion Gap 11 BUN 67 H Creatinine 7.68 H* Estim Creat Clear Calc 8.06 Est GFR (MDRD) Af Amer 7 L Est GFR (MDRD) Non-Af 6 L BUN/Creatinine Ratio 8.7 L Glucose 636 H* Calcium 7.5 L Phosphorus Total Bilirubin 0.50 AST 34 ALT 19 Alkaline Phosphatase 262 H Ammonia Troponin I 0.051 H Total Protein 7.0 Albumin 2.4 L Globulin 4.6 H Albumin/Globulin Ratio 0.5 L Lipase 211 CA 125 Antigen Vitamin B12 363 Folate TSH 7.40 H Free T4 Free T3 pg/dL 02/16/19 02/16/19 02/16/19 17:25 19:30 19:30 WBC RBC Hgb Hct MCV MCH MCHC RDW Std Deviation RDW Coeff of Tegan Plt Count MPV Immature Gran % (Auto) Neut % (Auto) Lymph % (Auto) [place] % (Auto) Eos % (Auto) Baso % (Auto) Absolute Neuts (auto) Absolute Lymphs (auto) Nucleated RBC % Differential Comment Sodium 129 L Potassium 5.7 H Chloride 96 L Carbon Dioxide 23.0 Anion Gap 10 BUN 61 H Creatinine 6.72 H Estim Creat Clear Calc 9.21 Est GFR (MDRD) Af Amer 8 L Est GFR (MDRD) Non-Af 7 L BUN/Creatinine Ratio 9.1 L Glucose Cancelled 592 H* Calcium 7.3 L Phosphorus Total Bilirubin AST ALT Alkaline Phosphatase Ammonia 17.0 Troponin I Total Protein Albumin Globulin Albumin/Globulin Ratio Lipase CA 125 Antigen Vitamin B12 Folate TSH Free T4 Free T3 pg/dL 02/16/19 02/16/19 02/17/19 19:30 23:10 04:20 WBC 5.5 RBC 2.54 L Hgb 8.1 L Hct 24.4 L MCV 96.1 MCH 31.9 MCHC 33.2 RDW Std Deviation 44.6 H RDW Coeff of Tegan 12.8 Plt Count 160 MPV 11.4 Immature Gran % (Auto) 1.100 H Neut % (Auto) 71.1 H Lymph % (Auto) 12.9 L [place] % (Auto) 9.7 Eos % (Auto) 4.7 Baso % (Auto) 0.5 Absolute Neuts (auto) 3.9 Absolute Lymphs (auto) 0.71 L Nucleated RBC % 0 Differential Comment Sodium 134 L Potassium 4.2 Chloride 100 Carbon Dioxide 27.0 Anion Gap 7 BUN 35 H Creatinine 4.46 H Estim Creat Clear Calc 13.32 Est GFR (MDRD) Af Amer 14 L Est GFR (MDRD) Non-Af 11 L BUN/Creatinine Ratio 7.8 L Glucose 93 Calcium 7.7 L Phosphorus Total Bilirubin AST ALT Alkaline Phosphatase Ammonia Troponin I Total Protein Albumin Globulin Albumin/Globulin Ratio Lipase CA 125 Antigen Vitamin B12 Folate 12.00 TSH Free T4 0.53 L Free T3 pg/dL 0.9 L 02/17/19 02/17/19 02/17/19 04:20 04:20 08:20 WBC RBC Hgb Hct MCV MCH MCHC RDW Std Deviation RDW Coeff of Tegan Plt Count MPV Immature Gran % (Auto) Neut % (Auto) Lymph % (Auto) [place] % (Auto) Eos % (Auto) Baso % (Auto) Absolute Neuts (auto) Absolute Lymphs (auto) Nucleated RBC % Differential Comment Sodium 136 Potassium 5.4 H Chloride 100 Carbon Dioxide 28.0 Anion Gap 8 BUN 38 H Creatinine 4.76 H Estim Creat Clear Calc 12.48 Est GFR (MDRD) Af Amer 13 L Est GFR (MDRD) Non-Af 10 L BUN/Creatinine Ratio 8.0 L Glucose 165 H Calcium 7.3 L Phosphorus 6.8 H Total Bilirubin 0.30 AST 33 ALT 18 Alkaline Phosphatase 205 H Ammonia Troponin I Total Protein 5.9 L Albumin 2.2 L Globulin 3.7 Albumin/Globulin Ratio 0.6 L Lipase CA 125 Antigen Pending Vitamin B12 Folate TSH Free T4 Free T3 pg/dL POC Glucose 02/17/19 02/17/19 02/16/19 06:55 02:05 22:02 POC Glucose 154 H 141 H 118 H 02/16/19 02/16/19 02/16/19 20:55 20:04 19:09 POC Glucose 247 H 414 H > 500 H* 02/16/19 18:31 POC Glucose > 500 H* Assessment/Plan All Active Problems (Last Updated 01/24/19 @ 13:27 by Daniella Donald MD) Hyperkalemia (Acute) Hyperglycemia (Acute) Ascites (Acute) ESRD. HD yesterday, will plan for HD today Hyperkalemia. s/p HD. repeat HD today Edema. fluid removal as tolerated ascitis. recently tapped here. cytology negative. there was noted to be loculated effusion on initial CT. repeat paracentesis as needed
[2019-02-17] MEDS: hydrALAZINE 20 MG/ML Vial 5 MG IV ×2 (10:23→17:45)
[2019-02-17] MEDS: Acetaminophen 325 MG Tablet 650 MG PO (10:24)
--- NOTE | 2019-02-17 11:14 | CASEMGMT ---
Case Management Re-Admission Note: Was Admitted on 01/23/19-01/28/19 for Ascites Patient states that she had a F/u appointment with her doctor after being Discharged, however she was ill and was admitted at [facility] x4 days and therefore was not able to attend f/u appointment. States that she did fill her post DC medications and was taking them, denies any issues with the Post DC aftercare instructions, f/u or meds. States that she was attending her HD after hospital DC. RN CM Assessment Introduced role of RN CM to patient.? Patient is alert, oriented and able?to participate in RN CM Assessment. ?Care providers, pharmacy, and demographics verified. Patient getting ready to move from ICU to PCU upon assessment completion, Warm hand off done to PCU JAHAIRA Squires Presentation: Worsening Abd edema over the past 2 weeks. Per ER MD note- has missed dialysis appointments and when admitted at [facility] her sugar was over 1000. Admit Dx: HHS/Hyperkalemia Re-Admit: Yes, see above note Barriers/Issues: Patient denies. Plan: OFFICE SUPPORT ASSOCIATE Consult- Ascites-r/o OFFICE SUPPORT ASSOCIATE malignancy- per consult does not think Anasarca is likely caused by OFFICE SUPPORT ASSOCIATE Malignancy and plan to order Ca125 level PCP: Elijah Curtis Specialists: Nephro- Dr Sevilla, Endo- Dr Rodrigues HD C[facility]: [facility] Days: M/W/F HD Chair time: 6:10am-11:00am Preferred Pharmacy: [facility] Insurance: [facility], [facility], [facility] Rx Benefit:?Yes ?LNOK: Sister Mulu Vance LW/HPOA: Yes [facility] sister Mulu Vance Living Arrangements:?Lives alone in a 2 story home, states she is planning on moving as that was the home with her ex and she has been sleeping on the 1st fl on the couch. 5 steps to enter the home w/hand rails. ADL?s: Independent with ambulation and ADLs. States does use a walker when feeling weak. Transportation: Patient drives, uses [employer] to transport to HD DME: BSC, Walker, Glucometer, Home O2 prn 2L-does not remember DME Company. States has Portable O2 tanks. HHC: Past- cannot recall Agency SNF: Past- cannot recall 2 different facilities in [place] Goal: Home, does not think will have any needs. Denies any questions, concerns, or issues with DC planning at this time. Aware CM remains available for any emerging needs. DC PLAN: Home with no anticipated needs identified at this time. Resumption of HD. Tavia Rodriguez RNCM
[2019-02-17 11:36] LABS: Bedside Glucose 168 mg/dL (70-110)
[2019-02-17 17:46] LABS: Bedside Glucose 400 mg/dL (70-110)
[2019-02-17 22:35] LABS: Bedside Glucose 117 mg/dL (70-110)
[2019-02-17 23:56] LABS: Bedside Glucose 98 mg/dL (70-110)
[2019-02-18] VITALS (8 sets, daily range): BP systolic 133–149; BP diastolic 67–71; PULSE 78–91; RESP 14–18; TEMP 36.1–36.4; O2SAT 82–98
[2019-02-18] MEDS: Latanoprost 0.005% 1 Bottle 1 DRP EACH EYE (00:46)
[2019-02-18] MEDS: Heparin Injection (Vial) 5,000 UNIT/ML VIAL 5000 UNIT SC ×2 (00:46→06:31)
[2019-02-18] MEDS: Pramipexole Di-HCl 0.25 MG Tablet PO (00:46)
[2019-02-18] MEDS: 0.9% NaCl Peripheral Flush Adult/Peds IV ×2 (05:51→05:53)
[2019-02-18 06:07] LABS: Absolute Lymphocyte Count 0.67 X10^3/uL (0.83-4.51); Absolute Neutrophil Count 2.8 X10^3/uL (2.0-7.7); Basophil# 0.02 X10^3/uL; Basophil% 0.5 % (0-1); Eosinophil# 0.23 X10^3/uL; Eosinophils% 5.5 % (0-5); Hematocrit 23.7 % (37-47); Hemoglobin 7.8 g/dL (12.0-15.0); Lymphocyte # 0.67 X10^3/ul (4.0); Lymphocyte % 16.1 % (19-41); Mean Corp Hgb Conc 32.9 g/dL (32-36); Mean Corpuscular Hgb 32.2 pg (27.0-32.0); Mean Corpuscular Volume 97.9 fL (81-99); Monocyte% 9.6 % (0-10); NRBC Flagged by Analyzer 0 % (0-5); Neutrophil # 2.82 X10^3/uL (2.7-7.7); Neutrophil % 67.6 % (47-70); Platelet Count 154 K/mm3 (150-450); RBC Distribution Width CV 12.5 % (11.6-14.6); RBC Distribution Width SD 44.7 fl (35.1-43.9); Red Blood Count 2.42 M/mm3 (4.2-5.4); White Blood Count 4.2 K/mm3 (4.4-11.0)
[2019-02-18 06:21] LABS: Albumin, Serum 1.9 g/dL (3.2-5.0); BUN 32 mg/dL (7-18); BUN/Creat Ratio 7.3 RATIO (10-20); Chloride 98 mmol/L (98-107); Creatinine, Serum 4.36 mg/dL (0.55-1.02); EST Glomerular Filtration Rate 12 mL/min (>60); Est Glom Filt Rate - Afr Amer 14 mL/min (>60); Estimated Creatinine Clearance 13.63 ml/min; Glucose 144 mg/dL (74-106); Phosphorus 6.1 mg/dL (2.5-4.9); Potassium 4.2 mmol/L (3.5-5.1); Sodium Level 135 mmol/L (136-145)
[2019-02-18] MEDS: Insulin Lispro 100 UNIT/ML INSULN.PEN SC ×5 (07:56→17:32)
--- NOTE | 2019-02-18 08:03 | CPS ---
pt placed back on 2 lpm
--- NOTE | 2019-02-18 09:36 | CASEMGMT ---
LW/Medical POA forms scanned into summary tab of stacy, Mulu Patiño is listed as pt's medical POA. SHARLA Aguilar
--- NOTE | 2019-02-18 10:15 | CASEMGMT ---
Addendum entered by Fe Kimball 02/18/19 10:31: Call to Alec at [facility] and she states that they received referral for pt and pt declined their services previously. Klaus POLLARD CM Original Note: This RN CM to room to discuss discharge plan with pt at this time. Pt states has oxygen concentrator and portable tanks at home and states no concerns with going home with increased oxygen need. Pt is unable to remember home oxygen company at this time and states that it was set up through [facility] at some point. Pt declines need for HHC or any other services at discharge at this time. Klaus POLLARD CM
--- NOTE | 2019-02-18 10:20 | PN_ITS ---
Subjective: Patient transferred out of the intensive care unit yesterday. No complications overnight. Patient has been on minimal nasal cannula oxygen, particularly with sleep. Patient was seen on hemodialysis and was reportedly tolerating well. Patient had no complaints during my evaluation. General: Alert, Oriented x3, Cooperative, No apparent distress, Well developed, Well nourished, - - Obese. No conversational dyspnea. HEENT: Atraumatic, PERRLA, EOMI, Normocephalic, - - No scleral icterus or in jection noted. Oral: Moist Mucosa, No Gingival or Mucosal Lesions/ Ulcerations Neck: Supple, No JVD, No Nodes, Trachea Midline Lungs: Clear to auscultation, Normal air movement, No rhonchi, No wheeze, No rales Cardiovascular: Regular rate, Regular Rhythm, Normal S1, Normal S2, No murmurs, No rub noted, No Gallop Abdomen: Bowel Sounds Present, Soft, Non Tender, Non-Distended, Obese Extremities: No clubbing, No cyanosis, Edema Skin: - - No significant change compared to previous Musculoskeletal: No Tenderness to Palpation of Joints or Extremities Lymphatic: No Cervical, Supraclavicular, or Inguinal Adenopathy Neurological: Cranial nerves II-XII grossly intact, Neuro grossly intact, Motor Exam 5/5 strength throughout Psych/Mental Status: Alert and oriented to time, place, person, mood and affect Vital Signs Temp Pulse Resp BP Pulse Ox 36.4 C L 89 18 133/67 H 96 02/18/19 10:00 02/18/19 10:00 02/18/19 10:00 02/18/19 10:00 02/18/19 10:00 Oxygen Flow Rate (L/min) 2 Oxygen Delivery Method Room Air Weight: 83.8 kg Body Mass Index (BMI) 32.1 Finger Stick Blood Glucose 250 Intake and Output for Last 24 Hours 02/16/19 02/17/19 02/18/19 23:59 23:59 23:59 Intake Total 12.21 / 252.21 1725 / 1725 120 / 120 Output Total 3500 / 3500 Balance -3487.79 / -3247.79 1725 / 1725 120 / 120 Labs (Last 48 Hours) 02/16/19 02/16/19 02/16/19 15:30 15:30 15:30 WBC 5.5 RBC 2.90 L Hgb 9.1 L Hct 29.0 L MCV 100.0 H MCH 31.4 MCHC 31.4 L RDW Std Deviation 46.4 H RDW Coeff of Tegan 12.8 Plt Count 152 MPV 11.4 Immature Gran % (Auto) 0.700 Neut % (Auto) 76.5 H Lymph % (Auto) 10.3 L Meagher % (Auto) 7.3 Eos % (Auto) 4.7 Baso % (Auto) 0.5 Absolute Neuts (auto) 4.2 Absolute Lymphs (auto) 0.57 L Nucleated RBC % 0 Differential Comment SCANNED Sodium 125 L Potassium 7.5 H* Chloride 92 L Carbon Dioxide 22.0 Anion Gap 11 BUN 67 H Creatinine 7.68 H* Estim Creat Clear Calc 8.06 Est GFR (MDRD) Af Amer 7 L Est GFR (MDRD) Non-Af 6 L BUN/Creatinine Ratio 8.7 L Glucose 636 H* Calcium 7.5 L Phosphorus Total Bilirubin 0.50 AST 34 ALT 19 Alkaline Phosphatase 262 H Ammonia Troponin I 0.051 H Total Protein 7.0 Albumin 2.4 L Globulin 4.6 H Albumin/Globulin Ratio 0.5 L Lipase 211 CA 125 Antigen Vitamin B12 363 Folate TSH 7.40 H Free T4 Free T3 pg/dL POC Glucose 02/16/19 02/16/19 02/16/19 17:25 18:31 19:09 WBC RBC Hgb Hct MCV MCH MCHC RDW Std Deviation RDW Coeff of Tegan Plt Count MPV Immature Gran % (Auto) Neut % (Auto) Lymph % (Auto) Meagher % (Auto) Eos % (Auto) Baso % (Auto) Absolute Neuts (auto) Absolute Lymphs (auto) Nucleated RBC % Differential Comment Sodium Potassium Chloride Carbon Dioxide Anion Gap BUN Creatinine Estim Creat Clear Calc Est GFR (MDRD) Af Amer Est GFR (MDRD) Non-Af BUN/Creatinine Ratio Glucose Calcium Phosphorus Total Bilirubin AST ALT Alkaline Phosphatase Ammonia 17.0 Troponin I Total Protein Albumin Globulin Albumin/Globulin Ratio Lipase CA 125 Antigen Vitamin B12 Folate TSH Free T4 Free T3 pg/dL POC Glucose > 500 H* > 500 H* 02/16/19 02/16/19 02/16/19 19:30 19:30 19:30 WBC RBC Hgb Hct MCV MCH MCHC RDW Std Deviation RDW Coeff of Tegan Plt Count MPV Immature Gran % (Auto) Neut % (Auto) Lymph % (Auto) Meagher % (Auto) Eos % (Auto) Baso % (Auto) Absolute Neuts (auto) Absolute Lymphs (auto) Nucleated RBC % Differential Comment Sodium 129 L Potassium 5.7 H Chloride 96 L Carbon Dioxide 23.0 Anion Gap 10 BUN 61 H Creatinine 6.72 H Estim Creat Clear Calc 9.21 Est GFR (MDRD) Af Amer 8 L Est GFR (MDRD) Non-Af 7 L BUN/Creatinine Ratio 9.1 L Glucose Cancelled 592 H* Calcium 7.3 L Phosphorus Total Bilirubin AST ALT Alkaline Phosphatase Ammonia Troponin I Total Protein Albumin Globulin Albumin/Globulin Ratio Lipase CA 125 Antigen Vitamin B12 Folate 12.00 TSH Free T4 0.53 L Free T3 pg/dL 0.9 L POC Glucose 02/16/19 02/16/19 02/16/19 20:04 20:55 22:02 WBC RBC Hgb Hct MCV MCH MCHC RDW Std Deviation RDW Coeff of Tegan Plt Count MPV Immature Gran % (Auto) Neut % (Auto) Lymph % (Auto) Meagher % (Auto) Eos % (Auto) Baso % (Auto) Absolute Neuts (auto) Absolute Lymphs (auto) Nucleated RBC % Differential Comment Sodium Potassium Chloride Carbon Dioxide Anion Gap BUN Creatinine Estim Creat Clear Calc Est GFR (MDRD) Af Amer Est GFR (MDRD) Non-Af BUN/Creatinine Ratio Glucose Calcium Phosphorus Total Bilirubin AST ALT Alkaline Phosphatase Ammonia Troponin I Total Protein Albumin Globulin Albumin/Globulin Ratio Lipase CA 125 Antigen Vitamin B12 Folate TSH Free T4 Free T3 pg/dL POC Glucose 414 H 247 H 118 H 02/16/19 02/17/19 02/17/19 23:10 02:05 04:20 WBC 5.5 RBC 2.54 L Hgb 8.1 L Hct 24.4 L MCV 96.1 MCH 31.9 MCHC 33.2 RDW Std Deviation 44.6 H RDW Coeff of Tegan 12.8 Plt Count 160 MPV 11.4 Immature Gran % (Auto) 1.100 H Neut % (Auto) 71.1 H Lymph % (Auto) 12.9 L Meagher % (Auto) 9.7 Eos % (Auto) 4.7 Baso % (Auto) 0.5 Absolute Neuts (auto) 3.9 Absolute Lymphs (auto) 0.71 L Nucleated RBC % 0 Differential Comment Sodium 134 L Potassium 4.2 Chloride 100 Carbon Dioxide 27.0 Anion Gap 7 BUN 35 H Creatinine 4.46 H Estim Creat Clear Calc 13.32 Est GFR (MDRD) Af Amer 14 L Est GFR (MDRD) Non-Af 11 L BUN/Creatinine Ratio 7.8 L Glucose 93 Calcium 7.7 L Phosphorus Total Bilirubin AST ALT Alkaline Phosphatase Ammonia Troponin I Total Protein Albumin Globulin Albumin/Globulin Ratio Lipase CA 125 Antigen Vitamin B12 Folate TSH Free T4 Free T3 pg/dL POC Glucose 141 H 02/17/19 02/17/19 02/17/19 04:20 04:20 06:55 WBC RBC Hgb Hct MCV MCH MCHC RDW Std Deviation RDW Coeff of Tegan Plt Count MPV Immature Gran % (Auto) Neut % (Auto) Lymph % (Auto) Meagher % (Auto) Eos % (Auto) Baso % (Auto) Absolute Neuts (auto) Absolute Lymphs (auto) Nucleated RBC % Differential Comment Sodium 136 Potassium 5.4 H Chloride 100 Carbon Dioxide 28.0 Anion Gap 8 BUN 38 H Creatinine 4.76 H Estim Creat Clear Calc 12.48 Est GFR (MDRD) Af Amer 13 L Est GFR (MDRD) Non-Af 10 L BUN/Creatinine Ratio 8.0 L Glucose 165 H Calcium 7.3 L Phosphorus 6.8 H Total Bilirubin 0.30 AST 33 ALT 18 Alkaline Phosphatase 205 H Ammonia Troponin I Total Protein 5.9 L Albumin 2.2 L Globulin 3.7 Albumin/Globulin Ratio 0.6 L Lipase CA 125 Antigen Vitamin B12 Folate TSH Free T4 Free T3 pg/dL POC Glucose 154 H 02/17/19 02/17/19 02/17/19 08:20 11:28 17:27 WBC RBC Hgb Hct MCV MCH MCHC RDW Std Deviation RDW Coeff of Tegan Plt Count MPV Immature Gran % (Auto) Neut % (Auto) Lymph % (Auto) Meagher % (Auto) Eos % (Auto) Baso % (Auto) Absolute Neuts (auto) Absolute Lymphs (auto) Nucleated RBC % Differential Comment Sodium Potassium Chloride Carbon Dioxide Anion Gap BUN Creatinine Estim Creat Clear Calc Est GFR (MDRD) Af Amer Est GFR (MDRD) Non-Af BUN/Creatinine Ratio Glucose Calcium Phosphorus Total Bilirubin AST ALT Alkaline Phosphatase Ammonia Troponin I Total Protein Albumin Globulin Albumin/Globulin Ratio Lipase CA 125 Antigen Pending Vitamin B12 Folate TSH Free T4 Free T3 pg/dL POC Glucose 168 H 400 H 02/17/19 02/17/19 02/18/19 22:16 23:48 05:50 WBC 4.2 L RBC 2.42 L Hgb 7.8 L Hct 23.7 L MCV 97.9 MCH 32.2 H MCHC 32.9 RDW Std Deviation 44.7 H RDW Coeff of Tegan 12.5 Plt Count 154 MPV 11.0 Immature Gran % (Auto) 0.700 Neut % (Auto) 67.6 Lymph % (Auto) 16.1 L Meagher % (Auto) 9.6 Eos % (Auto) 5.5 H Baso % (Auto) 0.5 Absolute Neuts (auto) 2.8 Absolute Lymphs (auto) 0.67 L Nucleated RBC % 0 Differential Comment Sodium Potassium Chloride Carbon Dioxide Anion Gap BUN Creatinine Estim Creat Clear Calc Est GFR (MDRD) Af Amer Est GFR (MDRD) Non-Af BUN/Creatinine Ratio Glucose Calcium Phosphorus Total Bilirubin AST ALT Alkaline Phosphatase Ammonia Troponin I Total Protein Albumin Globulin Albumin/Globulin Ratio Lipase CA 125 Antigen Vitamin B12 Folate TSH Free T4 Free T3 pg/dL POC Glucose 117 H 98 02/18/19 05:50 WBC RBC Hgb Hct MCV MCH MCHC RDW Std Deviation RDW Coeff of Tegan Plt Count MPV Immature Gran % (Auto) Neut % (Auto) Lymph % (Auto) Meagher % (Auto) Eos % (Auto) Baso % (Auto) Absolute Neuts (auto) Absolute Lymphs (auto) Nucleated RBC % Differential Comment Sodium 135 L Potassium 4.2 Chloride 98 Carbon Dioxide 31.0 Anion Gap BUN 32 H Creatinine 4.36 H Estim Creat Clear Calc 13.63 Est GFR (MDRD) Af Amer 14 L Est GFR (MDRD) Non-Af 12 L BUN/Creatinine Ratio 7.3 L Glucose 144 H Calcium 7.0 L Phosphorus 6.1 H Total Bilirubin AST ALT Alkaline Phosphatase Ammonia Troponin I Total Protein Albumin 1.9 L Globulin Albumin/Globulin Ratio Lipase CA 125 Antigen Vitamin B12 Folate TSH Free T4 Free T3 pg/dL POC Glucose Medical Necessity - Tobacco Use Smoking Status: Former smoker Tobacco Use: Non-smoker Assessment/Plan All Active Problems (Last Updated 01/24/19 @ 13:27 by Daniella Donald MD) Hyperkalemia (Acute) Hyperglycemia (Acute) Ascites (Acute) RECOMMENDATIONS: 1. Defer to renal on hemodialysis schedule 2. Hyperglycemia much improved on current care plan 3. Await records from [facility] concerning ascites 4. We will dynamically stable. Will sign off from a pulmonary/critical care perspective IMPRESSIONS: 1. Hyperkalemia secondary to end-stage renal disease secondary to missed dialysis Patient appears to be much improved today. Patient is receiving hemodialysis and tolerating this well. Potassium and glucose are much improved. No significant ectopy noted. 2. HHS and uncontrolled type 2 diabetes mellitus Patient's blood sugars are much controlled at this time. Patient tolerati ng a p.o. diet. 3. Ascites Unclear if patient has malignant ascites versus SBP. Patient just had a paracentesis while admitted at [facility] 5 days ago. Need to confirm test results. Patient does not have any significant leukocytosis, fever or acute abdomen signs or symptoms. Likely okay to discontinue antibiotics from my perspective unless patient develops constitutional symptoms. 4. Hypertension/anxiety/probable anemia of chronic disease/elevated TSH/poor historian Complicates care, management, recovery and prognosis. Likely okay to continue with baseline medications at this time. Clinical suspicion for euthyroid sick syndrome. Would recommend thyroid work-up as an outpatient. Unclear if patient is aware of reported diagnosis from recent hospitalization. Code Visit Inpatient E&M: 40884 Subs Hosp L2
--- NOTE | 2019-02-18 10:29 | PN.RENAL_ITS ---
Patient Problems: Active and Suspected Problems (Last Updated 01/24/19 @ 13:27 by Dnaiella Donald MD) Hyperkalemia (Acute) Hyperglycemia (Acute) Ascites (Acute) Not verified from [facility] yet Subjective: no new events - Physical Exam General: Alert, Oriented x3, Cooperative HEENT: Atraumatic, PERRLA, EOMI, Normocephalic Neck: Supple, No JVD, Negative Carotid Bruits Lungs: Clear to auscultation, Normal air movement Cardiovascular: Regular rate, No murmurs Abdomen: Bowel Sounds Present, Soft, Non Tender Extremities: No edema, Capillary Refill Less than 3 Seconds Skin: No rashes, No breakdown Musculoskeletal: No Tenderness to Palpation of Joints or Extremities Neurological: Cranial nerves II-XII grossly intact Psych/Mental Status: Normal Affect, Appropriate Vital Signs Temp Pulse Resp BP Pulse Ox 97.6 F L 89 18 133/67 H 96 02/18/19 10:00 02/18/19 10:00 02/18/19 10:00 02/18/19 10:00 02/18/19 10:00 Oxygen Flow Rate (L/min) 2 Oxygen Delivery Method Room Air Weight: 83.8 kg Body Mass Index (BMI) 32.1 Finger Stick Blood Glucose 250 Intake and Output for Last 24 Hours 02/16/19 02/17/19 02/18/19 23:59 23:59 23:59 Intake Total 12.21 / 252.21 1725 / 1725 120 / 120 Output Total 3500 / 3500 Balance -3487.79 / -3247.79 1725 / 1725 120 / 120 Laboratory Tests Past 24 Hrs 02/18/19 02/18/19 05:50 05:50 WBC 4.2 L RBC 2.42 L Hgb 7.8 L Hct 23.7 L MCV 97.9 MCH 32.2 H MCHC 32.9 RDW Std Deviation 44.7 H RDW Coeff of Tegan 12.5 Plt Count 154 MPV 11.0 Immature Gran % (Auto) 0.700 Neut % (Auto) 67.6 Lymph % (Auto) 16.1 L [place] % (Auto) 9.6 Eos % (Auto) 5.5 H Baso % (Auto) 0.5 Absolute Neuts (auto) 2.8 Absolute Lymphs (auto) 0.67 L Nucleated RBC % 0 Sodium 135 L Potassium 4.2 Chloride 98 Carbon Dioxide 31.0 BUN 32 H Creatinine 4.36 H Estim Creat Clear Calc 13.63 Est GFR (MDRD) Af Amer 14 L Est GFR (MDRD) Non-Af 12 L BUN/Creatinine Ratio 7.3 L Glucose 144 H Calcium 7.0 L Phosphorus 6.1 H Albumin 1.9 L POC Glucose 02/17/19 02/17/19 02/17/19 23:48 22:16 17:27 POC Glucose 98 117 H 400 H 02/17/19 11:28 POC Glucose 168 H Medical Necessity - Tobacco Use Smoking Status: Former smoker Tobacco Use: Non-smoker Assessment/Plan All Active Problems (Last Updated 01/24/19 @ 13:27 by Daniella Donald MD) Hyperkalemia (Acute) Hyperglycemia (Acute) Ascites (Acute) ESRD. seen on HD today Hyperkalemia. s/p HD. better Edema. fluid removal as tolerated ascitis. recently tapped here. cytology negative. there was noted to be loculated effusion on initial CT.
--- NOTE | 2019-02-18 10:34 | DCINST_ITS ---
- Discharge Diagnoses Current Active Problems: Current Active and Chronic Problems (Last Updated 01/24/19 @ 13:27 by Daniella Donald MD) Hyperkalemia (Acute) Hyperglycemia (Acute) Ascites (Acute) Not verified from [facility] yet Reason(s) for Visit for Discharge Instructions: Shortness of breath You will use the following diet at home:: Calorie/Carbohydrate Controlled (specify 1200, 1400, etc), Cardiac Your food should be the consistency of: Regular Your liquids should be the consistency of: Regular/Thin Discharge Activity: Return to Normal Activity Additional Instructions: You are advised to continue with dialysis as scheduled. Follow-up with Dr. Dupree within 1 to 2 weeks. Continue to measure her blood glucose. Continue on insulin regimen as described. Follow-up with your primary care doctor within 1 to 2 weeks with a log of your blood sugars. Continue to use your oxygen all the time. Continue to use her incentive spirometer. Allergies/Adverse Reactions: Allergies levothyroxine sodium [From Synthroid] Allergy (Verified 02/16/19 15:14) Swelling Penicillins [PCN] Allergy (Verified 02/16/19 14:42) Hives Medications to take at Discharge Albuterol Inhaler [Ventolin Hfa] 2 puff INHALATION Q4H PRN PRN 10/28/16 Allopurinol [Zyloprim] 200 mg PO DAILY 10/28/16 Ergocalciferol [Vitamin D] 50,000 unit PO MOWEFR 10/28/16 Fluticasone 0.05% [Flonase Nasal [place]] 1 spray NASAL DAILY PRN PRN 10/28/16 Gabapentin [Neurontin] 300 mg PO DAILY 10/28/16 Latanoprost 0.005% [Xalatan Opthalmic] 1 drop EACH EYE QHS 10/28/16 Sevelamer Carbonate [Renvela] 3,200 mg PO TID 05/17/17 ALPRAZolam [Xanax] 0.5 mg PO TID PRN PRN 11/22/18 Ascorbic Acid [Vitamin C] 500 mg PO UD 11/22/18 Ropinirole HCl [Requip] 0.5 mg PO QHS 11/22/18 Vit B Comp No.3/Folic/C/Biotin [Nephro-Reggie Rx Tablet] 1 ea PO DAILY 07/06/19 Ondansetron HCl [Zofran] 4 mg PO Q6H PRN PRN #20 tab 01/28/19 Pantoprazole Sodium [Protonix] 40 mg PO DAILY #30 tab 01/28/19 Insulin Glargine [Lantus SoloStar Pen] 3 units SUBCUT QHS 02/16/19 Insulin Lispro [Humalog KwikPen] 2 units SQ TID 02/16/19 Insulin Glargine [Lantus SoloStar Pen] 5 units SUBCUT QHS #1 pen 02/18/19 Insulin Lispro [Humalog KwikPen] 2 unit SUBCUT BREAKFAST #0 insuln.pen 02/18/19 Insulin Lispro [Humalog KwikPen] 2 unit SUBCUT DINNER insuln.pen 02/18/19 Insulin Lispro [Humalog KwikPen] 2 unit SUBCUT LUNCH insuln.pen 02/18/19 The following prescriptions were given: Insulin Glargine [Lantus SoloStar Pen] 5 units SUBCUT QHS #1 pen Transmission Status: Pending to [facility]/pharmacy #[id number] Primary Care Physician: Elijah Curtis MD [Primary Care Provider] - Please follow up with your Primary Care Physician in: within 1-2 weeks Test Results: Test results from this visit will be discussed in further detail at your follow- up appointment, if applicable. Please Follow Up With: Nia Cannon MD When: as scheduled Please Follow Up With: Bandar Dupree MD When: within 1-2 weeks Please Follow Up With: Joshua Mclean MD When: within 1-2 weeks Proposed Discharge Date: 02/18/19
--- NOTE | 2019-02-18 10:45 | PCM.DC.SUM ---
Discharge Date and Diagnosis Date of Admission: 02/16/19 Date of Discharge: 02/18/19 - Primary Discharge Diagnosis Active and Suspected Problems (Last Updated 01/24/19 @ 13:27 by Daniella Donald MD) Hyperkalemia HHS Probable Spontaneous bacterial peritonitis Fluid overload state from missed dialysis - Secondary Discharge Diagnosis Chronic Problems (Last Updated 01/24/19 @ 13:27 by Daniella Donald MD) Abnormal LFTs (Chronic) End stage renal disease on dialysis (Chronic) Polyclonal gammopathy (Chronic) PAF (paroxysmal atrial fibrillation) (Chronic) Glaucoma (Chronic) Depression (Chronic) Hyperuricemia (Chronic) Hypertension (Chronic) DM type 1 (diabetes mellitus, type 1) (Chronic) Anemia (Chronic) Hospital Course and Treatment Imaging Results: Clinical Impression(s) from Imaging Studies Chest X-Ray 02/16/19 14:52 IMPRESSION: No acute thoracic pathology. Electronically Signed: Attila Swartz, at 15:15 EDT Tel , Service support , None Operations: None Procedures: None Summary of Care Provided: 48-year-old female with past medical history of ESRD on hemodialysis, M-W-F, ascites of unclear etiology who comes in with progressive weakness shortness of breath having missed 2 dialysis sessions( Saturday and Saturday). Patient was found to be hyperkalemic in the emergency department. Potassium was 7.5 with peaked T waves. She received calcium gluconate, Kayexalate, bicarbonate in the emergency department. Patient received emergent dialysis in the ICU. She was also found to be in HHS, with admitting blood sugar more than 700. She was started on insulin drip and transitioned off insulin drip the next day. On admission, patient complained of generalized abdominal tenderness and continuous bronchial peritonitis was suspected. Patient has history of penicillin allergy and received aztreonam 1 g. She was discharged on Cipro to complete 1 week of treatment. Review of records from the [facility] where patient was recently discharged confirmed ascites of unknown origin. No malignancy was found. 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 Gynecology was consulted. Review of records showed no malignancy. Patient's abdominal distention improved with dialysis. Review of previous ascitic fluid albumin and calculation of sac gradient showed less than 1.1. Most likely etiology for patient's ascites will be sided heart failure with cardiac related ascites. Patient's previous 2D echo showed EF of 60%, stage I diastolic dysfunction. Patient does not make urine so fluid removal has to be aggressive through dialysis. Cautioned on oral fluid restriction and low salt diet. I feel there is a large component of noncompliance of this in this patient. She was also referred to telegraph office manager Dr. Dupree. TSH was done on admission there was found to be elevated. T3-T4 were also known. Patient admits to being diagnosed with hypothyroidism before. She however had an adverse reaction to levothyroxine with generalized swelling, hence her documented allergy to levothyroxine. He was referred to the highway patrol pilot for further work-up. Subjective: On the day of discharge, patient was seen and examined. She felt improved. Denied any complaints. Objective: Physical Exam General: Alert, Oriented x3, Cooperative, - appears improved, pale HEENT: Atraumatic, PERRLA, EOMI, Normocephalic Neck: Supple Lungs: Clear to auscultation, Normal air movement Cardiovascular: Regular rate, Regular Rhythm, Normal S1, Normal S2, No murmurs Abdomen: Bowel Sounds Present, Soft, Non Tender, Non-Distended, No Hepato-splenomegaly Extremities: Edema - Bilateral +1 pedal edema Skin: No rashes, - - Dry skin Musculoskeletal: No Tenderness to Palpation of Joints or Extremities Lymphatic: No Cervical, Supraclavicular, or Inguinal Adenopathy Neurological: Cranial nerves II-XII grossly intact, Neuro grossly intact Psych/Mental Status: Normal Affect, Appropriate Vitals/I&O's: - Physical Exam Vital Signs Temp Pulse Resp BP Pulse Ox 97.6 F L 89 18 133/67 H 96 02/18/19 10:02/18/19 10:02/18/19 10:02/18/19 10:02/18/19 10:00 Oxygen Flow Rate (L/min) 2 Oxygen Delivery Method Room Air Weight: 83.8 kg Body Mass Index (BMI) 32.1 Finger Stick Blood Glucose 250 Intake and Output for Last 24 Hours 02/16/19 02/17/19 02/18/19 23:59 23:59 23:59 Intake Total 12.21 / 252.21 1725 / 1725 120 / 120 Output Total 3500 / 3500 Balance -3487.79 / -3247.79 1725 / 1725 120 / 120 Laboratory Tests Past 24 Hrs 02/18/19 02/18/19 05:50 05:50 WBC 4.2 L RBC 2.42 L Hgb 7.8 L Hct 23.7 L MCV 97.9 MCH 32.2 H MCHC 32.9 RDW Std Deviation 44.7 H RDW Coeff of Tegan 12.5 Plt Count 154 MPV 11.0 Immature Gran % (Auto) 0.700 Neut % (Auto) 67.6 Lymph % (Auto) 16.1 L [place] % (Auto) 9.6 Eos % (Auto) 5.5 H Baso % (Auto) 0.5 Absolute Neuts (auto) 2.8 Absolute Lymphs (auto) 0.67 L Nucleated RBC % 0 Sodium 135 L Potassium 4.2 Chloride 98 Carbon Dioxide 31.0 BUN 32 H Creatinine 4.36 H Estim Creat Clear Calc 13.63 Est GFR (MDRD) Af Amer 14 L Est GFR (MDRD) Non-Af 12 L BUN/Creatinine Ratio 7.3 L Glucose 144 H Calcium 7.0 L Phosphorus 6.1 H Albumin 1.9 L POC Glucose 02/17/19 02/17/19 02/17/19 23:48 22:16 17:27 POC Glucose 98 117 H 400 H 02/17/19 11:28 POC Glucose 168 H Discharge Diet: Low fat/ Low Cholesterol, 2000 mg Sodium Diet Discharge Activity: Return to Normal Activity Home Medications: Medications to take at Discharge Albuterol Inhaler [Ventolin Hfa] 2 puff INHALATION Q4H PRN PRN 10/28/16 Allopurinol [Zyloprim] 200 mg PO DAILY 10/28/16 Ergocalciferol [Vitamin D] 50,000 unit PO MOWEFR 10/28/16 Fluticasone 0.05% [Flonase Nasal [place]] 1 spray NASAL DAILY PRN PRN 10/28/16 Gabapentin [Neurontin] 300 mg PO DAILY 10/28/16 Latanoprost 0.005% [Xalatan Opthalmic] 1 drop EACH EYE QHS 10/28/16 Sevelamer Carbonate [Renvela] 3,200 mg PO TID 05/17/17 ALPRAZolam [Xanax] 0.5 mg PO TID PRN PRN 11/22/18 Ascorbic Acid [Vitamin C] 500 mg PO UD 11/22/18 Ropinirole HCl [Requip] 0.5 mg PO QHS 11/22/18 Vit B Comp No.3/Folic/C/Biotin [Nephro-Reggie Rx Tablet] 1 ea PO DAILY 11/22/18 Ondansetron HCl [Zofran] 4 mg PO Q6H PRN PRN #20 tab 01/28/19 Pantoprazole Sodium [Protonix] 40 mg PO DAILY #30 tab 01/28/19 Insulin Glargine [Lantus SoloStar Pen] 3 units SUBCUT QHS 02/16/19 Insulin Lispro [Humalog KwikPen] 2 units SQ TID 02/16/19 Insulin Glargine [Lantus SoloStar Pen] 5 units SUBCUT QHS #1 pen 02/18/19 Insulin Lispro [Humalog KwikPen] 2 unit SUBCUT BREAKFAST #0 insuln.pen 02/18/19 Insulin Lispro [Humalog KwikPen] 2 unit SUBCUT DINNER insuln.pen 02/18/19 Insulin Lispro [Humalog KwikPen] 2 unit SUBCUT LUNCH insuln.pen 02/18/19 Following Prescrptions Were Given to Patient: Insulin Glargine [Lantus SoloStar Pen] 5 units SUBCUT QHS #1 pen Transmission Status: Received by [facility]/pharmacy #[id number] Primary Care Physician: Elijah Curtis MD [Primary Care Provider] - Please follow up with your Primary Care Physician in: within 1-2 weeks Please Follow Up With: Nia Cannon MD When: as scheduled Please Follow Up With: Bandar Dupree MD When: within 1-2 weeks Please Follow Up With: Joshua Mclean MD When: within 1-2 weeks Disposition: Home Minutes spent on discharge:: 40 Patient Condition:: Stable Medical Necessity - Tobacco Use Smoking Status: Former smoker Tobacco Use: Non-smoker Meaningful Use Info Meaningful Use Diagnoses (Choose all that apply): None applicable Code Visit Inpatient E&M: 42994 [facility] Hosp L2
[2019-02-18 11:25] LABS: Bedside Glucose 205 mg/dL (70-110)
--- NOTE | 2019-02-18 11:32 | PHA.DC.MR ---
Pharmacy Service has performed discharge medication reconciliation for this patient. No new medications. The patient's discharge medication list was reviewed for discrepancies and discrepancies were resolved. Home Medications Albuterol Inhaler [Ventolin Hfa] 2 puff INHALATION Q4H PRN PRN 10/28/16 Allopurinol [Zyloprim] 200 mg PO DAILY 10/28/16 Ergocalciferol [Vitamin D] 50,000 unit PO MOWEFR 10/28/16 Fluticasone 0.05% [Flonase Nasal Byron] 1 spray NASAL DAILY PRN PRN 10/28/16 Gabapentin [Neurontin] 300 mg PO DAILY 10/28/16 Latanoprost 0.005% [Xalatan Opthalmic] 1 drop EACH EYE QHS 10/28/16 Sevelamer Carbonate [Renvela] 3,200 mg PO TID 05/17/17 ALPRAZolam [Xanax] 0.5 mg PO TID PRN PRN 11/22/18 Ascorbic Acid [Vitamin C] 500 mg PO UD 11/22/18 Ropinirole HCl [Requip] 0.5 mg PO QHS 11/22/18 Vit B Comp No.3/Folic/C/Biotin [Nephro-Reggie Rx Tablet] 1 ea PO DAILY 11/22/18 Ondansetron HCl [Zofran] 4 mg PO Q6H PRN PRN #20 tab 01/28/19 Pantoprazole Sodium [Protonix] 40 mg PO DAILY #30 tab 01/28/19 Insulin Glargine [Lantus SoloStar Pen] 3 units SUBCUT QHS 02/16/19 Insulin Lispro [Humalog KwikPen] 2 units SQ TID 02/16/19 Insulin Glargine [Lantus SoloStar Pen] 5 units SUBCUT QHS #1 pen 02/18/19 Insulin Lispro [Humalog KwikPen] 2 unit SUBCUT BREAKFAST #0 insuln.pen 02/18/19 Insulin Lispro [Humalog KwikPen] 2 unit SUBCUT DINNER insuln.pen 02/18/19 Insulin Lispro [Humalog KwikPen] 2 unit SUBCUT LUNCH insuln.pen 02/18/19
[2019-02-18] MEDS: Allopurinol 100 MG Tablet 200 MG PO (12:36)
[2019-02-18] MEDS: Gabapentin 300 MG Capsule PO (12:37)
[2019-02-18 12:53] LABS: Cancer Antigen 125 54.2 U/mL (0.0-38.1)
--- NOTE | 2019-02-18 14:14 | DIALYSIS ---
Hemodialysis x 4hrs today. UF -4000mL removed. Pt tolerated tx well. Report to AUTL Adkins. Watts removed stasis achieved dressing applied Pt stable.
[2019-02-18] MEDS: SEVELAMER CARBONATE 800 MG TABLET 3200 MG PO (17:28)
[2019-02-18 17:41] LABS: Bedside Glucose 165 mg/dL (70-110)
--- NOTE | 2019-02-19 13:26 | CASEMGMT ---
ATUL CM Discharge Follow-up Phone Call: ARMAND: Raj Strata: 4 Call Date: 02/19/19 Discharge Date: 02/18/19 Time of Call: 1325 Duration: 0 ? Admitting Diagnosis: Hyperkalemia, Hyperglycemia, Ascites Discharged follow-up call attempted to pt's cell phone. Call went directly to automated message stating voicemail was not available. Nathen Hunt RN
== END 2019-02-18 19:04 | disposition home or self-care (01) | DRG 637 ==
LOC: ED 15:44 → ICU 18:17 → PCU 02-17 10:02
PROVIDERS: Obstetrics & Gynecology; Admitting Provider Internal Medicine; Emergency Provider Emergency Medicine; Family Provider Family Medicine; PCP Family Medicine; Referring Provider Internal Medicine; Visit Provider Internal Medicine
DX: E10.65 Type 1 diabetes mellitus with hyperglycemia (principal); N18.6 End stage renal disease; K65.2 Spontaneous bacterial peritonitis; I12.0 Hypertensive chronic kidney disease with stage 5 chronic kidney disease or end stage renal disease; R18.8 Other ascites; E87.5 Hyperkalemia; E10.22 Type 1 diabetes mellitus with diabetic chronic kidney disease; E87.70 Fluid overload, unspecified; I35.0 Nonrheumatic aortic (valve) stenosis; D89.0 Polyclonal hypergammaglobulinemia; H40.9 Unspecified glaucoma; E79.0 Hyperuricemia without signs of inflammatory arthritis and tophaceous disease; Z79.4 Long term (current) use of insulin; Z87.891 Personal history of nicotine dependence; Z90.710 Acquired absence of both cervix and uterus; Z99.2 Dependence on renal dialysis; Z88.0 Allergy status to penicillin; F32.9 Major depressive disorder, single episode, unspecified
CPT/HCPCS: 36415; 71045; 80048; 80053; 80069; 82140; 82607; 82746; 82962; 83690; 84100; 84439; 84443; 84481; 84484; 85025; 86304; 90937; 93005; 97802; 99285; J7030; A4216; C1751; G0257; J0610

== ENCOUNTER 2019-02-22 18:14 | Emergency (ER) | payer MEDICARE, OTHER, MEDICAID, SELFPAY ==
[2019-02-16 18:38] VITALS: BMI 32.1
[2019-02-22 18:16] VITALS: BP 130/58; PULSE 84; RESP 18; TEMP 36.7; O2SAT 84; BMI 33.5
[2019-02-22 18:20] VITALS: O2SAT 96
--- NOTE | 2019-02-22 18:29 | EKG12_ITS ---
Test Reason : EDEMA Blood Pressure : / mmHG Vent. Rate : 079 BPM Atrial Rate : 079 BPM P-R Int : 200 ms QRS Dur : 090 ms QT Int : 432 ms P-R-T Axes : 037 016 121 degrees QTc Int : 495 ms Normal sinus rhythm Possible Lateral infarct , age undetermined Abnormal ECG Confirmed by MARIAH DIXON ([id number]), city editor MARYAN AMBRIZ ([id number]) on 03/02/2019 3:54:04 PM Referred By: ALEXANDER Confirmed By:MARIAH DIXON
[2019-02-22 18:39] VITALS: O2SAT 97
--- NOTE | 2019-02-22 18:45 | RAD_ITS ---
STUDY: X-RAY CHEST REASON FOR EXAM: Female, 48 years old. Bilateral lower extremity edema. Intermittent shortness of breath. Patient states she has no energy. History of hypertension. Patient has end-stage liver disease and is on dialysis. TECHNIQUE: PA and lateral views of the chest. COMPARISON: Portable AP upright chest x-ray February 16, 2019. FINDINGS: The lungs are under expanded. There are patchy bibasilar densities that most likely reflect atelectasis. Infection is not excluded, however. There is no demonstrated pleural abnormality. There is borderline cardiomegaly. Normal mediastinum and demarcus. Normal visualized pulmonary arteries. There is stable mild atherosclerotic calcification of the aortic arch. Normal visualized thoracic spine. Normal visualized ribs, clavicles, and shoulders. Surgical clips noted in the right upper quadrant of the abdomen. Fluid levels are noted in the stomach as well as segments of nondistended colon in the mid abdomen. RAD/Chest PA and Lateral IMPRESSION: Poor inspiratory effort with patchy bibasilar atelectasis. Borderline cardiac enlargement. No CHF. Electronically Signed: Grady Bermudez MD at 19:00 EDT , Service support ,
[2019-02-22 19:00] LABS: Absolute Lymphocyte Count 0.52 X10^3/uL (0.83-4.51); Absolute Neutrophil Count 3.2 X10^3/uL (2.0-7.7); Basophil# 0.04 X10^3/uL; Basophil% 0.9 % (0-1); Eosinophil# 0.23 X10^3/uL; Eosinophils% 5.3 % (0-5); Hematocrit 24.7 % (37-47); Hemoglobin 7.6 g/dL (12.0-15.0); Lymphocyte # 0.52 X10^3/ul (4.0); Lymphocyte % 12.1 % (19-41); Mean Corp Hgb Conc 30.8 g/dL (32-36); Mean Corpuscular Hgb 31.4 pg (27.0-32.0); Mean Corpuscular Volume 102.1 fL (81-99); Mean Platelet Vol. 11.2 fl (6.2-12.0); Monocyte# 0.32 X10^3/uL; Monocyte% 7.4 % (0-10); NRBC Flagged by Analyzer 0 % (0-5); Neutrophil # 3.16 X10^3/uL (2.7-7.7); Neutrophil % 73.6 % (47-70); POSITIVE DIFFERENTIAL YES; Platelet Count 157 K/mm3 (150-450); Red Blood Count 2.42 M/mm3 (4.2-5.4); White Blood Count 4.3 K/mm3 (4.4-11.0)
--- NOTE | 2019-02-22 19:03 | ED.RN ---
PATIENT DOES NOT URINATE. UNABLE TO GET URINE. DR. MUNOZ NOTIFIED.
[2019-02-22 19:08] LABS: Differential Indicated SCAN CRITERIA MET
[2019-02-22 19:21] LABS: International Normalized Ratio 1.2; Prothrombin Time (Protime)PT. 15.4 SECONDS (11.7-14.9)
[2019-02-22 19:25] LABS: ALB/GLOB Ratio 0.6 RATIO (0.9-2.4); AST(SGOT) 30 U/L (15-37); Alanine Aminotransfer ALT/SGPT 15 U/L (13-56); Albumin, Serum 2.4 g/dL (3.2-5.0); Alkaline Phosphatase 174 U/L (45-117); Anion Gap 11 (5-15); BUN 39 mg/dL (7-18); BUN/Creat Ratio 7.2 RATIO (10-20); Calcium,Total 7.4 mg/dL (8.5-10.1); Chloride 97 mmol/L (98-107); Creatinine, Serum 5.42 mg/dL (0.55-1.02); EST Glomerular Filtration Rate 9 mL/min (>60); Est Glom Filt Rate - Afr Amer 11 mL/min (>60); Estimated Creatinine Clearance 11.42 ml/min; Glucose 499 mg/dL (74-106); Potassium 4.9 mmol/L (3.5-5.1); Protein, Total 6.4 g/dL (6.4-8.2); Sodium Level 135 mmol/L (136-145)
--- NOTE | 2019-02-22 19:26 | ED.RN ---
LAB CALLED WITH CRITICAL LAB RESULTS GLUCOSE 499. DR. MUNOZ MADE AWARE. NO NEW ORDERS AT THIS TIME
[2019-02-22 19:36] LABS: Anisocytosis RARE; Hypochromasia RARE; Macrocytosis RARE; Platelet Estimate ADEQUATE (ADEQ)
--- NOTE | 2019-02-22 19:49 | ED.VIS.GEN ---
History of Present Illness Chief Complaint: Edema Informant: Patient, Family Onset: Today Context: Sudden Onset Timing: Continuous Quality: Malaise, weakness, swelling, decreased appetite Location: Many generalized symptoms Current Severity: Moderate Maximum Severity: Moderate Worsened by: Uncertain Relieved by: Nothing Associated Symptoms: Abdominal distention, and history of hyperglycemia Narrative: Patient is a middle-age woman who was recently admitted discharged in the hospital who has multiple chronic medical problems. She does have end-stage renal disease on hemodialysis Saturday, Saturday and Saturday. She states she was dialyzed on Saturday. She has history of noncompliance. Per family member she has had increased swelling, malaise fatigue and decreased appetite. Review of old records reveals she has an elevated TSH. She has history of Marc's. She complains of subjective fever. Daughter states she is pale. Patient states she has no energy. She denies any urologic symptoms. She denies chest pain or shortness of breath. Family member states she is undergoing malignancy work-up and is scheduled for liver biopsy. Prior similar symptoms: Yes Recent Illness/Hospitalization: Yes - Past Medical History (1) Ascites Status: Acute Comment: Not verified from [facility] yet (2) Abnormal LFTs Status: Chronic (3) Anemia Status: Chronic (4) DM type 1 (diabetes mellitus, type 1) Status: Chronic (5) Depression Status: Chronic (6) End stage renal disease on dialysis Status: Chronic (7) Glaucoma Status: Chronic (8) Hypertension Status: Chronic (9) PAF (paroxysmal atrial fibrillation) Status: Chronic (10) Polyclonal gammopathy Status: Chronic Past Medical History - Allergies and Home Meds Allergies/Adverse Reactions: Allergies levothyroxine sodium [From Synthroid] Allergy (Verified 02/22/19 18:20) Swelling Penicillins [PCN] Allergy (Verified 02/22/19 18:20) Hives Primary Care Physician: Elijah Curtis MD [Primary Care Provider] - Prior records reviewed: Yes Surgical History: cholecystectomy, hysterectomy, tonsillectomy, - - PD catheter placement, tunneled dialysis catheter placement, AVF 06/08/17. Lives: Alone Smoking Status: Former smoker Alcohol: None Drugs: None - Family History Maternal Family History: Reports: Cancer - Thyroid cancer and lung cancer, Diabetes, Heart Disease Paternal Family History: Reports: Diabetes, Heart Disease Review of Systems General: Reports: Chills, Malaise. Denies: Fever, Subjective, Sweats Eyes: Denies: Visual changes - bilaterally, Blurred Vision - bilaterally ENT: Reports: - - Complaint of decreased hearing or ringing in her ears.. Denies: Bilateral ear pain, Rhinorrhea, Sore throat Cardiovascular: Denies: Chest pain, Palpitations Respiratory: Reports: Dyspnea, Dyspnea on exertion. Denies: Cough, Sputum, Orthopnea Gastrointestinal: Reports: Abdominal pain - Distention/fullness, Nausea. Denies: Vomiting, Diarrhea, Constipation, Melena, Hematochezia Genitourinary: Denies: Dysuria, Hematuria, Frequency Musculoskeletal: Reports: Swelling. Denies: Myalgias, Arthralgias, Neck pain, Back pain, Extremity Pain Skin: Denies: Rash, Wounds Neurological: Reports: Weakness. Denies: Headache Psych: Reports: Depression Hematologic: Denies: Easy bruising Allergy: Denies: Uticaria, Swelling of the mouth, Swelling of the tongue Physical Exam Vital Signs/Narrative: Vital Signs Temp Pulse Resp BP Pulse Ox 02/22/19 18:39 97 02/22/19 18:20 96 02/22/19 18:16 98.1 F 84 18 130/58 H 84 Inital Vital Signs reviewed: Yes General: Well developed, - - Appears ill Head: Normocephalic, Atraumatic Eyes: Perrl, EOMI, Pale conjunctiva. Negative for: Scleral icterus ENT: No rhinorrhea, TM's clear. Negative for: Nasal congestion, Sinus tenderness Neck: Supple, Nontender, No lymphadenopathy, No JVD Cardiovascular: Regular rate, Regular rhythm, No murmurs, Normal S1, Normal S2 Respiratory: No distress, Rales - Left lower lobe posteriorly. Negative for: CTA bilaterally, Chest nontender Abdomen: Soft, Nontender, Hypoactive bowel sounds. Negative for: Nondistended, Normal bowel sounds Rectal: Deferred Back: Nontender, Normal Inspection. Negative for: CVA tenderness Extremities: Nontender, Edema - 3+ pitting Skin: No rash, No Trauma, Pallor. Negative for: Cyanosis, Diaphoresis Neurological: Alert, Oriented x3, Cranial nerves II-XII grossly intact, Normal Strength, Normal Sensation Psychological: Depressed Diagnostic/Tx/Re-eval Impressions Chest X-Ray 02/22/19 18:45 IMPRESSION: Poor inspiratory effort with patchy bibasilar atelectasis. Borderline cardiac enlargement. No CHF. Electronically Signed: Grady Bermudez MD at 19:00 EDT , Service support , 02/22/19 18:45 Chest PA and Lateral [RAD] Stat Laboratory Results 02/22/19 02/22/19 02/22/19 18:30 18:30 18:30 WBC 4.3 L RBC 2.42 L Hgb 7.6 L Hct 24.7 L MCV 102.1 H MCH 31.4 MCHC 30.8 L RDW Std Deviation 48.0 H RDW Coeff of Tegan 13.0 Plt Count 157 MPV 11.2 Immature Gran % (Auto) 0.700 Neut % (Auto) 73.6 H Lymph % (Auto) 12.1 L Rankin % (Auto) 7.4 Eos % (Auto) 5.3 H Baso % (Auto) 0.9 Absolute Neuts (auto) 3.2 Absolute Lymphs (auto) 0.52 L Nucleated RBC % 0 Differential Comment SEE COMMENT Diff Path Review May foll Platelet Estimate ADEQUATE Hypochromasia RARE Anisocytosis RARE Macrocytosis RARE PT 15.4 H INR 1.2 Sodium 135 L Potassium 4.9 Chloride 97 L Carbon Dioxide 27.0 Anion Gap 11 BUN 39 H Creatinine 5.42 H Estim Creat Clear Calc 11.42 Est GFR (MDRD) Af Amer 11 L Est GFR (MDRD) Non-Af 9 L BUN/Creatinine Ratio 7.2 L Glucose 499 H* Calcium 7.4 L Total Bilirubin 0.30 AST 30 ALT 15 Alkaline Phosphatase 174 H Troponin I 0.040 B-Natriuretic Peptide Total Protein 6.4 Albumin 2.4 L Globulin 4.0 Albumin/Globulin Ratio 0.6 L TSH 02/22/19 02/22/19 18:30 18:30 WBC RBC Hgb Hct MCV MCH MCHC RDW Std Deviation RDW Coeff of Tegan Plt Count MPV Immature Gran % (Auto) Neut % (Auto) Lymph % (Auto) Rankin % (Auto) Eos % (Auto) Baso % (Auto) Absolute Neuts (auto) Absolute Lymphs (auto) Nucleated RBC % Differential Comment Diff Path Review Platelet Estimate Hypochromasia Anisocytosis Macrocytosis PT INR Sodium Potassium Chloride Carbon Dioxide Anion Gap BUN Creatinine Estim Creat Clear Calc Est GFR (MDRD) Af Amer Est GFR (MDRD) Non-Af BUN/Creatinine Ratio Glucose Calcium Total Bilirubin AST ALT Alkaline Phosphatase Troponin I B-Natriuretic Peptide 2647.8 H Total Protein Albumin Globulin Albumin/Globulin Ratio TSH 5.44 H Reviewed radiologist impression of chest x-ray. I am in agreement. Patient is chronically anemic. INR is normal, which would indicate normal liver function. AST and ALT are normal. Alk phos is slightly elevated. Albumin is low but improved. BNP is 2647 which would indicate her fluid overloaded state secondary to renal disease and probable right heart failure. TSH is improved. He did receive insulin for her elevated blood sugar of 499. - Medical Decision Making With recent admission records were reviewed. Will obtain CBC to assess H&H and white count. Clinically she is anemic with a hemoglobin probably less than 9. With history of end-stage renal disease and electrolyte abnormality will obtain conference of metabolic panel, which will also assess liver enzymes. Will obtain UA. I was informed she makes no urine. UA was canceled. Chest x-ray was obtained. Per review of old records TSH was 7.4 on last admission. Will reassess and she has very vague symptoms and may be secondary to hypothyroidism. With patient and daughter at 2200. They were informed of results. Patient is much more alert. She was informed the only of neurology compared to time of discharge was a blood sugar 499, which was treated with subcu insulin. Plan is to discharge to home keep appointment for dialysis tomorrow and paracentesis scheduled for Saturday. ED Disposition - Plan for ED Patient: Diagnosis: Severe hyperglycemia due to diabetes mellitus, Ascites, Lymphedema, Edema due to hypoalbuminemia Instructions: Lymphedema, Ascites Referrals: Elijah Curtis MD [Primary Care Provider] - 3-5 Days
[2019-02-22] MEDS: Insulin Lispro 100 UNIT/ML INSULN.PEN 6 UNIT SC (19:59)
[2019-02-22 20:03] LABS: Thyroid Stim Hormone (TSH) 5.44 uIU/mL (0.358-3.74)
[2019-02-22 20:04] LABS: BNP,B-Type NATRIURETIC PEPTIDE 2647.8 pg/mL (0-100)
[2019-02-22 21:46] VITALS: BP 143/71; PULSE 73; RESP 20; O2SAT 99
[2019-02-22 22:09] VITALS: BP 153/76; PULSE 80; RESP 19; O2SAT 98
[2019-02-23 12:06] LABS: Pathologist Review Reviewed
== END 2019-02-22 22:16 | disposition home or self-care (01) ==
LOC: ED 18:40
PROVIDERS: Emergency Provider Emergency Medicine; Family Provider Family Medicine; PCP Family Medicine
DX: E10.65 Type 1 diabetes mellitus with hyperglycemia (principal); I12.0 Hypertensive chronic kidney disease with stage 5 chronic kidney disease or end stage renal disease; E10.22 Type 1 diabetes mellitus with diabetic chronic kidney disease; N18.6 End stage renal disease; D63.1 Anemia in chronic kidney disease; R18.8 Other ascites; I89.0 Lymphedema, not elsewhere classified; E88.09 Other disorders of plasma-protein metabolism, not elsewhere classified; I48.0 Paroxysmal atrial fibrillation; F32.9 Major depressive disorder, single episode, unspecified; H40.9 Unspecified glaucoma; D89.0 Polyclonal hypergammaglobulinemia; E06.3 Autoimmune thyroiditis; Z99.2 Dependence on renal dialysis; Z91.15 Patient's noncompliance with renal dialysis; Z79.4 Long term (current) use of insulin; Z79.899 Other long term (current) drug therapy; Z87.891 Personal history of nicotine dependence; R06.02 Shortness of breath
CPT/HCPCS: 71046; 80053; 83880; 84443; 84484; 85025; 85610; 93005; 99285; A4216

== ENCOUNTER → 2019-02-26 13:35 | Outpatient (CLI) | payer OTHER, MEDICARE, MEDICAID, SELFPAY ==
[2019-02-16 18:38] VITALS: BMI 32.1
[2019-02-22 18:16] VITALS: BMI 33.5
--- NOTE | 2019-02-26 13:40 | US_ITS ---
STUDY: ABDOMINAL ULTRASOUND - RIGHT UPPER QUADRANT REASON FOR VISIT: Female, 48 years old check for cycles TECHNIQUE: Ultrasound evaluation of the right upper quadrant was performed with real-time and static treadwell-scale imaging. TECHNICAL QUALITY: Adequate. COMPARISON: None. FINDINGS: Serial occipital and transverse scans of the abdominal cavity were performed as well as real-time sector scanner. An insufficient amount of fluid was noted in the abdominal cavity to warrant a paracentesis. The patient was informed that only small pockets of fluid were seen and elected to wait until Saturday to return for a paracentesis. US/Abdomen Limited IMPRESSION: An insufficient amount of ascites is present to warrant a paracentesis and the patient will return on Saturday for a paracentesis. Electronically Signed: Alfredo Candelaria, at 7:52 EDT Tel , Service support ,
[2019-02-26 14:01] VITALS: BP 108/47; PULSE 57; RESP 18; O2SAT 92
== END ==
PROVIDERS: Family Provider Family Medicine; PCP Family Medicine; Referring Provider Internal Medicine Nephrology; Visit Provider Internal Medicine Nephrology
DX: R18.8 Other ascites (principal); N18.6 End stage renal disease
CPT/HCPCS: 76705

== ENCOUNTER 2019-03-03 13:03 | Observation (INO) | payer MEDICARE, OTHER, MEDICAID, SELFPAY ==
[2019-03-03] VITALS (8 sets, daily range): BP systolic 118–141; BP diastolic 61–101; PULSE 50–58; RESP 17–20; TEMP 36.3–36.6; O2SAT 94–100; BMI 33.4; BMI 35.9
--- NOTE | 2019-03-03 14:37 | EKG12_ITS ---
Test Reason : EDEMA Blood Pressure : / mmHG Vent. Rate : 052 BPM Atrial Rate : 052 BPM P-R Int : 218 ms QRS Dur : 088 ms QT Int : 498 ms P-R-T Axes : 044 005 115 degrees QTc Int : 463 ms Sinus bradycardia with 1st degree A-V block Low voltage QRS Cannot rule out Anterior infarct (cited on or before 23-JAN-2019) T wave abnormality, consider lateral ischemia Abnormal ECG Confirmed by MARIAH DIXON ([id number]), director title BLAYNE RECINOS ([id number]) on 03/06/2019 10:17:23 AM Referred By: CLARENCE Confirmed By:MARIAH DIXON
--- NOTE | 2019-03-03 14:37 | RAD_ITS ---
STUDY: X-RAY CHEST REASON FOR EXAM: Female, 48 years old. Chest pain. TECHNIQUE: Single AP portable view of the chest. COMPARISON: Comparison is made with prior examination February 22, 2019. FINDINGS: EKG electrodes are seen. Limited inspiration. No acute infiltrate is seen. There is no demonstrated pleural abnormality. There is moderate cardiac enlargement. Normal mediastinum and demarcus. Normal visualized pulmonary arteries. Normal visualized aortic arch and descending thoracic aorta. Normal visualized thoracic spine. Normal visualized ribs, clavicles, and shoulders. There is no demonstrated abnormality of the visualized soft tissue structures of the upper abdomen. RAD/Chest 1 View (Portable) IMPRESSION: Cardiomegaly. Limited inspiratory effort. Electronically Signed: Thuan Benton, at 15:52 EDT , Service support ,
[2019-03-03 15:03] LABS: Absolute Lymphocyte Count 0.92 X10^3/uL (0.83-4.51); Absolute Neutrophil Count 4.5 X10^3/uL (2.0-7.7); Basophil# 0.05 X10^3/uL; Basophil% 0.8 % (0-1); Eosinophil# 0.48 X10^3/uL; Eosinophils% 7.3 % (0-5); Hematocrit 30.5 % (37-47); Hemoglobin 9.8 g/dL (12.0-15.0); Lymphocyte # 0.92 X10^3/ul (4.0); Mean Corp Hgb Conc 32.1 g/dL (32-36); Mean Corpuscular Hgb 32.8 pg (27.0-32.0); Mean Platelet Vol. 11.7 fl (6.2-12.0); Monocyte# 0.56 X10^3/uL; Monocyte% 8.5 % (0-10); NRBC Flagged by Analyzer 0.5 % (0-5); Neutrophil # 4.54 X10^3/uL (2.7-7.7); Neutrophil % 68.8 % (47-70); Platelet Count 173 K/mm3 (150-450); RBC Distribution Width CV 16.8 % (11.6-14.6); RBC Distribution Width SD 60.5 fl (35.1-43.9); Red Blood Count 2.99 M/mm3 (4.2-5.4); White Blood Count 6.6 K/mm3 (4.4-11.0)
[2019-03-03] MEDS: fentaNYL 100 MCG/2 ML Ampul 50 MCG IV (15:21)
[2019-03-03 15:53] LABS: Anion Gap 12 (5-15); BUN 52 mg/dL (7-18); BUN/Creat Ratio 7.9 RATIO (10-20); Calcium,Total 7.9 mg/dL (8.5-10.1); Chloride 96 mmol/L (98-107); Creatinine, Serum 6.58 mg/dL (0.55-1.02); EST Glomerular Filtration Rate 7 mL/min (>60); Est Glom Filt Rate - Afr Amer 9 mL/min (>60); Estimated Creatinine Clearance 9.41 ml/min; Glucose 200 mg/dL (74-106); Magnesium 2.2 mg/dL (1.6-2.6); Phosphorus 9.1 mg/dL (2.5-4.9); Potassium 5.7 mmol/L (3.5-5.1); Sodium Level 130 mmol/L (136-145)
--- NOTE | 2019-03-03 16:52 | ED.VISSUMM ---
- ER Visit Summary Date of Service: 03/03/19 Chief Complaint: Weakness History of Present Illness: The patient is a 48 F with generalized weakness. Symptoms have been going on for days. She has a history of end-stage renal disease. She attends dialysis Saturday, Saturday, and Saturday. Her last dialysis was last Saturday. She missed the most recent session. She said that she was too weak to attend dialysis. She reports leg swelling and weight gain. Her legs are causing a lot of pain. Physical Examination: Afebrile and vital signs unremarkable. Patient alert and oriented. No acute distress. Heart regular rate and rhythm. Lungs clear. Abdomen soft and nontender. Extremities are tender bilaterally. She has symmetric edema and stasis changes. Fistula normal. Test Results: EKG showed sinus bradycardia at a rate of 52. No sign of ischemia or infarction pattern. Hemoglobin stable 9.8. Sodium 130, potassium 5.7, troponin normal, magnesium normal, phosphorus 9.1. Chest x-ray showed enlarged cardiac silhouette. Emergency Department Course and Treatment: Patient was placed on a monitor. She was treated with calcium, insulin, dextrose. She had no EKG changes consistent with hyperkalemia. Patient will need dialysis. She has no other findings or symptoms to explain her underlying weakness. I spoke with the hospitalist will admit for further care. Treatment Plan: As above Disposition: Observation Impression: 1. End-stage renal disease 2. Hyperkalemia 3. Peripheral edema This note was generated with [employer] dictation software. It may contain incorrect words, spelling, and punctuation that were not noted in review of the chart prior to signing ED Disposition - Plan for ED Patient: Referrals: Elijah Curtis MD [Primary Care Provider] -
--- NOTE | 2019-03-03 16:58 | NURSING ---
OBS PAINTSIL ESRD, HYPERKALEMIA
--- NOTE | 2019-03-03 17:12 | PCM.HP.STD ---
<Janice Ramos - Last Filed: 03/03/19 18:02> Problem List (1) Hyperkalemia Status: Acute (2) Hyperglycemia Status: Acute (3) Abnormal LFTs Status: Chronic (4) Ascites Status: Chronic Comment: Not verified from [facility] yet (5) End stage renal disease on dialysis Status: Chronic (6) Polyclonal gammopathy Status: Chronic (7) PAF (paroxysmal atrial fibrillation) Status: Chronic (8) Glaucoma Status: Chronic (9) Depression Status: Chronic (10) Hyperuricemia Status: Chronic (11) Hypertension Status: Chronic (12) DM type 1 (diabetes mellitus, type 1) Status: Chronic (13) Anemia Status: Chronic History of Present Illness Date of Admission: 03/03/19 Chief Complaint: lower extremity and abominal swelling, missed dialysis. The patient is a 48 year old F who presents emergency room due to increased lower extremity swelling and abdominal swelling. She reports she missed dialysis on Saturday due to not feeling well. Patient has had recurrent admissions secondary to missed dialysis. Most recently, she was discharged 02/18/19 secondary to fluid overload as a result of missed dialysis. She denies shortness of breath or other current symptoms. Patient drowsy during assessment and continuously falls asleep during questions. Patient has upcoming follow-up with Dr. Dupree, gastroenterology for recurrent ascites. She has a past medical history of ESRD on HD, DM Type 1, depression, anxiety, RLS, GERD, hypothyroidism, gout. Past Medical History Past Medical History (Chronic Problems): Chronic Problems (Last Updated 01/24/19 @ 13:27 by Daniella Donald MD) Abnormal LFTs (Chronic) Ascites (Chronic) Not verified from [facility] yet End stage renal disease on dialysis (Chronic) Polyclonal gammopathy (Chronic) PAF (paroxysmal atrial fibrillation) (Chronic) Glaucoma (Chronic) Depression (Chronic) Hyperuricemia (Chronic) Hypertension (Chronic) DM type 1 (diabetes mellitus, type 1) (Chronic) Anemia (Chronic) Medical History: Medical History (Last Updated 01/24/19 @ 13:27 by Daniella Donald MD) End stage renal disease on dialysis (Chronic) N18.6, Z99.2 Polyclonal gammopathy (Chronic) D89.0 PAF (paroxysmal atrial fibrillation) (Chronic) I48.0 Glaucoma (Chronic) H40.9 Depression (Chronic) F32.9 Hyperuricemia (Chronic) E79.0 Hypertension (Chronic) I10 DM type 1 (diabetes mellitus, type 1) (Chronic) E10.9 Anemia (Chronic) D64.9 Metabolic encephalopathy G93.41 DKA (diabetic ketoacidoses) E13.10 Seizure (Inactive) R56.9 ddue to hypoglycemia Allergies levothyroxine sodium [From Synthroid] Allergy (Verified 03/03/19 13:07) Swelling Penicillins [PCN] Allergy (Verified 03/03/19 13:07) Hives Home Medications: Ambulatory Orders Medication Instructions Recorded Allopurinol [Zyloprim] 200 mg PO DAILY 10/28/16 Gabapentin [Neurontin] 300 mg PO DAILY 10/28/16 Latanoprost 0.005% [Xalatan 1 drop EACH EYE QHS 10/28/16 Opthalmic] Sevelamer Carbonate [Renvela] 3,200 mg PO TIDCM 05/17/17 ALPRAZolam [Xanax] 0.5 mg PO TID PRN PRN 11/22/18 Vit B Comp No.3/Folic/C/Biotin 1 ea PO DAILY 11/22/18 [Nephro-Reggie Rx Tablet] Pantoprazole Sodium [Protonix] 40 mg PO DAILY #30 tab 01/28/19 Insulin Glargine [Lantus SoloStar 3 units SUBCUT QHS 02/16/19 Pen] Insulin Lispro [Humalog KwikPen] 2 units SQ TIDCM 02/16/19 Insulin Lispro [Humalog KwikPen] See Protocol SUBCUT 4X/DAY 03/03/19 Levothyroxine Sodium [Synthroid] 50 mcg PO DAILY 03/03/19 Lidocaine/Prilocaine 1 applic TP UD 03/03/19 [Lidocaine-Prilocaine Cream] Surgical History: cholecystectomy, hysterectomy, tonsillectomy, - - PD catheter placement, tunneled dialysis catheter placement, AVF 06/08/17. 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 Denies: Chest Pain, Palpitations Respiratory: Denies: Cough, Shortness of breath at rest, Sputum production Gastrointestinal: Denies: Abdominal Pain, Nausea, Vomiting Genitourinary: Denies: Dysuria Musculoskeletal: Denies: Joint Pain, Joint Tenderness Skin: Denies: Rash, Wounds Neurological: Denies: Numbness, Tingling, Focal weakness Psychiatric: Denies: Anxiety, Depression, Homicidal Ideations, Suicidal Ideations Hematologic/ Lymphatic: Denies: Easy Bruising, Easy Bleeding VTE Information - Inpt Only VTE Present on Admission: No VTE Mechan Device Prophylaxis: None VTE Pharm Prophylaxis ordered?: Yes - Physical Exam General: Alert, Oriented x3, Cooperative HEENT: Atraumatic, PERRLA, EOMI, Normocephalic Neck: Supple, No JVD, Negative Carotid Bruits Lungs: Clear to auscultation, Diminished Cardiovascular: Regular Rhythm, Normal S1, Normal S2, No murmurs, Bradycardic Abdomen: Bowel Sounds Present, Soft, Non Tender, Distended, Obese Extremities: No clubbing, No cyanosis, Capillary Refill Less than 3 Seconds, - - BLLE, ascites Skin: No rashes, No breakdown, - - Chronic skin changes bilateral lower extremities Musculoskeletal: No Tenderness to Palpation of Joints or Extremities Neurological: Cranial nerves II-XII grossly intact, Neuro grossly intact Psych/Mental Status: Normal Affect, Appropriate Vital Signs Temp Pulse Resp BP Pulse Ox 98 F 51 L 17 140/90 H 99 03/03/19 13:04 03/03/19 16:30 03/03/19 16:30 03/03/19 16:30 03/03/19 16:30 Oxygen Delivery Method Room Air Weight: 201 lb Body Mass Index (BMI) 33.4 Finger Stick Blood Glucose 250 Laboratory Tests Past 24 Hrs 03/03/19 03/03/19 14:55 14:55 WBC 6.6 RBC 2.99 L Hgb 9.8 L Hct 30.5 L MCV 102.0 H MCH 32.8 H MCHC 32.1 RDW Std Deviation 60.5 H RDW Coeff of Tegan 16.8 H Plt Count 173 MPV 11.7 Immature Gran % (Auto) 0.600 Neut % (Auto) 68.8 Lymph % (Auto) 14.0 L [place] % (Auto) 8.5 Eos % (Auto) 7.3 H Baso % (Auto) 0.8 Absolute Neuts (auto) 4.5 Absolute Lymphs (auto) 0.92 Nucleated RBC % 0.5 Sodium 130 L Potassium 5.7 H Chloride 96 L Carbon Dioxide 22.0 Anion Gap 12 BUN 52 H Creatinine 6.58 H Estim Creat Clear Calc 9.41 Est GFR (MDRD) Af Amer 9 L Est GFR (MDRD) Non-Af 7 L BUN/Creatinine Ratio 7.9 L Glucose 200 H Calcium 7.9 L Phosphorus 9.1 H* Magnesium 2.2 Troponin I 0.042 Assessment/Plan All Active Problems (Last Updated 01/24/19 @ 13:27 by Daniella Donald MD) Hyperkalemia (Acute) Hyperglycemia (Acute) 1. Fluid overload secondary to missed dialysis regimen/ESRD with associated hyperkalemia- consult nephrology. Patient received calcium, insulin and dextrose in ER. Trend BMP. 2. Noncompliance with dialysis/follow-up- consult for DC planning. 3. Chronic ascites with history of multiple paracentesis-upcoming follow-up with Dr. Dupree in March. Abdominal ultrasound 02/27/2018 with insufficient amount of ascites for paracentesis. Patient was to return today for repeat attempt. Will repeat US to assess fluid level. 4. DM Type 0-Adph-Hptsl AC at bedtime, sliding scale insulin. Continue home Lantus regimen. 6. Depression/Anxiety-hold as needed Xanax regimen given lethargy. 7. RLS-continue Mirapex regimen. 8. GERD-continue PPI. 9. Hypothyroidism-continue Synthroid regimen. 10. Gout-continue allopurinol regimen. DVT prophylaxis- Heparin sc This patient was seen by DANIEL Garg under the supervision of Dr. Diaz. <Quynh Diaz - Last Filed: 03/03/19 19:29> History of Present Illness The patient is a 48 year old F [] Past Medical History Medical History: Medical History (Last Updated 01/24/19 @ 13:27 by Daniella Donald MD) End stage renal disease on dialysis (Chronic) N18.6, Z99.2 Polyclonal gammopathy (Chronic) D89.0 PAF (paroxysmal atrial fibrillation) (Chronic) I48.0 Glaucoma (Chronic) H40.9 Depression (Chronic) F32.9 Hyperuricemia (Chronic) E79.0 Hypertension (Chronic) I10 DM type 1 (diabetes mellitus, type 1) (Chronic) E10.9 Anemia (Chronic) D64.9 Metabolic encephalopathy G93.41 DKA (diabetic ketoacidoses) E13.10 Seizure (Inactive) R56.9 ddue to hypoglycemia Allergies levothyroxine sodium [From Synthroid] Allergy (Verified 03/03/19 13:07) Swelling Penicillins [PCN] Allergy (Verified 03/03/19 13:07) Hives - Physical Exam Vital Signs Temp Pulse Resp BP Pulse Ox 98 F 50 L 20 H 137/89 H 100 03/03/19 13:04 03/03/19 18:01 03/03/19 17:59 03/03/19 18:01 03/03/19 17:59 Oxygen Flow Rate (L/min) 2 Oxygen Delivery Method Nasal Cannula Weight: 91.172 kg Body Mass Index (BMI) 33.4 Finger Stick Blood Glucose 250 Intake and Output for Last 24 Hours 03/01/19 03/02/19 03/03/19 23:59 23:59 23:59 Intake Total 0.05 / 0.05 Balance 0.05 / 0.05 Laboratory Tests Past 24 Hrs 03/03/19 03/03/19 03/03/19 14:55 14:55 14:55 WBC 6.6 RBC 2.99 L Hgb 9.8 L Hct 30.5 L MCV 102.0 H MCH 32.8 H MCHC 32.1 RDW Std Deviation 60.5 H RDW Coeff of Tegan 16.8 H Plt Count 173 MPV 11.7 Immature Gran % (Auto) 0.600 Neut % (Auto) 68.8 Lymph % (Auto) 14.0 L [place] % (Auto) 8.5 Eos % (Auto) 7.3 H Baso % (Auto) 0.8 Absolute Neuts (auto) 4.5 Absolute Lymphs (auto) 0.92 Nucleated RBC % 0.5 Sodium 130 L Potassium 5.7 H Chloride 96 L Carbon Dioxide 22.0 Anion Gap 12 BUN 52 H Creatinine 6.58 H Estim Creat Clear Calc 9.41 Est GFR (MDRD) Af Amer 9 L Est GFR (MDRD) Non-Af 7 L BUN/Creatinine Ratio 7.9 L Glucose 200 H Calcium 7.9 L Phosphorus 9.1 H* Magnesium 2.2 Total Bilirubin Pending Direct Bilirubin Pending AST Pending ALT Pending Alkaline Phosphatase Pending Troponin I 0.042 Total Protein Pending Albumin Pending Assessment/Plan This patient was seen in conjunction with Janice Ramos NP. I have independently interviewed and examined the patient and reviewed pertinent historical, laboratory, and other data. Please refer to her note for patient's presentation, findings, and recommendations. 48 year-old female with past medical history of ESRD on hemodialysis, admitted with progressive weakness and increased lower extremity and abdominal swelling ongoing for days. Patient admits that she missed her dialysis on Saturday because she was not feeling well. She did not denies any specific symptoms of chest pain. Denies any fever or chills. Vitals were reviewed -stable Physical Exam: Gen: In discomfort, slightly lethargic, pale, not jaundiced, awakes to answer questions, on 2L oxygen CVS:HS I +II, regular, no murmurs RESP: Diminished at lung bases GI: BS present and normal, nontender, no palpable organs EXT:Bilateral shiny edema, pitting, +4 Labs reviewed: BC count of 6.6, hemoglobin 9.8, platelet count 173, sodium 130, potassium 5.7, chloride 96, BUN 52, creatinine 6.58, phosphorus 9.1, magnesium 2.2, LFTs are pending, calcium 7.9, albumin is pending ASSESSMENT: 1. Acute fluid overload secondary to missed dialysis 2. ESRD on hemodialysis-Saturday?Saturday?Saturday 3. Ascites likely secondary to poor fluid removal in dialysis 4. Type I DM 5. Depression/anxiety 6. RLS 7. Hypothyroidism Meds reviewed Plan: Nephrology consult Dialysis tonight Continue rest of meds Code Visit OBSV E&M: [id number] Initial observation care L3
[2019-03-03] MEDS: Dextrose 50%-Water 25 GM/50 ML DISP.SYRIN IV ×3 (17:53→23:37)
[2019-03-03] MEDS: Insulin Lispro 5 UNIT in Syringe 0 ML 3 UNIT IV (17:54)
[2019-03-03] MEDS: Calcium Gluconate 1 GM/10 ML Vial IV (17:58)
[2019-03-03 18:44] LABS: AST(SGOT) 23 U/L (15-37); Alanine Aminotransfer ALT/SGPT 20 U/L (13-56); Albumin, Serum 2.9 g/dL (3.2-5.0); Alkaline Phosphatase 297 U/L (45-117); Bilirubin, Direct 0.34 mg/dL (0.00-0.30); Globulin 4.6 g/dL (2.2-4.2); Protein, Total 7.5 g/dL (6.4-8.2)
[2019-03-03 19:55] LABS: Bedside Glucose 53 mg/dL (70-110)
[2019-03-03 20:11] LABS: Bedside Glucose 62 mg/dL (70-110)
[2019-03-03 20:56] LABS: Bedside Glucose 94 mg/dL (70-110)
--- NOTE | 2019-03-03 22:56 | DIALYSIS ---
HD X 2 HRS ON 2K BATH. [id number] TOLERATED WELL. PT REMAINS SLEEPY STASIS AT [facility] AT SIT[facility]. REPORT TO HERBERT POLLARD
[2019-03-03] MEDS: Heparin Injection (Vial) 5,000 UNIT/ML VIAL 5000 UNIT SC (23:16)
[2019-03-03 23:26] LABS: Bedside Glucose 48 mg/dL (70-110)
[2019-03-04 00:11] LABS: Bedside Glucose 117 mg/dL (70-110)
[2019-03-04 01:20] VITALS: BP 133/67; PULSE 52; RESP 16; TEMP 36.4; O2SAT 100
[2019-03-04 04:39] VITALS: BP 113/49; PULSE 55; RESP 16; TEMP 36.6; O2SAT 94
[2019-03-04 05:53] LABS: Absolute Lymphocyte Count 0.63 X10^3/uL (0.83-4.51); Absolute Neutrophil Count 3.6 X10^3/uL (2.0-7.7); Basophil# 0.03 X10^3/uL; Basophil% 0.6 % (0-1); Eosinophil# 0.32 X10^3/uL; Eosinophils% 6.4 % (0-5); Hematocrit 27.2 % (37-47); Hemoglobin 8.6 g/dL (12.0-15.0); Lymphocyte # 0.63 X10^3/ul (4.0); Lymphocyte % 12.6 % (19-41); Mean Corp Hgb Conc 31.6 g/dL (32-36); Mean Corpuscular Hgb 32.2 pg (27.0-32.0); Mean Corpuscular Volume 101.9 fL (81-99); Mean Platelet Vol. 12.2 fl (6.2-12.0); Monocyte# 0.41 X10^3/uL; Monocyte% 8.2 % (0-10); NRBC Flagged by Analyzer 0 % (0-5); Neutrophil # 3.59 X10^3/uL (2.7-7.7); Neutrophil % 71.6 % (47-70); Platelet Count 129 K/mm3 (150-450); RBC Distribution Width CV 16.6 % (11.6-14.6); RBC Distribution Width SD 60.2 fl (35.1-43.9); Red Blood Count 2.67 M/mm3 (4.2-5.4)
[2019-03-04 06:18] LABS: ALB/GLOB Ratio 0.6 RATIO (0.9-2.4); AST(SGOT) 21 U/L (15-37); Alanine Aminotransfer ALT/SGPT 16 U/L (13-56); Albumin, Serum 2.2 g/dL (3.2-5.0); Alkaline Phosphatase 210 U/L (45-117); Anion Gap 13 (5-15); BUN 41 mg/dL (7-18); BUN/Creat Ratio 7.5 RATIO (10-20); Calcium,Total 7.2 mg/dL (8.5-10.1); Chloride 100 mmol/L (98-107); Creatinine, Serum 5.47 mg/dL (0.55-1.02); EST Glomerular Filtration Rate 9 mL/min (>60); Est Glom Filt Rate - Afr Amer 11 mL/min (>60); Estimated Creatinine Clearance 11.32 ml/min; Globulin 3.7 g/dL (2.2-4.2); Glucose 164 mg/dL (74-106); Potassium 5.4 mmol/L (3.5-5.1); Protein, Total 5.9 g/dL (6.4-8.2); Sodium Level 135 mmol/L (136-145)
[2019-03-04] MEDS: Heparin Injection (Vial) 5,000 UNIT/ML VIAL 5000 UNIT SC ×2 (06:56→13:27)
[2019-03-04 07:00] VITALS: O2SAT 86
[2019-03-04 07:06] LABS: Bedside Glucose 235 mg/dL (70-110)
--- NOTE | 2019-03-04 07:55 | CPS ---
pt placed back on 1.5lpm....nurse aware of change
[2019-03-04 08:01] VITALS: BP 131/57; PULSE 57; RESP 18; TEMP 37; O2SAT 96
[2019-03-04 08:03] VITALS: PULSE 57
--- NOTE | 2019-03-04 10:51 | CASEMGMT ---
LW/POA forms scanned into summary tab of echart. Mulu Sharif is listed as pt's POA. SHARLA Aguilar
--- NOTE | 2019-03-04 12:03 | PCM.CONS.GEN ---
Reason for Consult Date of Consultation: 03/04/19 Reason for Consultation: ESRD History of Present Illness: The patient is a 48 year old F [with a past medical history of end-stage renal disease who presented to the emergency room due to increased lower extremity edema and increased abdominal girth. Apparently the patient missed dialysis on Saturday because she was not feeling well. She has multiple admissions for missing dialysis in the past. Her most recent discharges from February 18 secondary to fluid overload because she missed dialysis. She is seen during dialysis and she denies shortness of breath currently. States her edema improved after dialysis yesterday and today. She denies abdominal pain nausea vomiting chest pain fever chills. She has no other complaints. She has an upcoming follow-up appointment with Dr. Dupree gastroenterology for recurrent ascites. Past Medical History Past Medical History (Chronic Problems): Chronic Problems (Last Updated 01/24/19 @ 13:27 by Daniella Donald MD) Abnormal LFTs (Chronic) Ascites (Chronic) Not verified from [facility] yet End stage renal disease on dialysis (Chronic) Polyclonal gammopathy (Chronic) PAF (paroxysmal atrial fibrillation) (Chronic) Glaucoma (Chronic) Depression (Chronic) Hyperuricemia (Chronic) Hypertension (Chronic) DM type 1 (diabetes mellitus, type 1) (Chronic) Anemia (Chronic) Medical History: Medical History (Last Updated 01/24/19 @ 13:27 by Daniella Donald MD) End stage renal disease on dialysis (Chronic) N18.6, Z99.2 Polyclonal gammopathy (Chronic) D89.0 PAF (paroxysmal atrial fibrillation) (Chronic) I48.0 Glaucoma (Chronic) H40.9 Depression (Chronic) F32.9 Hyperuricemia (Chronic) E79.0 Hypertension (Chronic) I10 DM type 1 (diabetes mellitus, type 1) (Chronic) E10.9 Anemia (Chronic) D64.9 Metabolic encephalopathy G93.41 DKA (diabetic ketoacidoses) E13.10 Seizure (Inactive) R56.9 ddue to hypoglycemia Allergies levothyroxine sodium [From Synthroid] Allergy (Verified 03/03/19 13:07) Swelling Penicillins [PCN] Allergy (Verified 03/03/19 13:07) Hives Home Medications: Ambulatory Orders Medication Instructions Recorded Allopurinol [Zyloprim] 200 mg PO DAILY 10/28/16 Gabapentin [Neurontin] 300 mg PO DAILY 10/28/16 Latanoprost 0.005% [Xalatan 1 drop EACH EYE QHS 10/28/16 Opthalmic] Sevelamer Carbonate [Renvela] 3,200 mg PO TIDCM 05/17/17 ALPRAZolam [Xanax] 0.5 mg PO TID PRN PRN 11/22/18 Vit B Comp No.3/Folic/C/Biotin 1 ea PO DAILY 11/22/18 [Nephro-Reggie Rx Tablet] Pantoprazole Sodium [Protonix] 40 mg PO DAILY #30 tab 01/28/19 Insulin Lispro [Humalog KwikPen] 2 units SQ TIDCM 02/16/19 Insulin Lispro [Humalog KwikPen] See Protocol SUBCUT 4X/DAY 03/03/19 Lidocaine/Prilocaine 1 applic TP UD 03/03/19 [Lidocaine-Prilocaine Cream] Surgical History: cholecystectomy, hysterectomy, tonsillectomy, - - PD catheter placement, tunneled dialysis catheter placement, AVF 06/08/17. 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 - Physical Exam General: Alert, Oriented x3, Cooperative HEENT: Atraumatic, PERRLA, EOMI, Normocephalic Neck: Supple, No JVD, Negative Carotid Bruits Lungs: Clear to auscultation, Normal air movement Cardiovascular: Regular rate, No murmurs Abdomen: Bowel Sounds Present, Soft, Non Tender Extremities: No edema, Capillary Refill Less than 3 Seconds Skin: No rashes, No breakdown Musculoskeletal: No Tenderness to Palpation of Joints or Extremities Neurological: Cranial nerves II-XII grossly intact, - - Left arm AV fistula with needles in. Ascites with obese abdomen nontender. Psych/Mental Status: Normal Affect, Appropriate Vital Signs Temp Pulse Resp BP Pulse Ox 98.6 F 57 L 18 131/57 H 96 03/04/19 08:01 03/04/19 08:03 03/04/19 08:01 03/04/19 08:01 03/04/19 08:01 Oxygen Flow Rate (L/min) 3 Oxygen Delivery Method Nasal Cannula Weight: 94.5 kg Body Mass Index (BMI) 35.9 Finger Stick Blood Glucose 250 Intake and Output for Last 24 Hours 03/02/19 03/03/19 03/04/19 23:59 23:59 23:59 Intake Total 0.05 / 0.05 340 / 340 Output Total 0 / 0 Balance 0.05 / 0.05 340 / 340 Laboratory Tests Past 24 Hrs 03/03/19 03/03/19 03/03/19 14:55 14:55 14:55 WBC 6.6 RBC 2.99 L Hgb 9.8 L Hct 30.5 L MCV 102.0 H MCH 32.8 H MCHC 32.1 RDW Std Deviation 60.5 H RDW Coeff of Tegan 16.8 H Plt Count 173 MPV 11.7 Immature Gran % (Auto) 0.600 Neut % (Auto) 68.8 Lymph % (Auto) 14.0 L [place] % (Auto) 8.5 Eos % (Auto) 7.3 H Baso % (Auto) 0.8 Absolute Neuts (auto) 4.5 Absolute Lymphs (auto) 0.92 Nucleated RBC % 0.5 Sodium 130 L Potassium 5.7 H Chloride 96 L Carbon Dioxide 22.0 Anion Gap 12 BUN 52 H Creatinine 6.58 H Estim Creat Clear Calc 9.41 Est GFR (MDRD) Af Amer 9 L Est GFR (MDRD) Non-Af 7 L BUN/Creatinine Ratio 7.9 L Glucose 200 H Calcium 7.9 L Phosphorus 9.1 H* Magnesium 2.2 Total Bilirubin 0.70 Direct Bilirubin 0.34 H AST 23 ALT 20 Alkaline Phosphatase 297 H Ammonia Troponin I 0.042 Total Protein 7.5 Albumin 2.9 L Globulin 4.6 H Albumin/Globulin Ratio 03/03/19 03/04/19 03/04/19 18:55 05:12 05:12 WBC 5.0 RBC 2.67 L Hgb 8.6 L Hct 27.2 L MCV 101.9 H MCH 32.2 H MCHC 31.6 L RDW Std Deviation 60.2 H RDW Coeff of Tegan 16.6 H Plt Count 129 L MPV 12.2 H Immature Gran % (Auto) 0.600 Neut % (Auto) 71.6 H Lymph % (Auto) 12.6 L [place] % (Auto) 8.2 Eos % (Auto) 6.4 H Baso % (Auto) 0.6 Absolute Neuts (auto) 3.6 Absolute Lymphs (auto) 0.63 L Nucleated RBC % 0 Sodium 135 L Potassium 5.4 H Chloride 100 Carbon Dioxide 22.0 Anion Gap 13 BUN 41 H Creatinine 5.47 H Estim Creat Clear Calc 11.32 Est GFR (MDRD) Af Amer 11 L Est GFR (MDRD) Non-Af 9 L BUN/Creatinine Ratio 7.5 L Glucose 164 H Calcium 7.2 L Phosphorus Magnesium Total Bilirubin 0.70 Direct Bilirubin AST 21 ALT 16 Alkaline Phosphatase 210 H Ammonia 67.0 H Troponin I Total Protein 5.9 L Albumin 2.2 L Globulin 3.7 Albumin/Globulin Ratio 0.6 L POC Glucose 03/04/19 03/04/19 03/03/19 06:54 00:03 23:23 POC Glucose 235 H 117 H 48 L 03/03/19 03/03/19 03/03/19 20:52 20:06 19:42 POC Glucose 94 62 L 53 L Assessment/Plan All Active Problems (Last Updated 01/24/19 @ 13:27 by Daniella Donald MD) Hyperkalemia (Acute) Hyperglycemia (Acute) 1.ESRD?continue Saturday dialysis. Compliance with dialysis treatments reinforced. Seen on dialysis tolerating well 2.anemia start Epogen with HD if prolonged hospital stay 3.CKD MBD? Renvela monitor phosphorus 4. Hyperkalemia?compliance with low potassium diet and dialysis treatment reinforced improving repeat dialysis today 5.LE edema almost resolved.
--- NOTE | 2019-03-04 13:04 | DIALYSIS ---
Hemodialysis tx completed x 4 hours without complications. Pt tolerated tx well, fluid removed 5,000ml using crit-line monitor. Vitals stable throughout tx. Verbal report given to ATUL Vaughan post tx. Next HD tx 03/06/19
[2019-03-04] MEDS: Gabapentin 300 MG Capsule PO (13:25)
[2019-03-04] MEDS: Allopurinol 100 MG Tablet 200 MG PO (13:25)
[2019-03-04] MEDS: SEVELAMER CARBONATE 800 MG TABLET 3200 MG PO (13:26)
[2019-03-04] MEDS: Pantoprazole Sodium 40 MG Tablet PO (13:26)
[2019-03-04 13:36] LABS: Bedside Glucose 368 mg/dL (70-110)
[2019-03-04] MEDS: Insulin Lispro 100 UNIT/ML INSULN.PEN SC ×2 (13:40→13:41)
[2019-03-04 13:43] VITALS: BP 126/49; PULSE 58; RESP 18; TEMP 36.4; O2SAT 96
--- NOTE | 2019-03-04 14:58 | DCINST_ITS ---
You will use the following diet at home:: Calorie/Carbohydrate Controlled (specify 1200, 1400, etc), Renal (restricted protein/sodium) Your food should be the consistency of: Regular Your liquids should be the consistency of: Regular/Thin Discharge Activity: Return to Normal Activity Call your doctor if you observe: Fever of 101 or Higher, Shortness of breath, Dizziness, Fainting spells, Swelling in the ankles, Chest pain, Increased palpitations (irregular heartbeat) Allergies/Adverse Reactions: Allergies levothyroxine sodium [From Synthroid] Allergy (Verified 03/03/19 13:07) Swelling Penicillins [PCN] Allergy (Verified 03/03/19 13:07) Hives Medications to take at Discharge Allopurinol [Zyloprim] 200 mg PO DAILY 10/28/16 Gabapentin [Neurontin] 300 mg PO DAILY 10/28/16 Latanoprost 0.005% [Xalatan Opthalmic] 1 drop EACH EYE QHS 10/28/16 Sevelamer Carbonate [Renvela] 3,200 mg PO TIDCM 05/17/17 ALPRAZolam [Xanax] 0.5 mg PO TID PRN PRN 11/22/18 Vit B Comp No.3/Folic/C/Biotin [Nephro-Reggie Rx Tablet] 1 ea PO DAILY 11/22/18 Pantoprazole Sodium [Protonix] 40 mg PO DAILY #30 tab 01/28/19 Insulin Lispro [Humalog KwikPen] 2 units SQ TIDCM 02/16/19 Insulin Lispro [Humalog KwikPen] See Protocol SUBCUT 4X/DAY 03/03/19 Lidocaine/Prilocaine [Lidocaine-Prilocaine Cream] 1 applic TP UD 03/03/19 Insulin Glargine [Lantus SoloStar Pen] 3 units SUBCUT QHS pen 03/04/19 Primary Care Physician: Elijah Curtis MD [Primary Care Provider] - Please follow up with your Primary Care Physician in: 3-5 days Test Results: Test results from this visit will be discussed in further detail at your follow- up appointment, if applicable. Please Follow Up With: Joshua Mclean MD When: 1-2 weeks
--- NOTE | 2019-03-04 15:33 | DS.PCM_ITS ---
Discharge Date and Diagnosis Date of Admission: 03/03/19 Date of Discharge: 03/04/19 - Secondary Discharge Diagnosis Chronic Problems (Last Updated 01/24/19 @ 13:27 by Daniella Donald MD) Abnormal LFTs (Chronic) Ascites (Chronic) Not verified from [facility] yet End stage renal disease on dialysis (Chronic) Polyclonal gammopathy (Chronic) PAF (paroxysmal atrial fibrillation) (Chronic) Glaucoma (Chronic) Depression (Chronic) Hyperuricemia (Chronic) Hypertension (Chronic) DM type 1 (diabetes mellitus, type 1) (Chronic) Anemia (Chronic) Hospital Course and Treatment Imaging Results: CXR: IMPRESSION: Cardiomegaly. Limited inspiratory effort. Consults: Nephrology Operations: None Procedures: None Summary of Care Provided: Per HPI: The patient is a 48 year old F who presents emergency room due to increased lower extremity swelling and abdominal swelling. She reports she missed dialysis on Saturday due to not feeling well. Patient has had recurrent admissions secondary to missed dialysis. Most recently, she was discharged 02/18/19 secondary to fluid overload as a result of missed dialysis. She denies shortness of breath or other current symptoms. Patient drowsy during assessment and continuously falls asleep during questions. Patient has upcoming follow-up with Dr. Dupree, gastroenterology for recurrent ascites. She has a past medical history of ESRD on HD, DM Type 1, depression, anxiety, RLS, GERD, hypothyroidism, gout. Hospital Course: 1. Acute fluid overload secondary to missed dialysis regimen/ESRD with hyperkalemia chronic [id number] female who has end-stage renal disease as well as ascites presented to the hospital because she missed dialysis on Saturday and became very confused and edematous. She does not recall coming into the ER today on the day of discharge. She had dialysis done last night and then today which is her normal dialysis day and she had 5 L removed. She feels much better today and is alert and oriented to person, place and time. Of note she also had attempted paracentesis a few weeks ago and there is very little fluid that could be removed at that time. She will be discharged home per her request today, since she feels much better. I did discuss with her the risks of mood continually missing dialysis sessions which she states she understands. Her next dialysis will be on Saturday. 2. Type 1 diabetes-there is some confusion as to whether or not she takes Lantus. She was discharged on Lantus and 1 of her recent admissions however she says that it bottoms her out. The issue is that today her blood sugar was in the 300s. So I did discharge her on 3 units of Lantus at night and asked that she follow-up with the cutter operator brick Dr. Mclean as an outpatient. 3. Her other medical diagnoses were evaluated and her home medications were continued where appropriate - Physical Exam General: Alert, Oriented x3, Cooperative, No apparent distress HEENT: Atraumatic, PERRLA, EOMI, Normocephalic Oral: Moist Mucosa Neck: Supple, No JVD Lungs: Clear to auscultation, Normal air movement, No rhonchi, No wheeze, No rales, Diminished Cardiovascular: Regular rate, Regular Rhythm, Normal S1, Normal S2, No murmurs Abdomen: Soft, Non Tender, Non-Distended, No Hepato-splenomegaly Extremities: No edema, Capillary Refill Less than 3 Seconds Skin: No rashes, No breakdown Neurological: Neuro grossly intact, Sensory exam intact to light touch and pain Psych/Mental Status: Normal Affect, Appropriate Vital Signs Temp Pulse Resp BP Pulse Ox 97.5 F L 58 L 18 126/49 H 96 03/04/19 13:43 03/04/19 13:43 03/04/19 13:43 03/04/19 13:43 03/04/19 13:43 Oxygen Flow Rate (L/min) 3 Oxygen Delivery Method Room Air Weight: 208 lb 5.389 oz Body Mass Index (BMI) 35.9 Finger Stick Blood Glucose 250 Intake and Output for Last 24 Hours 03/02/19 03/03/19 03/04/19 23:59 23:59 23:59 Intake Total 0.05 / 0.05 340 / 340 Output Total 5000 / 5000 Balance 0.05 / 0.05 -4660 / -4660 Laboratory Tests Past 24 Hrs 03/03/19 03/03/19 03/03/19 14:55 14:55 18:55 WBC RBC Hgb Hct MCV MCH MCHC RDW Std Deviation RDW Coeff of Tegan Plt Count MPV Immature Gran % (Auto) Neut % (Auto) Lymph % (Auto) [place] % (Auto) Eos % (Auto) Baso % (Auto) Absolute Neuts (auto) Absolute Lymphs (auto) Nucleated RBC % Sodium 130 L Potassium 5.7 H Chloride 96 L Carbon Dioxide 22.0 Anion Gap 12 BUN 52 H Creatinine 6.58 H Estim Creat Clear Calc 9.41 Est GFR (MDRD) Af Amer 9 L Est GFR (MDRD) Non-Af 7 L BUN/Creatinine Ratio 7.9 L Glucose 200 H Calcium 7.9 L Phosphorus 9.1 H* Magnesium 2.2 Total Bilirubin 0.70 Direct Bilirubin 0.34 H AST 23 ALT 20 Alkaline Phosphatase 297 H Ammonia 67.0 H Troponin I 0.042 Total Protein 7.5 Albumin 2.9 L Globulin 4.6 H Albumin/Globulin Ratio 03/04/19 03/04/19 05:12 05:12 WBC 5.0 RBC 2.67 L Hgb 8.6 L Hct 27.2 L MCV 101.9 H MCH 32.2 H MCHC 31.6 L RDW Std Deviation 60.2 H RDW Coeff of Tegan 16.6 H Plt Count 129 L MPV 12.2 H Immature Gran % (Auto) 0.600 Neut % (Auto) 71.6 H Lymph % (Auto) 12.6 L [place] % (Auto) 8.2 Eos % (Auto) 6.4 H Baso % (Auto) 0.6 Absolute Neuts (auto) 3.6 Absolute Lymphs (auto) 0.63 L Nucleated RBC % 0 Sodium 135 L Potassium 5.4 H Chloride 100 Carbon Dioxide 22.0 Anion Gap 13 BUN 41 H Creatinine 5.47 H Estim Creat Clear Calc 11.32 Est GFR (MDRD) Af Amer 11 L Est GFR (MDRD) Non-Af 9 L BUN/Creatinine Ratio 7.5 L Glucose 164 H Calcium 7.2 L Phosphorus Magnesium Total Bilirubin 0.70 Direct Bilirubin AST 21 ALT 16 Alkaline Phosphatase 210 H Ammonia Troponin I Total Protein 5.9 L Albumin 2.2 L Globulin 3.7 Albumin/Globulin Ratio 0.6 L POC Glucose 03/04/19 03/04/19 03/04/19 13:22 06:54 00:03 POC Glucose 368 H 235 H 117 H 03/03/19 03/03/19 03/03/19 23:23 20:52 20:06 POC Glucose 48 L 94 62 L 03/03/19 19:42 POC Glucose 53 L Discharge Activity: Return to Normal Activity Call your doctor if you observe: Fever of 101 or Higher, Shortness of breath, Dizziness, Fainting spells, Swelling in the ankles, Chest pain, Increased palpitations (irregular heartbeat) Home Medications: Medications to take at Discharge Allopurinol [Zyloprim] 200 mg PO DAILY 10/28/16 Gabapentin [Neurontin] 300 mg PO DAILY 10/28/16 Latanoprost 0.005% [Xalatan Opthalmic] 1 drop EACH EYE QHS 10/28/16 Sevelamer Carbonate [Renvela] 3,200 mg PO TIDCM 05/17/17 ALPRAZolam [Xanax] 0.5 mg PO TID PRN PRN 11/22/18 Vit B Comp No.3/Folic/C/Biotin [Nephro-Reggie Rx Tablet] 1 ea PO DAILY 11/22/18 Pantoprazole Sodium [Protonix] 40 mg PO DAILY #30 tab 01/28/19 Insulin Lispro [Humalog KwikPen] 2 units SQ TIDCM 02/16/19 Insulin Lispro [Humalog KwikPen] See Protocol SUBCUT 4X/DAY 03/03/19 Lidocaine/Prilocaine [Lidocaine-Prilocaine Cream] 1 applic TP UD 03/03/19 Insulin Glargine [Lantus SoloStar Pen] 3 units SUBCUT QHS pen 03/04/19 Primary Care Physician: Elijah Curtis MD [Primary Care Provider] - Please follow up with your Primary Care Physician in: 3-5 days Please Follow Up With: Joshua Mclean MD When: 1-2 weeks Disposition: Home Minutes spent on discharge:: 35 Patient Condition:: Stable Medical Necessity - Tobacco Use Smoking Status: Former smoker Meaningful Use Info Meaningful Use Diagnoses (Choose all that apply): None applicable Code Visit OBSV E&M: 47151 Observation care discharge
== END 2019-03-04 16:00 | disposition home or self-care (01) ==
LOC: ED 14:51 → MS2 17:19
PROVIDERS: Nurse Practitioner Family; Admitting Provider Internal Medicine; Emergency Provider Emergency Medicine; Family Provider Family Medicine; PCP Family Medicine; Visit Provider Family Medicine
DX: E87.70 Fluid overload, unspecified (principal); N18.6 End stage renal disease; Z99.2 Dependence on renal dialysis; E10.22 Type 1 diabetes mellitus with diabetic chronic kidney disease; E87.5 Hyperkalemia; R00.1 Bradycardia, unspecified; E10.65 Type 1 diabetes mellitus with hyperglycemia; I48.0 Paroxysmal atrial fibrillation; I48.20 Chronic atrial fibrillation, unspecified; I12.0 Hypertensive chronic kidney disease with stage 5 chronic kidney disease or end stage renal disease; M10.9 Gout, unspecified; G25.81 Restless legs syndrome; F41.9 Anxiety disorder, unspecified; F32.9 Major depressive disorder, single episode, unspecified; K21.9 Gastro-esophageal reflux disease without esophagitis; Z79.899 Other long term (current) drug therapy; Z79.4 Long term (current) use of insulin; Z87.891 Personal history of nicotine dependence; Z91.15 Patient's noncompliance with renal dialysis; E03.9 Hypothyroidism, unspecified
CPT/HCPCS: 36415; 71045; 80048; 80053; 80076; 82140; 82962; 83735; 84100; 84484; 85025; 90937; 93005; 96372; 96374; 96375; 96376; 97802; 99218; 99285; J7030; A4216; G0257; G0378; J0610

== ENCOUNTER 2019-03-11 13:46 | Emergency (ER) | payer MEDICARE, OTHER, MEDICAID, SELFPAY ==
[2019-03-03 18:56] VITALS: BMI 35.9
[2019-03-11 13:52] VITALS: BP 92/59; PULSE 59; RESP 16; TEMP 37; O2SAT 100; BMI 36.8
[2019-03-11 14:11] VITALS: PULSE 50; RESP 18; TEMP 36.6; O2SAT 100
[2019-03-11 14:15] VITALS: BP 108/65; PULSE 51; RESP 16; O2SAT 100
[2019-03-11 14:15] LABS: Bedside Glucose 52 mg/dL (70-110)
--- NOTE | 2019-03-11 14:20 | ED.RN ---
UPON ARRIVAL BLOOD SUGAR WAS 32. ATTEMPTED LINE PER 2 RNS 3 TIMES. LINE ESTABLISHED. GLUCAGON GIVEN PER SQUAD.. PT JUST WAKES UP AND BEGINS TO TALK. BLOOD SUGAR 52. AOOLE JUICE WITH SUGAR TAKEN
--- NOTE | 2019-03-11 14:24 | EKG12_ITS ---
Test Reason : ABNL LABS Blood Pressure : / mmHG Vent. Rate : 050 BPM Atrial Rate : 050 BPM P-R Int : 178 ms QRS Dur : 100 ms QT Int : 566 ms P-R-T Axes : 086 022 125 degrees QTc Int : 516 ms Sinus bradycardia Cannot rule out Anterior infarct , age undetermined T wave abnormality, consider lateral ischemia Abnormal ECG Confirmed by JOSEPH JEREZ, CLAUDIA ([id number]), editor sound MARYAN AMBRIZ ([id number]) on 03/13/2019 1:17:08 PM Referred By: Nia Cannon Confirmed By:SAMSON RUIZ MD
[2019-03-11 15:09] VITALS: PULSE 51; RESP 18; O2SAT 99
[2019-03-11 15:10] LABS: Bedside Glucose 110 mg/dL (70-110)
--- NOTE | 2019-03-11 15:31 | ED.DCSUM_ITS ---
History of Present Illness Chief Complaint: Weakness Informant: Patient Onset: Today - an hour or less PUBLIC HEALTH PHYSICIAN Context: Sudden Onset - while sitting at dialysis Timing: Continuous Quality: shaky, possibly passed out Narrative: Patient was at dialysis when she became very shaky and lightheaded and she think she may have passed out. EMS reports that her blood sugar was around 30. She is an insulin-dependent diabetic. She was given IM glucagon by paramedics, and they thought maybe she was weaker on the right side, but since she was hypoglycemic after discussing with us via medical control, we did not have a prehospital stroke team called. Upon arrival here, the patient started to wake up, she was given some juice to drink, and rechecking her blood sugar it is in the 50s and she states she is feeling much better. She states she did not eat anything this morning but she still took her insulin prior to going to dialysis. Prior similar symptoms: No Recent Illness/Hospitalization: No - Past Medical History (1) Abnormal LFTs Status: Chronic (2) Anemia Status: Chronic (3) DM type 1 (diabetes mellitus, type 1) Status: Chronic (4) Depression Status: Chronic (5) End stage renal disease on dialysis Status: Chronic (6) Glaucoma Status: Chronic (7) Hypertension Status: Chronic (8) Hyperuricemia Status: Chronic (9) PAF (paroxysmal atrial fibrillation) Status: Chronic (10) Polyclonal gammopathy Status: Chronic Past Medical History - Allergies and Home Meds Allergies/Adverse Reactions: Allergies levothyroxine sodium [From Synthroid] Allergy (Verified 03/03/19 13:07) Swelling Penicillins [PCN] Allergy (Verified 03/03/19 13:07) Hives Primary Care Physician: Elijah Curtis MD [Primary Care Provider] - 3-5 Days if not improving Surgical History: cholecystectomy, hysterectomy, tonsillectomy, - - PD catheter placement, tunneled dialysis catheter placement, AVF 06/08/17. Smoking Status: Former smoker - Family History Maternal Family History: Reports: Cancer - Thyroid cancer and lung cancer, Diabetes, Heart Disease Paternal Family History: Reports: Diabetes, Heart Disease Review of Systems General: Reports: Malaise, - - I'm hungry. Denies: Chills, Fever, Sweats Eyes: Denies: Visual changes - bilaterally, Diplopia ENT: Denies: Rhinorrhea, Sore throat Cardiovascular: Denies: Chest pain, Palpitations Respiratory: Denies: Dyspnea, Cough, Dyspnea on exertion Gastrointestinal: Denies: Abdominal pain, Nausea, Vomiting, Diarrhea, Melena, Hematochezia Genitourinary: Denies: Dysuria, Hematuria, Frequency Musculoskeletal: Denies: Back pain, Extremity Pain Skin: Denies: Rash, Wounds Neurological: Denies: Headache, Weakness, Numbness Physical Exam Vital Signs/Narrative: Vital Signs Temp Pulse Pulse Resp BP Pulse Ox 03/11/19 15:09 51 L 18 99 03/11/19 14:15 51 L 16 108/65 100 03/11/19 14:11 98 F 50 L 18 100 03/11/19 13:52 98.6 F 59 L 16 92/59 L 100 Inital Vital Signs reviewed: Yes General: Well nourished, Well developed, No Acute Distress Head: Normocephalic, Atraumatic Eyes: Perrl, EOMI ENT: Moist mucous membranes, No rhinorrhea Neck: Supple, Nontender Cardiovascular: Regular rate, Regular rhythm, No murmurs Respiratory: No distress, CTA bilaterally, Chest nontender Abdomen: Soft, Nontender, Nondistended, Normal bowel sounds Back: Nontender, Normal Inspection Extremities: Nontender, No edema Skin: Normal color, No rash, No Trauma Neurological: Alert, Oriented x3, Cranial nerves II-XII grossly intact, Normal Strength, Normal Sensation, - - NIHSS-0 Psychological: Normal affect, Normal Mood Diagnostic/Tx/Re-eval - Rhythm Strip Rhythm Strip: Sinus Rhythm Rate: 52 Ectopy: None - EKG Initial EKG Interpretation: No Acute Injury Pattern, Sinus Bradycardia - at 50 - Medical Decision Making EKG is unremarkable, patient's neurologic exam is basically normal now that her blood sugar is corrected, so there is no need to call a stroke team. The history is very consistent with this being iatrogenic hypoglycemia due to taking her insulin and not eating enough carbohydrates. Therefore, I maintained a minimal work-up basically with repeating bedside fingerstick glucose checks in the EKG. She ate a meal. We checked her glucose several times and she maintained a good level over 100 and feels back to normal. Discharged home with appropriate precautions and instructions and reasons to return and she is comfortable with that plan. ED Disposition - Plan for ED Patient: Disposition: Home or Assisted Living Diagnosis: Hypoglycemia due to insulin Instructions: Diabetic Insulin Reaction Referrals: Elijah Curtis MD [Primary Care Provider] - 3-5 Days if not improving
[2019-03-11 16:46] LABS: Bedside Glucose 206 mg/dL (70-110)
[2019-03-11 16:55] VITALS: BP 102/59
[2019-03-12 15:51] LABS: Bedside Glucose 32 mg/dL (70-110)
== END 2019-03-11 17:00 | disposition home or self-care (01) ==
PROVIDERS: Emergency Provider Emergency Medicine; Family Provider Family Medicine; PCP Family Medicine
DX: E10.649 Type 1 diabetes mellitus with hypoglycemia without coma (principal); T38.3X5A Adverse effect of insulin and oral hypoglycemic [antidiabetic] drugs, initial encounter; Y92.9 Unspecified place or not applicable; Z79.4 Long term (current) use of insulin; I12.0 Hypertensive chronic kidney disease with stage 5 chronic kidney disease or end stage renal disease; E10.22 Type 1 diabetes mellitus with diabetic chronic kidney disease; N18.6 End stage renal disease; Z99.2 Dependence on renal dialysis; D63.1 Anemia in chronic kidney disease; D89.0 Polyclonal hypergammaglobulinemia; I48.0 Paroxysmal atrial fibrillation; H40.9 Unspecified glaucoma; F32.9 Major depressive disorder, single episode, unspecified; Z79.899 Other long term (current) drug therapy; Z87.891 Personal history of nicotine dependence
CPT/HCPCS: 82962; 93005; 99284; J7030; A4216; J1610

== ENCOUNTER 2019-03-16 05:32 | Observation (INO) | payer MEDICARE, OTHER, MEDICAID, SELFPAY ==
[2019-03-16 05:33] VITALS: BP 110/53; PULSE 59; RESP 16; TEMP 36.9; O2SAT 77; BMI 40.5
[2019-03-16 05:38] VITALS: O2SAT 95
[2019-03-16 05:44] VITALS: O2SAT 97
--- NOTE | 2019-03-16 05:46 | RAD_ITS ---
STUDY: X-RAY CHEST REASON FOR EXAM: Female, 48 years old. Shortness of breath. TECHNIQUE: Single AP portable view of the chest. COMPARISON: March 03, 2019 FINDINGS: Cardiac monitoring leads are present. The lungs are underexpanded with crowding of bronchovascular markings and obscuration of the lung bases. Considering this is similar to the previous study suggests the possibility of restrictive lung disease. There is right basilar airspace consolidation and possible atelectasis. There appears to be peribronchial cuffing at the left lung base. There is no demonstrated pleural abnormality. There is mild cardiac enlargement. There is prominence of the right hilar area suggesting the possibility of lymphadenopathy. There is prominence of the pulmonary hilar arteries without peripheral pulmonary vascular congestion. There is atherosclerotic calcification of the aortic arch with tortuosity. Normal visualized thoracic spine. Normal visualized ribs, clavicles, and shoulders. There is no demonstrated abnormality of the visualized soft tissue structures of the upper abdomen. RAD/Chest 1 View (Portable) IMPRESSION: 1. Expiratory chest radiograph with findings suggestive of a right basilar airspace consolidation and atelectasis. 2. Possible right-sided hilar lymphadenopathy. 3. Mild pulmonary congestion. Electronically Signed: Nai Curtis MD at 6:37 EDT , Service support ,
--- NOTE | 2019-03-16 05:46 | EKG12_ITS ---
Test Reason : SOB Blood Pressure : / mmHG Vent. Rate : 057 BPM Atrial Rate : 057 BPM P-R Int : 210 ms QRS Dur : 086 ms QT Int : 464 ms P-R-T Axes : -06 045 111 degrees QTc Int : 451 ms Sinus bradycardia with 1st degree A-V block Low voltage QRS Cannot rule out Anterior infarct (cited on or before 23-JAN-2019), age undetermined T wave abnormality, consider lateral ischemia Abnormal ECG Confirmed by ALONZO JEREZ, GERRY ([id number]), editor trade journal DANIEL HERZOG ([id number]) on 03/17/2019 10:56:31 AM Referred By: Nia Cannon Confirmed By:GERRY ROSADO MD
--- NOTE | 2019-03-16 05:47 | ED.VIS.GEN ---
History of Present Illness Chief Complaint: Shortness of Breath Narrative: Patient is a 48-year-old female who presents with abdominal distention and shortness of breath. She does have a history of type 1 diabetes and end-stage renal disease on hemodialysis. She did attend dialysis last week Saturday she has not recently missed dialysis. She has noted gradually progressing worsening lower extremity edema. She is also had increased abdominal distention especially since last night. She has felt short of breath at night. She does not use oxygen at home and was hypoxic for EMS. She was placed on a nasal cannula on arrival here to the emergency department. She denies any pain. No fevers congestion rhinorrhea cough vomiting diarrhea. Past Medical History - Allergies and Home Meds Allergies/Adverse Reactions: Allergies levothyroxine sodium [From Synthroid] Allergy (Verified 03/16/19 05:33) Swelling Penicillins [PCN] Allergy (Verified 03/16/19 05:33) Hives Primary Care Physician: Elijah Curtis MD [Primary Care Provider] - Past Medical History: - - End-stage renal disease, type 1 diabetes Surgical History: cholecystectomy, hysterectomy, tonsillectomy, - - PD catheter placement, tunneled dialysis catheter placement, AVF 06/08/17. Smoking Status: Former smoker - Family History Maternal Family History: Reports: Cancer - Thyroid cancer and lung cancer, Diabetes, Heart Disease Paternal Family History: Reports: Diabetes, Heart Disease Review of Systems All systems negative except as indicated General: Denies: Fever Cardiovascular: Denies: Chest pain Respiratory: Reports: Dyspnea. Denies: Cough Gastrointestinal: Denies: Abdominal pain, Nausea, Vomiting, Diarrhea Physical Exam Vital Signs/Narrative: Vital Signs Temp Pulse Resp BP Pulse Ox 03/16/19 05:44 97 03/16/19 05:33 98.4 F 59 L 16 110/53 L 77 Inital Vital Signs reviewed: Yes General: Well nourished, Well developed Head: Normocephalic Eyes: EOMI ENT: Moist mucous membranes Neck: Supple Cardiovascular: Regular rate, Regular rhythm Respiratory: Rales, - - Slightly tachypneic, bilateral rales Abdomen: Soft, - - Distended tympanitic abdomen Skin: Normal color Neurological: Alert Psychological: Normal affect Diagnostic/Tx/Re-eval - Medical Decision Making EKG shows sinus bradycardia with a first-degree AV block at a rate of 57. Normal QRS duration. No peak T waves or other findings of hyperkalemia on EKG. Labs were notable for chronic kidney disease and potassium of 5.7. Chest x-ray did show some mild pulmonary congestion as well as possible hilar lymphadenopathy and possible atelectasis or consolidation. Patient has no infectious symptoms such as cough or fever. No leukocytosis. I do not believe she has pneumonia. Her presentation is most consistent with fluid overload. I believe many of her symptoms will improve with dialysis. Given her hypoxia she will require hospitalization at this point. Patient to be discussed with the hospitalist and admitted. ED Disposition - Plan for ED Patient: Disposition: [facility] Diagnosis: Fluid overload, Hypoxia, Ascites Referrals: Elijah Curtis MD [Primary Care Provider] -
[2019-03-16 06:26] LABS: Absolute Lymphocyte Count 0.89 X10^3/uL (0.83-4.51); Absolute Neutrophil Count 4.9 X10^3/uL (2.0-7.7); Basophil# 0.05 X10^3/uL; Basophil% 0.8 % (0-1); Eosinophil# 0.23 X10^3/uL; Eosinophils% 3.5 % (0-5); Hematocrit 31.7 % (37-47); Hemoglobin 9.6 g/dL (12.0-15.0); Lymphocyte # 0.89 X10^3/ul (4.0); Lymphocyte % 13.5 % (19-41); Mean Corp Hgb Conc 30.3 g/dL (32-36); Mean Corpuscular Hgb 31.7 pg (27.0-32.0); Mean Corpuscular Volume 104.6 fL (81-99); Mean Platelet Vol. 11.2 fl (6.2-12.0); Monocyte# 0.45 X10^3/uL; Monocyte% 6.8 % (0-10); NRBC Flagged by Analyzer 0.3 % (0-5); Neutrophil # 4.89 X10^3/uL (2.7-7.7); Neutrophil % 74.5 % (47-70); Platelet Count 196 K/mm3 (150-450); RBC Distribution Width CV 15.2 % (11.6-14.6); RBC Distribution Width SD 57.9 fl (35.1-43.9); Red Blood Count 3.03 M/mm3 (4.2-5.4); White Blood Count 6.6 K/mm3 (4.4-11.0)
[2019-03-16 06:38] LABS: Anion Gap 9 (5-15); BUN 35 mg/dL (7-18); BUN/Creat Ratio 7.1 RATIO (10-20); Calcium,Total 7.5 mg/dL (8.5-10.1); Chloride 96 mmol/L (98-107); Creatinine, Serum 4.94 mg/dL (0.55-1.02); EST Glomerular Filtration Rate 10 mL/min (>60); Est Glom Filt Rate - Afr Amer 12 mL/min (>60); Estimated Creatinine Clearance 12.53 ml/min; Glucose 301 mg/dL (74-106); Potassium 5.7 mmol/L (3.5-5.1); Sodium Level 132 mmol/L (136-145)
--- NOTE | 2019-03-16 07:45 | HP.PCM_ITS ---
Problem List (1) Shortness of breath Status: Acute History of Present Illness Date of Admission: 03/16/19 Chief Complaint: Shortness of breath The patient is a 48 year old F was seen in the emergency room at [facility] with chief complaint of shortness of breath over the last 48 hours. Patient denies any chest pain, diaphoresis, fever, or chills. She is a chronic dialysis patient. She did not miss her last dialysis treatment-she has her treatments on Saturday, Wednesdays, and Fridays. Work-up in the emergency room included labs which showed hemoglobin of 9.6, creatinine was 4.9, BUN was 35. Patient's potassium was 5.7, glucose was 301. Chest x-ray was performed that showed mild vascular congestion and possible right basilar airspace disease. Patient was felt to be in fluid overload, she required 2 L of oxygen to maintain her pulse ox above 90%. Patient will be placed in observation status on [facility], she will be seen by nephrology and dialyzed today. Past Medical History Past Medical History (Chronic Problems): Chronic Problems (Last Updated 01/24/19 @ 13:27 by Daniella Donald MD) Abnormal LFTs (Chronic) Ascites (Chronic) Not verified from [facility] yet End stage renal disease on dialysis (Chronic) Polyclonal gammopathy (Chronic) PAF (paroxysmal atrial fibrillation) (Chronic) Glaucoma (Chronic) Depression (Chronic) Hyperuricemia (Chronic) Hypertension (Chronic) DM type 1 (diabetes mellitus, type 1) (Chronic) Anemia (Chronic) Medical History: Medical History (Last Updated 01/24/19 @ 13:27 by Daniella Donald MD) End stage renal disease on dialysis (Chronic) N18.6, Z99.2 Polyclonal gammopathy (Chronic) D89.0 PAF (paroxysmal atrial fibrillation) (Chronic) I48.0 Glaucoma (Chronic) H40.9 Depression (Chronic) F32.9 Hyperuricemia (Chronic) E79.0 Hypertension (Chronic) I10 DM type 1 (diabetes mellitus, type 1) (Chronic) E10.9 Anemia (Chronic) D64.9 Metabolic encephalopathy G93.41 DKA (diabetic ketoacidoses) E13.10 Seizure (Inactive) R56.9 ddue to hypoglycemia Allergies levothyroxine sodium [From Synthroid] Allergy (Verified 03/16/19 05:33) Swelling Penicillins [PCN] Allergy (Verified 03/16/19 05:33) Hives Home Medications: Ambulatory Orders Medication Instructions Recorded Allopurinol [Zyloprim] 200 mg PO DAILY 10/28/16 Gabapentin [Neurontin] 300 mg PO DAILY 10/28/16 Latanoprost 0.005% [Xalatan 1 drop EACH EYE QHS 10/28/16 Opthalmic] Sevelamer Carbonate [Renvela] 3,200 mg PO TIDCM 05/17/17 ALPRAZolam [Xanax] 0.5 mg PO TID PRN PRN 11/22/18 Vit B Comp No.3/Folic/C/Biotin 1 ea PO DAILY 11/22/18 [Nephro-Reggie Rx Tablet] Pantoprazole Sodium [Protonix] 40 mg PO DAILY #30 tab 01/28/19 Insulin Lispro [Humalog KwikPen] 2 units SQ TIDCM 02/16/19 Insulin Lispro [Humalog KwikPen] See Protocol SUBCUT 4X/DAY 03/03/19 Lidocaine/Prilocaine 1 applic TP UD 03/03/19 [Lidocaine-Prilocaine Cream] Insulin Glargine [Lantus SoloStar 3 units SUBCUT QHS pen 03/04/19 Pen] Surgical History: cholecystectomy, hysterectomy, tonsillectomy, - - PD catheter placement, tunneled dialysis catheter placement, AVF 06/08/17. 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 Denies: Anorexia, Chills, Fever, Night Sweats, Malaise, Weakness, Weight Change Eyes: Denies: Cataracts, Conjunctivae Inflammation, Eyelid Inflammation, Pain HEENT: Denies: Difficulty Swallowing, Dysphasia, Ear Pain, Eye Pain, Hearing Changes, Nasal bleeding, Nasal Congestion, Post Nasal Drip Cardiovascular: Denies: Chest Pain, Claudication, Chest Pressure, Chest Tightness, Light Headedness, Orthopnea, Palpitations Respiratory: Reports: Shortness of Breath. Denies: Cough, Hemoptysis, Pleuritic Pain, Shortness of breath at rest, Shortness of breath upon exertion, Sputum production Gastrointestinal: Denies: Abdominal Pain, Constipation, Diarrhea, Hematemesis, Hematochezia, Nausea, Melena, Vomiting Genitourinary: Denies: Dysuria, Frequency, Hematuria, Hesitancy, Urgency Gynecological: Denies: Breast symptoms Musculoskeletal: Denies: Back Pain, Foot Pain, Hand Pain, Joint Pain, Joint stiffness, Joint swelling, Joint Tenderness, Leg Pain Skin: Denies: Dryness, Jaundice, Pruritis, Rash Neurological: Denies: Blurred vision, Double vision, Change in Speech, Slurred speech, Difficulty swallowing, Focal weakness, Headaches, Incoordination, Numbness, Tingling Psychiatric: Denies: Anxiety, Depression, Homicidal Ideations, Suicidal Ideation s Endocrine: Denies: Change in Body Habitus, Heat/ Cold Intolerance, Polydipsia, Polyuria Hematologic/ Lymphatic: Denies: Adenopathy, Anemia, Easy Bruising, Easy Bleeding, Petechiae, Purpura VTE Information - Inpt Only VTE Present on Admission: No VTE Mechan Device Prophylaxis: None VTE Pharm Prophylaxis ordered?: No Reason prophylaxis not ordered:: Treatment Not Indicated Patient Problems: Active and Suspected Problems (Last Updated 01/24/19 @ 13:27 by Daniella Donald MD) Fluid overload (Acute) Hypoxia (Acute) Shortness of breath (Acute) - Physical Exam Vitals/I&O's: Vital Signs Temp Pulse Resp BP Pulse Ox 98.4 F 59 L 16 110/53 L 97 03/16/19 05:33 03/16/19 05:33 03/16/19 05:33 03/16/19 05:33 03/16/19 05:44 Oxygen Flow Rate (L/min) 2 Oxygen Delivery Method Nasal Cannula Weight: 110.495 kg Body Mass Index (BMI) 40.5 Finger Stick Blood Glucose 110 General: Alert, Oriented x3, Cooperative, No apparent distress, Well developed, Well nourished HEENT: Atraumatic, PERRLA, EOMI, Normocephalic Oral: Dry Mucosa Neck: Supple, No JVD, Negative Carotid Bruits, Trachea Midline, Thyroid Normal Size and Texture Lungs: Clear to auscultation, Normal air movement, No rhonchi, No wheeze, No rales Cardiovascular: Regular rate, Regular Rhythm, Normal S1, Normal S2, No murmurs, PMI Normal, No rub noted, No Gallop Abdomen: Bowel Sounds Present, Soft, Non Tender, Non-Distended, No hernias noted Extremities: No clubbing, No cyanosis, Capillary Refill Less than 3 Seconds, Edema - Generalized lower leg edema is noted bilaterally Skin: No rashes, No breakdown Musculoskeletal: No Tenderness to Palpation of Joints or Extremities, No Muscle Wasting Neurological: Cranial nerves II-XII grossly intact, Neuro grossly intact, Sensory exam intact to light touch and pain, Coordination normal Psych/Mental Status: Normal Affect, Appropriate, Alert and oriented to time, place, person, mood and affect Laboratory Results 03/16/19 06:20: WBC 6.6, RBC 3.03 L, Hgb 9.6 L, Hct 31.7 L, MCV 104.6 H, MCH 31.7, MCHC 30.3 L, RDW Std Deviation 57.9 H, RDW Coeff of Tegan 15.2 H, Plt Count 196, MPV 11.2, Immature Gran % (Auto) 0.900, Neut % (Auto) 74.5 H, Lymph % (Auto) 13.5 L, [place] % (Auto) 6.8, Eos % (Auto) 3.5, Baso % (Auto) 0.8, Absolute Neuts (auto) 4.9, Absolute Lymphs (auto) 0.89, Nucleated RBC % 0.3 03/16/19 06:20: Sodium 132 L, Potassium 5.7 H, Chloride 96 L, Carbon Dioxide 27.0, Anion Gap 9, BUN 35 H, Creatinine 4.94 H, Estim Creat Clear Calc 12.53, Est GFR (MDRD) Af Amer 12 L, Est GFR (MDRD) Non-Af 10 L, BUN/Creatinine Ratio 7.1 L, Glucose 301 H, Calcium 7.5 L Assessment/Plan All Active Problems (Last Updated 01/24/19 @ 13:27 by Daniella Donald MD) Hyperkalemia (Acute) Hyperglycemia (Acute) Fluid overload (Acute) Hypoxia (Acute) Shortness of breath (Acute) #1 fluid overload secondary to end-stage renal disease-patient will be placed in observation status on [facility], she will be seen by nephrology and undergo dialysis today. She may need to have additional dialysis tomorrow. #2 hypoxia secondary to #1-patient's pulse ox will be monitored #3 type 1 diabetes-blood sugars will be monitored #4 hyperkalemia-patient will undergo dialysis #5 anemia of chronic renal disease Code Visit OBSV E&M: 01292 Initial observation care L3
[2019-03-16 08:00] VITALS: BMI 38.8
[2019-03-16 08:03] VITALS: BP 120/60; PULSE 91; RESP 20; TEMP 37; O2SAT 91
[2019-03-16 08:56] LABS: Bedside Glucose 359 mg/dL (70-110)
[2019-03-16] MEDS: Insulin Lispro 100 UNIT/ML INSULN.PEN SC ×3 (09:32→12:04)
[2019-03-16] MEDS: Pantoprazole Sodium 40 MG Tablet PO (09:40)
[2019-03-16] MEDS: Folic Acid/Vitamin B Comp W-C 1 Capsule 1 CAP PO (09:40)
[2019-03-16] MEDS: Gabapentin 100 MG Capsule 300 MG PO (09:40)
[2019-03-16] MEDS: Allopurinol 100 MG Tablet 200 MG PO (09:40)
[2019-03-16 11:50] LABS: Bedside Glucose 332 mg/dL (70-110)
[2019-03-16] MEDS: SEVELAMER CARBONATE 800 MG TABLET 3200 MG PO ×2 (12:07→19:26)
[2019-03-16] MEDS: Midodrine HCl 5 MG Tablet 10 MG PO (16:13)
--- NOTE | 2019-03-16 17:12 | PCM.CONS.R ---
Problem List (1) Hyperkalemia Status: Acute (2) Fluid overload Status: Acute (3) End stage renal disease on dialysis Status: Chronic Consultation - Renal 03/16/19 PCP/ Referring MD: Requesting physician: [] Primary care physician: Elijah Curtis MD Reason for Consultation:: ESRD - History of Present Illness History of Present Illness: The patient is a 48 year old F well known to us. ESRD on HD MWF schedule. missed several treatments recently. now admitted with dyspnea. seen on HD - Allergies Allergies: Allergies levothyroxine sodium [From Synthroid] Allergy (Verified 03/16/19 05:33) Swelling Penicillins [PCN] Allergy (Verified 03/16/19 05:33) Hives - Current Medications Current Medications: Current Medications Acetaminophen (Tylenol) 650 mg PO Q6H PRN PRN PRN Reason: Pain Score 1-3/Temp > 100.7 F Allopurinol (Zyloprim) 200 mg PO DAILY [facility] Last Admin: 03/16/19 09:40 Dose: 200 mg Documented by: Alprazolam (Xanax) 0.5 mg PO TID PRN PRN PRN Reason: ANXIETY Dextrose (D50w Syringe) 0 gm IV X1 PRN; Protocol PRN Reason: Hypoglycemia Gabapentin (Neurontin) 300 mg PO DAILY [facility] Last Admin: 03/16/19 09:40 Dose: 300 mg Documented by: Glucagon () 1 mg IM .X1 PRN PRN Reason: Hypoglycemia Insulin Glargine (Lantus (Bkc)) 3 units SC QHS [place] Insulin Human Lispro (Humalog Kwikpen (Bkc)) 2 unit SC TIDCM [place] Last Admin: 03/16/19 12:04 Dose: 2 u Documented by: Insulin Human Lispro (Humalog Kwikpen (Bkc)) 0 unit SC ACHS [facility]; Protocol Last Admin: 03/16/19 12:04 Dose: 12 u Documented by: Latanoprost (Xalatan Opthalmic) 1 drop EACH EYE QHS [facility] Multivit/Ca Carb/B Cmplx/FA/Prenat (Nephrocaps, Renaphro) 1 capsule PO DAILY [facility] Last Admin: 03/16/19 09:40 Dose: 1 capsule Documented by: Ondansetron HCl (Zofran) 4 mg IV Q8H PRN PRN PRN Reason: NAUSEA/VOMITING Pantoprazole Sodium (Protonix) 40 mg PO DAILY [facility] Last Admin: 03/16/19 09:40 Dose: 40 mg Documented by: Sevelamer Carbonate (Renvela) 3,200 mg PO TIDCM [facility] Last Admin: 03/16/19 12:07 Dose: 3,200 mg Documented by: - Past Medical History Past Medical History (Chronic Problems): Chronic Problems (Last Updated 01/24/19 @ 13:27 by Daniella Donald MD) Abnormal LFTs (Chronic) Ascites (Chronic) Not verified from [facility] yet End stage renal disease on dialysis (Chronic) Polyclonal gammopathy (Chronic) PAF (paroxysmal atrial fibrillation) (Chronic) Glaucoma (Chronic) Depression (Chronic) Hyperuricemia (Chronic) Hypertension (Chronic) DM type 1 (diabetes mellitus, type 1) (Chronic) Anemia (Chronic) - Past Surgical History Surgical History: cholecystectomy, hysterectomy, tonsillectomy, - - PD catheter placement, tunneled dialysis catheter placement, AVF 06/08/17. - Social History Smoking Status: Former smoker Alcohol: None Drugs: None - Family History Maternal History Items: No pertinent history Paternal History Items: Heart Disease Review of Systems Unable to obtain accurate/complete ROS d/t: drowsiness Patient Problems: Active and Suspected Problems (Last Updated 01/24/19 @ 13:27 by Daniella Donald MD) Fluid overload (Acute) Hypoxia (Acute) Shortness of breath (Acute) - Physical Exam Vitals/I&O's: Vital Signs Temp Pulse Resp BP Pulse Ox 98.6 F 91 20 H 120/60 91 03/16/19 08:03 03/16/19 08:03 03/16/19 08:03 03/16/19 08:03 03/16/19 08:03 Oxygen Flow Rate (L/min) 2 Oxygen Delivery Method Nasal Cannula Weight: 105.8 kg Body Mass Index (BMI) 38.8 Finger Stick Blood Glucose 110 General: Lethargic HEENT: Atraumatic, PERRLA, EOMI, Normocephalic Neck: Supple, No JVD, Negative Carotid Bruits Lungs: Normal air movement, Short of Breath Cardiovascular: Regular rate, No murmurs Abdomen: Distended Extremities: Capillary Refill Less than 3 Seconds, Edema Skin: No rashes, No breakdown Musculoskeletal: No Tenderness to Palpation of Joints or Extremities Laboratory Results 03/16/19 06:20: WBC 6.6, RBC 3.03 L, Hgb 9.6 L, Hct 31.7 L, MCV 104.6 H, MCH 31.7, MCHC 30.3 L, RDW Std Deviation 57.9 H, RDW Coeff of Tegan 15.2 H, Plt Count 196, MPV 11.2, Immature Gran % (Auto) 0.900, Neut % (Auto) 74.5 H, Lymph % (Auto) 13.5 L, [place] % (Auto) 6.8, Eos % (Auto) 3.5, Baso % (Auto) 0.8, Absolute Neuts (auto) 4.9, Absolute Lymphs (auto) 0.89, Nucleated RBC % 0.3 03/16/19 06:20: Sodium 132 L, Potassium 5.7 H, Chloride 96 L, Carbon Dioxide 27.0, Anion Gap 9, BUN 35 H, Creatinine 4.94 H, Estim Creat Clear Calc 12.53, Est GFR (MDRD) Af Amer 12 L, Est GFR (MDRD) Non-Af 10 L, BUN/Creatinine Ratio 7.1 L, Glucose 301 H, Calcium 7.5 L 03/16/19 08:48: POC Glucose 359 H 03/16/19 11:47: POC Glucose 332 H Current Medications Acetaminophen (Tylenol) 650 mg PO Q6H PRN PRN PRN Reason: Pain Score 1-3/Temp > 100.7 F Allopurinol (Zyloprim) 200 mg PO DAILY [facility] Last Admin: 03/16/19 09:40 Dose: 200 mg Documented by: Alprazolam (Xanax) 0.5 mg PO TID PRN PRN PRN Reason: ANXIETY Dextrose (D50w Syringe) 0 gm IV X1 PRN; Protocol PRN Reason: Hypoglycemia Gabapentin (Neurontin) 300 mg PO DAILY [facility] Last Admin: 03/16/19 09:40 Dose: 300 mg Documented by: Glucagon () 1 mg IM .X1 PRN PRN Reason: Hypoglycemia Insulin Glargine (Lantus (Bk)) 3 units SC QHS [facility] Insulin Human Lispro (Humalog Kwikpen ([facility])) 2 unit SC TIDCM [facility] Last Admin: 03/16/19 12:04 Dose: 2 u Documented by: Insulin Human Lispro (Humalog Kwikpen (Bkc)) 0 unit SC ACHS [facility]; Protocol Last Admin: 03/16/19 12:04 Dose: 12 u Documented by: Latanoprost (Xalatan Opthalmic) 1 drop EACH EYE QHS [facility] Multivit/Ca Carb/B Cmplx/FA/Prenat (Nephrocaps, Renaphro) 1 capsule PO DAILY [facility] Last Admin: 03/16/19 09:40 Dose: 1 capsule Documented by: Ondansetron HCl (Zofran) 4 mg IV Q8H PRN PRN PRN Reason: NAUSEA/VOMITING Pantoprazole Sodium (Protonix) 40 mg PO DAILY [facility] Last Admin: 03/16/19 09:40 Dose: 40 mg Documented by: Sevelamer Carbonate (Renvela) 3,200 mg PO TIDCM [facility] Last Admin: 03/16/19 12:07 Dose: 3,200 mg Documented by: Assessment/Plan All Active Problems (Last Updated 01/24/19 @ 13:27 by Daniella Donald MD) Hyperkalemia (Acute) Hyperglycemia (Acute) Fluid overload (Acute) Hypoxia (Acute) Shortness of breath (Acute) ESRD. seen on HD today. see orders/flowsheets Hyperkalemia. HD today on 2 K bath dyspnea. as per admission weights she is almost 30 kg above EDW. has massive ascitis and edema. has not been to dialysis treatments recently.
[2019-03-16] MEDS: Dextrose 50%-Water 25 GM/50 ML DISP.SYRIN IV (19:41)
[2019-03-16 20:13] LABS: Glucose 38 mg/dL (74-106)
[2019-03-16 20:31] LABS: Bedside Glucose 34 mg/dL (70-110)
[2019-03-16 20:31] LABS: Bedside Glucose 35 mg/dL (70-110)
[2019-03-16 20:31] LABS: Bedside Glucose 92 mg/dL (70-110)
[2019-03-16 20:31] LABS: Bedside Glucose 23 mg/dL (70-110)
[2019-03-16 20:33] VITALS: BP 125/53; PULSE 60; RESP 18; TEMP 36.4; O2SAT 100
[2019-03-16] MEDS: Latanoprost 0.005% 1 Bottle 1 DRP EACH EYE (23:08)
--- NOTE | 2019-03-16 23:19 | NURSING ---
ACCUCHECK 67 PT REPORTS NO SYMPTOMS WILL GIVE MEAL
[2019-03-16 23:26] LABS: Bedside Glucose 67 mg/dL (70-110)
[2019-03-16 23:56] LABS: Bedside Glucose 80 mg/dL (70-110)
[2019-03-17] MEDS: Dextrose 50%-Water 25 GM/50 ML DISP.SYRIN IV (00:35)
[2019-03-17] MEDS: 0.9% Saline Lock 10 ML Syringe IV ×2 (00:40→04:31)
[2019-03-17] MEDS: Ondansetron 4 MG/2 ML Vial IV (04:31)
[2019-03-17 04:34] VITALS: BP 112/66; PULSE 61; RESP 16; TEMP 36.9; O2SAT 94
[2019-03-17 04:46] LABS: Bedside Glucose 127 mg/dL (70-110)
[2019-03-17 07:07] LABS: Anion Gap 7 (5-15); BUN 27 mg/dL (7-18); Calcium,Total 7.3 mg/dL (8.5-10.1); Chloride 99 mmol/L (98-107); Creatinine, Serum 3.84 mg/dL (0.55-1.02); EST Glomerular Filtration Rate 13 mL/min (>60); Est Glom Filt Rate - Afr Amer 16 mL/min (>60); Estimated Creatinine Clearance 16.12 ml/min; Glucose 151 mg/dL (74-106); Potassium 5.2 mmol/L (3.5-5.1); Sodium Level 134 mmol/L (136-145)
[2019-03-17 07:57] VITALS: BP 135/66; PULSE 58; RESP 18; TEMP 36.7; O2SAT 91
[2019-03-17 07:59] VITALS: O2SAT 88; O2SAT 95; O2SAT 96
[2019-03-17] MEDS: Folic Acid/Vitamin B Comp W-C 1 Capsule 1 CAP PO (08:13)
[2019-03-17] MEDS: SEVELAMER CARBONATE 800 MG TABLET 3200 MG PO ×2 (08:14→12:24)
[2019-03-17 08:15] VITALS: O2SAT 95
[2019-03-17] MEDS: Allopurinol 100 MG Tablet 200 MG PO (08:15)
[2019-03-17 08:16] LABS: Bedside Glucose 161 mg/dL (70-110)
[2019-03-17] MEDS: Pantoprazole Sodium 40 MG Tablet PO (08:16)
[2019-03-17] MEDS: Gabapentin 100 MG Capsule 300 MG PO (08:17)
[2019-03-17] MEDS: Insulin Lispro 100 UNIT/ML INSULN.PEN SC ×3 (08:19→12:26)
--- NOTE | 2019-03-17 08:28 | NURSING ---
Walking oxygen trial done, texted Dr. Villeda with results and that pt has crackles to annika posterior bases.
--- NOTE | 2019-03-17 08:36 | NURSING ---
Dr. Villeda is aware of oxygen Qualification results and that she has o2 at home. No new orders.
--- NOTE | 2019-03-17 11:14 | PCM.DC ---
- Discharge Diagnoses Current Active Problems: Current Active and Chronic Problems (Last Updated 01/24/19 @ 13:27 by Daniella Donald MD) Fluid overload (Acute) Hypoxia (Acute) Shortness of breath (Acute) Ascites (Chronic) Not verified from [facility] yet You will use the following diet at home:: Calorie/Carbohydrate Controlled (specify 1200, 1400, etc) - resume previous diet Your food should be the consistency of: Regular Your liquids should be the consistency of: Regular/Thin Discharge Activity: Return to Normal Activity Weight Bearing Status: Full weight bearing Allergies/Adverse Reactions: Allergies levothyroxine sodium [From Synthroid] Allergy (Verified 03/16/19 05:33) Swelling Penicillins [PCN] Allergy (Verified 03/16/19 05:33) Hives Medications to take at Discharge Allopurinol [Zyloprim] 200 mg PO DAILY 10/28/16 Gabapentin [Neurontin] 300 mg PO DAILY 10/28/16 Latanoprost 0.005% [Xalatan Opthalmic] 1 drop EACH EYE QHS 10/28/16 Sevelamer Carbonate [Renvela] 3,200 mg PO TIDCM 05/17/17 ALPRAZolam [Xanax] 0.5 mg PO TID PRN PRN 11/22/18 Vit B Comp No.3/Folic/C/Biotin [Nephro-Reggie Rx Tablet] 1 ea PO DAILY 11/22/18 Pantoprazole Sodium [Protonix] 40 mg PO DAILY #30 tab 01/28/19 Insulin Lispro [Humalog KwikPen] 2 units SQ TIDCM 02/16/19 Insulin Lispro [Humalog KwikPen] See Protocol SUBCUT 4X/DAY 03/03/19 Lidocaine/Prilocaine [Lidocaine-Prilocaine Cream] 1 applic TP UD 03/03/19 Insulin Glargine [Lantus SoloStar Pen] 3 units SUBCUT QHS pen 03/04/19 Primary Care Physician: Elijah Curtis MD [Primary Care Provider] - Please follow up with your Primary Care Physician in: at next appointment Test Results: Test results from this visit will be discussed in further detail at your follow-up appointment, if applicable.
--- NOTE | 2019-03-17 11:34 | CASEMGMT ---
Case Management Progress Note: This typewriter operator automatic went to patient bedside, patient sitting up in bed, introduced self and role. PALMER form explained and reviewed with patient in regards to current treatment this hospital stay. Notified patient that outpatient billing is determined by her insurance policy and status during hospital stay is continually reviewed for any changes in condition that may warrant inpatient stay. Patient stated understanding, denies any questions or concerns with PALMER form, signed PALMER form and original placed in patient hard chart. Patient given copy. Tavia Rodriguez RNCM
[2019-03-17 12:01] LABS: Bedside Glucose 189 mg/dL (70-110)
--- NOTE | 2019-03-17 18:22 | DS.PCM_ITS ---
Discharge Date and Diagnosis Date of Admission: 03/16/19 Date of Discharge: 03/17/19 - Primary Discharge Diagnosis #1 fluid overload secondary to end-stage renal disease #2 hypoxia secondary to #1 #3 type 1 diabetes #4 hyperkalemia #5 anemia of chronic renal disease - Secondary Discharge Diagnosis Chronic Problems (Last Updated 01/24/19 @ 13:27 by Daniella Donald MD) Abnormal LFTs (Chronic) Ascites (Chronic) Not verified from [facility] yet End stage renal disease on dialysis (Chronic) Polyclonal gammopathy (Chronic) PAF (paroxysmal atrial fibrillation) (Chronic) Glaucoma (Chronic) Depression (Chronic) Hyperuricemia (Chronic) Hypertension (Chronic) DM type 1 (diabetes mellitus, type 1) (Chronic) Anemia (Chronic) Hospital Course and Treatment Operations: None Procedures: Dialysis Summary of Care Provided: The patient is a 48 year old F was seen in the emergency room at [facility] with a chief complaint of shortness of breath, work-up in the emergency room included a chest x-ray which showed evidence of vascular congestion, labs showed a hemoglobin of 9.6, creatinine was 4.9, BUN was 35. Patient's potassium was 5.7, glucose was 301. Patient was felt to be in fluid overload, she was a dialysis patient and was scheduled to have dialysis on that date, she was placed in observation status on MedSurg 3 and was seen in consultation by nephrology and underwent dialysis. Patient's symptoms improved and the following day she was off supplemental oxygen. On 03/17/2019, patient was seen and examined: On examination she appeared in good health and spirits. Vital signs as documented. Skin warm and dry and without overt rashes. Neck without JVD. Lungs clear. Heart exam notable for regular rhythm, normal sounds and absence of murmurs, rubs or gallops. Abdomen unremarkable and without evidence of organomegaly, masses, or abdominal aortic enlargement. Extremities nonedematous. Neuro: Cranial nerves II through XII are grossly intact, no focal motor deficits were noted, sensation to light touch and pinprick is intact. Psych: Patient is alert and oriented x3, she does not appear anxious or depressed On 03/17/2019, patient was seen and examined and felt to be in stable condition for discharge home. - Physical Exam Vitals/I&O's: Vital Signs Temp Pulse Resp BP Pulse Ox 98.1 F 58 L 18 135/66 H 95 03/17/19 07:57 03/17/19 07:57 03/17/19 07:57 03/17/19 07:57 03/17/19 08:15 Oxygen Flow Rate (L/min) [ 2 AMBULATION with Oxygen] Oxygen Flow Rate (L/min) [At 0 REST on Room Air] Oxygen Flow Rate (L/min) 2 Oxygen Delivery Method Room Air Weight: 105.8 kg Body Mass Index (BMI) 38.8 Finger Stick Blood Glucose 110 Intake and Output for Last 24 Hours 03/15/19 03/16/19 03/17/19 23:59 23:59 23:59 Output Total 5000 / 5000 Balance -5000 / -5000 Laboratory Results 03/16/19 18:46: POC Glucose 35 L* 03/16/19 19:07: POC Glucose 23 L* 03/16/19 19:35: Glucose 38 L* 03/16/19 19:40: POC Glucose 34 L* 03/16/19 20:19: POC Glucose 92 03/16/19 23:11: POC Glucose 67 L 03/16/19 23:51: POC Glucose 80 03/17/19 04:37: POC Glucose 127 H 03/17/19 06:20: Sodium 134 L, Potassium 5.2 H, Chloride 99, Carbon Dioxide 28.0, Anion Gap 7, BUN 27 H, Creatinine 3.84 H, Estim Creat Clear Calc 16.12, Est GFR (MDRD) Af Amer 16 L, Est GFR (MDRD) Non-Af 13 L, BUN/Creatinine Ratio 7.0 L, Glucose 151 H, Calcium 7.3 L 03/17/19 08:12: POC Glucose 161 H 03/17/19 11:54: POC Glucose 189 H Discharge Activity: Return to Normal Activity Weight Bearing Status: Full weight bearing Home Medications: Medications to take at Discharge Allopurinol [Zyloprim] 200 mg PO DAILY 10/28/16 Gabapentin [Neurontin] 300 mg PO DAILY 10/28/16 Latanoprost 0.005% [Xalatan Opthalmic] 1 drop EACH EYE QHS 10/28/16 Sevelamer Carbonate [Renvela] 3,200 mg PO TIDCM 05/17/17 ALPRAZolam [Xanax] 0.5 mg PO TID PRN PRN 11/22/18 Vit B Comp No.3/Folic/C/Biotin [Nephro-Reggie Rx Tablet] 1 ea PO DAILY 11/22/18 Pantoprazole Sodium [Protonix] 40 mg PO DAILY #30 tab 01/28/19 Insulin Lispro [Humalog KwikPen] 2 units SQ TIDCM 02/16/19 Insulin Lispro [Humalog KwikPen] See Protocol SUBCUT 4X/DAY 03/03/19 Lidocaine/Prilocaine [Lidocaine-Prilocaine Cream] 1 applic TP UD 03/03/19 Insulin Glargine [Lantus SoloStar Pen] 3 units SUBCUT QHS pen 03/04/19 Primary Care Physician: Elijah Curtis MD [Primary Care Provider] - Please follow up with your Primary Care Physician in: at next appointment Disposition: Home Minutes spent on discharge:: 31 Patient Condition:: Stable Medical Necessity - Tobacco Use Smoking Status: Former smoker Tobacco Use: Non-smoker Meaningful Use Info Meaningful Use Diagnoses (Choose all that apply): None applicable Code Visit OBSV E&M: 52752 Observation care discharge
== END 2019-03-17 12:47 | disposition home or self-care (01) ==
LOC: ED 06:50 → MS3 08:06
PROVIDERS: Admitting Provider Internal Medicine; Emergency Provider Emergency Medicine; Family Provider Family Medicine; PCP Family Medicine; Visit Provider Internal Medicine
DX: E87.79 Other fluid overload (principal); N18.6 End stage renal disease; E10.22 Type 1 diabetes mellitus with diabetic chronic kidney disease; E87.5 Hyperkalemia; R00.1 Bradycardia, unspecified; I44.0 Atrioventricular block, first degree; R18.8 Other ascites; F32.9 Major depressive disorder, single episode, unspecified; I12.9 Hypertensive chronic kidney disease with stage 1 through stage 4 chronic kidney disease, or unspecified chronic kidney disease; D89.0 Polyclonal hypergammaglobulinemia; D63.1 Anemia in chronic kidney disease; R09.02 Hypoxemia; I48.0 Paroxysmal atrial fibrillation; I48.20 Chronic atrial fibrillation, unspecified; Z79.899 Other long term (current) drug therapy; Z79.4 Long term (current) use of insulin; Z99.2 Dependence on renal dialysis; Z87.891 Personal history of nicotine dependence; F41.9 Anxiety disorder, unspecified; E10.65 Type 1 diabetes mellitus with hyperglycemia
CPT/HCPCS: 36415; 49083; 71045; 80048; 82947; 82962; 85025; 90937; 93005; 96374; 96375; 96376; 97802; 99218; 99285; A4216; G0257; G0378; J2405

== ENCOUNTER → 2019-03-17 12:51 | Outpatient (CLI) | payer MEDICARE, OTHER, MEDICAID, SELFPAY ==
[2019-02-16 18:38] VITALS: BMI 32.1
[2019-03-16 08:00] VITALS: BMI 38.8
--- NOTE | 2019-03-17 12:54 | US_ITS ---
PROCEDURE: Ultrasound guided paracentesis. DATE OF EXAMINATION: March 17, 2019. INDICATION: Female, 48 years old. Ascites. PHYSICIAN: Thuan Benton M.D. TECHNIQUE: The risks, benefits, and alternatives to the procedure were explained to the patient. The specific risks of bleeding, infection, and damage to bowel were detailed and accepted. Witnessed informed consent was obtained. The abdomen was ultrasonographically surveyed. An appropriate pocket of fluid was identified at the right pelvis. The skin were cleaned and prepped in the usual sterile fashion. Using ultrasound guidance, the peritoneal cavity was accessed with a 5-Egyptian paracentesis needle/catheter system. The trocar was removed. A total of 120 ml of bloody fluid were removed from the peritoneal cavity. The catheter was removed and a sterile dressing was applied. The procedure was well tolerated. US/Paracentesis with US IMPRESSION: Ultrasound guided paracentesis. Electronically Signed: Thuan Benton, at 14:05 EDT , Service support ,
[2019-03-17 12:57] VITALS: BP 146/77; BP 147/74; BP 152/71; BP 152/77; BP 161/63; PULSE 60; PULSE 62; PULSE 63; PULSE 66; RESP 18; O2SAT 90; O2SAT 91; O2SAT 94
== END ==
PROVIDERS: Family Provider Family Medicine; PCP Family Medicine; Referring Provider Internal Medicine Nephrology; Visit Provider Internal Medicine Nephrology
DX: R18.8 Other ascites (principal); N18.6 End stage renal disease
CPT/HCPCS: 49083